=== PATIENT | male | born 1960 | race African-American/Black ===

== ENCOUNTER 2016-08-25 16:02 | Inpatient (IN) ==
[2016-08-25] MEDS ORDERED: *HR* Dextrose 50 % in Water (Syg) 50 ML SYRINGE IVP PRN ×2 (16:14→19:50)
--- NOTE | 2016-08-25 16:18 | Emergency Department Note ---
Disposition Clinical Impression: Hyperglycemia Altered mental status Qualifiers: Altered mental status type: unspecified Qualified Code(s): R41.82 - Altered mental status, unspecified Disposition: Admitted As Inpatient Condition: Undetermined Forms: ED Satisfaction Letter Time of Disposition: 17:46 General Adult HPI - General Chief complaint: ED Neuro Symptoms/Deficit Stated complaint: "I think he is having a stroke" Time Seen by Provider: 08/25/16 16:13 Source: patient, family Mode of arrival: ambulatory Limitations: altered mental status Nursing Notes Reviewed: Yes Vital Signs Reviewed: Yes - History of Present Illness HPI Narrative: 56-year-old male with history of diabetes, CAD, CVA, CKD, arrives [facility] emergency department complaining of confusion. The patient's significant other states that yesterday evening the patient began complaining of confusion and not feeling well. The patient's daughter states that roughly 1 hour ago she was notified and decided to bring the patient to the hospital at that time. The patient's family is unaware of when his last CVA was. The patient has never received TPA in the past. The patient denies any previous history of [facility]. The patient denies any complaints at this time. He is oriented to person and place. Patient denies any other complaints at this time. Onset (ago): unknown Improves with: nothing Worsens with: nothing Associated symptoms: Reports: confusion - Related Data Home Medications Medication Instructions Recorded Confirmed Glimepiride [Amaryl] 2 mg PO 04/10/16 Simvastatin [Zocor] 10 mg PO 04/10/16 Previous Rx's Medication Instructions Recorded Gentamicin OPTH Soln 1 drop LEFT EYE QID #1 bottle 04/10/16 Allergies Allergy/AdvReac Type Severity Reaction Status Date / Time No Known Allergies Allergy Verified 08/25/16 16:09 Constitutional: Denies: fever, chills, weakness, weight change Eyes: Denies: eye pain, eye discharge, vision change ENT ED: Denies: ear pain, throat pain, dental pain, hearing loss, epistaxis, congestion, dysphagia Cardiovascular: Denies: chest pain, palpitations, dyspnea on exertion, edema, syncope Respiratory: Denies: cough, dyspnea, wheezes, hemoptysis, stridor Gastrointestinal: Denies: abdominal pain, nausea, vomiting, diarrhea, constipation, hematemesis, melena, hematochezia Genitourinary: Denies: urgency, dysuria, frequency, hematuria Musculoskeletal: Denies: back pain, neck pain, arthralgia, myalgia Integumentary: Denies: rash, abrasion, lesions Neurological: Reports: confusion. Denies: headache, weakness, numbness, paresthesias Past Medical History - Past Medical History Attestation: Yes The following information was validated with the patient. Source: patient Medical history: Reports: coronary artery disease, CVA, diabetes, hyperlipidemia , hypertension Surgical history: Reports: non-contributory Psychiatric history: Reports: no psych history - Social History Smoking Status: Current every day smoker Smokeless Tobacco Status: No Alcohol use: Reports: none Drug use: Reports: none Physical Exam - General Limitations: altered mental status General appearance: alert, in no apparent distress - Head Head exam: atraumatic, normocephalic, normal inspection - Eye Eye exam: Present: normal appearance, PERRL, EOMI - ENT ENT exam: normal exam, normal oropharynx, mucous membranes moist - Chest Chest inspection: Present: normal inspection, symmetric chest wall rise - Respiratory Respiratory exam: Present: normal lung sounds bilaterally - Cardiovascular Cardiovascular exam: Present: regular rate, normal rhythm, normal heart sounds - Abdominal Exam Abdominal exam: Present: soft, Non-Tender. Absent: tenderness, distention, guarding, rebound, rigidity - Extremities Exam Extremities exam: Present: normal inspection, full ROM. Absent: tenderness, pedal edema - Neurological Exam Neurological exam: Present: alert - Expanded Neurological Exam Patient oriented to: Present: person, place. Absent: time Speech: Present: expressive aphasia Cranial nerves: EOM function (II, III, IV, ): Normal, facial sensation (V): Normal, facial palsy (VII): Normal, gag reflex (IX): Normal, spinal accessory function (XI): Normal, tongue deviation (XII): Normal Motor strength - LUE: 5/5 Motor strength - RUE: 5/5 Motor strength - LLE: 5/5 Motor strength - RLE: 5/5 Sensory exam upper extremity: light touch: Normal Sensory exam lower extremity: light touch: Normal Coma Scale Eye Opening: Spontaneous Coma Scale Motor Response: Obeys Commands Coma Scale Verbal Response: Confused Coma Scale Total: 14 - Skin Skin exam: Present: warm, dry, intact, normal color Course Vital Signs Temperature 99.4 F 08/25/16 16:09 Pulse Rate 81 08/25/16 16:09 Respiratory Rate 16 08/25/16 16:09 Blood Pressure 150/84 08/25/16 16:09 O2 Sat by Pulse Oximetry 96 08/25/16 16:09 Temperature 99.4 F 08/25/16 16:09 Pulse Rate 74 08/25/16 17:15 Respiratory Rate 17 08/25/16 16:18 Blood Pressure 130/73 08/25/16 17:15 O2 Sat by Pulse Oximetry 97 08/25/16 17:15 Oxygen Delivery Oxygen Delivery Room Air Medical Decision Making - MDM Narrative Medical decision making narrative: Accepted to hospitalist - Medical Records Medical records reviewed: Yes I reviewed the patient's medical records. - Lab Data Lab results reviewed: Yes I reviewed the patient's lab results. Result diagrams: 08/25/16 16:19 08/25/16 16:19 Lab Results 08/25/16 08/25/16 08/25/16 Range/Units 16:11 16:19 16:19 WBC 8.6 (4.3-11.1) K/mcL RBC 4.81 (4.19-5.50) M/mcL Hgb 13.9 (12.9-16.9) g/dL Hct 41.4 (37.5-50.1) % MCV 86.1 (83.0-100.0) fL MCH 28.9 (28.0-33.3) pg MCHC 33.6 (31.6-35.5) g/dL RDW 12.5 (11.5-14.5) % Plt Count 249 (140-400) K/mcL MPV 11.0 (9.4-12.4) fL Immature Gran % 0.2 (0-4) % Seg Neutrophils % 75.9 % Lymphocytes % 16.2 % Monocytes % 5.5 % Eosinophils % 1.5 % Basophils % 0.7 % Neutrophils # 6.5 (1.6-8.9) K/mcL Lymphocytes # 1.4 (0.6-4.6) K/mcL Monocytes # 0.5 (0.0-1.3) K/mcL Eosinophils # 0.1 (0.0-0.6) K/mcL Basophils # 0.1 (0.0-0.2) K/mcL VBG pH (7.32-7.42) pH Units VBG pCO2 (41-51) mmHg VBG pO2 (25-40) mmHg VBG HCO3 (21-27) mEq/L Sodium 137 (136-145) mEq/L Potassium 3.8 (3.5-4.5) mEq/L Chloride 100 (98-109) mEq/L Carbon Dioxide 26 (19-29) mEq/L BUN 14 (8-26) mg/dL Creatinine 1.38 H (0.72-1.25) mg/dL Est GFR ( Amer) > 60 (> 60) Est GFR (Non-Af Amer) 53 L (> 60) BUN/Creatinine Ratio 10 (6-26) Glucose 647 H* (70-99) mg/dL POC Glucose 545 H* (58-89) Calculated Osmolality 315 H (280-300) Lactic Acid (0.5-2.2) mmol/L Calcium 9.0 (8.6-10.8) mg/dL Total Bilirubin 0.6 (0.2-1.2) mg/dL AST 12 (5-34) Units/L ALT 25 (0-55) Units/L Alkaline Phosphatase 134 H (38-126) Units/L Troponin I (0-0.03) ng/mL Serum Total Protein 7.7 (6.0-8.3) g/dL Albumin 3.8 (3.5-5.0) g/dL Globulin 3.9 H (2.4-3.5) g/dL Albumin/Globulin Ratio 1.0 L (1.1-2.2) Beta-Hydroxybutyric Acd 0.21 (0.02-0.27) mmol/L Urine Color (Yellow) Urine Clarity (Clear) Urine pH (5.0-8.0) pH Units Ur Specific [place] (1.010-1.025) Urine Protein (Neg-Trace) mg/dL Urine Glucose (UA) (Normal) mg/dL Urine Ketones (Negative) mg/dL Urine Blood (Negative) Urine Nitrite (Negative) Urine Bilirubin (Negative) Urine Urobilinogen (Normal) mg/dL Ur Leukocyte Esterase (Negative) Ur Culture Indicated? (NO) Urine Opiates Screen (Hpjktd=116) ng/mL Ur Barbiturates Screen (Bljsxy=147) ng/mL Ur Phencyclidine Scrn (Cutoff=25) ng/mL Ur Amphetamines Screen (Ctzubk=4779) ng/mL U Benzodiazepines Scrn (Qnqkjz=320) ng/mL Urine Cocaine Screen (Cutoff= 300) ng/mL U Marijuana (THC) Screen (Cutoff = 50) ng/mL 08/25/16 08/25/16 08/25/16 Range/Units 16:19 16:19 16:35 WBC (4.3-11.1) K/mcL RBC (4.19-5.50) M/mcL Hgb (12.9-16.9) g/dL Hct (37.5-50.1) % MCV (83.0-100.0) fL MCH (28.0-33.3) pg MCHC (31.6-35.5) g/dL RDW (11.5-14.5) % Plt Count (140-400) K/mcL MPV (9.4-12.4) fL Immature Gran % (0-4) % Seg Neutrophils % % Lymphocytes % % Monocytes % % Eosinophils % % Basophils % % Neutrophils # (1.6-8.9) K/mcL Lymphocytes # (0.6-4.6) K/mcL Monocytes # (0.0-1.3) K/mcL Eosinophils # (0.0-0.6) K/mcL Basophils # (0.0-0.2) K/mcL VBG pH 7.39 (7.32-7.42) pH Units VBG pCO2 46 (41-51) mmHg VBG pO2 85 H (25-40) mmHg VBG HCO3 27.8 H (21-27) mEq/L Sodium (136-145) mEq/L Potassium (3.5-4.5) mEq/L Chloride (98-109) mEq/L Carbon Dioxide (19-29) mEq/L BUN (8-26) mg/dL Creatinine (0.72-1.25) mg/dL Est GFR ( Amer) (> 60) Est GFR (Non-Af Amer) (> 60) BUN/Creatinine Ratio (6-26) Glucose (70-99) mg/dL POC Glucose (58-89) Calculated Osmolality (280-300) Lactic Acid 2.9 H (0.5-2.2) mmol/L Calcium (8.6-10.8) mg/dL Total Bilirubin (0.2-1.2) mg/dL AST (5-34) Units/L ALT (0-55) Units/L Alkaline Phosphatase (38-126) Units/L Troponin I 0.00 (0-0.03) ng/mL Serum Total Protein (6.0-8.3) g/dL Albumin (3.5-5.0) g/dL Globulin (2.4-3.5) g/dL Albumin/Globulin Ratio (1.1-2.2) Beta-Hydroxybutyric Acd (0.02-0.27) mmol/L Urine Color (Yellow) Urine Clarity (Clear) Urine pH (5.0-8.0) pH Units Ur Specific [place] (1.010-1.025) Urine Protein (Neg-Trace) mg/dL Urine Glucose (UA) (Normal) mg/dL Urine Ketones (Negative) mg/dL Urine Blood (Negative) Urine Nitrite (Negative) Urine Bilirubin (Negative) Urine Urobilinogen (Normal) mg/dL Ur Leukocyte Esterase (Negative) Ur Culture Indicated? (NO) Urine Opiates Screen (Xxltae=995) ng/mL Ur Barbiturates Screen (Fqazof=692) ng/mL Ur Phencyclidine Scrn (Cutoff=25) ng/mL Ur Amphetamines Screen (Cjqjgv=4233) ng/mL U Benzodiazepines Scrn (Ifiwis=856) ng/mL Urine Cocaine Screen (Cutoff= 300) ng/mL U Marijuana (THC) Screen (Cutoff = 50) ng/mL 08/25/16 08/25/16 Range/Units 16:55 16:55 WBC (4.3-11.1) K/mcL RBC (4.19-5.50) M/mcL Hgb (12.9-16.9) g/dL Hct (37.5-50.1) % MCV (83.0-100.0) fL MCH (28.0-33.3) pg MCHC (31.6-35.5) g/dL RDW (11.5-14.5) % Plt Count (140-400) K/mcL MPV (9.4-12.4) fL Immature Gran % (0-4) % Seg Neutrophils % % Lymphocytes % % Monocytes % % Eosinophils % % Basophils % % Neutrophils # (1.6-8.9) K/mcL Lymphocytes # (0.6-4.6) K/mcL Monocytes # (0.0-1.3) K/mcL Eosinophils # (0.0-0.6) K/mcL Basophils # (0.0-0.2) K/mcL VBG pH (7.32-7.42) pH Units VBG pCO2 (41-51) mmHg VBG pO2 (25-40) mmHg VBG HCO3 (21-27) mEq/L Sodium (136-145) mEq/L Potassium (3.5-4.5) mEq/L Chloride (98-109) mEq/L Carbon Dioxide (19-29) mEq/L BUN (8-26) mg/dL Creatinine (0.72-1.25) mg/dL Est GFR ( Amer) (> 60) Est GFR (Non-Af Amer) (> 60) BUN/Creatinine Ratio (6-26) Glucose (70-99) mg/dL POC Glucose (58-89) Calculated Osmolality (280-300) Lactic Acid (0.5-2.2) mmol/L Calcium (8.6-10.8) mg/dL Total Bilirubin (0.2-1.2) mg/dL AST (5-34) Units/L ALT (0-55) Units/L Alkaline Phosphatase (38-126) Units/L Troponin I (0-0.03) ng/mL Serum Total Protein (6.0-8.3) g/dL Albumin (3.5-5.0) g/dL Globulin (2.4-3.5) g/dL Albumin/Globulin Ratio (1.1-2.2) Beta-Hydroxybutyric Acd (0.02-0.27) mmol/L Urine Color Yellow (Yellow) Urine Clarity Clear (Clear) Urine pH 6.0 (5.0-8.0) pH Units Ur Specific [place] > 1.030 H (1.010-1.025) Urine Protein Negative (Neg-Trace) mg/dL Urine Glucose (UA) >=1000 H (Normal) mg/dL Urine Ketones Negative (Negative) mg/dL Urine Blood Negative (Negative) Urine Nitrite Negative (Negative) Urine Bilirubin Negative (Negative) Urine Urobilinogen Normal (Normal) mg/dL Ur Leukocyte Esterase Negative (Negative) Ur Culture Indicated? NO (NO) Urine Opiates Screen Negative (Xmgfpq=936) ng/mL Ur Barbiturates Screen Negative (Dbmrgd=864) ng/mL Ur Phencyclidine Scrn Negative (Cutoff=25) ng/mL Ur Amphetamines Screen Negative (Whyoih=6579) ng/mL U Benzodiazepines Scrn Negative (Afegyi=703) ng/mL Urine Cocaine Screen Negative (Cutoff= 300) ng/mL U Marijuana (THC) Screen Negative (Cutoff = 50) ng/mL - Radiology Data Radiology results reviewed: Yes I reviewed the patient's radiology results. - EKG Data EKG #1 EKG attestation: Yes I reviewed and interpreted this EKG. EKG results narrative: Heart rate 77 bpm. TN interval 160 ms. QTC 400 ms. Normal axis. Normal sinus rhythm. No ST elevation or ST depression noted. EKG similar to EKG from 03/22/2012. No acute changes noted.
[2016-08-25 16:37] LABS: Basophils # 0.1 K/mcL (0.0-0.2); Basophils % 0.7 %; Eosinophils # 0.1 K/mcL (0.0-0.6); Eosinophils % 1.5 %; Hematocrit 41.4 % (37.5-50.1); Hemoglobin 13.9 g/dL (12.9-16.9); Immature Granulocytes % 0.2 % (0-4); Lymphocytes # 1.4 K/mcL (0.6-4.6); Lymphocytes % 16.2 %; Mean Corpuscular HGB Conc 33.6 g/dL (31.6-35.5); Mean Corpuscular Hemoglobin 28.9 pg (28.0-33.3); Mean Corpuscular Volume 86.1 fL (83.0-100.0); Monocytes # 0.5 K/mcL (0.0-1.3); Monocytes % 5.5 %; Neutrophils # 6.5 K/mcL (1.6-8.9); Platelet Count 249 K/mcL (140-400); Red Blood Count 4.81 M/mcL (4.19-5.50); Red Cell Distribution Width 12.5 % (11.5-14.5); Segmented Neutrophils % 75.9 %
[2016-08-25 16:40] LABS: Beta-Hydroxybutyric Acid 0.21 mmol/L (0.02-0.27)
[2016-08-25 16:51] LABS: Alanine Aminotransferase 25 Units/L (0-55); Albumin 3.8 g/dL (3.5-5.0); Alkaline Phosphatase 134 Units/L (38-126); Aspartate Amino Transferase 12 Units/L (5-34); BUN/Creatinine Ratio 10 (6-26); Bilirubin,Total 0.6 mg/dL (0.2-1.2); Blood Urea Nitrogen 14 mg/dL (8-26); Carbon Dioxide 26 mEq/L (19-29); Chloride 100 mEq/L (98-109); Globulin 3.9 g/dL (2.4-3.5); Osmolality,Calculated 315 (280-300); Potassium 3.8 mEq/L (3.5-4.5); Sodium 137 mEq/L (136-145); Total Protein 7.7 g/dL (6.0-8.3); eGFR For African Americans > 60 (> 60); eGFR For Non-African Americans 53 (> 60)
[2016-08-25 16:53] LABS: VBG HCO3 27.8 mEq/L (21-27); VBG PH 7.39 pH Units (7.32-7.42)
[2016-08-25] MEDS: 0.9 % Sodium Chloride 1,000 ML IVC SCH ×3 (16:53→22:52)
[2016-08-25 16:55] LABS: Glucose 647 mg/dL (70-99)
[2016-08-25] MEDS ORDERED: Insulin Regular, Human 100 UNIT/ML IV ONE (16:58)
--- NOTE | 2016-08-25 16:58 | Emergency Department Note ---
Disposition Clinical Impression: Altered mental status, Hyperglycemia Disposition: Admitted As Inpatient Condition: Undetermined General Adult HPI - General Chief complaint: ED Neuro Symptoms/Deficit Stated complaint: "I think he is having a stroke" Time Seen by Provider: 08/25/16 16:13 Source: patient, family Mode of arrival: ambulatory Limitations: altered mental status - History of Present Illness Pain Scale: 0 Improves with: nothing Worsens with: nothing Associated symptoms: Reports: confusion - Related Data Home Medications Medication Instructions Recorded Confirmed Atorvastatin Calcium 80 mg PO HS 08/25/16 08/25/16 Cetirizine HCl [Zyrtec] 10 mg PO DAILY 08/25/16 08/25/16 Clopidogrel [Plavix] 75 mg PO DAILY 08/25/16 08/25/16 Glimepiride [Amaryl] 4 mg PO QAM 08/25/16 08/25/16 Lisinopril [Zestril] 20 mg PO DAILY 08/25/16 08/25/16 Pioglitazone HCl [Pioglitazone HCl] 30 mg PO DAILY 08/25/16 08/25/16 raNITIdine HCl [Ranitidine HCl] 150 mg PO BID 08/25/16 08/25/16 Allergies Allergy/AdvReac Type Severity Reaction Status Date / Time No Known Allergies Allergy Verified 08/25/16 16:09 Constitutional: Denies: fever, chills, weakness, weight change Eyes: Denies: eye pain, eye discharge, vision change ENT ED: Denies: ear pain, throat pain, dental pain, hearing loss, epistaxis, congestion, dysphagia Cardiovascular: Denies: chest pain, palpitations, dyspnea on exertion, edema, syncope Respiratory: Denies: cough, dyspnea, wheezes, hemoptysis, stridor Gastrointestinal: Denies: abdominal pain, nausea, vomiting, diarrhea, constipation, hematemesis, melena, hematochezia Genitourinary: Denies: urgency, dysuria, frequency, hematuria Musculoskeletal: Denies: back pain, neck pain, arthralgia, myalgia Integumentary: Denies: rash, abrasion, lesions Neurological: Reports: confusion. Denies: headache, weakness, numbness, paresthesias Past Medical History - Past Medical History Medical history: Reports: coronary artery disease, CVA, diabetes, hyperlipidemia , hypertension Surgical history: Reports: non-contributory Psychiatric history: Reports: no psych history - Social History Smoking Status: Current every day smoker Smokeless Tobacco Status: No Alcohol use: Reports: none Drug use: Reports: none Physical Exam - General Limitations: altered mental status General appearance: alert, in no apparent distress Course - Reevaluation(s) Reevaluation #1: I saw the patient with the resident, Dr. Yates. Patient was brought in by family saying that he has some altered mental status and they are concerned he might be having a stroke. The family disputes the exact duration of symptoms. Sounds like he may been having trouble since yesterday. Patient seems confused as he cannot even tell me why he is here in the emergency department. I do not find any focal neurologic deficits. We are going to do a workup on the patient that we will include a stroke workup but also look for metabolic issues and infectious issues. Disposition will be based on diagnostic results and reevaluation. Time: 16:57 Vital Signs Temperature 99.4 F 08/25/16 16:09 Pulse Rate 81 08/25/16 16:09 Respiratory Rate 16 08/25/16 16:09 Blood Pressure 150/84 08/25/16 16:09 O2 Sat by Pulse Oximetry 96 08/25/16 16:09 Temperature 99.4 F 08/25/16 16:09 Pulse Rate 68 08/25/16 18:37 Respiratory Rate 18 08/25/16 18:43 Blood Pressure 144/66 08/25/16 18:43 O2 Sat by Pulse Oximetry 97 08/25/16 18:37 Oxygen Delivery Oxygen Delivery Room Air Medical Decision Making - Lab Data Result diagrams: 08/25/16 16:19 08/25/16 16:19 Lab Results 08/25/16 08/25/16 08/25/16 Range/Units 16:11 16:19 16:19 WBC 8.6 (4.3-11.1) K/mcL RBC 4.81 (4.19-5.50) M/mcL Hgb 13.9 (12.9-16.9) g/dL Hct 41.4 (37.5-50.1) % MCV 86.1 (83.0-100.0) fL MCH 28.9 (28.0-33.3) pg MCHC 33.6 (31.6-35.5) g/dL RDW 12.5 (11.5-14.5) % Plt Count 249 (140-400) K/mcL MPV 11.0 (9.4-12.4) fL Immature Gran % 0.2 (0-4) % Seg Neutrophils % 75.9 % Lymphocytes % 16.2 % Monocytes % 5.5 % Eosinophils % 1.5 % Basophils % 0.7 % Neutrophils # 6.5 (1.6-8.9) K/mcL Lymphocytes # 1.4 (0.6-4.6) K/mcL Monocytes # 0.5 (0.0-1.3) K/mcL Eosinophils # 0.1 (0.0-0.6) K/mcL Basophils # 0.1 (0.0-0.2) K/mcL VBG pH (7.32-7.42) pH Units VBG pCO2 (41-51) mmHg VBG pO2 (25-40) mmHg VBG HCO3 (21-27) mEq/L Sodium 137 (136-145) mEq/L Potassium 3.8 (3.5-4.5) mEq/L Chloride 100 (98-109) mEq/L Carbon Dioxide 26 (19-29) mEq/L BUN 14 (8-26) mg/dL Creatinine 1.38 H (0.72-1.25) mg/dL Est GFR ( Amer) > 60 (> 60) Est GFR (Non-Af Amer) 53 L (> 60) BUN/Creatinine Ratio 10 (6-26) Glucose 647 H* (70-99) mg/dL POC Glucose 545 H* (58-89) Calculated Osmolality 315 H (280-300) Lactic Acid (0.5-2.2) mmol/L Calcium 9.0 (8.6-10.8) mg/dL Total Bilirubin 0.6 (0.2-1.2) mg/dL AST 12 (5-34) Units/L ALT 25 (0-55) Units/L Alkaline Phosphatase 134 H (38-126) Units/L Troponin I (0-0.03) ng/mL Serum Total Protein 7.7 (6.0-8.3) g/dL Albumin 3.8 (3.5-5.0) g/dL Globulin 3.9 H (2.4-3.5) g/dL Albumin/Globulin Ratio 1.0 L (1.1-2.2) Beta-Hydroxybutyric Acd 0.21 (0.02-0.27) mmol/L Urine Color (Yellow) Urine Clarity (Clear) Urine pH (5.0-8.0) pH Units Ur Specific [place] (1.010-1.025) Urine Protein (Neg-Trace) mg/dL Urine Glucose (UA) (Normal) mg/dL Urine Ketones (Negative) mg/dL Urine Blood (Negative) Urine Nitrite (Negative) Urine Bilirubin (Negative) Urine Urobilinogen (Normal) mg/dL Ur Leukocyte Esterase (Negative) Ur Culture Indicated? (NO) Urine Opiates Screen (Unojog=818) ng/mL Ur Barbiturates Screen (Xviosf=515) ng/mL Ur Phencyclidine Scrn (Cutoff=25) ng/mL Ur Amphetamines Screen (Dmygjv=1299) ng/mL U Benzodiazepines Scrn (Izitbl=611) ng/mL Urine Cocaine Screen (Cutoff= 300) ng/mL U Marijuana (THC) Screen (Cutoff = 50) ng/mL 08/25/16 08/25/16 08/25/16 Range/Units 16:19 16:19 16:35 WBC (4.3-11.1) K/mcL RBC (4.19-5.50) M/mcL Hgb (12.9-16.9) g/dL Hct (37.5-50.1) % MCV (83.0-100.0) fL MCH (28.0-33.3) pg MCHC (31.6-35.5) g/dL RDW (11.5-14.5) % Plt Count (140-400) K/mcL MPV (9.4-12.4) fL Immature Gran % (0-4) % Seg Neutrophils % % Lymphocytes % % Monocytes % % Eosinophils % % Basophils % % Neutrophils # (1.6-8.9) K/mcL Lymphocytes # (0.6-4.6) K/mcL Monocytes # (0.0-1.3) K/mcL Eosinophils # (0.0-0.6) K/mcL Basophils # (0.0-0.2) K/mcL VBG pH 7.39 (7.32-7.42) pH Units VBG pCO2 46 (41-51) mmHg VBG pO2 85 H (25-40) mmHg VBG HCO3 27.8 H (21-27) mEq/L Sodium (136-145) mEq/L Potassium (3.5-4.5) mEq/L Chloride (98-109) mEq/L Carbon Dioxide (19-29) mEq/L BUN (8-26) mg/dL Creatinine (0.72-1.25) mg/dL Est GFR ( Amer) (> 60) Est GFR (Non-Af Amer) (> 60) BUN/Creatinine Ratio (6-26) Glucose (70-99) mg/dL POC Glucose (58-89) Calculated Osmolality (280-300) Lactic Acid 2.9 H (0.5-2.2) mmol/L Calcium (8.6-10.8) mg/dL Total Bilirubin (0.2-1.2) mg/dL AST (5-34) Units/L ALT (0-55) Units/L Alkaline Phosphatase (38-126) Units/L Troponin I 0.00 (0-0.03) ng/mL Serum Total Protein (6.0-8.3) g/dL Albumin (3.5-5.0) g/dL Globulin (2.4-3.5) g/dL Albumin/Globulin Ratio (1.1-2.2) Beta-Hydroxybutyric Acd (0.02-0.27) mmol/L Urine Color (Yellow) Urine Clarity (Clear) Urine pH (5.0-8.0) pH Units Ur Specific [place] (1.010-1.025) Urine Protein (Neg-Trace) mg/dL Urine Glucose (UA) (Normal) mg/dL Urine Ketones (Negative) mg/dL Urine Blood (Negative) Urine Nitrite (Negative) Urine Bilirubin (Negative) Urine Urobilinogen (Normal) mg/dL Ur Leukocyte Esterase (Negative) Ur Culture Indicated? (NO) Urine Opiates Screen (Ykljgq=578) ng/mL Ur Barbiturates Screen (Tpkxla=767) ng/mL Ur Phencyclidine Scrn (Cutoff=25) ng/mL Ur Amphetamines Screen (Yweshv=0933) ng/mL U Benzodiazepines Scrn (Hlmltf=739) ng/mL Urine Cocaine Screen (Cutoff= 300) ng/mL U Marijuana (THC) Screen (Cutoff = 50) ng/mL 06/06/17 06/06/17 Range/Units 16:55 16:55 WBC (4.3-11.1) K/mcL RBC (4.19-5.50) M/mcL Hgb (12.9-16.9) g/dL Hct (37.5-50.1) % MCV (83.0-100.0) fL MCH (28.0-33.3) pg MCHC (31.6-35.5) g/dL RDW (11.5-14.5) % Plt Count (140-400) K/mcL MPV (9.4-12.4) fL Immature Gran % (0-4) % Seg Neutrophils % % Lymphocytes % % Monocytes % % Eosinophils % % Basophils % % Neutrophils # (1.6-8.9) K/mcL Lymphocytes # (0.6-4.6) K/mcL Monocytes # (0.0-1.3) K/mcL Eosinophils # (0.0-0.6) K/mcL Basophils # (0.0-0.2) K/mcL VBG pH (7.32-7.42) pH Units VBG pCO2 (41-51) mmHg VBG pO2 (25-40) mmHg VBG HCO3 (21-27) mEq/L Sodium (136-145) mEq/L Potassium (3.5-4.5) mEq/L Chloride (98-109) mEq/L Carbon Dioxide (19-29) mEq/L BUN (8-26) mg/dL Creatinine (0.72-1.25) mg/dL Est GFR ( Amer) (> 60) Est GFR (Non-Af Amer) (> 60) BUN/Creatinine Ratio (6-26) Glucose (70-99) mg/dL POC Glucose (58-89) Calculated Osmolality (280-300) Lactic Acid (0.5-2.2) mmol/L Calcium (8.6-10.8) mg/dL Total Bilirubin (0.2-1.2) mg/dL AST (5-34) Units/L ALT (0-55) Units/L Alkaline Phosphatase (38-126) Units/L Troponin I (0-0.03) ng/mL Serum Total Protein (6.0-8.3) g/dL Albumin (3.5-5.0) g/dL Globulin (2.4-3.5) g/dL Albumin/Globulin Ratio (1.1-2.2) Beta-Hydroxybutyric Acd (0.02-0.27) mmol/L Urine Color Yellow (Yellow) Urine Clarity Clear (Clear) Urine pH 6.0 (5.0-8.0) pH Units Ur Specific [place] > 1.030 H (1.010-1.025) Urine Protein Negative (Neg-Trace) mg/dL Urine Glucose (UA) >=1000 H (Normal) mg/dL Urine Ketones Negative (Negative) mg/dL Urine Blood Negative (Negative) Urine Nitrite Negative (Negative) Urine Bilirubin Negative (Negative) Urine Urobilinogen Normal (Normal) mg/dL Ur Leukocyte Esterase Negative (Negative) Ur Culture Indicated? NO (NO) Urine Opiates Screen Negative (Sbjegj=513) ng/mL Ur Barbiturates Screen Negative (Gbpsaa=458) ng/mL Ur Phencyclidine Scrn Negative (Cutoff=25) ng/mL Ur Amphetamines Screen Negative (Ehxlbz=8739) ng/mL U Benzodiazepines Scrn Negative (Xthhkn=612) ng/mL Urine Cocaine Screen Negative (Cutoff= 300) ng/mL U Marijuana (THC) Screen Negative (Cutoff = 50) ng/mL Attestation Statement - Attestation Attestation: I, Dr. Taylor, examined this patient [id number] and my medical decision- making was reviewed with Dr. Yates, Resident Physician. I agree with the documented findings, disposition and treatment plan as described except to the extent set forth below. Please see my progress notes for details.
[2016-08-25 17:06] LABS: Bilirubin,Urine Negative (Negative); Blood,Urine Negative (Negative); Clarity,Urine Clear (Clear); Color,Urine Yellow (Yellow); Glucose,Urine (UA) >=1000 mg/dL (Normal); Ketones,Urine Negative (Negative); Leukocyte Esterase,Urine Negative (Negative); Nitrite,Urine Negative (Negative); Protein,Urine Negative (Neg-Trace); Specific Gravity,Urine > 1.030 (1.010-1.025); Urobilinogen,Urine Normal (Normal)
[2016-08-25 17:11] LABS: Amphetamine Screen,Urine Negative ng/mL (Cutoff=1000); Barbiturate Screen,Urine Negative ng/mL (Cutoff=200); Benzodiazepines Screen,Urine Negative ng/mL (Cutoff=200); Cannabinoid Screen,Urine Negative ng/mL (Cutoff = 50); Cocaine Screen,Urine Negative ng/mL (Cutoff= 300); Opiate Screen,Urine Negative ng/mL (Cutoff=300); Phencyclidine Screen,Urine Negative ng/mL (Cutoff=25)
[2016-08-25] MEDS ORDERED: Dextrose Gel 15 GM PO PRN ×2 (19:50)
[2016-08-25] MEDS ORDERED: D5% in Water 1,000 ML IVC PRN (19:50)
[2016-08-25] MEDS ORDERED: Ipratropium/Albuterol Neb 3 ML IH PRN (19:53)
[2016-08-25] MEDS ORDERED: Nitroglycerin 0.4 MG TAB.SUBL SL PRN (19:53)
[2016-08-25] MEDS ORDERED: Acetaminophen 325 MG TABLET PO PRN (19:55)
[2016-08-25] MEDS ORDERED: Naloxone 0.4 MG/ML INJ IVP PRN (19:55)
[2016-08-25] MEDS ORDERED: *HR* Morphine 2 MG/ML SYRINGE IVP PRN (19:55)
[2016-08-25] MEDS ORDERED: Ondansetron 4 MG/2 ML VIAL IVP PRN (19:55)
[2016-08-25] MEDS ORDERED: Insulin LISPRO 300 UNITS/3 ML VIAL SQ SCH ×3 (20:00→21:00)
--- NOTE | 2016-08-25 20:01 | Internal Med History&Physical ---
Date of Encounter: 08/25/16 Time of Encounter: 19:58 Assessment and Plan (1) Hyperosmolar non-ketotic state in patient with type 2 diabetes mellitus Current visit: Yes Status: Acute Continue with Levemir 10 units at night, and insulin lispro 3 units 3 times a day plus a sliding scale Consider starting insulin drip Continue oral hypoglycemic agents Ordered hemoglobin A1c for the morning The patient will be admitted as inpatient, expected stay more than 2 midnights. Full code. Time spent on these admission 40 minutes. High risk for CVA (2) CVA (cerebral vascular accident) Current visit: Yes Status: Acute Possible new acute CVA of the CT scan shows possibly new scattered lacunar infarcts Start aspirin, continue Plavix Neurochecks Other MRI of the brain, echocardiogram and carotid ultrasounds Neurology consult Physical therapy Qualifiers: CVA mechanism: unspecified Qualified Code(s): I63.9 - Cerebral infarction, unspecified (3) Slurred speech Current visit: Yes Status: Acute (4) Hypertension Current visit: Yes Status: Acute Permissive hypertension Qualifiers: Hypertension type: essential hypertension Qualified Code(s): I10 - Essential (primary) hypertension (5) Tobacco abuse Current visit: Yes Status: Acute Smoking cessation counseling given for 5 minutes. Offer nicotine patch (6) CKD (chronic kidney disease) stage 3, GFR 30-59 ml/min Current visit: Yes Status: Acute (7) Altered mental status Current visit: Yes Status: Acute Possibly from metabolic encephalopathy from hyper glycemic nonketotic state versus CVA Qualifiers: Altered mental status type: unspecified Qualified Code(s): R41.82 - Altered mental status, unspecified Internal Medicine - H&P: HPI Chief complaint: After mental status and elevated glucose Admitted From: Emergency Dept History of present illness: Mr. Chapman is a 56 year old male with a past medical history of diabetes type 2 not insulin-dependent, CVA, CAD, hypertension, hyperlipidemia, who came to the emergency room brought by his family members as they thought he was having a stroke. Patient has been more confused lately and his speech has been more slurred than usual. In the emergency room she was found to have a glucose of 647 CT scan of the head showed chronic lacunar infarcts with generalized diffuse atrophy in the thalamic areas lior, unknown whether there are new or old. The patient is alert, he is a poor historian. He has a chronic left upper extremity weakness. The patient received 5 units of IV insulin down the emergency room and his glucose dropped to the 300s. His blood pressure is 150/ 84. He is able to follow commands, denies any other symptoms or complaints at the moment. Does not use any insulin at home. Past Med Surg Social Fam HX - Past Medical History Medical history: coronary artery disease, CVA, diabetes (Not insulin-dependent) , hyperlipidemia, hypertension, other (Tobacco use, chronic kidney disease stage III, hyperosmolar nonketotic state) Psychiatric history: no psych history - Past Surgical History Surgical History: no surgical history - Social History Smoking Status: Current every day smoker Packs per day: 1 pack per day Smokeless Tobacco Status: No Alcohol use: none Drug use: none - Additional Family History Additional family history: Father with CVA and myocardial infarction in his 50s , other family members with diabetes Internal Medicine - H&P: Meds Atorvastatin Calcium 80 mg PO HS 08/25/16 [History] Cetirizine HCl [Zyrtec] 10 mg PO DAILY 08/25/16 [History] Clopidogrel [Plavix] 75 mg PO DAILY 08/25/16 [History] Glimepiride [Amaryl] 4 mg PO QAM 08/25/16 [History] Lisinopril [Zestril] 20 mg PO DAILY 08/25/16 [History] Pioglitazone HCl [Pioglitazone HCl] 30 mg PO DAILY 08/25/16 [History] raNITIdine HCl [Ranitidine HCl] 150 mg PO BID 08/25/16 [History] Allergies No Known Allergies Allergy (Verified 08/25/16 16:09) All Systems PM: A 10-system review of systems was performed and is negative for pertinent findings except as documented above in the HPI. Review of systems: Slurred speech, other systems out of the 10 reviewed are negative - Constitutional Vitals: Temp Pulse Resp BP Pulse Ox 98.1 F 57 16 126/66 97 08/25/16 19:30 08/25/16 19:30 08/25/16 19:30 08/25/16 19:30 08/25/16 19:30 General appearance: Present: A&O X 3 (Slurred speech) - Head Head exam: Present: atraumatic, normocephalic - Eye Eye exam: Present: PERRL, conjuntiva pink, sclera anicteric Pupils: Present: PERRL - Neck Neck exam general surgery: Present: supple, trachea midline. Absent: lymphadenopathy - Respiratory Respiratory exam: Present: CTAB. Absent: accessory muscle use, rales, rhonchi, wheezes - Cardiovascular Cardiovascular exam: Present: RRR, +S1, +S2. Absent: diastolic murmur, gallop, rubs, systolic murmur - GI/Abdominal GI/Abdominal exam: Present: normal bowel sounds, soft, no peritoneal signs. Absent: distended, tenderness - Extremities Exam Extremities exam: Present: warm, radial pulses palpable and symetrical. Absent : calf tenderness, cyanotic, pedal edema Additional comments: slight weakness on the left upper extremity - Neurological Exam Neurological exam: Present: CN II-XII intact, oriented X3, no focal deficits. Absent: pronater drift, facial droop, speech deficit - Skin Skin exam: Present: dry, intact Internal Med - H&P Results - Labs CBC & Chem 7: 08/25/16 16:19 08/25/16 16:19
[2016-08-25] MEDS ORDERED: Insulin DETEMIR 100 UNIT/ML X5UNITS SQ SCH ×2 (21:00→21:10)
[2016-08-25] MEDS: Aspirin Enteric Coated 325 MG Tablet PO SCH (21:13)
[2016-08-25] MEDS: Famotidine 20 MG TABLET PO SCH (21:13)
[2016-08-25] MEDS: Insulin DETEMIR 100 UNIT/ML X5UNITS SQ SCH (22:50)
[2016-08-25] MEDS: *HR* Enoxaparin 40 MG/0.4 ML SYRINGE SQ SCH (22:50)
[2016-08-25] MEDS: Insulin LISPRO 300 UNITS/3 ML VIAL SQ SCH (22:51)
[2016-08-25] MEDS: Nicotine 21 MG PATCH.TD24 TD SCH (22:58)
[2016-08-26 05:06] LABS: Hemoglobin A1C 8.8 %
[2016-08-26 05:17] LABS: BUN/Creatinine Ratio 11 (6-26); Blood Urea Nitrogen 10 mg/dL (8-26); Calcium 8.4 mg/dL (8.6-10.8); Carbon Dioxide 24 mEq/L (19-29); Chloride 112 mEq/L (98-109); Glucose 154 mg/dL (70-99); Osmolality,Calculated 300 (280-300); Potassium 3.2 mEq/L (3.5-4.5); eGFR For African Americans > 60 (> 60); eGFR For Non-African Americans > 60 (> 60)
[2016-08-26 05:18] LABS: Sodium 144 mEq/L (136-145)
[2016-08-26] MEDS: *HR* Enoxaparin 40 MG/0.4 ML SYRINGE SQ SCH (05:49)
[2016-08-26] MEDS ORDERED: *HR* Glimepiride 4 MG TABLET PO SCH (09:00)
[2016-08-26] MEDS ORDERED: *HR* Pioglitazone 30 MG TABLET PO SCH (09:00)
[2016-08-26] MEDS: Nicotine 21 MG PATCH.TD24 TD SCH (10:02)
[2016-08-26] MEDS: Aspirin Enteric Coated 325 MG Tablet PO SCH (10:02)
[2016-08-26] MEDS: Lisinopril 20 MG TABLET PO SCH (10:02)
[2016-08-26] MEDS: Famotidine 20 MG TABLET PO SCH ×2 (10:02→20:58)
[2016-08-26] MEDS: Insulin LISPRO 300 UNITS/3 ML VIAL SQ SCH ×4 (10:03→20:59)
--- NOTE | 2016-08-26 15:24 | Electrocardiograph Report ---
[place] [address] Test Date: 2016-08-25 Pat Name: Cristian Chapman Department: 104 Room: 3B Gender: M Systems Developer: : 1960 Requested By: Tristen Yates Order Number: [id number] Reading MD: Janes Edward MD Measurements Intervals [place] Rate: 77 P: 55 TN: 160 QRS: 4 QRSD: 97 T: 61 QT: 368 QTc: 400 Interpretive Statements SINUS RHYTHM Electronically Signed On 08-26-2016 15:23:20 EDT by Janes Edward MD
--- NOTE | 2016-08-26 17:22 | Neurology - Consult Note ---
Date of Encounter: 08/26/16 Time of Encounter: 17:19 Assessment and Plan (1) CVA (cerebral vascular accident) Current Visit: Yes Status: Acute Patient has experienced an acute pontine infarct eccentric to the left which is resulting n a left-sided weakness as well as significant dysarthric speech. I would not expect a pontine infarct was resultant confusion however. This is the result of a small vessel infarct which is associated with his risk factors of poorly controlled diabetes mellitus, and cigarette smoking. I did inform Mr. Chapman that this is a very malignant combination. Not certain whether or not he understands the significance of all of this. Smoking cessation is absolutely necessary. As is better compliance. I would also recommend Plavix 75 mg daily indefinitely. Stroke protocol orders should be implemented. I will reevaluate him at your request. The documentation in the history of HPI and plan were at least partially created by [employer] voice recognition technology by Dr. Chapman. Errors in grammar, wording or other phrases may exist. If errors are found after the documentation signed, they will be addressed individually in the addendum section of this document when appropriate. Qualifiers: CVA mechanism: unspecified Qualified Code(s): I63.9 - Cerebral infarction, unspecified History of Present Illness HPI: Mr. Chapman is a 56 year old male who was seen for neurologic consultation secondary to an acute pontine infarction. This gentleman has a known history of diabetes and is apparently noncompliant because he came in with glucose level of 647. He also smokes a pack sequence a day. He states that at the time that his symptoms onset he was apparently eating at [employer] with his family. He suddenly developed dysarthric speech. Apparently he also had some confusion. He is not a good historian. He is very cooperative. He denies taking aspirin daily. He denies difficulty swallowing. He does have left sided weakness. I did review the MRI scan of the brain which does reveal a left central pontine infarction. I did review the MRI scan myself and also reveals severe deep white matter ischemic change along with multiple bilateral lacunar infarcts. Carotid duplex Doppler and echocardiogram were unrevealing. His blood pressure was mildly elevated but not severely. Past Med Surg Social Fam HX - Past Medical History Medical history: coronary artery disease, CVA, diabetes, hyperlipidemia, hypertension, other Psychiatric history: no psych history - Past Surgical History Surgical History: no surgical history - Social History Smoking Status: Current every day smoker Packs per day: 1 pack per day Smokeless Tobacco Status: No Alcohol use: none Drug use: none Medications and Allergies Atorvastatin Calcium 80 mg PO HS 08/25/16 [History] Cetirizine HCl [Zyrtec] 10 mg PO DAILY 08/25/16 [History] Clopidogrel [Plavix] 75 mg PO DAILY 08/25/16 [History] Glimepiride [Amaryl] 4 mg PO QAM 08/25/16 [History] Lisinopril [Zestril] 20 mg PO DAILY 08/25/16 [History] Pioglitazone HCl [Pioglitazone HCl] 30 mg PO DAILY 08/25/16 [History] raNITIdine HCl [Ranitidine HCl] 150 mg PO BID 08/25/16 [History] Allergies No Known Allergies Allergy (Verified 08/25/16 16:09) All Systems: A 10-system review of systems was performed and is negative for pertinent findings except as documented above in the HPI. Physical Examination - Vital Signs Vital Signs: Initial Vital Signs Temp Pulse Resp BP Pulse Ox 99.4 F 81 16 150/84 96 08/25/16 16:09 08/25/16 16:09 08/25/16 16:09 08/25/16 16:09 08/25/16 16:09 - Constitutional General appearance: comfortable - Neurologic Sensorimotor examination: intact Motor examination - right side: 5/5: deltoids, biceps, triceps, wrist flexion, hydrocrane operator, hip flexors, tibialis Anterior, quadriceps, plantarflexion Motor examination - left side: 4/5: deltoids, biceps, triceps, wrist flexion, hip flexors, hydrocrane operator, quadriceps, tibialis Anterior, plantarflexion Detailed sensory examination: intact Mental Status Examination: Patient is awake alert and oriented to person place. He is not a very good historian. He does appear to have some motor apraxia with command following. There is no agnosia. Speech is very dysarthric. Results - Laboratory Findings CBC and BMP: 08/25/16 16:19 08/26/16 04:25 Abnormal lab findings: Abnormal lab results VBG pO2 85 mmHg (25-40) H 08/25/16 16:35 VBG HCO3 27.8 mEq/L (21-27) H 08/25/16 16:35 Potassium 3.2 mEq/L (3.5-4.5) L 08/26/16 04:25 Chloride 112 mEq/L (98-109) H 08/26/16 04:25 Glucose 154 mg/dL (70-99) H 08/26/16 04:25 POC Glucose 284 (58-89) H 08/26/16 12:33 Hemoglobin A1c 8.8 % (-5.6) H 08/26/16 04:25 Lactic Acid 2.9 mmol/L (0.5-2.2) H 08/25/16 16:19 Calcium 8.4 mg/dL (8.6-10.8) L 08/26/16 04:25 Alkaline Phosphatase 134 Units/L (38-126) H 08/25/16 16:19 Globulin 3.9 g/dL (2.4-3.5) H 08/25/16 16:19 Albumin/Globulin Ratio 1.0 (1.1-2.2) L 08/25/16 16:19 Ur Specific [place] > 1.030 (1.010-1.025) H 08/25/16 16:55 Urine Glucose (UA) >=1000 mg/dL (Normal) H 08/25/16 16:55 Consult Discharge Plan - Plan Instructions: Ischemic Stroke (DC)
--- NOTE | 2016-08-26 17:23 | Internal Med Progress Note ---
Date of Encounter: 08/26/16 Time of Encounter: 10:20 - Assessment and plan (1) Hyperosmolar non-ketotic state in patient with type 2 diabetes mellitus Current Visit: Yes Status: Resolved Assessment and plan: Osmolality has returned to normal, 300. Blood glucose has been around 200 or less today. (2) CVA (cerebral vascular accident) Current Visit: Yes Status: Acute Assessment and plan: Last night after admission, patient began having slurred speech. He was evaluated by admitting physician and sent for MRI. It does show an acute ischemic lacunar infarct in the left. Midline lior. There is no evidence of intracranial hemorrhage or mass there are remote multifocal lacunar infarcts and chronic white matter ischemic changes. He does have obvious left-sided deficits, he has had prior CVA. Patient states that he has had these deficits in the past. He does have facial droop, left arm and left leg weakness on the left side. Facial movements are not symmetric. He does have obvious slurred speech. He has been seen by neurology. Plavix 75 mg indefinitely has been recommended, as well as smoking cessation and better glycemic control. We will discuss this again with patient in the morning. Neurology has signed off. PT is recommending inpatient rehabilitation or discharge. Qualifiers: CVA mechanism: unspecified Qualified Code(s): I63.9 - Cerebral infarction, unspecified (3) Slurred speech Current Visit: Yes Status: Acute Assessment and plan: Plan as above (4) Diabetes Current Visit: No Status: Acute Assessment and plan: Patient's blood glucose has been around 200. His A1c is 8.8. We need to maintain better glucose control. Continue diabetic diet, Accu-Cheks before meals at bedtime, sliding scale insulin. Qualifiers: Diabetes mellitus type: other specified (including NELI) Diabetes mellitus complication status: with hyperglycemia Qualified Code(s): E13.65 - Other specified diabetes mellitus with hyperglycemia (5) CKD (chronic kidney disease) stage 3, GFR 30-59 ml/min Current Visit: Yes Status: Acute Assessment and plan: Creatinine is within normal limits at 0.87 today. Continue to avoid nephrotoxins Avoid NSAIDs Monitor labs. - Time Spent With Patient less than 15 minutes - Subjective Interval history: Patient just arrived back in room from testing when I saw him. He is alert and oriented, speech is slurred, although he does answer questions appropriately. He does have prior left-sided deficit from CVA. Is decidedly weakon left. Does have rleft-sided facial droop. Family members at bedside state that he appears normal. He did pass his swallow exam and was eating a regular diet when I entered the room he was not having any difficulty. Neurology is here seeing him now. His blood sugar has been around 200 today. - Constitutional Vitals: Temp Pulse Resp BP Pulse Ox 98.2 F 63 16 155/73 96 08/26/16 16:17 08/26/16 16:17 08/26/16 16:17 08/26/16 16:17 08/26/16 16:17 General appearance: Present: A&O X 3 (Slurred speech), pleasant, answers questions appropriately - Head Head exam: Present: normal inspection - Eye Eye exam: Present: normal appearance, conjuntiva pink. Absent: nystagmus - ENT ENT exam: Present: mucous membranes moist, normal exam - Neck Neck exam general surgery: Present: normal inspection. Absent: lymphadenopathy , tenderness, nuchal rigidity - Respiratory Respiratory exam: Present: CTAB. Absent: rales, respiratory distress, rhonchi, stridor, wheezes - Cardiovascular Cardiovascular exam: Present: RRR, +S1, +S2. Absent: clicks, diastolic murmur, gallop, systolic murmur - Expanded Cardiovascular Exam Peripheral pulses: 1+: Dorsalis Pedis (L) PM, Dorsalis Pedis (R) PM - GI/Abdominal GI/Abdominal exam: Present: normal bowel sounds, soft. Absent: distended, firm , hepatomegaly, splenomegaly, tenderness - Extremities Exam Extremities exam: Present: normal inspection, pedal edema, warm, radial pulses palpable and symetrical. Absent: tenderness - Neurological Exam Neurological exam: Present: alert, motor sensory deficit, oriented X3, pronater drift, facial droop, speech deficit. Absent: altered, strengths equal and symetr throughout Internal Medicine: Result - Labs CBC & Chem 7: 08/25/16 16:19 08/26/16 04:25 Labs: BMP 08/26/16 04:25 Sodium 144 D Potassium 3.2 L Chloride 112 H Carbon Dioxide 24 BUN 10 Creatinine 0.87 Glucose 154 H Calcium 8.4 L Consult Discharge Plan - Plan Instructions: Ischemic Stroke (DC) Referrals: Anthony Angulo MD [Primary Care Provider] -
--- NOTE | 2016-08-26 19:06 | Carotid Imaging Report ---
Carotid Duplex Patient Name:Cristian Chapman Order Number:[id number] Procedure Date:08/26/2016 Date:1960Age:56 yrs Gender:Male Lt BP:133 / 75 mmHg Rt.BP:133 / 75 mmHgHeart Rate: Location:[facility] Room #: 34 Electrical Control Assembler:Lidia Erwin Referring MD:Christiano Porter MD shed workers supervisor:None Reading MD:Parminder Andrews MD Primary Indications:Slurred speech Risk Factors Yes/No Hypertension Hypercholesterolemia Diabetes Hx of CVA Hx of CAD/PTCA Family History Smoking Current Impressions: The right carotid artery bifurcation has a 40-59% stenosis. The left carotid artery bifurcation has a 40-59% stenosis. Recommendations: Risk factor reduction. Follow-up carotid duplex in 1 year. Findings Carotid Duplex: Right: The right distal common carotid artery has turbulent flow with plaque. There is smooth homogeneous plaque. There is 40-59% stenosis in the right bifurcation. There is smooth homogeneous plaque. Left: The left mid common carotid artery has turbulent flow with plaque. There is highly irregular homogeneous plaque. The left distal common carotid artery has turbulent flow with plaque. There is smooth homogeneous plaque. There is 40-59% stenosis in the left bifurcation. There is smooth homogeneous plaque. There is nonstenotic plaque in the left eca. There is smooth homogeneous plaque. Carotid Results Right PSV EDV Assessment Proximal CCA 133 20 Normal Mid CCA 128 28 Normal Distal CCA 168 25 Non Stenotic Plaque Bifurcation 147 39 40-59% stenosis Proximal ICA 92 19 Normal Mid ICA 97 21 Normal Distal ICA 91 25 Normal ECA 115 13 Normal Vertebral Artery 57 8 Antegrade Flow Left PSV EDV Assessment Proximal CCA 76 20 Normal Mid CCA 502 86 Non Stenotic Plaque Distal CCA 220 30 Non Stenotic Plaque Bifurcation 172 24 40-59% stenosis Proximal ICA 82 25 Normal Mid ICA 91 24 Normal Distal ICA 78 24 Normal ECA 103 11 Non Stenotic Plaque Vertebral Artery 60 14 Antegrade Flow Ratio's Right ICA/CCA Ratio: 0.76 ICA/CCA Values: 97/128 Left ICA/CCA Ratio: 0.18 ICA/CCA Values: 91/502 Updated by Parminder Andrews MD on 08/26/2016 6:52:08 PM electronically signed on 08/26/2016 6:59:00 PM with status of Final
[2016-08-26] MEDS: Insulin DETEMIR 100 UNIT/ML X5UNITS SQ SCH (20:58)
[2016-08-26] MEDS: 0.9 % Sodium Chloride 1,000 ML IVC SCH (21:29)
[2016-08-27] MEDS: *HR* Enoxaparin 40 MG/0.4 ML SYRINGE SQ SCH (05:59)
[2016-08-27] MEDS: 0.9 % Sodium Chloride w KCl 40 MEQ/1,000 ML MLS IVC SCH ×2 (08:36→23:12)
[2016-08-27] MEDS: Aspirin Enteric Coated 325 MG Tablet PO SCH (08:37)
[2016-08-27] MEDS: Nicotine 21 MG PATCH.TD24 TD SCH ×2 (08:37→20:10)
[2016-08-27] MEDS: Insulin LISPRO 300 UNITS/3 ML VIAL SQ SCH ×4 (08:37→20:11)
[2016-08-27] MEDS: Famotidine 20 MG TABLET PO SCH ×2 (08:37→20:10)
[2016-08-27] MEDS: Lisinopril 20 MG TABLET PO SCH (08:37)
--- NOTE | 2016-08-27 16:31 | Internal Med Progress Note ---
Date of Encounter: 08/27/16 Time of Encounter: 09:00 - Assessment and plan (1) Hyperosmolar non-ketotic state in patient with type 2 diabetes mellitus Current Visit: Yes Status: Resolved (2) CVA (cerebral vascular accident) Current Visit: Yes Status: Acute Assessment and plan: MRI shows an acute ischemic lacunar infarct in the left. Midline lior. There is no evidence of intracranial hemorrhage or mass there are remote multifocal lacunar infarcts and chronic white matter ischemic changes. He does have obvious left-sided deficits, he has had prior CVA. Patient states that he has had these deficits in the past. He does have facial droop, left arm and left leg weakness on the left side. Facial movements are not symmetric. He does have obvious slurred speech. He has been seen by neurology. Plavix 75 mg indefinitely has been recommended, as well as smoking cessation and better glycemic control. PT is recommending inpatient rehabilitation or discharge. supervisor park workers is on board and will be making referrals. Patient will be here at least overnight pending placement. He is agreeable to this. Continue telemetry Continue to monitor patient Physical therapy Inpatient rehabilitation pending Qualifiers: CVA mechanism: unspecified Qualified Code(s): I63.9 - Cerebral infarction, unspecified (3) Slurred speech Current Visit: Yes Status: Acute Assessment and plan: Plan as above (4) Diabetes Current Visit: No Status: Acute Assessment and plan: Patient's blood glucose has been around 200. His A1c is 8.8. Continue diabetic diet, Accu-Cheks before meals at bedtime, sliding scale insulin. Qualifiers: Diabetes mellitus type: other specified (including NELI) Diabetes mellitus complication status: with hyperglycemia Qualified Code(s): E13.65 - Other specified diabetes mellitus with hyperglycemia (5) CKD (chronic kidney disease) stage 3, GFR 30-59 ml/min Current Visit: Yes Status: Acute Assessment and plan: Continue to avoid nephrotoxins Avoid NSAIDs Monitor labs. - Time Spent With Patient less than 15 minutes - Subjective Interval history: Patient was seen and examined at 9 AM. The vicinity of his bed watching TV eating breakfast. He has no trouble with eating or drinking, swallowing. Patient's condition remains unchanged from yesterday. It is recommended that he have inpatient rehabilitation to regain strength. supervisor park workers is on board and has presented and requests to [facility]. Patient will be here at least overnight until decision is made. - Constitutional Vitals: Temp Pulse Resp BP Pulse Ox 98.2 F 51 20 144/77 96 08/27/16 14:56 08/27/16 14:56 08/27/16 14:56 08/27/16 14:56 08/27/16 14:56 General appearance: Present: cooperative, A&O X 3 (Slurred speech), pleasant, no acute distress, answers questions appropriately - Head Head exam: Present: normal inspection - Eye Eye exam: Present: EOMI, normal appearance, conjuntiva pink - ENT ENT exam: Present: mucous membranes moist, normal exam - Neck Neck exam general surgery: Present: normal inspection. Absent: lymphadenopathy , tenderness - Respiratory Respiratory exam: Present: CTAB. Absent: rales, respiratory distress, rhonchi, stridor, wheezes - Cardiovascular Cardiovascular exam: Present: RRR, +S1, +S2. Absent: diastolic murmur, systolic murmur - GI/Abdominal GI/Abdominal exam: Present: distended, normal bowel sounds, soft, tenderness. Absent: firm, hepatomegaly - Neurological Exam Neurological exam: Present: alert, motor sensory deficit, oriented X3, no focal deficits, facial droop, speech deficit. Absent: strengths equal and symetr throughout Internal Medicine: Result - Labs CBC & Chem 7: 08/25/16 16:19 08/26/16 04:25 Consult Discharge Plan - Plan Instructions: Ischemic Stroke (DC) Referrals: Anthony Angulo MD [Primary Care Provider] -
[2016-08-27] MEDS: Insulin DETEMIR 100 UNIT/ML X5UNITS SQ SCH (20:11)
[2016-08-28 05:17] LABS: Basophils # 0.1 K/mcL (0.0-0.2); Basophils % 0.6 %; Eosinophils # 0.1 K/mcL (0.0-0.6); Eosinophils % 1.5 %; Immature Granulocytes % 0.2 % (0-4); Lymphocytes # 1.5 K/mcL (0.6-4.6); Lymphocytes % 18.4 %; Mean Corpuscular Hemoglobin 29.5 pg (28.0-33.3); Mean Corpuscular Volume 86.8 fL (83.0-100.0); Mean Platelet Volume 10.9 fL (9.4-12.4); Monocytes # 0.5 K/mcL (0.0-1.3); Monocytes % 6.5 %; Neutrophils # 5.9 K/mcL (1.6-8.9); Platelet Count 194 K/mcL (140-400); Red Blood Count 4.03 M/mcL (4.19-5.50); Red Cell Distribution Width 12.7 % (11.5-14.5); Segmented Neutrophils % 72.8 %
[2016-08-28 05:23] LABS: Hemoglobin 11.9 g/dL (12.9-16.9)
[2016-08-28 05:35] LABS: BUN/Creatinine Ratio 16 (6-26); Blood Urea Nitrogen 14 mg/dL (8-26); Calcium 8.4 mg/dL (8.6-10.8); Carbon Dioxide 20 mEq/L (19-29); Chloride 115 mEq/L (98-109); Glucose 247 mg/dL (70-99); Osmolality,Calculated 305 (280-300); Potassium 3.8 mEq/L (3.5-4.5); Sodium 143 mEq/L (136-145); eGFR For African Americans > 60 (> 60); eGFR For Non-African Americans > 60 (> 60)
[2016-08-28] MEDS: *HR* Enoxaparin 40 MG/0.4 ML SYRINGE SQ SCH (05:45)
[2016-08-28] MEDS: Lisinopril 20 MG TABLET PO SCH (08:05)
[2016-08-28] MEDS: Famotidine 20 MG TABLET PO SCH (08:06)
[2016-08-28] MEDS: Insulin LISPRO 300 UNITS/3 ML VIAL SQ SCH ×3 (08:06→17:09)
[2016-08-28] MEDS: Nicotine 21 MG PATCH.TD24 TD SCH (08:06)
[2016-08-28] MEDS: Aspirin Enteric Coated 325 MG Tablet PO SCH (08:06)
[2016-08-28] MEDS: 0.9 % Sodium Chloride w KCl 40 MEQ/1,000 ML MLS IVC SCH (14:47)
[2016-08-28 14:59] VITALS: BP 139/65
--- NOTE | 2016-08-28 16:17 | Discharge Summary ---
Date of Encounter: 08/28/16 Time of Encounter: 10:45 - Discharge Diagnosis (1) Hyperosmolar non-ketotic state in patient with type 2 diabetes mellitus Priority: Primary Status: Resolved (2) CVA (cerebral vascular accident) Priority: Secondary Status: Acute Comments: Acute ischemic lacunar infarct in the left midline lior. No hemorrhage or mass. There are remote multifocal lacunar infarcts and chronic white matter ischemic changes. Patient has obvious left-sided deficits, he has had prior CVAs, as well. Patient states these deficits do not be. He does have left-sided facial droop, left arm and leg weakness, and obvious slurred speech. He was seen by neurology. He started Plavix 75 mg, we are working on smoking cessation, and he needs to have much better glycemic control. [facility]. These will be his healthcare goals. Qualifiers: CVA mechanism: unspecified Qualified Code(s): I63.9 - Cerebral infarction, unspecified (3) Slurred speech Priority: Secondary Status: Acute Comments: Plan as above (4) Diabetes Priority: Secondary Status: Acute Comments: Patient has had poor glycemic control. A1c is 8.8. Blood glucoses been around 200. He will need a diabetic diet, Accu-Cheks before meals and at bedtime, as well as sliding scale insulin. We will continue his home medications. Qualifiers: Diabetes mellitus type: other specified (including NELI) Diabetes mellitus complication status: with hyperglycemia Qualified Code(s): E13.65 - Other specified diabetes mellitus with hyperglycemia (5) CKD (chronic kidney disease) stage 3, GFR 30-59 ml/min Priority: Secondary Status: Chronic Comments: Stage III. Continue to avoid nephrotoxins and NSAIDs. Lab draws to monitor. - Discharge Medications Prescriptions: Nicotine Patch [Nicoderm] 21 mg TD DAILY #15 patch.td24 Home Medications: Atorvastatin Calcium 80 mg PO HS 08/25/16 [History] Cetirizine HCl [Zyrtec] 10 mg PO DAILY 08/25/16 [History] Clopidogrel [Plavix] 75 mg PO DAILY 08/25/16 [History] Glimepiride [Amaryl] 4 mg PO QAM 08/25/16 [History] Lisinopril [Zestril] 20 mg PO DAILY 08/25/16 [History] Pioglitazone HCl 30 mg PO DAILY 08/25/16 [History] raNITIdine HCl [Ranitidine HCl] 150 mg PO BID 08/25/16 [History] Acetaminophen [Tylenol] 650 mg PO Q6HR PRN #0 tablet 08/28/16 [Rx] Aspirin Enteric Coated [Aspirin EC] 325 mg PO DAILY tablet. 08/28/16 [Rx] Nicotine Patch [Nicoderm] 21 mg TD DAILY #15 patch.td24 08/28/16 [Rx] Allergies/Adverse Reactions: Allergies No Known Allergies Allergy (Verified 08/25/16 16:09) Date of admission: 08/25/16 19:55 Primary care physician: Anthony Angulo MD Consults: 08/25/16 19:57 Consult to Neurology [CONS] Routine Consulting Provider: Neurology [facility] Reason for Consult: cva Call Completed: No 08/25/16 20:33 Consult to Occupational Therapy [CONS] Routine Comment: Evaluate, develop and implement POC Reason for Consult: cva Consult to Physical Therapy [CONS] Routine Comment: Evaluate, develop and implement POC Reason for Consult: cva 08/25/16 21:23 Consult to Speech Therapy [CONS] Routine Comment: Evaluate, develop and implement POC Reason for Consult: Passed dyshagia screening. CVA R/O Call Completed: No 08/27/16 10:41 Consult to Client Service Supervisor [CONS] Routine Reason for SW Consult: CVA r/o Discharging clinician: Essie Jones Anticipated date of discharge: 08/28/16 - Patient Status Disposition: Transfer LTC Condition: Good Functional capacity at discharge: independent ambulation Overall status at discharge: patient is back to baseline - Discharge Instructions Instructions: How to Stop Smoking (DC), Diabetes Mellitus Type 2 in Adults (GEN ), Ischemic Stroke (DC) Follow Up With: Anthony Angulo MD [Primary Care Provider] - - Diet and Activity Activity: resume usual activities as tolerated Diet: diabetic diet, low fat, low cholesterol, low salt diet Interval History: Mr. Chapman is a 56-year-old male with history of prior CVA, diabetes, hypertension, tobacco abuse. He was brought to the emergency room by his family due to the family was having a stroke. They reported increased confusion and speech was more slurred than normal. Patient was initially admitted for hyperosmolar non-ketotic state. His blood sugar was 647, CT scan of the head showed chronic lacunar infarcts with generalized diffuse atrophy. MRI showed lacunar infarcts with chronic microvascular changes. Patient is alert, he is a poor historian. He has chronic left-sided deficits from prior CVA, as well as facial droop. This remains unchanged, after 5 units of IV insulin in the emergency department his blood sugar dropped in the 300s and osmolality remained within normal limits. Blood pressure is well controlled in the inpatient setting. He was seen by neurology while he was here, they suggest smoking cessation, better glycemic and hypertension control her keys to avoiding further neurological incidents. His A1c is 8.8, Accu-Cheks have been around 200. He will need to follow a diabetic diet at the snf as well as continue Accu-Cheks before meals and at bedtime. He has chronic kidney disease stage III. We will continue to avoid nephrotoxins and NSAIDs and monitor labs per [facility] protocol. Physical therapy recommends inpatient rehabilitation for patient he is agreeable to this and [facility]. Patient is alert, oriented, answers questions appropriately. Physical exam is unremarkable other than what is stated above. His vital signs are stable and he is appropriate for discharge. I will send him with a prescription for nicotine patches. Patient will also continue statin, beta rosio, Plavix. Hospital course: Mr. Chapman is a 56 year old male Time spent discussing smoking cessation with patient: 3 to 10 minutes - Time Spent with Patient Total time spent providing and/or coordinating discharge services: Less than 30 minutes - Constitutional Vitals: Temp Pulse Resp BP Pulse Ox 98.3 F 53 16 139/65 98 08/28/16 14:59 08/28/16 14:59 08/28/16 14:59 08/28/16 14:59 08/28/16 14:59 General appearance: Present: cooperative, A&O X 3 (Slurred speech), pleasant, no acute distress, answers questions appropriately - Head Head exam: Present: normal inspection - Eye Eye exam: Present: EOMI, normal appearance, conjuntiva pink. Absent: nystagmus - ENT ENT exam: Present: mucous membranes moist, normal exam, normal external ear exam - Neck Neck exam general surgery: Present: normal inspection. Absent: lymphadenopathy , tenderness - Respiratory Respiratory exam: Absent: accessory muscle use, rales, respiratory distress, rhonchi, stridor, wheezes - Cardiovascular Cardiovascular exam: Present: RRR, +S1, +S2. Absent: clicks, diastolic murmur, gallop, systolic murmur - GI/Abdominal GI/Abdominal exam: Present: distended, firm, normal bowel sounds, soft. Absent : hepatomegaly, tenderness - Extremities Exam Extremities exam: Present: normal capillary refill, warm, radial pulses palpable and symetrical. Absent: pedal edema, tenderness - Neurological Exam Neurological exam: Present: alert, oriented X3, facial droop, speech deficit. Absent: no focal deficits, strengths equal and symetr throughout
--- NOTE | 2016-08-28 16:30 | Physician Discharge Referral ---
ExtendedCare Referral Info Transfer To: [facility] Provider in Charge after Transfer: PCP Institutional Level of Care: Intermediate - MR - Diagnosis (1) Hyperosmolar non-ketotic state in patient with type 2 diabetes mellitus Priority: Primary Status: Resolved (2) CVA (cerebral vascular accident) Priority: Secondary Status: Acute (3) Slurred speech Priority: Secondary Status: Acute (4) Diabetes Priority: Secondary Status: Acute (5) CKD (chronic kidney disease) stage 3, GFR 30-59 ml/min Priority: Secondary Status: Chronic Expected Duration of Placement: 30 days Prognosis: Good Aware of Diagnosis: Patient, Family Aware of Prognosis: Patient, Family - Transfer Medications Prescriptions: Nicotine Patch [Nicoderm] 21 mg TD DAILY #15 patch.td24 Home Medications: Atorvastatin Calcium 80 mg PO HS 08/25/16 [History] Cetirizine HCl [Zyrtec] 10 mg PO DAILY 08/25/16 [History] Clopidogrel [Plavix] 75 mg PO DAILY 08/25/16 [History] Glimepiride [Amaryl] 4 mg PO QAM 08/25/16 [History] Lisinopril [Zestril] 20 mg PO DAILY 08/25/16 [History] Pioglitazone HCl 30 mg PO DAILY 08/25/16 [History] raNITIdine HCl [Ranitidine HCl] 150 mg PO BID 08/25/16 [History] Acetaminophen [Tylenol] 650 mg PO Q6HR PRN #0 tablet 08/28/16 [Rx] Aspirin Enteric Coated [Aspirin EC] 325 mg PO DAILY tablet. 08/28/16 [Rx] Nicotine Patch [Nicoderm] 21 mg TD DAILY #15 patch.td24 08/28/16 [Rx] Allergies/Adverse Reactions: Allergies No Known Allergies Allergy (Verified 08/25/16 16:09) - Respiratory Orders Smoking Cessation: Smoking cessation has been advised. For more information, call the [place] Tobacco Quit Line at 1-712-BPZN-NOW. - Lab Orders Lab Orders: CBC, Other (include drug levels w/frequency) (CHEM 7 to assess renal function q 3 mos) - Ancillary Orders May use pressure relief devices daily prn, May go on KULDEEP w/family/respon republican w /meds at nurse discretion PRN, May consult with Dentist, Medical Equipment Repair Technician, Product Safety Officer PRN - Advance Directives Code Status: Full Code - Mobility Orders Ambulate - Rehabiliation Orders Rehab Potential: Good Rehab Orders: ROM Exercises, Evaluation for Physical Therapy, Evaluation for Occupational Therapy - Treatments Skin tear care topically daily PRN per policy, May check for fecal impaction rectally daily PRN, Fleet enema rectally every other day PRN cleansing purposes - Diet Orders No Added Salt (ANAI), No Concentrated Sweets, Renal CERTIFICATION: I certify that the transfer of the above named patient to an Extended Care Facility is necessary for the continuing treatment of the diagnosis listed. The above information is true and accurate reflection of patient's current condition. Confidential - Redisclosure prohibited without a patient's written consent.
== END 2016-08-28 17:46 | DRG 637 ==
LOC: 3BNU 16:02 → EMEROO 16:02 → 3BNU 19:09
PROVIDERS: ADMIT Internal Medicine; ATTEND Registered Nurse

== ENCOUNTER 2017-05-31 09:21 | Inpatient (IN) ==
--- NOTE | 2017-05-31 09:30 | Emergency Department Note ---
Disposition Clinical Impression: Altered mental status Qualifiers: Altered mental status type: unspecified Qualified Code(s): R41.82 - Altered mental status, unspecified Disposition: Admitted As Inpatient Condition: Fair Referrals: Anthony Angulo MD [Primary Care Provider] - Time of Disposition: 12:28 General Adult HPI - General Stated complaint: mutiple falls, AMS Time Seen by Provider: 05/31/17 09:24 Source: patient, EMS Mode of arrival: EMS Limitations: other (A facial) Nursing Notes Reviewed: Yes Vital Signs Reviewed: Yes - History of Present Illness HPI Narrative: 56-year-old with history of previous strokes with aphasia and left-sided weakness as a residual. Patient is on blood thinners. Patient Paolo's had a couple falls of this weekend. The patient's family states he is just not acting himself although they note no new neurologic changes other than he is not acting himself. When he arrives here he does have a low-grade fever. Patient is not eating or drinking. 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 Location: other (Patient denies any pain) Treatments Prior to Arrival: none - Related Data Home Medications Medication Instructions Recorded Confirmed Atorvastatin Calcium 80 mg PO HS 08/25/16 05/31/17 Clopidogrel [Plavix] 75 mg PO DAILY 08/25/16 05/31/17 Glimepiride [Amaryl] 4 mg PO QAM 08/25/16 05/31/17 Lisinopril [Zestril] 20 mg PO DAILY 08/25/16 05/31/17 Pioglitazone HCl 30 mg PO DAILY 08/25/16 05/31/17 raNITIdine HCl [Ranitidine HCl] 150 mg PO BID 08/25/16 05/31/17 Sertraline [Zoloft] 50 mg PO DAILY 05/31/17 05/31/17 Previous Rx's Medication Instructions Recorded Aspirin Enteric Coated [Aspirin EC] 325 mg PO DAILY tablet. 08/28/16 Allergies Allergy/AdvReac Type Severity Reaction Status Date / Time No Known Allergies Allergy Verified 08/25/16 16:09 All systems ED: reviewed and negative except as stated. Constitutional: Denies: fever, chills, weakness, weight change Eyes: Denies: eye pain, eye discharge, vision change ENT ED: Denies: ear pain, throat pain, dental pain, hearing loss, epistaxis, congestion, dysphagia Cardiovascular: Denies: chest pain, palpitations, dyspnea on exertion, edema, syncope Respiratory: Denies: cough, dyspnea, wheezes, hemoptysis, stridor Gastrointestinal: Denies: abdominal pain, nausea, vomiting, diarrhea, constipation, hematemesis, melena, hematochezia Genitourinary: Denies: urgency, dysuria, frequency, hematuria Musculoskeletal: Denies: back pain, neck pain, arthralgia, myalgia Integumentary: Denies: rash, abrasion, lesions Neurological: Reports: other (SHEENT has expressive aphasia and left-sided residual weakness from previous strokes no new neurologic changes otherwise.). Denies: headache, weakness, numbness, paresthesias, confusion, abnormal gait, vertigo Psychiatric: Denies: anxiety, depression, suicidal thoughts, homicidal thoughts , auditory hallucinations, visual hallucinations Endocrine: Denies: fatigue Hematological/Lymphatic: Denies: easy bleeding, easy bruising Allergic/Immunologic: Denies: facial swelling, urticaria Past Medical History - Past Medical History Medical history: Reports: coronary artery disease, CVA, diabetes, hyperlipidemia , hypertension, other Surgical history: Reports: no surgical history Psychiatric history: Reports: no psych history - Social History Smoking Status: Former smoker Smokeless Tobacco Status: No Alcohol use: Reports: none Drug use: Reports: none Physical Exam - General Limitations: other General appearance: alert, in no apparent distress - Head Head exam: atraumatic, normocephalic, normal inspection - Eye Eye exam: Present: normal appearance, PERRL, EOMI - Expanded Eye Exam Pupils: Left: reactive - ENT ENT exam: normal exam, normal oropharynx, mucous membranes moist - Expanded ENT Exam External ear exam: Present: normal external inspection Mouth exam: Present: normal external inspection Teeth exam: Present: normal inspection Throat exam: Present: normal inspection - Neck Neck exam: Present: normal inspection, full ROM, trachea midline - Chest Chest inspection: Present: normal inspection, symmetric chest wall rise - Respiratory Respiratory exam: Present: normal lung sounds bilaterally - Cardiovascular Cardiovascular exam: Present: regular rate, normal rhythm, normal heart sounds - Abdominal Exam Abdominal exam: Present: soft, Non-Tender. Absent: tenderness, distention, guarding, rebound, rigidity - Extremities Exam Extremities exam: Present: normal inspection, full ROM. Absent: tenderness, pedal edema - Expanded Upper Extremity Exam Shoulder exam: Present: normal inspection, full ROM Arm exam: Present: normal inspection, full ROM Elbow exam: Present: normal inspection, full ROM Forearm/Wrist exam: Present: normal inspection, full ROM Hand exam: Present: normal inspection, full ROM Vascular exam: Normal: capillary refill, radial pulse - Expanded Lower Extremity Exam Hip/Pelvis exam: Present: normal inspection, full ROM Upper leg exam: Present: normal inspection, full ROM Knee exam: Present: normal inspection, full ROM Lower leg exam: Present: normal inspection, full ROM Ankle exam: Present: normal inspection, full ROM Foot/toe exam: Present: normal inspection, full ROM Neurovascular/Tendon exam: Absent: motor deficit, sensory deficit, tendon deficit Gait: not tested/not observed - Back Exam Back exam: Present: normal inspection, full ROM. Absent: tenderness - Neurological Exam Neurological exam: Present: alert, motor sensory deficit - Expanded Neurological Exam Patient oriented to: Present: person, place, time Coma Scale Eye Opening: Spontaneous Coma Scale Motor Response: Obeys Commands Coma Scale Verbal Response: Oriented Coma Scale Total: 15 - Psychiatric Psychiatric exam: Present: normal affect, normal mood - Skin Skin exam: Present: warm, dry, intact, normal color Course - Reevaluation(s) Reevaluation #1: 56-year-old comes detention with some confusion and generalized weakness. The family states his neurologic status concerning weakness in his extremities is at its baseline. He is normally a phasic. Does have evidence of a UTI with too numerous to count white cells and a white count 35 and elevated lactate. Time: 12:27 - Consultations Consultation #1: Discussed with Dr. Steiner, it. Time: 12:27 Vital Signs Temperature 100.2 F H 05/31/17 09:24 Pulse Rate 110 05/31/17 09:24 Respiratory Rate 20 05/31/17 09:24 Blood Pressure 122/66 05/31/17 09:24 O2 Sat by Pulse Oximetry 94 05/31/17 09:24 Temperature 100.2 F H 05/31/17 09:24 Pulse Rate 110 05/31/17 09:24 Respiratory Rate 20 05/31/17 09:24 Blood Pressure 122/66 05/31/17 09:24 O2 Sat by Pulse Oximetry 96 05/31/17 09:32 Oxygen Delivery Oxygen Delivery Room Air Medical Decision Making - Lab Data Result diagrams: 05/31/17 09:45 05/31/17 09:45 Lab Results 05/31/1718 18 Range/Units 09:45 09:45 09:45 WBC 35.7 H* (4.3-11.1) K/mcL RBC 4.40 (4.19-5.50) M/mcL Hgb 12.6 L (12.9-16.9) g/dL Hct 39.6 (37.5-50.1) % MCV 90.0 (83.0-100.0) fL MCH 28.6 (28.0-33.3) pg MCHC 31.8 (31.6-35.5) g/dL RDW 13.8 (11.5-14.5) % Plt Count 338 (140-400) K/mcL MPV 9.4 (9.4-12.4) fL Immature Gran % 4.4 H (0-4) % Seg Neutrophils % 87.8 % Lymphocytes % 3.2 % Monocytes % 4.3 % Eosinophils % 0.0 % Basophils % 0.3 % Neutrophils # 31.3 H (1.6-8.9) K/mcL Lymphocytes # 1.1 (0.6-4.6) K/mcL Monocytes # 1.5 H (0.0-1.3) K/mcL Eosinophils # 0.0 (0.0-0.6) K/mcL Basophils # 0.1 (0.0-0.2) K/mcL Platelet Estimate Normal (Normal) PT 14.2 H (9.4-12.1) Seconds INR 1.3 APTT 31.6 (26.0-36.0) Seconds Sodium 135 L (136-145) mEq/L Potassium 3.7 (3.5-5.1) mEq/L Chloride 96 L (98-107) mEq/L Carbon Dioxide 26 (23-29) mEq/L BUN 29 H (6-20) mg/dL Creatinine 1.22 (0.70-1.30) mg/dL Est GFR ( Amer) > 60 (> 60) Est GFR (Non-Af Amer) > 60 (> 60) BUN/Creatinine Ratio 24 (6-26) Glucose 304 H (70-105) mg/dL Calculated Osmolality 297 (280-300) Lactic Acid (0.5-2.2) mmol/L Calcium 9.6 (8.6-10.3) mg/dL Troponin I 0.03 (< 0.04) ng/mL B-Natriuretic Peptide (Less than 100) pg/mL Urine Color (Yellow) Urine Clarity (Clear) Urine pH (5.0-8.0) pH Units Ur Specific [place] (1.010-1.025) Urine Protein (Neg-Trace) mg/dL Urine Glucose (UA) (Normal) mg/dL Urine Ketones (Negative) mg/dL Urine Blood (Negative) Urine Nitrite (Negative) Urine Bilirubin (Negative) Urine Urobilinogen (Normal) mg/dL Ur Leukocyte Esterase (Negative) Urine Microscopic RBC (0-3) per hpf Urine Microscopic WBC (0-3) per hpf Ur Squamous Epith Cells (None-Few) per lpf Urine Bacteria (None-Few) per hpf Hyaline Casts (None-Few) per lpf Ur Culture Indicated? (NO) 05/31/17 05/31/17 05/31/17 Range/Units 09:45 09:45 11:21 WBC (4.3-11.1) K/mcL RBC (4.19-5.50) M/mcL Hgb (12.9-16.9) g/dL Hct (37.5-50.1) % MCV (83.0-100.0) fL MCH (28.0-33.3) pg MCHC (31.6-35.5) g/dL RDW (11.5-14.5) % Plt Count (140-400) K/mcL MPV (9.4-12.4) fL Immature Gran % (0-4) % Seg Neutrophils % % Lymphocytes % % Monocytes % % Eosinophils % % Basophils % % Neutrophils # (1.6-8.9) K/mcL Lymphocytes # (0.6-4.6) K/mcL Monocytes # (0.0-1.3) K/mcL Eosinophils # (0.0-0.6) K/mcL Basophils # (0.0-0.2) K/mcL Platelet Estimate (Normal) PT (9.4-12.1) Seconds INR APTT (26.0-36.0) Seconds Sodium (136-145) mEq/L Potassium (3.5-5.1) mEq/L Chloride (98-107) mEq/L Carbon Dioxide (23-29) mEq/L BUN (6-20) mg/dL Creatinine (0.70-1.30) mg/dL Est GFR ( Amer) (> 60) Est GFR (Non-Af Amer) (> 60) BUN/Creatinine Ratio (6-26) Glucose (70-105) mg/dL Calculated Osmolality (280-300) Lactic Acid 2.9 H (0.5-2.2) mmol/L Calcium (8.6-10.3) mg/dL Troponin I (< 0.04) ng/mL B-Natriuretic Peptide 69 (Less than 100) pg/mL Urine Color Dark Yellow (Yellow) Urine Clarity Turbid A (Clear) Urine pH 8.0 (5.0-8.0) pH Units Ur Specific [place] 1.018 (1.010-1.025) Urine Protein 100 H (Neg-Trace) mg/dL Urine Glucose (UA) Normal (Normal) mg/dL Urine Ketones Negative (Negative) mg/dL Urine Blood Small H (Negative) Urine Nitrite Negative (Negative) Urine Bilirubin Negative (Negative) Urine Urobilinogen Normal (Normal) mg/dL Ur Leukocyte Esterase Moderate H (Negative) Urine Microscopic RBC 5-15 H (0-3) per hpf Urine Microscopic WBC TNTC H (0-3) per hpf Ur Squamous Epith Cells Few (None-Few) per lpf Urine Bacteria Many H (None-Few) per hpf Hyaline Casts None Seen (None-Few) per lpf Ur Culture Indicated? YES A (NO) - EKG Data EKG #1 EKG attestation: Yes I reviewed and interpreted this EKG. EKG shows normal: sinus rhythm, axis Rate: tachycardia (105) Rhythm: NSR [place]/QRS: normal Interpretation: no acute changes
[2017-05-31 10:05] LABS: Basophils % 0.3 %; Mean Corpuscular HGB Conc 31.8 g/dL (31.6-35.5); Mean Platelet Volume 9.4 fL (9.4-12.4)
[2017-05-31 10:06] LABS: Basophils # 0.1 K/mcL (0.0-0.2); Hematocrit 39.6 % (37.5-50.1); Hemoglobin 12.6 g/dL (12.9-16.9); Immature Granulocytes % 4.4 % (0-4); Lymphocytes % 3.2 %; Mean Corpuscular Hemoglobin 28.6 pg (28.0-33.3); Monocytes # 1.5 K/mcL (0.0-1.3); Monocytes % 4.3 %; Neutrophils # 31.3 K/mcL (1.6-8.9); Platelet Count 338 K/mcL (140-400); Red Cell Distribution Width 13.8 % (11.5-14.5); Segmented Neutrophils % 87.8 %
[2017-05-31 10:09] LABS: Lymphocytes # 1.1 K/mcL (0.6-4.6)
[2017-05-31 10:11] LABS: INR 1.3; Prothrombin Time 14.2 Seconds (9.4-12.1)
[2017-05-31 10:14] LABS: Activated Partial Thrombo Time 31.6 Seconds (26.0-36.0)
[2017-05-31 10:15] LABS: Platelet Estimate Normal (Normal)
[2017-05-31 10:21] LABS: BUN/Creatinine Ratio 24 (6-26); Blood Urea Nitrogen 29 mg/dL (6-20); Calcium 9.6 mg/dL (8.6-10.3); Carbon Dioxide 26 mEq/L (23-29); Chloride 96 mEq/L (98-107); Glucose 304 mg/dL (70-105); Osmolality,Calculated 297 (280-300); Potassium 3.7 mEq/L (3.5-5.1); Sodium 135 mEq/L (136-145); eGFR For African Americans > 60 (> 60); eGFR For Non-African Americans > 60 (> 60)
[2017-05-31] MEDS ORDERED: Piperacillin/Tazobactam 3.375 GM in 0.9 % Sodium Chloride Mini Bag 100 ML IVPB ONE (10:43)
[2017-05-31 11:22] LABS: Troponin I 0.03 ng/mL (< 0.04)
[2017-05-31] MEDS ORDERED: Piperacillin/Tazobactam 3.375 GM in Water for inj. (sterile) 20 ML 20 ML IVP ONE (11:30)
[2017-05-31 11:32] LABS: Bilirubin,Urine Negative (Negative); Blood,Urine Small (Negative); Clarity,Urine Turbid (Clear); Color,Urine Dark Yellow (Yellow); Glucose,Urine (UA) Normal (Normal); Ketones,Urine Negative (Negative); Leukocyte Esterase,Urine Moderate (Negative); Nitrite,Urine Negative (Negative); Protein,Urine 100 mg/dL (Neg-Trace); Specific Gravity,Urine 1.018 (1.010-1.025); Urobilinogen,Urine Normal (Normal)
[2017-05-31] MEDS ORDERED: 0.9 % Sodium Chloride 1,000 ML IVC ONE (11:34)
[2017-05-31 11:36] LABS: Bacteria,Urine Many per hpf (None-Few); Hyaline Casts,Urine None Seen per lpf (None-Few); Squamous Epithelial Cell,Urine Few per lpf (None-Few); WBC,Urine TNTC per hpf (0-3)
--- NOTE | 2017-05-31 13:36 | Internal Med History&Physical ---
Date of Encounter: 05/31/17 Time of Encounter: 13:32 Assessment and Plan (1) Sepsis Current visit: Yes Status: Acute Patient appears septic most likely from urinary source patient had lactic acidosis at fever very high white count 35,000 and tachycardia was started on IV Zosyn send blood culture and urine culture Qualifiers: Sepsis type: sepsis due to unspecified organism Qualified Code(s): A41.9 - Sepsis, unspecified organism (2) Altered mental status Current visit: Yes Status: Acute Mental status changes most likely due to sepsis and urinary tract infection Qualifiers: Altered mental status type: unspecified Qualified Code(s): R41.82 - Altered mental status, unspecified (3) UTI (urinary tract infection) Current visit: Yes Status: Acute UA consistent with the UTI was sent for urine culture Qualifiers: Urinary tract infection type: acute cystitis Hematuria presence: without hematuria Qualified Code(s): N30.00 - Acute cystitis without hematuria (4) CVA (cerebral vascular accident) Current visit: No Status: Chronic Prior CVA with left-sided weakness Qualifiers: CVA mechanism: unspecified Qualified Code(s): I63.9 - Cerebral infarction, unspecified (5) Diabetes Current visit: No Status: Chronic Chronic we will resume home medication and place on sliding scale Qualifiers: Diabetes mellitus type: type 2 Diabetes mellitus termination 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 insulin use: unspecified senior living insulin use status Diabetes mellitus complication status : with hyperglycemia Qualified Code(s): E11.65 - Type 2 diabetes mellitus with hyperglycemia (6) Hypertension Current visit: No Status: Chronic Chronic and well controlled Qualifiers: Hypertension type: essential hypertension Qualified Code(s): I10 - Essential (primary) hypertension (7) Tobacco abuse Current visit: No Status: Acute Chronic (8) CKD (chronic kidney disease) stage 3, GFR 30-59 ml/min Current visit: No Status: Chronic Creatinine is at baseline Internal Medicine - H&P: HPI Chief complaint: mental status changes Admitted From: Emergency Dept Plans for Post Hospital Care: Home History of present illness: Mr. Chapman is a 56 year old male Patient with history of diabetes, CVA with left-sided weakness, smoking history , CK-MB, CAD and high cholesterol. Patient was sent from snf due to increased confusion poor by mouth intake and generalized weakness on arrival here patient was febrile evaluation consistent with a UTI white count 35,000 with lactic acidosis ,tachycardia suggestive of sepsis patient does not look toxic. Be admitted for treatment of possible sepsis from UTI. Past Med Surg Social Fam HX - Past Medical History Medical history: coronary artery disease, CVA, diabetes, hyperlipidemia, hypertension, other Psychiatric history: no psych history - Past Surgical History Surgical History: no surgical history - Social History Smoking Status: Former smoker Smokeless Tobacco Status: No Alcohol use: none Drug use: none Internal Medicine - H&P: Meds Atorvastatin Calcium 80 mg PO HS 08/25/16 [History] Clopidogrel [Plavix] 75 mg PO DAILY 08/25/16 [History] Glimepiride [Amaryl] 4 mg PO QAM 08/25/16 [History] Lisinopril [Zestril] 20 mg PO DAILY 08/25/16 [History] Pioglitazone HCl 30 mg PO DAILY 08/25/16 [History] raNITIdine HCl [Ranitidine HCl] 150 mg PO BID 08/25/16 [History] Aspirin Enteric Coated [Aspirin EC] 325 mg PO DAILY tablet. 08/28/16 [Rx] Sertraline [Zoloft] 50 mg PO DAILY 05/31/17 [History] 3 Allergy/AdvReac Type Severity Reaction Status Date / Time No Known Allergies Allergy Verified 08/25/16 16:09 All Systems PM: A 10-system review of systems was performed and is negative for pertinent findings except as documented above in the HPI. - Constitutional Constitutional: fatigue, fever(s), weakness - EENT Eyes: no change in vision, no discharge, no pain, no photophobia Ears: no ear discharge, no ear pain, no tinnitus Nose, mouth and throat: no dysphagia, no nasal discharge, no neck pain, no sore throat - Cardiovascular Cardiovascular ROS IM: no chest pain, no diaphoresis, no dyspnea, no lightheadedness, no palpitations, no syncope - Respiratory Respiratory: no cough, no dyspnea, no wheezing, no excessive phlegm production - Gastrointestinal Gastrointestinal: no abdominal pain, no diarrhea, no hematemesis, no hematochezia, no melena, no nausea, no vomiting - Musculoskeletal Musculoskeletal ROS IM: no numbness, no tingling - Constitutional Vitals: Temp Pulse Resp BP Pulse Ox 100.6 F H 99 16 110/67 93 05/31/17 13:15 05/31/17 13:15 05/31/17 13:15 05/31/17 13:15 05/31/17 13:15 General appearance: Present: mild distress - Eye Eye exam: Present: PERRL, conjuntiva pink, sclera anicteric Pupils: Present: PERRL - Neck Neck exam general surgery: Present: supple, trachea midline. Absent: lymphadenopathy - Respiratory Respiratory exam: Present: CTAB. Absent: accessory muscle use, rales, rhonchi, wheezes - Cardiovascular Cardiovascular exam: Present: RRR, +S1, +S2, tachycardia. Absent: diastolic murmur, gallop, rubs, systolic murmur - GI/Abdominal GI/Abdominal exam: Present: normal bowel sounds, soft, no peritoneal signs. Absent: distended, tenderness Internal Med - H&P Results - Labs CBC & Chem 7: 05/31/17 09:45 05/31/17 09:45
[2017-05-31] MEDS ORDERED: Naloxone 0.4 MG/ML INJ IVP PRN (13:42)
[2017-05-31] MEDS ORDERED: Mag Hydrox/Al Hydrox/Simeth 30 ML UDC PO PRN (13:42)
[2017-05-31] MEDS ORDERED: Ondansetron 4 MG/2 ML VIAL IVP PRN (13:42)
[2017-05-31] MEDS ORDERED: Acetaminophen 325 MG TABLET PO PRN (13:42)
[2017-05-31] MEDS ORDERED: Dextrose Gel 15 GM/37.5 ML TUBE PO PRN ×2 (13:48)
[2017-05-31] MEDS ORDERED: *HR* Dextrose 50 % in Water (Syg) 50 ML SYRINGE IVP PRN (13:48)
[2017-05-31] MEDS ORDERED: D5% in Water 1,000 ML IVC PRN (13:48)
[2017-05-31] MEDS: 0.9 % Sodium Chloride 1,000 ML IVC SCH (17:37)
[2017-05-31] MEDS: Insulin LISPRO 300 UNITS/3 ML VIAL SQ SCH (17:39)
[2017-05-31] MEDS ORDERED: Acetaminophen IV 500 MG/50 ML INFUS..BTL IVPB PRN (19:50)
--- NOTE | 2017-05-31 20:42 | Electrocardiograph Report ---
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
[2017-05-31] MEDS: Piperacillin/Tazobactam 3.375 GM in 0.9 % Sodium Chloride Mini Bag 100 ML IVPB SCH (21:23)
[2017-05-31] MEDS: Famotidine 20 MG TABLET PO SCH (21:30)
[2017-06-01 04:59] LABS: Mean Platelet Volume 9.7 fL (9.4-12.4)
[2017-06-01 05:00] LABS: Hematocrit 33.6 % (37.5-50.1); Hemoglobin 10.8 g/dL (12.9-16.9); Mean Corpuscular HGB Conc 32.1 g/dL (31.6-35.5); Mean Corpuscular Hemoglobin 28.8 pg (28.0-33.3); Mean Corpuscular Volume 89.6 fL (83.0-100.0); Platelet Count 313 K/mcL (140-400); Red Blood Count 3.75 M/mcL (4.19-5.50); Red Cell Distribution Width 13.9 % (11.5-14.5)
[2017-06-01 05:15] LABS: Alanine Aminotransferase 16 Units/L (7-52); Albumin 3.2 g/dL (3.5-5.7); Albumin/Globulin Ratio 0.9 (1.1-2.2); Alkaline Phosphatase 83 Units/L (34-104); Aspartate Amino Transferase 11 Units/L (13-39); BUN/Creatinine Ratio 28 (6-26); Bilirubin,Total 0.7 mg/dL (0.3-1.0); Blood Urea Nitrogen 29 mg/dL (6-20); Calcium 8.8 mg/dL (8.6-10.3); Carbon Dioxide 26 mEq/L (23-29); Chloride 105 mEq/L (98-107); Chol/HDL Ratio 3.2 (0-4.9); Cholesterol 111 mg/dL (< 200); Globulin 3.6 g/dL (2.4-3.5); Glucose 103 mg/dL (70-105); HDL Cholesterol 35 mg/dL (40-59); LDL Cholesterol,Calculated 61 mg/dL (0-99); Magnesium 1.9 mg/dL (1.6-2.6); Osmolality,Calculated 294 (280-300); Potassium 3.3 mEq/L (3.5-5.1); Sodium 139 mEq/L (136-145); Total Protein 6.8 g/dL (6.4-8.9); Triglycerides 73 mg/dL (< 150); eGFR For African Americans > 60 (> 60); eGFR For Non-African Americans > 60 (> 60)
[2017-06-01] MEDS: *HR* Enoxaparin 40 MG/0.4 ML SYRINGE SQ SCH (05:18)
[2017-06-01] MEDS: Piperacillin/Tazobactam 3.375 GM in 0.9 % Sodium Chloride Mini Bag 100 ML IVPB SCH ×3 (05:18→21:24)
[2017-06-01] MEDS: 0.9 % Sodium Chloride 1,000 ML IVC SCH (05:19)
[2017-06-01] MEDS: Insulin LISPRO 300 UNITS/3 ML VIAL SQ SCH ×3 (08:13→16:50)
[2017-06-01] MEDS: Famotidine 20 MG TABLET PO SCH ×2 (10:31→21:23)
[2017-06-01] MEDS: Lisinopril 20 MG TABLET PO SCH (10:32)
[2017-06-01] MEDS: *HR* Glimepiride 4 MG TABLET PO SCH (10:32)
[2017-06-01] MEDS: *HR* Pioglitazone 30 MG TABLET PO SCH (10:32)
--- NOTE | 2017-06-01 10:37 | Internal Med Progress Note ---
Date of Encounter: 06/01/17 Time of Encounter: 10:37 - Assessment and plan (1) Sepsis Current Visit: Yes Status: Acute Assessment and plan: Sepsis most likely from urinary source patient does have a UTI he has not had any fever since yesterday white count has decreased-down to 29.7 heart rate 90- 100 we will continue to monitor Continue With Zosyn pending culture results Qualifiers: Sepsis type: sepsis due to unspecified organism Qualified Code(s): A41.9 - Sepsis, unspecified organism (2) Altered mental status Current Visit: Yes Status: Acute Assessment and plan: 1 daily since patient is back to baseline most likely related to infectious process-we will continue to monitor Qualifiers: Altered mental status type: unspecified Qualified Code(s): R41.82 - Altered mental status, unspecified (3) UTI (urinary tract infection) Current Visit: Yes Status: Acute Assessment and plan: Urinalysis indicative of UTI continue with Zosyn pending culture sensitivity Qualifiers: Urinary tract infection type: acute cystitis Hematuria presence: without hematuria Qualified Code(s): N30.00 - Acute cystitis without hematuria (4) CKD (chronic kidney disease) stage 3, GFR 30-59 ml/min Current Visit: No Status: Chronic Assessment and plan: It appears patient is around baseline creatinine today is 1.02 we will continue to monitor Avoid nephrotoxins (5) CVA (cerebral vascular accident) Current Visit: No Status: Chronic Assessment and plan: Prior CVA with left-sided weakness as well as has some aphasia. Patient's family states he is at baseline. We will consult PT and OT for strengthening Continue pureed diet and honey thickened liquids. 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: unspecified sheet turner insulin use status Diabetes mellitus complication status : with hyperglycemia Qualified Code(s): E11.65 - Type 2 diabetes mellitus with hyperglycemia (7) Hypertension Current Visit: No Status: Chronic Assessment and plan: Presently controlled continue with home medications Qualifiers: Hypertension type: essential hypertension Qualified Code(s): I10 - Essential (primary) hypertension (8) Hypokalemia Current Visit: Yes Status: Acute Assessment and plan: Today potassium is 3.3 replace and recheck - Time Spent With Patient less than 15 minutes - Subjective Interval history: Patient has history of prior CVA with aphasia-family at bedside states the patient is at baseline however he is having some difficulty swallowing. Family states that he is on a pureed diet at the [facility]. We will have patient evaluated by speech - Constitutional Vitals: Temp Pulse Resp BP Pulse Ox 99.6 F 97 16 119/64 91 06/01/17 07:13 06/01/17 07:13 06/01/17 07:13 06/01/17 07:13 06/01/17 07:13 General appearance: Present: mild distress - Head Head exam: Present: atraumatic, normocephalic - Eye Eye exam: Present: PERRL, conjuntiva pink, sclera anicteric Pupils: Present: PERRL - Neck Neck exam general surgery: Present: supple, trachea midline. Absent: lymphadenopathy - Respiratory Respiratory exam: Present: CTAB. Absent: accessory muscle use, rales, rhonchi, wheezes - Cardiovascular Cardiovascular exam: Present: RRR, +S1, +S2. Absent: diastolic murmur, gallop, rubs, systolic murmur - GI/Abdominal GI/Abdominal exam: Present: normal bowel sounds, soft, no peritoneal signs. Absent: distended, tenderness - Extremities Exam Extremities exam: Present: warm, radial pulses palpable and symmetrical. Absent : calf tenderness, cyanotic, pedal edema - Neurological Exam Neurological exam: Present: CN II-XII intact, oriented X3, no focal deficits. Absent: pronater drift, facial droop, speech deficit - Skin Skin exam: Present: dry, intact Internal Medicine: Result - Labs CBC & Chem 7: 06/01/17 03:52 06/01/17 03:52 Labs: Short CBC 06/01/17 Range/Units 03:52 WBC 29.7 H (4.3-11.1) K/mcL Hgb 10.8 L D (12.9-16.9) g/dL Hct 33.6 L (37.5-50.1) % Plt Count 313 (140-400) K/mcL BMP 06/01/17 03:52 Sodium 139 Potassium 3.3 L Chloride 105 Carbon Dioxide 26 BUN 29 H Creatinine 1.03 Glucose 103 Calcium 8.8 Liver Function 06/01/17 Range/Units 03:52 Total Bilirubin 0.7 (0.3-1.0) mg/dL AST 11 L (13-39) Units/L ALT 16 (7-52) Units/L Alkaline Phosphatase 83 (34-104) Units/L Albumin 3.2 L (3.5-5.7) g/dL - ABG Interpretation ABG results: PT/INR, D-dimer PT 14.2 Seconds (9.4-12.1) H 05/31/17 09:45 Consult Discharge Plan - Plan Referrals: Anthony Angulo MD [Primary Care Provider] -
[2017-06-01] MEDS ORDERED: Potassium Chloride 20 MEQ, Lidocaine 1% 2 ML in D5% in Water 250 ML IVPB ONE (10:53)
[2017-06-02 04:46] LABS: Basophils # 0.1 K/mcL (0.0-0.2); Basophils % 0.4 %; Eosinophils # 0.1 K/mcL (0.0-0.6); Eosinophils % 0.7 %; Hematocrit 33.9 % (37.5-50.1); Immature Granulocytes % 0.8 % (0-4); Lymphocytes # 1.5 K/mcL (0.6-4.6); Lymphocytes % 9.1 %; Mean Corpuscular HGB Conc 32.4 g/dL (31.6-35.5); Mean Corpuscular Hemoglobin 29.1 pg (28.0-33.3); Mean Corpuscular Volume 89.7 fL (83.0-100.0); Mean Platelet Volume 10.1 fL (9.4-12.4); Monocytes # 0.9 K/mcL (0.0-1.3); Monocytes % 5.6 %; Platelet Count 335 K/mcL (140-400); Red Blood Count 3.78 M/mcL (4.19-5.50); Red Cell Distribution Width 13.9 % (11.5-14.5); Segmented Neutrophils % 83.4 %
[2017-06-02 04:54] LABS: BUN/Creatinine Ratio 27 (6-26); Blood Urea Nitrogen 23 mg/dL (6-20); Carbon Dioxide 27 mEq/L (23-29); Chloride 107 mEq/L (98-107); Glucose 84 mg/dL (70-105); Osmolality,Calculated 297 (280-300); Potassium 3.4 mEq/L (3.5-5.1); Sodium 142 mEq/L (136-145); eGFR For African Americans > 60 (> 60); eGFR For Non-African Americans > 60 (> 60)
[2017-06-02 05:48] LABS: Platelet Estimate Normal (Normal)
[2017-06-02] MEDS: *HR* Enoxaparin 40 MG/0.4 ML SYRINGE SQ SCH (06:09)
[2017-06-02] MEDS: Piperacillin/Tazobactam 3.375 GM in 0.9 % Sodium Chloride Mini Bag 100 ML IVPB SCH ×2 (06:09→11:16)
[2017-06-02] MEDS: Insulin LISPRO 300 UNITS/3 ML VIAL SQ SCH ×3 (07:53→17:08)
[2017-06-02] MEDS: *HR* Pioglitazone 30 MG TABLET PO SCH (09:15)
[2017-06-02] MEDS: Lisinopril 20 MG TABLET PO SCH (09:15)
[2017-06-02] MEDS: Famotidine 20 MG TABLET PO SCH ×2 (09:15→21:17)
[2017-06-02] MEDS: *HR* Glimepiride 4 MG TABLET PO SCH (09:16)
--- NOTE | 2017-06-02 11:02 | Internal Med Progress Note ---
Date of Encounter: 06/02/17 Time of Encounter: 11:02 - Assessment and plan (1) Sepsis Current Visit: Yes Status: Acute Assessment and plan: 1 vital signs have returned to normal he is afebrile white count trending down, we will de-escalate antibiotics anticipate discharge back to the [facility] tomorrow Qualifiers: Sepsis type: sepsis due to unspecified organism Qualified Code(s): A41.9 - Sepsis, unspecified organism (2) Altered mental status Current Visit: Yes Status: Acute Assessment and plan: 11 according the family patient has returned back to baseline he does have history of CVA with left-sided weakness. Altered been stable most likely related to infectious process Qualifiers: Altered mental status type: unspecified Qualified Code(s): R41.82 - Altered mental status, unspecified (3) UTI (urinary tract infection) Current Visit: Yes Status: Acute Assessment and plan: 1 urinalysis indicative of UTI urine culture grew Proteus mirabilis-we will change Zosyn to Rocephin based upon sensitivity. Qualifiers: Urinary tract infection type: acute cystitis Hematuria presence: without hematuria Qualified Code(s): N30.00 - Acute cystitis without hematuria (4) CVA (cerebral vascular accident) Current Visit: No Status: Chronic Assessment and plan: Patient has history of CVA with left-sided weakness he is currently residing at [facility] receiving rehabilitation. He is evaluated by PT OT suggest continued rehabilitation. He was also evaluated by speech therapy who recommends pureed diet with honey thickened liquids. 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 insulin use: unspecified prison insulin use status Diabetes mellitus complication status : with hyperglycemia Qualified Code(s): E11.65 - Type 2 diabetes mellitus with hyperglycemia (6) Hypertension Current Visit: No Status: Chronic Assessment and plan: Presently controlled continue lisinopril Qualifiers: Hypertension type: essential hypertension Qualified Code(s): I10 - Essential (primary) hypertension (7) Hypokalemia Current Visit: Yes Status: Acute Assessment and plan: Potassium 3.4 today we will give replacement and recheck - Time Spent With Patient less than 15 minutes - Subjective Interval history: Family at bedside feeding patient expressed the patient is improving. PT OT did evaluate patient recommending continued physical therapy at [facility]. Patient is hemodynamically stable at this time - Constitutional Vitals: Temp Pulse Resp BP Pulse Ox 98.5 F 79 18 131/71 94 06/02/17 06:52 06/02/17 06:52 06/02/17 06:52 06/02/17 06:52 06/02/17 06:52 General appearance: Present: mild distress - Head Head exam: Present: atraumatic, normocephalic - Eye Eye exam: Present: PERRL, conjuntiva pink, sclera anicteric Pupils: Present: PERRL - Neck Neck exam general surgery: Present: supple, trachea midline. Absent: lymphadenopathy - Respiratory Respiratory exam: Present: CTAB. Absent: accessory muscle use, rales, rhonchi, wheezes - Cardiovascular Cardiovascular exam: Present: RRR, +S1, +S2. Absent: diastolic murmur, gallop, rubs, systolic murmur - GI/Abdominal GI/Abdominal exam: Present: normal bowel sounds, soft, no peritoneal signs. Absent: distended, tenderness - Extremities Exam Extremities exam: Present: warm, radial pulses palpable and symmetrical. Absent : calf tenderness, cyanotic, pedal edema - Neurological Exam Neurological exam: Present: CN II-XII intact, oriented X3, no focal deficits. Absent: pronater drift, facial droop, speech deficit - Skin Skin exam: Present: dry, intact Internal Medicine: Result - Labs CBC & Chem 7: 06/02/17 03:18 06/02/17 03:18 Labs: Short CBC 06/02/17 Range/Units 03:18 WBC 16.8 H (4.3-11.1) K/mcL Hgb 11.0 L (12.9-16.9) g/dL Hct 33.9 L (37.5-50.1) % Plt Count 335 (140-400) K/mcL Neutrophils # 14.0 H (1.6-8.9) K/mcL BMP 06/02/17 03:18 Sodium 142 Potassium 3.4 L Chloride 107 Carbon Dioxide 27 BUN 23 H Creatinine 0.84 Glucose 84 Calcium 9.0 - ABG Interpretation ABG results: PT/INR, D-dimer PT 14.2 Seconds (9.4-12.1) H 05/31/17 09:45 Consult Discharge Plan - Plan Referrals: Anthony Angulo MD [Primary Care Provider] -
[2017-06-02] MEDS ORDERED: Potassium Chloride 20 MEQ, Lidocaine 1% 2 ML in D5% in Water 250 ML IVPB ONE (14:30)
[2017-06-02] MEDS ORDERED: Insulin LISPRO 300 UNITS/3 ML VIAL SQ SCH (21:00)
[2017-06-03] MEDS: *HR* Enoxaparin 40 MG/0.4 ML SYRINGE SQ SCH (05:20)
[2017-06-03] MEDS: Insulin LISPRO 300 UNITS/3 ML VIAL SQ SCH ×3 (08:31→17:11)
[2017-06-03] MEDS: Famotidine 20 MG TABLET PO SCH (08:38)
[2017-06-03] MEDS: Lisinopril 20 MG TABLET PO SCH (08:39)
[2017-06-03] MEDS ORDERED: cefTRIAXone 1,000 MG in Water for inj. (sterile) 20 ML 10 ML IVP SCH (09:00)
[2017-06-03 09:09] LABS: Basophils # 0.1 K/mcL (0.0-0.2); Basophils % 0.6 %; Eosinophils # 0.1 K/mcL (0.0-0.6); Eosinophils % 1.4 %; Hematocrit 35.2 % (37.5-50.1); Hemoglobin 11.2 g/dL (12.9-16.9); Immature Granulocytes % 0.6 % (0-4); Lymphocytes # 1.4 K/mcL (0.6-4.6); Mean Corpuscular HGB Conc 31.8 g/dL (31.6-35.5); Mean Corpuscular Hemoglobin 28.5 pg (28.0-33.3); Mean Corpuscular Volume 89.6 fL (83.0-100.0); Mean Platelet Volume 9.2 fL (9.4-12.4); Monocytes # 0.8 K/mcL (0.0-1.3); Monocytes % 8.7 %; Neutrophils # 7.1 K/mcL (1.6-8.9); Platelet Count 330 K/mcL (140-400); Red Blood Count 3.93 M/mcL (4.19-5.50); Red Cell Distribution Width 13.8 % (11.5-14.5); Segmented Neutrophils % 73.7 %
[2017-06-03 09:56] LABS: BUN/Creatinine Ratio 24 (6-26); Blood Urea Nitrogen 18 mg/dL (6-20); Carbon Dioxide 27 mEq/L (23-29); Chloride 108 mEq/L (98-107); Glucose 117 mg/dL (70-105); Osmolality,Calculated 299 (280-300); Potassium 3.7 mEq/L (3.5-5.1); Sodium 143 mEq/L (136-145); eGFR For African Americans > 60 (> 60); eGFR For Non-African Americans > 60 (> 60)
--- NOTE | 2017-06-03 11:18 | Discharge Summary ---
Date of Encounter: 06/03/17 Time of Encounter: 11:09 - Discharge Diagnosis (1) UTI (urinary tract infection) Priority: Primary Status: Acute Comments: 1 urine culture did reveal Proteus mirabilis sensitive to Rocephin which patient received we will initiate on Omnicef as outpatient which he will continue for the next 11 days for complete 14 day regime Follow-up with PCP as outpatient Qualifiers: Urinary tract infection type: acute cystitis Hematuria presence: without hematuria Qualified Code(s): N30.00 - Acute cystitis without hematuria (2) Sepsis Priority: Primary Status: Resolved Comments: This has resolved patient white count has returned to normal he is no longer tachycardic afebrile mental status back to baseline Qualifiers: Sepsis type: sepsis due to unspecified organism Qualified Code(s): A41.9 - Sepsis, unspecified organism (3) Altered mental status Priority: Primary Status: Resolved Comments: This is resolved patient's back to baseline Qualifiers: Altered mental status type: unspecified Qualified Code(s): R41.82 - Altered mental status, unspecified (4) CVA (cerebral vascular accident) Priority: Secondary Status: Chronic Comments: This is chronic he has left-sided weakness as well as aphasia he will continue rehabilitation at [facility] Qualifiers: CVA mechanism: unspecified Qualified Code(s): I63.9 - Cerebral infarction, unspecified (5) Diabetes Priority: Secondary Status: Chronic Comments: Continue with home medications Qualifiers: Diabetes mellitus type: type 2 Diabetes mellitus halfway insulin use: 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 Chapman is a 56 year old male past medical history of diabetes CVA with left- sided weakness smoking history coronary artery disease and high cholesterol. Patient is a resident of an [facility] where he is receiving rehabilitation secondary to stroke. [facility] due to increased confusion and poor oral intake and generalized weakness. Upon presentation to the ER patient had was tachycardic he had elevated lactate as well as elevated white count. Urinalysis was indicative of a UTI he was admitted. The patient was empirically started on Zosyn urine cultures did reveal Proteus mirabilis, he was switched to Rocephin per sensitivity. His white count has improved its back to baseline he has been afebrile mental status back to baseline according to family members. He has been eating well and has been participating in physical therapy. He will be switched over to oral antibiotics and discharged back to [facility]. He will follow up with primary care as outpatient . I did review this with family members who are present at bedside they verbalized understanding. Presently he is hemodynamically stable at this time Discharge discussed with: patient, family - Time Spent with Patient Total time spent providing and/or coordinating discharge services: Less than 30 minutes - Discharge Medications Home Medications: Atorvastatin Calcium 80 mg PO HS 08/25/16 [History] Clopidogrel [Plavix] 75 mg PO DAILY 08/25/16 [History] Glimepiride [Amaryl] 4 mg PO QAM 08/25/16 [History] Lisinopril [Zestril] 20 mg PO DAILY 08/25/16 [History] Pioglitazone HCl 30 mg PO DAILY 08/25/16 [History] raNITIdine HCl [Ranitidine HCl] 150 mg PO BID 08/25/16 [History] Aspirin Enteric Coated [Aspirin EC] 325 mg PO DAILY tablet. 08/28/16 [Rx] Sertraline [Zoloft] 50 mg PO DAILY 05/31/17 [History] Cefdinir [Omnicef] 300 mg PO BID 11 Days capsule 06/03/17 [Rx] Allergies/Adverse Reactions: 3 Allergy/AdvReac Type Severity Reaction Status Date / Time No Known Allergies Allergy Verified 08/25/16 16:09 Date of admission: 05/31/17 16:35 Primary care physician: Anthony Angulo MD Consults: 06/01/17 08:25 Consult to Speech Therapy [CONS] Routine Comment: Evaluate, develop and implement POC Reason for Consult: Trouble swallowing, choking. Call Completed: No 06/01/17 14:51 Consult to Physical Therapy [CONS] Routine Comment: Evaluate, develop and implement POC Reason for Consult: weakness Does patient have active BEDREST order?: No Is patient medically & hemodynamically stable?: Yes Patient assessed for mobility or mobilized this visit?: No 06/01/17 14:52 Consult to Occupational Therapy [CONS] Routine Comment: Evaluate, develop and implement POC Reason for Consult: weakness Does patient have active BEDREST order?: No Is patient medically & hemodynamically stable?: Yes Patient assessed for mobility or mobilized this visit?: No Discharging clinician: Dang Leon Anticipated date of discharge: 06/03/17 - Constitutional Vitals: Temp Pulse Resp BP Pulse Ox 98.4 F 79 15 120/70 93 06/03/17 06:47 06/03/17 06:47 06/03/17 06:47 06/03/17 06:47 06/03/17 06:47 General appearance: Present: cooperative - Head Head exam: Present: atraumatic, normocephalic - Eye Eye exam: Present: PERRL, conjuntiva pink, sclera anicteric Pupils: Present: PERRL - Neck Neck exam general surgery: Present: supple, trachea midline. Absent: lymphadenopathy - Respiratory Respiratory exam: Present: CTAB. Absent: accessory muscle use, rales, rhonchi, wheezes - Cardiovascular Cardiovascular exam: Present: RRR, +S1, +S2. Absent: diastolic murmur, gallop, rubs, systolic murmur - GI/Abdominal GI/Abdominal exam: Present: normal bowel sounds, soft, no peritoneal signs. Absent: distended, tenderness - Extremities Exam Extremities exam: Present: warm, radial pulses palpable and symmetrical. Absent : calf tenderness, cyanotic, pedal edema - Neurological Exam Neurological exam: Present: CN II-XII intact, oriented X3, no focal deficits. Absent: pronater drift, facial droop, speech deficit - Skin Skin exam: Present: dry, intact - Patient Status Disposition: Transfer SNF Condition: Fair Functional capacity at discharge: wheelchair bound Overall status at discharge: patient is progressing back to baseline - Discharge Instructions Instructions: Urinary Tract Infection in Men (DC), Sepsis (DC) Follow Up With: Anthony Angulo MD [Primary Care Provider] - Forms: ED Satisfaction Letter, Work/School Release - Diet and Activity Activity: as per physical therapy Diet: advance to your usual diet
--- NOTE | 2017-06-03 11:46 | Physician Discharge Referral ---
ExtendedCare Referral Info Transfer To: signiture Provider in Charge: Dang Leon Provider in Charge after Transfer: PCP Institutional Level of Care: Skilled - Diagnosis (1) UTI (urinary tract infection) Priority: Primary Status: Acute (2) Sepsis Priority: Primary Status: Resolved (3) Altered mental status Priority: Primary Status: Resolved (4) CVA (cerebral vascular accident) Priority: Secondary Status: Chronic (5) Diabetes Priority: Secondary Status: Chronic (6) Hypertension Priority: Secondary Status: Chronic (7) Hypokalemia Priority: Secondary Status: Resolved Prognosis: Fair Aware of Diagnosis: Family - Transfer Medications Home Medications: Atorvastatin Calcium 80 mg PO HS 08/25/16 [History] Clopidogrel [Plavix] 75 mg PO DAILY 08/25/16 [History] Glimepiride [Amaryl] 4 mg PO QAM 08/25/16 [History] Lisinopril [Zestril] 20 mg PO DAILY 08/25/16 [History] Pioglitazone HCl 30 mg PO DAILY 08/25/16 [History] raNITIdine HCl [Ranitidine HCl] 150 mg PO BID 08/25/16 [History] Aspirin Enteric Coated [Aspirin EC] 325 mg PO DAILY tablet. 08/28/16 [Rx] Sertraline [Zoloft] 50 mg PO DAILY 05/31/17 [History] Cefdinir [Omnicef] 300 mg PO BID 11 Days capsule 06/03/17 [Rx] Allergies/Adverse Reactions: 3 Allergy/AdvReac Type Severity Reaction Status Date / Time No Known Allergies Allergy Verified 08/25/16 16:09 - Respiratory Orders Smoking Cessation: Smoking cessation has been advised. For more information, call the [place] Tobacco Quit Line at 3-552-VEGENOW. - Advance Directives Code Status: Full Code - Rehabiliation Orders Rehab Potential: Fair Rehab Orders: Evaluation for Physical Therapy, Evaluation for Occupational Therapy, Evaluation for Speech Therapy - Treatments Skin tear care topically daily PRN per policy - Diet Orders Pureed CERTIFICATION: I certify that the transfer of the above named patient to an Extended Care Facility is necessary for the continuing treatment of the diagnosis listed. The above information is true and accurate reflection of patient's current condition. Confidential - Redisclosure prohibited without a patient's written consent.
[2017-06-03 16:08] VITALS: BP 147/87
[2017-06-04] MEDS ORDERED: Cefdinir 300 MG CAPSULE PO SCH (09:00)
== END 2017-06-03 19:00 | DRG 872 ==
LOC: 3BNU 09:21 → EMEROO 09:21 → 3BNU 12:56
PROVIDERS: ADMIT Registered Nurse; ATTEND Registered Nurse

== ENCOUNTER 2018-10-27 07:38 | Observation (INO) ==
[2018-10-27 08:06] LABS: Basophils # 0.1 K/mcL (0.0-0.2); Basophils % 0.9 %; Eosinophils # 0.2 K/mcL (0.0-0.6); Eosinophils % 2.5 %; Hematocrit 40.1 % (37.5-50.1); Hemoglobin 13.1 g/dL (12.9-16.9); Immature Granulocytes % 0.2 % (0-4); Lymphocytes # 1.8 K/mcL (0.6-4.6); Lymphocytes % 22.9 %; Mean Corpuscular HGB Conc 32.7 g/dL (31.6-35.5); Mean Corpuscular Hemoglobin 29.2 pg (28.0-33.3); Mean Corpuscular Volume 89.5 fL (83.0-100.0); Mean Platelet Volume 9.5 fL (9.4-12.4); Monocytes # 0.6 K/mcL (0.0-1.3); Monocytes % 7.5 %; Neutrophils # 5.3 K/mcL (1.6-8.9); Platelet Count 256 K/mcL (140-400); Red Blood Count 4.48 M/mcL (4.19-5.50); Red Cell Distribution Width 12.5 % (11.5-14.5)
[2018-10-27 08:13] LABS: INR 1.1; Prothrombin Time 12.1 Seconds (9.4-12.1)
[2018-10-27] MEDS ORDERED: Isovue-370 500 ML BOTTLE IVP ONE (08:18)
[2018-10-27 08:29] LABS: Troponin I < 0.03 ng/mL (< 0.04)
[2018-10-27 08:54] LABS: Alanine Aminotransferase 15 Units/L (7-52); Albumin 3.8 g/dL (3.5-5.7); Albumin/Globulin Ratio 1.1 (1.1-2.2); Alkaline Phosphatase 65 Units/L (34-104); Aspartate Amino Transferase 13 Units/L (13-39); BUN/Creatinine Ratio 21 (6-26); Bilirubin,Total 0.4 mg/dL (0.3-1.0); Blood Urea Nitrogen 20 mg/dL (6-20); Calcium 8.8 mg/dL (8.6-10.3); Carbon Dioxide 26 mEq/L (23-29); Chloride 104 mEq/L (98-107); Globulin 3.4 g/dL (2.4-3.5); Glucose 125 mg/dL (70-105); Osmolality,Calculated 290 (280-300); Potassium 3.9 mEq/L (3.5-5.1); Sodium 138 mEq/L (136-145); Total Protein 7.2 g/dL (6.4-8.9); eGFR For African Americans > 60 (> 60); eGFR For Non-African Americans > 60 (> 60)
[2018-10-27] MEDS ORDERED: Gadolinium Contrast Agent (WT Based) IV PRN (09:56)
[2018-10-27] MEDS ORDERED: Acetaminophen 325 MG TABLET PO PRN (09:58)
[2018-10-27] MEDS ORDERED: *HR* Labetalol 20 MG/4 ML SYRINGE IVP PRN (10:08)
[2018-10-27] MEDS ORDERED: Dextrose Gel 15 GM/37.5 ML TUBE PO PRN ×2 (10:10)
[2018-10-27] MEDS ORDERED: D5% in Water 1,000 ML IVC PRN (10:10)
[2018-10-27] MEDS ORDERED: *HR* Dextrose 50 % in Water (Syg) 50 ML SYRINGE IVP PRN (10:10)
[2018-10-27 10:11] LABS: Bilirubin,Urine Negative (Negative); Blood,Urine Moderate (Negative); Clarity,Urine Turbid (Clear); Color,Urine Yellow (Yellow); Glucose,Urine (UA) Normal (Normal); Ketones,Urine Negative (Negative); Leukocyte Esterase,Urine Negative (Negative); Nitrite,Urine Negative (Negative); Protein,Urine Negative (Neg-Trace); Specific Gravity,Urine 1.021 (1.010-1.025); Urobilinogen,Urine Normal (Normal)
[2018-10-27 10:13] LABS: Bacteria,Urine None Seen per hpf (None-Few); Hyaline Casts,Urine None Seen per lpf (None-Few); RBC,Urine 15-30 per hpf (0-3); Squamous Epithelial Cell,Urine Many per lpf (None-Few); WBC,Urine 0-3 per hpf (0-3)
[2018-10-27] MEDS: Aspirin Enteric Coated 81 MG Tablet PO SCH (11:10)
[2018-10-27] MEDS: Insulin LISPRO 300 UNITS/3 ML VIAL SQ SCH ×3 (13:33→21:47)
[2018-10-27] MEDS ORDERED: Perflutren Lipid Microsphere 1.3 ML in 0.9 % Sodium Chloride 8.7 ML IVP ONE (14:05)
[2018-10-28 06:23] LABS: Basophils # 0.1 K/mcL (0.0-0.2); Basophils % 0.8 %; Eosinophils # 0.2 K/mcL (0.0-0.6); Eosinophils % 3.6 %; Hematocrit 38.5 % (37.5-50.1); Hemoglobin 12.6 g/dL (12.9-16.9); Immature Granulocytes % 0.5 % (0-4); Lymphocytes # 1.7 K/mcL (0.6-4.6); Lymphocytes % 27.2 %; Mean Corpuscular HGB Conc 32.7 g/dL (31.6-35.5); Mean Corpuscular Hemoglobin 29.2 pg (28.0-33.3); Mean Corpuscular Volume 89.1 fL (83.0-100.0); Mean Platelet Volume 9.6 fL (9.4-12.4); Monocytes # 0.5 K/mcL (0.0-1.3); Monocytes % 7.3 %; Neutrophils # 3.7 K/mcL (1.6-8.9); Platelet Count 252 K/mcL (140-400); Red Blood Count 4.32 M/mcL (4.19-5.50); Red Cell Distribution Width 12.5 % (11.5-14.5); Segmented Neutrophils % 60.6 %; White Blood Count 6.2 K/mcL (4.3-11.1)
[2018-10-28 06:37] LABS: INR 1.1; Prothrombin Time 12.5 Seconds (9.4-12.1)
[2018-10-28 06:44] LABS: BUN/Creatinine Ratio 18 (6-26); Blood Urea Nitrogen 16 mg/dL (6-20); Carbon Dioxide 29 mEq/L (23-29); Chloride 100 mEq/L (98-107); Chol/HDL Ratio 3.8 (0-4.9); Cholesterol 125 mg/dL (< 200); Glucose 126 mg/dL (70-105); HDL Cholesterol 33 mg/dL (40-59); LDL Cholesterol,Calculated 81 mg/dL (0-99); Osmolality,Calculated 295 (280-300); Potassium 3.5 mEq/L (3.5-5.1); Sodium 141 mEq/L (136-145); Triglycerides 53 mg/dL (< 150); eGFR For African Americans > 60 (> 60); eGFR For Non-African Americans > 60 (> 60)
[2018-10-28 06:45] LABS: Chol/HDL Ratio 3.8 (0-4.9)
[2018-10-28] MEDS: Insulin LISPRO 300 UNITS/3 ML VIAL SQ SCH ×4 (08:32→22:12)
[2018-10-28] MEDS: Aspirin Enteric Coated 81 MG Tablet PO SCH (08:57)
[2018-10-28] MEDS: Lisinopril 20 MG TABLET PO SCH (08:57)
[2018-10-28 10:34] LABS: Estimated Average Glucose 163 mg/dl
[2018-10-29 07:48] VITALS: BP 126/72
[2018-10-29] MEDS: Aspirin Enteric Coated 81 MG Tablet PO SCH (08:00)
[2018-10-29] MEDS: Lisinopril 20 MG TABLET PO SCH (08:00)
[2018-10-29] MEDS: Insulin LISPRO 300 UNITS/3 ML VIAL SQ SCH (08:02)
== END 2018-10-29 11:25 ==
LOC: 3BNU 07:38 → EMEROOARM 07:38 → 3BNU 09:59
PROVIDERS: ADMIT Internal Medicine; ATTEND Internal Medicine

== ENCOUNTER 2019-12-06 15:38 | Inpatient (IN) ==
[2019-12-06 16:17] LABS: Basophils # 0.1 K/mcL (0.0-0.2); Basophils % 0.8 %; Eosinophils # 0.1 K/mcL (0.0-0.6); Eosinophils % 1.3 %; Hematocrit 46.3 % (37.5-50.1); Hemoglobin 14.9 g/dL (12.9-16.9); Immature Granulocytes % 0.3 % (0-4); Lymphocytes # 1.6 K/mcL (0.6-4.6); Lymphocytes % 21.6 %; Mean Corpuscular HGB Conc 32.2 g/dL (31.6-35.5); Mean Corpuscular Hemoglobin 28.7 pg (28.0-33.3); Mean Corpuscular Volume 89.2 fL (83.0-100.0); Mean Platelet Volume 10.7 fL (9.4-12.4); Monocytes # 0.4 K/mcL (0.0-1.3); Monocytes % 5.2 %; Neutrophils # 5.3 K/mcL (1.6-8.9); Platelet Count 260 K/mcL (140-400); Red Blood Count 5.19 M/mcL (4.19-5.50); Red Cell Distribution Width 13.1 % (11.5-14.5); Segmented Neutrophils % 70.8 %; White Blood Count 7.5 K/mcL (4.3-11.1)
[2019-12-06 16:46] LABS: Acetaminophen < 10 mcg/mL (10-20); BUN/Creatinine Ratio 13 (6-26); Blood Urea Nitrogen 10 mg/dL (8-23); Calcium 8.7 mg/dL (8.6-10.3); Carbon Dioxide 26 mEq/L (23-29); Chloride 100 mEq/L (98-107); Ethanol < 10 mg/dL (Less than 10); Glucose 430 mg/dL (70-105); Osmolality,Calculated 301 (280-300); Potassium 3.5 mEq/L (3.5-5.1); Salicylate < 2.5 mg/dL (15.0-30.0); Sodium 137 mEq/L (136-145); eGFR For African Americans > 60 (> 60); eGFR For Non-African Americans > 60 (> 60)
[2019-12-06] MEDS ORDERED: Insulin Regular, Human 100 UNIT/ML SQ ONE (17:02)
[2019-12-06 17:05] LABS: Bilirubin,Urine Negative (Negative); Blood,Urine Negative (Negative); Clarity,Urine Clear (Clear); Color,Urine Light-Yellow (Yellow); Glucose,Urine (UA) >=1000 mg/dL (Normal); Ketones,Urine Negative (Negative); Leukocyte Esterase,Urine Negative (Negative); Nitrite,Urine Negative (Negative); Protein,Urine Negative (Neg-Trace); RBC,Urine 0-3 per hpf (0-3); Specific Gravity,Urine > 1.030 (1.010-1.025); WBC,Urine 0-3 per hpf (0-3)
[2019-12-06 17:14] LABS: Amphetamine Screen,Urine Negative ng/mL (Cutoff=1000); Barbiturate Screen,Urine Negative ng/mL (Cutoff=200); Benzodiazepines Screen,Urine Negative ng/mL (Cutoff=200); Cannabinoid Screen,Urine Negative ng/mL (Cutoff = 50); Cocaine Screen,Urine Negative ng/mL (Cutoff= 300); Opiate Screen,Urine Negative ng/mL (Cutoff=300); Phencyclidine Screen,Urine Negative ng/mL (Cutoff=25)
[2019-12-06] MEDS ORDERED: Ondansetron 4 MG/2 ML VIAL IVP PRN (17:24)
[2019-12-06] MEDS ORDERED: Naloxone 0.4 MG/ML INJ IVP PRN (17:24)
[2019-12-06] MEDS ORDERED: *HR* HYDROcodone/Acet 5/325 mg TABLET PO PRN (17:24)
[2019-12-06] MEDS ORDERED: D5% in Water 1,000 ML IVC PRN (17:26)
[2019-12-06] MEDS ORDERED: Dextrose Gel 15 GM/37.5 ML TUBE PO PRN ×2 (17:26)
[2019-12-06] MEDS ORDERED: *HR* Dextrose 50 % in Water (Vial) 50 ML VIAL IVP PRN (17:26)
[2019-12-06] MEDS ORDERED: Albuterol 2.5 MG/3 ML NEBULIZER IH PRN (17:52)
[2019-12-06] MEDS: *HR* Heparin 5,000 UNIT/ML VIAL SQ SCH (19:53)
[2019-12-06] MEDS: Insulin DETEMIR 100 UNIT/ML X5UNITS SQ SCH (19:53)
[2019-12-06] MEDS: Insulin LISPRO 300 UNITS/3 ML VIAL SQ SCH (19:54)
[2019-12-07 01:36] LABS: INR 1.1; Prothrombin Time 12.6 Seconds (9.4-12.1)
[2019-12-07 01:38] LABS: Basophils # 0.1 K/mcL (0.0-0.2); Basophils % 0.7 %; Eosinophils # 0.1 K/mcL (0.0-0.6); Eosinophils % 1.4 %; Hemoglobin 14.7 g/dL (12.9-16.9); Immature Granulocytes % 0.2 % (0-4); Lymphocytes % 24.7 %; Mean Corpuscular Hemoglobin 28.4 pg (28.0-33.3); Mean Corpuscular Volume 88.8 fL (83.0-100.0); Monocytes # 0.5 K/mcL (0.0-1.3); Monocytes % 5.6 %; Neutrophils # 5.5 K/mcL (1.6-8.9); Platelet Count 260 K/mcL (140-400); Red Blood Count 5.18 M/mcL (4.19-5.50); Segmented Neutrophils % 67.4 %; White Blood Count 8.1 K/mcL (4.3-11.1)
[2019-12-07 01:39] LABS: Activated Partial Thrombo Time 33.7 Seconds (26.0-36.0)
[2019-12-07 01:58] LABS: BUN/Creatinine Ratio 14 (6-26); Blood Urea Nitrogen 9 mg/dL (8-23); Calcium 8.7 mg/dL (8.6-10.3); Carbon Dioxide 26 mEq/L (23-29); Chloride 102 mEq/L (98-107); Glucose 145 mg/dL (70-105); Osmolality,Calculated 289 (280-300); Potassium 3.1 mEq/L (3.5-5.1); Sodium 139 mEq/L (136-145); eGFR For African Americans > 60 (> 60); eGFR For Non-African Americans > 60 (> 60)
[2019-12-07 02:00] LABS: Magnesium 1.7 mg/dL (1.6-2.6); Phosphorous 3.5 mg/dL (2.7-4.5)
[2019-12-07] MEDS: *HR* Heparin 5,000 UNIT/ML VIAL SQ SCH ×2 (06:10→17:53)
[2019-12-07] MEDS: Aspirin Enteric Coated 81 MG Tablet PO SCH (08:22)
[2019-12-07] MEDS: lisinopriL 20 MG TABLET PO SCH (08:22)
[2019-12-07] MEDS: Insulin LISPRO 300 UNITS/3 ML VIAL SQ SCH ×4 (08:23→21:28)
[2019-12-07] MEDS: Insulin DETEMIR 100 UNIT/ML X5UNITS SQ SCH (21:28)
[2019-12-08 01:09] LABS: Hematocrit 45.4 % (37.5-50.1); Hemoglobin 14.3 g/dL (12.9-16.9); Mean Corpuscular HGB Conc 31.5 g/dL (31.6-35.5); Mean Corpuscular Volume 88.8 fL (83.0-100.0); Mean Platelet Volume 10.8 fL (9.4-12.4); Platelet Count 261 K/mcL (140-400); Red Blood Count 5.11 M/mcL (4.19-5.50); Red Cell Distribution Width 13.2 % (11.5-14.5); White Blood Count 7.1 K/mcL (4.3-11.1)
[2019-12-08 01:29] LABS: BUN/Creatinine Ratio 23 (6-26); Blood Urea Nitrogen 19 mg/dL (8-23); Calcium 8.7 mg/dL (8.6-10.3); Carbon Dioxide 26 mEq/L (23-29); Chloride 102 mEq/L (98-107); Glucose 209 mg/dL (70-105); Osmolality,Calculated 294 (280-300); Potassium 3.4 mEq/L (3.5-5.1); Sodium 138 mEq/L (136-145); eGFR For African Americans > 60 (> 60); eGFR For Non-African Americans > 60 (> 60)
[2019-12-08] MEDS: *HR* Heparin 5,000 UNIT/ML VIAL SQ SCH ×2 (05:59→17:39)
[2019-12-08] MEDS: Insulin LISPRO 300 UNITS/3 ML VIAL SQ SCH ×4 (08:18→23:23)
[2019-12-08] MEDS: lisinopriL 20 MG TABLET PO SCH (09:08)
[2019-12-08] MEDS: Aspirin Enteric Coated 81 MG Tablet PO SCH (09:08)
[2019-12-08] MEDS: Furosemide 20 MG TABLET PO SCH (09:08)
[2019-12-08] MEDS ORDERED: E-Z-HD (BARIUM SULF) SUSPENSION PO ONE (17:06)
[2019-12-08] MEDS: D5% in 0.9% NACL 1,000 ML IVC SCH (17:39)
[2019-12-08] MEDS ORDERED: Potassium Chloride 20 MEQ, Lidocaine 1% 2 ML in 0.9 % Sodium Chloride 250 ML IVPB ONE (22:45)
[2019-12-08] MEDS: Insulin DETEMIR 100 UNIT/ML X5UNITS SQ SCH (23:24)
[2019-12-09 03:26] LABS: Hematocrit 43.6 % (37.5-50.1); Hemoglobin 13.7 g/dL (12.9-16.9); Mean Corpuscular HGB Conc 31.4 g/dL (31.6-35.5); Mean Corpuscular Hemoglobin 28.7 pg (28.0-33.3); Mean Corpuscular Volume 91.2 fL (83.0-100.0); Mean Platelet Volume 10.8 fL (9.4-12.4); Platelet Count 265 K/mcL (140-400); Red Blood Count 4.78 M/mcL (4.19-5.50); Red Cell Distribution Width 13.2 % (11.5-14.5); White Blood Count 7.3 K/mcL (4.3-11.1)
[2019-12-09 03:43] LABS: BUN/Creatinine Ratio 28 (6-26); Blood Urea Nitrogen 20 mg/dL (8-23); Calcium 8.3 mg/dL (8.6-10.3); Carbon Dioxide 25 mEq/L (23-29); Chloride 106 mEq/L (98-107); Glucose 198 mg/dL (70-105); Osmolality,Calculated 296 (280-300); Potassium 3.9 mEq/L (3.5-5.1); Sodium 139 mEq/L (136-145); eGFR For African Americans > 60 (> 60); eGFR For Non-African Americans > 60 (> 60)
[2019-12-09] MEDS: *HR* Heparin 5,000 UNIT/ML VIAL SQ SCH ×2 (05:02→17:27)
[2019-12-09] MEDS: Insulin LISPRO 300 UNITS/3 ML VIAL SQ SCH ×3 (05:58→17:27)
[2019-12-09] MEDS: Furosemide 20 MG TABLET PO SCH (09:07)
[2019-12-09] MEDS: lisinopriL 20 MG TABLET PO SCH (09:07)
[2019-12-09] MEDS: D5% in 0.9% NACL 1,000 ML IVC SCH (09:16)
[2019-12-09] MEDS: Aspirin Enteric Coated 81 MG Tablet PO SCH (09:19)
[2019-12-09] MEDS: Insulin DETEMIR 100 UNIT/ML X5UNITS SQ SCH (21:26)
[2019-12-09] MEDS: Potassium Chloride Elixir 20 MEQ/15 ML UDC PO SCH (21:31)
[2019-12-10 02:05] LABS: Hematocrit 43.6 % (37.5-50.1); Hemoglobin 13.8 g/dL (12.9-16.9); Mean Corpuscular HGB Conc 31.7 g/dL (31.6-35.5); Mean Corpuscular Hemoglobin 29.1 pg (28.0-33.3); Mean Corpuscular Volume 91.8 fL (83.0-100.0); Mean Platelet Volume 10.3 fL (9.4-12.4); Platelet Count 232 K/mcL (140-400); Red Blood Count 4.75 M/mcL (4.19-5.50); Red Cell Distribution Width 13.1 % (11.5-14.5); White Blood Count 5.9 K/mcL (4.3-11.1)
[2019-12-10 02:24] LABS: BUN/Creatinine Ratio 22 (6-26); Blood Urea Nitrogen 14 mg/dL (8-23); Calcium 8.2 mg/dL (8.6-10.3); Carbon Dioxide 25 mEq/L (23-29); Chloride 109 mEq/L (98-107); Glucose 186 mg/dL (70-105); Osmolality,Calculated 297 (280-300); Potassium 3.7 mEq/L (3.5-5.1); Sodium 141 mEq/L (136-145); eGFR For African Americans > 60 (> 60); eGFR For Non-African Americans > 60 (> 60)
[2019-12-10] MEDS: D5% in 0.9% NACL 1,000 ML IVC SCH ×2 (02:39→16:14)
[2019-12-10] MEDS: Insulin LISPRO 300 UNITS/3 ML VIAL SQ SCH ×4 (05:33→17:00)
[2019-12-10] MEDS: *HR* Heparin 5,000 UNIT/ML VIAL SQ SCH ×2 (05:38→17:07)
[2019-12-10] MEDS: Aspirin Enteric Coated 81 MG Tablet PO SCH (09:22)
[2019-12-10] MEDS: Potassium Chloride Elixir 20 MEQ/15 ML UDC PO SCH ×2 (09:22→21:26)
[2019-12-10] MEDS: Insulin DETEMIR 100 UNIT/ML X5UNITS SQ SCH (22:26)
[2019-12-11] MEDS: Insulin LISPRO 300 UNITS/3 ML VIAL SQ SCH ×4 (00:14→17:39)
[2019-12-11] MEDS: *HR* Heparin 5,000 UNIT/ML VIAL SQ SCH ×2 (05:29→17:42)
[2019-12-11] MEDS: D5% in 0.9% NACL 1,000 ML IVC SCH ×2 (07:30→17:43)
[2019-12-11] MEDS: Aspirin Enteric Coated 81 MG Tablet PO SCH (07:31)
[2019-12-11] MEDS: Potassium Chloride Elixir 20 MEQ/15 ML UDC PO SCH ×2 (08:35→22:16)
[2019-12-11] MEDS: lisinopriL 20 MG TABLET PO SCH (08:37)
[2019-12-11] MEDS ORDERED: E-Z-HD (BARIUM SULF) SUSPENSION PO ONE (10:50)
[2019-12-11] MEDS ORDERED: E-Z-PAQUE (BARIUM SULF) SUSP 1 BOTTLE PO ONE (10:50)
[2019-12-11] MEDS: Insulin DETEMIR 100 UNIT/ML X5UNITS SQ SCH (22:17)
[2019-12-12] MEDS: Insulin LISPRO 300 UNITS/3 ML VIAL SQ SCH ×4 (00:46→17:05)
[2019-12-12] MEDS: *HR* Heparin 5,000 UNIT/ML VIAL SQ SCH ×2 (06:13→17:05)
[2019-12-12] MEDS: D5% in 0.9% NACL 1,000 ML IVC SCH (06:18)
[2019-12-12 06:52] VITALS: BP 110/65
[2019-12-12] MEDS: Aspirin Enteric Coated 81 MG Tablet PO SCH (09:00)
[2019-12-12] MEDS: lisinopriL 20 MG TABLET PO SCH (09:00)
[2019-12-12] MEDS: Potassium Chloride Elixir 20 MEQ/15 ML UDC PO SCH (09:01)
== END 2019-12-12 17:49 | disposition home health service (06) | DRG 884 ==
LOC: EMEROOARM 15:38 → 3BNU 15:38 → SUATTDRO 17:34 → 3BNU 18:45
PROVIDERS: ADMIT Internal Medicine; ATTEND Internal Medicine

== ENCOUNTER 2020-04-13 09:56 | Observation (INO) ==
[2020-04-13] MEDS ORDERED: *HR* Dextrose 50 % in Water (Vial) 50 ML VIAL IVP ONE (10:11)
[2020-04-13] MEDS ORDERED: 0.9 % Sodium Chloride 1,000 ML IVC ONE (10:16)
[2020-04-13 10:53] LABS: Basophils # 0.1 K/mcL (0.0-0.2); Basophils % 0.7 %; Eosinophils # 0.1 K/mcL (0.0-0.6); Eosinophils % 1.7 %; Hematocrit 41.1 % (37.5-50.1); Hemoglobin 12.6 g/dL (12.9-16.9); Immature Granulocytes % 0.3 % (0-4); Lymphocytes # 2.3 K/mcL (0.6-4.6); Lymphocytes % 29.9 %; Mean Corpuscular HGB Conc 30.7 g/dL (31.6-35.5); Mean Corpuscular Hemoglobin 28.4 pg (28.0-33.3); Mean Corpuscular Volume 92.8 fL (83.0-100.0); Mean Platelet Volume 9.8 fL (9.4-12.4); Monocytes # 0.7 K/mcL (0.0-1.3); Monocytes % 8.6 %; Neutrophils # 4.5 K/mcL (1.6-8.9); Platelet Count 258 K/mcL (140-400); Red Blood Count 4.43 M/mcL (4.19-5.50); Red Cell Distribution Width 14.9 % (11.5-14.5); Segmented Neutrophils % 58.8 %; White Blood Count 7.6 K/mcL (4.3-11.1)
[2020-04-13 11:15] LABS: BUN/Creatinine Ratio 28 (6-26); Blood Urea Nitrogen 29 mg/dL (8-23); Calcium 9.2 mg/dL (8.6-10.3); Carbon Dioxide 13 mEq/L (23-29); Chloride 104 mEq/L (98-107); Glucose 97 mg/dL (70-105); Osmolality,Calculated 294 (280-300); Potassium 3.5 mEq/L (3.5-5.1); Sodium 139 mEq/L (136-145); eGFR For African Americans > 60 (> 60); eGFR For Non-African Americans > 60 (> 60)
[2020-04-13 11:22] LABS: Troponin I < 0.03 ng/mL (< 0.04)
[2020-04-13] MEDS ORDERED: 0.9 % Sodium Chloride 1,000 ML ONE (12:30)
[2020-04-13] MEDS ORDERED: 0.9 % Sodium Chloride 1,000 ML IVC STA (12:35)
[2020-04-13 14:06] LABS: Phosphorous 3.8 mg/dL (2.7-4.5)
[2020-04-13] MEDS ORDERED: Dextrose Gel 15 GM/37.5 ML TUBE PO PRN ×2 (14:39)
[2020-04-13] MEDS ORDERED: *HR* Dextrose 50 % in Water (Vial) 50 ML VIAL IVP PRN (14:39)
[2020-04-13] MEDS ORDERED: D5% in Water 1,000 ML IVC PRN (14:39)
[2020-04-13] MEDS ORDERED: Ringers Solution, Lactated 1,000 ML IVC ONE (14:48)
[2020-04-13 16:09] LABS: VBG HCO3 23 mEq/L (21-27); VBG PCO2 46 mmHg (41-51); VBG PO2 70 mmHg (25-50)
[2020-04-13] MEDS: cefTRIAXone 1,000 MG in Water for inj. (sterile) 10 ML IVP SCH (16:48)
[2020-04-13 17:18] LABS: Bilirubin,Urine Negative (Negative); Blood,Urine Negative (Negative); Clarity,Urine Clear (Clear); Color,Urine Light-Yellow (Yellow); Glucose,Urine (UA) >=1000 mg/dL (Normal); Hyaline Casts,Urine Few per lpf (None Seen); Ketones,Urine Negative (Negative); Leukocyte Esterase,Urine Negative (Negative); Mucus,Urine Few per lpf (None-Few); Nitrite,Urine Negative (Negative); Protein,Urine Trace mg/dL (Neg-Trace); Specific Gravity,Urine 1.012 (1.010-1.025); Squamous Epithelial Cell,Urine Few per hpf (None-Few); Urobilinogen,Urine Normal (Normal); WBC,Urine 0-3 per hpf (0-3)
[2020-04-14 05:40] LABS: Adenovirus F 40/41 PCR Not detected (Not detect); Astrovirus PCR Not detected (Not detect); C.difficile Toxin A/B Gene PCR Not detected (Not detect); Campylobacter by PCR Not detected (Not detect); Cryptosporidium by PCR Not detected (Not detect); Cyclospora cayetanensis PCR Not detected (Not detect); E. coli O157 by PCR Not detected (Not detect); Entamoeba histolytica PCR Not detected (Not detect); Enteroaggregative E.coli(EAEC) Not detected (Not detect); Enteropathogenic E.coli(EPEC) Not detected (Not detect); Enterotoxigenic E.coli (ETEC) Not detected (Not detect); Giardia lamblia PCR Not detected (Not detect); Norovirus GI/GII PCR Not detected (Not detect); Plesiomonas shigelloides PCR Not detected (Not detect); Rotavirus A PCR Not detected (Not detect); Salmonella PCR Not detected (Not detect); Sapovirus PCR Not detected (Not detect); Shig/EnteroinvasiveE coli EIEC Not detected (Not detect); Shigalike tox-prod E coli STEC Not detected (Not detect); Vibrio PCR Not detected (Not detect); Vibrio cholerae PCR Not detected (Not detect); Yersinia enterocolitica PCR Not detected (Not detect)
[2020-04-14] MEDS: *HR* Enoxaparin 40 MG/0.4 ML SYRINGE SQ SCH (06:05)
[2020-04-14] MEDS: cefTRIAXone 1,000 MG in Water for inj. (sterile) 10 ML IVP SCH (08:40)
[2020-04-14 16:19] LABS: Basophils % 0.6 %; Eosinophils # 0.2 K/mcL (0.0-0.6); Eosinophils % 2.1 %; Hematocrit 36.9 % (37.5-50.1); Hemoglobin 11.9 g/dL (12.9-16.9); Immature Granulocytes % 0.1 % (0-4); Lymphocytes # 2.2 K/mcL (0.6-4.6); Lymphocytes % 30.9 %; Mean Corpuscular HGB Conc 32.2 g/dL (31.6-35.5); Mean Platelet Volume 10.2 fL (9.4-12.4); Monocytes # 0.6 K/mcL (0.0-1.3); Monocytes % 8.3 %; Neutrophils # 4.1 K/mcL (1.6-8.9); Platelet Count 201 K/mcL (140-400); Red Cell Distribution Width 14.8 % (11.5-14.5)
[2020-04-14 16:38] LABS: Albumin 3.6 g/dL (3.5-5.7); Albumin/Globulin Ratio 1.3 (1.1-2.2); Bilirubin,Direct 0.1 mg/dL (0.0-0.2); Bilirubin,Indirect 0.2 mg/dL (0.0-1.0); Bilirubin,Total 0.3 mg/dL (0.3-1.0); Globulin 2.8 g/dL (2.4-3.5); Total Protein 6.4 g/dL (6.4-8.9)
[2020-04-14 16:39] LABS: BUN/Creatinine Ratio 25 (6-26); Blood Urea Nitrogen 21 mg/dL (8-23); Calcium 8.5 mg/dL (8.6-10.3); Carbon Dioxide 22 mEq/L (23-29); Chloride 112 mEq/L (98-107); Glucose 130 mg/dL (70-105); Osmolality,Calculated 299 (280-300); Potassium 3.6 mEq/L (3.5-5.1); Sodium 142 mEq/L (136-145); eGFR For African Americans > 60 (> 60); eGFR For Non-African Americans > 60 (> 60)
[2020-04-14 16:53] LABS: Thyroid Stimulating Hormone 1.707 mcIU/mL (0.340-5.600)
[2020-04-14] MEDS: Lactobacillus 1 EACH CAP.SPRINK PO SCH (21:10)
[2020-04-15] MEDS: *HR* Enoxaparin 40 MG/0.4 ML SYRINGE SQ SCH (05:02)
[2020-04-15] MEDS: Lactobacillus 1 EACH CAP.SPRINK PO SCH (07:27)
[2020-04-15] MEDS ORDERED: Aspirin Enteric Coated 81 MG Tablet PO SCH (09:00)
[2020-04-15 11:13] VITALS: BP 110/68
[2020-04-15] MEDS: Insulin LISPRO 300 UNITS/3 ML VIAL SUBQ SCH ×2 (12:33→17:01)
[2020-04-15] MEDS ORDERED: Insulin LISPRO 300 UNITS/3 ML VIAL SUBQ SCH (21:00)
== END 2020-04-15 17:52 | disposition home health service (06) ==
LOC: 2NNU 09:56 → EMEROOARM 09:56 → SUATTDRO 13:33 → 2NNU 14:25 → 3BNU 04-14 15:44
PROVIDERS: ADMIT Internal Medicine; ATTEND Internal Medicine

== ENCOUNTER 2020-05-16 12:55 | Observation (INO) ==
[2020-05-16] MEDS ORDERED: 0.9 % Sodium Chloride 1,000 ML IVC ONE (13:09)
[2020-05-16 13:32] LABS: Basophils # 0.1 K/mcL (0.0-0.2); Basophils % 0.7 %; Eosinophils # 0.1 K/mcL (0.0-0.6); Eosinophils % 0.9 %; Hematocrit 47.7 % (37.5-50.1); Hemoglobin 14.7 g/dL (12.9-16.9); Immature Granulocytes % 0.3 % (0-4); Lymphocytes # 1.8 K/mcL (0.6-4.6); Lymphocytes % 19.6 %; Mean Corpuscular HGB Conc 30.8 g/dL (31.6-35.5); Mean Corpuscular Hemoglobin 28.5 pg (28.0-33.3); Mean Corpuscular Volume 92.6 fL (83.0-100.0); Mean Platelet Volume 10.3 fL (9.4-12.4); Monocytes # 0.5 K/mcL (0.0-1.3); Monocytes % 5.9 %; Neutrophils # 6.5 K/mcL (1.6-8.9); Platelet Count 284 K/mcL (140-400); Red Blood Count 5.15 M/mcL (4.19-5.50); Red Cell Distribution Width 14.9 % (11.5-14.5); Segmented Neutrophils % 72.6 %
[2020-05-16 14:01] LABS: Alanine Aminotransferase 33 Units/L (7-52); Albumin 4.6 g/dL (3.5-5.7); Albumin/Globulin Ratio 1.2 (1.1-2.2); Alkaline Phosphatase 59 Units/L (34-104); Aspartate Amino Transferase 25 Units/L (13-39); BUN/Creatinine Ratio 35 (6-26); Bilirubin,Indirect 0.5 mg/dL (0.0-1.0); Bilirubin,Total 0.5 mg/dL (0.3-1.0); Blood Urea Nitrogen 29 mg/dL (8-23); Carbon Dioxide 25 mEq/L (23-29); Chloride 101 mEq/L (98-107); Creatine Kinase 101 Units/L (30-223); Glucose 204 mg/dL (70-105); Magnesium 2.8 mg/dL (1.6-2.6); Osmolality,Calculated 302 (280-300); Potassium 4.2 mEq/L (3.5-5.1); Sodium 140 mEq/L (136-145); Total Protein 8.6 g/dL (6.4-8.9); Troponin I < 0.03 ng/mL (< 0.04); eGFR For African Americans > 60 (> 60); eGFR For Non-African Americans > 60 (> 60)
[2020-05-16 14:04] LABS: Bilirubin,Urine Negative (Negative); Blood,Urine Negative (Negative); Clarity,Urine Clear (Clear); Color,Urine Light-Yellow (Yellow); Glucose,Urine (UA) >=1000 mg/dL (Normal); Ketones,Urine Trace mg/dL (Negative); Leukocyte Esterase,Urine Negative (Negative); Nitrite,Urine Negative (Negative); PH,Urine 5.5 pH Units (5.0-8.0); Protein,Urine Negative (Neg-Trace); RBC,Urine 0-3 per hpf (0-3); Specific Gravity,Urine 1.026 (1.010-1.025); Urobilinogen,Urine Normal (Normal); WBC,Urine 0-3 per hpf (0-3)
[2020-05-16 14:27] LABS: Adenovirus Not Detected (Not Detect); Bordetella Pertussis Not Detected (Not Detect); Chlamydophila pneumoniae Not Detected (Not Detect); Coronavirus 229E Not Detected (Not Detect); Coronavirus HKU1 Not Detected (Not Detect); Coronavirus NL63 Not Detected (Not Detect); Coronavirus OC43 Not Detected (Not Detect); Human Metapneumovirus Not Detected (Not Detect); Human Rhinovirus/Enterovirus Not Detected (Not Detect); Influenza A Subtype 2009 H1 Not Detected (Not Detect); Influenza B Not Detected (Not Detect); Mycoplasma pneumoniae Not Detected (Not Detect); Parainfluenza Virus 1 Not Detected (Not Detect); Parainfluenza Virus 2 Not Detected (Not Detect); Parainfluenza Virus 3 Not Detected (Not Detect); Parainfluenza Virus 4 Not Detected (Not Detect); Respiratory Syncytial Virus Not Detected (Not Detect); SARS-CoV-2 Not Detected (Not Detect)
[2020-05-16] MEDS ORDERED: Ondansetron 4 MG/2 ML VIAL IVP PRN (16:53)
[2020-05-16] MEDS ORDERED: Naloxone 0.4 MG/ML INJ IVP PRN (16:53)
[2020-05-16] MEDS ORDERED: *HR* Dextrose 50 % in Water (Vial) 50 ML VIAL IVP PRN (17:23)
[2020-05-16] MEDS ORDERED: Dextrose Gel 15 GM/37.5 ML TUBE PO PRN ×2 (17:23)
[2020-05-16] MEDS ORDERED: D5% in Water 1,000 ML IVC PRN (17:23)
[2020-05-16] MEDS ORDERED: Perflutren Lipid Microsphere 1.3 ML in 0.9 % Sodium Chloride 8.7 ML IVP PRN (17:27)
[2020-05-16 18:12] LABS: C-Reactive Protein < 5 mg/L (Less than 10); Lipase 43 Units/L (11-82)
[2020-05-16 18:25] LABS: Thyroid Stimulating Hormone 1.198 mcIU/mL (0.340-5.600)
[2020-05-16] MEDS: 0.9 % Sodium Chloride 1,000 ML IVC SCH (18:38)
[2020-05-16 18:49] LABS: Folate 12.3 ng/mL (3.0-16.0)
[2020-05-16 18:58] LABS: Estimated Average Glucose 151 mg/dl; Hemoglobin A1C 6.9 %
[2020-05-16] MEDS: Insulin LISPRO 300 UNITS/3 ML VIAL SUBQ SCH (19:25)
[2020-05-16 21:49] LABS: ABG Base Excess -2 mEq/L (-2 to 3); ABG HCO3 25 mEq/L (21-27); ABG Oxygen Saturation 93 % (95-98); ABG PCO2 46 mmHg (35-45); ABG PH 7.33 pH Units (7.32-7.45); ABG PO2 72 mmHg (85-104); ABG TCO2 26 mEq/L (20-26)
[2020-05-16 22:04] LABS: Magnesium 2.1 mg/dL (1.6-2.6); Phosphorous 4.5 mg/dL (2.7-4.5)
[2020-05-16 22:05] LABS: Troponin I < 0.03 ng/mL (< 0.04)
[2020-05-16] MEDS: *HR* Heparin 5,000 UNIT/ML VIAL SQ SCH (22:14)
[2020-05-17] MEDS: Insulin LISPRO 300 UNITS/3 ML VIAL SUBQ SCH ×5 (00:44→23:48)
[2020-05-17 04:45] LABS: BUN/Creatinine Ratio 41 (6-26); Blood Urea Nitrogen 27 mg/dL (8-23); Calcium 9.2 mg/dL (8.6-10.3); Carbon Dioxide 20 mEq/L (23-29); Chloride 108 mEq/L (98-107); Chol/HDL Ratio 3.9 (0-4.9); Cholesterol 132 mg/dL (< 200); Glucose 110 mg/dL (70-105); HDL Cholesterol 34 mg/dL (40-59); LDL Cholesterol,Calculated 83 mg/dL (< 100); Osmolality,Calculated 300 (280-300); Potassium 5.1 mEq/L (3.5-5.1); Sodium 142 mEq/L (136-145); Triglycerides 77 mg/dL (< 150); eGFR For African Americans > 60 (> 60); eGFR For Non-African Americans > 60 (> 60)
[2020-05-17 05:20] LABS: Basophils # 0.1 K/mcL (0.0-0.2); Basophils % 0.6 %; Eosinophils # 0.1 K/mcL (0.0-0.6); Hematocrit 40.5 % (37.5-50.1); Immature Granulocytes % 0.6 % (0-4); Lymphocytes # 2.2 K/mcL (0.6-4.6); Lymphocytes % 28.1 %; Mean Corpuscular HGB Conc 31.6 g/dL (31.6-35.5); Mean Corpuscular Hemoglobin 28.4 pg (28.0-33.3); Mean Platelet Volume 11.1 fL (9.4-12.4); Monocytes # 0.6 K/mcL (0.0-1.3); Monocytes % 7.5 %; Neutrophils # 4.8 K/mcL (1.6-8.9); Platelet Count 250 K/mcL (140-400); Red Cell Distribution Width 14.9 % (11.5-14.5); Segmented Neutrophils % 62.2 %; White Blood Count 7.8 K/mcL (4.3-11.1)
[2020-05-17 05:22] LABS: Hemoglobin 12.8 g/dL (12.9-16.9)
[2020-05-17] MEDS: *HR* Heparin 5,000 UNIT/ML VIAL SQ SCH ×3 (05:41→21:17)
[2020-05-17] MEDS: Aspirin Enteric Coated 81 MG Tablet PO SCH (09:32)
[2020-05-17] MEDS: Cyanocobalamin (B-12) 1,000 MCG TABLET PO SCH (09:33)
[2020-05-17] MEDS: 0.9 % Sodium Chloride 1,000 ML IVC SCH (09:33)
[2020-05-17] MEDS: levETIRAcetam 250 MG TABLET PO SCH (17:47)
[2020-05-18] MEDS: 0.9 % Sodium Chloride 1,000 ML IVC SCH ×2 (00:08→14:29)
[2020-05-18] MEDS: levETIRAcetam 250 MG TABLET PO SCH ×2 (06:06→18:46)
[2020-05-18] MEDS: *HR* Heparin 5,000 UNIT/ML VIAL SQ SCH ×3 (06:06→20:16)
[2020-05-18] MEDS: Insulin LISPRO 300 UNITS/3 ML VIAL SUBQ SCH ×3 (06:07→18:44)
[2020-05-18] MEDS: Cyanocobalamin (B-12) 1,000 MCG TABLET PO SCH (08:31)
[2020-05-18] MEDS: Aspirin Enteric Coated 81 MG Tablet PO SCH (08:31)
[2020-05-19] MEDS: Insulin LISPRO 300 UNITS/3 ML VIAL SUBQ SCH ×4 (00:34→18:44)
[2020-05-19] MEDS: 0.9 % Sodium Chloride 1,000 ML IVC SCH (02:56)
[2020-05-19] MEDS: levETIRAcetam 250 MG TABLET PO SCH ×2 (05:03→17:16)
[2020-05-19] MEDS: *HR* Heparin 5,000 UNIT/ML VIAL SQ SCH ×3 (05:03→22:12)
[2020-05-19 06:25] LABS: Hematocrit 34.2 % (37.5-50.1); Mean Corpuscular HGB Conc 31.3 g/dL (31.6-35.5); Mean Corpuscular Hemoglobin 29.6 pg (28.0-33.3); Mean Corpuscular Volume 94.5 fL (83.0-100.0); Mean Platelet Volume 10.5 fL (9.4-12.4); Platelet Count 211 K/mcL (140-400); Red Blood Count 3.62 M/mcL (4.19-5.50); Red Cell Distribution Width 15.1 % (11.5-14.5); White Blood Count 6.5 K/mcL (4.3-11.1)
[2020-05-19 06:26] LABS: Hemoglobin 10.7 g/dL (12.9-16.9)
[2020-05-19 06:47] LABS: BUN/Creatinine Ratio 33 (6-26); Blood Urea Nitrogen 24 mg/dL (8-23); Calcium 8.7 mg/dL (8.6-10.3); Carbon Dioxide 26 mEq/L (23-29); Chloride 111 mEq/L (98-107); Glucose 140 mg/dL (70-105); Osmolality,Calculated 302 (280-300); Potassium 3.7 mEq/L (3.5-5.1); Sodium 143 mEq/L (136-145); eGFR For African Americans > 60 (> 60); eGFR For Non-African Americans > 60 (> 60)
[2020-05-19] MEDS: Cyanocobalamin (B-12) 1,000 MCG TABLET PO SCH (08:37)
[2020-05-19] MEDS: Aspirin Enteric Coated 81 MG Tablet PO SCH (08:38)
[2020-05-20] MEDS: Insulin LISPRO 300 UNITS/3 ML VIAL SUBQ SCH ×3 (00:21→11:50)
[2020-05-20] MEDS: levETIRAcetam 250 MG TABLET PO SCH (06:21)
[2020-05-20] MEDS: *HR* Heparin 5,000 UNIT/ML VIAL SQ SCH (06:21)
[2020-05-20] MEDS: Aspirin Enteric Coated 81 MG Tablet PO SCH (09:49)
[2020-05-20] MEDS: Cyanocobalamin (B-12) 1,000 MCG TABLET PO SCH (09:49)
[2020-05-20 10:42] VITALS: BP 102/61
== END 2020-05-20 13:58 | disposition home health service (06) ==
LOC: EMEROOARM 12:55 → 3BNU 12:55 → SUATTDRO 16:42 → 3BNU 17:53
PROVIDERS: ADMIT Internal Medicine; ATTEND General Practice

== ENCOUNTER 2020-06-02 14:19 | Inpatient (IN) ==
[2020-06-02 15:01] LABS: Basophils # 0.1 K/mcL (0.0-0.2); Basophils % 1.2 %; Eosinophils # 0.1 K/mcL (0.0-0.6); Eosinophils % 1.2 %; Hematocrit 51.3 % (37.5-50.1); Hemoglobin 15.6 g/dL (12.9-16.9); Immature Granulocytes % 0.4 % (0-4); Lymphocytes # 2.2 K/mcL (0.6-4.6); Lymphocytes % 21.1 %; Mean Corpuscular HGB Conc 30.4 g/dL (31.6-35.5); Mean Corpuscular Volume 95.4 fL (83.0-100.0); Mean Platelet Volume 11.3 fL (9.4-12.4); Monocytes # 0.6 K/mcL (0.0-1.3); Monocytes % 5.9 %; Neutrophils # 7.3 K/mcL (1.6-8.9); Platelet Count 253 K/mcL (140-400); Red Blood Count 5.38 M/mcL (4.19-5.50); Red Cell Distribution Width 14.9 % (11.5-14.5); Segmented Neutrophils % 70.2 %; White Blood Count 10.4 K/mcL (4.3-11.1)
[2020-06-02 15:05] LABS: Estimated Average Glucose 169 mg/dl; Hemoglobin A1C 7.5 %
[2020-06-02 15:14] LABS: Alanine Aminotransferase 66 Units/L (7-52); Albumin 4.6 g/dL (3.5-5.7); Albumin/Globulin Ratio 1.1 (1.1-2.2); Alkaline Phosphatase 66 Units/L (34-104); Aspartate Amino Transferase 37 Units/L (13-39); BUN/Creatinine Ratio 60 (6-26); Bilirubin,Total 0.4 mg/dL (0.3-1.0); Blood Urea Nitrogen 62 mg/dL (8-23); Carbon Dioxide 25 mEq/L (23-29); Chloride 114 mEq/L (98-107); Globulin 4.1 g/dL (2.4-3.5); Glucose 389 mg/dL (70-105); Osmolality,Calculated 350 (280-300); Phosphorous 5.9 mg/dL (2.7-4.5); Potassium 4.2 mEq/L (3.5-5.1); Sodium 153 mEq/L (136-145); Total Protein 8.7 g/dL (6.4-8.9); eGFR For African Americans > 60 (> 60); eGFR For Non-African Americans > 60 (> 60)
[2020-06-02] MEDS: 0.9 % Sodium Chloride 1,000 ML IVC SCH (15:52)
[2020-06-02 17:09] LABS: VBG HCO3 26 mEq/L (21-27); VBG PCO2 48 mmHg (41-51); VBG PH 7.35 pH Units (7.32-7.42); VBG PO2 158 mmHg (25-50)
[2020-06-02] MEDS ORDERED: 0.9 % Sodium Chloride 1,000 ML IVC ONE (17:50)
[2020-06-02 18:12] LABS: Bilirubin,Urine Negative (Negative); Blood,Urine Negative (Negative); Clarity,Urine Clear (Clear); Color,Urine Colorless (Yellow); Glucose,Urine (UA) >=1000 mg/dL (Normal); Ketones,Urine Trace mg/dL (Negative); Leukocyte Esterase,Urine Negative (Negative); Mucus,Urine Few per lpf (None-Few); Nitrite,Urine Negative (Negative); Protein,Urine Negative (Neg-Trace); Specific Gravity,Urine 1.028 (1.010-1.025); Urobilinogen,Urine Normal (Normal); WBC,Urine 0-3 per hpf (0-3)
[2020-06-02] MEDS ORDERED: Ondansetron ODT 4 MG TAB.RAPDIS SL PRN (19:47)
[2020-06-02] MEDS ORDERED: Naloxone 0.4 MG/ML INJ IVP PRN (19:47)
[2020-06-02] MEDS ORDERED: Dextrose Gel 15 GM/37.5 ML TUBE PO PRN ×2 (19:48)
[2020-06-02] MEDS ORDERED: *HR* Dextrose 50 % in Water (Vial) 50 ML VIAL IVP PRN (19:48)
[2020-06-02] MEDS ORDERED: D5% in Water 1,000 ML IVC PRN (19:48)
[2020-06-02 21:49] LABS: BUN/Creatinine Ratio 57 (6-26); Blood Urea Nitrogen 51 mg/dL (8-23); Calcium 8.6 mg/dL (8.6-10.3); Carbon Dioxide 19 mEq/L (23-29); Chloride 124 mEq/L (98-107); Glucose 224 mg/dL (70-105); Osmolality,Calculated 345 (280-300); Potassium 4.9 mEq/L (3.5-5.1); Sodium 157 mEq/L (136-145); eGFR For African Americans > 60 (> 60); eGFR For Non-African Americans > 60 (> 60)
[2020-06-02] MEDS: Insulin LISPRO 300 UNITS/3 ML VIAL SUBQ SCH (23:05)
[2020-06-02] MEDS: Lactobacillus 1 EACH CAP.SPRINK PO SCH (23:07)
[2020-06-02] MEDS: levETIRAcetam 250 MG TABLET PO SCH (23:07)
[2020-06-03] MEDS: D5% in Water 1,000 ML IVC SCH ×2 (00:07→13:02)
[2020-06-03] MEDS: Insulin LISPRO 300 UNITS/3 ML VIAL SUBQ SCH ×7 (00:20→21:18)
[2020-06-03 00:54] LABS: Hematocrit 48.6 % (37.5-50.1); Hemoglobin 14.5 g/dL (12.9-16.9); Mean Corpuscular HGB Conc 29.8 g/dL (31.6-35.5); Mean Corpuscular Hemoglobin 29.4 pg (28.0-33.3); Mean Corpuscular Volume 98.4 fL (83.0-100.0); Mean Platelet Volume 11.2 fL (9.4-12.4); Platelet Count 238 K/mcL (140-400); Red Blood Count 4.94 M/mcL (4.19-5.50); Red Cell Distribution Width 14.8 % (11.5-14.5); White Blood Count 11.4 K/mcL (4.3-11.1)
[2020-06-03 01:15] LABS: Alanine Aminotransferase 51 Units/L (7-52); Albumin 4.2 g/dL (3.5-5.7); Albumin/Globulin Ratio 1.2 (1.1-2.2); Alkaline Phosphatase 56 Units/L (34-104); Aspartate Amino Transferase 24 Units/L (13-39); BUN/Creatinine Ratio 53 (6-26); Bilirubin,Total 0.4 mg/dL (0.3-1.0); Blood Urea Nitrogen 48 mg/dL (8-23); Calcium 9.1 mg/dL (8.6-10.3); Carbon Dioxide 24 mEq/L (23-29); Chloride 122 mEq/L (98-107); Globulin 3.6 g/dL (2.4-3.5); Glucose 219 mg/dL (70-105); Osmolality,Calculated 345 (280-300); Potassium 3.5 mEq/L (3.5-5.1); Sodium 158 mEq/L (136-145); Total Protein 7.8 g/dL (6.4-8.9); eGFR For African Americans > 60 (> 60); eGFR For Non-African Americans > 60 (> 60)
[2020-06-03] MEDS: *HR* Heparin 5,000 UNIT/ML VIAL SQ SCH ×4 (01:39→21:39)
[2020-06-03] MEDS: 0.9 % Sodium Chloride 1,000 ML IVC SCH (07:25)
[2020-06-03 07:50] LABS: BUN/Creatinine Ratio 48 (6-26); Blood Urea Nitrogen 41 mg/dL (8-23); Calcium 8.9 mg/dL (8.6-10.3); Carbon Dioxide 20 mEq/L (23-29); Chloride 122 mEq/L (98-107); Glucose 221 mg/dL (70-105); Osmolality,Calculated 333 (280-300); Sodium 153 mEq/L (136-145); eGFR For African Americans > 60 (> 60); eGFR For Non-African Americans > 60 (> 60)
[2020-06-03] MEDS: levETIRAcetam 250 MG TABLET PO SCH ×2 (10:31→21:39)
[2020-06-03] MEDS: Aspirin Enteric Coated 81 MG Tablet PO SCH (10:31)
[2020-06-03] MEDS: Lactobacillus 1 EACH CAP.SPRINK PO SCH ×2 (10:31→21:39)
[2020-06-03] MEDS: Cyanocobalamin (B-12) 1,000 MCG TABLET PO SCH (10:31)
[2020-06-03 10:43] LABS: BUN/Creatinine Ratio 45 (6-26); Blood Urea Nitrogen 39 mg/dL (8-23); Calcium 9.2 mg/dL (8.6-10.3); Carbon Dioxide 21 mEq/L (23-29); Chloride 118 mEq/L (98-107); Glucose 256 mg/dL (70-105); Osmolality,Calculated 334 (280-300); Potassium 3.7 mEq/L (3.5-5.1); Sodium 153 mEq/L (136-145); eGFR For African Americans > 60 (> 60); eGFR For Non-African Americans > 60 (> 60)
[2020-06-03 14:57] LABS: BUN/Creatinine Ratio 45 (6-26); Blood Urea Nitrogen 37 mg/dL (8-23); Calcium 9.2 mg/dL (8.6-10.3); Carbon Dioxide 25 mEq/L (23-29); Chloride 120 mEq/L (98-107); Glucose 194 mg/dL (70-105); Osmolality,Calculated 328 (280-300); Potassium 3.5 mEq/L (3.5-5.1); Sodium 152 mEq/L (136-145); eGFR For African Americans > 60 (> 60); eGFR For Non-African Americans > 60 (> 60)
[2020-06-03 18:18] LABS: BUN/Creatinine Ratio 46 (6-26); Blood Urea Nitrogen 36 mg/dL (8-23); Carbon Dioxide 26 mEq/L (23-29); Chloride 120 mEq/L (98-107); Glucose 161 mg/dL (70-105); Osmolality,Calculated 328 (280-300); Potassium 3.4 mEq/L (3.5-5.1); Sodium 153 mEq/L (136-145); eGFR For African Americans > 60 (> 60); eGFR For Non-African Americans > 60 (> 60)
[2020-06-03 19:09] LABS: BUN/Creatinine Ratio 43 (6-26); Blood Urea Nitrogen 35 mg/dL (8-23); Carbon Dioxide 26 mEq/L (23-29); Chloride 119 mEq/L (98-107); Glucose 173 mg/dL (70-105); Osmolality,Calculated 326 (280-300); Potassium 3.3 mEq/L (3.5-5.1); Sodium 152 mEq/L (136-145); eGFR For African Americans > 60 (> 60); eGFR For Non-African Americans > 60 (> 60)
[2020-06-04] MEDS: *HR* Heparin 5,000 UNIT/ML VIAL SQ SCH ×3 (05:56→20:37)
[2020-06-04 06:12] LABS: Hematocrit 45.6 % (37.5-50.1); Hemoglobin 13.8 g/dL (12.9-16.9); Mean Corpuscular HGB Conc 30.3 g/dL (31.6-35.5); Mean Corpuscular Hemoglobin 28.8 pg (28.0-33.3); Mean Corpuscular Volume 95.2 fL (83.0-100.0); Mean Platelet Volume 11.5 fL (9.4-12.4); Platelet Count 194 K/mcL (140-400); Red Blood Count 4.79 M/mcL (4.19-5.50); Red Cell Distribution Width 14.7 % (11.5-14.5); White Blood Count 9.3 K/mcL (4.3-11.1)
[2020-06-04 06:18] LABS: BUN/Creatinine Ratio 42 (6-26); Blood Urea Nitrogen 32 mg/dL (8-23); Carbon Dioxide 22 mEq/L (23-29); Chloride 117 mEq/L (98-107); Glucose 181 mg/dL (70-105); Osmolality,Calculated 321 (280-300); Potassium 4.1 mEq/L (3.5-5.1); Sodium 150 mEq/L (136-145); eGFR For African Americans > 60 (> 60); eGFR For Non-African Americans > 60 (> 60)
[2020-06-04] MEDS: Insulin LISPRO 300 UNITS/3 ML VIAL SUBQ SCH ×4 (07:52→20:59)
[2020-06-04] MEDS: Aspirin Enteric Coated 81 MG Tablet PO SCH (07:53)
[2020-06-04] MEDS: Cyanocobalamin (B-12) 1,000 MCG TABLET PO SCH (07:54)
[2020-06-04] MEDS: Lactobacillus 1 EACH CAP.SPRINK PO SCH ×2 (07:54→20:28)
[2020-06-05] MEDS: *HR* Heparin 5,000 UNIT/ML VIAL SQ SCH ×3 (05:25→21:19)
[2020-06-05 06:05] LABS: BUN/Creatinine Ratio 41 (6-26); Blood Urea Nitrogen 28 mg/dL (8-23); Calcium 9.1 mg/dL (8.6-10.3); Carbon Dioxide 26 mEq/L (23-29); Chloride 117 mEq/L (98-107); Glucose 135 mg/dL (70-105); Osmolality,Calculated 320 (280-300); Potassium 4.5 mEq/L (3.5-5.1); Sodium 151 mEq/L (136-145); eGFR For African Americans > 60 (> 60); eGFR For Non-African Americans > 60 (> 60)
[2020-06-05 06:09] LABS: Hematocrit 44.4 % (37.5-50.1); Hemoglobin 13.8 g/dL (12.9-16.9); Mean Corpuscular HGB Conc 31.1 g/dL (31.6-35.5); Mean Corpuscular Hemoglobin 29.7 pg (28.0-33.3); Mean Corpuscular Volume 95.5 fL (83.0-100.0); Mean Platelet Volume 12.4 fL (9.4-12.4); Platelet Count 192 K/mcL (140-400); Red Blood Count 4.65 M/mcL (4.19-5.50); Red Cell Distribution Width 14.5 % (11.5-14.5)
[2020-06-05] MEDS: Insulin LISPRO 300 UNITS/3 ML VIAL SUBQ SCH ×4 (08:07→21:19)
[2020-06-05] MEDS ORDERED: D5% in Water 1,000 ML IVC SCH (08:30)
[2020-06-05] MEDS: Cyanocobalamin (B-12) 1,000 MCG TABLET PO SCH (09:02)
[2020-06-05] MEDS: Aspirin Enteric Coated 81 MG Tablet PO SCH (09:02)
[2020-06-05] MEDS: Lactobacillus 1 EACH CAP.SPRINK PO SCH ×2 (09:02→21:18)
[2020-06-05] MEDS: Insulin DETEMIR 100 UNIT/ML X5UNITS SUBQ SCH (21:18)
[2020-06-05] MEDS: levETIRAcetam 250 MG TABLET PO SCH (21:19)
[2020-06-06] MEDS: *HR* Heparin 5,000 UNIT/ML VIAL SQ SCH ×3 (05:06→21:34)
[2020-06-06 06:50] LABS: Hematocrit 39.8 % (37.5-50.1); Hemoglobin 12.7 g/dL (12.9-16.9); Mean Corpuscular HGB Conc 31.9 g/dL (31.6-35.5); Mean Corpuscular Hemoglobin 29.3 pg (28.0-33.3); Mean Corpuscular Volume 91.9 fL (83.0-100.0); Mean Platelet Volume 11.9 fL (9.4-12.4); Platelet Count 185 K/mcL (140-400); Red Blood Count 4.33 M/mcL (4.19-5.50); Red Cell Distribution Width 14.1 % (11.5-14.5)
[2020-06-06] MEDS: Insulin LISPRO 300 UNITS/3 ML VIAL SUBQ SCH ×4 (09:34→21:37)
[2020-06-06] MEDS: Lactobacillus 1 EACH CAP.SPRINK PO SCH ×2 (09:35→21:33)
[2020-06-06] MEDS: Cyanocobalamin (B-12) 1,000 MCG TABLET PO SCH (09:35)
[2020-06-06] MEDS: Aspirin Enteric Coated 81 MG Tablet PO SCH (09:36)
[2020-06-06] MEDS: levETIRAcetam 250 MG TABLET PO SCH ×2 (09:36→21:34)
[2020-06-06] MEDS: Insulin DETEMIR 100 UNIT/ML X5UNITS SUBQ SCH ×2 (09:50→21:36)
[2020-06-07] MEDS: *HR* Heparin 5,000 UNIT/ML VIAL SQ SCH ×3 (05:12→21:25)
[2020-06-07 05:14] LABS: Basophils # 0.1 K/mcL (0.0-0.2); Basophils % 0.6 %; Eosinophils # 0.1 K/mcL (0.0-0.6); Eosinophils % 1.5 %; Hematocrit 41.8 % (37.5-50.1); Hemoglobin 13.2 g/dL (12.9-16.9); Immature Granulocytes % 0.3 % (0-4); Immature Platelets 8.1 % (1.1-6.1); Mean Corpuscular HGB Conc 31.6 g/dL (31.6-35.5); Mean Corpuscular Hemoglobin 28.9 pg (28.0-33.3); Mean Corpuscular Volume 91.5 fL (83.0-100.0); Mean Platelet Volume 12.2 fL (9.4-12.4); Monocytes # 0.6 K/mcL (0.0-1.3); Monocytes % 7.1 %; Neutrophils # 5.8 K/mcL (1.6-8.9); Nucleated Red Blood Cells 0.2 /100 WBC (0); Platelet Count 178 K/mcL (140-400); Red Blood Count 4.57 M/mcL (4.19-5.50); Red Cell Distribution Width 14.1 % (11.5-14.5); Segmented Neutrophils % 67.5 %; White Blood Count 8.6 K/mcL (4.3-11.1)
[2020-06-07 05:16] LABS: BUN/Creatinine Ratio 39 (6-26); Blood Urea Nitrogen 28 mg/dL (8-23); Calcium 8.9 mg/dL (8.6-10.3); Carbon Dioxide 25 mEq/L (23-29); Chloride 112 mEq/L (98-107); Glucose 159 mg/dL (70-105); Magnesium 2.4 mg/dL (1.6-2.6); Osmolality,Calculated 309 (280-300); Potassium 5.1 mEq/L (3.5-5.1); Sodium 145 mEq/L (136-145); eGFR For African Americans > 60 (> 60); eGFR For Non-African Americans > 60 (> 60)
[2020-06-07] MEDS: Insulin LISPRO 300 UNITS/3 ML VIAL SUBQ SCH ×4 (10:17→21:24)
[2020-06-07] MEDS: levETIRAcetam 250 MG TABLET PO SCH ×2 (10:18→21:22)
[2020-06-07] MEDS: Cyanocobalamin (B-12) 1,000 MCG TABLET PO SCH (10:18)
[2020-06-07] MEDS: Aspirin Enteric Coated 81 MG Tablet PO SCH (10:18)
[2020-06-07] MEDS: Lactobacillus 1 EACH CAP.SPRINK PO SCH ×2 (10:18→21:22)
[2020-06-07] MEDS: Insulin DETEMIR 100 UNIT/ML X5UNITS SUBQ SCH ×2 (10:21→21:24)
[2020-06-08] MEDS: *HR* Heparin 5,000 UNIT/ML VIAL SQ SCH ×3 (05:18→22:01)
[2020-06-08 05:43] LABS: BUN/Creatinine Ratio 40 (6-26); Blood Urea Nitrogen 26 mg/dL (8-23); Calcium 9.2 mg/dL (8.6-10.3); Carbon Dioxide 29 mEq/L (23-29); Chloride 110 mEq/L (98-107); Glucose 164 mg/dL (70-105); Magnesium 2.1 mg/dL (1.6-2.6); Osmolality,Calculated 310 (280-300); Phosphorous 3.8 mg/dL (2.7-4.5); Potassium 4.9 mEq/L (3.5-5.1); Sodium 146 mEq/L (136-145); eGFR For African Americans > 60 (> 60); eGFR For Non-African Americans > 60 (> 60)
[2020-06-08] MEDS: Insulin LISPRO 300 UNITS/3 ML VIAL SUBQ SCH ×4 (09:36→21:57)
[2020-06-08] MEDS: levETIRAcetam 250 MG TABLET PO SCH ×2 (09:36→21:56)
[2020-06-08] MEDS: Lactobacillus 1 EACH CAP.SPRINK PO SCH ×2 (09:37→21:57)
[2020-06-08] MEDS: Cyanocobalamin (B-12) 1,000 MCG TABLET PO SCH (09:37)
[2020-06-08] MEDS: Aspirin Enteric Coated 81 MG Tablet PO SCH (09:37)
[2020-06-08] MEDS: Insulin DETEMIR 100 UNIT/ML X5UNITS SUBQ SCH ×2 (09:41→22:00)
[2020-06-09 04:47] LABS: BUN/Creatinine Ratio 36 (6-26); Blood Urea Nitrogen 25 mg/dL (8-23); Calcium 9.6 mg/dL (8.6-10.3); Carbon Dioxide 29 mEq/L (23-29); Chloride 106 mEq/L (98-107); Glucose 251 mg/dL (70-105); Magnesium 2.2 mg/dL (1.6-2.6); Osmolality,Calculated 315 (280-300); Phosphorous 3.7 mg/dL (2.7-4.5); Potassium 3.9 mEq/L (3.5-5.1); Sodium 146 mEq/L (136-145); eGFR For African Americans > 60 (> 60); eGFR For Non-African Americans > 60 (> 60)
[2020-06-09] MEDS: *HR* Heparin 5,000 UNIT/ML VIAL SQ SCH ×3 (05:20→21:54)
[2020-06-09] MEDS: Insulin DETEMIR 100 UNIT/ML X5UNITS SUBQ SCH ×2 (08:15→21:56)
[2020-06-09] MEDS: Insulin LISPRO 300 UNITS/3 ML VIAL SUBQ SCH ×6 (08:15→21:55)
[2020-06-09] MEDS: Aspirin Enteric Coated 81 MG Tablet PO SCH (08:16)
[2020-06-09] MEDS: Lactobacillus 1 EACH CAP.SPRINK PO SCH ×2 (08:16→21:55)
[2020-06-09] MEDS: Cyanocobalamin (B-12) 1,000 MCG TABLET PO SCH (08:16)
[2020-06-09] MEDS: levETIRAcetam 250 MG TABLET PO SCH ×2 (08:17→21:55)
[2020-06-10 07:48] LABS: BUN/Creatinine Ratio 35 (6-26); Blood Urea Nitrogen 26 mg/dL (8-23); Calcium 9.4 mg/dL (8.6-10.3); Carbon Dioxide 27 mEq/L (23-29); Chloride 108 mEq/L (98-107); Glucose 173 mg/dL (70-105); Magnesium 2.1 mg/dL (1.6-2.6); Osmolality,Calculated 311 (280-300); Phosphorous 4.3 mg/dL (2.7-4.5); Potassium 3.7 mEq/L (3.5-5.1); Sodium 146 mEq/L (136-145); eGFR For African Americans > 60 (> 60); eGFR For Non-African Americans > 60 (> 60)
[2020-06-10] MEDS: Insulin DETEMIR 100 UNIT/ML X5UNITS SUBQ SCH ×2 (09:38→21:22)
[2020-06-10] MEDS: Insulin LISPRO 300 UNITS/3 ML VIAL SUBQ SCH ×7 (09:38→21:22)
[2020-06-10] MEDS: Cyanocobalamin (B-12) 1,000 MCG TABLET PO SCH (09:39)
[2020-06-10] MEDS: *HR* Heparin 5,000 UNIT/ML VIAL SQ SCH ×3 (09:39→21:23)
[2020-06-10] MEDS: Aspirin Enteric Coated 81 MG Tablet PO SCH (09:40)
[2020-06-10] MEDS: levETIRAcetam 250 MG TABLET PO SCH ×2 (09:40→21:21)
[2020-06-10] MEDS: Lactobacillus 1 EACH CAP.SPRINK PO SCH ×2 (09:40→21:21)
[2020-06-10] MEDS ORDERED: Furosemide 20 MG/2 ML VIAL IVP ONE (15:21)
[2020-06-10 15:50] LABS: Hematocrit 43.5 % (37.5-50.1); Hemoglobin 13.6 g/dL (12.9-16.9); Mean Corpuscular HGB Conc 31.3 g/dL (31.6-35.5); Mean Corpuscular Hemoglobin 29.2 pg (28.0-33.3); Mean Corpuscular Volume 93.5 fL (83.0-100.0); Mean Platelet Volume 11.7 fL (9.4-12.4); Platelet Count 232 K/mcL (140-400); Red Blood Count 4.65 M/mcL (4.19-5.50); Red Cell Distribution Width 14.3 % (11.5-14.5); White Blood Count 9.4 K/mcL (4.3-11.1)
[2020-06-10] MEDS: Ipratropium/Albuterol Neb 3 ML IH SCH ×3 (16:18→23:25)
[2020-06-10 18:24] LABS: Adenovirus Not Detected (Not Detect); Bordetella Pertussis Not Detected (Not Detect); Chlamydophila pneumoniae Not Detected (Not Detect); Coronavirus 229E Not Detected (Not Detect); Coronavirus HKU1 Not Detected (Not Detect); Coronavirus NL63 Not Detected (Not Detect); Coronavirus OC43 Not Detected (Not Detect); Human Metapneumovirus Not Detected (Not Detect); Human Rhinovirus/Enterovirus Not Detected (Not Detect); Influenza A Subtype 2009 H1 Not Detected (Not Detect); Influenza B Not Detected (Not Detect); Mycoplasma pneumoniae Not Detected (Not Detect); Parainfluenza Virus 1 Not Detected (Not Detect); Parainfluenza Virus 2 Not Detected (Not Detect); Parainfluenza Virus 3 Not Detected (Not Detect); Parainfluenza Virus 4 Not Detected (Not Detect); Respiratory Syncytial Virus Not Detected (Not Detect); SARS-CoV-2 Not Detected (Not Detect)
[2020-06-10 19:25] LABS: Bacteria,Urine Few per hpf (None-Few); Bilirubin,Urine Negative (Negative); Blood,Urine Moderate (Negative); Budding Yeast,Urine Many per hpf (None Seen); Clarity,Urine Turbid (Clear); Color,Urine Yellow (Yellow); Glucose,Urine (UA) >=1000 mg/dL (Normal); Ketones,Urine Negative (Negative); Leukocyte Esterase,Urine Large (Negative); Mucus,Urine Few per lpf (None-Few); Nitrite,Urine Negative (Negative); Protein,Urine 30 mg/dL (Neg-Trace); RBC,Urine TNTC per hpf (0-3); Specific Gravity,Urine 1.028 (1.010-1.025); Urobilinogen,Urine Normal (Normal); WBC,Urine 50-100 per hpf (0-3)
[2020-06-11] MEDS: Piperacillin/Tazobactam 3.375 GM in 0.9 % Sodium Chloride Mini Bag 100 ML IVPB SCH ×4 (00:35→23:59)
[2020-06-11] MEDS: Ipratropium/Albuterol Neb 3 ML IH SCH ×5 (03:34→20:36)
[2020-06-11] MEDS: *HR* Heparin 5,000 UNIT/ML VIAL SQ SCH ×3 (05:57→21:25)
[2020-06-11] MEDS: Insulin LISPRO 300 UNITS/3 ML VIAL SUBQ SCH ×8 (08:13→23:59)
[2020-06-11] MEDS: Insulin DETEMIR 100 UNIT/ML X5UNITS SUBQ SCH ×2 (08:13→21:30)
[2020-06-11] MEDS: Aspirin Enteric Coated 81 MG Tablet PO SCH (08:14)
[2020-06-11] MEDS: Cyanocobalamin (B-12) 1,000 MCG TABLET PO SCH (08:14)
[2020-06-11] MEDS: levETIRAcetam 250 MG TABLET PO SCH ×2 (08:15→20:39)
[2020-06-11] MEDS: Lactobacillus 1 EACH CAP.SPRINK PO SCH ×2 (08:15→20:39)
[2020-06-11 08:36] LABS: BUN/Creatinine Ratio 38 (6-26); Blood Urea Nitrogen 36 mg/dL (8-23); Calcium 9.6 mg/dL (8.6-10.3); Carbon Dioxide 31 mEq/L (23-29); Chloride 107 mEq/L (98-107); Glucose 223 mg/dL (70-105); Magnesium 2.3 mg/dL (1.6-2.6); Osmolality,Calculated 323 (280-300); Phosphorous 5.2 mg/dL (2.7-4.5); Potassium 3.5 mEq/L (3.5-5.1); Sodium 149 mEq/L (136-145); eGFR For African Americans > 60 (> 60); eGFR For Non-African Americans > 60 (> 60)
[2020-06-11] MEDS ORDERED: methylPREDNISolone 125 MG/2 ML VIAL IVP ONE (09:08)
[2020-06-11 09:44] LABS: ABG Base Excess 4 mEq/L (-2 to 3); ABG HCO3 31 mEq/L (21-27); ABG Oxygen Saturation 93 % (95-98); ABG PCO2 52 mmHg (35-45); ABG PH 7.38 pH Units (7.32-7.45); ABG PO2 69 mmHg (85-104); ABG TCO2 33 mEq/L (20-26)
[2020-06-11] MEDS ORDERED: E-Z-HD (BARIUM SULF) SUSPENSION PO ONE (14:03)
[2020-06-11] MEDS ORDERED: E-Z-PAQUE (BARIUM SULF) SUSP 1 BOTTLE PO ONE (14:03)
[2020-06-11] MEDS: MethylPREDNISolone 40 MG/ML VIAL IVP SCH (16:19)
[2020-06-11] MEDS ORDERED: Furosemide 40 MG/4 ML VIAL IVP ONE (16:46)
[2020-06-11] MEDS ORDERED: Levalbuterol Neb 1.25 MG/3 ML ONE (17:13)
[2020-06-12] MEDS: Ipratropium/Albuterol Neb 3 ML IH SCH ×4 (00:22→11:28)
[2020-06-12 03:32] LABS: Basophils % 0.1 %; Hematocrit 42.1 % (37.5-50.1); Immature Granulocytes % 0.4 % (0-4); Lymphocytes # 0.7 K/mcL (0.6-4.6); Lymphocytes % 7.8 %; Mean Corpuscular HGB Conc 30.9 g/dL (31.6-35.5); Mean Corpuscular Hemoglobin 29.3 pg (28.0-33.3); Mean Platelet Volume 10.9 fL (9.4-12.4); Monocytes # 0.8 K/mcL (0.0-1.3); Monocytes % 8.6 %; Neutrophils # 7.8 K/mcL (1.6-8.9); Platelet Count 314 K/mcL (140-400); Red Blood Count 4.43 M/mcL (4.19-5.50); Red Cell Distribution Width 14.6 % (11.5-14.5); Segmented Neutrophils % 83.1 %; White Blood Count 9.4 K/mcL (4.3-11.1)
[2020-06-12 03:33] LABS: VBG Ionized Calcium 1.09 mmol/L (1.15-1.35)
[2020-06-12 03:50] LABS: Magnesium 2.4 mg/dL (1.6-2.6); Phosphorous 4.2 mg/dL (2.7-4.5)
[2020-06-12 03:51] LABS: Alanine Aminotransferase 40 Units/L (7-52); Albumin 3.7 g/dL (3.5-5.7); Albumin/Globulin Ratio 0.9 (1.1-2.2); Alkaline Phosphatase 54 Units/L (34-104); Aspartate Amino Transferase 20 Units/L (13-39); BUN/Creatinine Ratio 43 (6-26); Bilirubin,Indirect 0.4 mg/dL (0.0-1.0); Bilirubin,Total 0.4 mg/dL (0.3-1.0); Blood Urea Nitrogen 43 mg/dL (8-23); Calcium 9.2 mg/dL (8.6-10.3); Carbon Dioxide 31 mEq/L (23-29); Chloride 109 mEq/L (98-107); Globulin 4.1 g/dL (2.4-3.5); Glucose 278 mg/dL (70-105); Osmolality,Calculated 331 (280-300); Potassium 3.6 mEq/L (3.5-5.1); Sodium 150 mEq/L (136-145); Total Protein 7.8 g/dL (6.4-8.9); eGFR For African Americans > 60 (> 60); eGFR For Non-African Americans > 60 (> 60)
[2020-06-12 04:06] LABS: Platelet Estimate Normal (Normal)
[2020-06-12] MEDS ORDERED: Calcium Gluconate 1gm/50mL 1 GM/50 ML BAG IVPB PRN (04:12)
[2020-06-12] MEDS: Insulin LISPRO 300 UNITS/3 ML VIAL SUBQ SCH ×4 (05:16→18:17)
[2020-06-12] MEDS: *HR* Heparin 5,000 UNIT/ML VIAL SQ SCH ×3 (05:16→21:28)
[2020-06-12] MEDS ORDERED: MethylPREDNISolone 40 MG/ML VIAL IVP SCH (06:00)
[2020-06-12] MEDS: levETIRAcetam 250 MG TABLET PO SCH (08:04)
[2020-06-12] MEDS: Aspirin Enteric Coated 81 MG Tablet PO SCH (08:04)
[2020-06-12] MEDS: Lactobacillus 1 EACH CAP.SPRINK PO SCH (08:04)
[2020-06-12] MEDS: Cyanocobalamin (B-12) 1,000 MCG TABLET PO SCH (08:04)
[2020-06-12] MEDS: MethylPREDNISolone 40 MG/ML VIAL IVP SCH ×2 (08:21)
[2020-06-12] MEDS: Piperacillin/Tazobactam 3.375 GM in 0.9 % Sodium Chloride Mini Bag 100 ML IVPB SCH ×2 (08:21→17:09)
[2020-06-12] MEDS ORDERED: *HR* Dextrose 50 % in Water (Vial) 50 ML VIAL IVP PRN (11:52)
[2020-06-12] MEDS ORDERED: Ondansetron ODT 4 MG TAB.RAPDIS SL PRN (11:52)
[2020-06-12] MEDS ORDERED: Dextrose Gel 15 GM/37.5 ML TUBE PO PRN ×2 (11:52)
[2020-06-12] MEDS ORDERED: Naloxone 0.4 MG/ML INJ IVP PRN (11:52)
[2020-06-12] MEDS ORDERED: D5% in Water 1,000 ML IVC PRN (11:52)
[2020-06-12] MEDS ORDERED: Insulin LISPRO 300 UNITS/3 ML VIAL SUBQ SCH (12:00)
[2020-06-12] MEDS ORDERED: Ipratropium/Albuterol Neb 3 ML IH SCH (12:00)
[2020-06-12] MEDS ORDERED: *HR* Metoprolol 5 MG/5 ML VIAL IVP SCH ×2 (12:07→18:00)
[2020-06-12] MEDS ORDERED: *HR* Metoprolol 5 MG/5 ML VIAL IVP ONE ×3 (12:08→18:00)
[2020-06-12] MEDS ORDERED: Furosemide 20 MG/2 ML VIAL IVP ONE ×3 (12:41→16:00)
[2020-06-12] MEDS ORDERED: Levalbuterol Neb 0.63 MG/3 ML IH SCH (16:00)
[2020-06-12 16:46] LABS: BUN/Creatinine Ratio 43 (6-26); Blood Urea Nitrogen 52 mg/dL (8-23); Calcium 9.3 mg/dL (8.6-10.3); Carbon Dioxide 28 mEq/L (23-29); Chloride 109 mEq/L (98-107); Creatine Kinase 90 Units/L (30-223); Glucose 268 mg/dL (70-105); Osmolality,Calculated 333 (280-300); Potassium 4.2 mEq/L (3.5-5.1); Sodium 150 mEq/L (136-145); Uric Acid 6.7 mg/dL (2.3-7.6); eGFR For African Americans > 60 (> 60); eGFR For Non-African Americans > 60 (> 60)
[2020-06-12 16:58] LABS: Sodium, Urine 99.8 mEq/L
[2020-06-12] MEDS ORDERED: Levalbuterol Neb 0.63 MG/3 ML IH PRN (18:02)
[2020-06-13] MEDS: *HR* Metoprolol 5 MG/5 ML VIAL IVP SCH ×5 (00:54→18:01)
[2020-06-13] MEDS: Insulin LISPRO 300 UNITS/3 ML VIAL SUBQ SCH ×4 (00:55→18:00)
[2020-06-13] MEDS: Piperacillin/Tazobactam 3.375 GM in 0.9 % Sodium Chloride Mini Bag 100 ML IVPB SCH ×3 (00:55→17:59)
[2020-06-13] MEDS: *HR* Heparin 5,000 UNIT/ML VIAL SQ SCH ×3 (05:20→21:17)
[2020-06-13] MEDS ORDERED: MethylPREDNISolone 40 MG/ML VIAL IVP SCH (09:00)
[2020-06-13] MEDS ORDERED: Furosemide 20 MG/2 ML VIAL IVP ONE (14:14)
[2020-06-13 16:48] LABS: VBG Ionized Calcium 1.05 mmol/L (1.15-1.35)
[2020-06-13 16:53] LABS: Basophils % 0.2 %; Hematocrit 46.2 % (37.5-50.1); Hemoglobin 13.7 g/dL (12.9-16.9); Immature Granulocytes % 0.5 % (0-4); Lymphocytes # 1.4 K/mcL (0.6-4.6); Lymphocytes % 14.6 %; Mean Corpuscular HGB Conc 29.7 g/dL (31.6-35.5); Mean Corpuscular Hemoglobin 28.9 pg (28.0-33.3); Mean Corpuscular Volume 97.5 fL (83.0-100.0); Mean Platelet Volume 10.9 fL (9.4-12.4); Monocytes # 0.5 K/mcL (0.0-1.3); Monocytes % 5.4 %; Neutrophils # 7.8 K/mcL (1.6-8.9); Platelet Count 296 K/mcL (140-400); Red Blood Count 4.74 M/mcL (4.19-5.50); Red Cell Distribution Width 14.8 % (11.5-14.5); Segmented Neutrophils % 79.3 %; White Blood Count 9.9 K/mcL (4.3-11.1)
[2020-06-13 17:11] LABS: BUN/Creatinine Ratio 56 (6-26); Blood Urea Nitrogen 54 mg/dL (8-23); Calcium 9.3 mg/dL (8.6-10.3); Carbon Dioxide 27 mEq/L (23-29); Chloride 112 mEq/L (98-107); Glucose 192 mg/dL (70-105); Magnesium 2.6 mg/dL (1.6-2.6); Osmolality,Calculated 336 (280-300); Phosphorous 4.3 mg/dL (2.7-4.5); Potassium 4.6 mEq/L (3.5-5.1); Sodium 153 mEq/L (136-145); eGFR For African Americans > 60 (> 60); eGFR For Non-African Americans > 60 (> 60)
[2020-06-13] MEDS ORDERED: Naloxone 0.4 MG/ML INJ IVP PRN (19:49)
[2020-06-13] MEDS ORDERED: Levalbuterol Neb 0.63 MG/3 ML IH PRN (19:49)
[2020-06-13] MEDS ORDERED: *HR* Dextrose 50 % in Water (Vial) 50 ML VIAL IVP PRN (19:49)
[2020-06-13] MEDS ORDERED: Dextrose Gel 15 GM/37.5 ML TUBE PO PRN ×2 (19:49)
[2020-06-13] MEDS ORDERED: D5% in Water 1,000 ML IVC PRN (19:49)
[2020-06-13] MEDS ORDERED: Ondansetron ODT 4 MG TAB.RAPDIS SL PRN (19:49)
[2020-06-14] MEDS: Insulin LISPRO 300 UNITS/3 ML VIAL SUBQ SCH ×4 (02:07→17:37)
[2020-06-14] MEDS: *HR* Metoprolol 5 MG/5 ML VIAL IVP SCH ×4 (02:18→17:31)
[2020-06-14] MEDS: Piperacillin/Tazobactam 3.375 GM in 0.9 % Sodium Chloride Mini Bag 100 ML IVPB SCH ×3 (02:22→16:39)
[2020-06-14 04:42] LABS: Basophils % 0.3 %; Eosinophils % 0.2 %; Hematocrit 42.9 % (37.5-50.1); Hemoglobin 12.9 g/dL (12.9-16.9); Immature Granulocytes % 0.4 % (0-4); Lymphocytes % 19.2 %; Mean Corpuscular HGB Conc 30.1 g/dL (31.6-35.5); Mean Corpuscular Hemoglobin 29.5 pg (28.0-33.3); Mean Corpuscular Volume 98.2 fL (83.0-100.0); Mean Platelet Volume 10.9 fL (9.4-12.4); Monocytes # 0.9 K/mcL (0.0-1.3); Monocytes % 8.8 %; Neutrophils # 7.3 K/mcL (1.6-8.9); Platelet Count 325 K/mcL (140-400); Red Blood Count 4.37 M/mcL (4.19-5.50); Red Cell Distribution Width 14.6 % (11.5-14.5); Segmented Neutrophils % 71.1 %; White Blood Count 10.3 K/mcL (4.3-11.1)
[2020-06-14 05:03] LABS: BUN/Creatinine Ratio 59 (6-26); Blood Urea Nitrogen 58 mg/dL (8-23); Calcium 9.1 mg/dL (8.6-10.3); Carbon Dioxide 27 mEq/L (23-29); Chloride 114 mEq/L (98-107); Glucose 213 mg/dL (70-105); Osmolality,Calculated 343 (280-300); Potassium 3.7 mEq/L (3.5-5.1); Sodium 155 mEq/L (136-145); eGFR For African Americans > 60 (> 60); eGFR For Non-African Americans > 60 (> 60)
[2020-06-14] MEDS: *HR* Heparin 5,000 UNIT/ML VIAL SQ SCH ×3 (05:35→23:24)
[2020-06-14] MEDS: Insulin DETEMIR 100 UNIT/ML X5UNITS SUBQ SCH (06:32)
[2020-06-14] MEDS ORDERED: Ringers Solution, Lactated 1,000 ML IVC ONE (09:19)
[2020-06-14] MEDS ORDERED: Ringers Solution, Lactated 1,000 ML ONE (09:20)
[2020-06-14] MEDS ORDERED: Isovue-370 500 ML BOTTLE IVP ONE (09:43)
[2020-06-14] MEDS: MethylPREDNISolone 40 MG/ML VIAL IVP SCH (09:46)
[2020-06-14 09:59] LABS: Basophils # 0.1 K/mcL (0.0-0.2); Basophils % 0.5 %; Eosinophils % 0.1 %; Hematocrit 46.1 % (37.5-50.1); Hemoglobin 13.7 g/dL (12.9-16.9); Immature Granulocytes % 1.8 % (0-4); Lymphocytes # 0.6 K/mcL (0.6-4.6); Lymphocytes % 5.4 %; Mean Corpuscular HGB Conc 29.7 g/dL (31.6-35.5); Mean Corpuscular Hemoglobin 29.1 pg (28.0-33.3); Mean Corpuscular Volume 97.9 fL (83.0-100.0); Mean Platelet Volume 10.9 fL (9.4-12.4); Monocytes # 0.4 K/mcL (0.0-1.3); Monocytes % 3.1 %; Platelet Count 357 K/mcL (140-400); Red Blood Count 4.71 M/mcL (4.19-5.50); Red Cell Distribution Width 14.9 % (11.5-14.5); Segmented Neutrophils % 89.1 %; White Blood Count 11.2 K/mcL (4.3-11.1)
[2020-06-14] MEDS ORDERED: D5% in Water 1,000 ML IVC SCH (10:00)
[2020-06-14 10:14] LABS: INR 1.1; Prothrombin Time 12.8 Seconds (9.4-12.1)
[2020-06-14 10:17] LABS: Activated Partial Thrombo Time 27.7 Seconds (26.0-36.0)
[2020-06-14 10:36] LABS: Anisocytosis 1+ (Not Present); Platelet Estimate Normal (Normal)
[2020-06-14 10:40] LABS: Alanine Aminotransferase 2999 Units/L (7-52); Albumin 3.7 g/dL (3.5-5.7); Albumin/Globulin Ratio 0.9 (1.1-2.2); Alkaline Phosphatase 71 Units/L (34-104); Aspartate Amino Transferase 2559 Units/L (13-39); BUN/Creatinine Ratio 46 (6-26); Blood Urea Nitrogen 66 mg/dL (8-23); Calcium 9.4 mg/dL (8.6-10.3); Carbon Dioxide 27 mEq/L (23-29); Chloride 114 mEq/L (98-107); Globulin 3.9 g/dL (2.4-3.5); Glucose 150 mg/dL (70-105); Osmolality,Calculated 352 (280-300); Sodium 160 mEq/L (136-145); Total Protein 7.6 g/dL (6.4-8.9); Troponin I 0.18 ng/mL (< 0.04); eGFR For African Americans > 60 (> 60); eGFR For Non-African Americans 50 (> 60)
[2020-06-14 11:15] LABS: ABG Base Excess -1 mEq/L (-2 to 3); ABG HCO3 26 mEq/L (21-27); ABG Oxygen Saturation 92 % (95-98); ABG PCO2 48 mmHg (35-45); ABG PH 7.34 pH Units (7.32-7.45); ABG PO2 69 mmHg (85-104); ABG TCO2 27 mEq/L (20-26); Blood Gas Modality AF; Blood Gas VT 480 cc
[2020-06-14] MEDS ORDERED: Dexmedetomidine HCl 400 MCG/100 ML MLS IVC ONE (12:11)
[2020-06-14] MEDS: Midazolam HCl 50 MG/100 ML IV.SOLN IVC SCH ×2 (12:23→21:29)
[2020-06-14] MEDS: Norepinephrine 4 MG/254 ML IV.SOLN IVC SCH (12:24)
[2020-06-14] MEDS: Dexmedetomidine HCl 400 MCG/100 ML MLS IVC SCH (12:34)
[2020-06-14 12:40] LABS: BUN/Creatinine Ratio 42 (6-26); Blood Urea Nitrogen 61 mg/dL (8-23); Carbon Dioxide 27 mEq/L (23-29); Chloride 112 mEq/L (98-107); Glucose 254 mg/dL (70-105); Osmolality,Calculated 350 (280-300); Potassium 4.1 mEq/L (3.5-5.1); Sodium 157 mEq/L (136-145); eGFR For African Americans > 60 (> 60); eGFR For Non-African Americans 50 (> 60)
[2020-06-14] MEDS: FentaNYL (PF) 1,000 MCG/100 ML IV.SOLN IVC SCH ×2 (13:12→21:30)
[2020-06-14 16:20] LABS: Hemoglobin 12.5 g/dL (12.9-16.9); Mean Corpuscular HGB Conc 30.5 g/dL (31.6-35.5); Mean Corpuscular Hemoglobin 28.8 pg (28.0-33.3); Mean Corpuscular Volume 94.5 fL (83.0-100.0); Mean Platelet Volume 10.9 fL (9.4-12.4); Monocytes # 0.8 K/mcL (0.0-1.3); Platelet Count 277 K/mcL (140-400); Red Blood Count 4.34 M/mcL (4.19-5.50); Red Cell Distribution Width 14.7 % (11.5-14.5); White Blood Count 13.5 K/mcL (4.3-11.1)
[2020-06-14 16:33] LABS: INR 1.2; Prothrombin Time 13.7 Seconds (9.4-12.1)
[2020-06-14 16:36] LABS: Activated Partial Thrombo Time 30.5 Seconds (26.0-36.0)
[2020-06-14 16:42] LABS: Albumin 3.4 g/dL (3.5-5.7); Alkaline Phosphatase 55 Units/L (34-104); BUN/Creatinine Ratio 46 (6-26); Bilirubin,Direct 0.1 mg/dL (0.0-0.2); Bilirubin,Indirect 0.6 mg/dL (0.0-1.0); Bilirubin,Total 0.7 mg/dL (0.3-1.0); Blood Urea Nitrogen 60 mg/dL (8-23); Calcium 8.8 mg/dL (8.6-10.3); Carbon Dioxide 29 mEq/L (23-29); Chloride 114 mEq/L (98-107); Globulin 3.5 g/dL (2.4-3.5); Glucose 199 mg/dL (70-105); Magnesium 2.8 mg/dL (1.6-2.6); Osmolality,Calculated 344 (280-300); Phosphorous 4.8 mg/dL (2.7-4.5); Potassium 3.8 mEq/L (3.5-5.1); Sodium 156 mEq/L (136-145); Total Protein 6.9 g/dL (6.4-8.9); Troponin I 1.29 ng/mL (< 0.04); eGFR For African Americans > 60 (> 60); eGFR For Non-African Americans 56 (> 60)
[2020-06-14 16:53] LABS: Lymphocytes # 1.6 K/mcL (0.6-4.6); Neutrophils # 11.1 K/mcL (1.6-8.9)
[2020-06-14] MEDS ORDERED: Artificial Tears SOLN 15 ML BOTTLE BOTH EYES PRN (16:53)
[2020-06-14 16:54] LABS: Platelet Estimate Normal (Normal)
[2020-06-14 17:06] LABS: Alanine Aminotransferase 2499 Units/L (7-52); Aspartate Amino Transferase 2351 Units/L (13-39)
[2020-06-14] MEDS ORDERED: Perflutren Lipid Microsphere 1.3 ML in 0.9 % Sodium Chloride 8.7 ML IVP PRN (17:14)
[2020-06-14] MEDS: Pantoprazole 40 MG VIAL IVP SCH (17:33)
[2020-06-14] MEDS: Artificial Tears SOLN 15 ML BOTTLE BOTH EYES SCH (20:10)
[2020-06-14] MEDS: Chlorhexidine Rinse 15 ML MOUTHWASH MM SCH (20:10)
[2020-06-14 20:37] LABS: Hematocrit 39.9 % (37.5-50.1); Hemoglobin 12.2 g/dL (12.9-16.9)
[2020-06-14 22:15] LABS: Alanine Aminotransferase 2369 Units/L (7-52); Albumin 3.2 g/dL (3.5-5.7); Albumin/Globulin Ratio 0.9 (1.1-2.2); Alkaline Phosphatase 50 Units/L (34-104); Aspartate Amino Transferase 2199 Units/L (13-39); BUN/Creatinine Ratio 47 (6-26); Bilirubin,Direct 0.2 mg/dL (0.0-0.2); Bilirubin,Indirect 0.5 mg/dL (0.0-1.0); Bilirubin,Total 0.7 mg/dL (0.3-1.0); Blood Urea Nitrogen 62 mg/dL (8-23); Calcium 8.5 mg/dL (8.6-10.3); Carbon Dioxide 27 mEq/L (23-29); Chloride 116 mEq/L (98-107); Globulin 3.4 g/dL (2.4-3.5); Glucose 147 mg/dL (70-105); Osmolality,Calculated 342 (280-300); Potassium 3.1 mEq/L (3.5-5.1); Sodium 156 mEq/L (136-145); Total Protein 6.6 g/dL (6.4-8.9); eGFR For African Americans > 60 (> 60); eGFR For Non-African Americans 55 (> 60)
[2020-06-15] MEDS: Piperacillin/Tazobactam 3.375 GM in 0.9 % Sodium Chloride Mini Bag 100 ML IVPB SCH ×3 (00:09→16:10)
[2020-06-15] MEDS: Artificial Tears SOLN 15 ML BOTTLE BOTH EYES SCH ×6 (00:47→19:48)
[2020-06-15] MEDS: Insulin LISPRO 300 UNITS/3 ML VIAL SUBQ SCH ×4 (00:47→18:06)
[2020-06-15] MEDS: *HR* Metoprolol 5 MG/5 ML VIAL IVP SCH ×4 (00:47→17:44)
[2020-06-15] MEDS: Norepinephrine 4 MG/254 ML IV.SOLN IVC SCH ×2 (01:50→18:25)
[2020-06-15 02:39] LABS: VBG Ionized Calcium 1.03 mmol/L (1.15-1.35)
[2020-06-15 02:40] LABS: Hematocrit 37.9 % (37.5-50.1); Hemoglobin 11.6 g/dL (12.9-16.9); Mean Corpuscular HGB Conc 30.6 g/dL (31.6-35.5); Mean Corpuscular Hemoglobin 28.6 pg (28.0-33.3); Mean Corpuscular Volume 93.6 fL (83.0-100.0); Mean Platelet Volume 10.9 fL (9.4-12.4); Platelet Count 289 K/mcL (140-400); Red Blood Count 4.05 M/mcL (4.19-5.50); White Blood Count 13.4 K/mcL (4.3-11.1)
[2020-06-15 03:24] LABS: Alanine Aminotransferase 2133 Units/L (7-52); Albumin 3.1 g/dL (3.5-5.7); Albumin/Globulin Ratio 0.9 (1.1-2.2); Alkaline Phosphatase 55 Units/L (34-104); Aspartate Amino Transferase 1731 Units/L (13-39); BUN/Creatinine Ratio 52 (6-26); Bilirubin,Direct 0.2 mg/dL (0.0-0.2); Bilirubin,Indirect 0.7 mg/dL (0.0-1.0); Bilirubin,Total 0.9 mg/dL (0.3-1.0); Blood Urea Nitrogen 65 mg/dL (8-23); Calcium 8.4 mg/dL (8.6-10.3); Carbon Dioxide 23 mEq/L (23-29); Chloride 116 mEq/L (98-107); Globulin 3.3 g/dL (2.4-3.5); Glucose 172 mg/dL (70-105); Magnesium 2.5 mg/dL (1.6-2.6); Osmolality,Calculated 345 (280-300); Phosphorous 1.9 mg/dL (2.7-4.5); Potassium 3.5 mEq/L (3.5-5.1); Sodium 156 mEq/L (136-145); Total Protein 6.4 g/dL (6.4-8.9); eGFR For African Americans > 60 (> 60); eGFR For Non-African Americans 59 (> 60)
[2020-06-15] MEDS: Calcium Gluconate 1gm/50mL 1 GM/50 ML BAG IVPB PRN ×2 (04:29→18:12)
[2020-06-15 04:33] LABS: ABG Base Excess -1 mEq/L (-2 to 3); ABG HCO3 21 mEq/L (21-27); ABG Oxygen Saturation 99 % (95-98); ABG PCO2 27 mmHg (35-45); ABG PH 7.51 pH Units (7.32-7.45); ABG PO2 123 mmHg (85-104); ABG TCO2 22 mEq/L (20-26); Blood Gas Modality ASSIST CONTROL; Blood Gas VT 450 cc
[2020-06-15] MEDS: *HR* Heparin 5,000 UNIT/ML VIAL SQ SCH ×4 (05:35→22:13)
[2020-06-15] MEDS: FentaNYL (PF) 1,000 MCG/100 ML IV.SOLN IVC SCH ×2 (06:31→14:48)
[2020-06-15 06:56] LABS: Alanine Aminotransferase 1942 Units/L (7-52); Albumin 3.1 g/dL (3.5-5.7); Alkaline Phosphatase 55 Units/L (34-104); Aspartate Amino Transferase 1349 Units/L (13-39); BUN/Creatinine Ratio 50 (6-26); Bilirubin,Direct 0.2 mg/dL (0.0-0.2); Bilirubin,Indirect 0.7 mg/dL (0.0-1.0); Bilirubin,Total 0.9 mg/dL (0.3-1.0); Blood Urea Nitrogen 72 mg/dL (8-23); Calcium 8.8 mg/dL (8.6-10.3); Carbon Dioxide 20 mEq/L (23-29); Chloride 116 mEq/L (98-107); Globulin 3.1 g/dL (2.4-3.5); Glucose 216 mg/dL (70-105); Osmolality,Calculated 346 (280-300); Phosphorous 2.7 mg/dL (2.7-4.5); Potassium 3.7 mEq/L (3.5-5.1); Sodium 154 mEq/L (136-145); Total Protein 6.2 g/dL (6.4-8.9); eGFR For African Americans > 60 (> 60); eGFR For Non-African Americans 50 (> 60)
[2020-06-15] MEDS: Pantoprazole 40 MG VIAL IVP SCH (07:52)
[2020-06-15] MEDS: MethylPREDNISolone 40 MG/ML VIAL IVP SCH (07:52)
[2020-06-15] MEDS: Chlorhexidine Rinse 15 ML MOUTHWASH MM SCH ×2 (07:52→19:48)
[2020-06-15] MEDS: Potassium Phosphate 44 MEQ in 0.9 % Sodium Chloride 250 ML IVPB PRN (08:39)
[2020-06-15] MEDS: Midazolam HCl 50 MG/100 ML IV.SOLN IVC SCH (09:40)
[2020-06-15 10:41] LABS: Calcium 8.5 mg/dL (8.6-10.3); Potassium 3.7 mEq/L (3.5-5.1)
[2020-06-15] MEDS: Dexmedetomidine HCl 400 MCG/100 ML MLS IVC SCH (11:43)
[2020-06-15 15:17] LABS: Calcium 8.2 mg/dL (8.6-10.3); Potassium 4.1 mEq/L (3.5-5.1)
[2020-06-15 17:54] LABS: VBG Ionized Calcium 0.99 mmol/L (1.15-1.35)
[2020-06-15 18:15] LABS: Magnesium 2.4 mg/dL (1.6-2.6); Phosphorous 6.3 mg/dL (2.7-4.5)
[2020-06-15 23:21] LABS: VBG Ionized Calcium 1.03 mmol/L (1.15-1.35)
[2020-06-16] MEDS: Piperacillin/Tazobactam 3.375 GM in 0.9 % Sodium Chloride Mini Bag 100 ML IVPB SCH ×4 (00:07→23:48)
[2020-06-16] MEDS: Insulin LISPRO 300 UNITS/3 ML VIAL SUBQ SCH ×5 (00:08→23:48)
[2020-06-16] MEDS: Calcium Gluconate 1gm/50mL 1 GM/50 ML BAG IVPB PRN (00:08)
[2020-06-16] MEDS: Artificial Tears SOLN 15 ML BOTTLE BOTH EYES SCH ×7 (00:08→23:48)
[2020-06-16] MEDS: FentaNYL (PF) 1,000 MCG/100 ML IV.SOLN IVC SCH (01:40)
[2020-06-16] MEDS: *HR* Metoprolol 5 MG/5 ML VIAL IVP SCH ×5 (01:57→23:48)
[2020-06-16 04:23] LABS: ABG Base Excess -6 mEq/L (-2 to 3); ABG HCO3 21 mEq/L (21-27); ABG Oxygen Saturation 88 % (95-98); ABG PCO2 46 mmHg (35-45); ABG PH 7.26 pH Units (7.32-7.45); ABG PO2 64 mmHg (85-104); ABG TCO2 22 mEq/L (20-26); Blood Gas Modality AF; Blood Gas VT 450 cc
[2020-06-16 04:57] LABS: Hematocrit 36.9 % (37.5-50.1); Hemoglobin 11.3 g/dL (12.9-16.9); Mean Corpuscular HGB Conc 30.6 g/dL (31.6-35.5); Mean Corpuscular Hemoglobin 29.7 pg (28.0-33.3); Mean Corpuscular Volume 97.1 fL (83.0-100.0); Mean Platelet Volume 11.1 fL (9.4-12.4); Platelet Count 256 K/mcL (140-400); Red Cell Distribution Width 14.6 % (11.5-14.5)
[2020-06-16 05:01] LABS: VBG Ionized Calcium 1.12 mmol/L (1.15-1.35)
[2020-06-16 05:16] LABS: Calcium 8.4 mg/dL (8.6-10.3); Magnesium 2.4 mg/dL (1.6-2.6); Phosphorous 6.9 mg/dL (2.7-4.5); Potassium 4.1 mEq/L (3.5-5.1)
[2020-06-16] MEDS: *HR* Heparin 5,000 UNIT/ML VIAL SQ SCH ×3 (05:58→21:11)
[2020-06-16] MEDS: Chlorhexidine Rinse 15 ML MOUTHWASH MM SCH ×2 (07:44→21:11)
[2020-06-16] MEDS: Pantoprazole 40 MG VIAL IVP SCH (07:44)
[2020-06-16] MEDS: MethylPREDNISolone 40 MG/ML VIAL IVP SCH (07:44)
[2020-06-16 08:25] LABS: Bilirubin,Urine Negative (Negative); Blood,Urine Large (Negative); Budding Yeast,Urine Many per hpf (None Seen); Clarity,Urine Ex.Turbid (Clear); Color,Urine Yellow (Yellow); Glucose,Urine (UA) 50 mg/dL (Normal); Ketones,Urine 20 mg/dL (Negative); Leukocyte Esterase,Urine Large (Negative); Nitrite,Urine Negative (Negative); Protein,Urine 70 mg/dL (Neg-Trace); RBC,Urine TNTC per hpf (0-3); Specific Gravity,Urine 1.028 (1.010-1.025); Urobilinogen,Urine Normal (Normal); WBC,Urine 50-100 per hpf (0-3)
[2020-06-16] MEDS: Dexmedetomidine HCl 400 MCG/100 ML MLS IVC SCH (12:15)
[2020-06-16 16:03] LABS: Calcium 8.2 mg/dL (8.6-10.3); Potassium 4.2 mEq/L (3.5-5.1)
[2020-06-16 21:52] LABS: BUN/Creatinine Ratio 43 (6-26); Blood Urea Nitrogen 60 mg/dL (8-23); Calcium 8.1 mg/dL (8.6-10.3); Carbon Dioxide 24 mEq/L (23-29); Chloride 116 mEq/L (98-107); Glucose 176 mg/dL (70-105); Osmolality,Calculated 337 (280-300); Potassium 3.7 mEq/L (3.5-5.1); Sodium 153 mEq/L (136-145); eGFR For African Americans > 60 (> 60); eGFR For Non-African Americans 53 (> 60)
[2020-06-17] MEDS: FentaNYL (PF) 1,000 MCG/100 ML IV.SOLN IVC SCH (00:51)
[2020-06-17] MEDS: Artificial Tears SOLN 15 ML BOTTLE BOTH EYES SCH ×6 (03:03→23:06)
[2020-06-17 03:06] LABS: Basophils % 0.2 %; Eosinophils % 0.2 %; Hematocrit 33.3 % (37.5-50.1); Hemoglobin 10.2 g/dL (12.9-16.9); Immature Granulocytes % 1.1 % (0-4); Lymphocytes # 1.8 K/mcL (0.6-4.6); Lymphocytes % 14.5 %; Mean Corpuscular HGB Conc 30.6 g/dL (31.6-35.5); Mean Corpuscular Hemoglobin 29.7 pg (28.0-33.3); Mean Corpuscular Volume 96.8 fL (83.0-100.0); Mean Platelet Volume 10.7 fL (9.4-12.4); Monocytes # 0.7 K/mcL (0.0-1.3); Monocytes % 5.4 %; Neutrophils # 9.8 K/mcL (1.6-8.9); Platelet Count 214 K/mcL (140-400); Red Blood Count 3.44 M/mcL (4.19-5.50); Red Cell Distribution Width 14.7 % (11.5-14.5); Segmented Neutrophils % 78.6 %; White Blood Count 12.5 K/mcL (4.3-11.1)
[2020-06-17 03:34] LABS: BUN/Creatinine Ratio 43 (6-26); Blood Urea Nitrogen 53 mg/dL (8-23); Carbon Dioxide 22 mEq/L (23-29); Chloride 118 mEq/L (98-107); Glucose 189 mg/dL (70-105); Magnesium 2.3 mg/dL (1.6-2.6); Osmolality,Calculated 339 (280-300); Potassium 3.7 mEq/L (3.5-5.1); Sodium 155 mEq/L (136-145); eGFR For African Americans > 60 (> 60); eGFR For Non-African Americans 59 (> 60)
[2020-06-17] MEDS: Potassium Chloride 40 MEQ/200 ML BAG IVPB PRN ×2 (03:59→05:05)
[2020-06-17] MEDS: *HR* Metoprolol 5 MG/5 ML VIAL IVP SCH ×4 (05:11→23:08)
[2020-06-17] MEDS: Insulin LISPRO 300 UNITS/3 ML VIAL SUBQ SCH ×4 (05:15→23:59)
[2020-06-17] MEDS: *HR* Heparin 5,000 UNIT/ML VIAL SQ SCH ×3 (05:15→22:25)
[2020-06-17 06:43] LABS: INR 1.2; Prothrombin Time 13.4 Seconds (9.4-12.1)
[2020-06-17] MEDS: Piperacillin/Tazobactam 3.375 GM in 0.9 % Sodium Chloride Mini Bag 100 ML IVPB SCH ×3 (08:30→23:06)
[2020-06-17] MEDS: MethylPREDNISolone 40 MG/ML VIAL IVP SCH (08:31)
[2020-06-17] MEDS: Pantoprazole 40 MG VIAL IVP SCH (08:31)
[2020-06-17] MEDS: Chlorhexidine Rinse 15 ML MOUTHWASH MM SCH ×2 (08:31→22:24)
[2020-06-17] MEDS: Dexmedetomidine HCl 400 MCG/100 ML MLS IVC SCH (13:49)
[2020-06-17 16:13] LABS: ABG Base Excess 0 mEq/L (-2 to 3); ABG HCO3 26 mEq/L (21-27); ABG Oxygen Saturation 98 % (95-98); ABG PCO2 44 mmHg (35-45); ABG PH 7.37 pH Units (7.32-7.45); ABG PO2 110 mmHg (85-104); ABG TCO2 27 mEq/L (20-26); Blood Gas Modality AF; Blood Gas VT 450 cc
[2020-06-17 18:29] LABS: BUN/Creatinine Ratio 44 (6-26); Blood Urea Nitrogen 44 mg/dL (8-23); Calcium 8.1 mg/dL (8.6-10.3); Carbon Dioxide 26 mEq/L (23-29); Chloride 119 mEq/L (98-107); Glucose 313 mg/dL (70-105); Osmolality,Calculated 339 (280-300); Potassium 4.3 mEq/L (3.5-5.1); Sodium 153 mEq/L (136-145); eGFR For African Americans > 60 (> 60); eGFR For Non-African Americans > 60 (> 60)
[2020-06-17 23:34] LABS: BUN/Creatinine Ratio 40 (6-26); Blood Urea Nitrogen 38 mg/dL (8-23); Carbon Dioxide 27 mEq/L (23-29); Chloride 121 mEq/L (98-107); Glucose 272 mg/dL (70-105); Osmolality,Calculated 339 (280-300); Potassium 3.8 mEq/L (3.5-5.1); Sodium 155 mEq/L (136-145); eGFR For African Americans > 60 (> 60); eGFR For Non-African Americans > 60 (> 60)
[2020-06-18 03:44] LABS: Hemoglobin 8.9 g/dL (12.9-16.9); Mean Corpuscular HGB Conc 29.7 g/dL (31.6-35.5); Mean Corpuscular Hemoglobin 28.8 pg (28.0-33.3); Mean Corpuscular Volume 97.1 fL (83.0-100.0); Mean Platelet Volume 11.2 fL (9.4-12.4); Platelet Count 181 K/mcL (140-400); Red Blood Count 3.09 M/mcL (4.19-5.50); Red Cell Distribution Width 14.9 % (11.5-14.5); White Blood Count 10.5 K/mcL (4.3-11.1)
[2020-06-18 03:44] LABS: VBG Ionized Calcium 1.12 mmol/L (1.15-1.35)
[2020-06-18 04:01] LABS: Magnesium 2.3 mg/dL (1.6-2.6); Phosphorous 2.4 mg/dL (2.7-4.5)
[2020-06-18] MEDS: Artificial Tears SOLN 15 ML BOTTLE BOTH EYES SCH ×5 (04:08→20:58)
[2020-06-18 04:22] LABS: Alanine Aminotransferase 544 Units/L (7-52); Albumin 2.8 g/dL (3.5-5.7); Albumin/Globulin Ratio 1.1 (1.1-2.2); Alkaline Phosphatase 50 Units/L (34-104); Aspartate Amino Transferase 56 Units/L (13-39); BUN/Creatinine Ratio 39 (6-26); Bilirubin,Direct 0.1 mg/dL (0.0-0.2); Bilirubin,Indirect 0.4 mg/dL (0.0-1.0); Bilirubin,Total 0.5 mg/dL (0.3-1.0); Blood Urea Nitrogen 35 mg/dL (8-23); Carbon Dioxide 28 mEq/L (23-29); Chloride 120 mEq/L (98-107); Globulin 2.6 g/dL (2.4-3.5); Glucose 243 mg/dL (70-105); Osmolality,Calculated 336 (280-300); Potassium 3.6 mEq/L (3.5-5.1); Sodium 155 mEq/L (136-145); Total Protein 5.4 g/dL (6.4-8.9); eGFR For African Americans > 60 (> 60); eGFR For Non-African Americans > 60 (> 60)
[2020-06-18 04:27] LABS: ABG Base Excess 3 mEq/L (-2 to 3); ABG HCO3 29 mEq/L (21-27); ABG Oxygen Saturation 98 % (95-98); ABG PCO2 47 mmHg (35-45); ABG PH 7.39 pH Units (7.32-7.45); ABG PO2 105 mmHg (85-104); ABG TCO2 30 mEq/L (20-26); Blood Gas VT 450 cc
[2020-06-18] MEDS: Potassium Chloride 40 MEQ/200 ML BAG IVPB PRN (05:09)
[2020-06-18] MEDS: *HR* Heparin 5,000 UNIT/ML VIAL SQ SCH ×3 (05:11→22:11)
[2020-06-18] MEDS: *HR* Metoprolol 5 MG/5 ML VIAL IVP SCH ×3 (05:11→17:52)
[2020-06-18] MEDS: Insulin LISPRO 300 UNITS/3 ML VIAL SUBQ SCH ×4 (05:13→20:58)
[2020-06-18] MEDS: Pantoprazole 40 MG VIAL IVP SCH (09:34)
[2020-06-18] MEDS: Piperacillin/Tazobactam 3.375 GM in 0.9 % Sodium Chloride Mini Bag 100 ML IVPB SCH ×2 (09:35→17:52)
[2020-06-18] MEDS: Chlorhexidine Rinse 15 ML MOUTHWASH MM SCH ×2 (09:35→20:58)
[2020-06-18] MEDS: MethylPREDNISolone 40 MG/ML VIAL IVP SCH (09:36)
[2020-06-18] MEDS: Aspirin 81 MG TAB.CHEW PO SCH (09:37)
[2020-06-18] MEDS: Midazolam HCl 50 MG/100 ML IV.SOLN IVC SCH ×2 (09:37→11:02)
[2020-06-18] MEDS: Norepinephrine 4 MG/254 ML IV.SOLN IVC SCH ×2 (09:40→11:59)
[2020-06-18] MEDS: Potassium Phosphate 44 MEQ in 0.9 % Sodium Chloride 250 ML IVPB PRN (09:45)
[2020-06-18] MEDS: Dexmedetomidine HCl 400 MCG/100 ML MLS IVC SCH (12:05)
[2020-06-18 12:58] LABS: BUN/Creatinine Ratio 40 (6-26); Blood Urea Nitrogen 32 mg/dL (8-23); Calcium 7.8 mg/dL (8.6-10.3); Carbon Dioxide 26 mEq/L (23-29); Chloride 119 mEq/L (98-107); Glucose 336 mg/dL (70-105); Osmolality,Calculated 336 (280-300); Potassium 4.4 mEq/L (3.5-5.1); Sodium 153 mEq/L (136-145); eGFR For African Americans > 60 (> 60); eGFR For Non-African Americans > 60 (> 60)
[2020-06-18 18:53] LABS: BUN/Creatinine Ratio 41 (6-26); Blood Urea Nitrogen 30 mg/dL (8-23); Calcium 7.8 mg/dL (8.6-10.3); Carbon Dioxide 26 mEq/L (23-29); Chloride 120 mEq/L (98-107); Glucose 192 mg/dL (70-105); Osmolality,Calculated 331 (280-300); Phosphorous 4.4 mg/dL (2.7-4.5); Potassium 4.3 mEq/L (3.5-5.1); Sodium 155 mEq/L (136-145); eGFR For African Americans > 60 (> 60); eGFR For Non-African Americans > 60 (> 60)
[2020-06-19] MEDS: *HR* Metoprolol 5 MG/5 ML VIAL IVP SCH ×5 (00:09→23:30)
[2020-06-19] MEDS: Insulin LISPRO 300 UNITS/3 ML VIAL SUBQ SCH ×7 (00:09→23:38)
[2020-06-19] MEDS: Artificial Tears SOLN 15 ML BOTTLE BOTH EYES SCH ×7 (00:11→23:29)
[2020-06-19] MEDS: Piperacillin/Tazobactam 3.375 GM in 0.9 % Sodium Chloride Mini Bag 100 ML IVPB SCH ×4 (00:11→23:30)
[2020-06-19 00:58] LABS: BUN/Creatinine Ratio 47 (6-26); Blood Urea Nitrogen 32 mg/dL (8-23); Calcium 7.5 mg/dL (8.6-10.3); Carbon Dioxide 27 mEq/L (23-29); Chloride 120 mEq/L (98-107); Glucose 145 mg/dL (70-105); Osmolality,Calculated 327 (280-300); Potassium 3.8 mEq/L (3.5-5.1); Sodium 154 mEq/L (136-145); eGFR For African Americans > 60 (> 60); eGFR For Non-African Americans > 60 (> 60)
[2020-06-19 04:10] LABS: Hematocrit 28.4 % (37.5-50.1); Hemoglobin 8.7 g/dL (12.9-16.9); Mean Corpuscular HGB Conc 30.6 g/dL (31.6-35.5); Mean Corpuscular Hemoglobin 29.8 pg (28.0-33.3); Mean Corpuscular Volume 97.3 fL (83.0-100.0); Mean Platelet Volume 11.2 fL (9.4-12.4); Platelet Count 185 K/mcL (140-400); Red Blood Count 2.92 M/mcL (4.19-5.50); Red Cell Distribution Width 14.8 % (11.5-14.5); White Blood Count 10.4 K/mcL (4.3-11.1)
[2020-06-19 04:33] LABS: BUN/Creatinine Ratio 36 (6-26); Blood Urea Nitrogen 30 mg/dL (8-23); Calcium 7.7 mg/dL (8.6-10.3); Carbon Dioxide 27 mEq/L (23-29); Chloride 118 mEq/L (98-107); Glucose 229 mg/dL (70-105); Osmolality,Calculated 327 (280-300); Potassium 3.5 mEq/L (3.5-5.1); Sodium 152 mEq/L (136-145); eGFR For African Americans > 60 (> 60); eGFR For Non-African Americans > 60 (> 60)
[2020-06-19] MEDS: Potassium Chloride 40 MEQ/200 ML BAG IVPB PRN (04:37)
[2020-06-19 04:38] LABS: ABG Base Excess 2 mEq/L (-2 to 3); ABG HCO3 28 mEq/L (21-27); ABG Oxygen Saturation 98 % (95-98); ABG PCO2 48 mmHg (35-45); ABG PH 7.36 pH Units (7.32-7.45); ABG PO2 106 mmHg (85-104); ABG TCO2 29 mEq/L (20-26); Blood Gas VT 450 cc
[2020-06-19 05:13] LABS: Magnesium 2.1 mg/dL (1.6-2.6); Phosphorous 3.1 mg/dL (2.7-4.5)
[2020-06-19] MEDS: *HR* Heparin 5,000 UNIT/ML VIAL SQ SCH ×3 (05:22→21:34)
[2020-06-19] MEDS: Chlorhexidine Rinse 15 ML MOUTHWASH MM SCH ×2 (08:45→21:38)
[2020-06-19] MEDS: Pantoprazole 40 MG VIAL IVP SCH (08:46)
[2020-06-19] MEDS: MethylPREDNISolone 40 MG/ML VIAL IVP SCH (08:46)
[2020-06-19] MEDS: Aspirin 81 MG TAB.CHEW PO SCH (08:47)
[2020-06-19] MEDS: Midazolam HCl 50 MG/100 ML IV.SOLN IVC SCH (08:52)
[2020-06-19] MEDS: Norepinephrine 4 MG/254 ML IV.SOLN IVC SCH (12:00)
[2020-06-19] MEDS: FentaNYL (PF) 1,000 MCG/100 ML IV.SOLN IVC SCH (12:00)
[2020-06-19] MEDS: Dexmedetomidine HCl 400 MCG/100 ML MLS IVC SCH (12:01)
[2020-06-19 12:49] LABS: BUN/Creatinine Ratio 32 (6-26); Blood Urea Nitrogen 25 mg/dL (8-23); Calcium 7.7 mg/dL (8.6-10.3); Carbon Dioxide 27 mEq/L (23-29); Chloride 119 mEq/L (98-107); Glucose 154 mg/dL (70-105); Osmolality,Calculated 319 (280-300); Potassium 3.9 mEq/L (3.5-5.1); Sodium 151 mEq/L (136-145); eGFR For African Americans > 60 (> 60); eGFR For Non-African Americans > 60 (> 60)
[2020-06-19] MEDS ORDERED: Ringers Solution, Lactated 500 ML ONE (12:59)
[2020-06-19 14:25] LABS: Adenovirus Not Detected (Not Detect); Bordetella Pertussis Not Detected (Not Detect); Chlamydophila pneumoniae Not Detected (Not Detect); Coronavirus 229E Not Detected (Not Detect); Coronavirus HKU1 Not Detected (Not Detect); Coronavirus NL63 Not Detected (Not Detect); Coronavirus OC43 Not Detected (Not Detect); Human Metapneumovirus Not Detected (Not Detect); Human Rhinovirus/Enterovirus Not Detected (Not Detect); Influenza A Subtype 2009 H1 Not Detected (Not Detect); Influenza B Not Detected (Not Detect); Mycoplasma pneumoniae Not Detected (Not Detect); Parainfluenza Virus 1 Not Detected (Not Detect); Parainfluenza Virus 2 Not Detected (Not Detect); Parainfluenza Virus 3 Not Detected (Not Detect); Parainfluenza Virus 4 Not Detected (Not Detect); Respiratory Syncytial Virus Not Detected (Not Detect); SARS-CoV-2 Not Detected (Not Detect)
[2020-06-19] MEDS: Micafungin 100 MG in 0.9 % Sodium Chloride Mini Bag 100 ML IVPB SCH (14:32)
[2020-06-19] MEDS ORDERED: *HR* Propofol 200 MG/20 ML VIAL IVP ONE (14:40)
[2020-06-19] MEDS ORDERED: Lidocaine -MPF 2% 5 ML VIAL SQ ONE (14:40)
[2020-06-19 16:25] LABS: BUN/Creatinine Ratio 36 (6-26); Blood Urea Nitrogen 25 mg/dL (8-23); Calcium 7.4 mg/dL (8.6-10.3); Carbon Dioxide 24 mEq/L (23-29); Chloride 116 mEq/L (98-107); Glucose 262 mg/dL (70-105); Osmolality,Calculated 321 (280-300); Potassium 4.2 mEq/L (3.5-5.1); Sodium 149 mEq/L (136-145); eGFR For African Americans > 60 (> 60); eGFR For Non-African Americans > 60 (> 60)
[2020-06-19 22:20] LABS: BUN/Creatinine Ratio 34 (6-26); Blood Urea Nitrogen 24 mg/dL (8-23); Calcium 7.8 mg/dL (8.6-10.3); Carbon Dioxide 27 mEq/L (23-29); Chloride 118 mEq/L (98-107); Glucose 158 mg/dL (70-105); Osmolality,Calculated 319 (280-300); Potassium 3.4 mEq/L (3.5-5.1); Sodium 151 mEq/L (136-145); eGFR For African Americans > 60 (> 60); eGFR For Non-African Americans > 60 (> 60)
[2020-06-20] MEDS: Potassium Chloride 40 MEQ/200 ML BAG IVPB PRN ×2 (00:04→01:16)
[2020-06-20 03:39] LABS: VBG Ionized Calcium 1.09 mmol/L (1.15-1.35)
[2020-06-20 03:40] LABS: Hematocrit 25.5 % (37.5-50.1); Hemoglobin 7.8 g/dL (12.9-16.9); Mean Corpuscular HGB Conc 30.6 g/dL (31.6-35.5); Mean Corpuscular Hemoglobin 28.9 pg (28.0-33.3); Mean Corpuscular Volume 94.4 fL (83.0-100.0); Mean Platelet Volume 11.6 fL (9.4-12.4); Platelet Count 170 K/mcL (140-400); Red Cell Distribution Width 14.5 % (11.5-14.5); White Blood Count 11.3 K/mcL (4.3-11.1)
[2020-06-20 04:01] LABS: Magnesium 1.9 mg/dL (1.6-2.6); Phosphorous 2.6 mg/dL (2.7-4.5)
[2020-06-20 04:09] LABS: ABG Base Excess 2 mEq/L (-2 to 3); ABG HCO3 27 mEq/L (21-27); ABG Oxygen Saturation 91 % (95-98); ABG PCO2 43 mmHg (35-45); ABG PH 7.41 pH Units (7.32-7.45); ABG PO2 62 mmHg (85-104); ABG TCO2 29 mEq/L (20-26); Blood Gas VT 450 cc
[2020-06-20] MEDS: Artificial Tears SOLN 15 ML BOTTLE BOTH EYES SCH ×5 (04:15→21:15)
[2020-06-20] MEDS: Potassium Phosphate 44 MEQ in 0.9 % Sodium Chloride 250 ML IVPB PRN (05:03)
[2020-06-20] MEDS: Insulin LISPRO 300 UNITS/3 ML VIAL SUBQ SCH ×5 (05:09→21:15)
[2020-06-20] MEDS: *HR* Metoprolol 5 MG/5 ML VIAL IVP SCH ×3 (05:13→18:37)
[2020-06-20] MEDS: *HR* Heparin 5,000 UNIT/ML VIAL SQ SCH ×3 (05:13→21:14)
[2020-06-20] MEDS: Piperacillin/Tazobactam 3.375 GM in 0.9 % Sodium Chloride Mini Bag 100 ML IVPB SCH ×2 (07:52→16:37)
[2020-06-20] MEDS: Chlorhexidine Rinse 15 ML MOUTHWASH MM SCH ×2 (07:53→21:14)
[2020-06-20] MEDS: Micafungin 100 MG in 0.9 % Sodium Chloride Mini Bag 100 ML IVPB SCH (07:55)
[2020-06-20] MEDS: MethylPREDNISolone 40 MG/ML VIAL IVP SCH (07:55)
[2020-06-20] MEDS: Pantoprazole 40 MG VIAL IVP SCH (07:56)
[2020-06-20] MEDS: Aspirin 81 MG TAB.CHEW PO SCH (07:56)
[2020-06-20 09:30] LABS: BUN/Creatinine Ratio 28 (6-26); Blood Urea Nitrogen 19 mg/dL (8-23); Calcium 7.6 mg/dL (8.6-10.3); Carbon Dioxide 27 mEq/L (23-29); Chloride 114 mEq/L (98-107); Glucose 211 mg/dL (70-105); Osmolality,Calculated 307 (280-300); Potassium 4.2 mEq/L (3.5-5.1); Sodium 144 mEq/L (136-145); eGFR For African Americans > 60 (> 60); eGFR For Non-African Americans > 60 (> 60)
[2020-06-20] MEDS: Midazolam HCl 50 MG/100 ML IV.SOLN IVC SCH (10:02)
[2020-06-20] MEDS: Norepinephrine 4 MG/254 ML IV.SOLN IVC SCH (10:02)
[2020-06-20] MEDS: FentaNYL (PF) 1,000 MCG/100 ML IV.SOLN IVC SCH (11:26)
[2020-06-20] MEDS: Dexmedetomidine HCl 400 MCG/100 ML MLS IVC SCH (11:27)
[2020-06-20] MEDS: Calcium Gluconate 1gm/50mL 1 GM/50 ML BAG IVPB PRN (12:22)
[2020-06-20 17:07] LABS: VBG Ionized Calcium 1.11 mmol/L (1.15-1.35)
[2020-06-20 17:24] LABS: Magnesium 2.4 mg/dL (1.6-2.6); Phosphorous 4.3 mg/dL (2.7-4.5); Potassium 4.5 mEq/L (3.5-5.1)
[2020-06-21] MEDS: *HR* Metoprolol 5 MG/5 ML VIAL IVP SCH ×2 (00:25→05:42)
[2020-06-21] MEDS: Piperacillin/Tazobactam 3.375 GM in 0.9 % Sodium Chloride Mini Bag 100 ML IVPB SCH ×3 (00:25→16:05)
[2020-06-21] MEDS: Artificial Tears SOLN 15 ML BOTTLE BOTH EYES SCH ×3 (00:25→07:29)
[2020-06-21] MEDS: Insulin LISPRO 300 UNITS/3 ML VIAL SUBQ SCH ×7 (00:28→23:51)
[2020-06-21 04:30] LABS: ABG Base Excess 3 mEq/L (-2 to 3); ABG HCO3 27 mEq/L (21-27); ABG Oxygen Saturation 99 % (95-98); ABG PCO2 39 mmHg (35-45); ABG PH 7.45 pH Units (7.32-7.45); ABG PO2 115 mmHg (85-104); ABG TCO2 28 mEq/L (20-26); Blood Gas VT 450 cc
[2020-06-21 04:44] LABS: Hematocrit 25.3 % (37.5-50.1); Mean Corpuscular HGB Conc 31.6 g/dL (31.6-35.5); Mean Corpuscular Hemoglobin 29.3 pg (28.0-33.3); Mean Corpuscular Volume 92.7 fL (83.0-100.0); Mean Platelet Volume 11.8 fL (9.4-12.4); Platelet Count 207 K/mcL (140-400); Red Blood Count 2.73 M/mcL (4.19-5.50); Red Cell Distribution Width 14.6 % (11.5-14.5); White Blood Count 12.6 K/mcL (4.3-11.1)
[2020-06-21 04:55] LABS: BUN/Creatinine Ratio 19 (6-26); Blood Urea Nitrogen 14 mg/dL (8-23); Carbon Dioxide 27 mEq/L (23-29); Chloride 111 mEq/L (98-107); Glucose 122 mg/dL (70-105); Osmolality,Calculated 300 (280-300); Potassium 3.8 mEq/L (3.5-5.1); Sodium 144 mEq/L (136-145); eGFR For African Americans > 60 (> 60); eGFR For Non-African Americans > 60 (> 60)
[2020-06-21 04:57] LABS: Magnesium 2.1 mg/dL (1.6-2.6); Phosphorous 3.5 mg/dL (2.7-4.5)
[2020-06-21] MEDS: *HR* Heparin 5,000 UNIT/ML VIAL SQ SCH ×3 (05:42→22:25)
[2020-06-21] MEDS: Aspirin 81 MG TAB.CHEW PO SCH (07:30)
[2020-06-21] MEDS: Pantoprazole 40 MG VIAL IVP SCH (07:30)
[2020-06-21] MEDS: MethylPREDNISolone 40 MG/ML VIAL IVP SCH (07:30)
[2020-06-21] MEDS: Chlorhexidine Rinse 15 ML MOUTHWASH MM SCH ×2 (07:30→22:39)
[2020-06-21] MEDS ORDERED: *HR* Metoprolol 5 MG/5 ML VIAL IVP PRN (10:33)
[2020-06-21] MEDS ORDERED: Dextrose Gel 15 GM/37.5 ML TUBE PO PRN ×2 (15:51)
[2020-06-21] MEDS ORDERED: Ondansetron ODT 4 MG TAB.RAPDIS SL PRN (15:51)
[2020-06-21] MEDS ORDERED: Levalbuterol Neb 0.63 MG/3 ML IH PRN (15:51)
[2020-06-21] MEDS ORDERED: Naloxone 0.4 MG/ML INJ IVP PRN (15:51)
[2020-06-21] MEDS ORDERED: *HR* Dextrose 50 % in Water (Vial) 50 ML VIAL IVP PRN (15:51)
[2020-06-21] MEDS ORDERED: levETIRAcetam 500 MG/5 ML UDC GTUBE SCH (21:00)
[2020-06-21] MEDS: levETIRAcetam 500 MG/5 ML UDC GTUBE SCH (22:30)
[2020-06-22] MEDS: Piperacillin/Tazobactam 3.375 GM in 0.9 % Sodium Chloride Mini Bag 100 ML IVPB SCH ×3 (00:04→15:35)
[2020-06-22] MEDS: Insulin LISPRO 300 UNITS/3 ML VIAL SUBQ SCH ×5 (04:22→19:47)
[2020-06-22] MEDS: *HR* Heparin 5,000 UNIT/ML VIAL SQ SCH ×3 (04:23→23:18)
[2020-06-22 04:39] LABS: Hematocrit 24.6 % (37.5-50.1); Hemoglobin 7.6 g/dL (12.9-16.9); Mean Corpuscular HGB Conc 30.9 g/dL (31.6-35.5); Mean Corpuscular Hemoglobin 29.6 pg (28.0-33.3); Mean Corpuscular Volume 95.7 fL (83.0-100.0); Mean Platelet Volume 11.5 fL (9.4-12.4); Platelet Count 214 K/mcL (140-400); Red Blood Count 2.57 M/mcL (4.19-5.50); Red Cell Distribution Width 14.5 % (11.5-14.5); White Blood Count 10.9 K/mcL (4.3-11.1)
[2020-06-22 04:55] LABS: Magnesium 1.8 mg/dL (1.6-2.6); Phosphorous 3.4 mg/dL (2.7-4.5)
[2020-06-22] MEDS: predniSONE 10 MG TABLET PO SCH (08:31)
[2020-06-22] MEDS: Aspirin 81 MG TAB.CHEW PO SCH (08:31)
[2020-06-22] MEDS: Chlorhexidine Rinse 15 ML MOUTHWASH MM SCH ×3 (08:32→19:47)
[2020-06-22] MEDS: levETIRAcetam 500 MG/5 ML UDC GTUBE SCH ×2 (08:32→19:47)
[2020-06-22] MEDS ORDERED: predniSONE 10 MG TABLET PO SCH (09:00)
[2020-06-23] MEDS: Insulin LISPRO 300 UNITS/3 ML VIAL SUBQ SCH ×6 (01:00→21:33)
[2020-06-23] MEDS: Piperacillin/Tazobactam 3.375 GM in 0.9 % Sodium Chloride Mini Bag 100 ML IVPB SCH ×3 (01:00→17:25)
[2020-06-23 02:26] LABS: Hematocrit 30.7 % (37.5-50.1); Hemoglobin 9.4 g/dL (12.9-16.9); Mean Corpuscular HGB Conc 30.6 g/dL (31.6-35.5); Mean Corpuscular Hemoglobin 29.8 pg (28.0-33.3); Mean Corpuscular Volume 97.5 fL (83.0-100.0); Mean Platelet Volume 11.7 fL (9.4-12.4); Platelet Count 245 K/mcL (140-400); Red Blood Count 3.15 M/mcL (4.19-5.50); Red Cell Distribution Width 14.8 % (11.5-14.5); White Blood Count 15.1 K/mcL (4.3-11.1)
[2020-06-23 02:39] LABS: Phosphorous 3.4 mg/dL (2.7-4.5)
[2020-06-23] MEDS: *HR* Heparin 5,000 UNIT/ML VIAL SQ SCH ×3 (05:34→21:32)
[2020-06-23] MEDS: predniSONE 10 MG TABLET PO SCH (07:56)
[2020-06-23] MEDS: Aspirin 81 MG TAB.CHEW PO SCH (07:57)
[2020-06-23] MEDS: levETIRAcetam 500 MG/5 ML UDC GTUBE SCH ×2 (07:57→21:32)
[2020-06-24] MEDS: Piperacillin/Tazobactam 3.375 GM in 0.9 % Sodium Chloride Mini Bag 100 ML IVPB SCH ×4 (00:46→23:10)
[2020-06-24] MEDS: Insulin LISPRO 300 UNITS/3 ML VIAL SUBQ SCH ×6 (00:47→20:22)
[2020-06-24] MEDS: *HR* Heparin 5,000 UNIT/ML VIAL SQ SCH ×3 (06:05→20:50)
[2020-06-24 06:28] LABS: Hematocrit 27.3 % (37.5-50.1); Hemoglobin 8.3 g/dL (12.9-16.9); Mean Corpuscular HGB Conc 30.4 g/dL (31.6-35.5); Mean Corpuscular Volume 95.5 fL (83.0-100.0); Mean Platelet Volume 11.1 fL (9.4-12.4); Platelet Count 292 K/mcL (140-400); Red Blood Count 2.86 M/mcL (4.19-5.50); Red Cell Distribution Width 15.2 % (11.5-14.5); White Blood Count 11.7 K/mcL (4.3-11.1)
[2020-06-24 06:57] LABS: Magnesium 1.9 mg/dL (1.6-2.6); Phosphorous 3.5 mg/dL (2.7-4.5)
[2020-06-24] MEDS: levETIRAcetam 500 MG/5 ML UDC GTUBE SCH ×2 (08:05→20:21)
[2020-06-24] MEDS: Aspirin 81 MG TAB.CHEW PO SCH (08:06)
[2020-06-24] MEDS: predniSONE 10 MG TABLET PO SCH (08:06)
[2020-06-24] MEDS ORDERED: D5% in Water 1,000 ML IVC PRN (09:40)
[2020-06-25 01:58] LABS: Hematocrit 27.5 % (37.5-50.1); Hemoglobin 8.4 g/dL (12.9-16.9); Mean Corpuscular HGB Conc 30.5 g/dL (31.6-35.5); Mean Corpuscular Hemoglobin 29.6 pg (28.0-33.3); Mean Corpuscular Volume 96.8 fL (83.0-100.0); Mean Platelet Volume 11.2 fL (9.4-12.4); Platelet Count 320 K/mcL (140-400); Red Blood Count 2.84 M/mcL (4.19-5.50); Red Cell Distribution Width 15.6 % (11.5-14.5); White Blood Count 10.7 K/mcL (4.3-11.1)
[2020-06-25 02:18] LABS: Magnesium 1.8 mg/dL (1.6-2.6); Phosphorous 3.3 mg/dL (2.7-4.5)
[2020-06-25] MEDS: Insulin LISPRO 300 UNITS/3 ML VIAL SUBQ SCH ×6 (03:12→20:08)
[2020-06-25] MEDS: *HR* Heparin 5,000 UNIT/ML VIAL SQ SCH ×3 (04:47→20:08)
[2020-06-25] MEDS: Piperacillin/Tazobactam 3.375 GM in 0.9 % Sodium Chloride Mini Bag 100 ML IVPB SCH (07:39)
[2020-06-25] MEDS: levETIRAcetam 500 MG/5 ML UDC GTUBE SCH ×2 (07:40→20:08)
[2020-06-25] MEDS: Aspirin 81 MG TAB.CHEW GTUBE SCH (07:41)
[2020-06-25] MEDS ORDERED: predniSONE 5 MG TABLET GTUBE SCH (09:00)
[2020-06-25] MEDS ORDERED: predniSONE 10 MG TABLET GTUBE SCH (09:00)
[2020-06-26] MEDS: Insulin LISPRO 300 UNITS/3 ML VIAL SUBQ SCH ×6 (03:34→20:54)
[2020-06-26 03:41] LABS: Mean Corpuscular Hemoglobin 29.8 pg (28.0-33.3); Mean Platelet Volume 10.8 fL (9.4-12.4); Platelet Count 370 K/mcL (140-400); Red Blood Count 3.02 M/mcL (4.19-5.50); Red Cell Distribution Width 16.2 % (11.5-14.5); White Blood Count 10.9 K/mcL (4.3-11.1)
[2020-06-26 03:59] LABS: Magnesium 1.8 mg/dL (1.6-2.6)
[2020-06-26] MEDS: *HR* Heparin 5,000 UNIT/ML VIAL SQ SCH ×3 (04:35→20:53)
[2020-06-26] MEDS: Aspirin 81 MG TAB.CHEW GTUBE SCH (08:44)
[2020-06-26] MEDS: levETIRAcetam 500 MG/5 ML UDC GTUBE SCH ×2 (08:44→20:53)
[2020-06-27] MEDS: Insulin LISPRO 300 UNITS/3 ML VIAL SUBQ SCH ×4 (00:44→11:40)
[2020-06-27 03:32] LABS: Hematocrit 30.1 % (37.5-50.1); Hemoglobin 9.4 g/dL (12.9-16.9); Mean Corpuscular HGB Conc 31.2 g/dL (31.6-35.5); Mean Corpuscular Volume 96.2 fL (83.0-100.0); Mean Platelet Volume 10.5 fL (9.4-12.4); Platelet Count 384 K/mcL (140-400); Red Blood Count 3.13 M/mcL (4.19-5.50); Red Cell Distribution Width 16.7 % (11.5-14.5)
[2020-06-27] MEDS: *HR* Heparin 5,000 UNIT/ML VIAL SQ SCH ×2 (04:42→14:19)
[2020-06-27] MEDS: levETIRAcetam 500 MG/5 ML UDC GTUBE SCH (07:13)
[2020-06-27] MEDS: Aspirin 81 MG TAB.CHEW GTUBE SCH (07:13)
[2020-06-27 11:05] VITALS: BP 108/67
== END 2020-06-27 15:55 | disposition home health service (06) | DRG 637 ==
LOC: EMEROOARM 14:19 → 3ANU 14:19 → SUATTDRO 18:46 → 3ANU 20:10 → SUATTDRO 06-05 12:08 → ICNU 06-11 18:46 → 2ANU 06-13 23:16 → ICNU 06-14 08:37 → 2ANU 06-21 16:52
PROVIDERS: ADMIT Family Medicine; ATTEND Family Medicine

== ENCOUNTER 2020-06-28 11:42 | Observation (INO) ==
[2020-06-28] MEDS: 0.9 % Sodium Chloride 1,000 ML IVC ONE ×2 (12:09→13:29)
[2020-06-28 12:28] LABS: Basophils % 0.3 %; Eosinophils # 0.1 K/mcL (0.0-0.6); Eosinophils % 0.5 %; Hematocrit 30.4 % (37.5-50.1); Hemoglobin 9.7 g/dL (12.9-16.9); Immature Granulocytes % 0.3 % (0-4); Lymphocytes # 1.2 K/mcL (0.6-4.6); Lymphocytes % 9.6 %; Mean Corpuscular HGB Conc 31.9 g/dL (31.6-35.5); Mean Corpuscular Volume 97.1 fL (83.0-100.0); Mean Platelet Volume 10.2 fL (9.4-12.4); Monocytes # 0.9 K/mcL (0.0-1.3); Monocytes % 6.8 %; Neutrophils # 10.3 K/mcL (1.6-8.9); Platelet Count 351 K/mcL (140-400); Red Blood Count 3.13 M/mcL (4.19-5.50); Red Cell Distribution Width 17.2 % (11.5-14.5); Segmented Neutrophils % 82.5 %; White Blood Count 12.5 K/mcL (4.3-11.1)
[2020-06-28 12:31] LABS: VBG HCO3 27 mEq/L (21-27); VBG PCO2 39 mmHg (41-51); VBG PH 7.45 pH Units (7.32-7.42); VBG PO2 121 mmHg (25-50)
[2020-06-28] MEDS ORDERED: Piperacillin/Tazobactam 3.375 GM in 0.9 % Sodium Chloride Mini Bag 100 ML IVPB ONE (12:43)
[2020-06-28] MEDS ORDERED: Isovue-370 500 ML BOTTLE IVP ONE (12:44)
[2020-06-28 12:50] LABS: Troponin I 0.03 ng/mL (< 0.04)
[2020-06-28] MEDS ORDERED: Piperacillin/Tazobactam 3.375 GM VIAL ONE (13:18)
[2020-06-28 14:12] LABS: BUN/Creatinine Ratio 43 (6-26); Blood Urea Nitrogen 29 mg/dL (8-23); Calcium 8.6 mg/dL (8.6-10.3); Carbon Dioxide 28 mEq/L (23-29); Chloride 105 mEq/L (98-107); Glucose 292 mg/dL (70-105); Magnesium 2.1 mg/dL (1.6-2.6); Osmolality,Calculated 311 (280-300); Sodium 142 mEq/L (136-145); eGFR For African Americans > 60 (> 60); eGFR For Non-African Americans > 60 (> 60)
[2020-06-28] MEDS ORDERED: Naloxone 0.4 MG/ML INJ IVP PRN (16:22)
[2020-06-28] MEDS ORDERED: Ondansetron 4 MG/2 ML VIAL IVP PRN (16:22)
[2020-06-28] MEDS: *HR* Heparin 5,000 UNIT/ML VIAL SQ SCH (17:32)
[2020-06-28] MEDS: 0.9 % Sodium Chloride 1,000 ML IVC SCH (18:48)
[2020-06-28] MEDS: Piperacillin/Tazobactam 3.375 GM in 0.9 % Sodium Chloride Mini Bag 100 ML IVPB SCH (20:44)
[2020-06-28] MEDS: levETIRAcetam 500 MG/5 ML UDC GTUBE SCH (20:44)
[2020-06-29] MEDS: Piperacillin/Tazobactam 3.375 GM in 0.9 % Sodium Chloride Mini Bag 100 ML IVPB SCH ×3 (05:33→21:56)
[2020-06-29] MEDS: *HR* Heparin 5,000 UNIT/ML VIAL SQ SCH ×2 (05:33→17:40)
[2020-06-29 05:37] LABS: Basophils # 0.1 K/mcL (0.0-0.2); Basophils % 0.5 %; Eosinophils # 0.2 K/mcL (0.0-0.6); Eosinophils % 2.2 %; Immature Granulocytes % 0.6 % (0-4); Lymphocytes % 9.9 %; Mean Corpuscular Hemoglobin 29.5 pg (28.0-33.3); Mean Corpuscular Volume 98.5 fL (83.0-100.0); Mean Platelet Volume 10.3 fL (9.4-12.4); Monocytes # 0.4 K/mcL (0.0-1.3); Monocytes % 4.4 %; Platelet Count 292 K/mcL (140-400); Red Blood Count 2.64 M/mcL (4.19-5.50); Red Cell Distribution Width 16.9 % (11.5-14.5); Segmented Neutrophils % 82.4 %; White Blood Count 9.8 K/mcL (4.3-11.1)
[2020-06-29 05:43] LABS: Hemoglobin 7.8 g/dL (12.9-16.9)
[2020-06-29 05:57] LABS: BUN/Creatinine Ratio 34 (6-26); Blood Urea Nitrogen 18 mg/dL (8-23); Calcium 7.9 mg/dL (8.6-10.3); Carbon Dioxide 26 mEq/L (23-29); Chloride 111 mEq/L (98-107); Glucose 221 mg/dL (70-105); Magnesium 1.9 mg/dL (1.6-2.6); Osmolality,Calculated 305 (280-300); Phosphorous 2.7 mg/dL (2.7-4.5); Potassium 3.2 mEq/L (3.5-5.1); Sodium 143 mEq/L (136-145); eGFR For African Americans > 60 (> 60); eGFR For Non-African Americans > 60 (> 60)
[2020-06-29] MEDS ORDERED: Potassium Chloride 40 MEQ, Lidocaine 1% 2 ML in 0.9 % Sodium Chloride 500 ML IVPB ONE (07:30)
[2020-06-29] MEDS: 0.9 % Sodium Chloride 1,000 ML IVC SCH (07:41)
[2020-06-29] MEDS ORDERED: Ondansetron 4 MG/2 ML VIAL ONE (07:48)
[2020-06-29] MEDS ORDERED: *HR* FentaNYL (PF) 100 MCG/2 ML VIAL ONE (07:48)
[2020-06-29] MEDS ORDERED: *HR* Propofol 200 MG/20 ML VIAL IVP ONE (07:48)
[2020-06-29] MEDS ORDERED: Dexamethasone 4 MG/ML VIAL ONE (07:48)
[2020-06-29] MEDS ORDERED: *HR* Succinylcholine 200 MG/10 ML VIAL IVP ONE (07:48)
[2020-06-29] MEDS ORDERED: Lidocaine HCL 4 ML Topical Solution (Laryng-O-Jet Kit Sterile Pak) TP ONE (07:48)
[2020-06-29] MEDS ORDERED: Lidocaine -MPF 2% 2 ML VIAL ONE ×2 (07:48→09:44)
[2020-06-29] MEDS: Cyanocobalamin (B-12) 1,000 MCG TABLET GTUBE SCH (08:18)
[2020-06-29] MEDS: Aspirin 81 MG TAB.CHEW GTUBE SCH (08:18)
[2020-06-29] MEDS: levETIRAcetam 500 MG/5 ML UDC GTUBE SCH ×2 (08:18→21:57)
[2020-06-29 09:22] LABS: Adenovirus Not Detected (Not Detect); Bordetella Pertussis Not Detected (Not Detect); Chlamydophila pneumoniae Not Detected (Not Detect); Coronavirus 229E Not Detected (Not Detect); Coronavirus HKU1 Not Detected (Not Detect); Coronavirus NL63 Not Detected (Not Detect); Coronavirus OC43 Not Detected (Not Detect); Human Metapneumovirus Not Detected (Not Detect); Human Rhinovirus/Enterovirus Not Detected (Not Detect); Influenza A Subtype 2009 H1 Not Detected (Not Detect); Influenza B Not Detected (Not Detect); Mycoplasma pneumoniae Not Detected (Not Detect); Parainfluenza Virus 1 Not Detected (Not Detect); Parainfluenza Virus 2 Not Detected (Not Detect); Parainfluenza Virus 3 Not Detected (Not Detect); Parainfluenza Virus 4 Not Detected (Not Detect); Respiratory Syncytial Virus Not Detected (Not Detect); SARS-CoV-2 Not Detected (Not Detect)
[2020-06-30] MEDS ORDERED: *HR* Dextrose 50 % in Water (Vial) 50 ML VIAL IVP PRN (00:56)
[2020-06-30] MEDS ORDERED: D5% in Water 1,000 ML IVC PRN (00:56)
[2020-06-30] MEDS ORDERED: Dextrose Gel 15 GM/37.5 ML TUBE PO PRN ×2 (00:56)
[2020-06-30] MEDS: Insulin LISPRO 300 UNITS/3 ML VIAL SUBQ SCH ×4 (02:17→17:24)
[2020-06-30 02:38] LABS: Basophils % 0.7 %; Eosinophils # 0.2 K/mcL (0.0-0.6); Eosinophils % 3.7 %; Hematocrit 24.4 % (37.5-50.1); Hemoglobin 7.3 g/dL (12.9-16.9); Immature Granulocytes % 0.4 % (0-4); Lymphocytes # 0.9 K/mcL (0.6-4.6); Lymphocytes % 16.4 %; Mean Corpuscular HGB Conc 29.9 g/dL (31.6-35.5); Mean Corpuscular Volume 100.4 fL (83.0-100.0); Mean Platelet Volume 10.3 fL (9.4-12.4); Monocytes # 0.3 K/mcL (0.0-1.3); Monocytes % 4.9 %; Neutrophils # 4.2 K/mcL (1.6-8.9); Platelet Count 255 K/mcL (140-400); Red Blood Count 2.43 M/mcL (4.19-5.50); Red Cell Distribution Width 16.5 % (11.5-14.5); Segmented Neutrophils % 73.9 %; White Blood Count 5.7 K/mcL (4.3-11.1)
[2020-06-30 02:52] LABS: BUN/Creatinine Ratio 33 (6-26); Blood Urea Nitrogen 19 mg/dL (8-23); Calcium 7.9 mg/dL (8.6-10.3); Carbon Dioxide 25 mEq/L (23-29); Chloride 114 mEq/L (98-107); Glucose 337 mg/dL (70-105); Osmolality,Calculated 314 (280-300); Potassium 3.5 mEq/L (3.5-5.1); Sodium 144 mEq/L (136-145); eGFR For African Americans > 60 (> 60); eGFR For Non-African Americans > 60 (> 60)
[2020-06-30] MEDS: Piperacillin/Tazobactam 3.375 GM in 0.9 % Sodium Chloride Mini Bag 100 ML IVPB SCH ×3 (06:25→20:40)
[2020-06-30] MEDS: *HR* Heparin 5,000 UNIT/ML VIAL SQ SCH ×2 (06:27→17:31)
[2020-06-30] MEDS: Aspirin 81 MG TAB.CHEW GTUBE SCH (07:42)
[2020-06-30] MEDS: levETIRAcetam 500 MG/5 ML UDC GTUBE SCH ×2 (07:42→20:41)
[2020-06-30] MEDS: Cyanocobalamin (B-12) 1,000 MCG TABLET GTUBE SCH (07:42)
[2020-06-30] MEDS: Acetylcysteine 10% 2 ML INHSOL IH SCH ×3 (11:32→22:31)
[2020-06-30] MEDS: Ipratropium/Albuterol Neb 3 ML IH SCH ×2 (15:41→22:31)
[2020-07-01] MEDS: Piperacillin/Tazobactam 3.375 GM in 0.9 % Sodium Chloride Mini Bag 100 ML IVPB SCH ×3 (06:06→21:46)
[2020-07-01] MEDS: *HR* Heparin 5,000 UNIT/ML VIAL SQ SCH ×2 (06:07→16:16)
[2020-07-01 07:03] LABS: Basophils # 0.1 K/mcL (0.0-0.2); Basophils % 0.7 %; Eosinophils # 0.2 K/mcL (0.0-0.6); Eosinophils % 2.2 %; Hematocrit 23.5 % (37.5-50.1); Hemoglobin 7.3 g/dL (12.9-16.9); Immature Granulocytes % 1.2 % (0-4); Lymphocytes # 1.3 K/mcL (0.6-4.6); Lymphocytes % 17.5 %; Mean Corpuscular HGB Conc 31.1 g/dL (31.6-35.5); Mean Corpuscular Hemoglobin 30.3 pg (28.0-33.3); Mean Corpuscular Volume 97.5 fL (83.0-100.0); Mean Platelet Volume 10.4 fL (9.4-12.4); Monocytes # 0.4 K/mcL (0.0-1.3); Neutrophils # 5.3 K/mcL (1.6-8.9); Platelet Count 243 K/mcL (140-400); Red Blood Count 2.41 M/mcL (4.19-5.50); Red Cell Distribution Width 15.9 % (11.5-14.5); Segmented Neutrophils % 73.4 %; White Blood Count 7.3 K/mcL (4.3-11.1)
[2020-07-01 07:15] LABS: BUN/Creatinine Ratio 31 (6-26); Blood Urea Nitrogen 15 mg/dL (8-23); Calcium 8.1 mg/dL (8.6-10.3); Carbon Dioxide 25 mEq/L (23-29); Chloride 113 mEq/L (98-107); Glucose 315 mg/dL (70-105); Osmolality,Calculated 313 (280-300); Potassium 3.4 mEq/L (3.5-5.1); Sodium 145 mEq/L (136-145); eGFR For African Americans > 60 (> 60); eGFR For Non-African Americans > 60 (> 60)
[2020-07-01] MEDS: Ipratropium/Albuterol Neb 3 ML IH SCH ×3 (07:30→21:44)
[2020-07-01] MEDS: Acetylcysteine 10% 2 ML INHSOL IH SCH ×3 (07:30→21:44)
[2020-07-01] MEDS: Aspirin 81 MG TAB.CHEW GTUBE SCH (08:22)
[2020-07-01] MEDS: levETIRAcetam 500 MG/5 ML UDC GTUBE SCH ×2 (08:22→21:46)
[2020-07-01] MEDS: Cyanocobalamin (B-12) 1,000 MCG TABLET GTUBE SCH (08:22)
[2020-07-01] MEDS: Insulin LISPRO 300 UNITS/3 ML VIAL SUBQ SCH ×4 (08:23→23:45)
[2020-07-02 05:13] LABS: Basophils % 0.5 %; Eosinophils # 0.2 K/mcL (0.0-0.6); Eosinophils % 3.2 %; Hematocrit 23.4 % (37.5-50.1); Immature Granulocytes % 0.5 % (0-4); Lymphocytes # 1.3 K/mcL (0.6-4.6); Mean Corpuscular HGB Conc 29.9 g/dL (31.6-35.5); Mean Corpuscular Volume 100.4 fL (83.0-100.0); Mean Platelet Volume 10.4 fL (9.4-12.4); Monocytes # 0.3 K/mcL (0.0-1.3); Monocytes % 5.8 %; Neutrophils # 3.9 K/mcL (1.6-8.9); Platelet Count 246 K/mcL (140-400); Red Blood Count 2.33 M/mcL (4.19-5.50); Red Cell Distribution Width 15.9 % (11.5-14.5); White Blood Count 5.7 K/mcL (4.3-11.1)
[2020-07-02] MEDS: Piperacillin/Tazobactam 3.375 GM in 0.9 % Sodium Chloride Mini Bag 100 ML IVPB SCH ×4 (05:15→20:47)
[2020-07-02] MEDS: *HR* Heparin 5,000 UNIT/ML VIAL SQ SCH ×2 (05:16→17:38)
[2020-07-02 05:19] LABS: BUN/Creatinine Ratio 33 (6-26); Blood Urea Nitrogen 17 mg/dL (8-23); Calcium 7.9 mg/dL (8.6-10.3); Carbon Dioxide 28 mEq/L (23-29); Chloride 109 mEq/L (98-107); Glucose 238 mg/dL (70-105); Osmolality,Calculated 305 (280-300); Sodium 143 mEq/L (136-145); eGFR For African Americans > 60 (> 60); eGFR For Non-African Americans > 60 (> 60)
[2020-07-02] MEDS: Insulin LISPRO 300 UNITS/3 ML VIAL SUBQ SCH ×3 (05:35→17:50)
[2020-07-02] MEDS: Ipratropium/Albuterol Neb 3 ML IH SCH ×4 (07:26→22:39)
[2020-07-02] MEDS: Acetylcysteine 10% 2 ML INHSOL IH SCH ×4 (07:26→22:39)
[2020-07-02] MEDS: Aspirin 81 MG TAB.CHEW GTUBE SCH (09:56)
[2020-07-02] MEDS: levETIRAcetam 500 MG/5 ML UDC GTUBE SCH ×2 (09:57→20:48)
[2020-07-02] MEDS: Cyanocobalamin (B-12) 1,000 MCG TABLET GTUBE SCH (09:57)
[2020-07-02] MEDS ORDERED: Potassium Chloride 40 MEQ, Lidocaine 1% 2 ML in 0.9 % Sodium Chloride 500 ML IVPB ONE (10:01)
[2020-07-02] MEDS ORDERED: 0.9 % Sodium Chloride 250 ML ONE (11:24)
[2020-07-02] MEDS ORDERED: E-Z-PAQUE (BARIUM SULF) SUSP 1 BOTTLE PO ONE (15:22)
[2020-07-02] MEDS ORDERED: E-Z-HD (BARIUM SULF) SUSPENSION PO ONE (15:22)
[2020-07-03] MEDS: Insulin LISPRO 300 UNITS/3 ML VIAL SUBQ SCH ×3 (00:13→11:28)
[2020-07-03 02:22] LABS: Basophils # 0.1 K/mcL (0.0-0.2); Eosinophils # 0.2 K/mcL (0.0-0.6); Eosinophils % 3.3 %; Hematocrit 29.1 % (37.5-50.1); Immature Granulocytes % 0.5 % (0-4); Lymphocytes # 1.5 K/mcL (0.6-4.6); Lymphocytes % 25.6 %; Mean Corpuscular HGB Conc 30.2 g/dL (31.6-35.5); Mean Corpuscular Hemoglobin 29.8 pg (28.0-33.3); Mean Corpuscular Volume 98.6 fL (83.0-100.0); Mean Platelet Volume 10.3 fL (9.4-12.4); Monocytes # 0.4 K/mcL (0.0-1.3); Monocytes % 7.1 %; Neutrophils # 3.6 K/mcL (1.6-8.9); Platelet Count 231 K/mcL (140-400); Red Blood Count 2.95 M/mcL (4.19-5.50); Red Cell Distribution Width 15.7 % (11.5-14.5); Segmented Neutrophils % 62.5 %; White Blood Count 5.7 K/mcL (4.3-11.1)
[2020-07-03 02:25] LABS: Hemoglobin 8.8 g/dL (12.9-16.9)
[2020-07-03 02:43] LABS: BUN/Creatinine Ratio 37 (6-26); Blood Urea Nitrogen 16 mg/dL (8-23); Calcium 7.8 mg/dL (8.6-10.3); Carbon Dioxide 26 mEq/L (23-29); Chloride 110 mEq/L (98-107); Glucose 131 mg/dL (70-105); Osmolality,Calculated 297 (280-300); Potassium 3.1 mEq/L (3.5-5.1); Sodium 142 mEq/L (136-145); eGFR For African Americans > 60 (> 60); eGFR For Non-African Americans > 60 (> 60)
[2020-07-03] MEDS: *HR* Heparin 5,000 UNIT/ML VIAL SQ SCH (05:46)
[2020-07-03] MEDS: Piperacillin/Tazobactam 3.375 GM in 0.9 % Sodium Chloride Mini Bag 100 ML IVPB SCH ×2 (05:47→12:07)
[2020-07-03] MEDS: Ipratropium/Albuterol Neb 3 ML IH SCH ×2 (07:24→16:43)
[2020-07-03] MEDS: Acetylcysteine 10% 2 ML INHSOL IH SCH ×2 (07:24→16:43)
[2020-07-03] MEDS ORDERED: Potassium Chloride 40 MEQ, Lidocaine 1% 2 ML in 0.9 % Sodium Chloride 500 ML IVPB ONE (07:34)
[2020-07-03] MEDS: Aspirin 81 MG TAB.CHEW GTUBE SCH (07:40)
[2020-07-03] MEDS: Cyanocobalamin (B-12) 1,000 MCG TABLET GTUBE SCH (07:40)
[2020-07-03] MEDS: levETIRAcetam 500 MG/5 ML UDC GTUBE SCH (07:40)
[2020-07-03 10:13] LABS: Magnesium 1.6 mg/dL (1.6-2.6)
[2020-07-03] MEDS ORDERED: Magnesium Sulfate 1 GM/102 ML PIGGYBACK IVPB ONE (10:37)
[2020-07-03 16:15] VITALS: BP 120/61
== END 2020-07-03 18:14 | disposition home health service (06) ==
LOC: 2ANU 11:42 → EMEROOARM 11:42 → SUATTDRO 15:37 → 2ANU 16:48
PROVIDERS: ADMIT Internal Medicine; ATTEND Internal Medicine

== ENCOUNTER 2020-09-08 08:01 | Inpatient (IN) ==
[2020-09-08] MEDS ORDERED: 0.9 % Sodium Chloride 1,000 ML IVC ONE (08:18)
[2020-09-08 09:00] LABS: Basophils # 0.1 K/mcL (0.0-0.2); Basophils % 0.7 %; Eosinophils # 0.2 K/mcL (0.0-0.6); Eosinophils % 1.3 %; Hematocrit 43.4 % (37.5-50.1); Hemoglobin 13.6 g/dL (12.9-16.9); Immature Granulocytes % 0.6 % (0-4); Lymphocytes # 2.8 K/mcL (0.6-4.6); Lymphocytes % 22.1 %; Mean Corpuscular HGB Conc 31.3 g/dL (31.6-35.5); Mean Corpuscular Hemoglobin 28.2 pg (28.0-33.3); Mean Platelet Volume 10.6 fL (9.4-12.4); Monocytes % 7.5 %; Neutrophils # 8.5 K/mcL (1.6-8.9); Platelet Count 458 K/mcL (140-400); Red Blood Count 4.82 M/mcL (4.19-5.50); Red Cell Distribution Width 13.4 % (11.5-14.5); Segmented Neutrophils % 67.8 %; White Blood Count 12.6 K/mcL (4.3-11.1)
[2020-09-08 09:16] LABS: BUN/Creatinine Ratio 42 (6-26); Blood Urea Nitrogen 33 mg/dL (8-23); Calcium 10.1 mg/dL (8.6-10.3); Carbon Dioxide 30 mEq/L (23-29); Chloride 95 mEq/L (98-107); Glucose 219 mg/dL (70-105); Osmolality,Calculated 298 (280-300); Sodium 137 mEq/L (136-145); eGFR For African Americans > 60 (> 60); eGFR For Non-African Americans > 60 (> 60)
[2020-09-08 09:16] LABS: Bacteria,Urine Few per hpf (None-Few); Bilirubin,Urine Negative (Negative); Blood,Urine Negative (Negative); Clarity,Urine Clear (Clear); Color,Urine Light-Yellow (Yellow); Glucose,Urine (UA) >=1000 mg/dL (Normal); Ketones,Urine Negative (Negative); Leukocyte Esterase,Urine Trace (Negative); Nitrite,Urine Negative (Negative); Protein,Urine Negative (Neg-Trace); RBC,Urine 0-3 per hpf (0-3); Specific Gravity,Urine 1.016 (1.010-1.025); Urobilinogen,Urine Normal (Normal)
[2020-09-08] MEDS ORDERED: 0.9 % Sodium Chloride 500 ML IVC ONE (09:33)
[2020-09-08] MEDS ORDERED: Piperacillin/Tazobactam 3.375 GM in 0.9 % Sodium Chloride Mini Bag 100 ML IVPB ONE (09:51)
[2020-09-08] MEDS ORDERED: Isovue-370 500 ML BOTTLE IVP ONE (09:53)
[2020-09-08] MEDS ORDERED: Ondansetron 4 MG/2 ML VIAL IVP PRN (11:22)
[2020-09-08] MEDS ORDERED: Naloxone 0.4 MG/ML INJ IVP PRN (11:22)
[2020-09-08] MEDS ORDERED: D5% in Water 1,000 ML IVC PRN (11:33)
[2020-09-08] MEDS ORDERED: Dextrose Gel 15 GM/37.5 ML TUBE PO PRN ×2 (11:33)
[2020-09-08] MEDS ORDERED: *HR* Dextrose 50 % in Water (Vial) 50 ML VIAL IVP PRN (11:33)
[2020-09-08] MEDS ORDERED: Vancomycin (wt based) 1,000 MG VIAL IVPB SCH (12:00)
[2020-09-08] MEDS: Insulin LISPRO 300 UNITS/3 ML VIAL SUBQ SCH ×3 (12:00→21:38)
[2020-09-08] MEDS: levETIRAcetam 500 MG/5 ML UDC GTUBE SCH (21:38)
[2020-09-08] MEDS: Piperacillin/Tazobactam 3.375 GM in 0.9 % Sodium Chloride Mini Bag 100 ML IVPB SCH (21:38)
[2020-09-09] MEDS: Insulin LISPRO 300 UNITS/3 ML VIAL SUBQ SCH ×7 (00:02→23:57)
[2020-09-09 01:55] LABS: Hematocrit 33.7 % (37.5-50.1); Mean Corpuscular HGB Conc 31.5 g/dL (31.6-35.5); Mean Corpuscular Hemoglobin 28.3 pg (28.0-33.3); Mean Corpuscular Volume 89.9 fL (83.0-100.0); Platelet Count 359 K/mcL (140-400); Red Blood Count 3.75 M/mcL (4.19-5.50); Red Cell Distribution Width 13.6 % (11.5-14.5); White Blood Count 11.7 K/mcL (4.3-11.1)
[2020-09-09 01:56] LABS: Hemoglobin 10.6 g/dL (12.9-16.9)
[2020-09-09 02:20] LABS: BUN/Creatinine Ratio 44 (6-26); Blood Urea Nitrogen 28 mg/dL (8-23); Calcium 8.7 mg/dL (8.6-10.3); Carbon Dioxide 28 mEq/L (23-29); Chloride 99 mEq/L (98-107); Glucose 224 mg/dL (70-105); Osmolality,Calculated 296 (280-300); Potassium 3.9 mEq/L (3.5-5.1); Sodium 137 mEq/L (136-145); eGFR For African Americans > 60 (> 60); eGFR For Non-African Americans > 60 (> 60)
[2020-09-09] MEDS: Piperacillin/Tazobactam 3.375 GM in 0.9 % Sodium Chloride Mini Bag 100 ML IVPB SCH ×3 (05:09→20:51)
[2020-09-09] MEDS: levETIRAcetam 500 MG/5 ML UDC GTUBE SCH ×2 (10:56→21:48)
[2020-09-09] MEDS: Aspirin 81 MG TAB.CHEW GTUBE SCH (10:59)
[2020-09-09] MEDS ORDERED: Ipratropium/Albuterol Neb 3 ML IH PRN (17:00)
[2020-09-09] MEDS: *HR* Heparin 5,000 UNIT/ML VIAL SQ SCH (18:47)
[2020-09-10] MEDS: *HR* Heparin 5,000 UNIT/ML VIAL SQ SCH ×2 (04:37→17:46)
[2020-09-10] MEDS: Insulin LISPRO 300 UNITS/3 ML VIAL SUBQ SCH ×6 (04:38→23:06)
[2020-09-10] MEDS: Piperacillin/Tazobactam 3.375 GM in 0.9 % Sodium Chloride Mini Bag 100 ML IVPB SCH ×3 (04:38→19:45)
[2020-09-10 07:20] LABS: ABG Base Excess 4 mEq/L (-2 to 3); ABG HCO3 28 mEq/L (21-27); ABG Oxygen Saturation 90 % (95-98); ABG PCO2 40 mmHg (35-45); ABG PH 7.46 pH Units (7.32-7.45); ABG PO2 55 mmHg (85-104); ABG TCO2 29 mEq/L (20-26)
[2020-09-10] MEDS ORDERED: Lidocaine Viscous Oral Soln 15 ML SOLUTION ONE (09:04)
[2020-09-10] MEDS ORDERED: *HR* FentaNYL (PF) 100 MCG/2 ML VIAL ONE (09:16)
[2020-09-10] MEDS ORDERED: *HR* Midazolam HCl 5 MG/5 ML VIAL IVP ONE ×2 (09:16)
[2020-09-10] MEDS ORDERED: Lidocaine Viscous Oral Soln 15 ML SOLUTION MM ONE (09:16)
[2020-09-10] MEDS ORDERED: *HR* FentaNYL (PF) 100 MCG/2 ML VIAL IVP ONE (09:16)
[2020-09-10] MEDS: levETIRAcetam 500 MG/5 ML UDC GTUBE SCH ×2 (10:56→19:46)
[2020-09-10] MEDS: Cyanocobalamin (B-12) 1,000 MCG TABLET GTUBE SCH (10:56)
[2020-09-10] MEDS: Aspirin 81 MG TAB.CHEW GTUBE SCH (10:58)
[2020-09-10 14:05] LABS: eGFR For African Americans > 60 (> 60); eGFR For Non-African Americans > 60 (> 60)
[2020-09-10 16:18] LABS: Adenovirus Not Detected (Not Detect); Coronavirus 229E Not Detected (Not Detect); Coronavirus HKU1 Not Detected (Not Detect); Coronavirus NL63 Not Detected (Not Detect); Coronavirus OC43 Not Detected (Not Detect); Human Metapneumovirus Not Detected (Not Detect); Human Rhinovirus/Enterovirus Not Detected (Not Detect); Influenza A Subtype 2009 H1 Not Detected (Not Detect); Influenza B Not Detected (Not Detect); Parainfluenza Virus 1 Not Detected (Not Detect); Parainfluenza Virus 2 Not Detected (Not Detect); Parainfluenza Virus 3 Not Detected (Not Detect); Parainfluenza Virus 4 Not Detected (Not Detect); Respiratory Syncytial Virus Not Detected (Not Detect); SARS-CoV-2 Not Detected (Not Detect)
[2020-09-10 16:19] LABS: Bordetella Pertussis Not Detected (Not Detect); Chlamydophila pneumoniae Not Detected (Not Detect); Mycoplasma pneumoniae Not Detected (Not Detect)
[2020-09-11 01:26] LABS: Basophils # 0.1 K/mcL (0.0-0.2); Basophils % 0.5 %; Eosinophils # 0.1 K/mcL (0.0-0.6); Hematocrit 31.7 % (37.5-50.1); Hemoglobin 10.2 g/dL (12.9-16.9); Immature Granulocytes % 0.6 % (0-4); Lymphocytes # 1.5 K/mcL (0.6-4.6); Lymphocytes % 13.8 %; Mean Corpuscular HGB Conc 32.2 g/dL (31.6-35.5); Mean Corpuscular Hemoglobin 28.8 pg (28.0-33.3); Mean Corpuscular Volume 89.5 fL (83.0-100.0); Mean Platelet Volume 10.6 fL (9.4-12.4); Monocytes % 9.1 %; Neutrophils # 8.2 K/mcL (1.6-8.9); Platelet Count 312 K/mcL (140-400); Red Blood Count 3.54 M/mcL (4.19-5.50); Red Cell Distribution Width 13.6 % (11.5-14.5); White Blood Count 10.9 K/mcL (4.3-11.1)
[2020-09-11 01:39] LABS: BUN/Creatinine Ratio 28 (6-26); Blood Urea Nitrogen 17 mg/dL (8-23); Calcium 8.1 mg/dL (8.6-10.3); Carbon Dioxide 28 mEq/L (23-29); Chloride 102 mEq/L (98-107); Glucose 207 mg/dL (70-105); Magnesium 1.9 mg/dL (1.6-2.6); Osmolality,Calculated 294 (280-300); Phosphorous 3.2 mg/dL (2.7-4.5); Potassium 3.9 mEq/L (3.5-5.1); Sodium 138 mEq/L (136-145); eGFR For African Americans > 60 (> 60); eGFR For Non-African Americans > 60 (> 60)
[2020-09-11] MEDS: Piperacillin/Tazobactam 3.375 GM in 0.9 % Sodium Chloride Mini Bag 100 ML IVPB SCH ×3 (04:36→18:24)
[2020-09-11] MEDS: Insulin LISPRO 300 UNITS/3 ML VIAL SUBQ SCH ×5 (04:37→20:48)
[2020-09-11] MEDS: *HR* Heparin 5,000 UNIT/ML VIAL SQ SCH ×2 (05:56→17:04)
[2020-09-11] MEDS: levETIRAcetam 500 MG/5 ML UDC GTUBE SCH ×2 (08:23→20:48)
[2020-09-11] MEDS: Aspirin 81 MG TAB.CHEW GTUBE SCH (08:24)
[2020-09-11] MEDS: Cyanocobalamin (B-12) 1,000 MCG TABLET GTUBE SCH (08:24)
[2020-09-11] MEDS: SODIUM CHLORIDE 0.9% IVPB SCH (23:08)
[2020-09-11] MEDS: VANCOMYCIN IVPB SCH (23:08)
[2020-09-12] MEDS: Insulin LISPRO 300 UNITS/3 ML VIAL SUBQ SCH ×6 (00:49→22:29)
[2020-09-12 02:03] LABS: Basophils % 0.5 %; Eosinophils # 0.1 K/mcL (0.0-0.6); Eosinophils % 1.8 %; Hematocrit 29.5 % (37.5-50.1); Hemoglobin 9.5 g/dL (12.9-16.9); Immature Granulocytes % 0.4 % (0-4); Lymphocytes # 1.4 K/mcL (0.6-4.6); Mean Corpuscular HGB Conc 32.2 g/dL (31.6-35.5); Mean Corpuscular Hemoglobin 28.8 pg (28.0-33.3); Mean Corpuscular Volume 89.4 fL (83.0-100.0); Mean Platelet Volume 10.5 fL (9.4-12.4); Monocytes # 0.6 K/mcL (0.0-1.3); Monocytes % 7.3 %; Neutrophils # 5.8 K/mcL (1.6-8.9); Platelet Count 304 K/mcL (140-400); Red Cell Distribution Width 13.6 % (11.5-14.5)
[2020-09-12 02:21] LABS: BUN/Creatinine Ratio 24 (6-26); Blood Urea Nitrogen 14 mg/dL (8-23); Calcium 8.2 mg/dL (8.6-10.3); Carbon Dioxide 28 mEq/L (23-29); Chloride 103 mEq/L (98-107); Glucose 205 mg/dL (70-105); Magnesium 1.7 mg/dL (1.6-2.6); Osmolality,Calculated 296 (280-300); Phosphorous 2.6 mg/dL (2.7-4.5); Potassium 3.6 mEq/L (3.5-5.1); Sodium 140 mEq/L (136-145); eGFR For African Americans > 60 (> 60); eGFR For Non-African Americans > 60 (> 60)
[2020-09-12] MEDS: Piperacillin/Tazobactam 3.375 GM in 0.9 % Sodium Chloride Mini Bag 100 ML IVPB SCH ×2 (03:13→11:17)
[2020-09-12] MEDS: *HR* Heparin 5,000 UNIT/ML VIAL SQ SCH ×2 (05:53→17:29)
[2020-09-12] MEDS: Cyanocobalamin (B-12) 1,000 MCG TABLET GTUBE SCH (08:47)
[2020-09-12] MEDS: Aspirin 81 MG TAB.CHEW GTUBE SCH (08:47)
[2020-09-12] MEDS: levETIRAcetam 500 MG/5 ML UDC GTUBE SCH ×2 (08:47→22:30)
[2020-09-12] MEDS: SODIUM CHLORIDE 0.9% IVPB SCH (12:32)
[2020-09-12] MEDS: VANCOMYCIN IVPB SCH (12:32)
[2020-09-12] MEDS ORDERED: Lidocaine -MPF 1% 5 ML AMPUL INFILT ONE (13:42)
[2020-09-12] MEDS ORDERED: metroNIDAZOLE 500 MG TABLET PO SCH (15:00)
[2020-09-12] MEDS: metroNIDAZOLE 500 MG TABLET GTUBE SCH ×2 (16:26→22:30)
[2020-09-12] MEDS: cefTRIAXone 2,000 MG in Water for inj. (sterile) 20 ML IVP SCH (18:12)
[2020-09-13] MEDS: Insulin LISPRO 300 UNITS/3 ML VIAL SUBQ SCH ×6 (01:05→21:23)
[2020-09-13] MEDS: SODIUM CHLORIDE 0.9% IVPB SCH ×2 (01:17→13:31)
[2020-09-13] MEDS: VANCOMYCIN IVPB SCH ×2 (01:17→13:31)
[2020-09-13 02:32] LABS: Basophils % 0.5 %; Eosinophils # 0.2 K/mcL (0.0-0.6); Eosinophils % 1.8 %; Hematocrit 29.9 % (37.5-50.1); Hemoglobin 9.7 g/dL (12.9-16.9); Immature Granulocytes % 0.2 % (0-4); Lymphocytes # 1.6 K/mcL (0.6-4.6); Lymphocytes % 19.3 %; Mean Corpuscular HGB Conc 32.4 g/dL (31.6-35.5); Mean Corpuscular Hemoglobin 29.4 pg (28.0-33.3); Mean Corpuscular Volume 90.6 fL (83.0-100.0); Mean Platelet Volume 10.6 fL (9.4-12.4); Monocytes # 0.7 K/mcL (0.0-1.3); Monocytes % 8.4 %; Neutrophils # 5.7 K/mcL (1.6-8.9); Platelet Count 336 K/mcL (140-400); Red Cell Distribution Width 13.6 % (11.5-14.5); Segmented Neutrophils % 69.8 %; White Blood Count 8.2 K/mcL (4.3-11.1)
[2020-09-13 02:46] LABS: BUN/Creatinine Ratio 31 (6-26); Blood Urea Nitrogen 16 mg/dL (8-23); Calcium 8.5 mg/dL (8.6-10.3); Carbon Dioxide 30 mEq/L (23-29); Chloride 102 mEq/L (98-107); Glucose 226 mg/dL (70-105); Magnesium 1.8 mg/dL (1.6-2.6); Osmolality,Calculated 300 (280-300); Phosphorous 2.9 mg/dL (2.7-4.5); Potassium 3.9 mEq/L (3.5-5.1); Sodium 141 mEq/L (136-145); eGFR For African Americans > 60 (> 60); eGFR For Non-African Americans > 60 (> 60)
[2020-09-13] MEDS: *HR* Heparin 5,000 UNIT/ML VIAL SQ SCH ×2 (05:07→17:00)
[2020-09-13] MEDS: Cyanocobalamin (B-12) 1,000 MCG TABLET GTUBE SCH (08:48)
[2020-09-13] MEDS: Aspirin 81 MG TAB.CHEW GTUBE SCH (08:48)
[2020-09-13] MEDS: metroNIDAZOLE 500 MG TABLET GTUBE SCH ×3 (08:48→21:21)
[2020-09-13] MEDS: levETIRAcetam 500 MG/5 ML UDC GTUBE SCH ×2 (08:50→21:22)
[2020-09-13] MEDS: cefTRIAXone 2,000 MG in Water for inj. (sterile) 20 ML IVP SCH (18:39)
[2020-09-14] MEDS: Insulin LISPRO 300 UNITS/3 ML VIAL SUBQ SCH ×6 (00:34→20:07)
[2020-09-14 01:48] LABS: Basophils # 0.1 K/mcL (0.0-0.2); Basophils % 0.9 %; Eosinophils # 0.2 K/mcL (0.0-0.6); Eosinophils % 2.2 %; Hematocrit 28.6 % (37.5-50.1); Hemoglobin 8.7 g/dL (12.9-16.9); Immature Granulocytes % 0.2 % (0-4); Lymphocytes # 1.8 K/mcL (0.6-4.6); Lymphocytes % 21.6 %; Mean Corpuscular HGB Conc 30.4 g/dL (31.6-35.5); Mean Corpuscular Hemoglobin 27.9 pg (28.0-33.3); Mean Corpuscular Volume 91.7 fL (83.0-100.0); Monocytes # 0.6 K/mcL (0.0-1.3); Monocytes % 7.9 %; Neutrophils # 5.5 K/mcL (1.6-8.9); Platelet Count 308 K/mcL (140-400); Red Blood Count 3.12 M/mcL (4.19-5.50); Red Cell Distribution Width 13.6 % (11.5-14.5); Segmented Neutrophils % 67.2 %; White Blood Count 8.2 K/mcL (4.3-11.1)
[2020-09-14 02:06] LABS: BUN/Creatinine Ratio 54 (6-26); Blood Urea Nitrogen 26 mg/dL (8-23); Calcium 8.4 mg/dL (8.6-10.3); Carbon Dioxide 31 mEq/L (23-29); Chloride 103 mEq/L (98-107); Glucose 151 mg/dL (70-105); Osmolality,Calculated 300 (280-300); Potassium 3.6 mEq/L (3.5-5.1); Sodium 141 mEq/L (136-145); eGFR For African Americans > 60 (> 60); eGFR For Non-African Americans > 60 (> 60)
[2020-09-14] MEDS: *HR* Heparin 5,000 UNIT/ML VIAL SQ SCH ×2 (05:00→16:48)
[2020-09-14] MEDS: Aspirin 81 MG TAB.CHEW GTUBE SCH (09:54)
[2020-09-14] MEDS: Cyanocobalamin (B-12) 1,000 MCG TABLET GTUBE SCH (09:54)
[2020-09-14] MEDS: levETIRAcetam 500 MG/5 ML UDC GTUBE SCH ×2 (09:55→20:11)
[2020-09-14] MEDS: metroNIDAZOLE 500 MG TABLET GTUBE SCH ×3 (09:56→20:08)
[2020-09-14] MEDS: VANCOMYCIN IVPB SCH ×2 (12:58)
[2020-09-14] MEDS: SODIUM CHLORIDE 0.9% IVPB SCH ×2 (12:58)
[2020-09-14] MEDS ORDERED: Water for inj. (sterile) 20 ML IV ONE (18:37)
[2020-09-14] MEDS: cefTRIAXone 2,000 MG in Water for inj. (sterile) 20 ML IVP SCH (18:45)
[2020-09-15] MEDS: SODIUM CHLORIDE 0.9% IVPB SCH ×2 (00:11→12:25)
[2020-09-15] MEDS: VANCOMYCIN IVPB SCH ×2 (00:11→12:25)
[2020-09-15] MEDS: Insulin LISPRO 300 UNITS/3 ML VIAL SUBQ SCH ×6 (00:56→21:22)
[2020-09-15] MEDS: *HR* Heparin 5,000 UNIT/ML VIAL SQ SCH ×2 (04:40→17:37)
[2020-09-15 05:50] LABS: BUN/Creatinine Ratio 38 (6-26); Blood Urea Nitrogen 20 mg/dL (8-23); Calcium 8.4 mg/dL (8.6-10.3); Carbon Dioxide 32 mEq/L (23-29); Chloride 103 mEq/L (98-107); Glucose 250 mg/dL (70-105); Osmolality,Calculated 297 (280-300); Potassium 3.4 mEq/L (3.5-5.1); Sodium 138 mEq/L (136-145); eGFR For African Americans > 60 (> 60); eGFR For Non-African Americans > 60 (> 60)
[2020-09-15 06:34] LABS: Basophils # 0.1 K/mcL (0.0-0.2); Basophils % 0.9 %; Eosinophils # 0.2 K/mcL (0.0-0.6); Eosinophils % 2.3 %; Hematocrit 28.8 % (37.5-50.1); Hemoglobin 8.9 g/dL (12.9-16.9); Immature Granulocytes % 0.5 % (0-4); Lymphocytes # 1.5 K/mcL (0.6-4.6); Lymphocytes % 17.7 %; Mean Corpuscular HGB Conc 30.9 g/dL (31.6-35.5); Mean Corpuscular Hemoglobin 28.3 pg (28.0-33.3); Mean Corpuscular Volume 91.7 fL (83.0-100.0); Mean Platelet Volume 10.8 fL (9.4-12.4); Monocytes # 0.6 K/mcL (0.0-1.3); Monocytes % 7.4 %; Neutrophils # 6.2 K/mcL (1.6-8.9); Platelet Count 335 K/mcL (140-400); Red Blood Count 3.14 M/mcL (4.19-5.50); Red Cell Distribution Width 13.7 % (11.5-14.5); Segmented Neutrophils % 71.2 %; White Blood Count 8.7 K/mcL (4.3-11.1)
[2020-09-15] MEDS ORDERED: Potassium Chloride Elixir 20 MEQ/15 ML UDC GTUBE ONE (07:16)
[2020-09-15] MEDS: Aspirin 81 MG TAB.CHEW GTUBE SCH (08:00)
[2020-09-15] MEDS: levETIRAcetam 500 MG/5 ML UDC GTUBE SCH ×2 (08:01→20:57)
[2020-09-15] MEDS: Cyanocobalamin (B-12) 1,000 MCG TABLET GTUBE SCH (08:03)
[2020-09-15] MEDS: metroNIDAZOLE 500 MG TABLET GTUBE SCH ×3 (08:03→20:57)
[2020-09-15] MEDS: cefTRIAXone 2,000 MG in Water for inj. (sterile) 20 ML IVP SCH (17:37)
[2020-09-16] MEDS: VANCOMYCIN IVPB SCH ×2 (00:02→11:55)
[2020-09-16] MEDS: SODIUM CHLORIDE 0.9% IVPB SCH ×2 (00:02→11:55)
[2020-09-16] MEDS: Insulin LISPRO 300 UNITS/3 ML VIAL SUBQ SCH ×6 (00:44→20:50)
[2020-09-16 05:33] LABS: Basophils % 0.7 %; Hemoglobin 8.8 g/dL (12.9-16.9); Immature Granulocytes % 0.5 % (0-4); Mean Corpuscular Volume 91.7 fL (83.0-100.0); Monocytes % 5.6 %; Segmented Neutrophils % 82.8 %
[2020-09-16 05:35] LABS: Basophils # 0.1 K/mcL (0.0-0.2); Eosinophils # 0.1 K/mcL (0.0-0.6); Eosinophils % 1.5 %; Hematocrit 28.9 % (37.5-50.1); Immature Platelets 2.1 % (1.1-6.1); Lymphocytes # 0.8 K/mcL (0.6-4.6); Lymphocytes % 8.9 %; Mean Corpuscular HGB Conc 30.4 g/dL (31.6-35.5); Mean Corpuscular Hemoglobin 27.9 pg (28.0-33.3); Mean Platelet Volume 10.3 fL (9.4-12.4); Monocytes # 0.5 K/mcL (0.0-1.3); Platelet Count 271 K/mcL (140-400); Red Blood Count 3.15 M/mcL (4.19-5.50); White Blood Count 8.5 K/mcL (4.3-11.1)
[2020-09-16] MEDS: *HR* Heparin 5,000 UNIT/ML VIAL SQ SCH ×2 (05:50→16:15)
[2020-09-16 05:52] LABS: BUN/Creatinine Ratio 47 (6-26); Blood Urea Nitrogen 23 mg/dL (8-23); Calcium 8.2 mg/dL (8.6-10.3); Carbon Dioxide 29 mEq/L (23-29); Chloride 103 mEq/L (98-107); Glucose 265 mg/dL (70-105); Osmolality,Calculated 295 (280-300); Potassium 3.3 mEq/L (3.5-5.1); Sodium 136 mEq/L (136-145); eGFR For African Americans > 60 (> 60); eGFR For Non-African Americans > 60 (> 60)
[2020-09-16] MEDS ORDERED: Potassium Chloride Elixir 20 MEQ/15 ML UDC GTUBE ONE (07:24)
[2020-09-16] MEDS: metroNIDAZOLE 500 MG TABLET GTUBE SCH ×3 (09:23→20:36)
[2020-09-16] MEDS: Aspirin 81 MG TAB.CHEW GTUBE SCH (09:23)
[2020-09-16] MEDS: levETIRAcetam 500 MG/5 ML UDC GTUBE SCH ×2 (09:23→20:36)
[2020-09-16] MEDS: Cyanocobalamin (B-12) 1,000 MCG TABLET GTUBE SCH (09:23)
[2020-09-16] MEDS: cefTRIAXone 2,000 MG in Water for inj. (sterile) 20 ML IVP SCH (18:00)
[2020-09-17] MEDS: Insulin LISPRO 300 UNITS/3 ML VIAL SUBQ SCH ×6 (00:44→20:54)
[2020-09-17] MEDS: SODIUM CHLORIDE 0.9% IVPB SCH ×2 (00:44→12:23)
[2020-09-17] MEDS: VANCOMYCIN IVPB SCH ×2 (00:44→12:23)
[2020-09-17 02:36] LABS: Basophils % 0.5 %; Eosinophils # 0.1 K/mcL (0.0-0.6); Eosinophils % 1.9 %; Hematocrit 29.4 % (37.5-50.1); Hemoglobin 9.4 g/dL (12.9-16.9); Immature Granulocytes % 0.7 % (0-4); Lymphocytes # 1.2 K/mcL (0.6-4.6); Lymphocytes % 19.6 %; Mean Corpuscular Hemoglobin 28.8 pg (28.0-33.3); Mean Corpuscular Volume 90.2 fL (83.0-100.0); Mean Platelet Volume 10.4 fL (9.4-12.4); Monocytes # 0.5 K/mcL (0.0-1.3); Monocytes % 7.6 %; Neutrophils # 4.1 K/mcL (1.6-8.9); Platelet Count 304 K/mcL (140-400); Red Blood Count 3.26 M/mcL (4.19-5.50); Segmented Neutrophils % 69.7 %; White Blood Count 5.9 K/mcL (4.3-11.1)
[2020-09-17 02:57] LABS: BUN/Creatinine Ratio 42 (6-26); Blood Urea Nitrogen 22 mg/dL (8-23); Calcium 7.9 mg/dL (8.6-10.3); Carbon Dioxide 26 mEq/L (23-29); Chloride 103 mEq/L (98-107); Glucose 241 mg/dL (70-105); Osmolality,Calculated 297 (280-300); Potassium 3.5 mEq/L (3.5-5.1); Sodium 138 mEq/L (136-145); eGFR For African Americans > 60 (> 60); eGFR For Non-African Americans > 60 (> 60)
[2020-09-17] MEDS: *HR* Heparin 5,000 UNIT/ML VIAL SQ SCH ×2 (05:17→17:01)
[2020-09-17] MEDS: Cyanocobalamin (B-12) 1,000 MCG TABLET GTUBE SCH (07:29)
[2020-09-17] MEDS: Aspirin 81 MG TAB.CHEW GTUBE SCH (07:30)
[2020-09-17] MEDS: levETIRAcetam 500 MG/5 ML UDC GTUBE SCH ×2 (07:30→20:42)
[2020-09-17] MEDS: metroNIDAZOLE 500 MG TABLET GTUBE SCH ×3 (07:30→20:42)
[2020-09-17] MEDS: cefTRIAXone 2,000 MG in Water for inj. (sterile) 20 ML IVP SCH (17:01)
[2020-09-18] MEDS: Insulin LISPRO 300 UNITS/3 ML VIAL SUBQ SCH ×4 (00:56→12:42)
[2020-09-18 04:28] LABS: Basophils # 0.1 K/mcL (0.0-0.2); Basophils % 0.7 %; Eosinophils # 0.2 K/mcL (0.0-0.6); Eosinophils % 2.9 %; Hematocrit 29.4 % (37.5-50.1); Hemoglobin 9.4 g/dL (12.9-16.9); Immature Granulocytes % 0.4 % (0-4); Lymphocytes # 1.4 K/mcL (0.6-4.6); Lymphocytes % 20.2 %; Mean Corpuscular Hemoglobin 28.8 pg (28.0-33.3); Mean Corpuscular Volume 90.2 fL (83.0-100.0); Mean Platelet Volume 9.9 fL (9.4-12.4); Monocytes # 0.8 K/mcL (0.0-1.3); Monocytes % 11.3 %; Neutrophils # 4.5 K/mcL (1.6-8.9); Platelet Count 302 K/mcL (140-400); Red Blood Count 3.26 M/mcL (4.19-5.50); Red Cell Distribution Width 14.5 % (11.5-14.5); Segmented Neutrophils % 64.5 %
[2020-09-18 04:46] LABS: BUN/Creatinine Ratio 37 (6-26); Blood Urea Nitrogen 18 mg/dL (8-23); Calcium 8.1 mg/dL (8.6-10.3); Carbon Dioxide 30 mEq/L (23-29); Chloride 100 mEq/L (98-107); Glucose 251 mg/dL (70-105); Osmolality,Calculated 302 (280-300); Potassium 3.3 mEq/L (3.5-5.1); Sodium 141 mEq/L (136-145); eGFR For African Americans > 60 (> 60); eGFR For Non-African Americans > 60 (> 60)
[2020-09-18 05:18] LABS: Platelet Estimate Normal (Normal)
[2020-09-18] MEDS: *HR* Heparin 5,000 UNIT/ML VIAL SQ SCH (05:28)
[2020-09-18] MEDS ORDERED: VANCOMYCIN IVPB SCH (06:00)
[2020-09-18] MEDS ORDERED: SODIUM CHLORIDE 0.9% IVPB SCH (06:00)
[2020-09-18] MEDS: levETIRAcetam 500 MG/5 ML UDC GTUBE SCH (09:46)
[2020-09-18] MEDS: Aspirin 81 MG TAB.CHEW GTUBE SCH (09:46)
[2020-09-18] MEDS: metroNIDAZOLE 500 MG TABLET GTUBE SCH (09:47)
[2020-09-18] MEDS: Cyanocobalamin (B-12) 1,000 MCG TABLET GTUBE SCH (09:47)
[2020-09-18] MEDS ORDERED: Potassium Chloride Elixir 20 MEQ/15 ML UDC GTUBE SCH (10:15)
[2020-09-18 12:44] VITALS: BP 128/75
== END 2020-09-18 13:40 | disposition home or self-care (01) | DRG 853 ==
LOC: EMEROOARM 08:01 → 2ANU 08:01 → SUATTDRO 11:24 → 2ANU 12:50
PROVIDERS: ADMIT Internal Medicine; ATTEND Internal Medicine

== ENCOUNTER 2020-10-11 18:18 | Inpatient (IN) ==
[2020-10-11] MEDS ORDERED: Ipratropium/Albuterol Neb 3 ML ONE (18:22)
[2020-10-11] MEDS ORDERED: Ipratropium/Albuterol Neb 3 ML IH ONE (18:23)
[2020-10-11 18:51] LABS: Bacteria,Urine Few per hpf (None-Few); Bilirubin,Urine Negative (Negative); Blood,Urine Negative (Negative); Clarity,Urine Clear (Clear); Color,Urine Yellow (Yellow); Glucose,Urine (UA) Normal (Normal); Ketones,Urine Negative (Negative); Leukocyte Esterase,Urine Moderate (Negative); Mucus,Urine Few per lpf (None-Few); Nitrite,Urine Negative (Negative); Protein,Urine Trace mg/dL (Neg-Trace); Specific Gravity,Urine 1.016 (1.010-1.025); Urobilinogen,Urine Normal (Normal)
[2020-10-11 18:59] LABS: Basophils # 0.1 K/mcL (0.0-0.2); Basophils % 0.8 %; Eosinophils # 0.2 K/mcL (0.0-0.6); Eosinophils % 1.8 %; Hematocrit 42.6 % (37.5-50.1); Immature Granulocytes % 0.3 % (0-4); Lymphocytes % 22.5 %; Mean Corpuscular Hemoglobin 28.3 pg (28.0-33.3); Mean Corpuscular Volume 91.4 fL (83.0-100.0); Mean Platelet Volume 10.3 fL (9.4-12.4); Monocytes # 0.6 K/mcL (0.0-1.3); Monocytes % 7.2 %; Neutrophils # 5.9 K/mcL (1.6-8.9); Platelet Count 342 K/mcL (140-400); Red Blood Count 4.66 M/mcL (4.19-5.50); Red Cell Distribution Width 15.4 % (11.5-14.5); Segmented Neutrophils % 67.4 %
[2020-10-11 19:01] LABS: Hemoglobin 13.2 g/dL (12.9-16.9); White Blood Count 8.8 K/mcL (4.3-11.1)
[2020-10-11 19:06] LABS: INR 1.5; Prothrombin Time 17.3 Seconds (9.4-12.1)
[2020-10-11 19:09] LABS: VBG HCO3 30 mEq/L (21-27); VBG PCO2 46 mmHg (41-51); VBG PH 7.43 pH Units (7.32-7.42); VBG PO2 115 mmHg (25-50)
[2020-10-11 19:25] LABS: Troponin I < 0.03 ng/mL (< 0.04)
[2020-10-11 19:39] LABS: Adenovirus Not Detected (Not Detect); Bordetella Pertussis Not Detected (Not Detect); Chlamydophila pneumoniae Not Detected (Not Detect); Coronavirus 229E Not Detected (Not Detect); Coronavirus HKU1 Not Detected (Not Detect); Coronavirus NL63 Not Detected (Not Detect); Coronavirus OC43 Not Detected (Not Detect); Human Metapneumovirus Not Detected (Not Detect); Human Rhinovirus/Enterovirus Not Detected (Not Detect); Influenza A Subtype 2009 H1 Not Detected (Not Detect); Influenza B Not Detected (Not Detect); Mycoplasma pneumoniae Not Detected (Not Detect); Parainfluenza Virus 1 Not Detected (Not Detect); Parainfluenza Virus 2 Not Detected (Not Detect); Parainfluenza Virus 3 Not Detected (Not Detect); Parainfluenza Virus 4 Not Detected (Not Detect); Respiratory Syncytial Virus Not Detected (Not Detect); SARS-CoV-2 Not Detected (Not Detect)
[2020-10-11 19:40] LABS: Alanine Aminotransferase 30 Units/L (7-52); Albumin 3.7 g/dL (3.5-5.7); Albumin/Globulin Ratio 0.9 (1.1-2.2); Alkaline Phosphatase 82 Units/L (34-104); Aspartate Amino Transferase 28 Units/L (13-39); BUN/Creatinine Ratio 34 (6-26); Bilirubin,Direct 0.1 mg/dL (0.0-0.2); Bilirubin,Indirect 0.2 mg/dL (0.0-1.0); Bilirubin,Total 0.3 mg/dL (0.3-1.0); Blood Urea Nitrogen 21 mg/dL (8-23); Calcium 9.1 mg/dL (8.6-10.3); Carbon Dioxide 25 mEq/L (23-29); Chloride 98 mEq/L (98-107); Globulin 3.9 g/dL (2.4-3.5); Glucose 217 mg/dL (70-105); Magnesium 1.8 mg/dL (1.6-2.6); Osmolality,Calculated 286 (280-300); Potassium 5.2 mEq/L (3.5-5.1); Sodium 133 mEq/L (136-145); Total Protein 7.6 g/dL (6.4-8.9); eGFR For African Americans > 60 (> 60); eGFR For Non-African Americans > 60 (> 60)
[2020-10-11] MEDS ORDERED: Isovue-370 500 ML BOTTLE IVP ONE (21:10)
[2020-10-11] MEDS ORDERED: Piperacillin/Tazobactam 3.375 GM in 0.9 % Sodium Chloride Mini Bag 100 ML IVPB ONE (22:09)
[2020-10-12] MEDS ORDERED: Acetaminophen 325 MG TABLET PO PRN (00:37)
[2020-10-12] MEDS ORDERED: Naloxone 0.4 MG/ML INJ IVP PRN (00:37)
[2020-10-12] MEDS ORDERED: *HR* HYDROcodone/Acet 5/325 mg TABLET PO PRN (00:37)
[2020-10-12] MEDS ORDERED: Ondansetron 4 MG/2 ML VIAL IVP PRN (00:37)
[2020-10-12] MEDS ORDERED: Melatonin 3 MG TABLET PO PRN (00:37)
[2020-10-12] MEDS ORDERED: D5% in Water 1,000 ML IVC PRN (00:40)
[2020-10-12] MEDS ORDERED: *HR* Dextrose 50 % in Water (Vial) 50 ML VIAL IVP PRN (00:40)
[2020-10-12] MEDS ORDERED: Dextrose Gel 15 GM/37.5 ML TUBE PO PRN ×2 (00:40)
[2020-10-12] MEDS ORDERED: Ipratropium/Albuterol Neb 3 ML IH PRN (00:43)
[2020-10-12] MEDS ORDERED: Insulin Human Regular 10 UNIT in 0.9 % Sodium Chloride 10 ML IV ONE (00:45)
[2020-10-12] MEDS ORDERED: *HR* Dextrose 50 % in Water (Vial) 50 ML VIAL IVP ONE (01:15)
[2020-10-12 03:26] LABS: Basophils # 0.1 K/mcL (0.0-0.2); Basophils % 0.6 %; Eosinophils # 0.1 K/mcL (0.0-0.6); Eosinophils % 1.1 %; Hematocrit 46.2 % (37.5-50.1); Hemoglobin 14.2 g/dL (12.9-16.9); Immature Granulocytes % 0.4 % (0-4); Lymphocytes # 1.8 K/mcL (0.6-4.6); Lymphocytes % 16.1 %; Mean Corpuscular HGB Conc 30.7 g/dL (31.6-35.5); Mean Corpuscular Hemoglobin 28.4 pg (28.0-33.3); Mean Corpuscular Volume 92.4 fL (83.0-100.0); Mean Platelet Volume 10.5 fL (9.4-12.4); Monocytes # 0.8 K/mcL (0.0-1.3); Monocytes % 6.9 %; Neutrophils # 8.5 K/mcL (1.6-8.9); Platelet Count 329 K/mcL (140-400); Red Cell Distribution Width 15.4 % (11.5-14.5); Segmented Neutrophils % 74.9 %; White Blood Count 11.4 K/mcL (4.3-11.1)
[2020-10-12 03:31] LABS: INR 1.3; Prothrombin Time 15.4 Seconds (9.4-12.1)
[2020-10-12 03:47] LABS: BUN/Creatinine Ratio 28 (6-26); Blood Urea Nitrogen 21 mg/dL (8-23); Calcium 9.5 mg/dL (8.6-10.3); Carbon Dioxide 27 mEq/L (23-29); Chloride 97 mEq/L (98-107); Chol/HDL Ratio 2.9 (0-4.9); Cholesterol 100 mg/dL (< 200); Glucose 180 mg/dL (70-105); HDL Cholesterol 35 mg/dL (40-59); LDL Cholesterol,Calculated 52 mg/dL (< 100); Osmolality,Calculated 288 (280-300); Phosphorous 4.2 mg/dL (2.7-4.5); Potassium 4.5 mEq/L (3.5-5.1); Sodium 135 mEq/L (136-145); Triglycerides 65 mg/dL (< 150); eGFR For African Americans > 60 (> 60); eGFR For Non-African Americans > 60 (> 60)
[2020-10-12] MEDS: Ipratropium/Albuterol Neb 3 ML IH SCH ×6 (04:12→23:56)
[2020-10-12] MEDS: Insulin LISPRO 300 UNITS/3 ML VIAL SUBQ SCH ×3 (05:14→18:16)
[2020-10-12] MEDS ORDERED: Ringers Solution, Lactated 1,000 ML IVC SCH (06:30)
[2020-10-12] MEDS: Piperacillin/Tazobactam 3.375 GM in 0.9 % Sodium Chloride Mini Bag 100 ML IVPB SCH ×2 (08:45→15:24)
[2020-10-12] MEDS: Apixaban 5 MG TABLET PO SCH ×2 (08:45→23:02)
[2020-10-12] MEDS ORDERED: Insulin DETEMIR 100 UNIT/ML X5UNITS SUBQ SCH (21:00)
[2020-10-12] MEDS: levETIRAcetam 500 MG/5 ML UDC GTUBE SCH (23:02)
[2020-10-13] MEDS: Insulin LISPRO 300 UNITS/3 ML VIAL SUBQ SCH ×5 (00:11→23:59)
[2020-10-13] MEDS: Piperacillin/Tazobactam 3.375 GM in 0.9 % Sodium Chloride Mini Bag 100 ML IVPB SCH ×3 (01:11→15:21)
[2020-10-13 01:39] LABS: Basophils # 0.1 K/mcL (0.0-0.2); Basophils % 0.7 %; Eosinophils # 0.1 K/mcL (0.0-0.6); Eosinophils % 1.6 %; Hematocrit 36.5 % (37.5-50.1); Immature Granulocytes % 0.4 % (0-4); Lymphocytes # 1.5 K/mcL (0.6-4.6); Lymphocytes % 21.3 %; Mean Corpuscular HGB Conc 30.7 g/dL (31.6-35.5); Mean Corpuscular Hemoglobin 28.6 pg (28.0-33.3); Mean Corpuscular Volume 93.1 fL (83.0-100.0); Mean Platelet Volume 10.8 fL (9.4-12.4); Monocytes # 0.6 K/mcL (0.0-1.3); Monocytes % 8.6 %; Neutrophils # 4.6 K/mcL (1.6-8.9); Platelet Count 267 K/mcL (140-400); Red Blood Count 3.92 M/mcL (4.19-5.50); Red Cell Distribution Width 15.4 % (11.5-14.5); Segmented Neutrophils % 67.4 %; White Blood Count 6.9 K/mcL (4.3-11.1)
[2020-10-13 01:41] LABS: Hemoglobin 11.2 g/dL (12.9-16.9)
[2020-10-13 01:57] LABS: BUN/Creatinine Ratio 34 (6-26); Blood Urea Nitrogen 22 mg/dL (8-23); Calcium 8.5 mg/dL (8.6-10.3); Carbon Dioxide 28 mEq/L (23-29); Chloride 101 mEq/L (98-107); Glucose 226 mg/dL (70-105); Magnesium 1.9 mg/dL (1.6-2.6); Osmolality,Calculated 292 (280-300); Phosphorous 4.8 mg/dL (2.7-4.5); Sodium 136 mEq/L (136-145); eGFR For African Americans > 60 (> 60); eGFR For Non-African Americans > 60 (> 60)
[2020-10-13] MEDS: Ipratropium/Albuterol Neb 3 ML IH SCH ×5 (03:52→19:45)
[2020-10-13] MEDS: Potassium Chloride Elixir 20 MEQ/15 ML UDC GTUBE SCH (09:02)
[2020-10-13] MEDS: levETIRAcetam 500 MG/5 ML UDC GTUBE SCH ×2 (09:02→20:10)
[2020-10-13] MEDS: Insulin DETEMIR 100 UNIT/ML X5UNITS SUBQ SCH ×2 (09:04→20:10)
[2020-10-13] MEDS: Apixaban 5 MG TABLET PO SCH ×2 (09:04→20:10)
[2020-10-14] MEDS: Ipratropium/Albuterol Neb 3 ML IH SCH ×7 (00:02→23:12)
[2020-10-14] MEDS: Piperacillin/Tazobactam 3.375 GM in 0.9 % Sodium Chloride Mini Bag 100 ML IVPB SCH ×2 (00:22→09:53)
[2020-10-14 01:00] LABS: Hematocrit 34.5 % (37.5-50.1); Hemoglobin 10.7 g/dL (12.9-16.9)
[2020-10-14 01:20] LABS: BUN/Creatinine Ratio 38 (6-26); Blood Urea Nitrogen 20 mg/dL (8-23); Calcium 8.5 mg/dL (8.6-10.3); Carbon Dioxide 27 mEq/L (23-29); Chloride 103 mEq/L (98-107); Glucose 118 mg/dL (70-105); Magnesium 1.8 mg/dL (1.6-2.6); Osmolality,Calculated 288 (280-300); Phosphorous 3.9 mg/dL (2.7-4.5); Sodium 137 mEq/L (136-145); eGFR For African Americans > 60 (> 60); eGFR For Non-African Americans > 60 (> 60)
[2020-10-14] MEDS: Insulin LISPRO 300 UNITS/3 ML VIAL SUBQ SCH ×3 (06:04→19:38)
[2020-10-14] MEDS: Apixaban 5 MG TABLET PO SCH (09:54)
[2020-10-14] MEDS: levETIRAcetam 500 MG/5 ML UDC GTUBE SCH ×2 (09:54→22:09)
[2020-10-14] MEDS: Potassium Chloride Elixir 20 MEQ/15 ML UDC GTUBE SCH (09:56)
[2020-10-14] MEDS: Insulin DETEMIR 100 UNIT/ML X5UNITS SUBQ SCH ×2 (09:57→22:33)
[2020-10-14] MEDS ORDERED: *HR* HYDROcodone/Acet 5/325 mg TABLET GTUBE PRN (16:24)
[2020-10-14] MEDS: cefTRIAXone 2,000 MG in Water for inj. (sterile) 20 ML IVP SCH (17:00)
[2020-10-14] MEDS: metroNIDAZOLE 500 MG TABLET GTUBE SCH ×2 (17:00→22:10)
[2020-10-14] MEDS: Apixaban 5 MG TABLET GTUBE SCH (22:10)
[2020-10-15] MEDS: Insulin LISPRO 300 UNITS/3 ML VIAL SUBQ SCH ×3 (01:05→12:11)
[2020-10-15] MEDS: Ipratropium/Albuterol Neb 3 ML IH SCH ×4 (03:47→16:47)
[2020-10-15 05:08] VITALS: BP 107/54; PULSE 82; TEMP 97.1
[2020-10-15] MEDS: metroNIDAZOLE 500 MG TABLET GTUBE SCH ×2 (09:42→15:05)
[2020-10-15] MEDS: Apixaban 5 MG TABLET GTUBE SCH (09:42)
[2020-10-15] MEDS: Potassium Chloride Elixir 20 MEQ/15 ML UDC GTUBE SCH (09:44)
[2020-10-15] MEDS: levETIRAcetam 500 MG/5 ML UDC GTUBE SCH (09:44)
[2020-10-15] MEDS: Insulin DETEMIR 100 UNIT/ML X5UNITS SUBQ SCH (09:58)
[2020-10-15] MEDS: cefTRIAXone 2,000 MG in Water for inj. (sterile) 20 ML IVP SCH (15:05)
[2020-10-15 17:32] VITALS: O2SAT 97
== END 2020-10-15 18:15 | disposition home health service (06) | DRG 177 ==
LOC: EMEROOARM 18:18 → 2NENU 18:18 → SUATTDRO 22:47 → 2NENU 23:20
PROVIDERS: ADMIT Internal Medicine; ATTEND Internal Medicine

== ENCOUNTER 2020-11-07 16:10 | Inpatient (IN) ==
[2020-11-07] MEDS ORDERED: Isovue-370 500 ML BOTTLE IVP ONE (16:34)
[2020-11-07 17:03] LABS: Basophils # 0.1 K/mcL (0.0-0.2); Basophils % 0.7 %; Eosinophils # 0.1 K/mcL (0.0-0.6); Eosinophils % 0.8 %; Hematocrit 40.8 % (37.5-50.1); Hemoglobin 13.1 g/dL (12.9-16.9); Immature Granulocytes % 0.6 % (0-4); Lymphocytes # 1.4 K/mcL (0.6-4.6); Lymphocytes % 13.3 %; Mean Corpuscular HGB Conc 32.1 g/dL (31.6-35.5); Mean Corpuscular Hemoglobin 28.9 pg (28.0-33.3); Mean Corpuscular Volume 90.1 fL (83.0-100.0); Mean Platelet Volume 11.6 fL (9.4-12.4); Monocytes # 1.1 K/mcL (0.0-1.3); Neutrophils # 7.6 K/mcL (1.6-8.9); Platelet Count 281 K/mcL (140-400); Red Blood Count 4.53 M/mcL (4.19-5.50); Red Cell Distribution Width 14.2 % (11.5-14.5); Segmented Neutrophils % 73.6 %; White Blood Count 10.3 K/mcL (4.3-11.1)
[2020-11-07 17:21] LABS: Alanine Aminotransferase 70 Units/L (7-52); Albumin 3.6 g/dL (3.5-5.7); Albumin/Globulin Ratio 0.8 (1.1-2.2); Alkaline Phosphatase 88 Units/L (34-104); Aspartate Amino Transferase 51 Units/L (13-39); BUN/Creatinine Ratio 74 (6-26); Bilirubin,Total 0.3 mg/dL (0.3-1.0); Blood Urea Nitrogen 64 mg/dL (8-23); C-Reactive Protein 170 mg/L (Less than 10); Calcium 9.7 mg/dL (8.6-10.3); Carbon Dioxide 30 mEq/L (23-29); Chloride 102 mEq/L (98-107); Globulin 4.4 g/dL (2.4-3.5); Glucose 291 mg/dL (70-105); Osmolality,Calculated 321 (280-300); Potassium 3.7 mEq/L (3.5-5.1); Sodium 141 mEq/L (136-145); eGFR For African Americans > 60 (> 60); eGFR For Non-African Americans > 60 (> 60)
[2020-11-07] MEDS ORDERED: Piperacillin/Tazobactam 3.375 GM in Water for inj. (sterile) 20 ML IVP ONE (19:19)
[2020-11-07] MEDS ORDERED: Melatonin 3 MG TABLET PO PRN (20:25)
[2020-11-07] MEDS ORDERED: Naloxone 0.4 MG/ML INJ IVP PRN (20:25)
[2020-11-07] MEDS ORDERED: Ondansetron 4 MG/2 ML VIAL IVP PRN (20:25)
[2020-11-07] MEDS ORDERED: Dextrose Gel 15 GM/37.5 ML TUBE PO PRN ×2 (20:31)
[2020-11-07] MEDS ORDERED: *HR* Dextrose 50 % in Water (Vial) 50 ML VIAL IVP PRN (20:31)
[2020-11-07] MEDS ORDERED: D5% in Water 1,000 ML IVC PRN (20:31)
[2020-11-07] MEDS: Ringers Solution, Lactated 1,000 ML IVC SCH (22:54)
[2020-11-08] MEDS: Insulin LISPRO 300 UNITS/3 ML VIAL SUBQ SCH ×4 (00:35→18:02)
[2020-11-08] MEDS: Cefepime HCl 2,000 MG in Water for inj. (sterile) 20 ML IVP SCH ×3 (00:41→15:49)
[2020-11-08 05:26] LABS: Basophils # 0.1 K/mcL (0.0-0.2); Basophils % 0.6 %; Eosinophils # 0.1 K/mcL (0.0-0.6); Hematocrit 40.9 % (37.5-50.1); Hemoglobin 12.7 g/dL (12.9-16.9); Immature Granulocytes % 0.5 % (0-4); Lymphocytes # 1.6 K/mcL (0.6-4.6); Lymphocytes % 18.4 %; Mean Corpuscular HGB Conc 31.1 g/dL (31.6-35.5); Mean Corpuscular Hemoglobin 28.4 pg (28.0-33.3); Mean Corpuscular Volume 91.5 fL (83.0-100.0); Mean Platelet Volume 12.2 fL (9.4-12.4); Monocytes % 11.7 %; Neutrophils # 5.8 K/mcL (1.6-8.9); Platelet Count 258 K/mcL (140-400); Red Blood Count 4.47 M/mcL (4.19-5.50); Segmented Neutrophils % 67.8 %; White Blood Count 8.6 K/mcL (4.3-11.1)
[2020-11-08 05:43] LABS: BUN/Creatinine Ratio 74 (6-26); Blood Urea Nitrogen 59 mg/dL (8-23); Calcium 9.4 mg/dL (8.6-10.3); Carbon Dioxide 30 mEq/L (23-29); Chloride 105 mEq/L (98-107); Glucose 179 mg/dL (70-105); Osmolality,Calculated 321 (280-300); Potassium 3.6 mEq/L (3.5-5.1); Sodium 145 mEq/L (136-145); eGFR For African Americans > 60 (> 60); eGFR For Non-African Americans > 60 (> 60)
[2020-11-08] MEDS ORDERED: Fluconazole 400 MG/200 ML 400 MG/200 ML BAG IVPB SCH (09:00)
[2020-11-08] MEDS: Ringers Solution, Lactated 1,000 ML IVC SCH (10:28)
[2020-11-08] MEDS ORDERED: Loratadine 10 MG TABLET PO PRN (10:40)
[2020-11-08] MEDS: levETIRAcetam 500 MG/5 ML UDC GTUBE SCH ×2 (12:01→21:25)
[2020-11-08] MEDS: metroNIDAZOLE 500 MG TABLET GTUBE SCH ×2 (15:49→21:25)
[2020-11-08] MEDS: Apixaban 5 MG TABLET GTUBE SCH (21:25)
[2020-11-08] MEDS: Insulin DETEMIR 100 UNIT/ML X5UNITS SUBQ SCH (22:06)
[2020-11-09] MEDS: Insulin LISPRO 300 UNITS/3 ML VIAL SUBQ SCH ×4 (00:27→17:27)
[2020-11-09] MEDS: Ringers Solution, Lactated 1,000 ML IVC SCH ×2 (00:30→18:14)
[2020-11-09] MEDS: Cefepime HCl 2,000 MG in Water for inj. (sterile) 20 ML IVP SCH ×4 (00:33→22:58)
[2020-11-09] MEDS: metroNIDAZOLE 500 MG TABLET GTUBE SCH ×3 (09:55→20:45)
[2020-11-09] MEDS: levETIRAcetam 500 MG/5 ML UDC GTUBE SCH ×2 (09:56→20:45)
[2020-11-09] MEDS: Apixaban 5 MG TABLET GTUBE SCH ×2 (09:56→20:45)
[2020-11-09] MEDS: Insulin DETEMIR 100 UNIT/ML X5UNITS SUBQ SCH (21:12)
[2020-11-09 22:35] LABS: Acinetobacter baumannii by PCR Not Detected (Not Detect); Candida albicans by PCR Not Detected (Not Detect); Candida glabrata by PCR Not Detected (Not Detect); Candida krusei by PCR Not Detected (Not Detect); Candida parapsilosis by PCR Not Detected (Not Detect); Candida tropicalis by PCR Not Detected (Not Detect); Enterobacter cloacae Cmplx PCR Not Detected (Not Detect); Enterobacteriaceae by PCR Not Detected (Not Detect); Enterococcus by PCR Not Detected (Not Detect); Escherichia coli by PCR Not Detected (Not Detect); Klebsiella oxytoca by PCR Not Detected (Not Detect); Klebsiella pneumoniae by PCR Not Detected (Not Detect); Proteus by PCR Not Detected (Not Detect); Pseudomonas aeruginosa by PCR Not Detected (Not Detect); Serratia marcescens by PCR Not Detected (Not Detect); Staphylococcus aureus by PCR Not Detected (Not Detect); Staphylococcus by PCR DETECTED (Not Detect); Streptococcus agalactiae(B)PCR Not Detected (Not Detect); Streptococcus by PCR Not Detected (Not Detect); Streptococcus pneumoniae PCR Not Detected (Not Detect); Streptococcus pyogenes (A) PCR Not Detected (Not Detect); mecA Methicillin-Resist Gene DETECTED (Not Detect)
[2020-11-10] MEDS: Insulin LISPRO 300 UNITS/3 ML VIAL SUBQ SCH ×4 (00:01→18:24)
[2020-11-10 02:33] LABS: Basophils % 0.6 %; Eosinophils # 0.2 K/mcL (0.0-0.6); Eosinophils % 2.1 %; Hematocrit 29.9 % (37.5-50.1); Immature Granulocytes % 0.7 % (0-4); Lymphocytes # 1.5 K/mcL (0.6-4.6); Lymphocytes % 20.7 %; Mean Corpuscular HGB Conc 32.4 g/dL (31.6-35.5); Mean Corpuscular Hemoglobin 29.5 pg (28.0-33.3); Mean Corpuscular Volume 90.9 fL (83.0-100.0); Mean Platelet Volume 11.6 fL (9.4-12.4); Monocytes # 0.6 K/mcL (0.0-1.3); Monocytes % 7.8 %; Neutrophils # 4.8 K/mcL (1.6-8.9); Platelet Count 247 K/mcL (140-400); Red Blood Count 3.29 M/mcL (4.19-5.50); Red Cell Distribution Width 13.7 % (11.5-14.5); Segmented Neutrophils % 68.1 %; White Blood Count 7.1 K/mcL (4.3-11.1)
[2020-11-10 02:45] LABS: Hemoglobin 9.7 g/dL (12.9-16.9)
[2020-11-10 02:55] LABS: BUN/Creatinine Ratio 57 (6-26); Blood Urea Nitrogen 33 mg/dL (8-23); Calcium 8.5 mg/dL (8.6-10.3); Carbon Dioxide 27 mEq/L (23-29); Chloride 112 mEq/L (98-107); Glucose 274 mg/dL (70-105); Osmolality,Calculated 321 (280-300); Sodium 147 mEq/L (136-145); eGFR For African Americans > 60 (> 60); eGFR For Non-African Americans > 60 (> 60)
[2020-11-10 03:04] LABS: Platelet Estimate Normal (Normal)
[2020-11-10] MEDS ORDERED: Potassium Chloride 40 MEQ, Lidocaine 1% 2 ML in 0.9 % Sodium Chloride 500 ML IVPB ONE (07:18)
[2020-11-10] MEDS: Apixaban 5 MG TABLET GTUBE SCH ×2 (10:34→21:45)
[2020-11-10] MEDS: levETIRAcetam 500 MG/5 ML UDC GTUBE SCH ×2 (10:34→21:45)
[2020-11-10] MEDS: metroNIDAZOLE 500 MG TABLET GTUBE SCH ×3 (10:34→21:46)
[2020-11-10] MEDS: Cefepime HCl 2,000 MG in Water for inj. (sterile) 20 ML IVP SCH ×2 (10:35→15:10)
[2020-11-10] MEDS: Insulin DETEMIR 100 UNIT/ML X5UNITS SUBQ SCH (21:46)
[2020-11-11] MEDS: Cefepime HCl 2,000 MG in Water for inj. (sterile) 20 ML IVP SCH ×4 (00:15→23:17)
[2020-11-11] MEDS: Insulin LISPRO 300 UNITS/3 ML VIAL SUBQ SCH ×5 (00:16→23:18)
[2020-11-11 02:27] LABS: Basophils # 0.1 K/mcL (0.0-0.2); Basophils % 0.9 %; Eosinophils # 0.2 K/mcL (0.0-0.6); Eosinophils % 2.2 %; Hematocrit 30.7 % (37.5-50.1); Hemoglobin 9.6 g/dL (12.9-16.9); Immature Granulocytes % 0.7 % (0-4); Lymphocytes # 1.6 K/mcL (0.6-4.6); Lymphocytes % 19.4 %; Mean Corpuscular HGB Conc 31.3 g/dL (31.6-35.5); Mean Corpuscular Hemoglobin 28.2 pg (28.0-33.3); Mean Corpuscular Volume 90.3 fL (83.0-100.0); Mean Platelet Volume 11.6 fL (9.4-12.4); Monocytes # 0.7 K/mcL (0.0-1.3); Monocytes % 8.5 %; Neutrophils # 5.6 K/mcL (1.6-8.9); Platelet Count 282 K/mcL (140-400); Red Cell Distribution Width 13.7 % (11.5-14.5); Segmented Neutrophils % 68.3 %; White Blood Count 8.2 K/mcL (4.3-11.1)
[2020-11-11 02:36] LABS: BUN/Creatinine Ratio 52 (6-26); Blood Urea Nitrogen 24 mg/dL (8-23); Calcium 8.2 mg/dL (8.6-10.3); Carbon Dioxide 27 mEq/L (23-29); Chloride 114 mEq/L (98-107); Glucose 202 mg/dL (70-105); Osmolality,Calculated 314 (280-300); Potassium 3.2 mEq/L (3.5-5.1); Sodium 147 mEq/L (136-145); eGFR For African Americans > 60 (> 60); eGFR For Non-African Americans > 60 (> 60)
[2020-11-11] MEDS ORDERED: Potassium Chloride 40 MEQ, Lidocaine 1% 2 ML in 0.9 % Sodium Chloride 500 ML IVPB ONE (07:24)
[2020-11-11] MEDS: Apixaban 5 MG TABLET GTUBE SCH ×2 (07:45→21:17)
[2020-11-11] MEDS: levETIRAcetam 500 MG/5 ML UDC GTUBE SCH ×2 (07:45→21:17)
[2020-11-11] MEDS: metroNIDAZOLE 500 MG TABLET GTUBE SCH ×3 (07:45→21:17)
[2020-11-11] MEDS ORDERED: Loratadine 10 MG TABLET GTUBE PRN (09:00)
[2020-11-11] MEDS ORDERED: Perflutren Lipid Microsphere 1.3 ML in 0.9 % Sodium Chloride 8.7 ML IVP PRN (09:37)
[2020-11-11] MEDS: Insulin DETEMIR 100 UNIT/ML X5UNITS SUBQ SCH (21:16)
[2020-11-11] MEDS ORDERED: Melatonin 3 MG TABLET GTUBE PRN (22:00)
[2020-11-12 02:22] LABS: Basophils # 0.1 K/mcL (0.0-0.2); Basophils % 0.9 %; Eosinophils # 0.2 K/mcL (0.0-0.6); Eosinophils % 1.9 %; Hematocrit 31.6 % (37.5-50.1); Immature Granulocytes % 1.2 % (0-4); Lymphocytes # 1.8 K/mcL (0.6-4.6); Lymphocytes % 19.3 %; Mean Corpuscular HGB Conc 31.6 g/dL (31.6-35.5); Mean Corpuscular Hemoglobin 28.6 pg (28.0-33.3); Mean Corpuscular Volume 90.3 fL (83.0-100.0); Mean Platelet Volume 11.6 fL (9.4-12.4); Monocytes # 0.6 K/mcL (0.0-1.3); Monocytes % 6.9 %; Neutrophils # 6.4 K/mcL (1.6-8.9); Platelet Count 293 K/mcL (140-400); Red Cell Distribution Width 13.6 % (11.5-14.5); Segmented Neutrophils % 69.8 %; White Blood Count 9.2 K/mcL (4.3-11.1)
[2020-11-12 02:41] LABS: BUN/Creatinine Ratio 52 (6-26); Blood Urea Nitrogen 22 mg/dL (8-23); Calcium 8.4 mg/dL (8.6-10.3); Carbon Dioxide 27 mEq/L (23-29); Chloride 113 mEq/L (98-107); Glucose 173 mg/dL (70-105); Osmolality,Calculated 307 (280-300); Potassium 2.9 mEq/L (3.5-5.1); Sodium 145 mEq/L (136-145); eGFR For African Americans > 60 (> 60); eGFR For Non-African Americans > 60 (> 60)
[2020-11-12] MEDS: Insulin LISPRO 300 UNITS/3 ML VIAL SUBQ SCH ×3 (05:23→17:56)
[2020-11-12] MEDS: Apixaban 5 MG TABLET GTUBE SCH ×2 (07:31→22:06)
[2020-11-12] MEDS: Cefepime HCl 2,000 MG in Water for inj. (sterile) 20 ML IVP SCH ×2 (07:31→15:52)
[2020-11-12] MEDS: metroNIDAZOLE 500 MG TABLET GTUBE SCH ×3 (07:31→22:06)
[2020-11-12] MEDS: levETIRAcetam 500 MG/5 ML UDC GTUBE SCH ×2 (07:32→22:05)
[2020-11-12] MEDS ORDERED: Magnesium Sulfate 1 GM/102 ML PIGGYBACK IVPB ONE (07:37)
[2020-11-12] MEDS ORDERED: Potassium Chloride 40 MEQ, Lidocaine 1% 2 ML in 0.9 % Sodium Chloride 500 ML IVPB ONE (07:37)
[2020-11-12] MEDS: Insulin DETEMIR 100 UNIT/ML X5UNITS SUBQ SCH (22:05)
[2020-11-13] MEDS: Insulin LISPRO 300 UNITS/3 ML VIAL SUBQ SCH ×4 (00:32→18:21)
[2020-11-13] MEDS: Cefepime HCl 2,000 MG in Water for inj. (sterile) 20 ML IVP SCH ×3 (00:33→16:02)
[2020-11-13 01:49] LABS: Basophils # 0.1 K/mcL (0.0-0.2); Basophils % 0.7 %; Eosinophils # 0.2 K/mcL (0.0-0.6); Eosinophils % 1.7 %; Hematocrit 30.2 % (37.5-50.1); Hemoglobin 9.9 g/dL (12.9-16.9); Immature Granulocytes % 1.1 % (0-4); Lymphocytes % 17.8 %; Mean Corpuscular HGB Conc 32.8 g/dL (31.6-35.5); Mean Corpuscular Hemoglobin 29.5 pg (28.0-33.3); Mean Corpuscular Volume 89.9 fL (83.0-100.0); Mean Platelet Volume 11.6 fL (9.4-12.4); Monocytes # 0.6 K/mcL (0.0-1.3); Monocytes % 5.7 %; Neutrophils # 8.3 K/mcL (1.6-8.9); Platelet Count 307 K/mcL (140-400); Red Blood Count 3.36 M/mcL (4.19-5.50); Red Cell Distribution Width 13.6 % (11.5-14.5); White Blood Count 11.3 K/mcL (4.3-11.1)
[2020-11-13 02:10] LABS: BUN/Creatinine Ratio 38 (6-26); Blood Urea Nitrogen 20 mg/dL (8-23); Calcium 7.9 mg/dL (8.6-10.3); Carbon Dioxide 25 mEq/L (23-29); Chloride 109 mEq/L (98-107); Glucose 253 mg/dL (70-105); Magnesium 1.6 mg/dL (1.6-2.6); Osmolality,Calculated 305 (280-300); Potassium 3.5 mEq/L (3.5-5.1); Sodium 142 mEq/L (136-145); eGFR For African Americans > 60 (> 60); eGFR For Non-African Americans > 60 (> 60)
[2020-11-13] MEDS: metroNIDAZOLE 500 MG TABLET GTUBE SCH ×3 (09:31→20:08)
[2020-11-13] MEDS: Apixaban 5 MG TABLET GTUBE SCH ×2 (09:31→20:08)
[2020-11-13] MEDS: levETIRAcetam 500 MG/5 ML UDC GTUBE SCH ×2 (09:32→20:08)
[2020-11-13] MEDS: Insulin DETEMIR 100 UNIT/ML X5UNITS SUBQ SCH (21:49)
[2020-11-14] MEDS: Cefepime HCl 2,000 MG in Water for inj. (sterile) 20 ML IVP SCH (01:06)
[2020-11-14] MEDS: Insulin LISPRO 300 UNITS/3 ML VIAL SUBQ SCH ×4 (01:07→18:25)
[2020-11-14 02:40] LABS: Basophils # 0.1 K/mcL (0.0-0.2); Basophils % 0.8 %; Eosinophils # 0.2 K/mcL (0.0-0.6); Eosinophils % 1.7 %; Hemoglobin 10.3 g/dL (12.9-16.9); Immature Granulocytes % 1.2 % (0-4); Lymphocytes # 1.9 K/mcL (0.6-4.6); Lymphocytes % 18.4 %; Mean Corpuscular HGB Conc 32.2 g/dL (31.6-35.5); Mean Corpuscular Hemoglobin 29.1 pg (28.0-33.3); Mean Corpuscular Volume 90.4 fL (83.0-100.0); Mean Platelet Volume 11.6 fL (9.4-12.4); Monocytes # 0.8 K/mcL (0.0-1.3); Monocytes % 7.5 %; Neutrophils # 7.2 K/mcL (1.6-8.9); Platelet Count 313 K/mcL (140-400); Red Blood Count 3.54 M/mcL (4.19-5.50); Red Cell Distribution Width 13.6 % (11.5-14.5); Segmented Neutrophils % 70.4 %; White Blood Count 10.2 K/mcL (4.3-11.1)
[2020-11-14 02:59] LABS: BUN/Creatinine Ratio 50 (6-26); Blood Urea Nitrogen 27 mg/dL (8-23); Calcium 7.8 mg/dL (8.6-10.3); Carbon Dioxide 24 mEq/L (23-29); Chloride 112 mEq/L (98-107); Glucose 231 mg/dL (70-105); Osmolality,Calculated 308 (280-300); Potassium 3.2 mEq/L (3.5-5.1); Sodium 143 mEq/L (136-145); eGFR For African Americans > 60 (> 60); eGFR For Non-African Americans > 60 (> 60)
[2020-11-14] MEDS: levETIRAcetam 500 MG/5 ML UDC GTUBE SCH ×2 (07:42→21:24)
[2020-11-14] MEDS: Apixaban 5 MG TABLET GTUBE SCH ×2 (07:43→21:22)
[2020-11-14] MEDS ORDERED: Potassium Chloride Elixir 20 MEQ/15 ML UDC GTUBE ONE ×3 (10:40→21:15)
[2020-11-14] MEDS ORDERED: Ipratropium/Albuterol Neb 3 ML IH PRN (14:52)
[2020-11-14] MEDS: Insulin DETEMIR 100 UNIT/ML X5UNITS SUBQ SCH (21:22)
[2020-11-15] MEDS: Insulin LISPRO 300 UNITS/3 ML VIAL SUBQ SCH ×3 (00:33→12:12)
[2020-11-15 04:06] LABS: BUN/Creatinine Ratio 52 (6-26); Blood Urea Nitrogen 24 mg/dL (8-23); Calcium 8.1 mg/dL (8.6-10.3); Carbon Dioxide 27 mEq/L (23-29); Chloride 113 mEq/L (98-107); Glucose 162 mg/dL (70-105); Osmolality,Calculated 308 (280-300); Potassium 3.5 mEq/L (3.5-5.1); Sodium 145 mEq/L (136-145); eGFR For African Americans > 60 (> 60); eGFR For Non-African Americans > 60 (> 60)
[2020-11-15] MEDS: Apixaban 5 MG TABLET GTUBE SCH (07:21)
[2020-11-15] MEDS: levETIRAcetam 500 MG/5 ML UDC GTUBE SCH (07:21)
[2020-11-15 16:13] VITALS: BP 145/73; PULSE 58; TEMP 98.4; O2SAT 96
== END 2020-11-15 18:08 | disposition home health service (06) | DRG 698 ==
LOC: EMEROOARM 16:10 → 2ANU 16:10 → SUATTDRO 20:40 → 2ANU 21:50 → SUATTDRO 11-08 12:02
PROVIDERS: ADMIT Family Medicine; ATTEND Family Medicine

== ENCOUNTER 2020-11-18 23:28 | Observation (INO) ==
[2020-11-18] MEDS ORDERED: *HR* Dextrose 50 % in Water (Vial) 50 ML VIAL ONE (23:43)
[2020-11-19] MEDS ORDERED: *HR* Dextrose 50 % in Water (Vial) 50 ML VIAL IVP ONE (00:17)
[2020-11-19 01:17] LABS: Basophils # 0.1 K/mcL (0.0-0.2); Basophils % 0.5 %; Eosinophils # 0.1 K/mcL (0.0-0.6); Eosinophils % 0.8 %; Hematocrit 33.7 % (37.5-50.1); Hemoglobin 10.5 g/dL (12.9-16.9); Immature Granulocytes % 0.4 % (0-4); Lymphocytes # 1.6 K/mcL (0.6-4.6); Lymphocytes % 15.1 %; Mean Corpuscular HGB Conc 31.2 g/dL (31.6-35.5); Mean Corpuscular Hemoglobin 28.8 pg (28.0-33.3); Mean Corpuscular Volume 92.3 fL (83.0-100.0); Mean Platelet Volume 11.4 fL (9.4-12.4); Monocytes # 0.7 K/mcL (0.0-1.3); Monocytes % 6.2 %; Neutrophils # 8.2 K/mcL (1.6-8.9); Platelet Count 280 K/mcL (140-400); Red Blood Count 3.65 M/mcL (4.19-5.50); Red Cell Distribution Width 14.6 % (11.5-14.5); White Blood Count 10.6 K/mcL (4.3-11.1)
[2020-11-19 01:29] LABS: BUN/Creatinine Ratio 47 (6-26); Blood Urea Nitrogen 23 mg/dL (8-23); Calcium 8.4 mg/dL (8.6-10.3); Carbon Dioxide 34 mEq/L (23-29); Chloride 102 mEq/L (98-107); Glucose 78 mg/dL (70-105); Osmolality,Calculated 295 (280-300); Sodium 141 mEq/L (136-145); eGFR For African Americans > 60 (> 60); eGFR For Non-African Americans > 60 (> 60)
[2020-11-19] MEDS ORDERED: Calcium Gluconate 1gm/50mL 1 GM/50 ML BAG IVPB ONE (03:55)
[2020-11-19] MEDS ORDERED: D5% in Water 1,000 ML IVC PRN (03:58)
[2020-11-19] MEDS ORDERED: *HR* Dextrose 50 % in Water (Vial) 50 ML VIAL IVP PRN (03:58)
[2020-11-19] MEDS ORDERED: Dextrose Gel 15 GM/37.5 ML TUBE PO PRN ×2 (03:58)
[2020-11-19] MEDS ORDERED: Potassium Chloride 20 MEQ, Lidocaine 1% 2 ML in 0.9 % Sodium Chloride 250 ML IVPB ONE (04:00)
[2020-11-19] MEDS ORDERED: Naloxone 0.4 MG/ML INJ IVP PRN (05:15)
[2020-11-19] MEDS ORDERED: Ondansetron 4 MG/2 ML VIAL IVP PRN (05:15)
[2020-11-19 05:36] LABS: Estimated Average Glucose 166 mg/dl; Hemoglobin A1C 7.4 %
[2020-11-19] MEDS ORDERED: Ipratropium/Albuterol Neb 3 ML IH PRN (06:39)
[2020-11-19 06:57] VITALS: O2SAT 94
[2020-11-19] MEDS ORDERED: Insulin LISPRO 300 UNITS/3 ML VIAL SUBQ SCH ×2 (07:30→21:00)
[2020-11-19] MEDS: Acetaminophen IV 500 MG/50 ML BAG IVPB SCH ×2 (07:33→11:46)
[2020-11-19 08:27] LABS: Bacteria,Urine Few per hpf (None-Few); Bilirubin,Urine Negative (Negative); Blood,Urine Negative (Negative); Budding Yeast,Urine Few per hpf (None Seen); Clarity,Urine Clear (Clear); Color,Urine Light-Yellow (Yellow); Glucose,Urine (UA) Normal (Normal); Ketones,Urine Negative (Negative); Leukocyte Esterase,Urine Small (Negative); Mucus,Urine Few per lpf (None-Few); Nitrite,Urine Negative (Negative); Protein,Urine Trace mg/dL (Neg-Trace); RBC,Urine 0-3 per hpf (0-3); Specific Gravity,Urine 1.019 (1.010-1.025); Urobilinogen,Urine Normal (Normal)
[2020-11-19] MEDS ORDERED: Apixaban 5 MG TABLET PO SCH (09:00)
[2020-11-19] MEDS ORDERED: Loratadine 10 MG TABLET PO SCH (09:00)
[2020-11-19] MEDS ORDERED: Potassium Chloride Elixir 20 MEQ/15 ML UDC GTUBE SCH (09:00)
[2020-11-19] MEDS ORDERED: levETIRAcetam 500 MG/5 ML UDC GTUBE SCH (09:00)
[2020-11-19 10:25] LABS: BUN/Creatinine Ratio 41 (6-26); Blood Urea Nitrogen 19 mg/dL (8-23); Calcium 8.6 mg/dL (8.6-10.3); Carbon Dioxide 30 mEq/L (23-29); Chloride 103 mEq/L (98-107); Glucose 95 mg/dL (70-105); Osmolality,Calculated 290 (280-300); Potassium 3.4 mEq/L (3.5-5.1); Sodium 139 mEq/L (136-145); eGFR For African Americans > 60 (> 60); eGFR For Non-African Americans > 60 (> 60)
[2020-11-19] MEDS ORDERED: Potassium Chloride Elixir 20 MEQ/15 ML UDC GTUBE ONE (10:40)
[2020-11-19 15:30] VITALS: BP 124/62; PULSE 58; TEMP 98.1
== END 2020-11-19 18:23 | disposition home or self-care (01) ==
LOC: EMEROOARM 23:28 → 2ANU 23:28 → SUATTDRO 11-19 02:39 → 2ANU 11-19 03:15
PROVIDERS: ADMIT Student in an Organized Health Care Education/Training Program; ATTEND Student in an Organized Health Care Education/Training Program

== ENCOUNTER 2020-12-10 00:27 | Observation (INO) ==
[2020-12-10 03:40] LABS: Basophils # 0.1 K/mcL (0.0-0.2); Basophils % 0.7 %; Eosinophils # 0.1 K/mcL (0.0-0.6); Eosinophils % 1.4 %; Hematocrit 39.5 % (37.5-50.1); Hemoglobin 12.9 g/dL (12.9-16.9); Immature Granulocytes % 0.5 % (0-4); Lymphocytes # 2.3 K/mcL (0.6-4.6); Lymphocytes % 24.3 %; Mean Corpuscular HGB Conc 32.7 g/dL (31.6-35.5); Mean Corpuscular Volume 88.8 fL (83.0-100.0); Mean Platelet Volume 10.6 fL (9.4-12.4); Monocytes # 0.6 K/mcL (0.0-1.3); Monocytes % 6.6 %; Neutrophils # 6.2 K/mcL (1.6-8.9); Platelet Count 310 K/mcL (140-400); Red Blood Count 4.45 M/mcL (4.19-5.50); Red Cell Distribution Width 13.6 % (11.5-14.5); Segmented Neutrophils % 66.5 %; White Blood Count 9.4 K/mcL (4.3-11.1)
[2020-12-10 03:46] LABS: BUN/Creatinine Ratio 61 (6-26); Blood Urea Nitrogen 44 mg/dL (8-23); Calcium 9.5 mg/dL (8.6-10.3); Carbon Dioxide 29 mEq/L (23-29); Chloride 103 mEq/L (98-107); Glucose 131 mg/dL (70-105); Osmolality,Calculated 303 (280-300); Potassium 3.7 mEq/L (3.5-5.1); Sodium 140 mEq/L (136-145); eGFR For African Americans > 60 (> 60); eGFR For Non-African Americans > 60 (> 60)
[2020-12-10 03:50] LABS: Bilirubin,Urine Negative (Negative); Blood,Urine Large (Negative); Clarity,Urine Cloudy (Clear); Color,Urine Red (Yellow); Glucose,Urine (UA) Normal (Normal); Ketones,Urine Negative (Negative); Specific Gravity,Urine 1.027 (1.010-1.025)
[2020-12-10 03:51] LABS: Leukocyte Esterase,Urine Small (Negative); Nitrite,Urine Negative (Negative); Protein,Urine >=300 mg/dL (Neg-Trace); Urobilinogen,Urine Normal (Normal)
[2020-12-10 04:14] LABS: INR 1.4; Prothrombin Time 15.1 Seconds (9.4-12.1)
[2020-12-10 04:16] LABS: Activated Partial Thrombo Time 35.6 Seconds (26.0-36.0)
[2020-12-10] MEDS ORDERED: 0.9 % Sodium Chloride 500 ML IV ONE (05:33)
[2020-12-10] MEDS ORDERED: Isovue-370 500 ML BOTTLE IVP ONE (08:55)
[2020-12-10] MEDS ORDERED: Ipratropium/Albuterol Neb 3 ML IH ONE (09:03)
[2020-12-10] MEDS ORDERED: Gadolinium Contrast Agent (WT Based) IV PRN (11:22)
[2020-12-10] MEDS ORDERED: GADOBUTROL 30 MMOL/30 ML VIAL IVP ONE (11:53)
[2020-12-10] MEDS ORDERED: Naloxone 0.4 MG/ML INJ IVP PRN (16:02)
[2020-12-10] MEDS ORDERED: Ondansetron 4 MG/2 ML VIAL IVP PRN (16:02)
[2020-12-10] MEDS ORDERED: Dextrose Gel 15 GM/37.5 ML TUBE PO PRN ×2 (16:06)
[2020-12-10] MEDS ORDERED: *HR* Dextrose 50 % in Water (Syg) 50 ML SYRINGE IVP PRN (16:06)
[2020-12-10] MEDS ORDERED: D5% in Water 1,000 ML IVC PRN (16:06)
[2020-12-10] MEDS: Insulin LISPRO 300 UNITS/3 ML VIAL SUBQ SCH (16:43)
[2020-12-10] MEDS ORDERED: Ipratropium/Albuterol Neb 3 ML IH PRN (17:40)
[2020-12-10] MEDS ORDERED: Loratadine 10 MG TABLET GTUBE PRN (17:55)
[2020-12-10] MEDS: Apixaban 5 MG TABLET GTUBE SCH (22:53)
[2020-12-10] MEDS: levETIRAcetam 500 MG/5 ML UDC GTUBE SCH (22:53)
[2020-12-11 06:59] LABS: BUN/Creatinine Ratio 54 (6-26); Blood Urea Nitrogen 31 mg/dL (8-23); Calcium 9.1 mg/dL (8.6-10.3); Carbon Dioxide 28 mEq/L (23-29); Chloride 106 mEq/L (98-107); Glucose 275 mg/dL (70-105); Osmolality,Calculated 308 (280-300); Potassium 3.7 mEq/L (3.5-5.1); Sodium 141 mEq/L (136-145); eGFR For African Americans > 60 (> 60); eGFR For Non-African Americans > 60 (> 60)
[2020-12-11 07:45] LABS: Basophils # 0.1 K/mcL (0.0-0.2); Basophils % 0.9 %; Eosinophils # 0.1 K/mcL (0.0-0.6); Eosinophils % 1.3 %; Hematocrit 37.3 % (37.5-50.1); Hemoglobin 11.5 g/dL (12.9-16.9); Immature Granulocytes % 0.6 % (0-4); Lymphocytes # 1.9 K/mcL (0.6-4.6); Lymphocytes % 18.4 %; Mean Corpuscular HGB Conc 30.8 g/dL (31.6-35.5); Mean Platelet Volume 10.9 fL (9.4-12.4); Monocytes # 0.7 K/mcL (0.0-1.3); Neutrophils # 7.5 K/mcL (1.6-8.9); Platelet Count 291 K/mcL (140-400); Red Cell Distribution Width 13.6 % (11.5-14.5); Segmented Neutrophils % 71.8 %; White Blood Count 10.4 K/mcL (4.3-11.1)
[2020-12-11] MEDS ORDERED: Insulin DETEMIR 100 UNIT/ML X5UNITS SUBQ ONE (08:59)
[2020-12-11] MEDS: Insulin LISPRO 300 UNITS/3 ML VIAL SUBQ SCH ×4 (10:29→20:38)
[2020-12-11] MEDS: levETIRAcetam 500 MG/5 ML UDC GTUBE SCH ×2 (10:43→22:29)
[2020-12-11] MEDS: Apixaban 5 MG TABLET GTUBE SCH ×2 (10:43→21:01)
[2020-12-11] MEDS: Potassium Chloride Elixir 20 MEQ/15 ML UDC GTUBE SCH (10:43)
[2020-12-11] MEDS ORDERED: cefTRIAXone 1,000 MG in Water for inj. (sterile) 10 ML IVP SCH (15:00)
[2020-12-11] MEDS: Insulin DETEMIR 100 UNIT/ML X5UNITS SUBQ SCH (21:01)
[2020-12-12 03:25] LABS: Bacteria,Urine Few per hpf (None-Few); Bilirubin,Urine Negative (Negative); Blood,Urine Moderate (Negative); Clarity,Urine Turbid (Clear); Color,Urine Yellow (Yellow); Glucose,Urine (UA) Normal (Normal); Ketones,Urine Negative (Negative); Leukocyte Esterase,Urine Large (Negative); Mucus,Urine Few per lpf (None-Few); Nitrite,Urine Positive (Negative); Protein,Urine 50 mg/dL (Neg-Trace); RBC,Urine 30-50 per hpf (0-3); Specific Gravity,Urine 1.025 (1.010-1.025); Urobilinogen,Urine Normal (Normal); WBC,Urine TNTC per hpf (0-3)
[2020-12-12 05:40] LABS: Basophils # 0.1 K/mcL (0.0-0.2); Basophils % 0.5 %; Eosinophils # 0.1 K/mcL (0.0-0.6); Eosinophils % 1.2 %; Hematocrit 36.8 % (37.5-50.1); Hemoglobin 11.1 g/dL (12.9-16.9); Immature Granulocytes % 0.3 % (0-4); Lymphocytes % 20.2 %; Mean Corpuscular HGB Conc 30.2 g/dL (31.6-35.5); Mean Corpuscular Hemoglobin 27.8 pg (28.0-33.3); Mean Platelet Volume 10.9 fL (9.4-12.4); Monocytes # 0.5 K/mcL (0.0-1.3); Neutrophils # 7.2 K/mcL (1.6-8.9); Platelet Count 262 K/mcL (140-400); Red Cell Distribution Width 13.4 % (11.5-14.5); Segmented Neutrophils % 72.8 %; White Blood Count 9.9 K/mcL (4.3-11.1)
[2020-12-12 05:59] LABS: BUN/Creatinine Ratio 58 (6-26); Blood Urea Nitrogen 32 mg/dL (8-23); Calcium 8.9 mg/dL (8.6-10.3); Carbon Dioxide 28 mEq/L (23-29); Chloride 106 mEq/L (98-107); Glucose 232 mg/dL (70-105); Osmolality,Calculated 304 (280-300); Sodium 140 mEq/L (136-145); eGFR For African Americans > 60 (> 60); eGFR For Non-African Americans > 60 (> 60)
[2020-12-12] MEDS: levETIRAcetam 500 MG/5 ML UDC GTUBE SCH ×2 (11:59→21:11)
[2020-12-12] MEDS: Apixaban 5 MG TABLET GTUBE SCH ×2 (11:59→21:11)
[2020-12-12] MEDS: Potassium Chloride Elixir 20 MEQ/15 ML UDC GTUBE SCH (11:59)
[2020-12-12] MEDS: Insulin LISPRO 300 UNITS/3 ML VIAL SUBQ SCH ×4 (12:00→21:28)
[2020-12-12] MEDS ORDERED: Cefdinir 125 MG/5 ML UDC GTUBE SCH (14:45)
[2020-12-12] MEDS: Insulin DETEMIR 100 UNIT/ML X5UNITS SUBQ SCH (21:11)
[2020-12-13] MEDS: Cefdinir 125 MG/5 ML UDC GTUBE SCH ×2 (00:48→10:50)
[2020-12-13 02:41] LABS: Basophils # 0.1 K/mcL (0.0-0.2); Basophils % 0.6 %; Eosinophils # 0.1 K/mcL (0.0-0.6); Eosinophils % 1.5 %; Hematocrit 36.8 % (37.5-50.1); Hemoglobin 11.4 g/dL (12.9-16.9); Immature Granulocytes % 0.3 % (0-4); Lymphocytes % 21.5 %; Mean Corpuscular Volume 90.4 fL (83.0-100.0); Mean Platelet Volume 11.2 fL (9.4-12.4); Monocytes # 0.5 K/mcL (0.0-1.3); Monocytes % 5.2 %; Neutrophils # 6.6 K/mcL (1.6-8.9); Platelet Count 300 K/mcL (140-400); Red Blood Count 4.07 M/mcL (4.19-5.50); Red Cell Distribution Width 13.6 % (11.5-14.5); Segmented Neutrophils % 70.9 %; White Blood Count 9.3 K/mcL (4.3-11.1)
[2020-12-13 03:18] LABS: BUN/Creatinine Ratio 58 (6-26); Blood Urea Nitrogen 28 mg/dL (8-23); Calcium 8.9 mg/dL (8.6-10.3); Carbon Dioxide 29 mEq/L (23-29); Chloride 105 mEq/L (98-107); Glucose 201 mg/dL (70-105); Osmolality,Calculated 301 (280-300); Sodium 140 mEq/L (136-145); eGFR For African Americans > 60 (> 60); eGFR For Non-African Americans > 60 (> 60)
[2020-12-13] MEDS: Insulin LISPRO 300 UNITS/3 ML VIAL SUBQ SCH ×3 (10:49→16:23)
[2020-12-13] MEDS: Potassium Chloride Elixir 20 MEQ/15 ML UDC GTUBE SCH (10:50)
[2020-12-13] MEDS: levETIRAcetam 500 MG/5 ML UDC GTUBE SCH (10:50)
[2020-12-13] MEDS: Apixaban 5 MG TABLET GTUBE SCH (10:50)
[2020-12-13 15:24] VITALS: BP 107/65; PULSE 70; TEMP 98.2; O2SAT 92
== END 2020-12-13 16:57 | disposition home health service (06) ==
LOC: EMEROOARM 00:27 → 3ANU 00:27 → SUATTDRO 15:26 → 3ANU 16:33
PROVIDERS: ADMIT Internal Medicine; ATTEND Internal Medicine

== ENCOUNTER 2020-12-19 07:58 | Inpatient (IN) ==
[2020-12-19] MEDS ORDERED: Ondansetron 4 MG/2 ML VIAL ONE (08:39)
[2020-12-19] MEDS ORDERED: 0.9 % Sodium Chloride 1,000 ML ONE ×3 (08:41→17:16)
[2020-12-19 08:53] LABS: Basophils # 0.1 K/mcL (0.0-0.2); Basophils % 0.4 %; Eosinophils % 0.1 %; Hematocrit 43.2 % (37.5-50.1); Immature Granulocytes % 0.5 % (0-4); Lymphocytes % 5.3 %; Mean Corpuscular HGB Conc 31.3 g/dL (31.6-35.5); Mean Corpuscular Hemoglobin 28.1 pg (28.0-33.3); Monocytes # 0.6 K/mcL (0.0-1.3); Monocytes % 3.1 %; Platelet Count 420 K/mcL (140-400); Red Cell Distribution Width 13.9 % (11.5-14.5); Segmented Neutrophils % 90.6 %
[2020-12-19 08:56] LABS: Neutrophils # 16.6 K/mcL (1.6-8.9); White Blood Count 18.3 K/mcL (4.3-11.1)
[2020-12-19 08:57] LABS: Hemoglobin 13.5 g/dL (12.9-16.9)
[2020-12-19] MEDS ORDERED: Isovue-370 500 ML BOTTLE IVP ONE (09:07)
[2020-12-19 09:10] LABS: VBG HCO3 29 mEq/L (21-27); VBG PCO2 57 mmHg (41-51); VBG PH 7.32 pH Units (7.32-7.42); VBG PO2 41 mmHg (25-50)
[2020-12-19] MEDS ORDERED: Piperacillin/Tazobactam 4.5 GM in Water for inj. (sterile) 20 ML IVP ONE (09:10)
[2020-12-19] MEDS ORDERED: Azithromycin 500 MG in 0.9 % Sodium Chloride 250 ML IVPB ONE (09:10)
[2020-12-19 09:15] LABS: BUN/Creatinine Ratio 34 (6-26); Blood Urea Nitrogen 32 mg/dL (8-23); Calcium 9.6 mg/dL (8.6-10.3); Carbon Dioxide 28 mEq/L (23-29); Chloride 96 mEq/L (98-107); Glucose 277 mg/dL (70-105); Osmolality,Calculated 305 (280-300); Potassium 3.6 mEq/L (3.5-5.1); Sodium 139 mEq/L (136-145); Troponin I < 0.03 ng/mL (< 0.04); eGFR For African Americans > 60 (> 60); eGFR For Non-African Americans > 60 (> 60)
[2020-12-19 09:52] LABS: Influenza A PCR Negative (Negative); Influenza B PCR Negative (Negative); Resp. Syncytial Virus PCR Negative (Negative); SARS-CoV-2 by PCR (In House) Negative (Negative)
[2020-12-19] MEDS ORDERED: Piperacillin/Tazobactam 3.375 GM in 0.9 % Sodium Chloride Mini Bag 100 ML IVPB ONE (10:00)
[2020-12-19] MEDS ORDERED: 0.9 % Sodium Chloride 1,000 ML IVC ONE (10:06)
[2020-12-19] MEDS: FentaNYL (PF) 1,000 MCG/100 ML IV.SOLN IVC SCH ×2 (10:20→18:44)
[2020-12-19] MEDS ORDERED: Artificial Tears SOLN 15 ML BOTTLE BOTH EYES PRN (12:32)
[2020-12-19] MEDS ORDERED: Naloxone 0.4 MG/ML INJ IVP PRN (12:32)
[2020-12-19] MEDS ORDERED: Acetaminophen 325 MG TABLET PO PRN (12:53)
[2020-12-19] MEDS ORDERED: Vancomycin (wt based) 1,000 MG VIAL IVPB SCH (13:00)
[2020-12-19 13:02] LABS: ABG PCO2 61 mmHg (35-45); ABG PH 7.27 pH Units (7.32-7.45); ABG PO2 106 mmHg (85-104)
[2020-12-19 13:03] LABS: ABG Base Excess 0 mEq/L (-2 to 3); ABG HCO3 28 mEq/L (21-27); ABG Oxygen Saturation 97 % (95-98); ABG TCO2 30 mEq/L (20-26)
[2020-12-19] MEDS ORDERED: 0.9 % Sodium Chloride 250 ML ONE ×2 (13:44→16:38)
[2020-12-19] MEDS ORDERED: *HR* Norepinephrine 4 MG/4 ML VIAL IVC ONE ×2 (13:44→16:38)
[2020-12-19] MEDS: Norepinephrine 4 MG/254 ML IV.SOLN IVC PRN ×2 (13:45→18:33)
[2020-12-19] MEDS ORDERED: *HR* Rocuronium Bromide 50 MG/5 ML VIAL IVP ONE (15:15)
[2020-12-19] MEDS ORDERED: *HR* Etomidate 20 MG/10 ML AMPUL IVP ONE (15:15)
[2020-12-19] MEDS ORDERED: Hydrocortisone Sodium Succ 100 MG/2 ML VIAL ONE (15:34)
[2020-12-19] MEDS: Pantoprazole 40 MG VIAL IVP SCH (15:44)
[2020-12-19] MEDS: Piperacillin/Tazobactam 3.375 GM in 0.9 % Sodium Chloride Mini Bag 100 ML IVPB SCH ×2 (15:44→23:56)
[2020-12-19] MEDS: Hydrocortisone Sodium Succ 100 MG/2 ML VIAL IVP SCH (15:45)
[2020-12-19] MEDS ORDERED: Perflutren Lipid Microsphere 1.3 ML in 0.9 % Sodium Chloride 8.7 ML IVP PRN ×3 (15:54→18:17)
[2020-12-19] MEDS ORDERED: D5% in Water 1,000 ML IVC PRN (16:02)
[2020-12-19] MEDS ORDERED: Dextrose Gel 15 GM/37.5 ML TUBE PO PRN ×2 (16:02)
[2020-12-19] MEDS: Vasopressin 40 UNIT in D5% in Water 100 ML IVC SCH (16:29)
[2020-12-19] MEDS ORDERED: Albumin Human 5% 12.5 GM/250 ML IV.SOLN IVC SCH (17:00)
[2020-12-19 17:03] LABS: BUN/Creatinine Ratio 33 (6-26); Blood Urea Nitrogen 29 mg/dL (8-23); Calcium 7.5 mg/dL (8.6-10.3); Carbon Dioxide 28 mEq/L (23-29); Chloride 110 mEq/L (98-107); Glucose 179 mg/dL (70-105); Osmolality,Calculated 312 (280-300); Potassium 3.7 mEq/L (3.5-5.1); Sodium 146 mEq/L (136-145); eGFR For African Americans > 60 (> 60); eGFR For Non-African Americans > 60 (> 60)
[2020-12-19 17:15] LABS: Thyroid Stimulating Hormone 1.364 mcIU/mL (0.340-5.600)
[2020-12-19] MEDS ORDERED: Sodium Bicarbonate 150 MEQ in D5% in Water 1,000 ML IVC SCH (17:15)
[2020-12-19 17:31] LABS: ABG Base Excess 5 mEq/L (-2 to 3); ABG Chloride 109 mEq/L (98-107); ABG Glucose 188 mg/dL (60-95); ABG HCO3 35 mEq/L (21-27); ABG Ionized Calcium 1.18 mmol/L (1.15-1.35); ABG Oxygen Saturation 81 % (95-98); ABG PCO2 86 mmHg (35-45); ABG PH 7.22 pH Units (7.32-7.45); ABG PO2 57 mmHg (85-104); ABG TCO2 37 mEq/L (20-26); Blood Gas Modality ASSIST CONTROL; Blood Gas VT 450 cc
[2020-12-19] MEDS ORDERED: *HR* Midazolam HCl 2 MG/2 ML VIAL ONE (17:41)
[2020-12-19 17:45] LABS: ABG Base Excess 2 mEq/L (-2 to 3); ABG HCO3 30 mEq/L (21-27); ABG Oxygen Saturation 94 % (95-98); ABG PCO2 57 mmHg (35-45); ABG PH 7.32 pH Units (7.32-7.45); ABG PO2 77 mmHg (85-104); ABG TCO2 31 mEq/L (20-26); Blood Gas VT 450 cc
[2020-12-19] MEDS: Phenylephrine 10 MG in 0.9 % Sodium Chloride 250 ML IVC SCH ×2 (18:54→19:54)
[2020-12-19] MEDS ORDERED: NOREPINEPHRINE IVC PRN (19:45)
[2020-12-19] MEDS ORDERED: Norepinephrine 8 MG/258 ML IV.SOLN IVC PRN ×2 (19:45→19:49)
[2020-12-19] MEDS: *HR* Heparin 5,000 UNIT/ML VIAL SQ SCH (20:00)
[2020-12-19] MEDS: Artificial Tears SOLN 15 ML BOTTLE BOTH EYES SCH ×3 (20:00→23:55)
[2020-12-19] MEDS: Insulin LISPRO 300 UNITS/3 ML VIAL SUBQ SCH (20:28)
[2020-12-19] MEDS: Chlorhexidine Rinse 15 ML MOUTHWASH MM SCH (20:29)
[2020-12-19] MEDS: Phenylephrine 50 MG in 0.9 % Sodium Chloride 250 ML IVC SCH (21:35)
[2020-12-19] MEDS: Norepinephrine 16 MG in 0.9 % Sodium Chloride 500 ML IVC PRN (22:49)
[2020-12-20] MEDS: Insulin LISPRO 300 UNITS/3 ML VIAL SUBQ SCH ×6 (01:24→20:02)
[2020-12-20] MEDS: Hydrocortisone Sodium Succ 100 MG/2 ML VIAL IVP SCH ×3 (02:28→15:24)
[2020-12-20] MEDS: FentaNYL (PF) 1,000 MCG/100 ML IV.SOLN IVC SCH ×3 (03:10→19:35)
[2020-12-20 04:15] LABS: ABG Base Excess -3 mEq/L (-2 to 3); ABG HCO3 27 mEq/L (21-27); ABG Oxygen Saturation 81 % (95-98); ABG PCO2 78 mmHg (35-45); ABG PH 7.15 pH Units (7.32-7.45); ABG PO2 60 mmHg (85-104); ABG TCO2 30 mEq/L (20-26); Blood Gas VT 300 cc
[2020-12-20 04:21] LABS: Hematocrit 33.5 % (37.5-50.1); Mean Corpuscular HGB Conc 30.1 g/dL (31.6-35.5); Mean Corpuscular Hemoglobin 27.8 pg (28.0-33.3); Mean Corpuscular Volume 92.3 fL (83.0-100.0); Mean Platelet Volume 11.3 fL (9.4-12.4); Platelet Count 310 K/mcL (140-400); Red Blood Count 3.63 M/mcL (4.19-5.50)
[2020-12-20] MEDS: Artificial Tears SOLN 15 ML BOTTLE BOTH EYES SCH ×5 (04:22→19:44)
[2020-12-20 04:23] LABS: VBG Ionized Calcium 1.03 mmol/L (1.15-1.35)
[2020-12-20] MEDS: Phenylephrine 50 MG in 0.9 % Sodium Chloride 250 ML IVC SCH ×3 (04:23→23:07)
[2020-12-20] MEDS: Norepinephrine 16 MG in 0.9 % Sodium Chloride 500 ML IVC PRN ×4 (04:23→23:07)
[2020-12-20 04:33] LABS: BUN/Creatinine Ratio 32 (6-26); Blood Urea Nitrogen 31 mg/dL (8-23); Calcium 7.3 mg/dL (8.6-10.3); Carbon Dioxide 29 mEq/L (23-29); Chloride 113 mEq/L (98-107); Glucose 148 mg/dL (70-105); Magnesium 1.7 mg/dL (1.6-2.6); Osmolality,Calculated 321 (280-300); Phosphorous 3.9 mg/dL (2.7-4.5); Potassium 3.1 mEq/L (3.5-5.1); Sodium 151 mEq/L (136-145); eGFR For African Americans > 60 (> 60); eGFR For Non-African Americans > 60 (> 60)
[2020-12-20 05:25] LABS: Hemoglobin 10.1 g/dL (12.9-16.9); White Blood Count 2.1 K/mcL (4.3-11.1)
[2020-12-20] MEDS: *HR* Heparin 5,000 UNIT/ML VIAL SQ SCH ×2 (06:06→17:51)
[2020-12-20] MEDS: Vasopressin 40 UNIT in D5% in Water 100 ML IVC SCH ×2 (06:38→23:08)
[2020-12-20 06:39] LABS: ABG Base Excess -2 mEq/L (-2 to 3); ABG HCO3 27 mEq/L (21-27); ABG Oxygen Saturation 87 % (95-98); ABG PCO2 67 mmHg (35-45); ABG PH 7.21 pH Units (7.32-7.45); ABG PO2 65 mmHg (85-104); ABG TCO2 29 mEq/L (20-26); Blood Gas VT 380 cc
[2020-12-20] MEDS: Calcium Gluconate 1gm/50mL 1 GM/50 ML BAG IVPB SCH ×2 (06:54→07:53)
[2020-12-20] MEDS ORDERED: Potassium Chloride Elixir 20 MEQ/15 ML UDC GTUBE ONE (06:59)
[2020-12-20 07:02] LABS: Lymphocytes # 0.9 K/mcL (0.6-4.6); Monocytes # 0.2 K/mcL (0.0-1.3)
[2020-12-20 07:03] LABS: Platelet Estimate Normal (Normal); Reactive Lymphocytes Present (Not Present); Toxic Granulation Present (Not Present)
[2020-12-20] MEDS: Piperacillin/Tazobactam 3.375 GM in 0.9 % Sodium Chloride Mini Bag 100 ML IVPB SCH ×2 (08:08→15:09)
[2020-12-20] MEDS: Pantoprazole 40 MG VIAL IVP SCH (08:08)
[2020-12-20] MEDS: Chlorhexidine Rinse 15 ML MOUTHWASH MM SCH ×2 (08:08→19:44)
[2020-12-20 10:08] LABS: Bacteria,Urine Few per hpf (None-Few); Bilirubin,Urine Negative (Negative); Blood,Urine Trace (Negative); Budding Yeast,Urine Few per hpf (None Seen); Clarity,Urine Clear (Clear); Color,Urine Light-Yellow (Yellow); Glucose,Urine (UA) Normal (Normal); Ketones,Urine Negative (Negative); Leukocyte Esterase,Urine Negative (Negative); Mucus,Urine Few per lpf (None-Few); Nitrite,Urine Negative (Negative); Protein,Urine Trace mg/dL (Neg-Trace); RBC,Urine 0-3 per hpf (0-3); Specific Gravity,Urine 1.012 (1.010-1.025); Urobilinogen,Urine Normal (Normal); WBC,Urine 0-3 per hpf (0-3)
[2020-12-20] MEDS: Azithromycin 500 MG in 0.9 % Sodium Chloride 250 ML IVPB SCH (11:27)
[2020-12-20] MEDS: Albumin Human 5% 12.5 GM/250 ML IV.SOLN IVC SCH ×3 (14:34→19:47)
[2020-12-20] MEDS: Dexmedetomidine HCl 400 MCG/100 ML MLS IVC SCH (19:39)
[2020-12-20] MEDS: *HR* Dextrose 50 % in Water (Syg) 50 ML SYRINGE IVP PRN (22:55)
[2020-12-20 23:41] LABS: BUN/Creatinine Ratio 25 (6-26); Blood Urea Nitrogen 21 mg/dL (8-23); Calcium 7.5 mg/dL (8.6-10.3); Carbon Dioxide 26 mEq/L (23-29); Chloride 114 mEq/L (98-107); Glucose 182 mg/dL (70-105); Osmolality,Calculated 318 (280-300); Potassium 3.8 mEq/L (3.5-5.1); Sodium 150 mEq/L (136-145); eGFR For African Americans > 60 (> 60); eGFR For Non-African Americans > 60 (> 60)
[2020-12-21] MEDS: Albumin Human 5% 12.5 GM/250 ML IV.SOLN IVC SCH ×2 (00:18→22:08)
[2020-12-21] MEDS: Hydrocortisone Sodium Succ 100 MG/2 ML VIAL IVP SCH ×3 (00:18→22:08)
[2020-12-21] MEDS: Piperacillin/Tazobactam 3.375 GM in 0.9 % Sodium Chloride Mini Bag 100 ML IVPB SCH ×3 (00:18→16:43)
[2020-12-21] MEDS: Artificial Tears SOLN 15 ML BOTTLE BOTH EYES SCH ×6 (00:19→19:44)
[2020-12-21] MEDS: Insulin LISPRO 300 UNITS/3 ML VIAL SUBQ SCH ×6 (00:28→19:45)
[2020-12-21] MEDS: FentaNYL (PF) 1,000 MCG/100 ML IV.SOLN IVC SCH ×3 (02:44→18:45)
[2020-12-21 03:45] LABS: ABG Base Excess -1 mEq/L (-2 to 3); ABG HCO3 25 mEq/L (21-27); ABG Oxygen Saturation 88 % (95-98); ABG PCO2 50 mmHg (35-45); ABG PH 7.31 pH Units (7.32-7.45); ABG PO2 61 mmHg (85-104); ABG TCO2 27 mEq/L (20-26); Blood Gas VT 380 cc
[2020-12-21 04:30] LABS: Basophils # 0.1 K/mcL (0.0-0.2); Basophils % 1.5 %; Eosinophils % 0.2 %; Hematocrit 28.5 % (37.5-50.1); Hemoglobin 8.9 g/dL (12.9-16.9); Immature Granulocytes % 0.3 % (0-4); Lymphocytes # 0.2 K/mcL (0.6-4.6); Lymphocytes % 3.8 %; Mean Corpuscular HGB Conc 31.2 g/dL (31.6-35.5); Mean Corpuscular Hemoglobin 28.4 pg (28.0-33.3); Mean Corpuscular Volume 91.1 fL (83.0-100.0); Mean Platelet Volume 11.4 fL (9.4-12.4); Monocytes # 0.1 K/mcL (0.0-1.3); Monocytes % 1.5 %; Neutrophils # 5.6 K/mcL (1.6-8.9); Platelet Count 174 K/mcL (140-400); Red Blood Count 3.13 M/mcL (4.19-5.50); Red Cell Distribution Width 14.4 % (11.5-14.5); Segmented Neutrophils % 92.7 %
[2020-12-21 05:06] LABS: BUN/Creatinine Ratio 27 (6-26); Blood Urea Nitrogen 20 mg/dL (8-23); Calcium 7.9 mg/dL (8.6-10.3); Carbon Dioxide 25 mEq/L (23-29); Chloride 115 mEq/L (98-107); Glucose 92 mg/dL (70-105); Magnesium 1.9 mg/dL (1.6-2.6); Osmolality,Calculated 316 (280-300); Phosphorous 1.7 mg/dL (2.7-4.5); Potassium 3.8 mEq/L (3.5-5.1); Sodium 152 mEq/L (136-145); eGFR For African Americans > 60 (> 60); eGFR For Non-African Americans > 60 (> 60)
[2020-12-21] MEDS: *HR* Heparin 5,000 UNIT/ML VIAL SQ SCH ×2 (05:20→18:06)
[2020-12-21 05:32] LABS: Platelet Estimate Normal (Normal)
[2020-12-21] MEDS ORDERED: Potassium Phosphate 44 MEQ in 0.9 % Sodium Chloride 250 ML IVPB ONE (06:14)
[2020-12-21] MEDS: Dexmedetomidine HCl 400 MCG/100 ML MLS IVC SCH ×2 (07:51→19:43)
[2020-12-21] MEDS: Pantoprazole 40 MG VIAL IVP SCH (08:05)
[2020-12-21] MEDS: Chlorhexidine Rinse 15 ML MOUTHWASH MM SCH ×2 (08:13→19:49)
[2020-12-21] MEDS: Norepinephrine 16 MG in 0.9 % Sodium Chloride 500 ML IVC PRN ×2 (08:56→17:55)
[2020-12-21] MEDS: Phenylephrine 50 MG in 0.9 % Sodium Chloride 250 ML IVC SCH ×3 (09:13→20:10)
[2020-12-21] MEDS: Azithromycin 500 MG in 0.9 % Sodium Chloride 250 ML IVPB SCH (10:47)
[2020-12-21 18:15] LABS: BUN/Creatinine Ratio 30 (6-26); Blood Urea Nitrogen 23 mg/dL (8-23); Calcium 7.4 mg/dL (8.6-10.3); Carbon Dioxide 22 mEq/L (23-29); Chloride 117 mEq/L (98-107); Glucose 91 mg/dL (70-105); Osmolality,Calculated 313 (280-300); Potassium 4.4 mEq/L (3.5-5.1); Sodium 150 mEq/L (136-145); eGFR For African Americans > 60 (> 60); eGFR For Non-African Americans > 60 (> 60)
[2020-12-21] MEDS: D5% in Water 1,000 ML IVC SCH (20:09)
[2020-12-21] MEDS: Calcium Gluconate 1gm/50mL 1 GM/50 ML BAG IVPB SCH ×2 (22:07→22:51)
[2020-12-22] MEDS: Phenylephrine 50 MG in 0.9 % Sodium Chloride 250 ML IVC SCH ×4 (01:24→19:25)
[2020-12-22] MEDS: Artificial Tears SOLN 15 ML BOTTLE BOTH EYES SCH ×6 (01:25→19:46)
[2020-12-22] MEDS: Insulin LISPRO 300 UNITS/3 ML VIAL SUBQ SCH ×6 (01:25→19:46)
[2020-12-22] MEDS: Hydrocortisone Sodium Succ 100 MG/2 ML VIAL IVP SCH ×4 (01:26→17:58)
[2020-12-22] MEDS: Piperacillin/Tazobactam 3.375 GM in 0.9 % Sodium Chloride Mini Bag 100 ML IVPB SCH ×3 (01:26→16:38)
[2020-12-22] MEDS: Albumin Human 5% 12.5 GM/250 ML IV.SOLN IVC SCH (01:27)
[2020-12-22] MEDS: Norepinephrine 16 MG in 0.9 % Sodium Chloride 500 ML IVC PRN ×3 (01:39→23:15)
[2020-12-22 03:38] LABS: ABG Base Excess -6 mEq/L (-2 to 3); ABG HCO3 20 mEq/L (21-27); ABG Oxygen Saturation 94 % (95-98); ABG PCO2 41 mmHg (35-45); ABG PH 7.29 pH Units (7.32-7.45); ABG PO2 78 mmHg (85-104); ABG TCO2 21 mEq/L (20-26); Blood Gas VT 380 cc
[2020-12-22 03:41] LABS: Basophils # 0.1 K/mcL (0.0-0.2); Basophils % 1.1 %; Hematocrit 27.4 % (37.5-50.1); Hemoglobin 8.5 g/dL (12.9-16.9); Immature Granulocytes % 13.2 % (0-4); Lymphocytes # 0.3 K/mcL (0.6-4.6); Lymphocytes % 3.8 %; Mean Corpuscular Hemoglobin 28.5 pg (28.0-33.3); Mean Corpuscular Volume 91.9 fL (83.0-100.0); Mean Platelet Volume 11.2 fL (9.4-12.4); Monocytes # 0.2 K/mcL (0.0-1.3); Monocytes % 2.3 %; Neutrophils # 6.5 K/mcL (1.6-8.9); Platelet Count 150 K/mcL (140-400); Red Blood Count 2.98 M/mcL (4.19-5.50); Red Cell Distribution Width 14.7 % (11.5-14.5); Segmented Neutrophils % 79.6 %; White Blood Count 8.2 K/mcL (4.3-11.1)
[2020-12-22 04:01] LABS: BUN/Creatinine Ratio 30 (6-26); Blood Urea Nitrogen 24 mg/dL (8-23); Calcium 7.3 mg/dL (8.6-10.3); Carbon Dioxide 20 mEq/L (23-29); Chloride 115 mEq/L (98-107); Glucose 153 mg/dL (70-105); Magnesium 2.1 mg/dL (1.6-2.6); Osmolality,Calculated 311 (280-300); Phosphorous 2.5 mg/dL (2.7-4.5); Potassium 4.1 mEq/L (3.5-5.1); Sodium 147 mEq/L (136-145); eGFR For African Americans > 60 (> 60); eGFR For Non-African Americans > 60 (> 60)
[2020-12-22 04:07] LABS: VBG Ionized Calcium 1.03 mmol/L (1.15-1.35)
[2020-12-22 04:21] LABS: Platelet Estimate Normal (Normal); Smudge Cells Present (Not Present)
[2020-12-22] MEDS: Calcium Gluconate 1gm/50mL 1 GM/50 ML BAG IVPB SCH ×2 (04:45→05:44)
[2020-12-22] MEDS: FentaNYL (PF) 1,000 MCG/100 ML IV.SOLN IVC SCH ×3 (05:05→19:50)
[2020-12-22] MEDS: *HR* Heparin 5,000 UNIT/ML VIAL SQ SCH ×2 (05:45→17:58)
[2020-12-22] MEDS: Azithromycin 500 MG in 0.9 % Sodium Chloride 250 ML IVPB SCH (08:34)
[2020-12-22] MEDS: Pantoprazole 40 MG VIAL IVP SCH (08:34)
[2020-12-22] MEDS: Chlorhexidine Rinse 15 ML MOUTHWASH MM SCH ×2 (08:34→19:50)
[2020-12-22] MEDS: Dexmedetomidine HCl 400 MCG/100 ML MLS IVC SCH ×2 (08:54→16:40)
[2020-12-22] MEDS: D5% in Water 1,000 ML IVC SCH ×2 (19:45→19:57)
[2020-12-22] MEDS: Vasopressin 40 UNIT in D5% in Water 100 ML IVC SCH (19:46)
[2020-12-23] MEDS: Artificial Tears SOLN 15 ML BOTTLE BOTH EYES SCH ×7 (00:29→23:22)
[2020-12-23] MEDS: Insulin LISPRO 300 UNITS/3 ML VIAL SUBQ SCH ×7 (00:29→23:22)
[2020-12-23] MEDS: Hydrocortisone Sodium Succ 100 MG/2 ML VIAL IVP SCH ×5 (00:33→23:25)
[2020-12-23] MEDS: Piperacillin/Tazobactam 3.375 GM in 0.9 % Sodium Chloride Mini Bag 100 ML IVPB SCH ×4 (00:35→23:24)
[2020-12-23] MEDS: FentaNYL (PF) 1,000 MCG/100 ML IV.SOLN IVC SCH ×4 (02:00→20:28)
[2020-12-23] MEDS: Dexmedetomidine HCl 400 MCG/100 ML MLS IVC SCH ×3 (02:00→20:29)
[2020-12-23 03:43] LABS: ABG Base Excess -9 mEq/L (-2 to 3); ABG HCO3 18 mEq/L (21-27); ABG Oxygen Saturation 88 % (95-98); ABG PCO2 38 mmHg (35-45); ABG PH 7.28 pH Units (7.32-7.45); ABG PO2 62 mmHg (85-104); ABG TCO2 19 mEq/L (20-26); Blood Gas VT 380 cc
[2020-12-23 04:59] LABS: Basophils % 0.1 %; Hematocrit 28.6 % (37.5-50.1); Hemoglobin 8.9 g/dL (12.9-16.9); Immature Granulocytes % 0.2 % (0-4); Lymphocytes # 0.4 K/mcL (0.6-4.6); Lymphocytes % 2.5 %; Mean Corpuscular HGB Conc 31.1 g/dL (31.6-35.5); Mean Corpuscular Hemoglobin 28.3 pg (28.0-33.3); Mean Corpuscular Volume 90.8 fL (83.0-100.0); Mean Platelet Volume 11.4 fL (9.4-12.4); Monocytes # 0.6 K/mcL (0.0-1.3); Monocytes % 3.5 %; Nucleated Red Blood Cells 0.2 /100 WBC (0); Platelet Count 102 K/mcL (140-400); Red Blood Count 3.15 M/mcL (4.19-5.50); Red Cell Distribution Width 15.4 % (11.5-14.5); Segmented Neutrophils % 93.7 %
[2020-12-23 05:04] LABS: Neutrophils # 15.6 K/mcL (1.6-8.9); White Blood Count 16.6 K/mcL (4.3-11.1)
[2020-12-23 05:07] LABS: VBG Ionized Calcium 0.99 mmol/L (1.15-1.35)
[2020-12-23 05:20] LABS: BUN/Creatinine Ratio 41 (6-26); Blood Urea Nitrogen 36 mg/dL (8-23); Calcium 7.4 mg/dL (8.6-10.3); Carbon Dioxide 18 mEq/L (23-29); Chloride 116 mEq/L (98-107); Glucose 160 mg/dL (70-105); Magnesium 2.1 mg/dL (1.6-2.6); Osmolality,Calculated 314 (280-300); Phosphorous 2.4 mg/dL (2.7-4.5); Potassium 4.4 mEq/L (3.5-5.1); Sodium 146 mEq/L (136-145); eGFR For African Americans > 60 (> 60); eGFR For Non-African Americans > 60 (> 60)
[2020-12-23 05:23] LABS: Dohle Bodies Present (Not Present)
[2020-12-23 05:24] LABS: Platelet Estimate Slight Decrease (Normal)
[2020-12-23] MEDS: Calcium Gluconate 1gm/50mL 1 GM/50 ML BAG IVPB SCH ×2 (06:16→06:45)
[2020-12-23] MEDS: *HR* Heparin 5,000 UNIT/ML VIAL SQ SCH ×2 (06:22→17:09)
[2020-12-23] MEDS: Norepinephrine 16 MG in 0.9 % Sodium Chloride 500 ML IVC PRN (07:53)
[2020-12-23] MEDS: Pantoprazole 40 MG VIAL IVP SCH (07:54)
[2020-12-23] MEDS: Chlorhexidine Rinse 15 ML MOUTHWASH MM SCH ×2 (07:54→20:28)
[2020-12-23] MEDS: Azithromycin 500 MG in 0.9 % Sodium Chloride 250 ML IVPB SCH (11:28)
[2020-12-23] MEDS: Vasopressin 40 UNIT in D5% in Water 100 ML IVC SCH (11:29)
[2020-12-23] MEDS ORDERED: Calcium Chloride 1,000 MG in 0.9 % Sodium Chloride 100 ML IVPB ONE (11:45)
[2020-12-24] MEDS: Norepinephrine 16 MG in 0.9 % Sodium Chloride 500 ML IVC PRN (02:00)
[2020-12-24] MEDS: FentaNYL (PF) 1,000 MCG/100 ML IV.SOLN IVC SCH ×4 (02:30→22:30)
[2020-12-24] MEDS: Artificial Tears SOLN 15 ML BOTTLE BOTH EYES SCH ×6 (04:09→23:59)
[2020-12-24] MEDS: Insulin LISPRO 300 UNITS/3 ML VIAL SUBQ SCH ×5 (04:09→19:54)
[2020-12-24] MEDS: Vasopressin 40 UNIT in D5% in Water 100 ML IVC SCH (04:11)
[2020-12-24 04:15] LABS: ABG Base Excess -8 mEq/L (-2 to 3); ABG HCO3 18 mEq/L (21-27); ABG Oxygen Saturation 89 % (95-98); ABG PCO2 36 mmHg (35-45); ABG PH 7.31 pH Units (7.32-7.45); ABG PO2 61 mmHg (85-104); ABG TCO2 19 mEq/L (20-26); Blood Gas VT 380 cc
[2020-12-24 04:48] LABS: Immature Granulocytes % 0.7 % (0-4)
[2020-12-24 04:50] LABS: Basophils # 0.1 K/mcL (0.0-0.2); Basophils % 0.7 %; Hematocrit 29.4 % (37.5-50.1); Hemoglobin 9.1 g/dL (12.9-16.9); Immature Platelets 6.5 % (1.1-6.1); Lymphocytes # 0.6 K/mcL (0.6-4.6); Mean Corpuscular Hemoglobin 27.7 pg (28.0-33.3); Mean Corpuscular Volume 89.4 fL (83.0-100.0); Mean Platelet Volume 12.1 fL (9.4-12.4); Monocytes % 1.9 %; Red Blood Count 3.29 M/mcL (4.19-5.50); Red Cell Distribution Width 15.7 % (11.5-14.5); Segmented Neutrophils % 93.7 %; White Blood Count 18.2 K/mcL (4.3-11.1)
[2020-12-24 04:58] LABS: BUN/Creatinine Ratio 46 (6-26); Blood Urea Nitrogen 43 mg/dL (8-23); Carbon Dioxide 18 mEq/L (23-29); Chloride 118 mEq/L (98-107); Glucose 149 mg/dL (70-105); Osmolality,Calculated 316 (280-300); Phosphorous 2.3 mg/dL (2.7-4.5); Sodium 146 mEq/L (136-145); eGFR For African Americans > 60 (> 60); eGFR For Non-African Americans > 60 (> 60)
[2020-12-24 05:02] LABS: Monocytes # 0.4 K/mcL (0.0-1.3); Neutrophils # 17.1 K/mcL (1.6-8.9); Platelet Count 82 K/mcL (140-400)
[2020-12-24] MEDS: Hydrocortisone Sodium Succ 100 MG/2 ML VIAL IVP SCH ×3 (05:57→18:22)
[2020-12-24] MEDS: *HR* Heparin 5,000 UNIT/ML VIAL SQ SCH ×2 (06:02→18:22)
[2020-12-24] MEDS ORDERED: Furosemide 40 MG/4 ML VIAL IVP ONE (07:23)
[2020-12-24] MEDS: Dexmedetomidine HCl 400 MCG/100 ML MLS IVC SCH ×2 (08:02→18:21)
[2020-12-24] MEDS: Chlorhexidine Rinse 15 ML MOUTHWASH MM SCH ×2 (08:04→19:56)
[2020-12-24] MEDS: Pantoprazole 40 MG VIAL IVP SCH (08:04)
[2020-12-24] MEDS: Piperacillin/Tazobactam 3.375 GM in 0.9 % Sodium Chloride Mini Bag 100 ML IVPB SCH ×2 (08:04→15:34)
[2020-12-24] MEDS ORDERED: Lidocaine Viscous Oral Soln 15 ML SOLUTION ONE (08:11)
[2020-12-25] MEDS: Insulin LISPRO 300 UNITS/3 ML VIAL SUBQ SCH ×6 (00:02→21:26)
[2020-12-25] MEDS: Hydrocortisone Sodium Succ 100 MG/2 ML VIAL IVP SCH ×4 (00:12→17:21)
[2020-12-25] MEDS: Piperacillin/Tazobactam 3.375 GM in 0.9 % Sodium Chloride Mini Bag 100 ML IVPB SCH ×3 (00:15→16:57)
[2020-12-25] MEDS: Artificial Tears SOLN 15 ML BOTTLE BOTH EYES SCH ×5 (03:40→21:25)
[2020-12-25 03:47] LABS: ABG Base Excess -6 mEq/L (-2 to 3); ABG HCO3 19 mEq/L (21-27); ABG Oxygen Saturation 92 % (95-98); ABG PCO2 35 mmHg (35-45); ABG PH 7.34 pH Units (7.32-7.45); ABG PO2 66 mmHg (85-104); ABG TCO2 20 mEq/L (20-26); Blood Gas VT 380 cc
[2020-12-25 04:09] LABS: Basophils # 0.1 K/mcL (0.0-0.2); Basophils % 0.6 %; Hematocrit 30.7 % (37.5-50.1); Hemoglobin 9.9 g/dL (12.9-16.9); Lymphocytes # 0.6 K/mcL (0.6-4.6); Lymphocytes % 2.8 %; Mean Corpuscular HGB Conc 32.2 g/dL (31.6-35.5); Mean Corpuscular Hemoglobin 28.3 pg (28.0-33.3); Mean Corpuscular Volume 87.7 fL (83.0-100.0); Mean Platelet Volume 12.4 fL (9.4-12.4); Monocytes # 0.3 K/mcL (0.0-1.3); Monocytes % 1.4 %; Neutrophils # 21.6 K/mcL (1.6-8.9); Nucleated Red Blood Cells 0.1 /100 WBC (0); Platelet Count 100 K/mcL (140-400); Red Cell Distribution Width 15.8 % (11.5-14.5); Segmented Neutrophils % 94.2 %; White Blood Count 22.9 K/mcL (4.3-11.1)
[2020-12-25 04:31] LABS: BUN/Creatinine Ratio 58 (6-26); Blood Urea Nitrogen 49 mg/dL (8-23); Calcium 6.9 mg/dL (8.6-10.3); Carbon Dioxide 19 mEq/L (23-29); Chloride 119 mEq/L (98-107); Glucose 192 mg/dL (70-105); Magnesium 1.6 mg/dL (1.6-2.6); Osmolality,Calculated 322 (280-300); Phosphorous 1.8 mg/dL (2.7-4.5); Potassium 3.3 mEq/L (3.5-5.1); Sodium 147 mEq/L (136-145); eGFR For African Americans > 60 (> 60); eGFR For Non-African Americans > 60 (> 60)
[2020-12-25] MEDS ORDERED: Potassium Chloride Elixir 20 MEQ/15 ML UDC GTUBE ONE (04:48)
[2020-12-25] MEDS: FentaNYL (PF) 1,000 MCG/100 ML IV.SOLN IVC SCH ×3 (04:55→18:41)
[2020-12-25] MEDS: Dexmedetomidine HCl 400 MCG/100 ML MLS IVC SCH ×2 (04:55→16:56)
[2020-12-25] MEDS: *HR* Heparin 5,000 UNIT/ML VIAL SQ SCH ×2 (05:10→17:21)
[2020-12-25] MEDS ORDERED: Ipratropium/Albuterol Neb 3 ML IH PRN (07:39)
[2020-12-25] MEDS ORDERED: Ipratropium/Albuterol Neb 3 ML ONE (07:45)
[2020-12-25] MEDS: Chlorhexidine Rinse 15 ML MOUTHWASH MM SCH ×2 (08:05→21:26)
[2020-12-25] MEDS: Pantoprazole 40 MG VIAL IVP SCH (08:05)
[2020-12-25] MEDS ORDERED: *HR* Metoprolol 5 MG/5 ML VIAL IVP ONE ×2 (11:00→11:12)
[2020-12-25 12:43] LABS: Magnesium 2.1 mg/dL (1.6-2.6); Phosphorous 3.4 mg/dL (2.7-4.5); Potassium 4.3 mEq/L (3.5-5.1)
[2020-12-25] MEDS: Furosemide 40 MG/4 ML VIAL IVP SCH (14:27)
[2020-12-25] MEDS: Phenylephrine 50 MG in 0.9 % Sodium Chloride 250 ML IVC SCH (21:26)
[2020-12-26] MEDS: Hydrocortisone Sodium Succ 100 MG/2 ML VIAL IVP SCH ×4 (00:03→17:02)
[2020-12-26] MEDS: Artificial Tears SOLN 15 ML BOTTLE BOTH EYES SCH ×6 (00:04→19:52)
[2020-12-26] MEDS: Insulin LISPRO 300 UNITS/3 ML VIAL SUBQ SCH ×6 (00:05→20:55)
[2020-12-26] MEDS: Piperacillin/Tazobactam 3.375 GM in 0.9 % Sodium Chloride Mini Bag 100 ML IVPB SCH ×2 (00:37→07:33)
[2020-12-26] MEDS: FentaNYL (PF) 1,000 MCG/100 ML IV.SOLN IVC SCH ×4 (01:44→19:51)
[2020-12-26] MEDS: Dexmedetomidine HCl 400 MCG/100 ML MLS IVC SCH ×3 (01:55→20:53)
[2020-12-26 04:18] LABS: ABG Base Excess -2 mEq/L (-2 to 3); ABG HCO3 26 mEq/L (21-27); ABG Oxygen Saturation 92 % (95-98); ABG PCO2 57 mmHg (35-45); ABG PH 7.26 pH Units (7.32-7.45); ABG PO2 74 mmHg (85-104); ABG TCO2 27 mEq/L (20-26); Blood Gas Modality ASSIST CONTROL; Blood Gas VT 380 cc
[2020-12-26 04:41] LABS: VBG Ionized Calcium 1.21 mmol/L (1.15-1.35)
[2020-12-26 04:48] LABS: Hemoglobin 8.9 g/dL (12.9-16.9); Red Cell Distribution Width 16.1 % (11.5-14.5)
[2020-12-26 04:50] LABS: Hematocrit 28.1 % (37.5-50.1); Immature Platelets 6.8 % (1.1-6.1); Mean Corpuscular HGB Conc 31.7 g/dL (31.6-35.5); Mean Corpuscular Hemoglobin 28.2 pg (28.0-33.3); Mean Corpuscular Volume 88.9 fL (83.0-100.0); Mean Platelet Volume 11.9 fL (9.4-12.4); Platelet Count 101 K/mcL (140-400); Red Blood Count 3.16 M/mcL (4.19-5.50); White Blood Count 20.3 K/mcL (4.3-11.1)
[2020-12-26 05:00] LABS: BUN/Creatinine Ratio 52 (6-26); Blood Urea Nitrogen 57 mg/dL (8-23); Calcium 7.4 mg/dL (8.6-10.3); Carbon Dioxide 25 mEq/L (23-29); Chloride 119 mEq/L (98-107); Glucose 130 mg/dL (70-105); Magnesium 1.9 mg/dL (1.6-2.6); Osmolality,Calculated 326 (280-300); Phosphorous 2.4 mg/dL (2.7-4.5); Potassium 3.8 mEq/L (3.5-5.1); Sodium 149 mEq/L (136-145); eGFR For African Americans > 60 (> 60); eGFR For Non-African Americans > 60 (> 60)
[2020-12-26 05:33] LABS: Large Platelets Present (Not Present); Lymphocytes # 0.4 K/mcL (0.6-4.6); Neutrophils # 19.9 K/mcL (1.6-8.9); Platelet Estimate Slight Decrease (Normal)
[2020-12-26] MEDS: *HR* Heparin 5,000 UNIT/ML VIAL SQ SCH ×2 (05:39→17:02)
[2020-12-26] MEDS: Chlorhexidine Rinse 15 ML MOUTHWASH MM SCH ×2 (07:33→19:51)
[2020-12-26] MEDS: Pantoprazole 40 MG VIAL IVP SCH (07:34)
[2020-12-26] MEDS: Furosemide 40 MG/4 ML VIAL IVP SCH (07:34)
[2020-12-26] MEDS: cefTRIAXone 1,000 MG in Water for inj. (sterile) 10 ML IVP SCH (13:18)
[2020-12-27] MEDS: Hydrocortisone Sodium Succ 100 MG/2 ML VIAL IVP SCH ×3 (00:11→15:52)
[2020-12-27] MEDS: Artificial Tears SOLN 15 ML BOTTLE BOTH EYES SCH ×6 (00:12→20:18)
[2020-12-27] MEDS: Insulin LISPRO 300 UNITS/3 ML VIAL SUBQ SCH ×6 (00:12→20:17)
[2020-12-27] MEDS: FentaNYL (PF) 1,000 MCG/100 ML IV.SOLN IVC SCH ×3 (02:14→19:05)
[2020-12-27 03:56] LABS: ABG Base Excess 1 mEq/L (-2 to 3); ABG HCO3 28 mEq/L (21-27); ABG Oxygen Saturation 93 % (95-98); ABG PCO2 56 mmHg (35-45); ABG PH 7.31 pH Units (7.32-7.45); ABG PO2 76 mmHg (85-104); ABG TCO2 30 mEq/L (20-26); Blood Gas Modality ASSIST CONTROL; Blood Gas VT 380 cc
[2020-12-27 05:45] LABS: BUN/Creatinine Ratio 55 (6-26); Blood Urea Nitrogen 53 mg/dL (8-23); Calcium 7.4 mg/dL (8.6-10.3); Carbon Dioxide 28 mEq/L (23-29); Chloride 115 mEq/L (98-107); Glucose 177 mg/dL (70-105); Magnesium 1.6 mg/dL (1.6-2.6); Osmolality,Calculated 327 (280-300); Potassium 3.3 mEq/L (3.5-5.1); Sodium 149 mEq/L (136-145); eGFR For African Americans > 60 (> 60); eGFR For Non-African Americans > 60 (> 60)
[2020-12-27] MEDS: Dexmedetomidine HCl 400 MCG/100 ML MLS IVC SCH ×2 (05:56→16:53)
[2020-12-27] MEDS: *HR* Heparin 5,000 UNIT/ML VIAL SQ SCH ×2 (06:50→16:49)
[2020-12-27] MEDS: Furosemide 40 MG/4 ML VIAL IVP SCH (07:29)
[2020-12-27] MEDS: Chlorhexidine Rinse 15 ML MOUTHWASH MM SCH ×2 (07:30→20:19)
[2020-12-27] MEDS: Pantoprazole 40 MG VIAL IVP SCH (07:30)
[2020-12-27] MEDS: cefTRIAXone 1,000 MG in Water for inj. (sterile) 10 ML IVP SCH (07:30)
[2020-12-27 10:36] LABS: Basophils # 0.1 K/mcL (0.0-0.2); Basophils % 0.4 %; Hematocrit 30.7 % (37.5-50.1); Hemoglobin 9.6 g/dL (12.9-16.9); Immature Granulocytes % 1.2 % (0-4); Lymphocytes # 0.7 K/mcL (0.6-4.6); Lymphocytes % 2.8 %; Mean Corpuscular HGB Conc 31.3 g/dL (31.6-35.5); Mean Corpuscular Hemoglobin 27.7 pg (28.0-33.3); Mean Corpuscular Volume 88.7 fL (83.0-100.0); Mean Platelet Volume 12.2 fL (9.4-12.4); Monocytes # 0.3 K/mcL (0.0-1.3); Monocytes % 1.2 %; Neutrophils # 22.8 K/mcL (1.6-8.9); Platelet Count 140 K/mcL (140-400); Red Blood Count 3.46 M/mcL (4.19-5.50); Red Cell Distribution Width 16.3 % (11.5-14.5); Segmented Neutrophils % 94.4 %; White Blood Count 24.2 K/mcL (4.3-11.1)
[2020-12-27 11:26] LABS: Platelet Estimate Slight Decrease (Normal)
[2020-12-27] MEDS: Docusate Oral Soln 100 MG/10 ML UDC GTUBE SCH ×2 (15:52→20:19)
[2020-12-28] MEDS: Artificial Tears SOLN 15 ML BOTTLE BOTH EYES SCH ×6 (00:22→20:54)
[2020-12-28] MEDS: Hydrocortisone Sodium Succ 100 MG/2 ML VIAL IVP SCH ×3 (00:22→15:18)
[2020-12-28] MEDS: Insulin LISPRO 300 UNITS/3 ML VIAL SUBQ SCH ×6 (00:22→20:54)
[2020-12-28] MEDS: Dexmedetomidine HCl 400 MCG/100 ML MLS IVC SCH ×3 (03:16→22:20)
[2020-12-28 03:49] LABS: Hemoglobin 10.2 g/dL (12.9-16.9)
[2020-12-28 03:50] LABS: Hematocrit 32.1 % (37.5-50.1); Mean Corpuscular HGB Conc 31.8 g/dL (31.6-35.5); Mean Corpuscular Hemoglobin 27.6 pg (28.0-33.3); Mean Platelet Volume 11.8 fL (9.4-12.4); Nucleated Red Blood Cells 0.1 /100 WBC (0); Platelet Count 174 K/mcL (140-400); Red Blood Count 3.69 M/mcL (4.19-5.50); Red Cell Distribution Width 16.4 % (11.5-14.5); White Blood Count 27.5 K/mcL (4.3-11.1)
[2020-12-28 03:53] LABS: BUN/Creatinine Ratio 55 (6-26); Blood Urea Nitrogen 44 mg/dL (8-23); Calcium 7.2 mg/dL (8.6-10.3); Carbon Dioxide 32 mEq/L (23-29); Chloride 110 mEq/L (98-107); Glucose 417 mg/dL (70-105); Magnesium 1.5 mg/dL (1.6-2.6); Osmolality,Calculated 337 (280-300); Sodium 149 mEq/L (136-145); eGFR For African Americans > 60 (> 60); eGFR For Non-African Americans > 60 (> 60)
[2020-12-28 04:33] LABS: Lymphocytes # 0.3 K/mcL (0.6-4.6); Monocytes # 0.3 K/mcL (0.0-1.3)
[2020-12-28 04:34] LABS: Platelet Estimate Normal (Normal)
[2020-12-28] MEDS: FentaNYL (PF) 1,000 MCG/100 ML IV.SOLN IVC SCH (04:56)
[2020-12-28 05:06] LABS: ABG Base Excess 5 mEq/L (-2 to 3); ABG HCO3 30 mEq/L (21-27); ABG Oxygen Saturation 95 % (95-98); ABG PCO2 47 mmHg (35-45); ABG PH 7.42 pH Units (7.32-7.45); ABG PO2 74 mmHg (85-104); ABG TCO2 32 mEq/L (20-26); Blood Gas VT 380 cc
[2020-12-28] MEDS: *HR* Heparin 5,000 UNIT/ML VIAL SQ SCH ×2 (06:27→17:11)
[2020-12-28] MEDS: Potassium Chloride 40 MEQ/200 ML BAG IVPB PRN ×2 (06:42→08:32)
[2020-12-28] MEDS: Docusate Oral Soln 100 MG/10 ML UDC GTUBE SCH ×2 (08:32→20:56)
[2020-12-28] MEDS: cefTRIAXone 1,000 MG in Water for inj. (sterile) 10 ML IVP SCH (08:32)
[2020-12-28] MEDS: Furosemide 40 MG/4 ML VIAL IVP SCH (08:32)
[2020-12-28] MEDS: Chlorhexidine Rinse 15 ML MOUTHWASH MM SCH ×2 (08:32→20:56)
[2020-12-28] MEDS: Pantoprazole 40 MG VIAL IVP SCH (08:33)
[2020-12-28] MEDS: Insulin DETEMIR 100 UNIT/ML X5UNITS SUBQ SCH ×2 (13:06→20:56)
[2020-12-28 15:18] LABS: BUN/Creatinine Ratio 53 (6-26); Blood Urea Nitrogen 41 mg/dL (8-23); Calcium 7.2 mg/dL (8.6-10.3); Carbon Dioxide 36 mEq/L (23-29); Chloride 109 mEq/L (98-107); Glucose 379 mg/dL (70-105); Osmolality,Calculated 336 (280-300); Potassium 3.3 mEq/L (3.5-5.1); Sodium 150 mEq/L (136-145); eGFR For African Americans > 60 (> 60); eGFR For Non-African Americans > 60 (> 60)
[2020-12-28] MEDS: Potassium Chloride Elixir 20 MEQ/15 ML UDC GTUBE PRN (17:11)
[2020-12-28 18:38] LABS: Magnesium 1.8 mg/dL (1.6-2.6)
[2020-12-28 21:42] LABS: BUN/Creatinine Ratio 58 (6-26); Blood Urea Nitrogen 40 mg/dL (8-23); Calcium 6.9 mg/dL (8.6-10.3); Carbon Dioxide 35 mEq/L (23-29); Chloride 111 mEq/L (98-107); Glucose 414 mg/dL (70-105); Osmolality,Calculated 335 (280-300); Sodium 149 mEq/L (136-145); eGFR For African Americans > 60 (> 60); eGFR For Non-African Americans > 60 (> 60)
[2020-12-29] MEDS: Artificial Tears SOLN 15 ML BOTTLE BOTH EYES SCH ×6 (00:07→20:00)
[2020-12-29] MEDS: Insulin LISPRO 300 UNITS/3 ML VIAL SUBQ SCH ×6 (00:08→21:29)
[2020-12-29] MEDS: Hydrocortisone Sodium Succ 100 MG/2 ML VIAL IVP SCH ×3 (00:10→17:51)
[2020-12-29] MEDS: Dexmedetomidine HCl 400 MCG/100 ML MLS IVC SCH ×3 (04:28→19:25)
[2020-12-29 04:36] LABS: Basophils % 0.2 %; Hematocrit 29.2 % (37.5-50.1); Hemoglobin 9.3 g/dL (12.9-16.9); Immature Granulocytes % 0.8 % (0-4); Lymphocytes # 0.4 K/mcL (0.6-4.6); Lymphocytes % 2.1 %; Mean Corpuscular HGB Conc 31.8 g/dL (31.6-35.5); Mean Corpuscular Hemoglobin 28.4 pg (28.0-33.3); Mean Platelet Volume 11.9 fL (9.4-12.4); Monocytes # 0.5 K/mcL (0.0-1.3); Monocytes % 2.4 %; Neutrophils # 19.6 K/mcL (1.6-8.9); Platelet Count 155 K/mcL (140-400); Red Blood Count 3.28 M/mcL (4.19-5.50); Red Cell Distribution Width 16.7 % (11.5-14.5); Segmented Neutrophils % 94.5 %; White Blood Count 20.7 K/mcL (4.3-11.1)
[2020-12-29 04:49] LABS: BUN/Creatinine Ratio 58 (6-26); Blood Urea Nitrogen 38 mg/dL (8-23); Calcium 6.9 mg/dL (8.6-10.3); Carbon Dioxide 37 mEq/L (23-29); Chloride 112 mEq/L (98-107); Glucose 285 mg/dL (70-105); Magnesium 2.1 mg/dL (1.6-2.6); Osmolality,Calculated 333 (280-300); Potassium 3.8 mEq/L (3.5-5.1); Sodium 152 mEq/L (136-145); eGFR For African Americans > 60 (> 60); eGFR For Non-African Americans > 60 (> 60)
[2020-12-29 05:00] LABS: Anisocytosis 1+ (Not Present); Hypochromasia Present (Not Present); Platelet Estimate Normal (Normal)
[2020-12-29] MEDS: *HR* Heparin 5,000 UNIT/ML VIAL SQ SCH ×2 (05:16→17:09)
[2020-12-29] MEDS: Insulin DETEMIR 100 UNIT/ML X5UNITS SUBQ SCH ×2 (09:03→21:31)
[2020-12-29] MEDS: cefTRIAXone 1,000 MG in Water for inj. (sterile) 10 ML IVP SCH (09:07)
[2020-12-29] MEDS: Chlorhexidine Rinse 15 ML MOUTHWASH MM SCH ×2 (09:07→21:28)
[2020-12-29] MEDS: Docusate Oral Soln 100 MG/10 ML UDC GTUBE SCH ×2 (09:07→21:30)
[2020-12-29] MEDS: Pantoprazole 40 MG VIAL IVP SCH (09:08)
[2020-12-30] MEDS: Artificial Tears SOLN 15 ML BOTTLE BOTH EYES SCH ×3 (00:42→09:02)
[2020-12-30] MEDS: Insulin LISPRO 300 UNITS/3 ML VIAL SUBQ SCH ×7 (00:42→23:35)
[2020-12-30] MEDS: Dexmedetomidine HCl 400 MCG/100 ML MLS IVC SCH ×3 (03:04→20:07)
[2020-12-30 05:03] LABS: Basophils % 0.1 %; Hematocrit 27.8 % (37.5-50.1); Hemoglobin 8.9 g/dL (12.9-16.9); Immature Granulocytes % 0.7 % (0-4); Lymphocytes # 0.6 K/mcL (0.6-4.6); Lymphocytes % 2.7 %; Mean Corpuscular Hemoglobin 28.1 pg (28.0-33.3); Mean Corpuscular Volume 87.7 fL (83.0-100.0); Mean Platelet Volume 11.7 fL (9.4-12.4); Monocytes # 0.5 K/mcL (0.0-1.3); Monocytes % 2.3 %; Neutrophils # 20.1 K/mcL (1.6-8.9); Platelet Count 174 K/mcL (140-400); Red Blood Count 3.17 M/mcL (4.19-5.50); Red Cell Distribution Width 16.7 % (11.5-14.5); Segmented Neutrophils % 94.2 %; White Blood Count 21.3 K/mcL (4.3-11.1)
[2020-12-30 05:18] LABS: BUN/Creatinine Ratio 73 (6-26); Blood Urea Nitrogen 36 mg/dL (8-23); Calcium 6.9 mg/dL (8.6-10.3); Carbon Dioxide 36 mEq/L (23-29); Chloride 110 mEq/L (98-107); Glucose 285 mg/dL (70-105); Osmolality,Calculated 327 (280-300); Potassium 3.4 mEq/L (3.5-5.1); Sodium 149 mEq/L (136-145); eGFR For African Americans > 60 (> 60); eGFR For Non-African Americans > 60 (> 60)
[2020-12-30 05:33] LABS: Anisocytosis 1+ (Not Present); Platelet Estimate Normal (Normal)
[2020-12-30] MEDS: Potassium Chloride 40 MEQ/200 ML BAG IVPB PRN (06:00)
[2020-12-30] MEDS ORDERED: Furosemide 20 MG/2 ML VIAL IVP ONE ×2 (07:48→11:55)
[2020-12-30] MEDS: cefTRIAXone 1,000 MG in Water for inj. (sterile) 10 ML IVP SCH (09:01)
[2020-12-30] MEDS: Pantoprazole 40 MG VIAL IVP SCH (09:01)
[2020-12-30] MEDS: Chlorhexidine Rinse 15 ML MOUTHWASH MM SCH (09:02)
[2020-12-30] MEDS: Insulin DETEMIR 100 UNIT/ML X5UNITS SUBQ SCH ×2 (09:07→20:11)
[2020-12-30] MEDS: Docusate Oral Soln 100 MG/10 ML UDC GTUBE SCH ×2 (09:08→20:11)
[2020-12-30] MEDS ORDERED: Insulin DETEMIR 100 UNIT/ML X5UNITS SUBQ ONE (11:06)
[2020-12-30] MEDS ORDERED: Albumin 25% 25gram/100mL 25 GM/100 ML IV.SOLN IVPB ONE (11:55)
[2020-12-30] MEDS ORDERED: Furosemide 40 MG/4 ML VIAL IVP ONE ×2 (16:27→22:06)
[2020-12-30] MEDS ORDERED: Furosemide 40 MG/4 ML VIAL ONE (16:27)
[2020-12-30 17:39] LABS: Alanine Aminotransferase 141 Units/L (7-52); Albumin 2.8 g/dL (3.5-5.7); Alkaline Phosphatase 134 Units/L (34-104); Aspartate Amino Transferase 34 Units/L (13-39); BUN/Creatinine Ratio 72 (6-26); Bilirubin,Direct 0.1 mg/dL (0.0-0.2); Bilirubin,Indirect 0.3 mg/dL (0.0-1.0); Bilirubin,Total 0.4 mg/dL (0.3-1.0); Blood Urea Nitrogen 34 mg/dL (8-23); Calcium 7.2 mg/dL (8.6-10.3); Carbon Dioxide 38 mEq/L (23-29); Chloride 110 mEq/L (98-107); Globulin 2.7 g/dL (2.4-3.5); Glucose 165 mg/dL (70-105); Osmolality,Calculated 325 (280-300); Potassium 3.4 mEq/L (3.5-5.1); Sodium 152 mEq/L (136-145); Total Protein 5.5 g/dL (6.4-8.9); eGFR For African Americans > 60 (> 60); eGFR For Non-African Americans > 60 (> 60)
[2020-12-30] MEDS: *HR* Heparin 5,000 UNIT/ML VIAL SQ SCH ×2 (17:41→19:26)
[2020-12-30] MEDS: Potassium Chloride Elixir 20 MEQ/15 ML UDC GTUBE PRN (18:52)
[2020-12-30] MEDS ORDERED: Potassium Chloride Elixir 20 MEQ/15 ML UDC GTUBE ONE (22:07)
[2020-12-30] MEDS: Piperacillin/Tazobactam 3.375 GM in 0.9 % Sodium Chloride Mini Bag 100 ML IVPB SCH (23:36)
[2020-12-31 04:11] LABS: Hematocrit 30.8 % (37.5-50.1); Hemoglobin 9.6 g/dL (12.9-16.9); Mean Corpuscular HGB Conc 31.2 g/dL (31.6-35.5); Mean Corpuscular Hemoglobin 27.8 pg (28.0-33.3); Mean Corpuscular Volume 89.3 fL (83.0-100.0); Mean Platelet Volume 11.8 fL (9.4-12.4); Platelet Count 194 K/mcL (140-400); Red Blood Count 3.45 M/mcL (4.19-5.50); Red Cell Distribution Width 17.2 % (11.5-14.5); White Blood Count 19.8 K/mcL (4.3-11.1)
[2020-12-31 04:31] LABS: VBG Ionized Calcium 1.05 mmol/L (1.15-1.35)
[2020-12-31] MEDS: Insulin LISPRO 300 UNITS/3 ML VIAL SUBQ SCH ×6 (04:31→23:20)
[2020-12-31 04:37] LABS: Lymphocytes # 1.6 K/mcL (0.6-4.6); Neutrophils # 18.2 K/mcL (1.6-8.9); Platelet Estimate Normal (Normal)
[2020-12-31 04:41] LABS: Alanine Aminotransferase 133 Units/L (7-52); Albumin 2.8 g/dL (3.5-5.7); Alkaline Phosphatase 134 Units/L (34-104); Aspartate Amino Transferase 36 Units/L (13-39); BUN/Creatinine Ratio 68 (6-26); Bilirubin,Total 0.5 mg/dL (0.3-1.0); Blood Urea Nitrogen 36 mg/dL (8-23); Calcium 7.5 mg/dL (8.6-10.3); Carbon Dioxide 40 mEq/L (23-29); Chloride 108 mEq/L (98-107); Globulin 2.9 g/dL (2.4-3.5); Glucose 140 mg/dL (70-105); Magnesium 1.8 mg/dL (1.6-2.6); Osmolality,Calculated 325 (280-300); Phosphorous 2.6 mg/dL (2.7-4.5); Potassium 4.8 mEq/L (3.5-5.1); Sodium 152 mEq/L (136-145); Total Protein 5.7 g/dL (6.4-8.9); eGFR For African Americans > 60 (> 60); eGFR For Non-African Americans > 60 (> 60)
[2020-12-31] MEDS: Calcium Gluconate 1gm/50mL 1 GM/50 ML BAG IVPB SCH ×2 (05:36→06:42)
[2020-12-31] MEDS: *HR* Heparin 5,000 UNIT/ML VIAL SQ SCH ×2 (05:38→17:40)
[2020-12-31] MEDS: Dexmedetomidine HCl 400 MCG/100 ML MLS IVC SCH ×2 (07:49→17:40)
[2020-12-31] MEDS: Pantoprazole 40 MG VIAL IVP SCH (07:50)
[2020-12-31] MEDS: Piperacillin/Tazobactam 3.375 GM in 0.9 % Sodium Chloride Mini Bag 100 ML IVPB SCH ×3 (07:50→23:19)
[2020-12-31] MEDS: Docusate Oral Soln 100 MG/10 ML UDC GTUBE SCH ×2 (07:51→20:02)
[2020-12-31] MEDS: Insulin DETEMIR 100 UNIT/ML X5UNITS SUBQ SCH (07:54)
[2020-12-31 09:21] LABS: ABG Base Excess 10 mEq/L (-2 to 3); ABG HCO3 36 mEq/L (21-27); ABG Oxygen Saturation 96 % (95-98); ABG PCO2 54 mmHg (35-45); ABG PH 7.43 pH Units (7.32-7.45); ABG PO2 80 mmHg (85-104); ABG TCO2 37 mEq/L (20-26); Blood Gas Modality AVAPS; Blood Gas VT 450 cc
[2020-12-31] MEDS: FentaNYL (PF) 1,000 MCG/100 ML IV.SOLN IVC SCH ×2 (13:06→23:37)
[2020-12-31] MEDS ORDERED: Isovue-370 500 ML BOTTLE IVP ONE (13:30)
[2020-12-31] MEDS: *HR* Dextrose 50 % in Water (Syg) 50 ML SYRINGE IVP PRN ×2 (16:25→20:01)
[2020-12-31] MEDS ORDERED: *HR* Midazolam HCl 2 MG/2 ML VIAL IVP ONE (16:54)
[2020-12-31] MEDS ORDERED: *HR* Etomidate 20 MG/10 ML AMPUL IVP ONE ×2 (16:54→17:18)
[2020-12-31] MEDS ORDERED: *HR* Rocuronium Bromide 50 MG/5 ML VIAL IVP ONE (17:18)
[2020-12-31] MEDS ORDERED: *HR* Propofol 200 MG/20 ML VIAL IVP ONE (17:18)
[2020-12-31] MEDS ORDERED: Artificial Tears SOLN 15 ML BOTTLE BOTH EYES PRN (19:52)
[2020-12-31] MEDS: Chlorhexidine Rinse 15 ML MOUTHWASH MM SCH (20:03)
[2020-12-31] MEDS: Artificial Tears SOLN 15 ML BOTTLE BOTH EYES SCH ×2 (20:03→23:19)
[2021-01-01] MEDS: *HR* Dextrose 50 % in Water (Syg) 50 ML SYRINGE IVP PRN (03:45)
[2021-01-01 03:54] LABS: ABG Base Excess 10 mEq/L (-2 to 3); ABG HCO3 37 mEq/L (21-27); ABG Oxygen Saturation 97 % (95-98); ABG PCO2 63 mmHg (35-45); ABG PH 7.37 pH Units (7.32-7.45); ABG PO2 101 mmHg (85-104); ABG TCO2 39 mEq/L (20-26); Blood Gas Modality ASSIST CONTROL; Blood Gas VT 440 cc
[2021-01-01] MEDS: D10% in Water 500 ML IVC SCH ×2 (03:55→23:18)
[2021-01-01] MEDS: Insulin LISPRO 300 UNITS/3 ML VIAL SUBQ SCH ×6 (03:56→23:17)
[2021-01-01] MEDS: Artificial Tears SOLN 15 ML BOTTLE BOTH EYES SCH ×6 (03:56→23:18)
[2021-01-01 03:58] LABS: Basophils % 0.1 %; Eosinophils # 0.1 K/mcL (0.0-0.6); Eosinophils % 0.4 %; Hematocrit 25.7 % (37.5-50.1); Hemoglobin 8.2 g/dL (12.9-16.9); Immature Granulocytes % 0.5 % (0-4); Lymphocytes # 0.7 K/mcL (0.6-4.6); Lymphocytes % 3.7 %; Mean Corpuscular HGB Conc 31.9 g/dL (31.6-35.5); Mean Corpuscular Hemoglobin 28.6 pg (28.0-33.3); Mean Corpuscular Volume 89.5 fL (83.0-100.0); Mean Platelet Volume 12.2 fL (9.4-12.4); Monocytes # 0.4 K/mcL (0.0-1.3); Platelet Count 162 K/mcL (140-400); Red Blood Count 2.87 M/mcL (4.19-5.50); Red Cell Distribution Width 17.2 % (11.5-14.5); Segmented Neutrophils % 93.3 %
[2021-01-01 04:03] LABS: Neutrophils # 16.8 K/mcL (1.6-8.9)
[2021-01-01 04:07] LABS: VBG Ionized Calcium 1.15 mmol/L (1.15-1.35)
[2021-01-01 04:17] LABS: BUN/Creatinine Ratio 55 (6-26); Blood Urea Nitrogen 29 mg/dL (8-23); Calcium 7.8 mg/dL (8.6-10.3); Carbon Dioxide 39 mEq/L (23-29); Chloride 107 mEq/L (98-107); Glucose 147 mg/dL (70-105); Magnesium 1.8 mg/dL (1.6-2.6); Osmolality,Calculated 317 (280-300); Phosphorous 4.2 mg/dL (2.7-4.5); Potassium 3.8 mEq/L (3.5-5.1); Sodium 149 mEq/L (136-145); eGFR For African Americans > 60 (> 60); eGFR For Non-African Americans > 60 (> 60)
[2021-01-01 04:25] LABS: Anisocytosis 1+ (Not Present); Platelet Estimate Normal (Normal)
[2021-01-01] MEDS: Potassium Chloride Elixir 20 MEQ/15 ML UDC GTUBE PRN (05:44)
[2021-01-01] MEDS: *HR* Heparin 5,000 UNIT/ML VIAL SQ SCH (05:45)
[2021-01-01] MEDS: Dexmedetomidine HCl 400 MCG/100 ML MLS IVC SCH (06:58)
[2021-01-01] MEDS ORDERED: *HR* Heparin 5,000 UNIT/ML VIAL IVP PRN ×2 (07:42)
[2021-01-01] MEDS ORDERED: *HR* Heparin 5,000 UNIT/ML VIAL IVP ONE (07:42)
[2021-01-01] MEDS: Docusate Oral Soln 100 MG/10 ML UDC GTUBE SCH ×2 (07:56→19:37)
[2021-01-01] MEDS: Chlorhexidine Rinse 15 ML MOUTHWASH MM SCH ×2 (07:56→19:37)
[2021-01-01] MEDS: Pantoprazole 40 MG VIAL IVP SCH (07:56)
[2021-01-01] MEDS: Piperacillin/Tazobactam 3.375 GM in 0.9 % Sodium Chloride Mini Bag 100 ML IVPB SCH ×3 (07:57→23:18)
[2021-01-01] MEDS ORDERED: Insulin DETEMIR 100 UNIT/ML X5UNITS SUBQ SCH (09:00)
[2021-01-01] MEDS: Heparin 25,000UNIT/250ML 1/2NS 25,000 UNIT/250 ML IV.SOLN IVC SCH (09:42)
[2021-01-01 10:59] LABS: Hematocrit 26.2 % (37.5-50.1); Hemoglobin 8.2 g/dL (12.9-16.9); Mean Corpuscular HGB Conc 31.3 g/dL (31.6-35.5); Mean Corpuscular Hemoglobin 28.2 pg (28.0-33.3); Mean Platelet Volume 12.5 fL (9.4-12.4); Platelet Count 154 K/mcL (140-400); Red Blood Count 2.91 M/mcL (4.19-5.50); Red Cell Distribution Width 17.2 % (11.5-14.5); White Blood Count 18.1 K/mcL (4.3-11.1)
[2021-01-01 11:07] LABS: Heparin anti-factor XA UFH < 0.04 IU/mL (0.30-0.70); INR 1.1; Prothrombin Time 12.6 Seconds (9.4-12.1)
[2021-01-01] MEDS ORDERED: Furosemide 40 MG/4 ML VIAL IVP ONE (11:19)
[2021-01-02 03:24] LABS: ABG Base Excess 9 mEq/L (-2 to 3); ABG HCO3 34 mEq/L (21-27); ABG Oxygen Saturation 95 % (95-98); ABG PCO2 52 mmHg (35-45); ABG PH 7.43 pH Units (7.32-7.45); ABG PO2 75 mmHg (85-104); ABG TCO2 36 mEq/L (20-26); Blood Gas Modality ASSIST CONTROL; Blood Gas VT 440 cc
[2021-01-02 04:03] LABS: VBG Ionized Calcium 1.13 mmol/L (1.15-1.35)
[2021-01-02 04:07] LABS: Basophils % 0.1 %; Eosinophils # 0.1 K/mcL (0.0-0.6); Eosinophils % 0.3 %; Hematocrit 24.3 % (37.5-50.1); Hemoglobin 7.7 g/dL (12.9-16.9); Immature Granulocytes % 0.5 % (0-4); Lymphocytes # 0.9 K/mcL (0.6-4.6); Lymphocytes % 5.4 %; Mean Corpuscular HGB Conc 31.7 g/dL (31.6-35.5); Mean Corpuscular Hemoglobin 28.1 pg (28.0-33.3); Mean Corpuscular Volume 88.7 fL (83.0-100.0); Mean Platelet Volume 12.4 fL (9.4-12.4); Monocytes # 0.3 K/mcL (0.0-1.3); Monocytes % 2.1 %; Platelet Count 178 K/mcL (140-400); Red Blood Count 2.74 M/mcL (4.19-5.50); Red Cell Distribution Width 17.5 % (11.5-14.5); Segmented Neutrophils % 91.6 %; White Blood Count 16.2 K/mcL (4.3-11.1)
[2021-01-02 04:09] LABS: Neutrophils # 14.8 K/mcL (1.6-8.9)
[2021-01-02 04:22] LABS: BUN/Creatinine Ratio 53 (6-26); Blood Urea Nitrogen 31 mg/dL (8-23); Calcium 7.9 mg/dL (8.6-10.3); Carbon Dioxide 37 mEq/L (23-29); Chloride 101 mEq/L (98-107); Glucose 304 mg/dL (70-105); Osmolality,Calculated 314 (280-300); Phosphorous 4.1 mg/dL (2.7-4.5); Potassium 4.6 mEq/L (3.5-5.1); Sodium 143 mEq/L (136-145); eGFR For African Americans > 60 (> 60); eGFR For Non-African Americans > 60 (> 60)
[2021-01-02] MEDS: Artificial Tears SOLN 15 ML BOTTLE BOTH EYES SCH ×5 (04:22→20:23)
[2021-01-02] MEDS: Insulin LISPRO 300 UNITS/3 ML VIAL SUBQ SCH ×5 (04:22→20:24)
[2021-01-02 04:30] LABS: Anisocytosis 1+ (Not Present); Platelet Estimate Normal (Normal); Poikilocytosis 1+ (Not Present)
[2021-01-02] MEDS: FentaNYL (PF) 1,000 MCG/100 ML IV.SOLN IVC SCH ×2 (05:46→17:41)
[2021-01-02] MEDS ORDERED: Calcium Gluconate 1gm/50mL 1 GM/50 ML BAG IVPB PRN (07:23)
[2021-01-02] MEDS ORDERED: Furosemide 40 MG/4 ML VIAL IVP SCH ×2 (07:30→09:00)
[2021-01-02] MEDS: Dexmedetomidine HCl 400 MCG/100 ML MLS IVC SCH (07:50)
[2021-01-02] MEDS: Albumin 25% 25gram/100mL 25 GM/100 ML IV.SOLN IVPB SCH ×2 (08:27→20:18)
[2021-01-02] MEDS: Piperacillin/Tazobactam 3.375 GM in 0.9 % Sodium Chloride Mini Bag 100 ML IVPB SCH ×2 (08:35→17:04)
[2021-01-02] MEDS: Furosemide 40 MG/4 ML VIAL IVP SCH ×2 (08:37→23:18)
[2021-01-02] MEDS: Pantoprazole 40 MG VIAL IVP SCH (08:37)
[2021-01-02] MEDS: Chlorhexidine Rinse 15 ML MOUTHWASH MM SCH ×2 (08:37→20:24)
[2021-01-02] MEDS: Docusate Oral Soln 100 MG/10 ML UDC GTUBE SCH ×2 (08:46→23:19)
[2021-01-02] MEDS: Heparin 25,000UNIT/250ML 1/2NS 25,000 UNIT/250 ML IV.SOLN IVC SCH (11:40)
[2021-01-03] MEDS: Piperacillin/Tazobactam 3.375 GM in 0.9 % Sodium Chloride Mini Bag 100 ML IVPB SCH ×3 (00:14→15:52)
[2021-01-03] MEDS: Artificial Tears SOLN 15 ML BOTTLE BOTH EYES SCH ×6 (00:26→21:41)
[2021-01-03] MEDS: Insulin LISPRO 300 UNITS/3 ML VIAL SUBQ SCH ×6 (00:27→21:42)
[2021-01-03 04:16] LABS: ABG Base Excess 14 mEq/L (-2 to 3); ABG HCO3 41 mEq/L (21-27); ABG Oxygen Saturation 95 % (95-98); ABG PCO2 64 mmHg (35-45); ABG PH 7.41 pH Units (7.32-7.45); ABG PO2 76 mmHg (85-104); ABG TCO2 42 mEq/L (20-26); Blood Gas Modality ASSIST CONTROL; Blood Gas VT 400 cc
[2021-01-03 04:41] LABS: VBG Ionized Calcium 1.14 mmol/L (1.15-1.35)
[2021-01-03 04:44] LABS: Hematocrit 20.7 % (37.5-50.1); Hemoglobin 6.6 g/dL (12.9-16.9); Mean Corpuscular HGB Conc 31.9 g/dL (31.6-35.5); Mean Corpuscular Hemoglobin 28.4 pg (28.0-33.3); Mean Corpuscular Volume 89.2 fL (83.0-100.0); Mean Platelet Volume 12.3 fL (9.4-12.4); Platelet Count 160 K/mcL (140-400); Red Blood Count 2.32 M/mcL (4.19-5.50); Red Cell Distribution Width 17.5 % (11.5-14.5); White Blood Count 11.6 K/mcL (4.3-11.1)
[2021-01-03 04:55] LABS: BUN/Creatinine Ratio 42 (6-26); Blood Urea Nitrogen 32 mg/dL (8-23); Calcium 8.5 mg/dL (8.6-10.3); Carbon Dioxide 40 mEq/L (23-29); Chloride 98 mEq/L (98-107); Glucose 110 mg/dL (70-105); Magnesium 1.9 mg/dL (1.6-2.6); Osmolality,Calculated 302 (280-300); Phosphorous 4.8 mg/dL (2.7-4.5); Potassium 4.7 mEq/L (3.5-5.1); Sodium 142 mEq/L (136-145); eGFR For African Americans > 60 (> 60); eGFR For Non-African Americans > 60 (> 60)
[2021-01-03] MEDS ORDERED: 0.9 % Sodium Chloride 250 ML ONE (06:58)
[2021-01-03] MEDS: FentaNYL (PF) 1,000 MCG/100 ML IV.SOLN IVC SCH (07:45)
[2021-01-03] MEDS: Docusate Oral Soln 100 MG/10 ML UDC GTUBE SCH ×2 (08:01→21:42)
[2021-01-03] MEDS: Pantoprazole 40 MG VIAL IVP SCH (08:02)
[2021-01-03] MEDS: Chlorhexidine Rinse 15 ML MOUTHWASH MM SCH ×2 (08:02→21:42)
[2021-01-03 08:06] LABS: Eosinophils # 0.2 K/mcL (0.0-0.6); Lymphocytes # 0.5 K/mcL (0.6-4.6); Monocytes # 0.7 K/mcL (0.0-1.3)
[2021-01-03 08:07] LABS: Anisocytosis 1+ (Not Present); Platelet Estimate Normal (Normal)
[2021-01-03] MEDS: Dexmedetomidine HCl 400 MCG/100 ML MLS IVC SCH (15:26)
[2021-01-03] MEDS: *HR* Heparin 5,000 UNIT/ML VIAL SQ SCH (17:29)
[2021-01-04] MEDS: Piperacillin/Tazobactam 3.375 GM in 0.9 % Sodium Chloride Mini Bag 100 ML IVPB SCH ×3 (00:02→16:55)
[2021-01-04] MEDS: FentaNYL (PF) 1,000 MCG/100 ML IV.SOLN IVC SCH ×2 (00:02→19:36)
[2021-01-04] MEDS: Artificial Tears SOLN 15 ML BOTTLE BOTH EYES SCH ×6 (00:03→21:36)
[2021-01-04] MEDS: Insulin LISPRO 300 UNITS/3 ML VIAL SUBQ SCH ×7 (00:05→23:11)
[2021-01-04 04:02] LABS: Basophils % 0.2 %; Eosinophils # 0.1 K/mcL (0.0-0.6); Eosinophils % 0.6 %; Hematocrit 27.8 % (37.5-50.1); Immature Granulocytes % 0.3 % (0-4); Lymphocytes % 8.6 %; Mean Corpuscular HGB Conc 32.4 g/dL (31.6-35.5); Mean Corpuscular Hemoglobin 29.5 pg (28.0-33.3); Mean Corpuscular Volume 91.1 fL (83.0-100.0); Mean Platelet Volume 11.7 fL (9.4-12.4); Monocytes # 0.8 K/mcL (0.0-1.3); Monocytes % 7.1 %; Neutrophils # 9.2 K/mcL (1.6-8.9); Platelet Count 189 K/mcL (140-400); Red Blood Count 3.05 M/mcL (4.19-5.50); Red Cell Distribution Width 17.7 % (11.5-14.5); Segmented Neutrophils % 83.2 %
[2021-01-04 04:20] LABS: BUN/Creatinine Ratio 43 (6-26); Blood Urea Nitrogen 28 mg/dL (8-23); Calcium 8.8 mg/dL (8.6-10.3); Carbon Dioxide 37 mEq/L (23-29); Chloride 98 mEq/L (98-107); Glucose 116 mg/dL (70-105); Magnesium 2.1 mg/dL (1.6-2.6); Osmolality,Calculated 294 (280-300); Phosphorous 4.1 mg/dL (2.7-4.5); Potassium 5.2 mEq/L (3.5-5.1); Sodium 139 mEq/L (136-145); eGFR For African Americans > 60 (> 60); eGFR For Non-African Americans > 60 (> 60)
[2021-01-04 04:28] LABS: VBG Ionized Calcium 1.21 mmol/L (1.15-1.35)
[2021-01-04 04:46] LABS: Anisocytosis 1+ (Not Present); Platelet Estimate Normal (Normal)
[2021-01-04 05:25] LABS: ABG Base Excess 6 mEq/L (-2 to 3); ABG HCO3 32 mEq/L (21-27); ABG Oxygen Saturation 94 % (95-98); ABG PCO2 54 mmHg (35-45); ABG PH 7.38 pH Units (7.32-7.45); ABG PO2 76 mmHg (85-104); ABG TCO2 34 mEq/L (20-26); Blood Gas Modality ASSIST CONTROL; Blood Gas VT 400 cc
[2021-01-04] MEDS: *HR* Heparin 5,000 UNIT/ML VIAL SQ SCH ×2 (06:13→18:29)
[2021-01-04] MEDS ORDERED: SODIUM ZIRCONIUM CYCLOSILICATE 5 GM POWD.PACK PO ONE (07:56)
[2021-01-04] MEDS: Pantoprazole 40 MG VIAL IVP SCH (09:17)
[2021-01-04] MEDS: Chlorhexidine Rinse 15 ML MOUTHWASH MM SCH ×2 (09:17→21:36)
[2021-01-04] MEDS: Docusate Oral Soln 100 MG/10 ML UDC GTUBE SCH ×2 (09:19→21:37)
[2021-01-04 15:18] LABS: BUN/Creatinine Ratio 41 (6-26); Blood Urea Nitrogen 26 mg/dL (8-23); Calcium 8.9 mg/dL (8.6-10.3); Carbon Dioxide 36 mEq/L (23-29); Chloride 97 mEq/L (98-107); Glucose 202 mg/dL (70-105); Osmolality,Calculated 291 (280-300); Sodium 135 mEq/L (136-145); eGFR For African Americans > 60 (> 60); eGFR For Non-African Americans > 60 (> 60)
[2021-01-05] MEDS: Artificial Tears SOLN 15 ML BOTTLE BOTH EYES SCH ×7 (00:06→23:57)
[2021-01-05] MEDS: Dexmedetomidine HCl 400 MCG/100 ML MLS IVC SCH ×2 (01:35→16:53)
[2021-01-05] MEDS: Insulin LISPRO 300 UNITS/3 ML VIAL SUBQ SCH ×6 (04:35→23:57)
[2021-01-05 04:44] LABS: VBG Ionized Calcium 1.22 mmol/L (1.15-1.35)
[2021-01-05 05:05] LABS: Basophils % 0.1 %; Eosinophils # 0.1 K/mcL (0.0-0.6); Eosinophils % 0.5 %; Hematocrit 27.4 % (37.5-50.1); Hemoglobin 8.8 g/dL (12.9-16.9); Immature Granulocytes % 0.5 % (0-4); Lymphocytes # 0.9 K/mcL (0.6-4.6); Mean Corpuscular HGB Conc 32.1 g/dL (31.6-35.5); Mean Corpuscular Hemoglobin 29.5 pg (28.0-33.3); Mean Corpuscular Volume 91.9 fL (83.0-100.0); Mean Platelet Volume 11.8 fL (9.4-12.4); Monocytes # 0.8 K/mcL (0.0-1.3); Neutrophils # 9.3 K/mcL (1.6-8.9); Platelet Count 197 K/mcL (140-400); Red Blood Count 2.98 M/mcL (4.19-5.50); Red Cell Distribution Width 17.9 % (11.5-14.5); Segmented Neutrophils % 83.9 %; White Blood Count 11.1 K/mcL (4.3-11.1)
[2021-01-05 05:15] LABS: ABG Base Excess 3 mEq/L (-2 to 3); ABG HCO3 29 mEq/L (21-27); ABG Oxygen Saturation 95 % (95-98); ABG PCO2 47 mmHg (35-45); ABG PO2 78 mmHg (85-104); ABG TCO2 30 mEq/L (20-26); Blood Gas Modality ASSIST CONTROL; Blood Gas VT 400 cc
[2021-01-05 05:26] LABS: BUN/Creatinine Ratio 43 (6-26); Blood Urea Nitrogen 26 mg/dL (8-23); Carbon Dioxide 35 mEq/L (23-29); Chloride 97 mEq/L (98-107); Glucose 128 mg/dL (70-105); Osmolality,Calculated 288 (280-300); Phosphorous 3.6 mg/dL (2.7-4.5); Potassium 4.8 mEq/L (3.5-5.1); Sodium 136 mEq/L (136-145); eGFR For African Americans > 60 (> 60); eGFR For Non-African Americans > 60 (> 60)
[2021-01-05 05:41] LABS: Platelet Estimate Normal (Normal)
[2021-01-05] MEDS: *HR* Heparin 5,000 UNIT/ML VIAL SQ SCH ×2 (06:04→17:37)
[2021-01-05] MEDS: FentaNYL (PF) 1,000 MCG/100 ML IV.SOLN IVC SCH ×2 (06:04→21:18)
[2021-01-05] MEDS: Docusate Oral Soln 100 MG/10 ML UDC GTUBE SCH ×2 (07:52→20:33)
[2021-01-05] MEDS: Pantoprazole 40 MG VIAL IVP SCH (07:55)
[2021-01-05] MEDS: Chlorhexidine Rinse 15 ML MOUTHWASH MM SCH ×2 (07:55→20:33)
[2021-01-06] MEDS: Artificial Tears SOLN 15 ML BOTTLE BOTH EYES SCH ×6 (03:46→23:46)
[2021-01-06] MEDS: Insulin LISPRO 300 UNITS/3 ML VIAL SUBQ SCH ×6 (03:46→23:47)
[2021-01-06 03:53] LABS: Basophils % 0.1 %; Eosinophils # 0.1 K/mcL (0.0-0.6); Eosinophils % 0.5 %; Hematocrit 23.6 % (37.5-50.1); Hemoglobin 7.6 g/dL (12.9-16.9); Immature Granulocytes % 0.3 % (0-4); Lymphocytes # 0.9 K/mcL (0.6-4.6); Mean Corpuscular HGB Conc 32.2 g/dL (31.6-35.5); Mean Corpuscular Hemoglobin 29.5 pg (28.0-33.3); Mean Corpuscular Volume 91.5 fL (83.0-100.0); Mean Platelet Volume 11.3 fL (9.4-12.4); Monocytes # 0.7 K/mcL (0.0-1.3); Platelet Count 181 K/mcL (140-400); Red Blood Count 2.58 M/mcL (4.19-5.50); Red Cell Distribution Width 18.3 % (11.5-14.5); Segmented Neutrophils % 83.1 %; White Blood Count 9.6 K/mcL (4.3-11.1)
[2021-01-06 04:00] LABS: ABG Base Excess 4 mEq/L (-2 to 3); ABG HCO3 29 mEq/L (21-27); ABG Oxygen Saturation 93 % (95-98); ABG PCO2 47 mmHg (35-45); ABG PO2 67 mmHg (85-104); ABG TCO2 31 mEq/L (20-26); Blood Gas VT 400 cc
[2021-01-06 04:13] LABS: BUN/Creatinine Ratio 39 (6-26); Blood Urea Nitrogen 24 mg/dL (8-23); Calcium 8.4 mg/dL (8.6-10.3); Carbon Dioxide 33 mEq/L (23-29); Chloride 95 mEq/L (98-107); Glucose 306 mg/dL (70-105); Magnesium 1.7 mg/dL (1.6-2.6); Osmolality,Calculated 292 (280-300); Phosphorous 3.5 mg/dL (2.7-4.5); Sodium 133 mEq/L (136-145); eGFR For African Americans > 60 (> 60); eGFR For Non-African Americans > 60 (> 60)
[2021-01-06] MEDS: *HR* Heparin 5,000 UNIT/ML VIAL SQ SCH ×2 (05:18→17:35)
[2021-01-06] MEDS: FentaNYL (PF) 1,000 MCG/100 ML IV.SOLN IVC SCH ×2 (07:30→17:30)
[2021-01-06] MEDS: Dexmedetomidine HCl 400 MCG/100 ML MLS IVC SCH ×2 (07:30→20:08)
[2021-01-06] MEDS: Docusate Oral Soln 100 MG/10 ML UDC GTUBE SCH ×2 (08:15→20:08)
[2021-01-06] MEDS: Chlorhexidine Rinse 15 ML MOUTHWASH MM SCH ×2 (08:20→20:08)
[2021-01-06] MEDS: Pantoprazole 40 MG VIAL IVP SCH (08:20)
[2021-01-07 03:43] LABS: Basophils % 0.1 %; Eosinophils % 0.4 %; Hemoglobin 6.8 g/dL (12.9-16.9); Immature Granulocytes % 0.5 % (0-4); Lymphocytes # 0.9 K/mcL (0.6-4.6); Lymphocytes % 11.1 %; Mean Corpuscular HGB Conc 30.9 g/dL (31.6-35.5); Mean Corpuscular Hemoglobin 28.6 pg (28.0-33.3); Mean Corpuscular Volume 92.4 fL (83.0-100.0); Mean Platelet Volume 10.8 fL (9.4-12.4); Monocytes # 0.7 K/mcL (0.0-1.3); Monocytes % 8.3 %; Neutrophils # 6.3 K/mcL (1.6-8.9); Platelet Count 177 K/mcL (140-400); Red Blood Count 2.38 M/mcL (4.19-5.50); Red Cell Distribution Width 18.6 % (11.5-14.5); Segmented Neutrophils % 79.6 %
[2021-01-07 03:50] LABS: VBG Ionized Calcium 1.19 mmol/L (1.15-1.35)
[2021-01-07 04:17] LABS: Alanine Aminotransferase 34 Units/L (7-52); Albumin 2.6 g/dL (3.5-5.7); Albumin/Globulin Ratio 0.7 (1.1-2.2); Alkaline Phosphatase 86 Units/L (34-104); Aspartate Amino Transferase 24 Units/L (13-39); BUN/Creatinine Ratio 49 (6-26); Bilirubin,Total 0.5 mg/dL (0.3-1.0); Blood Urea Nitrogen 32 mg/dL (8-23); Calcium 8.4 mg/dL (8.6-10.3); Carbon Dioxide 33 mEq/L (23-29); Chloride 94 mEq/L (98-107); Glucose 247 mg/dL (70-105); Magnesium 2.2 mg/dL (1.6-2.6); Osmolality,Calculated 289 (280-300); Phosphorous 4.2 mg/dL (2.7-4.5); Sodium 132 mEq/L (136-145); Total Protein 6.6 g/dL (6.4-8.9); eGFR For African Americans > 60 (> 60); eGFR For Non-African Americans > 60 (> 60)
[2021-01-07 04:18] LABS: Albumin 2.5 g/dL (3.5-5.7); Albumin/Globulin Ratio 0.6 (1.1-2.2); Bilirubin,Direct 0.1 mg/dL (0.0-0.2); Bilirubin,Indirect 0.4 mg/dL (0.0-1.0); Bilirubin,Total 0.5 mg/dL (0.3-1.0); Total Protein 6.5 g/dL (6.4-8.9)
[2021-01-07 04:39] LABS: ABG Base Excess 5 mEq/L (-2 to 3); ABG HCO3 31 mEq/L (21-27); ABG Oxygen Saturation 96 % (95-98); ABG PCO2 53 mmHg (35-45); ABG PH 7.37 pH Units (7.32-7.45); ABG PO2 84 mmHg (85-104); ABG TCO2 33 mEq/L (20-26); Blood Gas VT 400 cc
[2021-01-07] MEDS: Artificial Tears SOLN 15 ML BOTTLE BOTH EYES SCH ×6 (04:48→23:33)
[2021-01-07] MEDS: Insulin LISPRO 300 UNITS/3 ML VIAL SUBQ SCH ×6 (04:51→23:32)
[2021-01-07] MEDS: *HR* Heparin 5,000 UNIT/ML VIAL SQ SCH (04:54)
[2021-01-07] MEDS ORDERED: 0.9 % Sodium Chloride 250 ML IVC SCH (06:00)
[2021-01-07] MEDS: FentaNYL (PF) 1,000 MCG/100 ML IV.SOLN IVC SCH ×2 (07:06→17:21)
[2021-01-07] MEDS: Chlorhexidine Rinse 15 ML MOUTHWASH MM SCH ×2 (08:37→20:06)
[2021-01-07] MEDS: Dexmedetomidine HCl 400 MCG/100 ML MLS IVC SCH ×2 (08:37→23:28)
[2021-01-07] MEDS: Docusate Oral Soln 100 MG/10 ML UDC GTUBE SCH ×2 (08:37→20:06)
[2021-01-07] MEDS: Pantoprazole 40 MG VIAL IVP SCH (08:37)
[2021-01-07] MEDS ORDERED: 0.9 % Sodium Chloride 250 ML ONE (09:52)
[2021-01-07] MEDS ORDERED: Calcium Gluconate 1gm/50mL 1 GM/50 ML BAG IVPB PRN (14:47)
[2021-01-07] MEDS ORDERED: Ipratropium/Albuterol Neb 3 ML IH PRN (14:47)
[2021-01-07] MEDS ORDERED: Artificial Tears SOLN 15 ML BOTTLE BOTH EYES PRN (14:47)
[2021-01-07] MEDS ORDERED: *HR* Dextrose 50 % in Water (Syg) 50 ML SYRINGE IVP PRN (14:47)
[2021-01-07] MEDS ORDERED: Naloxone 0.4 MG/ML INJ IVP PRN (14:47)
[2021-01-07] MEDS ORDERED: D5% in Water 1,000 ML IVC PRN (14:47)
[2021-01-07] MEDS ORDERED: Dextrose Gel 15 GM/37.5 ML TUBE PO PRN ×2 (14:47)
[2021-01-07 14:51] LABS: Hematocrit 26.2 % (37.5-50.1)
[2021-01-07 14:52] LABS: Hemoglobin 8.6 g/dL (12.9-16.9)
[2021-01-07 15:24] LABS: % Iron Saturation 20 % (20-55); Iron 42 mcg/dL (65-175); Transferrin 151 mg/dL (203-362)
[2021-01-07 15:41] LABS: Basophils % 0.2 %; Eosinophils # 0.1 K/mcL (0.0-0.6); Eosinophils % 0.7 %; Immature Granulocytes % 0.3 % (0-4); Lymphocytes # 0.9 K/mcL (0.6-4.6); Lymphocytes % 9.7 %; Mean Corpuscular HGB Conc 31.6 g/dL (31.6-35.5); Mean Corpuscular Hemoglobin 29.1 pg (28.0-33.3); Mean Corpuscular Volume 91.9 fL (83.0-100.0); Mean Platelet Volume 11.6 fL (9.4-12.4); Monocytes # 0.7 K/mcL (0.0-1.3); Monocytes % 7.6 %; Neutrophils # 7.3 K/mcL (1.6-8.9); Platelet Count 203 K/mcL (140-400); Red Blood Count 2.96 M/mcL (4.19-5.50); Red Cell Distribution Width 17.6 % (11.5-14.5); Segmented Neutrophils % 81.5 %; White Blood Count 8.9 K/mcL (4.3-11.1)
[2021-01-08 03:45] LABS: ABG Base Excess 4 mEq/L (-2 to 3); ABG HCO3 30 mEq/L (21-27); ABG Oxygen Saturation 91 % (95-98); ABG PCO2 48 mmHg (35-45); ABG PO2 61 mmHg (85-104); ABG TCO2 31 mEq/L (20-26); Blood Gas VT 400 cc
[2021-01-08] MEDS: Artificial Tears SOLN 15 ML BOTTLE BOTH EYES SCH ×6 (04:01→23:58)
[2021-01-08] MEDS: Insulin LISPRO 300 UNITS/3 ML VIAL SUBQ SCH ×6 (04:02→23:59)
[2021-01-08 04:26] LABS: Basophils % 0.4 %; Eosinophils % 0.5 %; Hematocrit 25.3 % (37.5-50.1); Hemoglobin 8.3 g/dL (12.9-16.9); Immature Granulocytes % 0.5 % (0-4); Lymphocytes # 0.9 K/mcL (0.6-4.6); Lymphocytes % 10.3 %; Mean Corpuscular HGB Conc 32.8 g/dL (31.6-35.5); Mean Corpuscular Hemoglobin 29.7 pg (28.0-33.3); Mean Corpuscular Volume 90.7 fL (83.0-100.0); Monocytes # 0.7 K/mcL (0.0-1.3); Monocytes % 8.4 %; Neutrophils # 6.8 K/mcL (1.6-8.9); Platelet Count 204 K/mcL (140-400); Red Blood Count 2.79 M/mcL (4.19-5.50); Red Cell Distribution Width 17.7 % (11.5-14.5); Segmented Neutrophils % 79.9 %; White Blood Count 8.5 K/mcL (4.3-11.1)
[2021-01-08 04:34] LABS: VBG Ionized Calcium 1.19 mmol/L (1.15-1.35)
[2021-01-08 04:43] LABS: Alanine Aminotransferase 33 Units/L (7-52); Albumin 2.6 g/dL (3.5-5.7); Albumin/Globulin Ratio 0.6 (1.1-2.2); Alkaline Phosphatase 94 Units/L (34-104); Aspartate Amino Transferase 24 Units/L (13-39); Bilirubin,Direct 0.2 mg/dL (0.0-0.2); Bilirubin,Indirect 0.5 mg/dL (0.0-1.0); Bilirubin,Total 0.7 mg/dL (0.3-1.0); Globulin 4.2 g/dL (2.4-3.5); Total Protein 6.8 g/dL (6.4-8.9)
[2021-01-08] MEDS: Chlorhexidine Rinse 15 ML MOUTHWASH MM SCH ×2 (07:59→19:25)
[2021-01-08] MEDS: Docusate Oral Soln 100 MG/10 ML UDC GTUBE SCH ×2 (08:00→19:28)
[2021-01-08] MEDS: Pantoprazole 40 MG VIAL IVP SCH (08:00)
[2021-01-08] MEDS: FentaNYL (PF) 1,000 MCG/100 ML IV.SOLN IVC SCH ×2 (08:02→18:08)
[2021-01-08 08:46] LABS: BUN/Creatinine Ratio 49 (6-26); Blood Urea Nitrogen 31 mg/dL (8-23); Calcium 8.3 mg/dL (8.6-10.3); Carbon Dioxide 31 mEq/L (23-29); Chloride 94 mEq/L (98-107); Glucose 279 mg/dL (70-105); Magnesium 1.9 mg/dL (1.6-2.6); Osmolality,Calculated 293 (280-300); Phosphorous 4.3 mg/dL (2.7-4.5); Potassium 3.8 mEq/L (3.5-5.1); Sodium 133 mEq/L (136-145); eGFR For African Americans > 60 (> 60); eGFR For Non-African Americans > 60 (> 60)
[2021-01-08] MEDS: Dexmedetomidine HCl 400 MCG/100 ML MLS IVC SCH ×2 (09:46→20:36)
[2021-01-09] MEDS: Insulin LISPRO 300 UNITS/3 ML VIAL SUBQ SCH ×5 (03:07→20:16)
[2021-01-09] MEDS: Artificial Tears SOLN 15 ML BOTTLE BOTH EYES SCH ×5 (03:07→20:18)
[2021-01-09 03:15] LABS: Basophils % 0.3 %; Eosinophils # 0.1 K/mcL (0.0-0.6); Eosinophils % 0.7 %; Hematocrit 24.4 % (37.5-50.1); Hemoglobin 7.8 g/dL (12.9-16.9); Immature Granulocytes % 0.3 % (0-4); Lymphocytes # 0.8 K/mcL (0.6-4.6); Lymphocytes % 12.4 %; Mean Corpuscular Hemoglobin 29.3 pg (28.0-33.3); Mean Corpuscular Volume 91.7 fL (83.0-100.0); Mean Platelet Volume 10.4 fL (9.4-12.4); Monocytes # 0.7 K/mcL (0.0-1.3); Monocytes % 10.8 %; Neutrophils # 5.1 K/mcL (1.6-8.9); Platelet Count 188 K/mcL (140-400); Red Blood Count 2.66 M/mcL (4.19-5.50); Red Cell Distribution Width 17.6 % (11.5-14.5); Segmented Neutrophils % 75.5 %; White Blood Count 6.8 K/mcL (4.3-11.1)
[2021-01-09 03:23] LABS: VBG Ionized Calcium 1.21 mmol/L (1.15-1.35)
[2021-01-09 03:35] LABS: Alanine Aminotransferase 29 Units/L (7-52); Albumin 2.5 g/dL (3.5-5.7); Albumin/Globulin Ratio 0.6 (1.1-2.2); Alkaline Phosphatase 84 Units/L (34-104); Aspartate Amino Transferase 21 Units/L (13-39); BUN/Creatinine Ratio 48 (6-26); Bilirubin,Total 0.6 mg/dL (0.3-1.0); Blood Urea Nitrogen 25 mg/dL (8-23); Calcium 8.5 mg/dL (8.6-10.3); Carbon Dioxide 32 mEq/L (23-29); Chloride 95 mEq/L (98-107); Globulin 4.1 g/dL (2.4-3.5); Glucose 230 mg/dL (70-105); Osmolality,Calculated 288 (280-300); Phosphorous 3.8 mg/dL (2.7-4.5); Potassium 3.4 mEq/L (3.5-5.1); Sodium 133 mEq/L (136-145); Total Protein 6.6 g/dL (6.4-8.9); eGFR For African Americans > 60 (> 60); eGFR For Non-African Americans > 60 (> 60)
[2021-01-09] MEDS: FentaNYL (PF) 1,000 MCG/100 ML IV.SOLN IVC SCH ×4 (03:38→23:49)
[2021-01-09 04:23] LABS: Blood Gas VT 400 cc; VBG HCO3 30 mEq/L (21-27); VBG PCO2 51 mmHg (41-51); VBG PH 7.38 pH Units (7.32-7.42); VBG PO2 65 mmHg (25-50)
[2021-01-09] MEDS ORDERED: Potassium Chloride 40 MEQ/200 ML BAG IVPB PRN (05:10)
[2021-01-09 05:52] LABS: Bilirubin,Direct 0.1 mg/dL (0.0-0.2); Bilirubin,Indirect 0.5 mg/dL (0.0-1.0)
[2021-01-09] MEDS: Docusate Oral Soln 100 MG/10 ML UDC GTUBE SCH ×2 (07:55→19:47)
[2021-01-09] MEDS: Pantoprazole 40 MG VIAL IVP SCH (07:55)
[2021-01-09] MEDS: Chlorhexidine Rinse 15 ML MOUTHWASH MM SCH ×2 (07:55→20:18)
[2021-01-09] MEDS ORDERED: Lidocaine/EPI 1:100k 1% 50 ML VIAL ONE (14:55)
[2021-01-09] MEDS ORDERED: Lidocaine -MPF 2% 5 ML VIAL ONE (15:03)
[2021-01-09] MEDS ORDERED: *HR* Rocuronium Bromide 50 MG/5 ML VIAL ONE (15:03)
[2021-01-09] MEDS ORDERED: *HR* Propofol 200 MG/20 ML VIAL IVP ONE (15:03)
[2021-01-09] MEDS: Dexmedetomidine HCl 400 MCG/100 ML MLS IVC SCH (17:12)
[2021-01-10] MEDS: Artificial Tears SOLN 15 ML BOTTLE BOTH EYES SCH ×6 (00:24→21:03)
[2021-01-10] MEDS: Insulin LISPRO 300 UNITS/3 ML VIAL SUBQ SCH ×6 (00:24→20:53)
[2021-01-10] MEDS: Dexmedetomidine HCl 400 MCG/100 ML MLS IVC SCH ×2 (01:40→16:17)
[2021-01-10 04:35] LABS: ABG Base Excess 6 mEq/L (-2 to 3); ABG HCO3 32 mEq/L (21-27); ABG Oxygen Saturation 96 % (95-98); ABG PCO2 54 mmHg (35-45); ABG PH 7.38 pH Units (7.32-7.45); ABG PO2 84 mmHg (85-104); ABG TCO2 34 mEq/L (20-26); Blood Gas Modality ASSIST CONTROL; Blood Gas VT 400 cc
[2021-01-10 05:19] LABS: Basophils % 0.5 %; Eosinophils # 0.1 K/mcL (0.0-0.6); Eosinophils % 1.2 %; Hematocrit 25.3 % (37.5-50.1); Hemoglobin 7.7 g/dL (12.9-16.9); Immature Granulocytes % 0.5 % (0-4); Lymphocytes # 0.8 K/mcL (0.6-4.6); Lymphocytes % 13.5 %; Mean Corpuscular HGB Conc 30.4 g/dL (31.6-35.5); Mean Corpuscular Hemoglobin 28.7 pg (28.0-33.3); Mean Corpuscular Volume 94.4 fL (83.0-100.0); Mean Platelet Volume 10.7 fL (9.4-12.4); Monocytes # 0.7 K/mcL (0.0-1.3); Monocytes % 12.6 %; Neutrophils # 4.2 K/mcL (1.6-8.9); Platelet Count 205 K/mcL (140-400); Red Blood Count 2.68 M/mcL (4.19-5.50); Red Cell Distribution Width 17.5 % (11.5-14.5); Segmented Neutrophils % 71.7 %; White Blood Count 5.8 K/mcL (4.3-11.1)
[2021-01-10 05:40] LABS: Alanine Aminotransferase 23 Units/L (7-52); Albumin 2.6 g/dL (3.5-5.7); Albumin/Globulin Ratio 0.6 (1.1-2.2); Alkaline Phosphatase 72 Units/L (34-104); Aspartate Amino Transferase 16 Units/L (13-39); BUN/Creatinine Ratio 38 (6-26); Bilirubin,Total 0.3 mg/dL (0.3-1.0); Blood Urea Nitrogen 20 mg/dL (8-23); Calcium 8.4 mg/dL (8.6-10.3); Carbon Dioxide 34 mEq/L (23-29); Chloride 99 mEq/L (98-107); Globulin 4.2 g/dL (2.4-3.5); Glucose 36 mg/dL (70-105); Osmolality,Calculated 283 (280-300); Potassium 3.7 mEq/L (3.5-5.1); Sodium 137 mEq/L (136-145); Total Protein 6.8 g/dL (6.4-8.9); eGFR For African Americans > 60 (> 60); eGFR For Non-African Americans > 60 (> 60)
[2021-01-10] MEDS: FentaNYL (PF) 1,000 MCG/100 ML IV.SOLN IVC SCH ×2 (06:24→08:04)
[2021-01-10] MEDS ORDERED: Potassium Chloride Elixir 20 MEQ/15 ML UDC PO ONE (06:44)
[2021-01-10] MEDS: Chlorhexidine Rinse 15 ML MOUTHWASH MM SCH ×2 (08:03→20:53)
[2021-01-10] MEDS: Pantoprazole 40 MG VIAL IVP SCH (08:03)
[2021-01-10] MEDS: Docusate Oral Soln 100 MG/10 ML UDC GTUBE SCH ×2 (08:04→21:03)
[2021-01-10] MEDS: levETIRAcetam 250 MG TABLET PO SCH (20:53)
[2021-01-11] MEDS: Insulin LISPRO 300 UNITS/3 ML VIAL SUBQ SCH ×6 (00:16→22:02)
[2021-01-11] MEDS: Artificial Tears SOLN 15 ML BOTTLE BOTH EYES SCH ×3 (00:17→07:32)
[2021-01-11 03:35] LABS: Basophils % 0.3 %; Eosinophils # 0.1 K/mcL (0.0-0.6); Eosinophils % 0.9 %; Hematocrit 24.8 % (37.5-50.1); Hemoglobin 7.9 g/dL (12.9-16.9); Immature Granulocytes % 0.8 % (0-4); Lymphocytes # 0.9 K/mcL (0.6-4.6); Lymphocytes % 14.2 %; Mean Corpuscular HGB Conc 31.9 g/dL (31.6-35.5); Mean Corpuscular Hemoglobin 29.9 pg (28.0-33.3); Mean Corpuscular Volume 93.9 fL (83.0-100.0); Mean Platelet Volume 10.5 fL (9.4-12.4); Monocytes # 0.9 K/mcL (0.0-1.3); Monocytes % 13.3 %; Neutrophils # 4.6 K/mcL (1.6-8.9); Platelet Count 236 K/mcL (140-400); Red Blood Count 2.64 M/mcL (4.19-5.50); Red Cell Distribution Width 17.8 % (11.5-14.5); Segmented Neutrophils % 70.5 %; White Blood Count 6.6 K/mcL (4.3-11.1)
[2021-01-11 03:48] LABS: INR 1.1; Prothrombin Time 12.6 Seconds (9.4-12.1)
[2021-01-11 03:54] LABS: BUN/Creatinine Ratio 30 (6-26); Blood Urea Nitrogen 16 mg/dL (8-23); Calcium 8.5 mg/dL (8.6-10.3); Carbon Dioxide 32 mEq/L (23-29); Chloride 98 mEq/L (98-107); Glucose 127 mg/dL (70-105); Magnesium 1.9 mg/dL (1.6-2.6); Osmolality,Calculated 285 (280-300); Phosphorous 3.5 mg/dL (2.7-4.5); Potassium 3.6 mEq/L (3.5-5.1); Sodium 136 mEq/L (136-145); eGFR For African Americans > 60 (> 60); eGFR For Non-African Americans > 60 (> 60)
[2021-01-11] MEDS: Dexmedetomidine HCl 400 MCG/100 ML MLS IVC SCH ×2 (05:58→21:59)
[2021-01-11] MEDS: Docusate Oral Soln 100 MG/10 ML UDC GTUBE SCH ×2 (07:32→22:00)
[2021-01-11] MEDS: Chlorhexidine Rinse 15 ML MOUTHWASH MM SCH ×2 (07:33→22:00)
[2021-01-11] MEDS: FentaNYL (PF) 1,000 MCG/100 ML IV.SOLN IVC SCH (07:35)
[2021-01-11] MEDS: Pantoprazole 40 MG VIAL IVP SCH (07:47)
[2021-01-11] MEDS: levETIRAcetam 250 MG TABLET PO SCH ×2 (07:52→22:00)
[2021-01-11] MEDS ORDERED: *HR* FentaNYL (PF) 100 MCG/2 ML VIAL IVP PRN (08:55)
[2021-01-11 18:18] LABS: Potassium 4.4 mEq/L (3.5-5.1)
[2021-01-11] MEDS ORDERED: Furosemide 40 MG/4 ML VIAL IVP ONE (20:47)
[2021-01-11] MEDS: Acetaminophen 325 MG TABLET PO PRN (23:31)
[2021-01-12] MEDS: Insulin LISPRO 300 UNITS/3 ML VIAL SUBQ SCH ×6 (01:38→21:17)
[2021-01-12 03:27] LABS: Basophils % 0.3 %; Eosinophils % 0.7 %; Hematocrit 22.6 % (37.5-50.1); Hemoglobin 7.4 g/dL (12.9-16.9); Immature Granulocytes % 0.8 % (0-4); Lymphocytes # 0.8 K/mcL (0.6-4.6); Lymphocytes % 13.2 %; Mean Corpuscular HGB Conc 32.7 g/dL (31.6-35.5); Mean Corpuscular Hemoglobin 30.5 pg (28.0-33.3); Mean Platelet Volume 10.4 fL (9.4-12.4); Monocytes # 0.6 K/mcL (0.0-1.3); Monocytes % 9.5 %; Neutrophils # 4.5 K/mcL (1.6-8.9); Platelet Count 237 K/mcL (140-400); Red Blood Count 2.43 M/mcL (4.19-5.50); Red Cell Distribution Width 17.5 % (11.5-14.5); Segmented Neutrophils % 75.5 %
[2021-01-12 03:34] LABS: INR 1.1; Prothrombin Time 12.6 Seconds (9.4-12.1)
[2021-01-12 03:46] LABS: BUN/Creatinine Ratio 31 (6-26); Blood Urea Nitrogen 16 mg/dL (8-23); Calcium 8.3 mg/dL (8.6-10.3); Carbon Dioxide 32 mEq/L (23-29); Chloride 97 mEq/L (98-107); Glucose 192 mg/dL (70-105); Magnesium 1.9 mg/dL (1.6-2.6); Osmolality,Calculated 284 (280-300); Phosphorous 2.3 mg/dL (2.7-4.5); Potassium 3.8 mEq/L (3.5-5.1); Sodium 134 mEq/L (136-145); eGFR For African Americans > 60 (> 60); eGFR For Non-African Americans > 60 (> 60)
[2021-01-12] MEDS: Docusate Oral Soln 100 MG/10 ML UDC GTUBE SCH (07:44)
[2021-01-12] MEDS: Pantoprazole 40 MG VIAL IVP SCH (09:11)
[2021-01-12] MEDS: Chlorhexidine Rinse 15 ML MOUTHWASH MM SCH ×2 (09:12→21:17)
[2021-01-12] MEDS: levETIRAcetam 250 MG TABLET PO SCH ×2 (09:12→21:17)
[2021-01-12] MEDS: Dexmedetomidine HCl 400 MCG/100 ML MLS IVC SCH (09:17)
[2021-01-12] MEDS: Acetaminophen 325 MG TABLET PO PRN (10:18)
[2021-01-12 16:15] LABS: Adenovirus F 40/41 PCR Not detected (Not detect); Astrovirus PCR Not detected (Not detect); Campylobacter by PCR Not detected (Not detect); Cryptosporidium by PCR Not detected (Not detect); Cyclospora cayetanensis PCR Not detected (Not detect); E. coli O157 by PCR Not detected (Not detect); Entamoeba histolytica PCR Not detected (Not detect); Enteroaggregative E.coli(EAEC) Not detected (Not detect); Enteropathogenic E.coli(EPEC) Not detected (Not detect); Enterotoxigenic E.coli (ETEC) Not detected (Not detect); Giardia lamblia PCR Not detected (Not detect); Norovirus GI/GII PCR Not detected (Not detect); Plesiomonas shigelloides PCR Not detected (Not detect); Rotavirus A PCR Not detected (Not detect); Salmonella PCR Not detected (Not detect); Sapovirus PCR Not detected (Not detect); Shig/EnteroinvasiveE coli EIEC Not detected (Not detect); Shigalike tox-prod E coli STEC Not detected (Not detect); Vibrio PCR Not detected (Not detect); Vibrio cholerae PCR Not detected (Not detect); Yersinia enterocolitica PCR Not detected (Not detect)
[2021-01-12 16:17] LABS: C.difficile Toxin A/B Gene PCR DETECTED (Not detect)
[2021-01-12 17:56] LABS: Magnesium 2.2 mg/dL (1.6-2.6); Phosphorous 3.9 mg/dL (2.7-4.5)
[2021-01-12] MEDS: Vancomycin Oral Soln 125 MG/2.5 ML UDC PO SCH ×2 (18:35→21:17)
[2021-01-12] MEDS: Apixaban 5 MG TABLET GTUBE SCH (21:17)
[2021-01-13] MEDS: Insulin LISPRO 300 UNITS/3 ML VIAL SUBQ SCH ×6 (00:31→21:13)
[2021-01-13] MEDS: Dexmedetomidine HCl 400 MCG/100 ML MLS IVC SCH (02:35)
[2021-01-13 04:58] LABS: Basophils % 0.5 %; Eosinophils # 0.1 K/mcL (0.0-0.6); Eosinophils % 1.6 %; Hematocrit 25.6 % (37.5-50.1); Hemoglobin 7.9 g/dL (12.9-16.9); Immature Granulocytes % 0.9 % (0-4); Lymphocytes % 12.8 %; Mean Corpuscular HGB Conc 30.9 g/dL (31.6-35.5); Mean Corpuscular Hemoglobin 28.7 pg (28.0-33.3); Mean Corpuscular Volume 93.1 fL (83.0-100.0); Mean Platelet Volume 10.5 fL (9.4-12.4); Monocytes # 0.9 K/mcL (0.0-1.3); Monocytes % 11.6 %; Neutrophils # 5.6 K/mcL (1.6-8.9); Platelet Count 339 K/mcL (140-400); Red Blood Count 2.75 M/mcL (4.19-5.50); Red Cell Distribution Width 17.4 % (11.5-14.5); Segmented Neutrophils % 72.6 %; White Blood Count 7.7 K/mcL (4.3-11.1)
[2021-01-13 05:03] LABS: INR 1.2; Prothrombin Time 13.7 Seconds (9.4-12.1)
[2021-01-13 05:14] LABS: BUN/Creatinine Ratio 40 (6-26); Blood Urea Nitrogen 19 mg/dL (8-23); Calcium 8.6 mg/dL (8.6-10.3); Carbon Dioxide 34 mEq/L (23-29); Chloride 97 mEq/L (98-107); Glucose 102 mg/dL (70-105); Magnesium 1.9 mg/dL (1.6-2.6); Osmolality,Calculated 284 (280-300); Phosphorous 3.7 mg/dL (2.7-4.5); Potassium 3.8 mEq/L (3.5-5.1); Sodium 136 mEq/L (136-145); eGFR For African Americans > 60 (> 60); eGFR For Non-African Americans > 60 (> 60)
[2021-01-13] MEDS ORDERED: *HR* Enoxaparin 40 MG/0.4 ML SYRINGE SQ SCH (06:00)
[2021-01-13] MEDS: Chlorhexidine Rinse 15 ML MOUTHWASH MM SCH ×2 (08:52→20:58)
[2021-01-13] MEDS: Vancomycin Oral Soln 125 MG/2.5 ML UDC PO SCH (08:52)
[2021-01-13] MEDS: Apixaban 5 MG TABLET GTUBE SCH ×2 (08:53→20:54)
[2021-01-13] MEDS: levETIRAcetam 250 MG TABLET PO SCH (08:54)
[2021-01-13] MEDS: Vancomycin Oral Soln 125 MG/2.5 ML UDC GTUBE SCH ×3 (13:38→20:54)
[2021-01-13] MEDS ORDERED: Furosemide 40 MG/4 ML VIAL IVP ONE (18:55)
[2021-01-13] MEDS ORDERED: *HR* LORazepam 2 MG/ML VIAL IVP ONE (20:39)
[2021-01-13] MEDS ORDERED: Ondansetron 4 MG/2 ML VIAL IVP PRN (20:48)
[2021-01-13] MEDS: levETIRAcetam 500 MG/5 ML UDC GTUBE SCH (20:55)
[2021-01-13] MEDS ORDERED: levETIRAcetam 250 MG in 0.9 % Sodium Chloride 100 ML IVPB ONE (21:05)
[2021-01-13] MEDS ORDERED: *HR* Metoprolol 5 MG/5 ML VIAL IVP ONE (21:05)
[2021-01-14] MEDS ORDERED: Acetaminophen IV 500 MG/50 ML BAG IVPB ONE ×2 (00:30→04:16)
[2021-01-14] MEDS: Insulin LISPRO 300 UNITS/3 ML VIAL SUBQ SCH ×6 (01:45→20:39)
[2021-01-14] MEDS ORDERED: Morphine Sulfate 2 MG/ML SYRINGE IVP ONE (02:15)
[2021-01-14] MEDS ORDERED: *HR* Metoprolol 5 MG/5 ML VIAL IVP ONE (02:17)
[2021-01-14] MEDS ORDERED: *HR* LORazepam 2 MG/ML VIAL ONE (04:37)
[2021-01-14] MEDS ORDERED: *HR* LORazepam 2 MG/ML VIAL IVP ONE (04:37)
[2021-01-14] MEDS ORDERED: *HR* LORazepam 2 MG/ML VIAL IVP PRN (04:43)
[2021-01-14] MEDS: Dexmedetomidine HCl 400 MCG/100 ML MLS IVC SCH (04:53)
[2021-01-14] MEDS: Chlorhexidine Rinse 15 ML MOUTHWASH MM SCH ×2 (08:56→20:38)
[2021-01-14] MEDS: levETIRAcetam 500 MG/5 ML UDC GTUBE SCH ×2 (08:56→20:38)
[2021-01-14] MEDS: Apixaban 5 MG TABLET GTUBE SCH ×2 (08:57→20:38)
[2021-01-14] MEDS: Furosemide 20 MG/2 ML VIAL IVP SCH ×2 (08:58→16:52)
[2021-01-14] MEDS: Vancomycin Oral Soln 125 MG/2.5 ML UDC GTUBE SCH ×4 (08:58→20:39)
[2021-01-14 10:29] LABS: Basophils % 0.4 %; Eosinophils # 0.1 K/mcL (0.0-0.6); Eosinophils % 0.5 %; Hematocrit 26.6 % (37.5-50.1); Hemoglobin 8.3 g/dL (12.9-16.9); Immature Granulocytes % 0.6 % (0-4); Lymphocytes # 0.9 K/mcL (0.6-4.6); Lymphocytes % 9.7 %; Mean Corpuscular HGB Conc 31.2 g/dL (31.6-35.5); Mean Corpuscular Hemoglobin 28.9 pg (28.0-33.3); Mean Corpuscular Volume 92.7 fL (83.0-100.0); Mean Platelet Volume 10.1 fL (9.4-12.4); Monocytes # 0.9 K/mcL (0.0-1.3); Monocytes % 9.7 %; Neutrophils # 7.5 K/mcL (1.6-8.9); Platelet Count 490 K/mcL (140-400); Red Blood Count 2.87 M/mcL (4.19-5.50); Red Cell Distribution Width 17.3 % (11.5-14.5); Segmented Neutrophils % 79.1 %; White Blood Count 9.5 K/mcL (4.3-11.1)
[2021-01-14 10:37] LABS: INR 1.4; Prothrombin Time 15.2 Seconds (9.4-12.1)
[2021-01-14 10:52] LABS: BUN/Creatinine Ratio 28 (6-26); Blood Urea Nitrogen 18 mg/dL (8-23); Calcium 8.6 mg/dL (8.6-10.3); Carbon Dioxide 33 mEq/L (23-29); Chloride 97 mEq/L (98-107); Glucose 170 mg/dL (70-105); Magnesium 1.8 mg/dL (1.6-2.6); Osmolality,Calculated 290 (280-300); Phosphorous 4.1 mg/dL (2.7-4.5); Potassium 2.7 mEq/L (3.5-5.1); Sodium 137 mEq/L (136-145); eGFR For African Americans > 60 (> 60); eGFR For Non-African Americans > 60 (> 60)
[2021-01-14] MEDS ORDERED: Vancomycin (wt based) 1,000 MG VIAL IVPB SCH (11:00)
[2021-01-14] MEDS: QUEtiapine Fumarate 25 MG TABLET PO SCH ×2 (13:37→20:40)
[2021-01-14] MEDS ORDERED: Cefepime HCl 2,000 MG in Water for inj. (sterile) 20 ML IVP SCH (16:00)
[2021-01-14] MEDS: Piperacillin/Tazobactam 3.375 GM in 0.9 % Sodium Chloride Mini Bag 100 ML IVPB SCH (16:51)
[2021-01-14 22:33] LABS: Magnesium 2.5 mg/dL (1.6-2.6); Potassium 4.8 mEq/L (3.5-5.1)
[2021-01-15] MEDS: Insulin LISPRO 300 UNITS/3 ML VIAL SUBQ SCH ×4 (00:10→12:31)
[2021-01-15 04:31] VITALS: O2SAT 100
[2021-01-15] MEDS: Dexmedetomidine HCl 400 MCG/100 ML MLS IVC SCH (04:45)
[2021-01-15 05:39] LABS: Basophils % 0.4 %; Eosinophils # 0.1 K/mcL (0.0-0.6); Eosinophils % 1.3 %; Hematocrit 23.3 % (37.5-50.1); Hemoglobin 7.4 g/dL (12.9-16.9); Immature Granulocytes % 0.9 % (0-4); Lymphocytes # 1.1 K/mcL (0.6-4.6); Lymphocytes % 11.4 %; Mean Corpuscular HGB Conc 31.8 g/dL (31.6-35.5); Mean Corpuscular Hemoglobin 29.6 pg (28.0-33.3); Mean Corpuscular Volume 93.2 fL (83.0-100.0); Mean Platelet Volume 10.1 fL (9.4-12.4); Monocytes # 0.9 K/mcL (0.0-1.3); Monocytes % 9.1 %; Neutrophils # 7.4 K/mcL (1.6-8.9); Platelet Count 556 K/mcL (140-400); Red Cell Distribution Width 17.1 % (11.5-14.5); Segmented Neutrophils % 76.9 %; White Blood Count 9.6 K/mcL (4.3-11.1)
[2021-01-15 05:45] LABS: INR 1.4; Prothrombin Time 15.5 Seconds (9.4-12.1)
[2021-01-15 06:06] LABS: BUN/Creatinine Ratio 35 (6-26); Blood Urea Nitrogen 19 mg/dL (8-23); Calcium 8.2 mg/dL (8.6-10.3); Carbon Dioxide 30 mEq/L (23-29); Chloride 99 mEq/L (98-107); Glucose 186 mg/dL (70-105); Magnesium 2.1 mg/dL (1.6-2.6); Osmolality,Calculated 293 (280-300); Phosphorous 3.6 mg/dL (2.7-4.5); Sodium 138 mEq/L (136-145); eGFR For African Americans > 60 (> 60); eGFR For Non-African Americans > 60 (> 60)
[2021-01-15] MEDS ORDERED: Potassium Chloride Elixir 20 MEQ/15 ML UDC GTUBE ONE (07:17)
[2021-01-15] MEDS: levETIRAcetam 500 MG/5 ML UDC GTUBE SCH (08:08)
[2021-01-15] MEDS: Apixaban 5 MG TABLET GTUBE SCH (08:09)
[2021-01-15] MEDS: Vancomycin Oral Soln 125 MG/2.5 ML UDC GTUBE SCH ×2 (08:09→12:31)
[2021-01-15] MEDS: Piperacillin/Tazobactam 3.375 GM in 0.9 % Sodium Chloride Mini Bag 100 ML IVPB SCH ×2 (08:10)
[2021-01-15] MEDS: QUEtiapine Fumarate 25 MG TABLET PO SCH (08:10)
[2021-01-15] MEDS: Chlorhexidine Rinse 15 ML MOUTHWASH MM SCH (08:10)
[2021-01-15 11:30] VITALS: BP 98/47; PULSE 91; TEMP 98.6
== END 2021-01-15 15:55 | DRG 4 ==
LOC: EMEROOARM 07:58 → ICNU 17:25 → SUATTDRO 17:57 → ICNU 17:57 → 2NNU 01-11 16:06
PROVIDERS: ADMIT Pediatrics; ATTEND Internal Medicine

== ENCOUNTER 2021-03-22 22:46 | Inpatient (IN) ==
[2021-03-23] MEDS ORDERED: Norepinephrine 4 MG/254 ML IV.SOLN IVC SCH (08:00)
[2021-03-23] MEDS ORDERED: Naloxone 0.4 MG/ML INJ IVP PRN ×2 (08:02→18:13)
[2021-03-23] MEDS ORDERED: Acetaminophen 325 MG TABLET PO PRN ×2 (08:02→18:13)
[2021-03-23] MEDS ORDERED: Ondansetron 4 MG/2 ML VIAL IVP PRN ×2 (08:09→18:13)
[2021-03-23] MEDS ORDERED: Albuterol 2.5 MG/3 ML NEBULIZER IH PRN ×2 (08:09→18:13)
[2021-03-23] MEDS ORDERED: Pantoprazole 40 MG VIAL IVP SCH (09:00)
[2021-03-23] MEDS ORDERED: Vancomycin (wt based) 1,000 MG VIAL IVPB SCH (09:00)
[2021-03-23 09:24] LABS: Eosinophils % 0.6 %; Lymphocytes % 8.6 %
[2021-03-23 09:26] LABS: Basophils # 0.1 K/mcL (0.0-0.2); Basophils % 0.8 %; Eosinophils # 0.1 K/mcL (0.0-0.6); Hematocrit 31.3 % (37.5-50.1); Hemoglobin 8.8 g/dL (12.9-16.9); Immature Granulocytes % 0.6 % (0-4); Lymphocytes # 0.7 K/mcL (0.6-4.6); Mean Corpuscular HGB Conc 28.1 g/dL (31.6-35.5); Mean Corpuscular Hemoglobin 28.3 pg (28.0-33.3); Mean Corpuscular Volume 100.6 fL (83.0-100.0); Mean Platelet Volume 11.6 fL (9.4-12.4); Monocytes # 0.8 K/mcL (0.0-1.3); Monocytes % 9.3 %; Neutrophils # 6.8 K/mcL (1.6-8.9); Platelet Count 343 K/mcL (140-400); Red Blood Count 3.11 M/mcL (4.19-5.50); Red Cell Distribution Width 15.5 % (11.5-14.5); Segmented Neutrophils % 80.1 %; White Blood Count 8.5 K/mcL (4.3-11.1)
[2021-03-23 09:35] LABS: INR 1.2; Prothrombin Time 13.7 Seconds (9.4-12.1)
[2021-03-23 09:47] LABS: Platelet Estimate Normal (Normal)
[2021-03-23 10:04] LABS: Alanine Aminotransferase 162 Units/L (7-52); Albumin 2.9 g/dL (3.5-5.7); Albumin/Globulin Ratio 0.7 (1.1-2.2); Alkaline Phosphatase 95 Units/L (34-104); Aspartate Amino Transferase 95 Units/L (13-39); BUN/Creatinine Ratio 53 (6-26); Bilirubin,Indirect 0.5 mg/dL (0.0-1.0); Bilirubin,Total 0.5 mg/dL (0.3-1.0); Blood Urea Nitrogen 51 mg/dL (8-23); Calcium 8.3 mg/dL (8.6-10.3); Carbon Dioxide 25 mEq/L (23-29); Chloride 120 mEq/L (98-107); Globulin 4.2 g/dL (2.4-3.5); Glucose 355 mg/dL (70-105); Magnesium 2.2 mg/dL (1.6-2.6); Osmolality,Calculated 324 (280-300); Potassium 3.8 mEq/L (3.5-5.1); Sodium 143 mEq/L (136-145); Total Protein 7.1 g/dL (6.4-8.9); eGFR For African Americans > 60 (> 60); eGFR For Non-African Americans > 60 (> 60)
[2021-03-23] MEDS: Ipratropium/Albuterol Neb 3 ML IH SCH ×4 (11:27→23:43)
[2021-03-23 12:58] LABS: Bilirubin,Urine Negative (Negative); Blood,Urine Small (Negative); Budding Yeast,Urine Few per hpf (None Seen); Clarity,Urine Turbid (Clear); Color,Urine Light-Yellow (Yellow); Glucose,Urine (UA) 500 mg/dL (Normal); Ketones,Urine Negative (Negative); Leukocyte Esterase,Urine Large (Negative); Nitrite,Urine Negative (Negative); PH,Urine 5.5 pH Units (5.0-8.0); Protein,Urine 50 mg/dL (Neg-Trace); RBC,Urine 30-50 per hpf (0-3); Specific Gravity,Urine 1.016 (1.010-1.025); Squamous Epithelial Cell,Urine Few per hpf (None-Few); Urobilinogen,Urine Normal (Normal); WBC,Urine TNTC per hpf (0-3)
[2021-03-23] MEDS ORDERED: *HR* Dextrose 50 % in Water (Syg) 50 ML SYRINGE IVP PRN ×2 (13:48→18:13)
[2021-03-23] MEDS ORDERED: Dextrose Gel 15 GM/37.5 ML TUBE PO PRN ×4 (13:48→18:13)
[2021-03-23] MEDS ORDERED: D5% in Water 1,000 ML IVC PRN ×2 (13:48→18:13)
[2021-03-23] MEDS ORDERED: *HR* Propofol 200 MG/20 ML VIAL IVP ONE (14:36)
[2021-03-23] MEDS ORDERED: Cefepime HCl 2,000 MG in 0.9 % Sodium Chloride Mini Bag 100 ML IVPB SCH (16:00)
[2021-03-23 16:59] LABS: Source of Body Fluid RML BAL
[2021-03-23] MEDS ORDERED: Insulin LISPRO 300 UNITS/3 ML VIAL SUBQ SCH (18:00)
[2021-03-23] MEDS ORDERED: *HR* Heparin 5,000 UNIT/ML VIAL SQ SCH (18:00)
[2021-03-23 20:25] LABS: Appearance of Body Fluid Hazy (Clear); Volume of Body Fluid 11 mL
[2021-03-24 00:38] LABS: Acinetobacter baumannii by PCR Not Detected (Not Detect); Enterobacter cloacae Cmplx PCR Not Detected (Not Detect); Enterobacteriaceae by PCR Not Detected (Not Detect); Enterococcus by PCR DETECTED (Not Detect); Escherichia coli by PCR Not Detected (Not Detect); Klebsiella oxytoca by PCR Not Detected (Not Detect); Klebsiella pneumoniae by PCR Not Detected (Not Detect); Proteus by PCR Not Detected (Not Detect); Pseudomonas aeruginosa by PCR Not Detected (Not Detect); Serratia marcescens by PCR Not Detected (Not Detect); Staphylococcus aureus by PCR Not Detected (Not Detect); Staphylococcus by PCR Not Detected (Not Detect); Streptococcus agalactiae(B)PCR Not Detected (Not Detect); Streptococcus by PCR Not Detected (Not Detect); Streptococcus pneumoniae PCR Not Detected (Not Detect); Streptococcus pyogenes (A) PCR Not Detected (Not Detect); vanA/B Vancomycin-Resist Genes Not Detected (Not Detect)
[2021-03-24 00:39] LABS: Candida albicans by PCR Not Detected (Not Detect); Candida glabrata by PCR Not Detected (Not Detect); Candida krusei by PCR Not Detected (Not Detect); Candida parapsilosis by PCR Not Detected (Not Detect); Candida tropicalis by PCR Not Detected (Not Detect)
[2021-03-24] MEDS: Insulin LISPRO 300 UNITS/3 ML VIAL SUBQ SCH ×5 (01:25→23:45)
[2021-03-24] MEDS: Cefepime HCl 2,000 MG in 0.9 % Sodium Chloride Mini Bag 100 ML IVPB SCH ×2 (01:29→09:25)
[2021-03-24] MEDS: Ipratropium/Albuterol Neb 3 ML IH SCH ×6 (03:25→23:10)
[2021-03-24 05:14] LABS: Basophils # 0.1 K/mcL (0.0-0.2); Basophils % 0.9 %; Eosinophils # 0.1 K/mcL (0.0-0.6); Eosinophils % 1.5 %; Hematocrit 29.5 % (37.5-50.1); Hemoglobin 8.7 g/dL (12.9-16.9); Immature Granulocytes % 0.6 % (0-4); Lymphocytes % 14.8 %; Mean Corpuscular HGB Conc 29.5 g/dL (31.6-35.5); Mean Corpuscular Hemoglobin 28.9 pg (28.0-33.3); Mean Platelet Volume 11.3 fL (9.4-12.4); Monocytes # 0.7 K/mcL (0.0-1.3); Monocytes % 9.8 %; Platelet Count 355 K/mcL (140-400); Red Blood Count 3.01 M/mcL (4.19-5.50); Segmented Neutrophils % 72.4 %; White Blood Count 6.8 K/mcL (4.3-11.1)
[2021-03-24] MEDS: *HR* Heparin 5,000 UNIT/ML VIAL SQ SCH ×2 (05:39→16:42)
[2021-03-24 05:48] LABS: Alanine Aminotransferase 108 Units/L (7-52); Albumin 2.9 g/dL (3.5-5.7); Albumin/Globulin Ratio 0.7 (1.1-2.2); Alkaline Phosphatase 74 Units/L (34-104); Aspartate Amino Transferase 41 Units/L (13-39); BUN/Creatinine Ratio 43 (6-26); Bilirubin,Direct 0.1 mg/dL (0.0-0.2); Bilirubin,Indirect 0.3 mg/dL (0.0-1.0); Bilirubin,Total 0.4 mg/dL (0.3-1.0); Blood Urea Nitrogen 28 mg/dL (8-23); Calcium 8.8 mg/dL (8.6-10.3); Carbon Dioxide 24 mEq/L (23-29); Chloride 121 mEq/L (98-107); Globulin 4.2 g/dL (2.4-3.5); Glucose 127 mg/dL (70-105); Magnesium 1.8 mg/dL (1.6-2.6); Osmolality,Calculated 321 (280-300); Phosphorous 3.2 mg/dL (2.7-4.5); Potassium 3.3 mEq/L (3.5-5.1); Sodium 152 mEq/L (136-145); Total Protein 7.1 g/dL (6.4-8.9); eGFR For African Americans > 60 (> 60); eGFR For Non-African Americans > 60 (> 60)
[2021-03-24] MEDS ORDERED: D5% in Water 1,000 ML IVC SCH (06:45)
[2021-03-24] MEDS: Pantoprazole 40 MG VIAL IVP SCH (09:26)
[2021-03-24 11:35] LABS: BUN/Creatinine Ratio 38 (6-26); Blood Urea Nitrogen 25 mg/dL (8-23); Calcium 8.5 mg/dL (8.6-10.3); Carbon Dioxide 22 mEq/L (23-29); Chloride 122 mEq/L (98-107); Glucose 160 mg/dL (70-105); Osmolality,Calculated 310 (280-300); Potassium 3.7 mEq/L (3.5-5.1); Sodium 146 mEq/L (136-145); eGFR For African Americans > 60 (> 60); eGFR For Non-African Americans > 60 (> 60)
[2021-03-24] MEDS: Piperacillin/Tazobactam 3.375 GM in 0.9 % Sodium Chloride Mini Bag 100 ML IVPB SCH ×2 (16:41→23:22)
[2021-03-25 03:14] LABS: Immature Granulocytes % 0.6 % (0-4); Segmented Neutrophils % 66.8 %
[2021-03-25 03:15] LABS: Basophils % 0.6 %; Eosinophils # 0.1 K/mcL (0.0-0.6); Eosinophils % 1.9 %; Hematocrit 28.1 % (37.5-50.1); Hemoglobin 8.3 g/dL (12.9-16.9); Lymphocytes # 1.3 K/mcL (0.6-4.6); Lymphocytes % 18.4 %; Mean Corpuscular HGB Conc 29.5 g/dL (31.6-35.5); Mean Corpuscular Hemoglobin 28.8 pg (28.0-33.3); Mean Corpuscular Volume 97.6 fL (83.0-100.0); Monocytes # 0.8 K/mcL (0.0-1.3); Monocytes % 11.7 %; Neutrophils # 4.6 K/mcL (1.6-8.9); Platelet Count 359 K/mcL (140-400); Red Blood Count 2.88 M/mcL (4.19-5.50); Red Cell Distribution Width 14.7 % (11.5-14.5); White Blood Count 6.9 K/mcL (4.3-11.1)
[2021-03-25 03:32] LABS: Alanine Aminotransferase 74 Units/L (7-52); Albumin 2.7 g/dL (3.5-5.7); Albumin/Globulin Ratio 0.7 (1.1-2.2); Alkaline Phosphatase 72 Units/L (34-104); Aspartate Amino Transferase 23 Units/L (13-39); BUN/Creatinine Ratio 28 (6-26); Bilirubin,Direct 0.1 mg/dL (0.0-0.2); Bilirubin,Indirect 0.1 mg/dL (0.0-1.0); Bilirubin,Total 0.2 mg/dL (0.3-1.0); Blood Urea Nitrogen 20 mg/dL (8-23); Calcium 8.6 mg/dL (8.6-10.3); Carbon Dioxide 27 mEq/L (23-29); Chloride 121 mEq/L (98-107); Globulin 3.9 g/dL (2.4-3.5); Glucose 172 mg/dL (70-105); Magnesium 1.8 mg/dL (1.6-2.6); Osmolality,Calculated 307 (280-300); Phosphorous 3.2 mg/dL (2.7-4.5); Potassium 3.4 mEq/L (3.5-5.1); Sodium 145 mEq/L (136-145); Total Protein 6.6 g/dL (6.4-8.9); eGFR For African Americans > 60 (> 60); eGFR For Non-African Americans > 60 (> 60)
[2021-03-25] MEDS: Ipratropium/Albuterol Neb 3 ML IH SCH ×6 (04:37→23:34)
[2021-03-25] MEDS: *HR* Heparin 5,000 UNIT/ML VIAL SQ SCH ×2 (05:19→18:32)
[2021-03-25] MEDS: Insulin LISPRO 300 UNITS/3 ML VIAL SUBQ SCH ×3 (05:20→18:33)
[2021-03-25] MEDS ORDERED: Ferrous Sulfate Oral Soln 300 MG/5 ML UDC GTUBE SCH (09:00)
[2021-03-25] MEDS: Piperacillin/Tazobactam 3.375 GM in 0.9 % Sodium Chloride Mini Bag 100 ML IVPB SCH ×2 (11:04→18:32)
[2021-03-25] MEDS: Potassium Chloride Elixir 20 MEQ/15 ML UDC GTUBE SCH (11:05)
[2021-03-25] MEDS: Pantoprazole 40 MG VIAL IVP SCH (11:05)
[2021-03-25] MEDS: Lactobacillus 1 EACH CAP.SPRINK GTUBE SCH (11:23)
[2021-03-25] MEDS: Ferrous Sulfate Oral Soln 300 MG/5 ML UDC GTUBE SCH (13:11)
[2021-03-25] MEDS ORDERED: Vancomycin 1,250 MG/262.5 ML IV.SOLN IVPB SCH (15:00)
[2021-03-25] MEDS ORDERED: Perflutren Lipid Microsphere 1.3 ML in 0.9 % Sodium Chloride 8.7 ML IVP PRN (16:44)
[2021-03-26] MEDS: Piperacillin/Tazobactam 3.375 GM in 0.9 % Sodium Chloride Mini Bag 100 ML IVPB SCH ×3 (00:05→16:13)
[2021-03-26] MEDS: Insulin LISPRO 300 UNITS/3 ML VIAL SUBQ SCH ×4 (00:54→17:43)
[2021-03-26] MEDS: Ipratropium/Albuterol Neb 3 ML IH SCH ×6 (04:01→23:40)
[2021-03-26 04:09] LABS: Basophils % 0.4 %; Eosinophils # 0.1 K/mcL (0.0-0.6); Eosinophils % 1.2 %; Hematocrit 26.9 % (37.5-50.1); Immature Granulocytes % 0.8 % (0-4); Lymphocytes # 1.5 K/mcL (0.6-4.6); Lymphocytes % 20.9 %; Mean Corpuscular HGB Conc 29.7 g/dL (31.6-35.5); Mean Corpuscular Volume 97.5 fL (83.0-100.0); Mean Platelet Volume 11.5 fL (9.4-12.4); Monocytes # 0.6 K/mcL (0.0-1.3); Monocytes % 8.8 %; Neutrophils # 4.9 K/mcL (1.6-8.9); Platelet Count 365 K/mcL (140-400); Red Blood Count 2.76 M/mcL (4.19-5.50); Red Cell Distribution Width 14.7 % (11.5-14.5); Segmented Neutrophils % 67.9 %; White Blood Count 7.2 K/mcL (4.3-11.1)
[2021-03-26 04:29] LABS: Alanine Aminotransferase 53 Units/L (7-52); Albumin 2.7 g/dL (3.5-5.7); Albumin/Globulin Ratio 0.7 (1.1-2.2); Alkaline Phosphatase 67 Units/L (34-104); Aspartate Amino Transferase 17 Units/L (13-39); BUN/Creatinine Ratio 39 (6-26); Bilirubin,Indirect 0.2 mg/dL (0.0-1.0); Bilirubin,Total 0.2 mg/dL (0.3-1.0); Blood Urea Nitrogen 26 mg/dL (8-23); Calcium 8.3 mg/dL (8.6-10.3); Carbon Dioxide 27 mEq/L (23-29); Chloride 117 mEq/L (98-107); Globulin 3.9 g/dL (2.4-3.5); Glucose 156 mg/dL (70-105); Magnesium 1.6 mg/dL (1.6-2.6); Osmolality,Calculated 314 (280-300); Phosphorous 3.9 mg/dL (2.7-4.5); Potassium 4.2 mEq/L (3.5-5.1); Sodium 148 mEq/L (136-145); Total Protein 6.6 g/dL (6.4-8.9); eGFR For African Americans > 60 (> 60); eGFR For Non-African Americans > 60 (> 60)
[2021-03-26] MEDS: *HR* Heparin 5,000 UNIT/ML VIAL SQ SCH ×2 (05:16→17:43)
[2021-03-26] MEDS: Ferrous Sulfate Oral Soln 300 MG/5 ML UDC GTUBE SCH (09:39)
[2021-03-26] MEDS: Potassium Chloride Elixir 20 MEQ/15 ML UDC GTUBE SCH (09:39)
[2021-03-26] MEDS: Lactobacillus 1 EACH CAP.SPRINK GTUBE SCH (09:39)
[2021-03-26] MEDS: Pantoprazole 40 MG VIAL IVP SCH (09:39)
[2021-03-27] MEDS: Piperacillin/Tazobactam 3.375 GM in 0.9 % Sodium Chloride Mini Bag 100 ML IVPB SCH ×3 (00:45→16:13)
[2021-03-27] MEDS: Insulin LISPRO 300 UNITS/3 ML VIAL SUBQ SCH ×4 (00:45→17:46)
[2021-03-27] MEDS: Ipratropium/Albuterol Neb 3 ML IH SCH ×6 (04:00→23:35)
[2021-03-27 05:25] LABS: Eosinophils % 1.3 %; Hemoglobin 8.5 g/dL (12.9-16.9); Mean Platelet Volume 11.2 fL (9.4-12.4); Red Cell Distribution Width 14.8 % (11.5-14.5)
[2021-03-27 05:27] LABS: Basophils # 0.1 K/mcL (0.0-0.2); Basophils % 0.7 %; Eosinophils # 0.1 K/mcL (0.0-0.6); Hematocrit 28.6 % (37.5-50.1); Immature Granulocytes % 1.3 % (0-4); Lymphocytes # 1.7 K/mcL (0.6-4.6); Lymphocytes % 15.9 %; Mean Corpuscular HGB Conc 29.7 g/dL (31.6-35.5); Mean Corpuscular Hemoglobin 28.7 pg (28.0-33.3); Mean Corpuscular Volume 96.6 fL (83.0-100.0); Monocytes # 0.7 K/mcL (0.0-1.3); Monocytes % 6.8 %; Platelet Count 410 K/mcL (140-400); Red Blood Count 2.96 M/mcL (4.19-5.50); White Blood Count 10.5 K/mcL (4.3-11.1)
[2021-03-27 05:31] LABS: Neutrophils # 7.8 K/mcL (1.6-8.9)
[2021-03-27 05:46] LABS: BUN/Creatinine Ratio 33 (6-26); Blood Urea Nitrogen 21 mg/dL (8-23); Calcium 8.6 mg/dL (8.6-10.3); Carbon Dioxide 30 mEq/L (23-29); Chloride 111 mEq/L (98-107); Glucose 169 mg/dL (70-105); Magnesium 1.6 mg/dL (1.6-2.6); Osmolality,Calculated 303 (280-300); Phosphorous 3.4 mg/dL (2.7-4.5); Sodium 143 mEq/L (136-145); eGFR For African Americans > 60 (> 60); eGFR For Non-African Americans > 60 (> 60)
[2021-03-27] MEDS: *HR* Heparin 5,000 UNIT/ML VIAL SQ SCH ×2 (06:03→17:46)
[2021-03-27] MEDS: Ferrous Sulfate Oral Soln 300 MG/5 ML UDC GTUBE SCH (07:59)
[2021-03-27] MEDS: Lactobacillus 1 EACH CAP.SPRINK GTUBE SCH (07:59)
[2021-03-27] MEDS: Potassium Chloride Elixir 20 MEQ/15 ML UDC GTUBE SCH (07:59)
[2021-03-27] MEDS: Pantoprazole 40 MG VIAL IVP SCH (08:02)
[2021-03-28] MEDS: Piperacillin/Tazobactam 3.375 GM in 0.9 % Sodium Chloride Mini Bag 100 ML IVPB SCH ×3 (01:04→17:14)
[2021-03-28] MEDS: Insulin LISPRO 300 UNITS/3 ML VIAL SUBQ SCH ×4 (01:05→18:10)
[2021-03-28 01:57] LABS: Basophils # 0.1 K/mcL (0.0-0.2); Basophils % 0.6 %; Eosinophils # 0.2 K/mcL (0.0-0.6); Eosinophils % 1.4 %; Hematocrit 28.8 % (37.5-50.1); Hemoglobin 8.7 g/dL (12.9-16.9); Immature Granulocytes % 1.1 % (0-4); Lymphocytes % 18.9 %; Mean Corpuscular HGB Conc 30.2 g/dL (31.6-35.5); Mean Corpuscular Hemoglobin 28.7 pg (28.0-33.3); Mean Platelet Volume 11.2 fL (9.4-12.4); Monocytes # 0.7 K/mcL (0.0-1.3); Monocytes % 6.6 %; Neutrophils # 7.7 K/mcL (1.6-8.9); Platelet Count 450 K/mcL (140-400); Red Blood Count 3.03 M/mcL (4.19-5.50); Red Cell Distribution Width 14.8 % (11.5-14.5); Segmented Neutrophils % 71.4 %; White Blood Count 10.8 K/mcL (4.3-11.1)
[2021-03-28 02:07] LABS: BUN/Creatinine Ratio 36 (6-26); Blood Urea Nitrogen 21 mg/dL (8-23); Calcium 8.7 mg/dL (8.6-10.3); Carbon Dioxide 29 mEq/L (23-29); Chloride 107 mEq/L (98-107); Glucose 145 mg/dL (70-105); Magnesium 1.6 mg/dL (1.6-2.6); Osmolality,Calculated 296 (280-300); Phosphorous 3.1 mg/dL (2.7-4.5); Potassium 3.8 mEq/L (3.5-5.1); Sodium 140 mEq/L (136-145); eGFR For African Americans > 60 (> 60); eGFR For Non-African Americans > 60 (> 60)
[2021-03-28] MEDS: Ipratropium/Albuterol Neb 3 ML IH SCH ×6 (03:54→23:35)
[2021-03-28] MEDS: *HR* Heparin 5,000 UNIT/ML VIAL SQ SCH ×2 (05:46→17:14)
[2021-03-28] MEDS: Lactobacillus 1 EACH CAP.SPRINK GTUBE SCH (10:02)
[2021-03-28] MEDS: Potassium Chloride Elixir 20 MEQ/15 ML UDC GTUBE SCH (10:02)
[2021-03-28] MEDS: Ferrous Sulfate Oral Soln 300 MG/5 ML UDC GTUBE SCH (10:03)
[2021-03-29] MEDS: Insulin LISPRO 300 UNITS/3 ML VIAL SUBQ SCH ×4 (00:07→18:31)
[2021-03-29] MEDS: Piperacillin/Tazobactam 3.375 GM in 0.9 % Sodium Chloride Mini Bag 100 ML IVPB SCH ×3 (00:08→16:03)
[2021-03-29] MEDS: Ipratropium/Albuterol Neb 3 ML IH SCH ×6 (03:43→23:02)
[2021-03-29 05:06] LABS: Basophils # 0.1 K/mcL (0.0-0.2); Basophils % 0.6 %; Eosinophils # 0.1 K/mcL (0.0-0.6); Eosinophils % 1.3 %; Hematocrit 29.2 % (37.5-50.1); Hemoglobin 8.7 g/dL (12.9-16.9); Immature Granulocytes % 1.1 % (0-4); Lymphocytes # 1.5 K/mcL (0.6-4.6); Lymphocytes % 14.8 %; Mean Corpuscular HGB Conc 29.8 g/dL (31.6-35.5); Mean Corpuscular Hemoglobin 28.2 pg (28.0-33.3); Mean Corpuscular Volume 94.5 fL (83.0-100.0); Mean Platelet Volume 10.6 fL (9.4-12.4); Monocytes # 0.7 K/mcL (0.0-1.3); Monocytes % 6.9 %; Neutrophils # 7.6 K/mcL (1.6-8.9); Platelet Count 452 K/mcL (140-400); Red Blood Count 3.09 M/mcL (4.19-5.50); Red Cell Distribution Width 15.4 % (11.5-14.5); Segmented Neutrophils % 75.3 %; White Blood Count 10.1 K/mcL (4.3-11.1)
[2021-03-29 05:27] LABS: BUN/Creatinine Ratio 28 (6-26); Blood Urea Nitrogen 20 mg/dL (8-23); Calcium 8.7 mg/dL (8.6-10.3); Carbon Dioxide 30 mEq/L (23-29); Chloride 105 mEq/L (98-107); Glucose 290 mg/dL (70-105); Magnesium 1.7 mg/dL (1.6-2.6); Osmolality,Calculated 293 (280-300); Phosphorous 3.4 mg/dL (2.7-4.5); Potassium 4.1 mEq/L (3.5-5.1); Sodium 135 mEq/L (136-145); eGFR For African Americans > 60 (> 60); eGFR For Non-African Americans > 60 (> 60)
[2021-03-29] MEDS: *HR* Heparin 5,000 UNIT/ML VIAL SQ SCH ×2 (06:03→18:31)
[2021-03-29] MEDS: Lactobacillus 1 EACH CAP.SPRINK GTUBE SCH (09:18)
[2021-03-29] MEDS: Ferrous Sulfate Oral Soln 300 MG/5 ML UDC GTUBE SCH (09:19)
[2021-03-29] MEDS: Potassium Chloride Elixir 20 MEQ/15 ML UDC GTUBE SCH (09:19)
[2021-03-30] MEDS: Piperacillin/Tazobactam 3.375 GM in 0.9 % Sodium Chloride Mini Bag 100 ML IVPB SCH ×3 (01:22→17:27)
[2021-03-30] MEDS: Insulin LISPRO 300 UNITS/3 ML VIAL SUBQ SCH ×4 (01:22→17:28)
[2021-03-30] MEDS: Ipratropium/Albuterol Neb 3 ML IH SCH ×6 (03:32→23:16)
[2021-03-30] MEDS ORDERED: 0.9 % Sodium Chloride 1,000 ML IV ONE (04:58)
[2021-03-30] MEDS: *HR* Heparin 5,000 UNIT/ML VIAL SQ SCH ×2 (05:23→17:27)
[2021-03-30] MEDS ORDERED: *HR* Metoprolol 5 MG/5 ML VIAL IVP ONE (05:48)
[2021-03-30 07:19] LABS: Basophils # 0.1 K/mcL (0.0-0.2); Basophils % 0.4 %; Eosinophils # 0.1 K/mcL (0.0-0.6); Eosinophils % 0.7 %; Hematocrit 31.1 % (37.5-50.1); Hemoglobin 9.5 g/dL (12.9-16.9); Immature Granulocytes % 0.8 % (0-4); Lymphocytes # 2.1 K/mcL (0.6-4.6); Lymphocytes % 12.2 %; Mean Corpuscular HGB Conc 30.5 g/dL (31.6-35.5); Mean Corpuscular Hemoglobin 28.2 pg (28.0-33.3); Mean Corpuscular Volume 92.3 fL (83.0-100.0); Mean Platelet Volume 11.6 fL (9.4-12.4); Monocytes % 5.9 %; Nucleated Red Blood Cells 0.2 /100 WBC (0); Platelet Count 408 K/mcL (140-400); Red Blood Count 3.37 M/mcL (4.19-5.50); Red Cell Distribution Width 15.7 % (11.5-14.5)
[2021-03-30 07:19] LABS: BUN/Creatinine Ratio 27 (6-26); Blood Urea Nitrogen 19 mg/dL (8-23); Calcium 8.9 mg/dL (8.6-10.3); Carbon Dioxide 25 mEq/L (23-29); Chloride 102 mEq/L (98-107); Glucose 258 mg/dL (70-105); Magnesium 1.7 mg/dL (1.6-2.6); Osmolality,Calculated 293 (280-300); Phosphorous 2.8 mg/dL (2.7-4.5); Potassium 4.7 mEq/L (3.5-5.1); Sodium 136 mEq/L (136-145); eGFR For African Americans > 60 (> 60); eGFR For Non-African Americans > 60 (> 60)
[2021-03-30 07:26] LABS: Neutrophils # 13.4 K/mcL (1.6-8.9); White Blood Count 16.8 K/mcL (4.3-11.1)
[2021-03-30] MEDS: Potassium Chloride Elixir 20 MEQ/15 ML UDC GTUBE SCH (08:24)
[2021-03-30] MEDS: Lactobacillus 1 EACH CAP.SPRINK GTUBE SCH (08:24)
[2021-03-30] MEDS: Ferrous Sulfate Oral Soln 300 MG/5 ML UDC GTUBE SCH (12:13)
[2021-03-31] MEDS: Piperacillin/Tazobactam 3.375 GM in 0.9 % Sodium Chloride Mini Bag 100 ML IVPB SCH ×2 (00:55→10:11)
[2021-03-31] MEDS: Insulin LISPRO 300 UNITS/3 ML VIAL SUBQ SCH ×3 (01:17→12:52)
[2021-03-31] MEDS: Ipratropium/Albuterol Neb 3 ML IH SCH ×4 (03:15→16:13)
[2021-03-31] MEDS: *HR* Heparin 5,000 UNIT/ML VIAL SQ SCH (05:58)
[2021-03-31 08:19] VITALS: TEMP 98.4
[2021-03-31] MEDS: Potassium Chloride Elixir 20 MEQ/15 ML UDC GTUBE SCH (10:15)
[2021-03-31] MEDS: Ferrous Sulfate Oral Soln 300 MG/5 ML UDC GTUBE SCH (10:15)
[2021-03-31] MEDS: Lactobacillus 1 EACH CAP.SPRINK GTUBE SCH (10:16)
[2021-03-31 12:29] LABS: Adenovirus Not Detected (Not Detect); Bordetella Pertussis Not Detected (Not Detect); Chlamydophila pneumoniae Not Detected (Not Detect); Coronavirus 229E Not Detected (Not Detect); Coronavirus HKU1 Not Detected (Not Detect); Coronavirus NL63 Not Detected (Not Detect); Coronavirus OC43 Not Detected (Not Detect); Human Metapneumovirus Not Detected (Not Detect); Human Rhinovirus/Enterovirus Not Detected (Not Detect); Influenza A Subtype 2009 H1 Not Detected (Not Detect); Influenza B Not Detected (Not Detect); Mycoplasma pneumoniae Not Detected (Not Detect); Parainfluenza Virus 1 Not Detected (Not Detect); Parainfluenza Virus 2 Not Detected (Not Detect); Parainfluenza Virus 3 Not Detected (Not Detect); Parainfluenza Virus 4 Not Detected (Not Detect); Respiratory Syncytial Virus Not Detected (Not Detect); SARS-CoV-2 Not Detected (Not Detect)
[2021-03-31 14:07] VITALS: BP 101/69; PULSE 122
[2021-03-31 15:42] LABS: Eosinophils % 0.6 %; Red Cell Distribution Width 15.9 % (11.5-14.5)
[2021-03-31 15:44] LABS: Basophils # 0.1 K/mcL (0.0-0.2); Basophils % 0.5 %; Eosinophils # 0.1 K/mcL (0.0-0.6); Immature Granulocytes % 0.7 % (0-4); Immature Platelets 3.2 % (1.1-6.1); Lymphocytes # 1.7 K/mcL (0.6-4.6); Lymphocytes % 10.8 %; Mean Corpuscular Hemoglobin 28.2 pg (28.0-33.3); Mean Platelet Volume 10.9 fL (9.4-12.4); Monocytes % 6.2 %; Neutrophils # 12.5 K/mcL (1.6-8.9); Platelet Count 347 K/mcL (140-400); Red Blood Count 3.19 M/mcL (4.19-5.50); Segmented Neutrophils % 81.2 %; White Blood Count 15.4 K/mcL (4.3-11.1)
[2021-03-31 15:56] LABS: BUN/Creatinine Ratio 26 (6-26); Blood Urea Nitrogen 19 mg/dL (8-23); Carbon Dioxide 27 mEq/L (23-29); Chloride 104 mEq/L (98-107); Glucose 177 mg/dL (70-105); Magnesium 1.9 mg/dL (1.6-2.6); Osmolality,Calculated 289 (280-300); Phosphorous 3.2 mg/dL (2.7-4.5); Potassium 5.4 mEq/L (3.5-5.1); Sodium 136 mEq/L (136-145); eGFR For African Americans > 60 (> 60); eGFR For Non-African Americans > 60 (> 60)
[2021-03-31 16:32] LABS: Platelet Clumps Few (Not Present)
[2021-03-31 18:10] VITALS: O2SAT 97
== END 2021-03-31 16:40 | DRG 466 ==
LOC: 2NNU → SUATTDRO 03-23 08:03 → 3BNU 03-27 11:51
PROVIDERS: ADMIT Internal Medicine; ATTEND Registered Nurse

== ENCOUNTER 2021-04-08 18:42 | Inpatient (IN) ==
[2021-04-08 21:11] LABS: Basophils # 0.1 K/mcL (0.0-0.2); Eosinophils # 0.1 K/mcL (0.0-0.6); Hematocrit 38.6 % (37.5-50.1); Immature Granulocytes % 0.6 % (0-4); Lymphocytes # 1.7 K/mcL (0.6-4.6); Mean Corpuscular HGB Conc 31.1 g/dL (31.6-35.5); Mean Corpuscular Hemoglobin 28.6 pg (28.0-33.3); Mean Corpuscular Volume 91.9 fL (83.0-100.0); Monocytes # 0.9 K/mcL (0.0-1.3); Monocytes % 6.4 %; Neutrophils # 10.9 K/mcL (1.6-8.9); Platelet Count 502 K/mcL (140-400); Red Cell Distribution Width 15.4 % (11.5-14.5); White Blood Count 13.8 K/mcL (4.3-11.1)
[2021-04-08] MEDS: Calcium Gluconate 1gm/50mL 1 GM/50 ML BAG IVPB PRN ×2 (21:28→22:03)
[2021-04-08 21:41] LABS: Potassium 7.2 mEq/L (3.5-5.1)
[2021-04-08] MEDS ORDERED: Insulin Human Regular 10 UNIT in 0.9 % Sodium Chloride 10 ML IV ONE (21:47)
[2021-04-08 21:52] LABS: Alanine Aminotransferase 72 Units/L (7-52); Albumin 3.9 g/dL (3.5-5.7); Albumin/Globulin Ratio 0.7 (1.1-2.2); Alkaline Phosphatase 104 Units/L (34-104); Aspartate Amino Transferase 54 Units/L (13-39); BUN/Creatinine Ratio 54 (6-26); Bilirubin,Indirect 0.3 mg/dL (0.0-1.0); Bilirubin,Total 0.3 mg/dL (0.3-1.0); Blood Urea Nitrogen 60 mg/dL (8-23); Calcium 10.5 mg/dL (8.6-10.3); Carbon Dioxide 28 mEq/L (23-29); Chloride 96 mEq/L (98-107); Globulin 5.7 g/dL (2.4-3.5); Glucose 206 mg/dL (70-105); Osmolality,Calculated 297 (280-300); Sodium 132 mEq/L (136-145); Total Protein 9.6 g/dL (6.4-8.9); eGFR For African Americans > 60 (> 60); eGFR For Non-African Americans > 60 (> 60)
[2021-04-08] MEDS ORDERED: *HR* Dextrose 50 % in Water (Syg) 50 ML SYRINGE IVP ONE (21:52)
[2021-04-08] MEDS ORDERED: 0.9 % Sodium Chloride 1,000 ML IVC ONE (22:19)
[2021-04-08 23:10] LABS: Influenza A PCR Negative (Negative); Influenza B PCR Negative (Negative); Resp. Syncytial Virus PCR Negative (Negative)
[2021-04-08 23:12] LABS: SARS-CoV-2 by PCR (In House) Negative (Negative)
[2021-04-08] MEDS ORDERED: Ondansetron 4 MG/2 ML VIAL IVP PRN (23:52)
[2021-04-08] MEDS ORDERED: Naloxone 0.4 MG/ML INJ IVP PRN (23:52)
[2021-04-09] MEDS ORDERED: *HR* Dextrose 50 % in Water (Syg) 50 ML SYRINGE IVP PRN (01:35)
[2021-04-09] MEDS ORDERED: Dextrose Gel 15 GM/37.5 ML TUBE PO PRN ×2 (01:35)
[2021-04-09] MEDS ORDERED: D5% in Water 1,000 ML IVC PRN (01:35)
[2021-04-09 01:46] LABS: Basophils # 0.1 K/mcL (0.0-0.2); Basophils % 1.1 %; Eosinophils # 0.2 K/mcL (0.0-0.6); Eosinophils % 1.4 %; Hemoglobin 10.9 g/dL (12.9-16.9); Immature Granulocytes % 0.5 % (0-4); Lymphocytes # 1.4 K/mcL (0.6-4.6); Mean Corpuscular HGB Conc 30.3 g/dL (31.6-35.5); Mean Corpuscular Hemoglobin 28.2 pg (28.0-33.3); Mean Platelet Volume 11.3 fL (9.4-12.4); Monocytes # 0.8 K/mcL (0.0-1.3); Monocytes % 7.3 %; Neutrophils # 8.5 K/mcL (1.6-8.9); Platelet Count 408 K/mcL (140-400); Red Blood Count 3.87 M/mcL (4.19-5.50); Red Cell Distribution Width 15.4 % (11.5-14.5); Segmented Neutrophils % 76.7 %
[2021-04-09 01:55] LABS: Alanine Aminotransferase 57 Units/L (7-52); Albumin 3.4 g/dL (3.5-5.7); Albumin/Globulin Ratio 0.7 (1.1-2.2); Alkaline Phosphatase 87 Units/L (34-104); Aspartate Amino Transferase 40 Units/L (13-39); BUN/Creatinine Ratio 53 (6-26); Bilirubin,Total 0.3 mg/dL (0.3-1.0); Blood Urea Nitrogen 54 mg/dL (8-23); Calcium 10.2 mg/dL (8.6-10.3); Carbon Dioxide 29 mEq/L (23-29); Chloride 103 mEq/L (98-107); Glucose 164 mg/dL (70-105); Magnesium 2.4 mg/dL (1.6-2.6); Osmolality,Calculated 298 (280-300); Potassium 5.8 mEq/L (3.5-5.1); Sodium 135 mEq/L (136-145); Total Protein 8.4 g/dL (6.4-8.9); eGFR For African Americans > 60 (> 60); eGFR For Non-African Americans > 60 (> 60)
[2021-04-09] MEDS ORDERED: Insulin Human Regular 5 UNIT in 0.9 % Sodium Chloride 10 ML IV ONE (01:57)
[2021-04-09] MEDS: D5% in Lactated Ringers 1,000 ML IVC SCH ×2 (02:20→16:57)
[2021-04-09] MEDS: 0.9 % Sodium Chloride 1,000 ML IVC SCH ×2 (04:47→19:40)
[2021-04-09] MEDS: *HR* Heparin 5,000 UNIT/ML VIAL SQ SCH ×2 (05:04→16:56)
[2021-04-09] MEDS ORDERED: Insulin LISPRO 300 UNITS/3 ML VIAL SUBQ SCH (06:00)
[2021-04-09 06:59] LABS: Adenovirus F 40/41 PCR Not detected (Not detect); Astrovirus PCR Not detected (Not detect); C.difficile Toxin A/B Gene PCR Not detected (Not detect); Campylobacter by PCR Not detected (Not detect); Cryptosporidium by PCR Not detected (Not detect); Cyclospora cayetanensis PCR Not detected (Not detect); E. coli O157 by PCR Not detected (Not detect); Entamoeba histolytica PCR Not detected (Not detect); Enteroaggregative E.coli(EAEC) Not detected (Not detect); Enteropathogenic E.coli(EPEC) Not detected (Not detect); Enterotoxigenic E.coli (ETEC) Not detected (Not detect); Giardia lamblia PCR Not detected (Not detect); Norovirus GI/GII PCR Not detected (Not detect); Plesiomonas shigelloides PCR Not detected (Not detect); Rotavirus A PCR Not detected (Not detect); Salmonella PCR Not detected (Not detect); Sapovirus PCR Not detected (Not detect); Shig/EnteroinvasiveE coli EIEC Not detected (Not detect); Shigalike tox-prod E coli STEC Not detected (Not detect); Vibrio PCR Not detected (Not detect); Vibrio cholerae PCR Not detected (Not detect); Yersinia enterocolitica PCR Not detected (Not detect)
[2021-04-09 07:23] LABS: BUN/Creatinine Ratio 50 (6-26); Blood Urea Nitrogen 49 mg/dL (8-23); Carbon Dioxide 28 mEq/L (23-29); Chloride 101 mEq/L (98-107); Glucose 232 mg/dL (70-105); Osmolality,Calculated 306 (280-300); Potassium 5.7 mEq/L (3.5-5.1); Sodium 138 mEq/L (136-145); eGFR For African Americans > 60 (> 60); eGFR For Non-African Americans > 60 (> 60)
[2021-04-09 09:18] LABS: Bilirubin,Urine Negative (Negative); Blood,Urine Negative (Negative); Clarity,Urine Clear (Clear); Color,Urine Light-Yellow (Yellow); Glucose,Urine (UA) 30 mg/dL (Normal); Ketones,Urine Negative (Negative); Leukocyte Esterase,Urine Negative (Negative); Mucus,Urine Few per lpf (None-Few); Nitrite,Urine Negative (Negative); PH,Urine 7.5 pH Units (5.0-8.0); Protein,Urine 30 mg/dL (Neg-Trace); Specific Gravity,Urine 1.016 (1.010-1.025); Urobilinogen,Urine Normal (Normal); WBC,Urine 0-3 per hpf (0-3)
[2021-04-09] MEDS: Insulin LISPRO 300 UNITS/3 ML VIAL SUBQ SCH ×3 (11:21→23:56)
[2021-04-09 15:45] LABS: BUN/Creatinine Ratio 46 (6-26); Blood Urea Nitrogen 43 mg/dL (8-23); Calcium 10.2 mg/dL (8.6-10.3); Carbon Dioxide 31 mEq/L (23-29); Chloride 102 mEq/L (98-107); Glucose 183 mg/dL (70-105); Osmolality,Calculated 304 (280-300); Potassium 5.7 mEq/L (3.5-5.1); Sodium 139 mEq/L (136-145); eGFR For African Americans > 60 (> 60); eGFR For Non-African Americans > 60 (> 60)
[2021-04-09] MEDS ORDERED: Albuterol 2.5 MG/3 ML NEBULIZER IH ONE (17:10)
[2021-04-09 21:51] LABS: BUN/Creatinine Ratio 43 (6-26); Blood Urea Nitrogen 41 mg/dL (8-23); Calcium 9.7 mg/dL (8.6-10.3); Carbon Dioxide 26 mEq/L (23-29); Chloride 102 mEq/L (98-107); Glucose 422 mg/dL (70-105); Osmolality,Calculated 312 (280-300); Potassium 4.3 mEq/L (3.5-5.1); Sodium 137 mEq/L (136-145); eGFR For African Americans > 60 (> 60); eGFR For Non-African Americans > 60 (> 60)
[2021-04-09] MEDS ORDERED: *HR* Metoprolol 5 MG/5 ML VIAL IVP ONE (23:40)
[2021-04-10 02:30] LABS: Basophils # 0.1 K/mcL (0.0-0.2); Basophils % 0.8 %; Eosinophils # 0.1 K/mcL (0.0-0.6); Eosinophils % 0.6 %; Hematocrit 32.1 % (37.5-50.1); Hemoglobin 9.7 g/dL (12.9-16.9); Immature Granulocytes % 0.3 % (0-4); Lymphocytes # 0.9 K/mcL (0.6-4.6); Lymphocytes % 8.7 %; Mean Corpuscular HGB Conc 30.2 g/dL (31.6-35.5); Mean Corpuscular Hemoglobin 28.3 pg (28.0-33.3); Mean Corpuscular Volume 93.6 fL (83.0-100.0); Mean Platelet Volume 11.9 fL (9.4-12.4); Monocytes # 0.6 K/mcL (0.0-1.3); Monocytes % 6.1 %; Neutrophils # 8.2 K/mcL (1.6-8.9); Platelet Count 362 K/mcL (140-400); Red Blood Count 3.43 M/mcL (4.19-5.50); Red Cell Distribution Width 15.5 % (11.5-14.5); Segmented Neutrophils % 83.5 %; White Blood Count 9.8 K/mcL (4.3-11.1)
[2021-04-10 02:49] LABS: BUN/Creatinine Ratio 42 (6-26); Blood Urea Nitrogen 38 mg/dL (8-23); Calcium 9.5 mg/dL (8.6-10.3); Carbon Dioxide 26 mEq/L (23-29); Chloride 103 mEq/L (98-107); Glucose 443 mg/dL (70-105); Osmolality,Calculated 310 (280-300); Potassium 4.4 mEq/L (3.5-5.1); Sodium 136 mEq/L (136-145); eGFR For African Americans > 60 (> 60); eGFR For Non-African Americans > 60 (> 60)
[2021-04-10] MEDS: *HR* Heparin 5,000 UNIT/ML VIAL SQ SCH (05:30)
[2021-04-10] MEDS: Insulin LISPRO 300 UNITS/3 ML VIAL SUBQ SCH ×4 (05:31→20:47)
[2021-04-10] MEDS: D5% in Lactated Ringers 1,000 ML IVC SCH (05:31)
[2021-04-10] MEDS ORDERED: D5% in Lactated Ringers 1,000 ML IVC SCH (05:34)
[2021-04-10] MEDS ORDERED: Acetaminophen IV 1,000 MG/100 ML BAG IVPB ONE (07:21)
[2021-04-10] MEDS: Lactobacillus 1 EACH CAP.SPRINK GTUBE SCH (07:52)
[2021-04-10 09:24] LABS: Adenovirus Not Detected (Not Detect); Bordetella Pertussis Not Detected (Not Detect); Chlamydophila pneumoniae Not Detected (Not Detect); Coronavirus 229E Not Detected (Not Detect); Coronavirus HKU1 Not Detected (Not Detect); Coronavirus NL63 Not Detected (Not Detect); Coronavirus OC43 Not Detected (Not Detect); Human Metapneumovirus Not Detected (Not Detect); Human Rhinovirus/Enterovirus Not Detected (Not Detect); Influenza A Subtype 2009 H1 Not Detected (Not Detect); Influenza B Not Detected (Not Detect); Mycoplasma pneumoniae Not Detected (Not Detect); Parainfluenza Virus 1 Not Detected (Not Detect); Parainfluenza Virus 2 Not Detected (Not Detect); Parainfluenza Virus 3 Not Detected (Not Detect); Parainfluenza Virus 4 Not Detected (Not Detect); Respiratory Syncytial Virus Not Detected (Not Detect); SARS-CoV-2 Not Detected (Not Detect)
[2021-04-10] MEDS ORDERED: *HR* Metoprolol 5 MG/5 ML VIAL IVP PRN (16:26)
[2021-04-10] MEDS ORDERED: Ringers Solution, Lactated 1,000 ML IVC SCH (16:30)
[2021-04-11] MEDS: Insulin LISPRO 300 UNITS/3 ML VIAL SUBQ SCH ×7 (01:37→23:54)
[2021-04-11 01:56] LABS: BUN/Creatinine Ratio 39 (6-26); Blood Urea Nitrogen 30 mg/dL (8-23); Calcium 9.3 mg/dL (8.6-10.3); Carbon Dioxide 30 mEq/L (23-29); Chloride 106 mEq/L (98-107); Glucose 238 mg/dL (70-105); Osmolality,Calculated 298 (280-300); Potassium 4.5 mEq/L (3.5-5.1); Sodium 137 mEq/L (136-145); eGFR For African Americans > 60 (> 60); eGFR For Non-African Americans > 60 (> 60)
[2021-04-11 02:23] LABS: Basophils # 0.1 K/mcL (0.0-0.2); Basophils % 0.7 %; Eosinophils # 0.2 K/mcL (0.0-0.6); Eosinophils % 1.3 %; Hematocrit 30.6 % (37.5-50.1); Hemoglobin 9.4 g/dL (12.9-16.9); Immature Granulocytes % 0.2 % (0-4); Lymphocytes # 1.2 K/mcL (0.6-4.6); Lymphocytes % 9.1 %; Mean Corpuscular HGB Conc 30.7 g/dL (31.6-35.5); Mean Corpuscular Hemoglobin 28.8 pg (28.0-33.3); Mean Corpuscular Volume 93.9 fL (83.0-100.0); Mean Platelet Volume 11.5 fL (9.4-12.4); Monocytes # 0.7 K/mcL (0.0-1.3); Monocytes % 5.8 %; Neutrophils # 10.6 K/mcL (1.6-8.9); Platelet Count 309 K/mcL (140-400); Red Blood Count 3.26 M/mcL (4.19-5.50); Red Cell Distribution Width 15.7 % (11.5-14.5); Segmented Neutrophils % 82.9 %; White Blood Count 12.8 K/mcL (4.3-11.1)
[2021-04-11] MEDS ORDERED: 0.9 % Sodium Chloride 500 ML IVC ONE (07:27)
[2021-04-11] MEDS ORDERED: Isovue-370 500 ML BOTTLE IVP ONE (07:29)
[2021-04-11] MEDS: Piperacillin/Tazobactam 3.375 GM in 0.9 % Sodium Chloride Mini Bag 100 ML IVPB SCH ×2 (09:33→17:27)
[2021-04-11] MEDS: Lactobacillus 1 EACH CAP.SPRINK GTUBE SCH (09:33)
[2021-04-11 12:52] LABS: C-Reactive Protein 52 mg/L (Less than 10)
[2021-04-11] MEDS: Ringers Solution, Lactated 1,000 ML IVC SCH (17:26)
[2021-04-11 17:51] LABS: INR 1.1; Prothrombin Time 12.2 Seconds (9.4-12.1)
[2021-04-12] MEDS: Piperacillin/Tazobactam 3.375 GM in 0.9 % Sodium Chloride Mini Bag 100 ML IVPB SCH ×3 (01:29→15:29)
[2021-04-12] MEDS: Insulin LISPRO 300 UNITS/3 ML VIAL SUBQ SCH ×6 (04:41→23:18)
[2021-04-12] MEDS: Ringers Solution, Lactated 1,000 ML IVC SCH ×3 (05:40→20:33)
[2021-04-12] MEDS: Lactobacillus 1 EACH CAP.SPRINK GTUBE SCH (07:36)
[2021-04-12] MEDS ORDERED: *HR* FentaNYL (PF) 100 MCG/2 ML VIAL ONE (09:05)
[2021-04-12] MEDS ORDERED: Ondansetron 4 MG/2 ML VIAL ONE (09:05)
[2021-04-12] MEDS ORDERED: *HR* Midazolam HCl 2 MG/2 ML VIAL ONE (09:05)
[2021-04-12] MEDS ORDERED: Lidocaine -MPF 2% 5 ML VIAL ONE (09:05)
[2021-04-12] MEDS ORDERED: Lidocaine HCL 4 ML Topical Solution (Laryng-O-Jet Kit Sterile Pak) TP ONE (09:34)
[2021-04-12] MEDS ORDERED: Ondansetron 4 MG/2 ML VIAL IVP PRN (10:18)
[2021-04-12 11:46] LABS: Hemoglobin 9.5 g/dL (12.9-16.9); Mean Corpuscular Volume 95.5 fL (83.0-100.0); Red Cell Distribution Width 15.4 % (11.5-14.5); Segmented Neutrophils % 79.1 %
[2021-04-12 11:47] LABS: Basophils # 0.1 K/mcL (0.0-0.2); Basophils % 1.2 %; Eosinophils # 0.3 K/mcL (0.0-0.6); Eosinophils % 3.4 %; Hematocrit 31.8 % (37.5-50.1); Immature Granulocytes % 0.4 % (0-4); Lymphocytes # 1.1 K/mcL (0.6-4.6); Mean Corpuscular HGB Conc 29.9 g/dL (31.6-35.5); Mean Corpuscular Hemoglobin 28.5 pg (28.0-33.3); Mean Platelet Volume 11.8 fL (9.4-12.4); Monocytes # 0.2 K/mcL (0.0-1.3); Monocytes % 2.9 %; Neutrophils # 6.5 K/mcL (1.6-8.9); Platelet Count 231 K/mcL (140-400); Red Blood Count 3.33 M/mcL (4.19-5.50); White Blood Count 8.2 K/mcL (4.3-11.1)
[2021-04-12 12:30] LABS: Appearance of Body Fluid Cloudy (Clear); Volume of Body Fluid 23 mL
[2021-04-12 14:43] LABS: BUN/Creatinine Ratio 26 (6-26); Blood Urea Nitrogen 19 mg/dL (8-23); Calcium 9.4 mg/dL (8.6-10.3); Carbon Dioxide 25 mEq/L (23-29); Chloride 101 mEq/L (98-107); Glucose 119 mg/dL (70-105); Osmolality,Calculated 279 (280-300); Sodium 133 mEq/L (136-145); Vancomycin,Trough 24 mcg/mL (5-10); eGFR For African Americans > 60 (> 60); eGFR For Non-African Americans > 60 (> 60)
[2021-04-13] MEDS: Piperacillin/Tazobactam 3.375 GM in 0.9 % Sodium Chloride Mini Bag 100 ML IVPB SCH ×3 (00:32→15:55)
[2021-04-13] MEDS: Insulin LISPRO 300 UNITS/3 ML VIAL SUBQ SCH ×6 (03:39→22:57)
[2021-04-13] MEDS: Lactobacillus 1 EACH CAP.SPRINK GTUBE SCH (08:57)
[2021-04-13 10:31] LABS: Basophils # 0.1 K/mcL (0.0-0.2); Basophils % 0.6 %; Eosinophils # 0.2 K/mcL (0.0-0.6); Eosinophils % 2.5 %; Hematocrit 31.4 % (37.5-50.1); Hemoglobin 9.8 g/dL (12.9-16.9); Immature Granulocytes % 0.2 % (0-4); Lymphocytes # 1.8 K/mcL (0.6-4.6); Lymphocytes % 21.1 %; Mean Corpuscular HGB Conc 31.2 g/dL (31.6-35.5); Mean Corpuscular Hemoglobin 28.7 pg (28.0-33.3); Mean Corpuscular Volume 92.1 fL (83.0-100.0); Mean Platelet Volume 11.1 fL (9.4-12.4); Monocytes # 0.6 K/mcL (0.0-1.3); Monocytes % 7.4 %; Neutrophils # 5.7 K/mcL (1.6-8.9); Platelet Count 299 K/mcL (140-400); Red Blood Count 3.41 M/mcL (4.19-5.50); Red Cell Distribution Width 14.9 % (11.5-14.5); Segmented Neutrophils % 68.2 %; White Blood Count 8.3 K/mcL (4.3-11.1)
[2021-04-13 10:49] LABS: BUN/Creatinine Ratio 31 (6-26); Blood Urea Nitrogen 24 mg/dL (8-23); Calcium 9.2 mg/dL (8.6-10.3); Carbon Dioxide 27 mEq/L (23-29); Chloride 102 mEq/L (98-107); Glucose 153 mg/dL (70-105); Osmolality,Calculated 287 (280-300); Potassium 4.8 mEq/L (3.5-5.1); Sodium 135 mEq/L (136-145); eGFR For African Americans > 60 (> 60); eGFR For Non-African Americans > 60 (> 60)
[2021-04-13] MEDS: Ringers Solution, Lactated 1,000 ML IVC SCH ×2 (11:08→11:29)
[2021-04-13] MEDS ORDERED: Ringers Solution, Lactated 1,000 ML IVC SCH (14:45)
[2021-04-14] MEDS: Piperacillin/Tazobactam 3.375 GM in 0.9 % Sodium Chloride Mini Bag 100 ML IVPB SCH ×4 (00:22→23:35)
[2021-04-14 02:25] LABS: Basophils # 0.1 K/mcL (0.0-0.2); Basophils % 0.6 %; Eosinophils # 0.3 K/mcL (0.0-0.6); Eosinophils % 3.7 %; Hematocrit 31.7 % (37.5-50.1); Immature Granulocytes % 0.5 % (0-4); Lymphocytes # 1.5 K/mcL (0.6-4.6); Lymphocytes % 18.1 %; Mean Corpuscular HGB Conc 31.5 g/dL (31.6-35.5); Mean Corpuscular Volume 91.9 fL (83.0-100.0); Mean Platelet Volume 11.1 fL (9.4-12.4); Monocytes # 0.6 K/mcL (0.0-1.3); Monocytes % 6.9 %; Neutrophils # 5.9 K/mcL (1.6-8.9); Platelet Count 309 K/mcL (140-400); Red Blood Count 3.45 M/mcL (4.19-5.50); Red Cell Distribution Width 15.1 % (11.5-14.5); Segmented Neutrophils % 70.2 %; White Blood Count 8.4 K/mcL (4.3-11.1)
[2021-04-14 02:40] LABS: BUN/Creatinine Ratio 29 (6-26); Blood Urea Nitrogen 20 mg/dL (8-23); Carbon Dioxide 27 mEq/L (23-29); Chloride 103 mEq/L (98-107); Glucose 218 mg/dL (70-105); Osmolality,Calculated 287 (280-300); Potassium 4.5 mEq/L (3.5-5.1); Sodium 134 mEq/L (136-145); eGFR For African Americans > 60 (> 60); eGFR For Non-African Americans > 60 (> 60)
[2021-04-14] MEDS: Insulin LISPRO 300 UNITS/3 ML VIAL SUBQ SCH ×6 (03:17→23:07)
[2021-04-14] MEDS: Lactobacillus 1 EACH CAP.SPRINK GTUBE SCH (07:44)
[2021-04-14] MEDS: Insulin DETEMIR 100 UNIT/ML X5UNITS SUBQ SCH ×2 (08:15→20:28)
[2021-04-15 01:10] LABS: Basophils # 0.1 K/mcL (0.0-0.2); Eosinophils # 0.4 K/mcL (0.0-0.6); Eosinophils % 4.1 %; Hematocrit 34.1 % (37.5-50.1); Hemoglobin 10.4 g/dL (12.9-16.9); Immature Granulocytes % 0.5 % (0-4); Lymphocytes # 1.8 K/mcL (0.6-4.6); Lymphocytes % 19.7 %; Mean Corpuscular HGB Conc 30.5 g/dL (31.6-35.5); Mean Corpuscular Hemoglobin 27.9 pg (28.0-33.3); Mean Corpuscular Volume 91.4 fL (83.0-100.0); Mean Platelet Volume 10.8 fL (9.4-12.4); Monocytes # 0.8 K/mcL (0.0-1.3); Monocytes % 8.7 %; Neutrophils # 6.1 K/mcL (1.6-8.9); Platelet Count 334 K/mcL (140-400); Red Blood Count 3.73 M/mcL (4.19-5.50); Red Cell Distribution Width 15.3 % (11.5-14.5); White Blood Count 9.3 K/mcL (4.3-11.1)
[2021-04-15 01:25] LABS: BUN/Creatinine Ratio 32 (6-26); Blood Urea Nitrogen 24 mg/dL (8-23); Calcium 9.2 mg/dL (8.6-10.3); Carbon Dioxide 26 mEq/L (23-29); Chloride 103 mEq/L (98-107); Glucose 165 mg/dL (70-105); Osmolality,Calculated 288 (280-300); Potassium 4.6 mEq/L (3.5-5.1); Sodium 135 mEq/L (136-145); eGFR For African Americans > 60 (> 60); eGFR For Non-African Americans > 60 (> 60)
[2021-04-15 01:27] LABS: Magnesium 1.8 mg/dL (1.6-2.6); Phosphorous 3.4 mg/dL (2.7-4.5)
[2021-04-15] MEDS: Insulin LISPRO 300 UNITS/3 ML VIAL SUBQ SCH ×4 (03:22→14:18)
[2021-04-15] MEDS: Lactobacillus 1 EACH CAP.SPRINK GTUBE SCH (07:41)
[2021-04-15] MEDS: Piperacillin/Tazobactam 3.375 GM in 0.9 % Sodium Chloride Mini Bag 100 ML IVPB SCH ×2 (07:42→15:17)
[2021-04-15] MEDS: Insulin DETEMIR 100 UNIT/ML X5UNITS SUBQ SCH (07:42)
[2021-04-15 11:05] VITALS: BP 92/62; PULSE 101; TEMP 98.5; O2SAT 98
[2021-04-15 12:55] LABS: Adenovirus Not Detected (Not Detect); Bordetella Pertussis Not Detected (Not Detect); Chlamydophila pneumoniae Not Detected (Not Detect); Coronavirus 229E Not Detected (Not Detect); Coronavirus HKU1 Not Detected (Not Detect); Coronavirus NL63 Not Detected (Not Detect); Coronavirus OC43 Not Detected (Not Detect); Human Metapneumovirus Not Detected (Not Detect); Human Rhinovirus/Enterovirus Not Detected (Not Detect); Influenza A Subtype 2009 H1 Not Detected (Not Detect); Influenza B Not Detected (Not Detect); Mycoplasma pneumoniae Not Detected (Not Detect); Parainfluenza Virus 1 Not Detected (Not Detect); Parainfluenza Virus 2 Not Detected (Not Detect); Parainfluenza Virus 3 Not Detected (Not Detect); Parainfluenza Virus 4 Not Detected (Not Detect); Respiratory Syncytial Virus Not Detected (Not Detect); SARS-CoV-2 Not Detected (Not Detect)
[2021-04-16 17:03] LABS: HSV Source RLL BAL
== END 2021-04-15 16:14 | DRG 720 ==
LOC: EMEROOARM 18:42 → 2ANU 18:42 → SUATTDRO 23:52
PROVIDERS: ADMIT Internal Medicine; ATTEND Internal Medicine

== ENCOUNTER 2021-04-24 15:01 | Observation (INO) ==
[2021-04-25] MEDS ORDERED: Naloxone 0.4 MG/ML INJ IVP PRN (15:38)
[2021-04-25] MEDS ORDERED: Ondansetron 4 MG/2 ML VIAL IVP PRN (15:38)
[2021-04-25] MEDS ORDERED: D5% in 0.45% NACL 1,000 ML IVC SCH (15:45)
[2021-04-25] MEDS: Piperacillin/Tazobactam 3.375 GM in 0.9 % Sodium Chloride Mini Bag 100 ML IVPB SCH (16:17)
[2021-04-26] MEDS: Piperacillin/Tazobactam 3.375 GM in 0.9 % Sodium Chloride Mini Bag 100 ML IVPB SCH ×3 (00:07→16:45)
[2021-04-26] MEDS ORDERED: D5% in Water 1,000 ML IVC PRN (05:37)
[2021-04-26] MEDS ORDERED: Dextrose Gel 15 GM/37.5 ML TUBE PO PRN ×2 (05:37)
[2021-04-26] MEDS ORDERED: *HR* Dextrose 50 % in Water (Syg) 50 ML SYRINGE IVP PRN (05:37)
[2021-04-26] MEDS: Insulin LISPRO 300 UNITS/3 ML VIAL SUBQ SCH ×6 (08:41→20:51)
[2021-04-26] MEDS: Lactobacillus 1 EACH CAP.SPRINK GTUBE SCH (08:43)
[2021-04-26] MEDS: Ferrous Sulfate Oral Soln 300 MG/5 ML UDC GTUBE SCH (08:44)
[2021-04-26] MEDS: D5% in Water 1,000 ML IVC SCH (13:10)
[2021-04-26] MEDS: Insulin DETEMIR 100 UNIT/ML X5UNITS SUBQ SCH (20:52)
[2021-04-27] MEDS: Piperacillin/Tazobactam 3.375 GM in 0.9 % Sodium Chloride Mini Bag 100 ML IVPB SCH ×3 (00:44→16:00)
[2021-04-27] MEDS: Insulin LISPRO 300 UNITS/3 ML VIAL SUBQ SCH ×8 (00:48→21:19)
[2021-04-27 08:06] LABS: Basophils # 0.1 K/mcL (0.0-0.2); Basophils % 0.6 %; Eosinophils # 0.2 K/mcL (0.0-0.6); Eosinophils % 2.9 %; Hematocrit 33.3 % (37.5-50.1); Hemoglobin 10.1 g/dL (12.9-16.9); Immature Granulocytes % 0.3 % (0-4); Lymphocytes # 1.2 K/mcL (0.6-4.6); Lymphocytes % 14.8 %; Mean Corpuscular HGB Conc 30.3 g/dL (31.6-35.5); Mean Corpuscular Hemoglobin 28.5 pg (28.0-33.3); Mean Corpuscular Volume 93.8 fL (83.0-100.0); Mean Platelet Volume 11.5 fL (9.4-12.4); Monocytes # 0.8 K/mcL (0.0-1.3); Monocytes % 9.4 %; Neutrophils # 5.8 K/mcL (1.6-8.9); Platelet Count 267 K/mcL (140-400); Red Blood Count 3.55 M/mcL (4.19-5.50); Red Cell Distribution Width 15.2 % (11.5-14.5)
[2021-04-27] MEDS ORDERED: *HR* Alteplase (Cathflo) 2 MG VIAL IVP PRN (08:07)
[2021-04-27] MEDS: Ferrous Sulfate Oral Soln 300 MG/5 ML UDC GTUBE SCH (08:22)
[2021-04-27 08:24] LABS: Alanine Aminotransferase 29 Units/L (7-52); Albumin 3.1 g/dL (3.5-5.7); Albumin/Globulin Ratio 0.8 (1.1-2.2); Alkaline Phosphatase 83 Units/L (34-104); Aspartate Amino Transferase 25 Units/L (13-39); BUN/Creatinine Ratio 42 (6-26); Bilirubin,Total 0.2 mg/dL (0.3-1.0); Blood Urea Nitrogen 38 mg/dL (8-23); Calcium 9.2 mg/dL (8.6-10.3); Carbon Dioxide 32 mEq/L (23-29); Chloride 107 mEq/L (98-107); Globulin 4.1 g/dL (2.4-3.5); Glucose 275 mg/dL (70-105); Osmolality,Calculated 315 (280-300); Potassium 4.1 mEq/L (3.5-5.1); Sodium 143 mEq/L (136-145); Total Protein 7.2 g/dL (6.4-8.9); eGFR For African Americans > 60 (> 60); eGFR For Non-African Americans > 60 (> 60)
[2021-04-27] MEDS: Lactobacillus 1 EACH CAP.SPRINK GTUBE SCH (08:25)
[2021-04-27] MEDS: D5% in Water 1,000 ML IVC SCH (12:33)
[2021-04-27] MEDS ORDERED: *HR* Enoxaparin 40 MG/0.4 ML SYRINGE SQ ONE (14:20)
[2021-04-27] MEDS: Insulin DETEMIR 100 UNIT/ML X5UNITS SUBQ SCH (22:22)
[2021-04-28] MEDS: Piperacillin/Tazobactam 3.375 GM in 0.9 % Sodium Chloride Mini Bag 100 ML IVPB SCH ×4 (00:38→23:33)
[2021-04-28 02:56] LABS: Basophils # 0.1 K/mcL (0.0-0.2); Basophils % 0.8 %; Eosinophils # 0.2 K/mcL (0.0-0.6); Eosinophils % 2.5 %; Hematocrit 34.4 % (37.5-50.1); Hemoglobin 10.2 g/dL (12.9-16.9); Immature Granulocytes % 0.8 % (0-4); Lymphocytes # 1.6 K/mcL (0.6-4.6); Lymphocytes % 19.5 %; Mean Corpuscular HGB Conc 29.7 g/dL (31.6-35.5); Mean Corpuscular Hemoglobin 28.1 pg (28.0-33.3); Mean Corpuscular Volume 94.8 fL (83.0-100.0); Monocytes # 0.6 K/mcL (0.0-1.3); Monocytes % 7.7 %; Neutrophils # 5.5 K/mcL (1.6-8.9); Platelet Count 288 K/mcL (140-400); Red Blood Count 3.63 M/mcL (4.19-5.50); Red Cell Distribution Width 15.3 % (11.5-14.5); Segmented Neutrophils % 68.7 %
[2021-04-28 03:45] LABS: Alanine Aminotransferase 25 Units/L (7-52); Albumin 3.2 g/dL (3.5-5.7); Albumin/Globulin Ratio 0.8 (1.1-2.2); Alkaline Phosphatase 74 Units/L (34-104); Aspartate Amino Transferase 25 Units/L (13-39); BUN/Creatinine Ratio 34 (6-26); Bilirubin,Total 0.2 mg/dL (0.3-1.0); Blood Urea Nitrogen 32 mg/dL (8-23); Calcium 9.3 mg/dL (8.6-10.3); Carbon Dioxide 27 mEq/L (23-29); Chloride 104 mEq/L (98-107); Globulin 4.1 g/dL (2.4-3.5); Glucose 291 mg/dL (70-105); Osmolality,Calculated 310 (280-300); Potassium 4.7 mEq/L (3.5-5.1); Sodium 141 mEq/L (136-145); Total Protein 7.3 g/dL (6.4-8.9); eGFR For African Americans > 60 (> 60); eGFR For Non-African Americans > 60 (> 60)
[2021-04-28] MEDS: Insulin LISPRO 300 UNITS/3 ML VIAL SUBQ SCH ×6 (06:14→23:38)
[2021-04-28] MEDS: *HR* Enoxaparin 40 MG/0.4 ML SYRINGE SQ SCH (06:43)
[2021-04-28] MEDS: Lactobacillus 1 EACH CAP.SPRINK GTUBE SCH (08:31)
[2021-04-28] MEDS: Ferrous Sulfate Oral Soln 300 MG/5 ML UDC GTUBE SCH (08:32)
[2021-04-28] MEDS ORDERED: Moderna Covid-19 Vaccine 100MCG/0.5mL IM ONE (09:21)
[2021-04-28] MEDS ORDERED: Pfizer Covid-19 Vaccine 30MCG/0.3ML IM ONE (09:55)
[2021-04-28] MEDS: Insulin DETEMIR 100 UNIT/ML X5UNITS SUBQ SCH (20:15)
[2021-04-29] MEDS: *HR* Enoxaparin 40 MG/0.4 ML SYRINGE SQ SCH (05:05)
[2021-04-29] MEDS: Insulin LISPRO 300 UNITS/3 ML VIAL SUBQ SCH ×2 (06:10→12:43)
[2021-04-29] MEDS: Piperacillin/Tazobactam 3.375 GM in 0.9 % Sodium Chloride Mini Bag 100 ML IVPB SCH (10:10)
[2021-04-29] MEDS: Lactobacillus 1 EACH CAP.SPRINK GTUBE SCH (10:32)
[2021-04-29] MEDS: Ferrous Sulfate Oral Soln 300 MG/5 ML UDC GTUBE SCH (10:32)
[2021-04-29 11:56] VITALS: BP 100/66; PULSE 92; TEMP 98.5; O2SAT 96
[2021-04-29 13:41] LABS: Adenovirus Not Detected (Not Detect); Bordetella Pertussis Not Detected (Not Detect); Chlamydophila pneumoniae Not Detected (Not Detect); Coronavirus 229E Not Detected (Not Detect); Coronavirus HKU1 Not Detected (Not Detect); Coronavirus NL63 Not Detected (Not Detect); Coronavirus OC43 Not Detected (Not Detect); Human Metapneumovirus Not Detected (Not Detect); Human Rhinovirus/Enterovirus Not Detected (Not Detect); Influenza A Subtype 2009 H1 Not Detected (Not Detect); Influenza B Not Detected (Not Detect); Mycoplasma pneumoniae Not Detected (Not Detect); Parainfluenza Virus 1 Not Detected (Not Detect); Parainfluenza Virus 2 Not Detected (Not Detect); Parainfluenza Virus 3 Not Detected (Not Detect); Parainfluenza Virus 4 Not Detected (Not Detect); Respiratory Syncytial Virus Not Detected (Not Detect); SARS-CoV-2 Not Detected (Not Detect)
== END 2021-04-29 15:33 ==
LOC: 2ANU → SUATTDRO 04-25 14:17
PROVIDERS: ADMIT Hospitalist; ATTEND Hospitalist

== ENCOUNTER 2021-05-08 18:53 | Inpatient (IN) ==
[2021-05-08] MEDS ORDERED: Naloxone 0.4 MG/ML INJ IVP PRN (22:59)
[2021-05-08] MEDS ORDERED: Insulin Human Regular 10 UNIT in 0.9 % Sodium Chloride 10 ML IV ONE (23:15)
[2021-05-09 00:10] LABS: VBG HCO3 33 mEq/L (21-27); VBG PCO2 60 mmHg (41-51); VBG PH 7.36 pH Units (7.32-7.42); VBG PO2 55 mmHg (25-50)
[2021-05-09] MEDS: D5% in Water 1,000 ML IVC SCH ×2 (00:38→14:12)
[2021-05-09] MEDS: Piperacillin/Tazobactam 3.375 GM in D5% in Water (Mini-Bag+) 100 ML IVPB SCH ×3 (00:43→16:05)
[2021-05-09 01:00] LABS: Hemoglobin 10.9 g/dL (12.9-16.9); Red Cell Distribution Width 16.8 % (11.5-14.5)
[2021-05-09 01:02] LABS: Basophils # 0.1 K/mcL (0.0-0.2); Basophils % 0.7 %; Eosinophils # 0.1 K/mcL (0.0-0.6); Eosinophils % 0.4 %; Immature Granulocytes % 0.6 % (0-4); Lymphocytes # 1.6 K/mcL (0.6-4.6); Lymphocytes % 11.2 %; Mean Corpuscular HGB Conc 28.7 g/dL (31.6-35.5); Mean Corpuscular Hemoglobin 28.2 pg (28.0-33.3); Mean Corpuscular Volume 98.2 fL (83.0-100.0); Mean Platelet Volume 12.7 fL (9.4-12.4); Monocytes # 0.5 K/mcL (0.0-1.3); Monocytes % 3.6 %; Neutrophils # 12.2 K/mcL (1.6-8.9); Platelet Count 372 K/mcL (140-400); Red Blood Count 3.87 M/mcL (4.19-5.50); Segmented Neutrophils % 83.5 %; White Blood Count 14.6 K/mcL (4.3-11.1)
[2021-05-09 01:52] LABS: BUN/Creatinine Ratio 68 (6-26); Blood Urea Nitrogen 93 mg/dL (8-23); Calcium 9.5 mg/dL (8.6-10.3); Carbon Dioxide 32 mEq/L (23-29); Chloride 112 mEq/L (98-107); Glucose 475 mg/dL (70-105); Osmolality,Calculated 364 (280-300); Potassium 4.4 mEq/L (3.5-5.1); Sodium 152 mEq/L (136-145); eGFR For African Americans > 60 (> 60); eGFR For Non-African Americans 53 (> 60)
[2021-05-09] MEDS ORDERED: *HR* Dextrose 50 % in Water (Syg) 50 ML SYRINGE IVP PRN (01:55)
[2021-05-09] MEDS ORDERED: Dextrose Gel 15 GM/37.5 ML TUBE PO PRN ×2 (01:55)
[2021-05-09] MEDS ORDERED: D5% in Water 1,000 ML IVC PRN (01:55)
[2021-05-09] MEDS: Insulin DETEMIR 100 UNIT/ML X5UNITS SUBQ SCH ×2 (02:55→20:35)
[2021-05-09 03:16] LABS: Hypochromasia Present (Not Present)
[2021-05-09 03:17] LABS: Platelet Estimate Normal (Normal)
[2021-05-09] MEDS: Insulin LISPRO 300 UNITS/3 ML VIAL SUBQ SCH ×5 (05:06→19:58)
[2021-05-09] MEDS: Silver Sulfadiazine 50 GM TUBE TP SCH (17:02)
[2021-05-10] MEDS: Insulin LISPRO 300 UNITS/3 ML VIAL SUBQ SCH ×5 (00:45→21:57)
[2021-05-10] MEDS: Piperacillin/Tazobactam 3.375 GM in D5% in Water (Mini-Bag+) 100 ML IVPB SCH ×3 (00:47→21:50)
[2021-05-10 01:19] LABS: Basophils # 0.1 K/mcL (0.0-0.2); Basophils % 0.7 %; Eosinophils # 0.2 K/mcL (0.0-0.6); Eosinophils % 1.7 %; Hematocrit 36.1 % (37.5-50.1); Hemoglobin 10.8 g/dL (12.9-16.9); Immature Granulocytes % 0.6 % (0-4); Lymphocytes # 1.4 K/mcL (0.6-4.6); Lymphocytes % 13.7 %; Mean Corpuscular HGB Conc 29.9 g/dL (31.6-35.5); Mean Corpuscular Hemoglobin 28.4 pg (28.0-33.3); Mean Platelet Volume 12.1 fL (9.4-12.4); Monocytes # 0.7 K/mcL (0.0-1.3); Monocytes % 6.6 %; Neutrophils # 7.9 K/mcL (1.6-8.9); Platelet Count 301 K/mcL (140-400); Red Cell Distribution Width 15.8 % (11.5-14.5); Segmented Neutrophils % 76.7 %; White Blood Count 10.3 K/mcL (4.3-11.1)
[2021-05-10 01:47] LABS: BUN/Creatinine Ratio 61 (6-26); Blood Urea Nitrogen 69 mg/dL (8-23); Carbon Dioxide 28 mEq/L (23-29); Chloride 106 mEq/L (98-107); Glucose 232 mg/dL (70-105); Osmolality,Calculated 324 (280-300); Potassium 3.9 mEq/L (3.5-5.1); Sodium 143 mEq/L (136-145); eGFR For African Americans > 60 (> 60); eGFR For Non-African Americans > 60 (> 60)
[2021-05-10] MEDS: D5% in Water 1,000 ML IVC SCH ×2 (04:15→21:56)
[2021-05-10] MEDS: Ferrous Sulfate Oral Soln 300 MG/5 ML UDC GTUBE SCH (10:00)
[2021-05-10] MEDS: Lactobacillus 1 EACH CAP.SPRINK GTUBE SCH (10:01)
[2021-05-10] MEDS: Insulin DETEMIR 100 UNIT/ML X5UNITS SUBQ SCH (21:56)
[2021-05-11] MEDS: Piperacillin/Tazobactam 3.375 GM in D5% in Water (Mini-Bag+) 100 ML IVPB SCH ×3 (00:16→16:20)
[2021-05-11] MEDS: Silver Sulfadiazine 50 GM TUBE TP SCH ×2 (00:16→16:22)
[2021-05-11] MEDS: Insulin LISPRO 300 UNITS/3 ML VIAL SUBQ SCH ×7 (00:29→20:53)
[2021-05-11 02:09] LABS: Hematocrit 34.6 % (37.5-50.1); Hemoglobin 10.5 g/dL (12.9-16.9); Mean Corpuscular HGB Conc 30.3 g/dL (31.6-35.5); Mean Corpuscular Hemoglobin 28.5 pg (28.0-33.3); Mean Corpuscular Volume 93.8 fL (83.0-100.0); Mean Platelet Volume 12.3 fL (9.4-12.4); Platelet Count 295 K/mcL (140-400); Red Blood Count 3.69 M/mcL (4.19-5.50); White Blood Count 10.5 K/mcL (4.3-11.1)
[2021-05-11 02:36] LABS: BUN/Creatinine Ratio 55 (6-26); Blood Urea Nitrogen 53 mg/dL (8-23); Calcium 9.3 mg/dL (8.6-10.3); Carbon Dioxide 23 mEq/L (23-29); Chloride 103 mEq/L (98-107); Glucose 321 mg/dL (70-105); Osmolality,Calculated 315 (280-300); Potassium 4.4 mEq/L (3.5-5.1); Sodium 139 mEq/L (136-145); eGFR For African Americans > 60 (> 60); eGFR For Non-African Americans > 60 (> 60)
[2021-05-11] MEDS: Lactobacillus 1 EACH CAP.SPRINK GTUBE SCH (10:04)
[2021-05-11] MEDS: Ferrous Sulfate Oral Soln 300 MG/5 ML UDC GTUBE SCH (10:05)
[2021-05-11] MEDS: D5% in Water 1,000 ML IVC SCH ×2 (14:30→17:26)
[2021-05-11] MEDS: Insulin DETEMIR 100 UNIT/ML X5UNITS SUBQ SCH (20:54)
[2021-05-12] MEDS: Insulin LISPRO 300 UNITS/3 ML VIAL SUBQ SCH ×6 (00:59→20:28)
[2021-05-12] MEDS: Piperacillin/Tazobactam 3.375 GM in D5% in Water (Mini-Bag+) 100 ML IVPB SCH ×4 (01:46→23:55)
[2021-05-12 03:32] LABS: Hematocrit 33.8 % (37.5-50.1); Hemoglobin 10.2 g/dL (12.9-16.9); Mean Corpuscular HGB Conc 30.2 g/dL (31.6-35.5); Mean Corpuscular Hemoglobin 27.7 pg (28.0-33.3); Mean Corpuscular Volume 91.8 fL (83.0-100.0); Mean Platelet Volume 12.4 fL (9.4-12.4); Platelet Count 301 K/mcL (140-400); Red Blood Count 3.68 M/mcL (4.19-5.50); White Blood Count 10.5 K/mcL (4.3-11.1)
[2021-05-12] MEDS: D5% in Water 1,000 ML IVC SCH (03:41)
[2021-05-12 03:53] LABS: BUN/Creatinine Ratio 51 (6-26); Blood Urea Nitrogen 45 mg/dL (8-23); Calcium 8.7 mg/dL (8.6-10.3); Carbon Dioxide 30 mEq/L (23-29); Chloride 101 mEq/L (98-107); Glucose 312 mg/dL (70-105); Osmolality,Calculated 307 (280-300); Potassium 4.5 mEq/L (3.5-5.1); Sodium 137 mEq/L (136-145); eGFR For African Americans > 60 (> 60); eGFR For Non-African Americans > 60 (> 60)
[2021-05-12] MEDS: Ferrous Sulfate Oral Soln 300 MG/5 ML UDC GTUBE SCH (07:31)
[2021-05-12] MEDS: Lactobacillus 1 EACH CAP.SPRINK GTUBE SCH (07:31)
[2021-05-12 11:03] LABS: Estimated Average Glucose 192 mg/dl; Hemoglobin A1C 8.3 %
[2021-05-12] MEDS ORDERED: 0.9 % Sodium Chloride 1,000 ML ONE (13:34)
[2021-05-12] MEDS: Silver Sulfadiazine 50 GM TUBE TP SCH (16:53)
[2021-05-12] MEDS: Insulin DETEMIR 100 UNIT/ML X5UNITS SUBQ SCH (20:29)
[2021-05-13 01:05] LABS: Hematocrit 34.1 % (37.5-50.1); Hemoglobin 10.6 g/dL (12.9-16.9); Mean Corpuscular HGB Conc 31.1 g/dL (31.6-35.5); Mean Corpuscular Volume 93.4 fL (83.0-100.0); Mean Platelet Volume 12.3 fL (9.4-12.4); Platelet Count 273 K/mcL (140-400); Red Blood Count 3.65 M/mcL (4.19-5.50); White Blood Count 10.6 K/mcL (4.3-11.1)
[2021-05-13] MEDS: Insulin LISPRO 300 UNITS/3 ML VIAL SUBQ SCH ×5 (01:10→17:20)
[2021-05-13 01:16] LABS: BUN/Creatinine Ratio 46 (6-26); Blood Urea Nitrogen 39 mg/dL (8-23); C-Reactive Protein 27 mg/L (Less than 10); Calcium 8.8 mg/dL (8.6-10.3); Carbon Dioxide 26 mEq/L (23-29); Chloride 99 mEq/L (98-107); Glucose 252 mg/dL (70-105); Osmolality,Calculated 296 (280-300); Potassium 4.8 mEq/L (3.5-5.1); Sodium 134 mEq/L (136-145); eGFR For African Americans > 60 (> 60); eGFR For Non-African Americans > 60 (> 60)
[2021-05-13] MEDS: Lactobacillus 1 EACH CAP.SPRINK GTUBE SCH (09:23)
[2021-05-13] MEDS: Ferrous Sulfate Oral Soln 300 MG/5 ML UDC GTUBE SCH (09:23)
[2021-05-13] MEDS: Piperacillin/Tazobactam 3.375 GM in D5% in Water (Mini-Bag+) 100 ML IVPB SCH ×2 (09:23→17:21)
[2021-05-13 15:35] LABS: Adenovirus Not Detected (Not Detect); Bordetella Pertussis Not Detected (Not Detect); Chlamydophila pneumoniae Not Detected (Not Detect); Coronavirus 229E Not Detected (Not Detect); Coronavirus HKU1 Not Detected (Not Detect); Coronavirus NL63 Not Detected (Not Detect); Coronavirus OC43 Not Detected (Not Detect); Human Metapneumovirus Not Detected (Not Detect); Human Rhinovirus/Enterovirus Not Detected (Not Detect); Influenza A Subtype 2009 H1 Not Detected (Not Detect); Influenza B Not Detected (Not Detect); Mycoplasma pneumoniae Not Detected (Not Detect); Parainfluenza Virus 1 Not Detected (Not Detect); Parainfluenza Virus 2 Not Detected (Not Detect); Parainfluenza Virus 3 Not Detected (Not Detect); Parainfluenza Virus 4 Not Detected (Not Detect); Respiratory Syncytial Virus Not Detected (Not Detect); SARS-CoV-2 Not Detected (Not Detect)
[2021-05-13 15:39] VITALS: BP 93/64; PULSE 83; TEMP 99; O2SAT 99
== END 2021-05-13 18:20 | DRG 720 ==
LOC: 3NENU → SUATTDRO 21:06
PROVIDERS: ADMIT Internal Medicine; ATTEND Family Medicine

== ENCOUNTER 2021-06-05 22:41 | Inpatient (IN) ==
[2021-06-06] MEDS ORDERED: Ondansetron 4 MG/2 ML VIAL IVP PRN (00:36)
[2021-06-06] MEDS ORDERED: Melatonin 3 MG TABLET PO PRN (00:36)
[2021-06-06] MEDS ORDERED: Naloxone 0.4 MG/ML INJ IVP PRN (00:36)
[2021-06-06] MEDS ORDERED: Cefepime HCl 2,000 MG in 0.9 % Sodium Chloride 10 ML IVP ONE (00:44)
[2021-06-06] MEDS: D5% in Lactated Ringers 1,000 ML IVC SCH ×2 (01:15→09:21)
[2021-06-06 01:45] LABS: Immature Granulocytes % 0.5 % (0-4); Lymphocytes % 13.5 %; Red Blood Count 4.64 M/mcL (4.19-5.50)
[2021-06-06] MEDS: Dexamethasone Sodium Phos/PF 10 MG/ML VIAL IVP SCH (01:45)
[2021-06-06 01:47] LABS: Basophils # 0.1 K/mcL (0.0-0.2); Basophils % 0.6 %; Eosinophils # 0.1 K/mcL (0.0-0.6); Eosinophils % 0.5 %; Hematocrit 44.6 % (37.5-50.1); Immature Platelets 5.7 % (1.1-6.1); Lymphocytes # 1.7 K/mcL (0.6-4.6); Mean Corpuscular HGB Conc 29.1 g/dL (31.6-35.5); Mean Corpuscular Volume 96.1 fL (83.0-100.0); Mean Platelet Volume 13.7 fL (9.4-12.4); Monocytes # 0.8 K/mcL (0.0-1.3); Monocytes % 6.2 %; Platelet Count 248 K/mcL (140-400); Red Cell Distribution Width 17.3 % (11.5-14.5); Segmented Neutrophils % 78.7 %; White Blood Count 12.7 K/mcL (4.3-11.1)
[2021-06-06 01:54] LABS: INR 1.1; Prothrombin Time 12.6 Seconds (9.4-12.1)
[2021-06-06 01:58] LABS: BUN/Creatinine Ratio 78 (6-26); Blood Urea Nitrogen 101 mg/dL (8-23); Calcium 10.4 mg/dL (8.6-10.3); Carbon Dioxide 28 mEq/L (23-29); Chloride 116 mEq/L (98-107); Glucose 350 mg/dL (70-105); Osmolality,Calculated 370 (280-300); Sodium 157 mEq/L (136-145); eGFR For African Americans > 60 (> 60); eGFR For Non-African Americans 56 (> 60)
[2021-06-06 02:00] LABS: C-Reactive Protein 83 mg/L (Less than 10); Lactate Dehydrogenase 180 Units/L (140-271)
[2021-06-06 02:15] LABS: Ferritin 257 ng/mL (20-250)
[2021-06-06] MEDS ORDERED: D5% in Water 1,000 ML IVC PRN ×2 (02:43→22:08)
[2021-06-06] MEDS ORDERED: Dextrose 4 GM Chewable Tablets PO PRN ×4 (02:43→22:08)
[2021-06-06] MEDS ORDERED: *HR* Dextrose 50 % in Water (Syg) 50 ML SYRINGE IVP PRN ×2 (02:43→22:08)
[2021-06-06 02:45] LABS: D-Dimer 2210 ng/mLFEU (0-500)
[2021-06-06 02:56] LABS: Fibrinogen 880 mg/dL (169-393)
[2021-06-06] MEDS ORDERED: Insulin LISPRO 300 UNITS/3 ML VIAL SUBQ SCH ×2 (06:00→22:15)
[2021-06-06] MEDS: *HR* Heparin 5,000 UNIT/ML VIAL SQ SCH ×3 (06:54→22:05)
[2021-06-06 08:59] LABS: BUN/Creatinine Ratio 73 (6-26); Blood Urea Nitrogen 96 mg/dL (8-23); Calcium 9.3 mg/dL (8.6-10.3); Carbon Dioxide 31 mEq/L (23-29); Chloride 116 mEq/L (98-107); Glucose 613 mg/dL (70-105); Osmolality,Calculated 384 (280-300); Potassium 4.3 mEq/L (3.5-5.1); Sodium 158 mEq/L (136-145); eGFR For African Americans > 60 (> 60); eGFR For Non-African Americans 56 (> 60)
[2021-06-06] MEDS: Piperacillin/Tazobactam 3.375 GM in 0.9 % Sodium Chloride Mini Bag 100 ML IVPB SCH ×2 (09:21→17:01)
[2021-06-06] MEDS ORDERED: Insulin Human Regular 5 UNIT in 0.9 % Sodium Chloride 10 ML IV ONE (09:45)
[2021-06-06 10:02] LABS: ABG Base Excess 6 mEq/L (-2 to 3); ABG HCO3 32 mEq/L (21-27); ABG Oxygen Saturation 99 % (95-98); ABG PCO2 53 mmHg (35-45); ABG PH 7.39 pH Units (7.32-7.45); ABG PO2 127 mmHg (85-104); ABG TCO2 33 mEq/L (20-26)
[2021-06-06] MEDS: D5% in Water 1,000 ML IVC SCH ×2 (10:12→23:35)
[2021-06-06] MEDS ORDERED: Melatonin 3 MG TABLET GTUBE PRN (10:15)
[2021-06-06] MEDS: Insulin LISPRO 300 UNITS/3 ML VIAL SUBQ SCH ×2 (11:58→17:02)
[2021-06-06] MEDS ORDERED: Silver Sulfadiazine 50 GM TUBE TP SCH (15:00)
[2021-06-06] MEDS ORDERED: Silver Sulfadiazine 50 GM TUBE TP ONE (15:00)
[2021-06-06 15:50] LABS: BUN/Creatinine Ratio 72 (6-26); Blood Urea Nitrogen 89 mg/dL (8-23); Calcium 9.4 mg/dL (8.6-10.3); Carbon Dioxide 30 mEq/L (23-29); Chloride 118 mEq/L (98-107); Glucose 341 mg/dL (70-105); Osmolality,Calculated 365 (280-300); Potassium 3.9 mEq/L (3.5-5.1); Sodium 157 mEq/L (136-145); eGFR For African Americans > 60 (> 60); eGFR For Non-African Americans 60 (> 60)
[2021-06-06] MEDS ORDERED: Insulin DETEMIR 100 UNIT/ML X5UNITS SUBQ SCH (21:00)
[2021-06-06] MEDS: Insulin DETEMIR 100 UNIT/ML X5UNITS SUBQ SCH (22:06)
[2021-06-07] MEDS: Piperacillin/Tazobactam 3.375 GM in 0.9 % Sodium Chloride Mini Bag 100 ML IVPB SCH ×4 (00:23→23:59)
[2021-06-07] MEDS: Insulin LISPRO 300 UNITS/3 ML VIAL SUBQ SCH ×6 (00:25→18:16)
[2021-06-07] MEDS: *HR* Heparin 5,000 UNIT/ML VIAL SQ SCH (06:21)
[2021-06-07] MEDS: Dexamethasone Sodium Phos/PF 10 MG/ML VIAL IVP SCH (08:00)
[2021-06-07] MEDS: Lactobacillus 1 EACH CAP.SPRINK GTUBE SCH (08:01)
[2021-06-07] MEDS: Insulin DETEMIR 100 UNIT/ML X5UNITS SUBQ SCH ×3 (08:12→23:13)
[2021-06-07 08:15] LABS: Red Cell Distribution Width 16.5 % (11.5-14.5)
[2021-06-07 08:17] LABS: Hematocrit 33.9 % (37.5-50.1); Hemoglobin 9.9 g/dL (12.9-16.9); Immature Platelets 6.8 % (1.1-6.1); Mean Corpuscular HGB Conc 29.2 g/dL (31.6-35.5); Mean Corpuscular Hemoglobin 28.3 pg (28.0-33.3); Mean Corpuscular Volume 96.9 fL (83.0-100.0); Mean Platelet Volume 13.6 fL (9.4-12.4); Red Blood Count 3.5 M/mcL (4.19-5.50); White Blood Count 12.8 K/mcL (4.3-11.1)
[2021-06-07 08:36] LABS: BUN/Creatinine Ratio 70 (6-26); Blood Urea Nitrogen 80 mg/dL (8-23); Calcium 8.3 mg/dL (8.6-10.3); Carbon Dioxide 31 mEq/L (23-29); Chloride 113 mEq/L (98-107); Glucose 523 mg/dL (70-105); Magnesium 2.5 mg/dL (1.6-2.6); Osmolality,Calculated 364 (280-300); Potassium 3.4 mEq/L (3.5-5.1); Sodium 153 mEq/L (136-145); eGFR For African Americans > 60 (> 60); eGFR For Non-African Americans > 60 (> 60)
[2021-06-07] MEDS: Apixaban 5 MG TABLET GTUBE SCH (22:39)
[2021-06-08] MEDS: Insulin LISPRO 300 UNITS/3 ML VIAL SUBQ SCH ×4 (02:25→17:21)
[2021-06-08 05:45] LABS: Basophils % 0.2 %
[2021-06-08 05:47] LABS: Eosinophils % 0.4 %; Hemoglobin 9.8 g/dL (12.9-16.9); Immature Granulocytes % 0.7 % (0-4); Immature Platelets 7.7 % (1.1-6.1); Lymphocytes # 1.7 K/mcL (0.6-4.6); Lymphocytes % 15.9 %; Mean Corpuscular HGB Conc 28.8 g/dL (31.6-35.5); Mean Corpuscular Hemoglobin 27.7 pg (28.0-33.3); Mean Platelet Volume 13.3 fL (9.4-12.4); Monocytes # 0.8 K/mcL (0.0-1.3); Monocytes % 7.6 %; Neutrophils # 7.8 K/mcL (1.6-8.9); Platelet Count 191 K/mcL (140-400); Red Blood Count 3.54 M/mcL (4.19-5.50); Red Cell Distribution Width 16.2 % (11.5-14.5); Segmented Neutrophils % 75.2 %; White Blood Count 10.4 K/mcL (4.3-11.1)
[2021-06-08 06:03] LABS: BUN/Creatinine Ratio 82 (6-26); Blood Urea Nitrogen 68 mg/dL (8-23); Calcium 8.5 mg/dL (8.6-10.3); Carbon Dioxide 29 mEq/L (23-29); Chloride 116 mEq/L (98-107); Glucose 224 mg/dL (70-105); Magnesium 2.6 mg/dL (1.6-2.6); Osmolality,Calculated 343 (280-300); Potassium 4.1 mEq/L (3.5-5.1); Sodium 153 mEq/L (136-145); eGFR For African Americans > 60 (> 60); eGFR For Non-African Americans > 60 (> 60)
[2021-06-08] MEDS: Dexamethasone Sodium Phos/PF 10 MG/ML VIAL IVP SCH (09:54)
[2021-06-08] MEDS: Lactobacillus 1 EACH CAP.SPRINK GTUBE SCH (09:54)
[2021-06-08] MEDS: Apixaban 5 MG TABLET GTUBE SCH ×2 (09:55→20:11)
[2021-06-08] MEDS: Piperacillin/Tazobactam 3.375 GM in 0.9 % Sodium Chloride Mini Bag 100 ML IVPB SCH ×2 (10:04→17:20)
[2021-06-08] MEDS: Insulin DETEMIR 100 UNIT/ML X5UNITS SUBQ SCH ×2 (11:55→20:12)
[2021-06-09] MEDS: Insulin LISPRO 300 UNITS/3 ML VIAL SUBQ SCH ×4 (01:04→17:19)
[2021-06-09 01:42] LABS: Basophils % 0.2 %; Immature Granulocytes % 0.7 % (0-4)
[2021-06-09 01:44] LABS: Eosinophils # 0.1 K/mcL (0.0-0.6); Eosinophils % 0.5 %; Hematocrit 34.1 % (37.5-50.1); Hemoglobin 9.9 g/dL (12.9-16.9); Immature Platelets 6.7 % (1.1-6.1); Lymphocytes # 1.5 K/mcL (0.6-4.6); Lymphocytes % 14.9 %; Mean Corpuscular Hemoglobin 27.7 pg (28.0-33.3); Mean Corpuscular Volume 95.3 fL (83.0-100.0); Mean Platelet Volume 13.4 fL (9.4-12.4); Monocytes # 0.7 K/mcL (0.0-1.3); Monocytes % 6.7 %; Neutrophils # 7.5 K/mcL (1.6-8.9); Platelet Count 189 K/mcL (140-400); Red Blood Count 3.58 M/mcL (4.19-5.50); Red Cell Distribution Width 15.8 % (11.5-14.5); White Blood Count 9.7 K/mcL (4.3-11.1)
[2021-06-09 02:00] LABS: BUN/Creatinine Ratio 89 (6-26); Blood Urea Nitrogen 71 mg/dL (8-23); Calcium 8.5 mg/dL (8.6-10.3); Carbon Dioxide 30 mEq/L (23-29); Chloride 113 mEq/L (98-107); Glucose 253 mg/dL (70-105); Magnesium 2.3 mg/dL (1.6-2.6); Osmolality,Calculated 339 (280-300); Phosphorous 2.8 mg/dL (2.7-4.5); Potassium 4.6 mEq/L (3.5-5.1); Sodium 150 mEq/L (136-145); eGFR For African Americans > 60 (> 60); eGFR For Non-African Americans > 60 (> 60)
[2021-06-09] MEDS: Piperacillin/Tazobactam 3.375 GM in 0.9 % Sodium Chloride Mini Bag 100 ML IVPB SCH ×3 (02:48→15:04)
[2021-06-09] MEDS: Dexamethasone Sodium Phos/PF 10 MG/ML VIAL IVP SCH (08:37)
[2021-06-09] MEDS: Lactobacillus 1 EACH CAP.SPRINK GTUBE SCH (08:37)
[2021-06-09] MEDS: Apixaban 5 MG TABLET GTUBE SCH ×2 (08:37→20:57)
[2021-06-09] MEDS: Insulin DETEMIR 100 UNIT/ML X5UNITS SUBQ SCH ×2 (09:01→20:59)
[2021-06-10] MEDS: Piperacillin/Tazobactam 3.375 GM in 0.9 % Sodium Chloride Mini Bag 100 ML IVPB SCH ×3 (00:12→16:37)
[2021-06-10] MEDS: Insulin LISPRO 300 UNITS/3 ML VIAL SUBQ SCH ×4 (00:15→17:32)
[2021-06-10 01:49] LABS: Hematocrit 33.7 % (37.5-50.1)
[2021-06-10 02:57] LABS: BUN/Creatinine Ratio 73 (6-26); Blood Urea Nitrogen 58 mg/dL (8-23); Calcium 8.8 mg/dL (8.6-10.3); Carbon Dioxide 24 mEq/L (23-29); Chloride 114 mEq/L (98-107); Glucose 299 mg/dL (70-105); Magnesium 2.4 mg/dL (1.6-2.6); Osmolality,Calculated 337 (280-300); Phosphorous 2.6 mg/dL (2.7-4.5); Sodium 150 mEq/L (136-145); eGFR For African Americans > 60 (> 60); eGFR For Non-African Americans > 60 (> 60)
[2021-06-10] MEDS: Lactobacillus 1 EACH CAP.SPRINK GTUBE SCH (08:55)
[2021-06-10] MEDS: Insulin DETEMIR 100 UNIT/ML X5UNITS SUBQ SCH ×2 (08:55→20:47)
[2021-06-10] MEDS: Dexamethasone Sodium Phos/PF 10 MG/ML VIAL IVP SCH (08:56)
[2021-06-10] MEDS: Apixaban 5 MG TABLET GTUBE SCH ×2 (08:56→20:46)
[2021-06-11] MEDS: Piperacillin/Tazobactam 3.375 GM in 0.9 % Sodium Chloride Mini Bag 100 ML IVPB SCH ×2 (00:34→10:42)
[2021-06-11] MEDS: Insulin LISPRO 300 UNITS/3 ML VIAL SUBQ SCH ×4 (00:35→17:51)
[2021-06-11] MEDS: Apixaban 5 MG TABLET GTUBE SCH ×2 (10:25→21:38)
[2021-06-11] MEDS: Lactobacillus 1 EACH CAP.SPRINK GTUBE SCH (10:25)
[2021-06-11] MEDS: Insulin DETEMIR 100 UNIT/ML X5UNITS SUBQ SCH ×2 (10:33→21:42)
[2021-06-11] MEDS ORDERED: 0.9 % Sodium Chloride 250 ML IVC ONE (12:59)
[2021-06-11 15:45] LABS: BUN/Creatinine Ratio 75 (6-26); Blood Urea Nitrogen 58 mg/dL (8-23); Calcium 8.9 mg/dL (8.6-10.3); Carbon Dioxide 28 mEq/L (23-29); Chloride 108 mEq/L (98-107); Glucose 275 mg/dL (70-105); Osmolality,Calculated 322 (280-300); Potassium 5.9 mEq/L (3.5-5.1); Sodium 143 mEq/L (136-145); eGFR For African Americans > 60 (> 60); eGFR For Non-African Americans > 60 (> 60)
[2021-06-11] MEDS ORDERED: SODIUM ZIRCONIUM CYCLOSILICATE 5 GM POWD.PACK PO ONE (16:30)
[2021-06-11] MEDS: Meropenem 1,000 MG in 0.9 % Sodium Chloride 20 ML IVP SCH (17:51)
[2021-06-11] MEDS: levETIRAcetam 500 MG/5 ML UDC GTUBE SCH (21:38)
[2021-06-12] MEDS: Insulin LISPRO 300 UNITS/3 ML VIAL SUBQ SCH ×4 (02:07→17:44)
[2021-06-12] MEDS: Meropenem 1,000 MG in 0.9 % Sodium Chloride 20 ML IVP SCH ×3 (03:18→17:43)
[2021-06-12 04:08] LABS: Basophils # 0.1 K/mcL (0.0-0.2); Basophils % 0.8 %; Eosinophils # 0.3 K/mcL (0.0-0.6); Eosinophils % 2.5 %; Hemoglobin 10.4 g/dL (12.9-16.9); Immature Granulocytes % 2.6 % (0-4); Lymphocytes # 2.1 K/mcL (0.6-4.6); Mean Corpuscular HGB Conc 29.7 g/dL (31.6-35.5); Mean Corpuscular Hemoglobin 28.4 pg (28.0-33.3); Mean Corpuscular Volume 95.6 fL (83.0-100.0); Monocytes # 0.9 K/mcL (0.0-1.3); Monocytes % 7.4 %; Platelet Count 259 K/mcL (140-400); Red Blood Count 3.66 M/mcL (4.19-5.50); Red Cell Distribution Width 16.7 % (11.5-14.5); Segmented Neutrophils % 68.7 %; White Blood Count 11.7 K/mcL (4.3-11.1)
[2021-06-12 04:19] LABS: Albumin 2.9 g/dL (3.5-5.7); Albumin/Globulin Ratio 0.6 (1.1-2.2); Bilirubin,Indirect 0.2 mg/dL (0.0-1.0); Bilirubin,Total 0.2 mg/dL (0.3-1.0); Globulin 4.6 g/dL (2.4-3.5); Total Protein 7.5 g/dL (6.4-8.9)
[2021-06-12 04:20] LABS: BUN/Creatinine Ratio 89 (6-26); Blood Urea Nitrogen 54 mg/dL (8-23); Calcium 7.7 mg/dL (8.6-10.3); Carbon Dioxide 24 mEq/L (23-29); Chloride 114 mEq/L (98-107); Glucose 95 mg/dL (70-105); Magnesium 1.6 mg/dL (1.6-2.6); Osmolality,Calculated 311 (280-300); Phosphorous 3.5 mg/dL (2.7-4.5); Potassium 4.9 mEq/L (3.5-5.1); Sodium 143 mEq/L (136-145); eGFR For African Americans > 60 (> 60); eGFR For Non-African Americans > 60 (> 60)
[2021-06-12] MEDS ORDERED: Furosemide 40 MG/4 ML VIAL IVP ONE (08:39)
[2021-06-12] MEDS: Apixaban 5 MG TABLET GTUBE SCH ×2 (08:58→21:18)
[2021-06-12] MEDS: Lactobacillus 1 EACH CAP.SPRINK GTUBE SCH (08:58)
[2021-06-12] MEDS: Calcium Gluconate 1gm/50mL 1 GM/50 ML BAG IVPB SCH ×2 (08:59→10:00)
[2021-06-12] MEDS: levETIRAcetam 500 MG/5 ML UDC GTUBE SCH ×2 (09:01→21:18)
[2021-06-12] MEDS: Insulin DETEMIR 100 UNIT/ML X5UNITS SUBQ SCH ×2 (09:01→21:20)
[2021-06-12] MEDS ORDERED: Remdesivir 200 MG in 0.9 % Sodium Chloride 100 ML IVPB ONE (12:30)
[2021-06-13] MEDS: Insulin LISPRO 300 UNITS/3 ML VIAL SUBQ SCH ×4 (00:36→17:58)
[2021-06-13] MEDS: Meropenem 1,000 MG in 0.9 % Sodium Chloride 20 ML IVP SCH ×3 (02:41→17:58)
[2021-06-13 04:42] LABS: Basophils # 0.1 K/mcL (0.0-0.2); Basophils % 0.6 %; Eosinophils # 0.1 K/mcL (0.0-0.6); Eosinophils % 0.7 %; Hematocrit 36.3 % (37.5-50.1); Hemoglobin 11.2 g/dL (12.9-16.9); Immature Granulocytes % 2.4 % (0-4); Lymphocytes # 2.3 K/mcL (0.6-4.6); Lymphocytes % 14.7 %; Mean Corpuscular HGB Conc 30.9 g/dL (31.6-35.5); Mean Corpuscular Hemoglobin 28.7 pg (28.0-33.3); Mean Corpuscular Volume 93.1 fL (83.0-100.0); Mean Platelet Volume 12.7 fL (9.4-12.4); Monocytes # 1.2 K/mcL (0.0-1.3); Monocytes % 7.6 %; Neutrophils # 11.4 K/mcL (1.6-8.9); Platelet Count 314 K/mcL (140-400); Red Cell Distribution Width 16.8 % (11.5-14.5); White Blood Count 15.5 K/mcL (4.3-11.1)
[2021-06-13 04:49] LABS: INR 1.3; Prothrombin Time 14.8 Seconds (9.4-12.1)
[2021-06-13 07:21] LABS: Alanine Aminotransferase 34 Units/L (7-52); Albumin 3.4 g/dL (3.5-5.7); Albumin/Globulin Ratio 0.8 (1.1-2.2); Alkaline Phosphatase 92 Units/L (34-104); Aspartate Amino Transferase 31 Units/L (13-39); BUN/Creatinine Ratio 79 (6-26); Bilirubin,Total 0.2 mg/dL (0.3-1.0); Blood Urea Nitrogen 66 mg/dL (8-23); Calcium 9.8 mg/dL (8.6-10.3); Carbon Dioxide 24 mEq/L (23-29); Chloride 107 mEq/L (98-107); Globulin 4.3 g/dL (2.4-3.5); Glucose 138 mg/dL (70-105); Magnesium 2.3 mg/dL (1.6-2.6); Osmolality,Calculated 309 (280-300); Phosphorous 4.3 mg/dL (2.7-4.5); Potassium 6.6 mEq/L (3.5-5.1); Sodium 139 mEq/L (136-145); Total Protein 7.7 g/dL (6.4-8.9); eGFR For African Americans > 60 (> 60); eGFR For Non-African Americans > 60 (> 60)
[2021-06-13] MEDS ORDERED: Calcium Gluconate 1gm/50mL 1 GM/50 ML BAG IVPB ONE (07:26)
[2021-06-13] MEDS ORDERED: Insulin Human Regular 10 UNIT in 0.9 % Sodium Chloride 10 ML IV ONE ×2 (07:26→14:11)
[2021-06-13] MEDS ORDERED: *HR* Dextrose 50 % in Water (Syg) 50 ML SYRINGE IVP ONE ×2 (07:27→14:11)
[2021-06-13] MEDS ORDERED: Furosemide 20 MG/2 ML VIAL IVP ONE (07:27)
[2021-06-13] MEDS: levETIRAcetam 500 MG/5 ML UDC GTUBE SCH ×2 (08:45→21:14)
[2021-06-13] MEDS: Lactobacillus 1 EACH CAP.SPRINK GTUBE SCH (08:46)
[2021-06-13] MEDS: Apixaban 5 MG TABLET GTUBE SCH ×2 (08:46→21:14)
[2021-06-13] MEDS: SODIUM ZIRCONIUM CYCLOSILICATE 5 GM POWD.PACK PO SCH ×3 (08:47→21:14)
[2021-06-13] MEDS: Insulin DETEMIR 100 UNIT/ML X5UNITS SUBQ SCH ×2 (09:21→21:15)
[2021-06-13] MEDS: Artificial Tears SOLN 15 ML BOTTLE BOTH EYES SCH ×3 (12:01→17:59)
[2021-06-13] MEDS: Saline Nasal Spray 44 ML BOTTLE NS SCH ×3 (12:01→17:59)
[2021-06-13] MEDS: Saliva Stimulant 44.3ml BOTTLE PO SCH ×3 (12:01→17:59)
[2021-06-13] MEDS: Remdesivir 100 MG in 0.9 % Sodium Chloride 100 ML IVPB SCH (12:04)
[2021-06-13] MEDS ORDERED: Calcium Gluconate 1gm/50mL 1 GM/50 ML BAG IVPB PRN (14:11)
[2021-06-13] MEDS: Chlorhexidine Rinse 15 ML MOUTHWASH MM SCH (21:05)
[2021-06-14] MEDS: Saliva Stimulant 44.3ml BOTTLE PO SCH ×7 (00:39→22:55)
[2021-06-14] MEDS: Artificial Tears SOLN 15 ML BOTTLE BOTH EYES SCH ×7 (00:39→22:55)
[2021-06-14] MEDS: Saline Nasal Spray 44 ML BOTTLE NS SCH ×7 (00:39→22:55)
[2021-06-14] MEDS: Insulin LISPRO 300 UNITS/3 ML VIAL SUBQ SCH ×4 (00:40→18:13)
[2021-06-14] MEDS: Meropenem 1,000 MG in 0.9 % Sodium Chloride 20 ML IVP SCH ×3 (03:45→18:14)
[2021-06-14 04:29] LABS: Alanine Aminotransferase 33 Units/L (7-52); Albumin 3.3 g/dL (3.5-5.7); Albumin/Globulin Ratio 0.8 (1.1-2.2); Alkaline Phosphatase 98 Units/L (34-104); Aspartate Amino Transferase 27 Units/L (13-39); BUN/Creatinine Ratio 75 (6-26); Bilirubin,Total 0.2 mg/dL (0.3-1.0); Blood Urea Nitrogen 68 mg/dL (8-23); Calcium 9.8 mg/dL (8.6-10.3); Carbon Dioxide 28 mEq/L (23-29); Chloride 103 mEq/L (98-107); Globulin 4.3 g/dL (2.4-3.5); Glucose 184 mg/dL (70-105); Magnesium 2.1 mg/dL (1.6-2.6); Osmolality,Calculated 313 (280-300); Phosphorous 4.1 mg/dL (2.7-4.5); Potassium 5.1 mEq/L (3.5-5.1); Sodium 139 mEq/L (136-145); Total Protein 7.6 g/dL (6.4-8.9); eGFR For African Americans > 60 (> 60); eGFR For Non-African Americans > 60 (> 60)
[2021-06-14 04:30] LABS: % Iron Saturation 19 % (20-55); INR 1.5; Iron 61 mcg/dL (65-175); Prothrombin Time 16.2 Seconds (9.4-12.1); Transferrin 232 mg/dL (203-362)
[2021-06-14 04:49] LABS: Ferritin 238 ng/mL (20-250)
[2021-06-14 04:59] LABS: Folate > 22.3 ng/mL (3.0-16.0); Vitamin B12 1463 pg/mL (250-1100)
[2021-06-14] MEDS: Multivit/Ca/Min/Fe/FA 1 TAB TABLET PO SCH (08:51)
[2021-06-14] MEDS: Apixaban 5 MG TABLET GTUBE SCH ×2 (08:52→20:05)
[2021-06-14] MEDS: levETIRAcetam 500 MG/5 ML UDC GTUBE SCH ×2 (08:52→20:04)
[2021-06-14] MEDS: Lactobacillus 1 EACH CAP.SPRINK GTUBE SCH (08:52)
[2021-06-14] MEDS: Insulin DETEMIR 100 UNIT/ML X5UNITS SUBQ SCH ×2 (08:52→20:05)
[2021-06-14] MEDS: Chlorhexidine Rinse 15 ML MOUTHWASH MM SCH ×2 (08:53→20:25)
[2021-06-14] MEDS: Remdesivir 100 MG in 0.9 % Sodium Chloride 100 ML IVPB SCH (14:05)
[2021-06-15] MEDS: Insulin LISPRO 300 UNITS/3 ML VIAL SUBQ SCH ×5 (00:55→23:47)
[2021-06-15] MEDS: Meropenem 1,000 MG in 0.9 % Sodium Chloride 20 ML IVP SCH ×3 (04:07→18:22)
[2021-06-15] MEDS: Saline Nasal Spray 44 ML BOTTLE NS SCH ×6 (04:08→22:54)
[2021-06-15] MEDS: Artificial Tears SOLN 15 ML BOTTLE BOTH EYES SCH ×6 (04:08→22:54)
[2021-06-15] MEDS: Saliva Stimulant 44.3ml BOTTLE PO SCH ×6 (04:09→22:54)
[2021-06-15 04:31] LABS: Basophils # 0.1 K/mcL (0.0-0.2); Basophils % 0.5 %; Eosinophils % 0.3 %; Hematocrit 36.7 % (37.5-50.1); Hemoglobin 11.2 g/dL (12.9-16.9); Immature Granulocytes % 1.9 % (0-4); Lymphocytes # 2.5 K/mcL (0.6-4.6); Lymphocytes % 17.2 %; Mean Corpuscular HGB Conc 30.5 g/dL (31.6-35.5); Mean Corpuscular Hemoglobin 28.1 pg (28.0-33.3); Mean Platelet Volume 12.4 fL (9.4-12.4); Monocytes # 1.2 K/mcL (0.0-1.3); Monocytes % 8.1 %; Neutrophils # 10.5 K/mcL (1.6-8.9); Platelet Count 323 K/mcL (140-400); Red Blood Count 3.99 M/mcL (4.19-5.50); Red Cell Distribution Width 17.5 % (11.5-14.5); White Blood Count 14.5 K/mcL (4.3-11.1)
[2021-06-15 04:42] LABS: INR 1.5; Prothrombin Time 16.2 Seconds (9.4-12.1)
[2021-06-15 04:55] LABS: Alanine Aminotransferase 41 Units/L (7-52); Albumin 3.2 g/dL (3.5-5.7); Albumin/Globulin Ratio 0.7 (1.1-2.2); Alkaline Phosphatase 103 Units/L (34-104); Aspartate Amino Transferase 32 Units/L (13-39); BUN/Creatinine Ratio 79 (6-26); Bilirubin,Total 0.3 mg/dL (0.3-1.0); Blood Urea Nitrogen 75 mg/dL (8-23); Calcium 9.3 mg/dL (8.6-10.3); Carbon Dioxide 25 mEq/L (23-29); Chloride 104 mEq/L (98-107); Globulin 4.4 g/dL (2.4-3.5); Glucose 197 mg/dL (70-105); Magnesium 2.1 mg/dL (1.6-2.6); Osmolality,Calculated 314 (280-300); Potassium 5.3 mEq/L (3.5-5.1); Sodium 138 mEq/L (136-145); Total Protein 7.6 g/dL (6.4-8.9); eGFR For African Americans > 60 (> 60); eGFR For Non-African Americans > 60 (> 60)
[2021-06-15] MEDS: Lactobacillus 1 EACH CAP.SPRINK GTUBE SCH (10:06)
[2021-06-15] MEDS: Multivit/Ca/Min/Fe/FA 1 TAB TABLET PO SCH (10:06)
[2021-06-15] MEDS: Apixaban 5 MG TABLET GTUBE SCH ×2 (10:06→21:47)
[2021-06-15] MEDS: Chlorhexidine Rinse 15 ML MOUTHWASH MM SCH ×2 (10:10→21:42)
[2021-06-15] MEDS: levETIRAcetam 500 MG/5 ML UDC GTUBE SCH ×2 (10:12→21:47)
[2021-06-15] MEDS: Insulin DETEMIR 100 UNIT/ML X5UNITS SUBQ SCH ×2 (10:12→21:53)
[2021-06-15] MEDS: Remdesivir 100 MG in 0.9 % Sodium Chloride 100 ML IVPB SCH (13:24)
[2021-06-16] MEDS: Meropenem 1,000 MG in 0.9 % Sodium Chloride 20 ML IVP SCH (04:13)
[2021-06-16] MEDS: Saliva Stimulant 44.3ml BOTTLE PO SCH ×5 (04:14→21:36)
[2021-06-16] MEDS: Artificial Tears SOLN 15 ML BOTTLE BOTH EYES SCH ×5 (04:14→21:36)
[2021-06-16] MEDS: Saline Nasal Spray 44 ML BOTTLE NS SCH ×5 (04:15→21:36)
[2021-06-16 04:46] LABS: Hematocrit 36.9 % (37.5-50.1); Hemoglobin 11.5 g/dL (12.9-16.9); Mean Corpuscular HGB Conc 31.2 g/dL (31.6-35.5); Mean Corpuscular Hemoglobin 28.5 pg (28.0-33.3); Mean Corpuscular Volume 91.3 fL (83.0-100.0); Mean Platelet Volume 12.8 fL (9.4-12.4); Platelet Count 342 K/mcL (140-400); Red Blood Count 4.04 M/mcL (4.19-5.50); Red Cell Distribution Width 17.6 % (11.5-14.5); Segmented Neutrophils % 75.6 %; White Blood Count 17.5 K/mcL (4.3-11.1)
[2021-06-16 04:47] LABS: Basophils # 0.1 K/mcL (0.0-0.2); Basophils % 0.4 %; Eosinophils % 0.1 %; Immature Granulocytes % 1.3 % (0-4); Lymphocytes # 2.4 K/mcL (0.6-4.6); Lymphocytes % 13.6 %; Monocytes # 1.6 K/mcL (0.0-1.3); Neutrophils # 13.2 K/mcL (1.6-8.9)
[2021-06-16 04:56] LABS: INR 1.5; Prothrombin Time 17.1 Seconds (9.4-12.1)
[2021-06-16 05:00] LABS: Alanine Aminotransferase 51 Units/L (7-52); Albumin 3.3 g/dL (3.5-5.7); Albumin/Globulin Ratio 0.8 (1.1-2.2); Alkaline Phosphatase 109 Units/L (34-104); Aspartate Amino Transferase 38 Units/L (13-39); BUN/Creatinine Ratio 95 (6-26); Bilirubin,Total 0.2 mg/dL (0.3-1.0); Blood Urea Nitrogen 90 mg/dL (8-23); Calcium 9.3 mg/dL (8.6-10.3); Carbon Dioxide 26 mEq/L (23-29); Chloride 106 mEq/L (98-107); Globulin 4.4 g/dL (2.4-3.5); Glucose 246 mg/dL (70-105); Osmolality,Calculated 324 (280-300); Potassium 5.5 mEq/L (3.5-5.1); Sodium 139 mEq/L (136-145); Total Protein 7.7 g/dL (6.4-8.9); eGFR For African Americans > 60 (> 60); eGFR For Non-African Americans > 60 (> 60)
[2021-06-16] MEDS: Insulin LISPRO 300 UNITS/3 ML VIAL SUBQ SCH ×3 (06:10→17:27)
[2021-06-16] MEDS: SODIUM ZIRCONIUM CYCLOSILICATE 5 GM POWD.PACK PO SCH (09:40)
[2021-06-16] MEDS: Chlorhexidine Rinse 15 ML MOUTHWASH MM SCH ×2 (09:40→21:37)
[2021-06-16] MEDS: levETIRAcetam 500 MG/5 ML UDC GTUBE SCH ×2 (09:40→21:38)
[2021-06-16] MEDS: Lactobacillus 1 EACH CAP.SPRINK GTUBE SCH (09:41)
[2021-06-16] MEDS: Multivit/Ca/Min/Fe/FA 1 TAB TABLET PO SCH (09:41)
[2021-06-16] MEDS: Apixaban 5 MG TABLET GTUBE SCH ×2 (09:42→21:38)
[2021-06-16] MEDS: Insulin DETEMIR 100 UNIT/ML X5UNITS SUBQ SCH ×2 (09:42→21:38)
[2021-06-16] MEDS: Remdesivir 100 MG in 0.9 % Sodium Chloride 100 ML IVPB SCH (13:17)
[2021-06-17] MEDS: Saline Nasal Spray 44 ML BOTTLE NS SCH ×3 (01:01→08:07)
[2021-06-17] MEDS: Artificial Tears SOLN 15 ML BOTTLE BOTH EYES SCH ×3 (01:01→08:07)
[2021-06-17] MEDS: Saliva Stimulant 44.3ml BOTTLE PO SCH ×3 (01:01→08:07)
[2021-06-17] MEDS: Insulin LISPRO 300 UNITS/3 ML VIAL SUBQ SCH ×2 (01:01→06:01)
[2021-06-17 01:46] LABS: Basophils % 0.2 %; Red Cell Distribution Width 17.7 % (11.5-14.5)
[2021-06-17 01:49] LABS: Hematocrit 37.6 % (37.5-50.1); Hemoglobin 11.9 g/dL (12.9-16.9); Immature Granulocytes % 1.2 % (0-4); Immature Platelets 8.8 % (1.1-6.1); Lymphocytes # 1.7 K/mcL (0.6-4.6); Mean Corpuscular HGB Conc 31.6 g/dL (31.6-35.5); Mean Corpuscular Hemoglobin 28.6 pg (28.0-33.3); Mean Corpuscular Volume 90.4 fL (83.0-100.0); Mean Platelet Volume 13.3 fL (9.4-12.4); Monocytes % 5.6 %; Platelet Count 336 K/mcL (140-400); Red Blood Count 4.16 M/mcL (4.19-5.50); White Blood Count 18.5 K/mcL (4.3-11.1)
[2021-06-17 01:52] LABS: INR 1.8; Prothrombin Time 19.9 Seconds (9.4-12.1)
[2021-06-17 01:56] LABS: Neutrophils # 15.5 K/mcL (1.6-8.9)
[2021-06-17 02:02] LABS: Alanine Aminotransferase 62 Units/L (7-52); Albumin 3.3 g/dL (3.5-5.7); Albumin/Globulin Ratio 0.7 (1.1-2.2); Alkaline Phosphatase 132 Units/L (34-104); Aspartate Amino Transferase 47 Units/L (13-39); BUN/Creatinine Ratio 112 (6-26); Bilirubin,Total 0.3 mg/dL (0.3-1.0); Blood Urea Nitrogen 95 mg/dL (8-23); Calcium 9.1 mg/dL (8.6-10.3); Carbon Dioxide 23 mEq/L (23-29); Chloride 103 mEq/L (98-107); Globulin 4.5 g/dL (2.4-3.5); Glucose 345 mg/dL (70-105); Osmolality,Calculated 329 (280-300); Potassium 5.4 mEq/L (3.5-5.1); Sodium 138 mEq/L (136-145); Total Protein 7.8 g/dL (6.4-8.9); eGFR For African Americans > 60 (> 60); eGFR For Non-African Americans > 60 (> 60)
[2021-06-17] MEDS: Lactobacillus 1 EACH CAP.SPRINK GTUBE SCH (08:07)
[2021-06-17] MEDS: Apixaban 5 MG TABLET GTUBE SCH (08:07)
[2021-06-17] MEDS: levETIRAcetam 500 MG/5 ML UDC GTUBE SCH (08:08)
[2021-06-17] MEDS: Chlorhexidine Rinse 15 ML MOUTHWASH MM SCH (08:08)
[2021-06-17] MEDS: Insulin DETEMIR 100 UNIT/ML X5UNITS SUBQ SCH (08:08)
[2021-06-17] MEDS: SODIUM ZIRCONIUM CYCLOSILICATE 5 GM POWD.PACK PO SCH (08:09)
[2021-06-17] MEDS ORDERED: Multivitamin Liquid 15 ML UDC GTUBE SCH (09:00)
[2021-06-17 12:09] VITALS: BP 105/65; PULSE 104; TEMP 98.1; O2SAT 95
== END 2021-06-17 12:13 | DRG 720 ==
LOC: 2ANU → SUATTDRO 06-06 00:08 → 2ANU 06-06 00:09 → SUATTDRO 06-09 16:33
PROVIDERS: ADMIT Family Medicine; ATTEND Internal Medicine

== ENCOUNTER 2021-08-14 14:06 | Inpatient (IN) ==
[2021-08-14] MEDS ORDERED: Ondansetron 4 MG/2 ML VIAL IVP PRN (16:28)
[2021-08-14] MEDS ORDERED: Naloxone 0.4 MG/ML INJ IVP PRN (16:28)
[2021-08-14] MEDS ORDERED: D5% in Water 1,000 ML IVC PRN (16:31)
[2021-08-14] MEDS ORDERED: Dextrose Gel 15 GM/37.5 ML TUBE PO PRN ×2 (16:31)
[2021-08-14] MEDS ORDERED: *HR* Dextrose 50 % in Water (Syg) 50 ML SYRINGE IVP PRN (16:31)
[2021-08-14] MEDS: 0.9 % Sodium Chloride 1,000 ML IVC SCH (18:46)
[2021-08-14] MEDS ORDERED: *HR* Metoprolol 5 MG/5 ML VIAL IVP ONE (19:27)
[2021-08-14] MEDS: Insulin LISPRO 300 UNITS/3 ML VIAL SUBQ SCH (21:26)
[2021-08-14] MEDS ORDERED: 0.9 % Sodium Chloride 1,000 ML IVC ONE (22:21)
[2021-08-15] MEDS: Insulin LISPRO 300 UNITS/3 ML VIAL SUBQ SCH ×7 (00:09→23:49)
[2021-08-15 04:06] LABS: Basophils # 0.1 K/mcL (0.0-0.2); Basophils % 0.7 %; Eosinophils # 0.2 K/mcL (0.0-0.6); Hematocrit 24.6 % (37.5-50.1); Hemoglobin 7.5 g/dL (12.9-16.9); Immature Granulocytes % 1.1 % (0-4); Lymphocytes # 1.3 K/mcL (0.6-4.6); Lymphocytes % 6.1 %; Mean Corpuscular HGB Conc 30.5 g/dL (31.6-35.5); Mean Corpuscular Volume 88.5 fL (83.0-100.0); Mean Platelet Volume 9.4 fL (9.4-12.4); Monocytes # 1.1 K/mcL (0.0-1.3); Monocytes % 5.3 %; Neutrophils # 17.8 K/mcL (1.6-8.9); Platelet Count 635 K/mcL (140-400); Red Blood Count 2.78 M/mcL (4.19-5.50); Red Cell Distribution Width 14.9 % (11.5-14.5); Segmented Neutrophils % 85.8 %; White Blood Count 20.8 K/mcL (4.3-11.1)
[2021-08-15 04:25] LABS: BUN/Creatinine Ratio 44 (6-26); Blood Urea Nitrogen 25 mg/dL (8-23); Calcium 9.2 mg/dL (8.6-10.3); Carbon Dioxide 23 mEq/L (23-29); Chloride 97 mEq/L (98-107); Glucose 189 mg/dL (70-105); Osmolality,Calculated 283 (280-300); Potassium 4.7 mEq/L (3.5-5.1); Sodium 132 mEq/L (136-145); eGFR For African Americans > 60 (> 60); eGFR For Non-African Americans > 60 (> 60)
[2021-08-15 04:40] LABS: Bacteria,Urine Few per hpf (None-Few); Bilirubin,Urine Negative (Negative); Blood,Urine Large (Negative); Budding Yeast,Urine Few per hpf (None Seen); Clarity,Urine Turbid (Clear); Color,Urine Light-Yellow (Yellow); Glucose,Urine (UA) Normal (Normal); Ketones,Urine Trace mg/dL (Negative); Leukocyte Esterase,Urine Large (Negative); Nitrite,Urine Negative (Negative); Protein,Urine 30 mg/dL (Neg-Trace); RBC,Urine 30-50 per hpf (0-3); Specific Gravity,Urine 1.009 (1.010-1.025); Squamous Epithelial Cell,Urine Few per hpf (None-Few); Urobilinogen,Urine Normal (Normal); WBC,Urine TNTC per hpf (0-3)
[2021-08-15] MEDS ORDERED: *HR* Metoprolol 5 MG/5 ML VIAL IVP ONE (05:54)
[2021-08-15] MEDS: 0.9 % Sodium Chloride 1,000 ML IVC SCH (06:13)
[2021-08-15] MEDS ORDERED: Iopamidol - 370 500 ML MLS IVP ONE (07:22)
[2021-08-15] MEDS ORDERED: Piperacillin/Tazobactam 3.375 GM in 0.9 % Sodium Chloride Mini Bag 100 ML IVPB SCH (08:00)
[2021-08-15] MEDS: levETIRAcetam 500 MG/5 ML UDC GTUBE SCH ×2 (08:36→23:17)
[2021-08-15] MEDS: Lactobacillus 1 EACH CAP.SPRINK GTUBE SCH (08:36)
[2021-08-15] MEDS: Potassium Chloride Elixir 20 MEQ/15 ML UDC GTUBE SCH (08:36)
[2021-08-15] MEDS: Multivitamin Liquid 15 ML UDC GTUBE SCH (08:37)
[2021-08-15] MEDS: Ferrous Sulfate Oral Soln 300 MG/5 ML UDC GTUBE SCH (08:51)
[2021-08-15] MEDS ORDERED: FERROUS SULFATE 220 MG/5 ML GTUBE SCH (09:00)
[2021-08-15 10:03] LABS: Adenovirus Not Detected (Not Detect); Bordetella Pertussis Not Detected (Not Detect); Chlamydophila pneumoniae Not Detected (Not Detect); Coronavirus 229E Not Detected (Not Detect); Coronavirus HKU1 Not Detected (Not Detect); Coronavirus NL63 Not Detected (Not Detect); Coronavirus OC43 Not Detected (Not Detect); Human Metapneumovirus Not Detected (Not Detect); Human Rhinovirus/Enterovirus Not Detected (Not Detect); Influenza A Subtype 2009 H1 Not Detected (Not Detect); Influenza B Not Detected (Not Detect); Mycoplasma pneumoniae Not Detected (Not Detect); Parainfluenza Virus 1 Not Detected (Not Detect); Parainfluenza Virus 2 Not Detected (Not Detect); Parainfluenza Virus 3 Not Detected (Not Detect); Parainfluenza Virus 4 Not Detected (Not Detect); Respiratory Syncytial Virus Not Detected (Not Detect); SARS-CoV-2 Not Detected (Not Detect)
[2021-08-15] MEDS ORDERED: 0.9 % Sodium Chloride 500 ML IVC ONE (10:52)
[2021-08-15] MEDS ORDERED: Ertapenem 1,000 MG in 0.9 % Sodium Chloride Mini Bag 100 ML IVPB SCH (14:00)
[2021-08-15] MEDS: Micafungin 100 MG in 0.9 % Sodium Chloride Mini Bag 100 ML IVPB SCH (14:40)
[2021-08-15] MEDS: Meropenem 1,000 MG in 0.9 % Sodium Chloride Mini Bag 100 ML IVPB SCH ×2 (17:57→23:22)
[2021-08-15] MEDS: Insulin DETEMIR 100 UNIT/ML X5UNITS SUBQ SCH (23:18)
[2021-08-15] MEDS: Apixaban 5 MG TABLET GTUBE SCH (23:18)
[2021-08-16] MEDS: Insulin LISPRO 300 UNITS/3 ML VIAL SUBQ SCH ×5 (04:47→20:54)
[2021-08-16] MEDS: Meropenem 1,000 MG in 0.9 % Sodium Chloride Mini Bag 100 ML IVPB SCH ×2 (07:55→16:10)
[2021-08-16] MEDS: Apixaban 5 MG TABLET GTUBE SCH ×2 (08:08→20:53)
[2021-08-16] MEDS: Multivitamin Liquid 15 ML UDC GTUBE SCH (08:08)
[2021-08-16] MEDS: levETIRAcetam 500 MG/5 ML UDC GTUBE SCH ×2 (08:08→20:53)
[2021-08-16] MEDS: Potassium Chloride Elixir 20 MEQ/15 ML UDC GTUBE SCH (08:09)
[2021-08-16] MEDS: Lactobacillus 1 EACH CAP.SPRINK GTUBE SCH (08:09)
[2021-08-16] MEDS: Ferrous Sulfate Oral Soln 300 MG/5 ML UDC GTUBE SCH (08:09)
[2021-08-16 10:51] LABS: Basophils # 0.1 K/mcL (0.0-0.2); Basophils % 0.5 %; Eosinophils # 0.3 K/mcL (0.0-0.6); Eosinophils % 1.6 %; Hematocrit 19.4 % (37.5-50.1); Hemoglobin 6.1 g/dL (12.9-16.9); Lymphocytes # 1.8 K/mcL (0.6-4.6); Lymphocytes % 11.1 %; Mean Corpuscular HGB Conc 31.4 g/dL (31.6-35.5); Mean Corpuscular Hemoglobin 27.4 pg (28.0-33.3); Mean Platelet Volume 9.1 fL (9.4-12.4); Monocytes # 1.1 K/mcL (0.0-1.3); Monocytes % 6.7 %; Neutrophils # 13.2 K/mcL (1.6-8.9); Platelet Count 568 K/mcL (140-400); Red Blood Count 2.23 M/mcL (4.19-5.50); Red Cell Distribution Width 15.3 % (11.5-14.5); Segmented Neutrophils % 79.1 %; White Blood Count 16.6 K/mcL (4.3-11.1)
[2021-08-16 11:11] LABS: BUN/Creatinine Ratio 27 (6-26); Blood Urea Nitrogen 16 mg/dL (8-23); Calcium 8.2 mg/dL (8.6-10.3); Carbon Dioxide 27 mEq/L (23-29); Chloride 103 mEq/L (98-107); Glucose 277 mg/dL (70-105); Osmolality,Calculated 293 (280-300); Potassium 4.5 mEq/L (3.5-5.1); Sodium 136 mEq/L (136-145); eGFR For African Americans > 60 (> 60); eGFR For Non-African Americans > 60 (> 60)
[2021-08-16] MEDS: Micafungin 100 MG in 0.9 % Sodium Chloride Mini Bag 100 ML IVPB SCH (12:20)
[2021-08-16 14:23] LABS: Hematocrit 20.5 % (37.5-50.1); Hemoglobin 6.4 g/dL (12.9-16.9)
[2021-08-16] MEDS ORDERED: 0.9 % Sodium Chloride 250 ML ONE (17:49)
[2021-08-16] MEDS: Melatonin 3 MG TABLET GTUBE PRN (20:54)
[2021-08-16] MEDS: Insulin DETEMIR 100 UNIT/ML X5UNITS SUBQ SCH (20:54)
[2021-08-16 23:13] LABS: Hematocrit 25.7 % (37.5-50.1)
[2021-08-16 23:15] LABS: Hemoglobin 8.5 g/dL (12.9-16.9)
[2021-08-16] MEDS ORDERED: *HR* Labetalol 20 MG/4 ML SYRINGE IVP ONE (23:58)
[2021-08-17] MEDS: Meropenem 1,000 MG in 0.9 % Sodium Chloride Mini Bag 100 ML IVPB SCH ×3 (00:18→16:56)
[2021-08-17] MEDS: Insulin LISPRO 300 UNITS/3 ML VIAL SUBQ SCH ×6 (00:18→21:36)
[2021-08-17 05:20] LABS: Hematocrit 24.3 % (37.5-50.1); Hemoglobin 7.7 g/dL (12.9-16.9); Mean Corpuscular HGB Conc 31.7 g/dL (31.6-35.5); Mean Corpuscular Hemoglobin 27.6 pg (28.0-33.3); Mean Corpuscular Volume 87.1 fL (83.0-100.0); Mean Platelet Volume 9.3 fL (9.4-12.4); Platelet Count 544 K/mcL (140-400); Red Blood Count 2.79 M/mcL (4.19-5.50); Red Cell Distribution Width 14.9 % (11.5-14.5); White Blood Count 12.2 K/mcL (4.3-11.1)
[2021-08-17 05:39] LABS: BUN/Creatinine Ratio 29 (6-26); Blood Urea Nitrogen 15 mg/dL (8-23); Calcium 8.3 mg/dL (8.6-10.3); Carbon Dioxide 28 mEq/L (23-29); Chloride 103 mEq/L (98-107); Glucose 223 mg/dL (70-105); Osmolality,Calculated 290 (280-300); Sodium 136 mEq/L (136-145); eGFR For African Americans > 60 (> 60); eGFR For Non-African Americans > 60 (> 60)
[2021-08-17] MEDS: Apixaban 5 MG TABLET GTUBE SCH ×2 (07:49→21:35)
[2021-08-17] MEDS: Lactobacillus 1 EACH CAP.SPRINK GTUBE SCH (07:49)
[2021-08-17] MEDS: Potassium Chloride Elixir 20 MEQ/15 ML UDC GTUBE SCH (07:50)
[2021-08-17] MEDS: levETIRAcetam 500 MG/5 ML UDC GTUBE SCH ×2 (07:50→21:35)
[2021-08-17] MEDS: Multivitamin Liquid 15 ML UDC GTUBE SCH (07:51)
[2021-08-17] MEDS: Ferrous Sulfate Oral Soln 300 MG/5 ML UDC GTUBE SCH (07:51)
[2021-08-17] MEDS: Micafungin 100 MG in 0.9 % Sodium Chloride Mini Bag 100 ML IVPB SCH (13:56)
[2021-08-17] MEDS: Insulin DETEMIR 100 UNIT/ML X5UNITS SUBQ SCH (21:34)
[2021-08-18] MEDS: Insulin LISPRO 300 UNITS/3 ML VIAL SUBQ SCH ×6 (00:32→20:23)
[2021-08-18] MEDS: Meropenem 1,000 MG in 0.9 % Sodium Chloride Mini Bag 100 ML IVPB SCH ×3 (00:32→18:20)
[2021-08-18 03:28] LABS: Basophils # 0.1 K/mcL (0.0-0.2); Basophils % 0.7 %; Eosinophils # 0.4 K/mcL (0.0-0.6); Eosinophils % 3.8 %; Hematocrit 25.9 % (37.5-50.1); Hemoglobin 8.2 g/dL (12.9-16.9); Immature Granulocytes % 0.8 % (0-4); Lymphocytes # 1.6 K/mcL (0.6-4.6); Lymphocytes % 14.4 %; Mean Corpuscular HGB Conc 31.7 g/dL (31.6-35.5); Mean Corpuscular Hemoglobin 27.3 pg (28.0-33.3); Mean Corpuscular Volume 86.3 fL (83.0-100.0); Mean Platelet Volume 9.3 fL (9.4-12.4); Monocytes # 0.9 K/mcL (0.0-1.3); Monocytes % 7.9 %; Neutrophils # 7.9 K/mcL (1.6-8.9); Platelet Count 633 K/mcL (140-400); Segmented Neutrophils % 72.4 %; White Blood Count 10.9 K/mcL (4.3-11.1)
[2021-08-18 03:44] LABS: % Iron Saturation 10 % (20-55); BUN/Creatinine Ratio 30 (6-26); Blood Urea Nitrogen 15 mg/dL (8-23); Calcium 8.7 mg/dL (8.6-10.3); Carbon Dioxide 28 mEq/L (23-29); Chloride 101 mEq/L (98-107); Glucose 168 mg/dL (70-105); Iron 25 mcg/dL (65-175); Magnesium 1.9 mg/dL (1.6-2.6); Osmolality,Calculated 287 (280-300); Phosphorous 2.8 mg/dL (2.7-4.5); Potassium 4.3 mEq/L (3.5-5.1); Sodium 136 mEq/L (136-145); Transferrin 181 mg/dL (203-362); eGFR For African Americans > 60 (> 60); eGFR For Non-African Americans > 60 (> 60)
[2021-08-18 04:00] LABS: Ferritin 226 ng/mL (20-250)
[2021-08-18] MEDS: Potassium Chloride Elixir 20 MEQ/15 ML UDC GTUBE SCH (08:42)
[2021-08-18] MEDS: Ferrous Sulfate Oral Soln 300 MG/5 ML UDC GTUBE SCH (08:42)
[2021-08-18] MEDS: levETIRAcetam 500 MG/5 ML UDC GTUBE SCH ×2 (08:42→19:30)
[2021-08-18] MEDS: Lactobacillus 1 EACH CAP.SPRINK GTUBE SCH (08:42)
[2021-08-18] MEDS: Multivitamin Liquid 15 ML UDC GTUBE SCH (08:42)
[2021-08-18] MEDS: Apixaban 5 MG TABLET GTUBE SCH ×2 (08:43→19:32)
[2021-08-18] MEDS: Micafungin 100 MG in 0.9 % Sodium Chloride Mini Bag 100 ML IVPB SCH (12:58)
[2021-08-18] MEDS: Insulin DETEMIR 100 UNIT/ML X5UNITS SUBQ SCH (20:23)
[2021-08-19] MEDS: Meropenem 1,000 MG in 0.9 % Sodium Chloride Mini Bag 100 ML IVPB SCH ×2 (00:17→10:27)
[2021-08-19] MEDS: Insulin LISPRO 300 UNITS/3 ML VIAL SUBQ SCH ×6 (00:17→20:40)
[2021-08-19 02:00] LABS: Basophils # 0.1 K/mcL (0.0-0.2); Basophils % 0.9 %; Eosinophils # 0.4 K/mcL (0.0-0.6); Eosinophils % 3.3 %; Hematocrit 29.7 % (37.5-50.1); Hemoglobin 9.3 g/dL (12.9-16.9); Lymphocytes % 17.2 %; Mean Corpuscular HGB Conc 31.3 g/dL (31.6-35.5); Mean Corpuscular Hemoglobin 27.6 pg (28.0-33.3); Mean Corpuscular Volume 88.1 fL (83.0-100.0); Monocytes # 0.9 K/mcL (0.0-1.3); Monocytes % 7.7 %; Neutrophils # 8.1 K/mcL (1.6-8.9); Platelet Count 589 K/mcL (140-400); Red Blood Count 3.37 M/mcL (4.19-5.50); Segmented Neutrophils % 69.9 %; White Blood Count 11.6 K/mcL (4.3-11.1)
[2021-08-19 02:20] LABS: BUN/Creatinine Ratio 29 (6-26); Blood Urea Nitrogen 14 mg/dL (8-23); Calcium 9.1 mg/dL (8.6-10.3); Carbon Dioxide 28 mEq/L (23-29); Chloride 100 mEq/L (98-107); Glucose 185 mg/dL (70-105); Magnesium 1.9 mg/dL (1.6-2.6); Osmolality,Calculated 285 (280-300); Potassium 4.4 mEq/L (3.5-5.1); Sodium 135 mEq/L (136-145); eGFR For African Americans > 60 (> 60); eGFR For Non-African Americans > 60 (> 60)
[2021-08-19] MEDS: Apixaban 5 MG TABLET GTUBE SCH ×2 (10:23→20:36)
[2021-08-19] MEDS: Multivitamin Liquid 15 ML UDC GTUBE SCH (10:23)
[2021-08-19] MEDS: Potassium Chloride Elixir 20 MEQ/15 ML UDC GTUBE SCH (10:23)
[2021-08-19] MEDS: Ferrous Sulfate Oral Soln 300 MG/5 ML UDC GTUBE SCH (10:23)
[2021-08-19] MEDS: levETIRAcetam 500 MG/5 ML UDC GTUBE SCH ×2 (10:23→20:39)
[2021-08-19] MEDS: Lactobacillus 1 EACH CAP.SPRINK GTUBE SCH (10:24)
[2021-08-19] MEDS: Insulin DETEMIR 100 UNIT/ML X5UNITS SUBQ SCH (20:40)
[2021-08-20] MEDS: Insulin LISPRO 300 UNITS/3 ML VIAL SUBQ SCH ×6 (01:04→21:09)
[2021-08-20] MEDS: Ferrous Sulfate Oral Soln 300 MG/5 ML UDC GTUBE SCH (09:18)
[2021-08-20] MEDS: levETIRAcetam 500 MG/5 ML UDC GTUBE SCH ×2 (09:20→21:09)
[2021-08-20] MEDS: Multivitamin Liquid 15 ML UDC GTUBE SCH (09:21)
[2021-08-20] MEDS: Lactobacillus 1 EACH CAP.SPRINK GTUBE SCH (09:21)
[2021-08-20] MEDS: Potassium Chloride Elixir 20 MEQ/15 ML UDC GTUBE SCH (09:21)
[2021-08-20] MEDS: Apixaban 5 MG TABLET GTUBE SCH ×2 (09:23→21:09)
[2021-08-20 14:40] LABS: Hemoglobin 10.2 g/dL (12.9-16.9); Mean Corpuscular HGB Conc 31.9 g/dL (31.6-35.5); Mean Corpuscular Hemoglobin 27.9 pg (28.0-33.3); Mean Corpuscular Volume 87.7 fL (83.0-100.0); Mean Platelet Volume 9.3 fL (9.4-12.4); Platelet Count 687 K/mcL (140-400); Red Blood Count 3.65 M/mcL (4.19-5.50); Red Cell Distribution Width 15.3 % (11.5-14.5); White Blood Count 15.8 K/mcL (4.3-11.1)
[2021-08-20 14:56] LABS: BUN/Creatinine Ratio 29 (6-26); Blood Urea Nitrogen 18 mg/dL (8-23); Calcium 9.8 mg/dL (8.6-10.3); Carbon Dioxide 28 mEq/L (23-29); Chloride 95 mEq/L (98-107); Glucose 204 mg/dL (70-105); Magnesium 2.2 mg/dL (1.6-2.6); Osmolality,Calculated 288 (280-300); Phosphorous 4.2 mg/dL (2.7-4.5); Potassium 5.5 mEq/L (3.5-5.1); Sodium 135 mEq/L (136-145); eGFR For African Americans > 60 (> 60); eGFR For Non-African Americans > 60 (> 60)
[2021-08-20] MEDS ORDERED: SODIUM ZIRCONIUM CYCLOSILICATE 5 GM POWD.PACK PO STA (15:47)
[2021-08-20] MEDS: Insulin DETEMIR 100 UNIT/ML X5UNITS SUBQ SCH (21:10)
[2021-08-21] MEDS: Insulin LISPRO 300 UNITS/3 ML VIAL SUBQ SCH ×6 (01:47→22:13)
[2021-08-21] MEDS: levETIRAcetam 500 MG/5 ML UDC GTUBE SCH ×2 (08:31→22:12)
[2021-08-21] MEDS: Apixaban 5 MG TABLET GTUBE SCH ×2 (08:32→22:12)
[2021-08-21] MEDS: Multivitamin Liquid 15 ML UDC GTUBE SCH (08:32)
[2021-08-21] MEDS: Ferrous Sulfate Oral Soln 300 MG/5 ML UDC GTUBE SCH (08:32)
[2021-08-21] MEDS: Lactobacillus 1 EACH CAP.SPRINK GTUBE SCH (08:34)
[2021-08-21] MEDS ORDERED: Finasteride 5 MG TABLET PO SCH (09:00)
[2021-08-21] MEDS ORDERED: Lidocaine -MPF 2% 2 ML VIAL ONE (10:26)
[2021-08-21] MEDS ORDERED: *HR* Propofol 200 MG/20 ML VIAL IVP ONE (10:26)
[2021-08-21] MEDS ORDERED: Ondansetron 4 MG/2 ML VIAL ONE (10:28)
[2021-08-21 13:19] LABS: Basophils # 0.1 K/mcL (0.0-0.2); Basophils % 0.7 %; Eosinophils # 0.3 K/mcL (0.0-0.6); Eosinophils % 1.9 %; Hematocrit 31.5 % (37.5-50.1); Hemoglobin 9.9 g/dL (12.9-16.9); Immature Granulocytes % 0.8 % (0-4); Lymphocytes # 1.6 K/mcL (0.6-4.6); Lymphocytes % 10.1 %; Mean Corpuscular HGB Conc 31.4 g/dL (31.6-35.5); Mean Platelet Volume 9.4 fL (9.4-12.4); Monocytes # 0.6 K/mcL (0.0-1.3); Monocytes % 4.2 %; Neutrophils # 12.6 K/mcL (1.6-8.9); Platelet Count 578 K/mcL (140-400); Red Blood Count 3.54 M/mcL (4.19-5.50); Red Cell Distribution Width 15.1 % (11.5-14.5); Segmented Neutrophils % 82.3 %; White Blood Count 15.3 K/mcL (4.3-11.1)
[2021-08-21 13:37] LABS: BUN/Creatinine Ratio 32 (6-26); Blood Urea Nitrogen 18 mg/dL (8-23); Calcium 9.4 mg/dL (8.6-10.3); Carbon Dioxide 30 mEq/L (23-29); Chloride 99 mEq/L (98-107); Glucose 94 mg/dL (70-105); Osmolality,Calculated 284 (280-300); Potassium 4.4 mEq/L (3.5-5.1); Sodium 136 mEq/L (136-145); eGFR For African Americans > 60 (> 60); eGFR For Non-African Americans > 60 (> 60)
[2021-08-21] MEDS: Insulin DETEMIR 100 UNIT/ML X5UNITS SUBQ SCH (22:12)
[2021-08-21 22:33] LABS: Source of Body Fluid RIGHT LOWER LOBE LUN
[2021-08-21 22:34] LABS: Appearance of Body Fluid Slightly Hazy (Clear); Volume of Body Fluid 25 mL
[2021-08-22] MEDS: Insulin LISPRO 300 UNITS/3 ML VIAL SUBQ SCH ×6 (02:28→21:01)
[2021-08-22 08:09] LABS: Basophils # 0.1 K/mcL (0.0-0.2); Basophils % 0.6 %; Eosinophils # 0.1 K/mcL (0.0-0.6); Eosinophils % 0.7 %; Hematocrit 28.5 % (37.5-50.1); Immature Granulocytes % 0.5 % (0-4); Lymphocytes # 2.2 K/mcL (0.6-4.6); Lymphocytes % 19.2 %; Mean Corpuscular HGB Conc 31.6 g/dL (31.6-35.5); Mean Corpuscular Hemoglobin 27.7 pg (28.0-33.3); Mean Corpuscular Volume 87.7 fL (83.0-100.0); Mean Platelet Volume 9.5 fL (9.4-12.4); Monocytes # 1.1 K/mcL (0.0-1.3); Monocytes % 9.3 %; Platelet Count 583 K/mcL (140-400); Red Blood Count 3.25 M/mcL (4.19-5.50); Red Cell Distribution Width 15.3 % (11.5-14.5); Segmented Neutrophils % 69.7 %; White Blood Count 11.5 K/mcL (4.3-11.1)
[2021-08-22 08:24] LABS: BUN/Creatinine Ratio 42 (6-26); Blood Urea Nitrogen 27 mg/dL (8-23); Calcium 9.1 mg/dL (8.6-10.3); Carbon Dioxide 31 mEq/L (23-29); Chloride 97 mEq/L (98-107); Glucose 219 mg/dL (70-105); Osmolality,Calculated 292 (280-300); Potassium 4.5 mEq/L (3.5-5.1); Sodium 135 mEq/L (136-145); eGFR For African Americans > 60 (> 60); eGFR For Non-African Americans > 60 (> 60)
[2021-08-22] MEDS: Multivitamin Liquid 15 ML UDC GTUBE SCH (08:32)
[2021-08-22] MEDS: Ferrous Sulfate Oral Soln 300 MG/5 ML UDC GTUBE SCH (08:32)
[2021-08-22] MEDS: levETIRAcetam 500 MG/5 ML UDC GTUBE SCH ×2 (08:33→20:53)
[2021-08-22] MEDS: Apixaban 5 MG TABLET GTUBE SCH ×2 (08:33→20:54)
[2021-08-22] MEDS: Lactobacillus 1 EACH CAP.SPRINK GTUBE SCH (08:33)
[2021-08-22] MEDS: Finasteride 5 MG TABLET PO SCH (08:33)
[2021-08-22] MEDS: Insulin DETEMIR 100 UNIT/ML X5UNITS SUBQ SCH (21:00)
[2021-08-23] MEDS: Insulin LISPRO 300 UNITS/3 ML VIAL SUBQ SCH ×6 (00:20→21:08)
[2021-08-23 01:03] LABS: Basophils # 0.1 K/mcL (0.0-0.2); Basophils % 0.7 %; Eosinophils # 0.1 K/mcL (0.0-0.6); Eosinophils % 1.4 %; Hematocrit 30.3 % (37.5-50.1); Hemoglobin 9.5 g/dL (12.9-16.9); Immature Granulocytes % 0.7 % (0-4); Lymphocytes # 1.9 K/mcL (0.6-4.6); Lymphocytes % 19.1 %; Mean Corpuscular HGB Conc 31.4 g/dL (31.6-35.5); Mean Corpuscular Hemoglobin 27.5 pg (28.0-33.3); Mean Corpuscular Volume 87.8 fL (83.0-100.0); Mean Platelet Volume 9.5 fL (9.4-12.4); Monocytes # 0.9 K/mcL (0.0-1.3); Neutrophils # 6.9 K/mcL (1.6-8.9); Platelet Count 571 K/mcL (140-400); Red Blood Count 3.45 M/mcL (4.19-5.50); Red Cell Distribution Width 15.4 % (11.5-14.5); Segmented Neutrophils % 69.1 %
[2021-08-23 01:22] LABS: BUN/Creatinine Ratio 37 (6-26); Blood Urea Nitrogen 22 mg/dL (8-23); Calcium 9.2 mg/dL (8.6-10.3); Carbon Dioxide 31 mEq/L (23-29); Chloride 98 mEq/L (98-107); Glucose 192 mg/dL (70-105); Osmolality,Calculated 293 (280-300); Potassium 4.3 mEq/L (3.5-5.1); Sodium 137 mEq/L (136-145); eGFR For African Americans > 60 (> 60); eGFR For Non-African Americans > 60 (> 60)
[2021-08-23] MEDS: Ferrous Sulfate Oral Soln 300 MG/5 ML UDC GTUBE SCH (08:07)
[2021-08-23] MEDS: Multivitamin Liquid 15 ML UDC GTUBE SCH (08:07)
[2021-08-23] MEDS: levETIRAcetam 500 MG/5 ML UDC GTUBE SCH ×2 (08:07→21:07)
[2021-08-23] MEDS: Apixaban 5 MG TABLET GTUBE SCH ×2 (08:08→21:08)
[2021-08-23] MEDS: Lactobacillus 1 EACH CAP.SPRINK GTUBE SCH (08:08)
[2021-08-23] MEDS: Finasteride 5 MG TABLET PO SCH (08:08)
[2021-08-23] MEDS ORDERED: Insulin DETEMIR 100 UNIT/ML X5UNITS SUBQ SCH (21:00)
[2021-08-23] MEDS: Melatonin 3 MG TABLET GTUBE PRN (21:08)
[2021-08-24] MEDS: Insulin LISPRO 300 UNITS/3 ML VIAL SUBQ SCH ×6 (00:39→20:51)
[2021-08-24 04:34] LABS: Basophils # 0.1 K/mcL (0.0-0.2); Basophils % 0.5 %; Eosinophils # 0.2 K/mcL (0.0-0.6); Eosinophils % 1.4 %; Hematocrit 30.6 % (37.5-50.1); Hemoglobin 9.8 g/dL (12.9-16.9); Immature Granulocytes % 0.5 % (0-4); Lymphocytes # 1.8 K/mcL (0.6-4.6); Lymphocytes % 15.1 %; Mean Corpuscular Hemoglobin 28.3 pg (28.0-33.3); Mean Corpuscular Volume 88.4 fL (83.0-100.0); Mean Platelet Volume 9.8 fL (9.4-12.4); Monocytes % 8.1 %; Neutrophils # 8.7 K/mcL (1.6-8.9); Platelet Count 513 K/mcL (140-400); Red Blood Count 3.46 M/mcL (4.19-5.50); Red Cell Distribution Width 15.4 % (11.5-14.5); Segmented Neutrophils % 74.4 %; White Blood Count 11.7 K/mcL (4.3-11.1)
[2021-08-24 04:55] LABS: BUN/Creatinine Ratio 35 (6-26); Blood Urea Nitrogen 20 mg/dL (8-23); Calcium 9.4 mg/dL (8.6-10.3); Carbon Dioxide 31 mEq/L (23-29); Chloride 99 mEq/L (98-107); Glucose 171 mg/dL (70-105); Osmolality,Calculated 293 (280-300); Potassium 4.3 mEq/L (3.5-5.1); Sodium 138 mEq/L (136-145); eGFR For African Americans > 60 (> 60); eGFR For Non-African Americans > 60 (> 60)
[2021-08-24] MEDS ORDERED: Acetylcysteine 10% 2 ML INHSOL IH SCH (08:00)
[2021-08-24] MEDS: Acetylcysteine 10% 2 ML INHSOL IH SCH ×3 (09:22→21:57)
[2021-08-24] MEDS: Ipratropium/Albuterol Neb 3 ML IH SCH ×3 (09:22→21:57)
[2021-08-24] MEDS: Ferrous Sulfate Oral Soln 300 MG/5 ML UDC GTUBE SCH (10:43)
[2021-08-24] MEDS: Multivitamin Liquid 15 ML UDC GTUBE SCH (10:43)
[2021-08-24] MEDS: levETIRAcetam 500 MG/5 ML UDC GTUBE SCH ×2 (10:43→20:48)
[2021-08-24] MEDS: Lactobacillus 1 EACH CAP.SPRINK GTUBE SCH (10:44)
[2021-08-24] MEDS: Finasteride 5 MG TABLET PO SCH (10:44)
[2021-08-24] MEDS: Apixaban 5 MG TABLET GTUBE SCH ×2 (10:44→20:49)
[2021-08-24] MEDS ORDERED: Insulin DETEMIR 100 UNIT/ML X5UNITS SUBQ SCH (21:00)
[2021-08-25] MEDS: Insulin LISPRO 300 UNITS/3 ML VIAL SUBQ SCH ×6 (00:52→20:29)
[2021-08-25] MEDS: Acetylcysteine 10% 2 ML INHSOL IH SCH ×4 (03:56→22:08)
[2021-08-25] MEDS: Ipratropium/Albuterol Neb 3 ML IH SCH ×4 (03:56→22:08)
[2021-08-25 08:22] LABS: Basophils # 0.1 K/mcL (0.0-0.2); Basophils % 0.7 %; Eosinophils # 0.3 K/mcL (0.0-0.6); Eosinophils % 2.7 %; Hematocrit 28.9 % (37.5-50.1); Immature Granulocytes % 0.6 % (0-4); Lymphocytes # 1.8 K/mcL (0.6-4.6); Mean Corpuscular HGB Conc 31.1 g/dL (31.6-35.5); Mean Corpuscular Hemoglobin 27.7 pg (28.0-33.3); Mean Corpuscular Volume 88.9 fL (83.0-100.0); Mean Platelet Volume 10.1 fL (9.4-12.4); Monocytes # 0.8 K/mcL (0.0-1.3); Monocytes % 7.6 %; Neutrophils # 7.9 K/mcL (1.6-8.9); Platelet Count 509 K/mcL (140-400); Red Blood Count 3.25 M/mcL (4.19-5.50); Red Cell Distribution Width 15.3 % (11.5-14.5); Segmented Neutrophils % 72.4 %; White Blood Count 10.9 K/mcL (4.3-11.1)
[2021-08-25 08:52] LABS: BUN/Creatinine Ratio 34 (6-26); Blood Urea Nitrogen 20 mg/dL (8-23); Calcium 9.4 mg/dL (8.6-10.3); Carbon Dioxide 29 mEq/L (23-29); Chloride 100 mEq/L (98-107); Glucose 114 mg/dL (70-105); Osmolality,Calculated 289 (280-300); Potassium 4.5 mEq/L (3.5-5.1); Sodium 138 mEq/L (136-145); eGFR For African Americans > 60 (> 60); eGFR For Non-African Americans > 60 (> 60)
[2021-08-25] MEDS: Finasteride 5 MG TABLET PO SCH (09:49)
[2021-08-25] MEDS: Ferrous Sulfate Oral Soln 300 MG/5 ML UDC GTUBE SCH (09:50)
[2021-08-25] MEDS: Apixaban 5 MG TABLET GTUBE SCH ×2 (09:50→20:28)
[2021-08-25] MEDS: levETIRAcetam 500 MG/5 ML UDC GTUBE SCH ×2 (09:50→20:28)
[2021-08-25] MEDS: Multivitamin Liquid 15 ML UDC GTUBE SCH (09:51)
[2021-08-25] MEDS: Lactobacillus 1 EACH CAP.SPRINK GTUBE SCH (09:51)
[2021-08-25] MEDS: Insulin DETEMIR 100 UNIT/ML X5UNITS SUBQ SCH (20:29)
[2021-08-26] MEDS: Insulin LISPRO 300 UNITS/3 ML VIAL SUBQ SCH ×7 (01:22→23:42)
[2021-08-26] MEDS: Ipratropium/Albuterol Neb 3 ML IH SCH ×4 (04:17→22:32)
[2021-08-26] MEDS: Acetylcysteine 10% 2 ML INHSOL IH SCH ×4 (04:17→22:32)
[2021-08-26 04:48] LABS: Basophils # 0.1 K/mcL (0.0-0.2); Basophils % 0.7 %; Eosinophils # 0.3 K/mcL (0.0-0.6); Eosinophils % 3.1 %; Hematocrit 28.6 % (37.5-50.1); Hemoglobin 8.9 g/dL (12.9-16.9); Immature Granulocytes % 0.4 % (0-4); Lymphocytes # 1.8 K/mcL (0.6-4.6); Lymphocytes % 16.9 %; Mean Corpuscular HGB Conc 31.1 g/dL (31.6-35.5); Mean Corpuscular Hemoglobin 27.8 pg (28.0-33.3); Mean Corpuscular Volume 89.4 fL (83.0-100.0); Mean Platelet Volume 10.4 fL (9.4-12.4); Monocytes # 0.8 K/mcL (0.0-1.3); Monocytes % 7.5 %; Neutrophils # 7.6 K/mcL (1.6-8.9); Platelet Count 459 K/mcL (140-400); Red Cell Distribution Width 15.2 % (11.5-14.5); Segmented Neutrophils % 71.4 %; White Blood Count 10.6 K/mcL (4.3-11.1)
[2021-08-26 04:59] LABS: BUN/Creatinine Ratio 34 (6-26); Blood Urea Nitrogen 20 mg/dL (8-23); Calcium 9.1 mg/dL (8.6-10.3); Carbon Dioxide 31 mEq/L (23-29); Chloride 96 mEq/L (98-107); Glucose 210 mg/dL (70-105); Magnesium 1.9 mg/dL (1.6-2.6); Osmolality,Calculated 291 (280-300); Potassium 4.3 mEq/L (3.5-5.1); Sodium 136 mEq/L (136-145); eGFR For African Americans > 60 (> 60); eGFR For Non-African Americans > 60 (> 60)
[2021-08-26] MEDS: Finasteride 5 MG TABLET PO SCH (10:05)
[2021-08-26] MEDS: Lactobacillus 1 EACH CAP.SPRINK GTUBE SCH (10:06)
[2021-08-26] MEDS: Ferrous Sulfate Oral Soln 300 MG/5 ML UDC GTUBE SCH (10:06)
[2021-08-26] MEDS: Multivitamin Liquid 15 ML UDC GTUBE SCH (10:06)
[2021-08-26] MEDS: Apixaban 5 MG TABLET GTUBE SCH ×2 (10:06→20:29)
[2021-08-26] MEDS: levETIRAcetam 500 MG/5 ML UDC GTUBE SCH ×2 (10:08→20:29)
[2021-08-26] MEDS: Insulin DETEMIR 100 UNIT/ML X5UNITS SUBQ SCH ×2 (10:49→20:29)
[2021-08-27] MEDS: Acetylcysteine 10% 2 ML INHSOL IH SCH ×4 (03:47→21:25)
[2021-08-27] MEDS: Ipratropium/Albuterol Neb 3 ML IH SCH ×4 (03:47→21:24)
[2021-08-27] MEDS: Insulin LISPRO 300 UNITS/3 ML VIAL SUBQ SCH ×5 (05:51→22:09)
[2021-08-27 07:38] LABS: Basophils # 0.1 K/mcL (0.0-0.2); Basophils % 0.7 %; Eosinophils # 0.3 K/mcL (0.0-0.6); Hematocrit 29.2 % (37.5-50.1); Hemoglobin 9.1 g/dL (12.9-16.9); Immature Granulocytes % 0.6 % (0-4); Lymphocytes # 1.9 K/mcL (0.6-4.6); Lymphocytes % 17.7 %; Mean Corpuscular HGB Conc 31.2 g/dL (31.6-35.5); Mean Corpuscular Hemoglobin 27.9 pg (28.0-33.3); Mean Corpuscular Volume 89.6 fL (83.0-100.0); Mean Platelet Volume 10.5 fL (9.4-12.4); Monocytes # 0.8 K/mcL (0.0-1.3); Monocytes % 7.4 %; Neutrophils # 7.7 K/mcL (1.6-8.9); Platelet Count 488 K/mcL (140-400); Red Blood Count 3.26 M/mcL (4.19-5.50); Red Cell Distribution Width 15.4 % (11.5-14.5); Segmented Neutrophils % 70.6 %; White Blood Count 10.9 K/mcL (4.3-11.1)
[2021-08-27 07:42] LABS: BUN/Creatinine Ratio 50 (6-26); Blood Urea Nitrogen 28 mg/dL (8-23); Calcium 9.3 mg/dL (8.6-10.3); Carbon Dioxide 29 mEq/L (23-29); Chloride 98 mEq/L (98-107); Glucose 187 mg/dL (70-105); Osmolality,Calculated 290 (280-300); Sodium 135 mEq/L (136-145); eGFR For African Americans > 60 (> 60); eGFR For Non-African Americans > 60 (> 60)
[2021-08-27] MEDS: Insulin DETEMIR 100 UNIT/ML X5UNITS SUBQ SCH ×2 (09:14→22:09)
[2021-08-27] MEDS: Multivitamin Liquid 15 ML UDC GTUBE SCH (09:15)
[2021-08-27] MEDS: Ferrous Sulfate Oral Soln 300 MG/5 ML UDC GTUBE SCH (09:15)
[2021-08-27] MEDS: levETIRAcetam 500 MG/5 ML UDC GTUBE SCH ×2 (09:16→22:08)
[2021-08-27] MEDS: Lactobacillus 1 EACH CAP.SPRINK GTUBE SCH (09:17)
[2021-08-27] MEDS: Apixaban 5 MG TABLET GTUBE SCH ×2 (09:17→22:08)
[2021-08-27] MEDS: Finasteride 5 MG TABLET PO SCH (09:17)
[2021-08-28] MEDS: Insulin LISPRO 300 UNITS/3 ML VIAL SUBQ SCH ×6 (01:27→20:54)
[2021-08-28 01:55] LABS: Basophils # 0.1 K/mcL (0.0-0.2); Basophils % 0.8 %; Eosinophils # 0.3 K/mcL (0.0-0.6); Eosinophils % 2.8 %; Hemoglobin 8.9 g/dL (12.9-16.9); Immature Granulocytes % 0.5 % (0-4); Lymphocytes # 1.8 K/mcL (0.6-4.6); Lymphocytes % 18.3 %; Mean Corpuscular HGB Conc 31.8 g/dL (31.6-35.5); Mean Corpuscular Hemoglobin 27.5 pg (28.0-33.3); Mean Corpuscular Volume 86.4 fL (83.0-100.0); Mean Platelet Volume 10.1 fL (9.4-12.4); Monocytes # 0.8 K/mcL (0.0-1.3); Platelet Count 438 K/mcL (140-400); Red Blood Count 3.24 M/mcL (4.19-5.50); Red Cell Distribution Width 15.3 % (11.5-14.5); Segmented Neutrophils % 69.6 %; White Blood Count 10.1 K/mcL (4.3-11.1)
[2021-08-28 02:14] LABS: BUN/Creatinine Ratio 50 (6-26); Blood Urea Nitrogen 27 mg/dL (8-23); Carbon Dioxide 30 mEq/L (23-29); Chloride 100 mEq/L (98-107); Glucose 238 mg/dL (70-105); Osmolality,Calculated 301 (280-300); Potassium 4.3 mEq/L (3.5-5.1); Sodium 139 mEq/L (136-145); eGFR For African Americans > 60 (> 60); eGFR For Non-African Americans > 60 (> 60)
[2021-08-28] MEDS: Ipratropium/Albuterol Neb 3 ML IH SCH ×4 (03:21→22:03)
[2021-08-28] MEDS: Acetylcysteine 10% 2 ML INHSOL IH SCH ×4 (03:22→22:04)
[2021-08-28] MEDS: Lactobacillus 1 EACH CAP.SPRINK GTUBE SCH (07:57)
[2021-08-28] MEDS: Insulin DETEMIR 100 UNIT/ML X5UNITS SUBQ SCH ×2 (07:58→20:55)
[2021-08-28] MEDS: Ferrous Sulfate Oral Soln 300 MG/5 ML UDC GTUBE SCH (07:58)
[2021-08-28] MEDS: levETIRAcetam 500 MG/5 ML UDC GTUBE SCH ×2 (07:58→20:52)
[2021-08-28] MEDS: Multivitamin Liquid 15 ML UDC GTUBE SCH (07:58)
[2021-08-28] MEDS: Apixaban 5 MG TABLET GTUBE SCH ×2 (07:58→20:54)
[2021-08-28] MEDS: Finasteride 5 MG TABLET PO SCH (07:58)
[2021-08-29] MEDS: Insulin LISPRO 300 UNITS/3 ML VIAL SUBQ SCH ×4 (01:58→11:12)
[2021-08-29] MEDS: Ipratropium/Albuterol Neb 3 ML IH SCH ×2 (03:57→11:09)
[2021-08-29] MEDS: Acetylcysteine 10% 2 ML INHSOL IH SCH ×2 (04:01→11:10)
[2021-08-29] MEDS: Insulin DETEMIR 100 UNIT/ML X5UNITS SUBQ SCH (07:55)
[2021-08-29] MEDS: Apixaban 5 MG TABLET GTUBE SCH (07:55)
[2021-08-29] MEDS: Multivitamin Liquid 15 ML UDC GTUBE SCH (07:55)
[2021-08-29] MEDS: Ferrous Sulfate Oral Soln 300 MG/5 ML UDC GTUBE SCH (07:56)
[2021-08-29] MEDS: levETIRAcetam 500 MG/5 ML UDC GTUBE SCH (07:56)
[2021-08-29] MEDS: Lactobacillus 1 EACH CAP.SPRINK GTUBE SCH (07:56)
[2021-08-29] MEDS: Finasteride 5 MG TABLET PO SCH (07:56)
[2021-08-29 11:20] VITALS: BP 115/79; PULSE 90; TEMP 98.9; O2SAT 99
[2021-08-29 11:33] LABS: Influenza A PCR Negative (Negative); Influenza B PCR Negative (Negative); Resp. Syncytial Virus PCR Negative (Negative)
[2021-08-29 12:25] LABS: SARS-CoV-2 by PCR (In House) Negative (Negative)
== END 2021-08-29 13:40 | DRG 720 ==
LOC: 2ANU 14:06 → EMEROOARM 14:06 → 2ANU 17:25 → SUATTDRO 08-15 14:27
PROVIDERS: ADMIT Internal Medicine; ATTEND General Practice
PROC: ENDOBRF (2021-08-21 08:45)

== ENCOUNTER 2021-09-18 06:06 | Inpatient (IN) ==
[2021-09-18] MEDS ORDERED: Naloxone 0.4 MG/ML INJ IVP PRN (12:29)
[2021-09-18] MEDS ORDERED: Ondansetron 4 MG/2 ML VIAL IVP PRN (12:29)
[2021-09-18] MEDS ORDERED: Acetaminophen 325 MG TABLET PO PRN (12:29)
[2021-09-18] MEDS ORDERED: D5% in Water 1,000 ML IVC PRN (13:29)
[2021-09-18] MEDS ORDERED: Dextrose Gel 15 GM/37.5 ML TUBE PO PRN ×2 (13:29)
[2021-09-18 14:07] LABS: Basophils # 0.1 K/mcL (0.0-0.2); Basophils % 0.9 %; Eosinophils % 3.3 %; Hematocrit 29.9 % (37.5-50.1); Hemoglobin 9.3 g/dL (12.9-16.9); Immature Platelets 2.3 % (1.1-6.1); Lymphocytes # 2.5 K/mcL (0.6-4.6); Lymphocytes % 18.4 %; Mean Corpuscular HGB Conc 31.1 g/dL (31.6-35.5); Mean Corpuscular Hemoglobin 27.1 pg (28.0-33.3); Mean Corpuscular Volume 87.2 fL (83.0-100.0); Mean Platelet Volume 10.1 fL (9.4-12.4); Monocytes % 7.7 %; Neutrophils # 9.3 K/mcL (1.6-8.9); Platelet Count 438 K/mcL (140-400); Red Blood Count 3.43 M/mcL (4.19-5.50); Red Cell Distribution Width 15.9 % (11.5-14.5); Segmented Neutrophils % 68.7 %; White Blood Count 13.5 K/mcL (4.3-11.1)
[2021-09-18 14:08] LABS: Eosinophils # 0.5 K/mcL (0.0-0.6)
[2021-09-18] MEDS: 0.9 % Sodium Chloride 1,000 ML IVC SCH (14:08)
[2021-09-18] MEDS: Ipratropium/Albuterol Neb 3 ML IH SCH ×2 (14:52→22:57)
[2021-09-18] MEDS: Acetylcysteine 10% 2 ML INHSOL IH SCH ×2 (14:52→22:57)
[2021-09-18 15:48] LABS: BUN/Creatinine Ratio 37 (6-26); Blood Urea Nitrogen 29 mg/dL (8-23); Calcium 9.1 mg/dL (8.6-10.3); Carbon Dioxide 29 mEq/L (23-29); Chloride 103 mEq/L (98-107); Glucose 221 mg/dL (70-105); Osmolality,Calculated 305 (280-300); Phosphorous 5.4 mg/dL (2.7-4.5); Sodium 141 mEq/L (136-145); eGFR For African Americans > 60 (> 60); eGFR For Non-African Americans > 60 (> 60)
[2021-09-18] MEDS: Insulin LISPRO 300 UNITS/3 ML VIAL SUBQ SCH (17:38)
[2021-09-18] MEDS: Apixaban 5 MG TABLET GTUBE SCH (23:11)
[2021-09-19] MEDS: Insulin LISPRO 300 UNITS/3 ML VIAL SUBQ SCH ×4 (00:36→18:50)
[2021-09-19] MEDS: Ipratropium/Albuterol Neb 3 ML IH SCH ×4 (03:42→22:10)
[2021-09-19 07:13] LABS: Basophils # 0.1 K/mcL (0.0-0.2); Basophils % 0.8 %; Eosinophils # 0.5 K/mcL (0.0-0.6); Eosinophils % 4.3 %; Hematocrit 28.6 % (37.5-50.1); Hemoglobin 8.5 g/dL (12.9-16.9); Immature Granulocytes % 0.5 % (0-4); Lymphocytes # 1.7 K/mcL (0.6-4.6); Lymphocytes % 13.9 %; Mean Corpuscular HGB Conc 29.7 g/dL (31.6-35.5); Mean Corpuscular Hemoglobin 26.8 pg (28.0-33.3); Mean Corpuscular Volume 90.2 fL (83.0-100.0); Mean Platelet Volume 9.8 fL (9.4-12.4); Monocytes # 1.4 K/mcL (0.0-1.3); Monocytes % 11.8 %; Neutrophils # 8.3 K/mcL (1.6-8.9); Platelet Count 380 K/mcL (140-400); Red Blood Count 3.17 M/mcL (4.19-5.50); Red Cell Distribution Width 15.7 % (11.5-14.5); Segmented Neutrophils % 68.7 %; White Blood Count 12.1 K/mcL (4.3-11.1)
[2021-09-19] MEDS: 0.9 % Sodium Chloride 1,000 ML IVC SCH (07:32)
[2021-09-19] MEDS: Acetylcysteine 10% 2 ML INHSOL IH SCH ×3 (07:44→22:10)
[2021-09-19] MEDS: levETIRAcetam 500 MG/5 ML UDC GTUBE SCH ×2 (09:22→21:27)
[2021-09-19] MEDS: Apixaban 5 MG TABLET GTUBE SCH ×2 (09:22→21:27)
[2021-09-20] MEDS: Insulin LISPRO 300 UNITS/3 ML VIAL SUBQ SCH ×4 (00:27→19:08)
[2021-09-20] MEDS: Ipratropium/Albuterol Neb 3 ML IH SCH ×4 (03:41→22:01)
[2021-09-20] MEDS: Acetylcysteine 10% 2 ML INHSOL IH SCH ×4 (03:41→22:01)
[2021-09-20 07:10] LABS: Alanine Aminotransferase 21 Units/L (7-52); Albumin 2.8 g/dL (3.5-5.7); Albumin/Globulin Ratio 0.8 (1.1-2.2); Alkaline Phosphatase 65 Units/L (34-104); Aspartate Amino Transferase 31 Units/L (13-39); BUN/Creatinine Ratio 33 (6-26); Bilirubin,Total 0.4 mg/dL (0.3-1.0); Blood Urea Nitrogen 17 mg/dL (8-23); Calcium 8.1 mg/dL (8.6-10.3); Carbon Dioxide 26 mEq/L (23-29); Chloride 107 mEq/L (98-107); Globulin 3.5 g/dL (2.4-3.5); Glucose 168 mg/dL (70-105); Magnesium 1.9 mg/dL (1.6-2.6); Osmolality,Calculated 297 (280-300); Phosphorous 2.9 mg/dL (2.7-4.5); Sodium 141 mEq/L (136-145); Total Protein 6.3 g/dL (6.4-8.9); eGFR For African Americans > 60 (> 60); eGFR For Non-African Americans > 60 (> 60)
[2021-09-20 07:17] LABS: Basophils # 0.1 K/mcL (0.0-0.2); Basophils % 0.8 %; Eosinophils # 0.4 K/mcL (0.0-0.6); Eosinophils % 3.4 %; Hematocrit 27.7 % (37.5-50.1); Hemoglobin 8.5 g/dL (12.9-16.9); Immature Granulocytes % 0.4 % (0-4); Lymphocytes # 1.6 K/mcL (0.6-4.6); Lymphocytes % 12.9 %; Mean Corpuscular HGB Conc 30.7 g/dL (31.6-35.5); Mean Corpuscular Hemoglobin 26.7 pg (28.0-33.3); Mean Corpuscular Volume 87.1 fL (83.0-100.0); Mean Platelet Volume 10.2 fL (9.4-12.4); Monocytes % 8.3 %; Neutrophils # 8.9 K/mcL (1.6-8.9); Platelet Count 381 K/mcL (140-400); Red Blood Count 3.18 M/mcL (4.19-5.50); Red Cell Distribution Width 15.6 % (11.5-14.5); Segmented Neutrophils % 74.2 %
[2021-09-20] MEDS: levETIRAcetam 500 MG/5 ML UDC GTUBE SCH ×2 (12:13→23:31)
[2021-09-20] MEDS: Ferrous Sulfate Oral Soln 300 MG/5 ML UDC GTUBE SCH (12:14)
[2021-09-20] MEDS: Apixaban 5 MG TABLET GTUBE SCH ×2 (12:14→23:31)
[2021-09-20] MEDS: Lactobacillus 1 EACH CAP.SPRINK GTUBE SCH (12:14)
[2021-09-20] MEDS: Finasteride 5 MG TABLET PO SCH (12:14)
[2021-09-21] MEDS: Insulin LISPRO 300 UNITS/3 ML VIAL SUBQ SCH ×4 (00:45→17:59)
[2021-09-21 02:40] LABS: Basophils # 0.1 K/mcL (0.0-0.2); Basophils % 0.6 %; Eosinophils # 0.3 K/mcL (0.0-0.6); Eosinophils % 2.2 %; Hematocrit 26.2 % (37.5-50.1); Hemoglobin 8.2 g/dL (12.9-16.9); Immature Granulocytes % 0.4 % (0-4); Lymphocytes # 1.4 K/mcL (0.6-4.6); Lymphocytes % 11.6 %; Mean Corpuscular HGB Conc 31.3 g/dL (31.6-35.5); Mean Corpuscular Hemoglobin 27.2 pg (28.0-33.3); Mean Platelet Volume 9.6 fL (9.4-12.4); Monocytes # 0.9 K/mcL (0.0-1.3); Monocytes % 7.2 %; Neutrophils # 9.2 K/mcL (1.6-8.9); Platelet Count 413 K/mcL (140-400); Red Blood Count 3.01 M/mcL (4.19-5.50); Red Cell Distribution Width 15.6 % (11.5-14.5); White Blood Count 11.9 K/mcL (4.3-11.1)
[2021-09-21 03:14] LABS: BUN/Creatinine Ratio 33 (6-26); Blood Urea Nitrogen 17 mg/dL (8-23); Calcium 8.4 mg/dL (8.6-10.3); Carbon Dioxide 27 mEq/L (23-29); Chloride 106 mEq/L (98-107); Glucose 298 mg/dL (70-105); Magnesium 1.8 mg/dL (1.6-2.6); Osmolality,Calculated 307 (280-300); Phosphorous 2.2 mg/dL (2.7-4.5); Potassium 3.3 mEq/L (3.5-5.1); Sodium 142 mEq/L (136-145); eGFR For African Americans > 60 (> 60); eGFR For Non-African Americans > 60 (> 60)
[2021-09-21] MEDS: Acetylcysteine 10% 2 ML INHSOL IH SCH ×4 (03:31→20:32)
[2021-09-21] MEDS: Ipratropium/Albuterol Neb 3 ML IH SCH ×4 (03:31→20:27)
[2021-09-21] MEDS: Finasteride 5 MG TABLET PO SCH (10:28)
[2021-09-21] MEDS: Lactobacillus 1 EACH CAP.SPRINK GTUBE SCH (10:28)
[2021-09-21] MEDS: Apixaban 5 MG TABLET GTUBE SCH ×2 (10:28→23:04)
[2021-09-21] MEDS: Ferrous Sulfate Oral Soln 300 MG/5 ML UDC GTUBE SCH (10:29)
[2021-09-21] MEDS: levETIRAcetam 500 MG/5 ML UDC GTUBE SCH ×2 (10:29→23:04)
[2021-09-22] MEDS: Insulin LISPRO 300 UNITS/3 ML VIAL SUBQ SCH ×4 (00:01→17:55)
[2021-09-22 01:47] LABS: Basophils # 0.1 K/mcL (0.0-0.2); Basophils % 0.4 %; Eosinophils # 0.3 K/mcL (0.0-0.6); Eosinophils % 1.8 %; Hematocrit 25.2 % (37.5-50.1); Hemoglobin 7.7 g/dL (12.9-16.9); Immature Granulocytes % 0.4 % (0-4); Lymphocytes # 1.9 K/mcL (0.6-4.6); Lymphocytes % 12.6 %; Mean Corpuscular HGB Conc 30.6 g/dL (31.6-35.5); Mean Corpuscular Hemoglobin 26.9 pg (28.0-33.3); Mean Corpuscular Volume 88.1 fL (83.0-100.0); Mean Platelet Volume 10.1 fL (9.4-12.4); Monocytes % 6.6 %; Neutrophils # 11.8 K/mcL (1.6-8.9); Platelet Count 372 K/mcL (140-400); Red Blood Count 2.86 M/mcL (4.19-5.50); Red Cell Distribution Width 15.9 % (11.5-14.5); Segmented Neutrophils % 78.2 %
[2021-09-22 02:02] LABS: BUN/Creatinine Ratio 33 (6-26); Blood Urea Nitrogen 18 mg/dL (8-23); Calcium 8.4 mg/dL (8.6-10.3); Carbon Dioxide 28 mEq/L (23-29); Chloride 107 mEq/L (98-107); Glucose 242 mg/dL (70-105); Magnesium 1.7 mg/dL (1.6-2.6); Osmolality,Calculated 306 (280-300); Potassium 3.7 mEq/L (3.5-5.1); Sodium 143 mEq/L (136-145); eGFR For African Americans > 60 (> 60); eGFR For Non-African Americans > 60 (> 60)
[2021-09-22] MEDS: Acetylcysteine 10% 2 ML INHSOL IH SCH ×4 (03:52→22:39)
[2021-09-22] MEDS: Ipratropium/Albuterol Neb 3 ML IH SCH ×4 (03:52→22:39)
[2021-09-22 08:51] LABS: Adenovirus Not Detected (Not Detect); Coronavirus 229E Not Detected (Not Detect); Coronavirus HKU1 Not Detected (Not Detect); Coronavirus NL63 Not Detected (Not Detect); Coronavirus OC43 Not Detected (Not Detect); Human Metapneumovirus Not Detected (Not Detect); Human Rhinovirus/Enterovirus Not Detected (Not Detect); Influenza A Subtype 2009 H1 Not Detected (Not Detect); SARS-CoV-2 Not Detected (Not Detect)
[2021-09-22 08:52] LABS: Bordetella Pertussis Not Detected (Not Detect); Chlamydophila pneumoniae Not Detected (Not Detect); Influenza B Not Detected (Not Detect); Mycoplasma pneumoniae Not Detected (Not Detect); Parainfluenza Virus 1 Not Detected (Not Detect); Parainfluenza Virus 2 Not Detected (Not Detect); Parainfluenza Virus 3 Not Detected (Not Detect); Parainfluenza Virus 4 Not Detected (Not Detect); Respiratory Syncytial Virus Not Detected (Not Detect)
[2021-09-22] MEDS: levETIRAcetam 500 MG/5 ML UDC GTUBE SCH ×2 (10:12→21:51)
[2021-09-22] MEDS: Ferrous Sulfate Oral Soln 300 MG/5 ML UDC GTUBE SCH (10:13)
[2021-09-22] MEDS: Finasteride 5 MG TABLET PO SCH (10:13)
[2021-09-22] MEDS: Apixaban 5 MG TABLET GTUBE SCH ×2 (10:13→21:46)
[2021-09-22] MEDS: Lactobacillus 1 EACH CAP.SPRINK GTUBE SCH (10:13)
[2021-09-23] MEDS: Insulin LISPRO 300 UNITS/3 ML VIAL SUBQ SCH ×4 (01:10→17:42)
[2021-09-23] MEDS: Acetylcysteine 10% 2 ML INHSOL IH SCH ×4 (03:48→22:28)
[2021-09-23] MEDS: Ipratropium/Albuterol Neb 3 ML IH SCH ×4 (03:48→22:28)
[2021-09-23 04:13] LABS: Bilirubin,Urine Negative (Negative); Blood,Urine Large (Negative); Budding Yeast,Urine Many per hpf (None Seen); Clarity,Urine Ex.Turbid (Clear); Color,Urine Yellow (Yellow); Glucose,Urine (UA) >=1000 mg/dL (Normal); Ketones,Urine Trace mg/dL (Negative); Leukocyte Esterase,Urine Large (Negative); Mucus,Urine Few per lpf (None-Few); Nitrite,Urine Negative (Negative); Protein,Urine 100 mg/dL (Neg-Trace); RBC,Urine TNTC per hpf (0-3); Specific Gravity,Urine 1.021 (1.010-1.025); Urobilinogen,Urine Normal (Normal); WBC,Urine TNTC per hpf (0-3)
[2021-09-23] MEDS ORDERED: Lidocaine Viscous Oral Soln 15 ML SOLUTION ONE (10:10)
[2021-09-23] MEDS ORDERED: Lidocaine Viscous Oral Soln 15 ML SOLUTION MM ONE (10:26)
[2021-09-23] MEDS: Finasteride 5 MG TABLET PO SCH (11:09)
[2021-09-23] MEDS: Lactobacillus 1 EACH CAP.SPRINK GTUBE SCH (11:09)
[2021-09-23] MEDS: Apixaban 5 MG TABLET GTUBE SCH ×2 (11:09→19:56)
[2021-09-23] MEDS: levETIRAcetam 500 MG/5 ML UDC GTUBE SCH ×2 (11:11→19:56)
[2021-09-23] MEDS: Insulin DETEMIR 100 UNIT/ML X5UNITS SUBQ SCH (12:17)
[2021-09-23] MEDS: Ferrous Sulfate Oral Soln 300 MG/5 ML UDC GTUBE SCH (12:18)
[2021-09-23 15:17] LABS: Basophils # 0.1 K/mcL (0.0-0.2); Basophils % 0.5 %; Eosinophils # 0.4 K/mcL (0.0-0.6); Eosinophils % 2.9 %; Hemoglobin 8.3 g/dL (12.9-16.9); Immature Granulocytes % 0.4 % (0-4); Lymphocytes # 1.4 K/mcL (0.6-4.6); Mean Corpuscular HGB Conc 30.7 g/dL (31.6-35.5); Mean Corpuscular Hemoglobin 27.2 pg (28.0-33.3); Mean Corpuscular Volume 88.5 fL (83.0-100.0); Mean Platelet Volume 10.4 fL (9.4-12.4); Monocytes # 0.7 K/mcL (0.0-1.3); Neutrophils # 9.4 K/mcL (1.6-8.9); Platelet Count 388 K/mcL (140-400); Red Blood Count 3.05 M/mcL (4.19-5.50); Red Cell Distribution Width 15.7 % (11.5-14.5); Segmented Neutrophils % 78.2 %; White Blood Count 12.1 K/mcL (4.3-11.1)
[2021-09-23 15:34] LABS: BUN/Creatinine Ratio 38 (6-26); Blood Urea Nitrogen 18 mg/dL (8-23); Calcium 8.3 mg/dL (8.6-10.3); Carbon Dioxide 31 mEq/L (23-29); Chloride 104 mEq/L (98-107); Glucose 220 mg/dL (70-105); Osmolality,Calculated 301 (280-300); Potassium 4.1 mEq/L (3.5-5.1); Sodium 141 mEq/L (136-145); eGFR For African Americans > 60 (> 60); eGFR For Non-African Americans > 60 (> 60)
[2021-09-24] MEDS: Insulin LISPRO 300 UNITS/3 ML VIAL SUBQ SCH ×4 (01:16→16:51)
[2021-09-24] MEDS: Ipratropium/Albuterol Neb 3 ML IH SCH ×4 (03:50→22:51)
[2021-09-24] MEDS: Acetylcysteine 10% 2 ML INHSOL IH SCH ×4 (03:50→22:51)
[2021-09-24 10:33] LABS: Basophils # 0.1 K/mcL (0.0-0.2); Basophils % 0.7 %; Eosinophils # 0.3 K/mcL (0.0-0.6); Hematocrit 23.7 % (37.5-50.1); Hemoglobin 7.4 g/dL (12.9-16.9); Immature Granulocytes % 0.6 % (0-4); Lymphocytes # 1.3 K/mcL (0.6-4.6); Lymphocytes % 15.2 %; Mean Corpuscular HGB Conc 31.2 g/dL (31.6-35.5); Mean Corpuscular Hemoglobin 27.2 pg (28.0-33.3); Mean Corpuscular Volume 87.1 fL (83.0-100.0); Mean Platelet Volume 10.5 fL (9.4-12.4); Monocytes # 0.7 K/mcL (0.0-1.3); Monocytes % 8.2 %; Neutrophils # 6.1 K/mcL (1.6-8.9); Platelet Count 386 K/mcL (140-400); Red Blood Count 2.72 M/mcL (4.19-5.50); Red Cell Distribution Width 15.7 % (11.5-14.5); Segmented Neutrophils % 71.3 %; White Blood Count 8.5 K/mcL (4.3-11.1)
[2021-09-24 10:52] LABS: BUN/Creatinine Ratio 38 (6-26); Blood Urea Nitrogen 19 mg/dL (8-23); Calcium 8.2 mg/dL (8.6-10.3); Carbon Dioxide 30 mEq/L (23-29); Chloride 103 mEq/L (98-107); Glucose 245 mg/dL (70-105); Magnesium 1.5 mg/dL (1.6-2.6); Osmolality,Calculated 298 (280-300); Sodium 139 mEq/L (136-145); eGFR For African Americans > 60 (> 60); eGFR For Non-African Americans > 60 (> 60)
[2021-09-24] MEDS: levETIRAcetam 500 MG/5 ML UDC GTUBE SCH ×2 (11:14→21:59)
[2021-09-24] MEDS: Lactobacillus 1 EACH CAP.SPRINK GTUBE SCH (11:14)
[2021-09-24] MEDS: Finasteride 5 MG TABLET PO SCH (11:15)
[2021-09-24] MEDS: Apixaban 5 MG TABLET GTUBE SCH ×2 (11:15→21:59)
[2021-09-24] MEDS: Insulin DETEMIR 100 UNIT/ML X5UNITS SUBQ SCH (11:15)
[2021-09-24] MEDS: Ferrous Sulfate Oral Soln 300 MG/5 ML UDC GTUBE SCH (11:15)
[2021-09-25] MEDS: MetroNIDAZOLE 500 MG/100 ML 500 MG/100 ML BAG IVPB SCH ×4 (00:24→23:58)
[2021-09-25] MEDS: Insulin LISPRO 300 UNITS/3 ML VIAL SUBQ SCH ×5 (00:26→23:59)
[2021-09-25] MEDS: Acetylcysteine 10% 2 ML INHSOL IH SCH ×4 (03:34→22:33)
[2021-09-25] MEDS: Ipratropium/Albuterol Neb 3 ML IH SCH ×4 (03:34→22:33)
[2021-09-25] MEDS: levETIRAcetam 500 MG/5 ML UDC GTUBE SCH ×2 (09:47→21:28)
[2021-09-25] MEDS: Apixaban 5 MG TABLET GTUBE SCH ×2 (09:47→21:29)
[2021-09-25] MEDS: Lactobacillus 1 EACH CAP.SPRINK GTUBE SCH (09:47)
[2021-09-25] MEDS: Finasteride 5 MG TABLET PO SCH (09:47)
[2021-09-25] MEDS: Ferrous Sulfate Oral Soln 300 MG/5 ML UDC GTUBE SCH (09:48)
[2021-09-25 10:05] LABS: Basophils # 0.1 K/mcL (0.0-0.2); Basophils % 0.6 %; Eosinophils # 0.3 K/mcL (0.0-0.6); Eosinophils % 2.7 %; Hematocrit 25.5 % (37.5-50.1); Hemoglobin 7.9 g/dL (12.9-16.9); Immature Granulocytes % 0.4 % (0-4); Lymphocytes # 1.2 K/mcL (0.6-4.6); Lymphocytes % 11.5 %; Mean Corpuscular Hemoglobin 26.9 pg (28.0-33.3); Mean Corpuscular Volume 86.7 fL (83.0-100.0); Mean Platelet Volume 10.4 fL (9.4-12.4); Monocytes # 0.7 K/mcL (0.0-1.3); Monocytes % 6.7 %; Neutrophils # 7.8 K/mcL (1.6-8.9); Platelet Count 447 K/mcL (140-400); Red Blood Count 2.94 M/mcL (4.19-5.50); Red Cell Distribution Width 15.6 % (11.5-14.5); Segmented Neutrophils % 78.1 %
[2021-09-25 10:38] LABS: BUN/Creatinine Ratio 35 (6-26); Blood Urea Nitrogen 18 mg/dL (8-23); Calcium 8.3 mg/dL (8.6-10.3); Carbon Dioxide 29 mEq/L (23-29); Chloride 101 mEq/L (98-107); Glucose 283 mg/dL (70-105); Magnesium 1.9 mg/dL (1.6-2.6); Osmolality,Calculated 298 (280-300); Potassium 3.9 mEq/L (3.5-5.1); Sodium 138 mEq/L (136-145); eGFR For African Americans > 60 (> 60); eGFR For Non-African Americans > 60 (> 60)
[2021-09-25] MEDS: Insulin DETEMIR 100 UNIT/ML X5UNITS SUBQ SCH (12:11)
[2021-09-26] MEDS: Ipratropium/Albuterol Neb 3 ML IH SCH ×4 (03:43→20:44)
[2021-09-26] MEDS: Acetylcysteine 10% 2 ML INHSOL IH SCH ×4 (03:43→20:44)
[2021-09-26 03:48] LABS: Basophils # 0.1 K/mcL (0.0-0.2); Basophils % 0.6 %; Eosinophils # 0.3 K/mcL (0.0-0.6); Eosinophils % 2.9 %; Hematocrit 22.5 % (37.5-50.1); Hemoglobin 6.9 g/dL (12.9-16.9); Immature Granulocytes % 0.4 % (0-4); Lymphocytes # 1.4 K/mcL (0.6-4.6); Lymphocytes % 15.5 %; Mean Corpuscular HGB Conc 30.7 g/dL (31.6-35.5); Mean Corpuscular Hemoglobin 26.8 pg (28.0-33.3); Mean Corpuscular Volume 87.5 fL (83.0-100.0); Mean Platelet Volume 10.6 fL (9.4-12.4); Monocytes # 0.7 K/mcL (0.0-1.3); Monocytes % 7.9 %; Neutrophils # 6.8 K/mcL (1.6-8.9); Platelet Count 401 K/mcL (140-400); Red Blood Count 2.57 M/mcL (4.19-5.50); Red Cell Distribution Width 15.6 % (11.5-14.5); Segmented Neutrophils % 72.7 %; White Blood Count 9.3 K/mcL (4.3-11.1)
[2021-09-26 04:01] LABS: BUN/Creatinine Ratio 37 (6-26); Blood Urea Nitrogen 18 mg/dL (8-23); Calcium 8.2 mg/dL (8.6-10.3); Carbon Dioxide 31 mEq/L (23-29); Chloride 101 mEq/L (98-107); Glucose 240 mg/dL (70-105); Osmolality,Calculated 296 (280-300); Potassium 3.9 mEq/L (3.5-5.1); Sodium 138 mEq/L (136-145); eGFR For African Americans > 60 (> 60); eGFR For Non-African Americans > 60 (> 60)
[2021-09-26] MEDS: Insulin LISPRO 300 UNITS/3 ML VIAL SUBQ SCH ×3 (06:01→17:35)
[2021-09-26] MEDS ORDERED: 0.9 % Sodium Chloride 250 ML ONE (08:01)
[2021-09-26] MEDS: levETIRAcetam 500 MG/5 ML UDC GTUBE SCH ×2 (08:17→22:20)
[2021-09-26] MEDS: Lactobacillus 1 EACH CAP.SPRINK GTUBE SCH (08:18)
[2021-09-26] MEDS: Finasteride 5 MG TABLET PO SCH (08:18)
[2021-09-26] MEDS: MetroNIDAZOLE 500 MG/100 ML 500 MG/100 ML BAG IVPB SCH ×3 (08:19→22:17)
[2021-09-26] MEDS: Insulin DETEMIR 100 UNIT/ML X5UNITS SUBQ SCH (08:28)
[2021-09-26] MEDS: Apixaban 5 MG TABLET GTUBE SCH ×2 (08:28→22:17)
[2021-09-26] MEDS: Ferrous Sulfate Oral Soln 300 MG/5 ML UDC GTUBE SCH (09:32)
[2021-09-26 12:05] LABS: Hematocrit 28.8 % (37.5-50.1)
[2021-09-26 12:15] LABS: Hemoglobin 9.6 g/dL (12.9-16.9)
[2021-09-27] MEDS: Insulin LISPRO 300 UNITS/3 ML VIAL SUBQ SCH ×5 (02:00→23:45)
[2021-09-27] MEDS: Ipratropium/Albuterol Neb 3 ML IH SCH ×4 (04:12→21:36)
[2021-09-27] MEDS: Acetylcysteine 10% 2 ML INHSOL IH SCH ×4 (04:12→21:36)
[2021-09-27 07:55] LABS: Basophils # 0.1 K/mcL (0.0-0.2); Basophils % 0.8 %; Eosinophils # 0.4 K/mcL (0.0-0.6); Eosinophils % 4.6 %; Hematocrit 27.6 % (37.5-50.1); Hemoglobin 8.8 g/dL (12.9-16.9); Immature Granulocytes % 0.8 % (0-4); Lymphocytes # 1.4 K/mcL (0.6-4.6); Lymphocytes % 16.2 %; Mean Corpuscular HGB Conc 31.9 g/dL (31.6-35.5); Mean Corpuscular Hemoglobin 27.4 pg (28.0-33.3); Mean Platelet Volume 10.1 fL (9.4-12.4); Monocytes # 0.7 K/mcL (0.0-1.3); Monocytes % 8.3 %; Neutrophils # 5.9 K/mcL (1.6-8.9); Platelet Count 400 K/mcL (140-400); Red Blood Count 3.21 M/mcL (4.19-5.50); Red Cell Distribution Width 15.4 % (11.5-14.5); Segmented Neutrophils % 69.3 %; White Blood Count 8.6 K/mcL (4.3-11.1)
[2021-09-27] MEDS: Lactobacillus 1 EACH CAP.SPRINK GTUBE SCH (10:59)
[2021-09-27] MEDS: levETIRAcetam 500 MG/5 ML UDC GTUBE SCH ×2 (10:59→23:14)
[2021-09-27] MEDS: Ferrous Sulfate Oral Soln 300 MG/5 ML UDC GTUBE SCH (10:59)
[2021-09-27] MEDS: Finasteride 5 MG TABLET PO SCH (10:59)
[2021-09-27] MEDS: Insulin DETEMIR 100 UNIT/ML X5UNITS SUBQ SCH (11:00)
[2021-09-27] MEDS: Apixaban 5 MG TABLET GTUBE SCH ×2 (11:00→23:14)
[2021-09-27] MEDS: MetroNIDAZOLE 500 MG/100 ML 500 MG/100 ML BAG IVPB SCH ×3 (11:03→23:13)
[2021-09-27] MEDS: Melatonin 3 MG TABLET GTUBE PRN (23:14)
[2021-09-27] MEDS: Chlorhexidine Rinse 15 ML MOUTHWASH MM SCH (23:38)
[2021-09-28] MEDS: Ipratropium/Albuterol Neb 3 ML IH SCH ×4 (03:35→22:27)
[2021-09-28] MEDS: Acetylcysteine 10% 2 ML INHSOL IH SCH ×4 (03:36→22:27)
[2021-09-28] MEDS: Insulin LISPRO 300 UNITS/3 ML VIAL SUBQ SCH ×3 (05:55→17:26)
[2021-09-28 05:58] LABS: Basophils # 0.1 K/mcL (0.0-0.2); Basophils % 0.6 %; Eosinophils # 0.3 K/mcL (0.0-0.6); Eosinophils % 3.7 %; Hematocrit 30.9 % (37.5-50.1); Hemoglobin 9.7 g/dL (12.9-16.9); Immature Granulocytes % 0.9 % (0-4); Lymphocytes # 1.4 K/mcL (0.6-4.6); Lymphocytes % 17.8 %; Mean Corpuscular HGB Conc 31.4 g/dL (31.6-35.5); Mean Corpuscular Hemoglobin 27.4 pg (28.0-33.3); Mean Corpuscular Volume 87.3 fL (83.0-100.0); Monocytes # 0.7 K/mcL (0.0-1.3); Monocytes % 8.7 %; Neutrophils # 5.4 K/mcL (1.6-8.9); Platelet Count 481 K/mcL (140-400); Red Blood Count 3.54 M/mcL (4.19-5.50); Red Cell Distribution Width 15.6 % (11.5-14.5); Segmented Neutrophils % 68.3 %; White Blood Count 7.9 K/mcL (4.3-11.1)
[2021-09-28 06:19] LABS: BUN/Creatinine Ratio 29 (6-26); Blood Urea Nitrogen 15 mg/dL (8-23); Calcium 8.5 mg/dL (8.6-10.3); Carbon Dioxide 34 mEq/L (23-29); Chloride 99 mEq/L (98-107); Glucose 206 mg/dL (70-105); Osmolality,Calculated 295 (280-300); Potassium 3.8 mEq/L (3.5-5.1); Sodium 139 mEq/L (136-145); eGFR For African Americans > 60 (> 60); eGFR For Non-African Americans > 60 (> 60)
[2021-09-28] MEDS: Chlorhexidine Rinse 15 ML MOUTHWASH MM SCH ×3 (09:10→20:21)
[2021-09-28] MEDS: levETIRAcetam 500 MG/5 ML UDC GTUBE SCH ×2 (09:10→20:19)
[2021-09-28] MEDS: Lactobacillus 1 EACH CAP.SPRINK GTUBE SCH (09:11)
[2021-09-28] MEDS: Finasteride 5 MG TABLET PO SCH (09:11)
[2021-09-28] MEDS: Apixaban 5 MG TABLET GTUBE SCH ×2 (09:12→20:19)
[2021-09-28] MEDS: MetroNIDAZOLE 500 MG/100 ML 500 MG/100 ML BAG IVPB SCH ×3 (09:33→23:41)
[2021-09-28] MEDS: Insulin DETEMIR 100 UNIT/ML X5UNITS SUBQ SCH (09:38)
[2021-09-28] MEDS: Ferrous Sulfate Oral Soln 300 MG/5 ML UDC GTUBE SCH (12:10)
[2021-09-29] MEDS: Insulin LISPRO 300 UNITS/3 ML VIAL SUBQ SCH ×4 (00:35→17:35)
[2021-09-29] MEDS: Ipratropium/Albuterol Neb 3 ML IH SCH ×4 (04:11→22:42)
[2021-09-29] MEDS: Acetylcysteine 10% 2 ML INHSOL IH SCH ×4 (04:12→22:42)
[2021-09-29] MEDS: MetroNIDAZOLE 500 MG/100 ML 500 MG/100 ML BAG IVPB SCH ×2 (09:45→17:22)
[2021-09-29] MEDS: Lactobacillus 1 EACH CAP.SPRINK GTUBE SCH (09:47)
[2021-09-29] MEDS: Ferrous Sulfate Oral Soln 300 MG/5 ML UDC GTUBE SCH (09:47)
[2021-09-29] MEDS: Apixaban 5 MG TABLET GTUBE SCH ×2 (09:47→20:49)
[2021-09-29] MEDS: levETIRAcetam 500 MG/5 ML UDC GTUBE SCH ×2 (09:47→20:49)
[2021-09-29] MEDS: Finasteride 5 MG TABLET PO SCH (09:47)
[2021-09-29] MEDS: Chlorhexidine Rinse 15 ML MOUTHWASH MM SCH ×2 (09:47→20:48)
[2021-09-29] MEDS: Insulin DETEMIR 100 UNIT/ML X5UNITS SUBQ SCH (09:48)
[2021-09-29 11:59] LABS: Basophils # 0.1 K/mcL (0.0-0.2); Basophils % 0.7 %; Eosinophils # 0.4 K/mcL (0.0-0.6); Eosinophils % 5.1 %; Hematocrit 28.7 % (37.5-50.1); Hemoglobin 9.1 g/dL (12.9-16.9); Lymphocytes # 1.3 K/mcL (0.6-4.6); Lymphocytes % 16.6 %; Mean Corpuscular HGB Conc 31.7 g/dL (31.6-35.5); Mean Corpuscular Hemoglobin 27.1 pg (28.0-33.3); Mean Corpuscular Volume 85.4 fL (83.0-100.0); Mean Platelet Volume 10.5 fL (9.4-12.4); Monocytes # 0.8 K/mcL (0.0-1.3); Monocytes % 10.1 %; Neutrophils # 5.4 K/mcL (1.6-8.9); Platelet Count 474 K/mcL (140-400); Red Blood Count 3.36 M/mcL (4.19-5.50); Red Cell Distribution Width 15.8 % (11.5-14.5); Segmented Neutrophils % 66.5 %; White Blood Count 8.1 K/mcL (4.3-11.1)
[2021-09-29] MEDS: Ketoconazole Shampoo 120 ML BOTTLE TP SCH (12:52)
[2021-09-29] MEDS: Fluconazole 40 MG/ML MLS GTUBE SCH (14:39)
[2021-09-29 15:36] LABS: BUN/Creatinine Ratio 33 (6-26); Blood Urea Nitrogen 15 mg/dL (8-23); Calcium 8.2 mg/dL (8.6-10.3); Carbon Dioxide 35 mEq/L (23-29); Chloride 99 mEq/L (98-107); Glucose 289 mg/dL (70-105); Osmolality,Calculated 299 (280-300); Potassium 4.1 mEq/L (3.5-5.1); Sodium 139 mEq/L (136-145); eGFR For African Americans > 60 (> 60); eGFR For Non-African Americans > 60 (> 60)
[2021-09-30] MEDS: MetroNIDAZOLE 500 MG/100 ML 500 MG/100 ML BAG IVPB SCH ×3 (00:26→18:25)
[2021-09-30] MEDS: Insulin LISPRO 300 UNITS/3 ML VIAL SUBQ SCH ×4 (00:36→18:26)
[2021-09-30] MEDS: Acetylcysteine 10% 2 ML INHSOL IH SCH ×4 (03:36→22:32)
[2021-09-30] MEDS: Ipratropium/Albuterol Neb 3 ML IH SCH ×4 (03:36→22:32)
[2021-09-30 05:43] LABS: Basophils # 0.1 K/mcL (0.0-0.2); Basophils % 0.6 %; Eosinophils # 0.3 K/mcL (0.0-0.6); Eosinophils % 4.1 %; Hematocrit 27.4 % (37.5-50.1); Hemoglobin 8.5 g/dL (12.9-16.9); Immature Granulocytes % 0.8 % (0-4); Lymphocytes # 1.5 K/mcL (0.6-4.6); Lymphocytes % 19.6 %; Mean Platelet Volume 10.1 fL (9.4-12.4); Monocytes # 0.7 K/mcL (0.0-1.3); Monocytes % 9.1 %; Neutrophils # 5.1 K/mcL (1.6-8.9); Platelet Count 501 K/mcL (140-400); Red Blood Count 3.15 M/mcL (4.19-5.50); Red Cell Distribution Width 15.9 % (11.5-14.5); Segmented Neutrophils % 65.8 %; White Blood Count 7.8 K/mcL (4.3-11.1)
[2021-09-30 05:57] LABS: BUN/Creatinine Ratio 31 (6-26); Blood Urea Nitrogen 16 mg/dL (8-23); Calcium 8.1 mg/dL (8.6-10.3); Carbon Dioxide 35 mEq/L (23-29); Chloride 100 mEq/L (98-107); Glucose 253 mg/dL (70-105); Osmolality,Calculated 298 (280-300); Sodium 139 mEq/L (136-145); eGFR For African Americans > 60 (> 60); eGFR For Non-African Americans > 60 (> 60)
[2021-09-30] MEDS: Insulin DETEMIR 100 UNIT/ML X5UNITS SUBQ SCH (10:19)
[2021-09-30] MEDS: Fluconazole 40 MG/ML MLS GTUBE SCH (10:19)
[2021-09-30] MEDS: Chlorhexidine Rinse 15 ML MOUTHWASH MM SCH ×2 (10:20→20:02)
[2021-09-30] MEDS: Finasteride 5 MG TABLET PO SCH (10:20)
[2021-09-30] MEDS: Ferrous Sulfate Oral Soln 300 MG/5 ML UDC GTUBE SCH (10:20)
[2021-09-30] MEDS: Apixaban 5 MG TABLET GTUBE SCH ×2 (10:20→20:02)
[2021-09-30] MEDS: levETIRAcetam 500 MG/5 ML UDC GTUBE SCH ×2 (10:20→20:02)
[2021-09-30] MEDS: Lactobacillus 1 EACH CAP.SPRINK GTUBE SCH (10:21)
[2021-10-01] MEDS: MetroNIDAZOLE 500 MG/100 ML 500 MG/100 ML BAG IVPB SCH ×3 (01:00→17:36)
[2021-10-01] MEDS: Insulin LISPRO 300 UNITS/3 ML VIAL SUBQ SCH ×4 (01:27→17:36)
[2021-10-01] MEDS: Ipratropium/Albuterol Neb 3 ML IH SCH ×4 (03:31→22:41)
[2021-10-01] MEDS: Acetylcysteine 10% 2 ML INHSOL IH SCH ×4 (03:31→22:41)
[2021-10-01 04:12] LABS: Basophils % 0.4 %; Eosinophils # 0.2 K/mcL (0.0-0.6); Eosinophils % 2.3 %; Hematocrit 28.2 % (37.5-50.1); Immature Granulocytes % 0.7 % (0-4); Lymphocytes # 1.4 K/mcL (0.6-4.6); Lymphocytes % 13.3 %; Mean Corpuscular HGB Conc 31.9 g/dL (31.6-35.5); Mean Corpuscular Hemoglobin 27.7 pg (28.0-33.3); Mean Corpuscular Volume 86.8 fL (83.0-100.0); Monocytes # 0.8 K/mcL (0.0-1.3); Monocytes % 7.9 %; Neutrophils # 7.7 K/mcL (1.6-8.9); Platelet Count 522 K/mcL (140-400); Red Blood Count 3.25 M/mcL (4.19-5.50); Red Cell Distribution Width 15.9 % (11.5-14.5); Segmented Neutrophils % 75.4 %; White Blood Count 10.2 K/mcL (4.3-11.1)
[2021-10-01 04:34] LABS: BUN/Creatinine Ratio 30 (6-26); Blood Urea Nitrogen 15 mg/dL (8-23); Calcium 8.5 mg/dL (8.6-10.3); Carbon Dioxide 35 mEq/L (23-29); Chloride 98 mEq/L (98-107); Glucose 264 mg/dL (70-105); Osmolality,Calculated 294 (280-300); Potassium 3.8 mEq/L (3.5-5.1); Sodium 137 mEq/L (136-145); eGFR For African Americans > 60 (> 60); eGFR For Non-African Americans > 60 (> 60)
[2021-10-01] MEDS ORDERED: Insulin DETEMIR 100 UNIT/ML X5UNITS SUBQ SCH (09:00)
[2021-10-01] MEDS: Fluconazole 40 MG/ML MLS GTUBE SCH (11:10)
[2021-10-01] MEDS: levETIRAcetam 500 MG/5 ML UDC GTUBE SCH (11:10)
[2021-10-01] MEDS: Ferrous Sulfate Oral Soln 300 MG/5 ML UDC GTUBE SCH (11:10)
[2021-10-01] MEDS: Lactobacillus 1 EACH CAP.SPRINK GTUBE SCH (11:11)
[2021-10-01] MEDS: Finasteride 5 MG TABLET PO SCH (11:11)
[2021-10-01] MEDS: Apixaban 5 MG TABLET GTUBE SCH (11:12)
[2021-10-01] MEDS: Chlorhexidine Rinse 15 ML MOUTHWASH MM SCH (11:29)
[2021-10-02] MEDS: levETIRAcetam 500 MG/5 ML UDC GTUBE SCH ×3 (00:47→21:22)
[2021-10-02] MEDS: Chlorhexidine Rinse 15 ML MOUTHWASH MM SCH ×2 (00:47→08:10)
[2021-10-02] MEDS: MetroNIDAZOLE 500 MG/100 ML 500 MG/100 ML BAG IVPB SCH ×4 (00:48→23:46)
[2021-10-02] MEDS: Melatonin 3 MG TABLET GTUBE PRN (00:48)
[2021-10-02] MEDS: Apixaban 5 MG TABLET GTUBE SCH ×3 (00:48→21:23)
[2021-10-02] MEDS: Insulin LISPRO 300 UNITS/3 ML VIAL SUBQ SCH ×4 (01:57→16:50)
[2021-10-02 02:44] LABS: Basophils # 0.1 K/mcL (0.0-0.2); Basophils % 0.4 %; Eosinophils # 0.2 K/mcL (0.0-0.6); Eosinophils % 1.6 %; Hematocrit 29.8 % (37.5-50.1); Hemoglobin 9.3 g/dL (12.9-16.9); Immature Granulocytes % 0.8 % (0-4); Lymphocytes # 1.2 K/mcL (0.6-4.6); Lymphocytes % 10.2 %; Mean Corpuscular HGB Conc 31.2 g/dL (31.6-35.5); Mean Corpuscular Hemoglobin 27.1 pg (28.0-33.3); Mean Corpuscular Volume 86.9 fL (83.0-100.0); Mean Platelet Volume 10.1 fL (9.4-12.4); Monocytes # 0.9 K/mcL (0.0-1.3); Monocytes % 7.4 %; Neutrophils # 9.7 K/mcL (1.6-8.9); Platelet Count 559 K/mcL (140-400); Red Blood Count 3.43 M/mcL (4.19-5.50); Red Cell Distribution Width 15.9 % (11.5-14.5); Segmented Neutrophils % 79.6 %; White Blood Count 12.2 K/mcL (4.3-11.1)
[2021-10-02 03:08] LABS: BUN/Creatinine Ratio 33 (6-26); Blood Urea Nitrogen 15 mg/dL (8-23); Calcium 8.6 mg/dL (8.6-10.3); Carbon Dioxide 31 mEq/L (23-29); Chloride 99 mEq/L (98-107); Glucose 219 mg/dL (70-105); Osmolality,Calculated 292 (280-300); Potassium 3.8 mEq/L (3.5-5.1); Sodium 137 mEq/L (136-145); eGFR For African Americans > 60 (> 60); eGFR For Non-African Americans > 60 (> 60)
[2021-10-02] MEDS: Ipratropium/Albuterol Neb 3 ML IH SCH ×4 (04:01→22:46)
[2021-10-02] MEDS: Acetylcysteine 10% 2 ML INHSOL IH SCH ×4 (04:01→22:47)
[2021-10-02] MEDS: Ferrous Sulfate Oral Soln 300 MG/5 ML UDC GTUBE SCH (08:09)
[2021-10-02] MEDS: Lactobacillus 1 EACH CAP.SPRINK GTUBE SCH (08:10)
[2021-10-02] MEDS: Finasteride 5 MG TABLET PO SCH (08:10)
[2021-10-02] MEDS: Insulin DETEMIR 100 UNIT/ML X5UNITS SUBQ SCH (08:22)
[2021-10-02] MEDS: Fluconazole 40 MG/ML MLS GTUBE SCH (08:22)
[2021-10-02] MEDS: Ketoconazole Shampoo 120 ML BOTTLE TP SCH (08:23)
[2021-10-02] MEDS ORDERED: Iopamidol - 370 500 ML MLS PO ONE (11:38)
[2021-10-02 12:47] LABS: Albumin 2.8 g/dL (3.5-5.7); Albumin/Globulin Ratio 0.7 (1.1-2.2); Bilirubin,Indirect 0.2 mg/dL (0.0-1.0); Bilirubin,Total 0.2 mg/dL (0.3-1.0); Globulin 3.9 g/dL (2.4-3.5); Total Protein 6.7 g/dL (6.4-8.9)
[2021-10-03] MEDS: Insulin LISPRO 300 UNITS/3 ML VIAL SUBQ SCH ×4 (00:02→18:10)
[2021-10-03] MEDS: Acetylcysteine 10% 2 ML INHSOL IH SCH ×4 (04:08→22:33)
[2021-10-03] MEDS: Ipratropium/Albuterol Neb 3 ML IH SCH ×4 (04:08→22:33)
[2021-10-03] MEDS: Chlorhexidine Rinse 15 ML MOUTHWASH MM SCH ×3 (06:03→20:58)
[2021-10-03] MEDS: Lactobacillus 1 EACH CAP.SPRINK GTUBE SCH (10:43)
[2021-10-03] MEDS: Finasteride 5 MG TABLET PO SCH (10:43)
[2021-10-03] MEDS: Ferrous Sulfate Oral Soln 300 MG/5 ML UDC GTUBE SCH (10:43)
[2021-10-03] MEDS: Apixaban 5 MG TABLET GTUBE SCH ×2 (10:43→20:58)
[2021-10-03] MEDS: MetroNIDAZOLE 500 MG/100 ML 500 MG/100 ML BAG IVPB SCH ×2 (10:43→17:34)
[2021-10-03] MEDS: levETIRAcetam 500 MG/5 ML UDC GTUBE SCH ×2 (10:44→20:58)
[2021-10-03] MEDS: Insulin DETEMIR 100 UNIT/ML X5UNITS SUBQ SCH (10:44)
[2021-10-03] MEDS: Fluconazole 40 MG/ML MLS GTUBE SCH (10:53)
[2021-10-04] MEDS: MetroNIDAZOLE 500 MG/100 ML 500 MG/100 ML BAG IVPB SCH ×3 (00:13→20:40)
[2021-10-04] MEDS: Insulin LISPRO 300 UNITS/3 ML VIAL SUBQ SCH ×4 (02:53→16:58)
[2021-10-04 03:06] LABS: Basophils % 0.4 %; Eosinophils # 0.2 K/mcL (0.0-0.6); Eosinophils % 2.1 %; Hematocrit 31.3 % (37.5-50.1); Hemoglobin 9.4 g/dL (12.9-16.9); Immature Granulocytes % 0.7 % (0-4); Lymphocytes # 0.8 K/mcL (0.6-4.6); Lymphocytes % 7.5 %; Mean Corpuscular Hemoglobin 26.9 pg (28.0-33.3); Mean Corpuscular Volume 89.4 fL (83.0-100.0); Mean Platelet Volume 10.3 fL (9.4-12.4); Monocytes # 0.7 K/mcL (0.0-1.3); Monocytes % 6.4 %; Neutrophils # 8.5 K/mcL (1.6-8.9); Platelet Count 505 K/mcL (140-400); Red Cell Distribution Width 16.4 % (11.5-14.5); Segmented Neutrophils % 82.9 %; White Blood Count 10.3 K/mcL (4.3-11.1)
[2021-10-04 03:21] LABS: BUN/Creatinine Ratio 36 (6-26); Blood Urea Nitrogen 20 mg/dL (8-23); Calcium 8.3 mg/dL (8.6-10.3); Carbon Dioxide 31 mEq/L (23-29); Chloride 100 mEq/L (98-107); Glucose 143 mg/dL (70-105); Osmolality,Calculated 291 (280-300); Potassium 4.7 mEq/L (3.5-5.1); Sodium 138 mEq/L (136-145); eGFR For African Americans > 60 (> 60); eGFR For Non-African Americans > 60 (> 60)
[2021-10-04] MEDS: Ipratropium/Albuterol Neb 3 ML IH SCH ×4 (03:40→22:31)
[2021-10-04] MEDS: Acetylcysteine 10% 2 ML INHSOL IH SCH ×4 (03:40→22:31)
[2021-10-04] MEDS ORDERED: *HR* Metoprolol 5 MG/5 ML VIAL IVP ONE (05:07)
[2021-10-04] MEDS: Ferrous Sulfate Oral Soln 300 MG/5 ML UDC GTUBE SCH (10:45)
[2021-10-04] MEDS: levETIRAcetam 500 MG/5 ML UDC GTUBE SCH ×2 (10:46→20:42)
[2021-10-04] MEDS: Lactobacillus 1 EACH CAP.SPRINK GTUBE SCH (10:46)
[2021-10-04] MEDS: Finasteride 5 MG TABLET PO SCH (10:46)
[2021-10-04] MEDS: Apixaban 5 MG TABLET GTUBE SCH ×2 (10:46→20:41)
[2021-10-04] MEDS: Insulin DETEMIR 100 UNIT/ML X5UNITS SUBQ SCH (10:47)
[2021-10-04] MEDS: Fluconazole 40 MG/ML MLS GTUBE SCH (10:47)
[2021-10-04] MEDS: Chlorhexidine Rinse 15 ML MOUTHWASH MM SCH ×2 (10:48→20:42)
[2021-10-04] MEDS ORDERED: Acetaminophen IV 500 MG/50 ML BAG IVPB ONE (12:24)
[2021-10-04 12:31] LABS: Bacteria,Urine Few per hpf (None-Few); Bilirubin,Urine Negative (Negative); Blood,Urine Small (Negative); Clarity,Urine Clear (Clear); Color,Urine Yellow (Yellow); Glucose,Urine (UA) Normal (Normal); Hyaline Casts,Urine Few per lpf (None Seen); Ketones,Urine Trace mg/dL (Negative); Leukocyte Esterase,Urine Small (Negative); Mucus,Urine Few per lpf (None-Few); Nitrite,Urine Negative (Negative); Protein,Urine 100 mg/dL (Neg-Trace); Specific Gravity,Urine 1.024 (1.010-1.025); Urobilinogen,Urine Normal (Normal)
[2021-10-04] MEDS ORDERED: MetroNIDAZOLE 500 MG/100 ML 500 MG/100 ML BAG IVPB SCH (16:00)
[2021-10-04] MEDS: 0.9 % Sodium Chloride 1,000 ML IVC SCH (16:36)
[2021-10-04] MEDS: *HR* Dextrose 50 % in Water (Syg) 50 ML SYRINGE IVP PRN ×2 (20:07→22:58)
[2021-10-05] MEDS: Insulin LISPRO 300 UNITS/3 ML VIAL SUBQ SCH ×4 (00:40→17:44)
[2021-10-05 03:37] LABS: Basophils % 0.5 %; Eosinophils % 0.3 %; Hematocrit 25.6 % (37.5-50.1); Hemoglobin 7.9 g/dL (12.9-16.9); Immature Granulocytes % 0.7 % (0-4); Lymphocytes # 0.6 K/mcL (0.6-4.6); Lymphocytes % 9.4 %; Mean Corpuscular HGB Conc 30.9 g/dL (31.6-35.5); Mean Corpuscular Volume 87.4 fL (83.0-100.0); Mean Platelet Volume 10.2 fL (9.4-12.4); Monocytes # 0.7 K/mcL (0.0-1.3); Monocytes % 11.9 %; Neutrophils # 4.5 K/mcL (1.6-8.9); Platelet Count 422 K/mcL (140-400); Red Blood Count 2.93 M/mcL (4.19-5.50); Red Cell Distribution Width 16.5 % (11.5-14.5); Segmented Neutrophils % 77.2 %; White Blood Count 5.9 K/mcL (4.3-11.1)
[2021-10-05 03:54] LABS: BUN/Creatinine Ratio 30 (6-26); Blood Urea Nitrogen 17 mg/dL (8-23); Calcium 7.5 mg/dL (8.6-10.3); Carbon Dioxide 29 mEq/L (23-29); Chloride 102 mEq/L (98-107); Glucose 102 mg/dL (70-105); Osmolality,Calculated 282 (280-300); Potassium 3.5 mEq/L (3.5-5.1); Sodium 135 mEq/L (136-145); eGFR For African Americans > 60 (> 60); eGFR For Non-African Americans > 60 (> 60)
[2021-10-05] MEDS: Ipratropium/Albuterol Neb 3 ML IH SCH ×4 (03:56→22:21)
[2021-10-05] MEDS: Acetylcysteine 10% 2 ML INHSOL IH SCH ×4 (03:56→22:21)
[2021-10-05] MEDS: MetroNIDAZOLE 500 MG/100 ML 500 MG/100 ML BAG IVPB SCH ×3 (04:02→22:07)
[2021-10-05] MEDS: 0.9 % Sodium Chloride 1,000 ML IVC SCH (04:40)
[2021-10-05] MEDS ORDERED: *HR* Propofol 200 MG/20 ML VIAL IVP ONE (08:57)
[2021-10-05] MEDS ORDERED: Ondansetron 4 MG/2 ML VIAL ONE (08:57)
[2021-10-05] MEDS ORDERED: Lidocaine -MPF 2% 5 ML VIAL ONE (08:57)
[2021-10-05] MEDS: Chlorhexidine Rinse 15 ML MOUTHWASH MM SCH ×2 (11:03→22:07)
[2021-10-05] MEDS: Fluconazole 40 MG/ML MLS GTUBE SCH (11:03)
[2021-10-05] MEDS: Finasteride 5 MG TABLET PO SCH (11:03)
[2021-10-05] MEDS: levETIRAcetam 500 MG/5 ML UDC GTUBE SCH ×2 (11:03→22:07)
[2021-10-05] MEDS: Apixaban 5 MG TABLET GTUBE SCH ×2 (11:03→22:07)
[2021-10-05] MEDS: Lactobacillus 1 EACH CAP.SPRINK GTUBE SCH (11:03)
[2021-10-05] MEDS: Insulin DETEMIR 100 UNIT/ML X5UNITS SUBQ SCH (11:04)
[2021-10-06] MEDS: Insulin LISPRO 300 UNITS/3 ML VIAL SUBQ SCH ×4 (01:07→18:03)
[2021-10-06 01:28] LABS: Basophils % 0.2 %; Hematocrit 30.4 % (37.5-50.1); Immature Granulocytes % 0.5 % (0-4); Lymphocytes # 0.5 K/mcL (0.6-4.6); Lymphocytes % 11.3 %; Mean Corpuscular HGB Conc 29.6 g/dL (31.6-35.5); Mean Corpuscular Hemoglobin 26.6 pg (28.0-33.3); Mean Corpuscular Volume 89.9 fL (83.0-100.0); Mean Platelet Volume 9.8 fL (9.4-12.4); Monocytes # 0.5 K/mcL (0.0-1.3); Monocytes % 10.6 %; Neutrophils # 3.4 K/mcL (1.6-8.9); Platelet Count 384 K/mcL (140-400); Red Blood Count 3.38 M/mcL (4.19-5.50); Red Cell Distribution Width 16.3 % (11.5-14.5); Segmented Neutrophils % 77.4 %; White Blood Count 4.4 K/mcL (4.3-11.1)
[2021-10-06 01:43] LABS: BUN/Creatinine Ratio 31 (6-26); Blood Urea Nitrogen 19 mg/dL (8-23); Calcium 7.8 mg/dL (8.6-10.3); Carbon Dioxide 26 mEq/L (23-29); Chloride 103 mEq/L (98-107); Glucose 276 mg/dL (70-105); Osmolality,Calculated 298 (280-300); Sodium 138 mEq/L (136-145); Vancomycin,Trough 18 mcg/mL (5-10); eGFR For African Americans > 60 (> 60); eGFR For Non-African Americans > 60 (> 60)
[2021-10-06] MEDS: MetroNIDAZOLE 500 MG/100 ML 500 MG/100 ML BAG IVPB SCH ×3 (02:58→20:10)
[2021-10-06] MEDS: Ipratropium/Albuterol Neb 3 ML IH SCH ×4 (03:59→22:30)
[2021-10-06] MEDS: Acetylcysteine 10% 2 ML INHSOL IH SCH ×4 (03:59→22:30)
[2021-10-06] MEDS: Lactobacillus 1 EACH CAP.SPRINK GTUBE SCH (09:06)
[2021-10-06] MEDS: levETIRAcetam 500 MG/5 ML UDC GTUBE SCH ×2 (09:06→20:11)
[2021-10-06] MEDS: Chlorhexidine Rinse 15 ML MOUTHWASH MM SCH ×2 (09:06→19:32)
[2021-10-06] MEDS: Apixaban 5 MG TABLET GTUBE SCH ×2 (09:06→20:12)
[2021-10-06] MEDS: Finasteride 5 MG TABLET PO SCH (09:06)
[2021-10-06] MEDS: Fluconazole 40 MG/ML MLS GTUBE SCH (09:07)
[2021-10-06] MEDS: Insulin DETEMIR 100 UNIT/ML X5UNITS SUBQ SCH (09:07)
[2021-10-06] MEDS: Ketoconazole Shampoo 120 ML BOTTLE TP SCH (14:18)
[2021-10-07] MEDS: Insulin LISPRO 300 UNITS/3 ML VIAL SUBQ SCH ×4 (02:41→18:04)
[2021-10-07] MEDS: MetroNIDAZOLE 500 MG/100 ML 500 MG/100 ML BAG IVPB SCH ×3 (03:13→18:02)
[2021-10-07] MEDS: Acetylcysteine 10% 2 ML INHSOL IH SCH ×4 (03:13→22:55)
[2021-10-07] MEDS: Ipratropium/Albuterol Neb 3 ML IH SCH ×4 (03:13→22:56)
[2021-10-07 03:48] LABS: Basophils % 0.8 %; Eosinophils % 0.3 %; Hematocrit 28.9 % (37.5-50.1); Hemoglobin 8.7 g/dL (12.9-16.9); Immature Granulocytes % 0.3 % (0-4); Lymphocytes % 27.5 %; Mean Corpuscular HGB Conc 30.1 g/dL (31.6-35.5); Mean Corpuscular Hemoglobin 26.2 pg (28.0-33.3); Mean Platelet Volume 10.1 fL (9.4-12.4); Monocytes # 0.5 K/mcL (0.0-1.3); Monocytes % 12.3 %; Neutrophils # 2.2 K/mcL (1.6-8.9); Platelet Count 437 K/mcL (140-400); Red Blood Count 3.32 M/mcL (4.19-5.50); Segmented Neutrophils % 58.8 %; White Blood Count 3.7 K/mcL (4.3-11.1)
[2021-10-07 04:03] LABS: BUN/Creatinine Ratio 42 (6-26); Blood Urea Nitrogen 20 mg/dL (8-23); Calcium 7.8 mg/dL (8.6-10.3); Carbon Dioxide 27 mEq/L (23-29); Chloride 105 mEq/L (98-107); Glucose 179 mg/dL (70-105); Osmolality,Calculated 297 (280-300); Sodium 140 mEq/L (136-145); eGFR For African Americans > 60 (> 60); eGFR For Non-African Americans > 60 (> 60)
[2021-10-07] MEDS: Apixaban 5 MG TABLET GTUBE SCH ×2 (10:05→21:22)
[2021-10-07] MEDS: Chlorhexidine Rinse 15 ML MOUTHWASH MM SCH ×2 (10:06→21:22)
[2021-10-07] MEDS: Lactobacillus 1 EACH CAP.SPRINK GTUBE SCH (10:06)
[2021-10-07] MEDS: Fluconazole 40 MG/ML MLS GTUBE SCH (10:06)
[2021-10-07] MEDS: levETIRAcetam 500 MG/5 ML UDC GTUBE SCH ×2 (10:06→21:22)
[2021-10-07] MEDS: Finasteride 5 MG TABLET PO SCH (10:06)
[2021-10-07] MEDS: Insulin DETEMIR 100 UNIT/ML X5UNITS SUBQ SCH (10:14)
[2021-10-08] MEDS: Insulin LISPRO 300 UNITS/3 ML VIAL SUBQ SCH ×4 (00:36→17:58)
[2021-10-08] MEDS: MetroNIDAZOLE 500 MG/100 ML 500 MG/100 ML BAG IVPB SCH ×3 (02:58→17:57)
[2021-10-08] MEDS: Acetylcysteine 10% 2 ML INHSOL IH SCH (04:34)
[2021-10-08] MEDS: Ipratropium/Albuterol Neb 3 ML IH SCH (04:34)
[2021-10-08 08:01] LABS: Adenovirus Not Detected (Not Detect); Bordetella Pertussis Not Detected (Not Detect); Chlamydophila pneumoniae Not Detected (Not Detect); Coronavirus 229E Not Detected (Not Detect); Coronavirus HKU1 Not Detected (Not Detect); Coronavirus NL63 Not Detected (Not Detect); Coronavirus OC43 Not Detected (Not Detect); Human Metapneumovirus Not Detected (Not Detect); Human Rhinovirus/Enterovirus Not Detected (Not Detect); Influenza A Subtype 2009 H1 Not Detected (Not Detect); Influenza B Not Detected (Not Detect); Mycoplasma pneumoniae Not Detected (Not Detect); Parainfluenza Virus 1 Not Detected (Not Detect); Parainfluenza Virus 2 Not Detected (Not Detect); Parainfluenza Virus 3 Not Detected (Not Detect); Parainfluenza Virus 4 Not Detected (Not Detect); Respiratory Syncytial Virus Not Detected (Not Detect); SARS-CoV-2 DETECTED (Not Detect)
[2021-10-08 08:11] LABS: Influenza A PCR Body Fluid NOT DETECTED; Influenza B PCR Body Fluid NOT DETECTED; RVP Body Fluid Source BAL
[2021-10-08 08:16] LABS: Influenza A PCR Body Fluid NOT DETECTED; Influenza B PCR Body Fluid NOT DETECTED; RVP Body Fluid Source BAL
[2021-10-08] MEDS ORDERED: Ipratropium/Albuterol Neb 3 ML IH PRN (09:37)
[2021-10-08] MEDS: Apixaban 5 MG TABLET GTUBE SCH ×2 (10:29→21:03)
[2021-10-08] MEDS: levETIRAcetam 500 MG/5 ML UDC GTUBE SCH ×2 (10:29→21:02)
[2021-10-08] MEDS: Finasteride 5 MG TABLET PO SCH (10:30)
[2021-10-08] MEDS: Lactobacillus 1 EACH CAP.SPRINK GTUBE SCH (10:30)
[2021-10-08] MEDS: Chlorhexidine Rinse 15 ML MOUTHWASH MM SCH ×2 (10:41→21:02)
[2021-10-08] MEDS: Insulin DETEMIR 100 UNIT/ML X5UNITS SUBQ SCH (11:02)
[2021-10-08] MEDS: Fluconazole 40 MG/ML MLS GTUBE SCH (11:02)
[2021-10-08 12:15] LABS: Basophils % 0.5 %; Eosinophils % 0.3 %; Hematocrit 30.5 % (37.5-50.1); Hemoglobin 9.5 g/dL (12.9-16.9); Immature Granulocytes % 0.5 % (0-4); Lymphocytes # 0.9 K/mcL (0.6-4.6); Lymphocytes % 23.7 %; Mean Corpuscular HGB Conc 31.1 g/dL (31.6-35.5); Mean Corpuscular Hemoglobin 26.5 pg (28.0-33.3); Mean Corpuscular Volume 85.2 fL (83.0-100.0); Monocytes # 0.5 K/mcL (0.0-1.3); Monocytes % 12.5 %; Neutrophils # 2.3 K/mcL (1.6-8.9); Platelet Count 432 K/mcL (140-400); Red Blood Count 3.58 M/mcL (4.19-5.50); Red Cell Distribution Width 16.3 % (11.5-14.5); Segmented Neutrophils % 62.5 %; White Blood Count 3.8 K/mcL (4.3-11.1)
[2021-10-08 13:29] LABS: BUN/Creatinine Ratio 34 (6-26); Blood Urea Nitrogen 15 mg/dL (8-23); Calcium 7.8 mg/dL (8.6-10.3); Carbon Dioxide 26 mEq/L (23-29); Chloride 103 mEq/L (98-107); Glucose 192 mg/dL (70-105); Osmolality,Calculated 294 (280-300); Potassium 3.9 mEq/L (3.5-5.1); Sodium 139 mEq/L (136-145); eGFR For African Americans > 60 (> 60); eGFR For Non-African Americans > 60 (> 60)
[2021-10-08] MEDS: Dexamethasone Sodium Phos/PF 10 MG/ML VIAL IVP SCH (15:09)
[2021-10-08 16:25] LABS: HSV Source BAL
[2021-10-08 19:16] LABS: Albumin 2.4 g/dL (3.5-5.7); Albumin/Globulin Ratio 0.7 (1.1-2.2); Bilirubin,Indirect 0.2 mg/dL (0.0-1.0); Bilirubin,Total 0.2 mg/dL (0.3-1.0); Globulin 3.3 g/dL (2.4-3.5); Total Protein 5.7 g/dL (6.4-8.9)
[2021-10-09] MEDS: Insulin LISPRO 300 UNITS/3 ML VIAL SUBQ SCH ×4 (00:50→17:11)
[2021-10-09] MEDS: MetroNIDAZOLE 500 MG/100 ML 500 MG/100 ML BAG IVPB SCH ×2 (03:28→09:44)
[2021-10-09 06:23] LABS: Basophils % 0.3 %; Hemoglobin 8.7 g/dL (12.9-16.9); Immature Granulocytes % 0.3 % (0-4); Lymphocytes # 0.4 K/mcL (0.6-4.6); Lymphocytes % 13.9 %; Mean Corpuscular HGB Conc 31.1 g/dL (31.6-35.5); Mean Corpuscular Hemoglobin 26.7 pg (28.0-33.3); Mean Corpuscular Volume 85.9 fL (83.0-100.0); Mean Platelet Volume 10.4 fL (9.4-12.4); Monocytes # 0.3 K/mcL (0.0-1.3); Monocytes % 9.4 %; Neutrophils # 2.4 K/mcL (1.6-8.9); Platelet Count 375 K/mcL (140-400); Red Blood Count 3.26 M/mcL (4.19-5.50); Red Cell Distribution Width 16.2 % (11.5-14.5); Segmented Neutrophils % 76.1 %; White Blood Count 3.1 K/mcL (4.3-11.1)
[2021-10-09 08:28] LABS: Alanine Aminotransferase 67 Units/L (7-52); Albumin 2.7 g/dL (3.5-5.7); Albumin/Globulin Ratio 0.8 (1.1-2.2); Alkaline Phosphatase 63 Units/L (34-104); Aspartate Amino Transferase 100 Units/L (13-39); BUN/Creatinine Ratio 44 (6-26); Bilirubin,Total 0.2 mg/dL (0.3-1.0); Blood Urea Nitrogen 21 mg/dL (8-23); Calcium 7.8 mg/dL (8.6-10.3); Carbon Dioxide 28 mEq/L (23-29); Chloride 104 mEq/L (98-107); Globulin 3.4 g/dL (2.4-3.5); Glucose 285 mg/dL (70-105); Osmolality,Calculated 301 (280-300); Potassium 4.2 mEq/L (3.5-5.1); Sodium 139 mEq/L (136-145); Total Protein 6.1 g/dL (6.4-8.9); eGFR For African Americans > 60 (> 60); eGFR For Non-African Americans > 60 (> 60)
[2021-10-09 09:29] LABS: C-Reactive Protein 11 mg/L (Less than 10)
[2021-10-09] MEDS: Chlorhexidine Rinse 15 ML MOUTHWASH MM SCH ×2 (09:45→22:03)
[2021-10-09] MEDS: levETIRAcetam 500 MG/5 ML UDC GTUBE SCH ×2 (09:45→22:02)
[2021-10-09] MEDS: Ferrous Sulfate Oral Soln 300 MG/5 ML UDC GTUBE SCH (09:45)
[2021-10-09] MEDS: Lactobacillus 1 EACH CAP.SPRINK GTUBE SCH (09:48)
[2021-10-09] MEDS: Insulin DETEMIR 100 UNIT/ML X5UNITS SUBQ SCH (09:49)
[2021-10-09] MEDS: Finasteride 5 MG TABLET PO SCH (09:49)
[2021-10-09] MEDS: Apixaban 5 MG TABLET GTUBE SCH ×2 (09:49→22:03)
[2021-10-09] MEDS: Fluconazole 40 MG/ML MLS GTUBE SCH (09:50)
[2021-10-09] MEDS: Ketoconazole Shampoo 120 ML BOTTLE TP SCH (11:18)
[2021-10-09 12:39] LABS: RSV PCR Body Fluid NOT DETECTED
[2021-10-09 12:40] LABS: RSV PCR Body Fluid NOT DETECTED
[2021-10-09] MEDS: Dexamethasone Sodium Phos/PF 10 MG/ML VIAL IVP SCH (15:13)
[2021-10-10] MEDS: MetroNIDAZOLE 500 MG/100 ML 500 MG/100 ML BAG IVPB SCH (00:04)
[2021-10-10] MEDS: Insulin LISPRO 300 UNITS/3 ML VIAL SUBQ SCH ×4 (00:11→18:15)
[2021-10-10 04:57] LABS: Basophils % 0.2 %; Hematocrit 30.3 % (37.5-50.1); Hemoglobin 9.2 g/dL (12.9-16.9); Immature Granulocytes % 0.6 % (0-4); Lymphocytes # 0.8 K/mcL (0.6-4.6); Lymphocytes % 12.5 %; Mean Corpuscular HGB Conc 30.4 g/dL (31.6-35.5); Mean Corpuscular Hemoglobin 26.3 pg (28.0-33.3); Mean Corpuscular Volume 86.6 fL (83.0-100.0); Mean Platelet Volume 10.4 fL (9.4-12.4); Monocytes # 0.6 K/mcL (0.0-1.3); Monocytes % 9.7 %; Neutrophils # 4.8 K/mcL (1.6-8.9); Platelet Count 373 K/mcL (140-400); Red Cell Distribution Width 16.5 % (11.5-14.5)
[2021-10-10 04:58] LABS: White Blood Count 6.2 K/mcL (4.3-11.1)
[2021-10-10] MEDS ORDERED: MetroNIDAZOLE 500 MG/100 ML 500 MG/100 ML BAG IVPB SCH (08:00)
[2021-10-10] MEDS: Insulin DETEMIR 100 UNIT/ML X5UNITS SUBQ SCH (10:32)
[2021-10-10] MEDS: Chlorhexidine Rinse 15 ML MOUTHWASH MM SCH ×2 (10:33→19:51)
[2021-10-10] MEDS: levETIRAcetam 500 MG/5 ML UDC GTUBE SCH ×2 (10:33→19:51)
[2021-10-10] MEDS: Fluconazole 40 MG/ML MLS GTUBE SCH (10:36)
[2021-10-10] MEDS: Finasteride 5 MG TABLET PO SCH (10:37)
[2021-10-10] MEDS: Lactobacillus 1 EACH CAP.SPRINK GTUBE SCH (10:37)
[2021-10-10] MEDS: Apixaban 5 MG TABLET GTUBE SCH ×2 (10:37→19:52)
[2021-10-10] MEDS: Ferrous Sulfate Oral Soln 300 MG/5 ML UDC GTUBE SCH (10:53)
[2021-10-10 14:09] LABS: Albumin 2.6 g/dL (3.5-5.7); Albumin/Globulin Ratio 0.7 (1.1-2.2); Alkaline Phosphatase 63 Units/L (34-104); Aspartate Amino Transferase 88 Units/L (13-39); BUN/Creatinine Ratio 51 (6-26); Bilirubin,Total 0.2 mg/dL (0.3-1.0); Blood Urea Nitrogen 22 mg/dL (8-23); C-Reactive Protein 6 mg/L (Less than 10); Carbon Dioxide 29 mEq/L (23-29); Chloride 102 mEq/L (98-107); Globulin 3.7 g/dL (2.4-3.5); Glucose 232 mg/dL (70-105); Osmolality,Calculated 299 (280-300); Potassium 3.9 mEq/L (3.5-5.1); Sodium 139 mEq/L (136-145); Total Protein 6.3 g/dL (6.4-8.9); eGFR For African Americans > 60 (> 60); eGFR For Non-African Americans > 60 (> 60)
[2021-10-10] MEDS: Dexamethasone Sodium Phos/PF 10 MG/ML VIAL IVP SCH (14:56)
[2021-10-10 14:58] LABS: Alanine Aminotransferase 75 Units/L (7-52)
[2021-10-10] MEDS ORDERED: Remdesivir 200 MG in 0.9 % Sodium Chloride 100 ML IVPB ONE (17:00)
[2021-10-11] MEDS: Insulin LISPRO 300 UNITS/3 ML VIAL SUBQ SCH ×4 (00:54→17:57)
[2021-10-11 02:10] LABS: Hematocrit 29.6 % (37.5-50.1); Hemoglobin 9.1 g/dL (12.9-16.9); Immature Granulocytes % 0.5 % (0-4); Lymphocytes # 0.6 K/mcL (0.6-4.6); Lymphocytes % 9.3 %; Mean Corpuscular HGB Conc 30.7 g/dL (31.6-35.5); Mean Corpuscular Hemoglobin 26.5 pg (28.0-33.3); Mean Platelet Volume 10.7 fL (9.4-12.4); Monocytes # 0.4 K/mcL (0.0-1.3); Monocytes % 6.7 %; Neutrophils # 5.2 K/mcL (1.6-8.9); Platelet Count 404 K/mcL (140-400); Red Blood Count 3.44 M/mcL (4.19-5.50); Red Cell Distribution Width 16.6 % (11.5-14.5); Segmented Neutrophils % 83.5 %; White Blood Count 6.3 K/mcL (4.3-11.1)
[2021-10-11 02:21] LABS: Alanine Aminotransferase 121 Units/L (7-52); Albumin 2.6 g/dL (3.5-5.7); Albumin/Globulin Ratio 0.7 (1.1-2.2); Alkaline Phosphatase 75 Units/L (34-104); Aspartate Amino Transferase 146 Units/L (13-39); BUN/Creatinine Ratio 56 (6-26); Bilirubin,Indirect 0.2 mg/dL (0.0-1.0); Bilirubin,Total 0.2 mg/dL (0.3-1.0); Blood Urea Nitrogen 24 mg/dL (8-23); C-Reactive Protein 5 mg/L (Less than 10); Calcium 8.1 mg/dL (8.6-10.3); Carbon Dioxide 29 mEq/L (23-29); Chloride 101 mEq/L (98-107); Globulin 3.8 g/dL (2.4-3.5); Glucose 262 mg/dL (70-105); Osmolality,Calculated 299 (280-300); Potassium 4.1 mEq/L (3.5-5.1); Sodium 138 mEq/L (136-145); Total Protein 6.4 g/dL (6.4-8.9); eGFR For African Americans > 60 (> 60); eGFR For Non-African Americans > 60 (> 60)
[2021-10-11] MEDS: Apixaban 5 MG TABLET GTUBE SCH ×2 (07:59→20:59)
[2021-10-11] MEDS: Lactobacillus 1 EACH CAP.SPRINK GTUBE SCH (08:00)
[2021-10-11] MEDS: Finasteride 5 MG TABLET PO SCH (08:00)
[2021-10-11] MEDS: levETIRAcetam 500 MG/5 ML UDC GTUBE SCH ×2 (08:00→20:57)
[2021-10-11] MEDS: Ferrous Sulfate Oral Soln 300 MG/5 ML UDC GTUBE SCH (08:00)
[2021-10-11] MEDS: Chlorhexidine Rinse 15 ML MOUTHWASH MM SCH ×2 (08:00→20:57)
[2021-10-11] MEDS: Insulin DETEMIR 100 UNIT/ML X5UNITS SUBQ SCH (08:04)
[2021-10-11] MEDS: Fluconazole 40 MG/ML MLS GTUBE SCH (08:04)
[2021-10-11] MEDS: Dexamethasone Sodium Phos/PF 10 MG/ML VIAL IVP SCH (14:34)
[2021-10-11] MEDS: Remdesivir 100 MG in 0.9 % Sodium Chloride 100 ML IVPB SCH (17:57)
[2021-10-12] MEDS: Insulin LISPRO 300 UNITS/3 ML VIAL SUBQ SCH ×4 (00:17→17:31)
[2021-10-12 07:46] LABS: Basophils % 0.1 %; Hematocrit 30.6 % (37.5-50.1); Hemoglobin 9.5 g/dL (12.9-16.9); Immature Granulocytes % 0.4 % (0-4); Lymphocytes # 1.1 K/mcL (0.6-4.6); Lymphocytes % 14.6 %; Mean Corpuscular Hemoglobin 26.5 pg (28.0-33.3); Mean Corpuscular Volume 85.2 fL (83.0-100.0); Mean Platelet Volume 10.8 fL (9.4-12.4); Monocytes # 0.8 K/mcL (0.0-1.3); Monocytes % 10.6 %; Neutrophils # 5.4 K/mcL (1.6-8.9); Platelet Count 373 K/mcL (140-400); Red Blood Count 3.59 M/mcL (4.19-5.50); Red Cell Distribution Width 16.7 % (11.5-14.5); Segmented Neutrophils % 74.3 %; White Blood Count 7.2 K/mcL (4.3-11.1)
[2021-10-12 07:57] LABS: Alanine Aminotransferase 164 Units/L (7-52); Albumin 2.8 g/dL (3.5-5.7); Albumin/Globulin Ratio 0.8 (1.1-2.2); Alkaline Phosphatase 65 Units/L (34-104); Aspartate Amino Transferase 135 Units/L (13-39); BUN/Creatinine Ratio 50 (6-26); Bilirubin,Total 0.2 mg/dL (0.3-1.0); Blood Urea Nitrogen 25 mg/dL (8-23); Calcium 8.5 mg/dL (8.6-10.3); Carbon Dioxide 33 mEq/L (23-29); Chloride 99 mEq/L (98-107); Globulin 3.6 g/dL (2.4-3.5); Glucose 292 mg/dL (70-105); Osmolality,Calculated 303 (280-300); Potassium 4.1 mEq/L (3.5-5.1); Sodium 139 mEq/L (136-145); Total Protein 6.4 g/dL (6.4-8.9); eGFR For African Americans > 60 (> 60); eGFR For Non-African Americans > 60 (> 60)
[2021-10-12 07:59] LABS: Albumin 2.8 g/dL (3.5-5.7); Albumin/Globulin Ratio 0.8 (1.1-2.2); Bilirubin,Indirect 0.2 mg/dL (0.0-1.0); Bilirubin,Total 0.2 mg/dL (0.3-1.0); Globulin 3.5 g/dL (2.4-3.5); Total Protein 6.3 g/dL (6.4-8.9)
[2021-10-12] MEDS: Insulin DETEMIR 100 UNIT/ML X5UNITS SUBQ SCH (08:21)
[2021-10-12] MEDS: levETIRAcetam 500 MG/5 ML UDC GTUBE SCH ×2 (08:22→21:01)
[2021-10-12] MEDS: Lactobacillus 1 EACH CAP.SPRINK GTUBE SCH (08:22)
[2021-10-12] MEDS: Fluconazole 40 MG/ML MLS GTUBE SCH (08:22)
[2021-10-12] MEDS: Ferrous Sulfate Oral Soln 300 MG/5 ML UDC GTUBE SCH (08:22)
[2021-10-12] MEDS: Apixaban 5 MG TABLET GTUBE SCH ×2 (08:22→21:01)
[2021-10-12] MEDS: Finasteride 5 MG TABLET PO SCH (08:22)
[2021-10-12] MEDS: Chlorhexidine Rinse 15 ML MOUTHWASH MM SCH ×2 (08:22→21:00)
[2021-10-12] MEDS: Remdesivir 100 MG in 0.9 % Sodium Chloride 100 ML IVPB SCH (15:32)
[2021-10-12] MEDS: Dexamethasone Sodium Phos/PF 10 MG/ML VIAL IVP SCH (15:32)
[2021-10-13] MEDS: Insulin LISPRO 300 UNITS/3 ML VIAL SUBQ SCH ×4 (03:00→17:27)
[2021-10-13 03:17] LABS: Basophils % 0.1 %; Hematocrit 32.8 % (37.5-50.1); Hemoglobin 10.3 g/dL (12.9-16.9); Immature Granulocytes % 1.1 % (0-4); Lymphocytes # 0.7 K/mcL (0.6-4.6); Mean Corpuscular HGB Conc 31.4 g/dL (31.6-35.5); Mean Corpuscular Hemoglobin 26.5 pg (28.0-33.3); Mean Corpuscular Volume 84.5 fL (83.0-100.0); Mean Platelet Volume 11.2 fL (9.4-12.4); Monocytes # 0.6 K/mcL (0.0-1.3); Monocytes % 8.4 %; Neutrophils # 5.7 K/mcL (1.6-8.9); Platelet Count 422 K/mcL (140-400); Red Blood Count 3.88 M/mcL (4.19-5.50); Segmented Neutrophils % 80.4 %; White Blood Count 7.1 K/mcL (4.3-11.1)
[2021-10-13 03:41] LABS: Albumin 2.9 g/dL (3.5-5.7); Albumin/Globulin Ratio 0.7 (1.1-2.2); Bilirubin,Direct 0.1 mg/dL (0.0-0.2); Bilirubin,Indirect 0.1 mg/dL (0.0-1.0); Bilirubin,Total 0.2 mg/dL (0.3-1.0); Globulin 3.9 g/dL (2.4-3.5); Total Protein 6.8 g/dL (6.4-8.9)
[2021-10-13 03:42] LABS: Alanine Aminotransferase 175 Units/L (7-52); Albumin 2.9 g/dL (3.5-5.7); Albumin/Globulin Ratio 0.7 (1.1-2.2); Alkaline Phosphatase 82 Units/L (34-104); Aspartate Amino Transferase 114 Units/L (13-39); BUN/Creatinine Ratio 52 (6-26); Bilirubin,Total 0.2 mg/dL (0.3-1.0); Blood Urea Nitrogen 27 mg/dL (8-23); Calcium 8.7 mg/dL (8.6-10.3); Carbon Dioxide 32 mEq/L (23-29); Chloride 98 mEq/L (98-107); Globulin 3.9 g/dL (2.4-3.5); Glucose 306 mg/dL (70-105); Osmolality,Calculated 303 (280-300); Potassium 4.5 mEq/L (3.5-5.1); Sodium 138 mEq/L (136-145); Total Protein 6.8 g/dL (6.4-8.9); eGFR For African Americans > 60 (> 60); eGFR For Non-African Americans > 60 (> 60)
[2021-10-13] MEDS: Chlorhexidine Rinse 15 ML MOUTHWASH MM SCH ×2 (09:25→22:36)
[2021-10-13] MEDS: Ferrous Sulfate Oral Soln 300 MG/5 ML UDC GTUBE SCH (09:26)
[2021-10-13] MEDS: Insulin DETEMIR 100 UNIT/ML X5UNITS SUBQ SCH (09:26)
[2021-10-13] MEDS: levETIRAcetam 500 MG/5 ML UDC GTUBE SCH ×2 (09:26→22:36)
[2021-10-13] MEDS: Lactobacillus 1 EACH CAP.SPRINK GTUBE SCH (09:27)
[2021-10-13] MEDS: Finasteride 5 MG TABLET PO SCH (09:27)
[2021-10-13] MEDS: Ketoconazole Shampoo 120 ML BOTTLE TP SCH (09:27)
[2021-10-13] MEDS: Apixaban 5 MG TABLET GTUBE SCH ×2 (09:27→22:36)
[2021-10-13] MEDS ORDERED: Dexamethasone Sodium Phos/PF 10 MG/ML VIAL IVP SCH (15:00)
[2021-10-13] MEDS: Remdesivir 100 MG in 0.9 % Sodium Chloride 100 ML IVPB SCH (15:47)
[2021-10-14] MEDS: Insulin LISPRO 300 UNITS/3 ML VIAL SUBQ SCH ×4 (01:01→17:06)
[2021-10-14 03:36] LABS: Albumin 2.8 g/dL (3.5-5.7); Albumin/Globulin Ratio 0.8 (1.1-2.2); Bilirubin,Direct 0.1 mg/dL (0.0-0.2); Bilirubin,Indirect 0.1 mg/dL (0.0-1.0); Bilirubin,Total 0.2 mg/dL (0.3-1.0); Globulin 3.7 g/dL (2.4-3.5); Total Protein 6.5 g/dL (6.4-8.9)
[2021-10-14] MEDS: Ferrous Sulfate Oral Soln 300 MG/5 ML UDC GTUBE SCH (07:49)
[2021-10-14] MEDS: levETIRAcetam 500 MG/5 ML UDC GTUBE SCH ×2 (07:49→21:05)
[2021-10-14] MEDS: Lactobacillus 1 EACH CAP.SPRINK GTUBE SCH (07:49)
[2021-10-14] MEDS: Finasteride 5 MG TABLET PO SCH (07:49)
[2021-10-14] MEDS: Chlorhexidine Rinse 15 ML MOUTHWASH MM SCH ×2 (07:49→21:06)
[2021-10-14] MEDS: Insulin DETEMIR 100 UNIT/ML X5UNITS SUBQ SCH (07:50)
[2021-10-14] MEDS: Apixaban 5 MG TABLET GTUBE SCH ×2 (07:50→21:07)
[2021-10-14] MEDS: Remdesivir 100 MG in 0.9 % Sodium Chloride 100 ML IVPB SCH (15:58)
[2021-10-14] MEDS: Melatonin 3 MG TABLET GTUBE PRN (21:06)
[2021-10-14] MEDS: *HR* Dextrose 50 % in Water (Syg) 50 ML SYRINGE IVP PRN (23:49)
[2021-10-15] MEDS: Insulin LISPRO 300 UNITS/3 ML VIAL SUBQ SCH ×4 (00:03→17:00)
[2021-10-15 05:06] LABS: Albumin/Globulin Ratio 0.9 (1.1-2.2); Bilirubin,Direct 0.1 mg/dL (0.0-0.2); Bilirubin,Indirect 0.2 mg/dL (0.0-1.0); Bilirubin,Total 0.3 mg/dL (0.3-1.0); Globulin 3.3 g/dL (2.4-3.5); Total Protein 6.3 g/dL (6.4-8.9)
[2021-10-15] MEDS: Lactobacillus 1 EACH CAP.SPRINK GTUBE SCH (08:47)
[2021-10-15] MEDS: Finasteride 5 MG TABLET PO SCH (08:48)
[2021-10-15] MEDS: Apixaban 5 MG TABLET GTUBE SCH ×2 (08:48→20:01)
[2021-10-15] MEDS: Chlorhexidine Rinse 15 ML MOUTHWASH MM SCH ×3 (08:48→20:12)
[2021-10-15] MEDS: Ferrous Sulfate Oral Soln 300 MG/5 ML UDC GTUBE SCH (08:48)
[2021-10-15] MEDS: levETIRAcetam 500 MG/5 ML UDC GTUBE SCH ×2 (08:56→20:01)
[2021-10-15] MEDS: Insulin DETEMIR 100 UNIT/ML X5UNITS SUBQ SCH (09:54)
[2021-10-16] MEDS: Insulin LISPRO 300 UNITS/3 ML VIAL SUBQ SCH ×5 (00:19→23:59)
[2021-10-16] MEDS: Apixaban 5 MG TABLET GTUBE SCH ×2 (08:15→20:20)
[2021-10-16] MEDS: Finasteride 5 MG TABLET PO SCH (08:15)
[2021-10-16] MEDS: Lactobacillus 1 EACH CAP.SPRINK GTUBE SCH (08:16)
[2021-10-16] MEDS: levETIRAcetam 500 MG/5 ML UDC GTUBE SCH ×2 (08:16→20:21)
[2021-10-16] MEDS: Ferrous Sulfate Oral Soln 300 MG/5 ML UDC GTUBE SCH (08:16)
[2021-10-16] MEDS: Chlorhexidine Rinse 15 ML MOUTHWASH MM SCH ×2 (08:16→20:35)
[2021-10-16] MEDS: Ketoconazole Shampoo 120 ML BOTTLE TP SCH (08:16)
[2021-10-16 10:10] LABS: Basophils % 0.3 %; Eosinophils # 0.2 K/mcL (0.0-0.6); Eosinophils % 2.7 %; Hematocrit 33.7 % (37.5-50.1); Hemoglobin 10.5 g/dL (12.9-16.9); Immature Granulocytes % 2.3 % (0-4); Lymphocytes # 1.5 K/mcL (0.6-4.6); Lymphocytes % 16.1 %; Mean Corpuscular HGB Conc 31.2 g/dL (31.6-35.5); Mean Corpuscular Hemoglobin 26.6 pg (28.0-33.3); Mean Corpuscular Volume 85.5 fL (83.0-100.0); Mean Platelet Volume 10.9 fL (9.4-12.4); Monocytes # 0.9 K/mcL (0.0-1.3); Monocytes % 9.5 %; Neutrophils # 6.3 K/mcL (1.6-8.9); Platelet Count 424 K/mcL (140-400); Red Blood Count 3.94 M/mcL (4.19-5.50); Segmented Neutrophils % 69.1 %; White Blood Count 9.1 K/mcL (4.3-11.1)
[2021-10-16 10:35] LABS: Alanine Aminotransferase 105 Units/L (7-52); Albumin/Globulin Ratio 0.8 (1.1-2.2); Alkaline Phosphatase 88 Units/L (34-104); Aspartate Amino Transferase 44 Units/L (13-39); BUN/Creatinine Ratio 53 (6-26); Bilirubin,Total 0.3 mg/dL (0.3-1.0); Blood Urea Nitrogen 27 mg/dL (8-23); Calcium 8.6 mg/dL (8.6-10.3); Carbon Dioxide 32 mEq/L (23-29); Chloride 97 mEq/L (98-107); Globulin 3.6 g/dL (2.4-3.5); Glucose 221 mg/dL (70-105); Osmolality,Calculated 292 (280-300); Potassium 4.7 mEq/L (3.5-5.1); Sodium 135 mEq/L (136-145); Total Protein 6.6 g/dL (6.4-8.9); eGFR For African Americans > 60 (> 60); eGFR For Non-African Americans > 60 (> 60)
[2021-10-17] MEDS: Insulin LISPRO 300 UNITS/3 ML VIAL SUBQ SCH ×3 (05:09→16:03)
[2021-10-17] MEDS: Apixaban 5 MG TABLET GTUBE SCH ×2 (07:35→21:24)
[2021-10-17] MEDS: Chlorhexidine Rinse 15 ML MOUTHWASH MM SCH ×3 (07:35→21:24)
[2021-10-17] MEDS: Ferrous Sulfate Oral Soln 300 MG/5 ML UDC GTUBE SCH (07:35)
[2021-10-17] MEDS: Lactobacillus 1 EACH CAP.SPRINK GTUBE SCH (07:35)
[2021-10-17] MEDS: Finasteride 5 MG TABLET PO SCH (07:35)
[2021-10-17] MEDS: levETIRAcetam 500 MG/5 ML UDC GTUBE SCH ×2 (07:41→21:24)
[2021-10-17] MEDS: Ipratropium 1 PUFF INHALER IH SCH ×5 (09:42→23:20)
[2021-10-18 00:06] LABS: ABG Base Excess 5 mEq/L (-2 to 3); ABG HCO3 30 mEq/L (21-27); ABG Oxygen Saturation 94 % (95-98); ABG PCO2 42 mmHg (35-45); ABG PH 7.46 pH Units (7.32-7.45); ABG PO2 68 mmHg (85-104); ABG TCO2 31 mEq/L (20-26)
[2021-10-18] MEDS: Insulin LISPRO 300 UNITS/3 ML VIAL SUBQ SCH ×5 (01:23→22:09)
[2021-10-18] MEDS: Ipratropium 1 PUFF INHALER IH SCH ×5 (04:32→19:57)
[2021-10-18] MEDS: Lactobacillus 1 EACH CAP.SPRINK GTUBE SCH (10:36)
[2021-10-18] MEDS: Apixaban 5 MG TABLET GTUBE SCH ×2 (10:37→21:52)
[2021-10-18] MEDS: levETIRAcetam 500 MG/5 ML UDC GTUBE SCH ×2 (10:37→21:52)
[2021-10-18] MEDS: Ferrous Sulfate Oral Soln 300 MG/5 ML UDC GTUBE SCH (10:37)
[2021-10-18] MEDS: Finasteride 5 MG TABLET PO SCH (10:37)
[2021-10-18] MEDS: Chlorhexidine Rinse 15 ML MOUTHWASH MM SCH ×2 (10:37→21:53)
[2021-10-18 13:08] LABS: Basophils % 0.3 %; Eosinophils # 0.3 K/mcL (0.0-0.6); Hematocrit 34.5 % (37.5-50.1); Hemoglobin 10.7 g/dL (12.9-16.9); Immature Granulocytes % 1.2 % (0-4); Lymphocytes # 1.4 K/mcL (0.6-4.6); Lymphocytes % 10.4 %; Mean Corpuscular Hemoglobin 26.7 pg (28.0-33.3); Mean Platelet Volume 10.8 fL (9.4-12.4); Monocytes # 1.4 K/mcL (0.0-1.3); Monocytes % 10.4 %; Neutrophils # 9.9 K/mcL (1.6-8.9); Platelet Count 428 K/mcL (140-400); Red Blood Count 4.01 M/mcL (4.19-5.50); Segmented Neutrophils % 75.7 %; White Blood Count 13.1 K/mcL (4.3-11.1)
[2021-10-18 13:42] LABS: Alanine Aminotransferase 76 Units/L (7-52); Albumin 3.3 g/dL (3.5-5.7); Albumin/Globulin Ratio 0.8 (1.1-2.2); Alkaline Phosphatase 107 Units/L (34-104); Aspartate Amino Transferase 38 Units/L (13-39); BUN/Creatinine Ratio 55 (6-26); Bilirubin,Total 0.5 mg/dL (0.3-1.0); Blood Urea Nitrogen 31 mg/dL (8-23); Calcium 8.9 mg/dL (8.6-10.3); Carbon Dioxide 28 mEq/L (23-29); Chloride 95 mEq/L (98-107); Globulin 3.9 g/dL (2.4-3.5); Glucose 247 mg/dL (70-105); Osmolality,Calculated 287 (280-300); Potassium 5.3 mEq/L (3.5-5.1); Sodium 131 mEq/L (136-145); Total Protein 7.2 g/dL (6.4-8.9); eGFR For African Americans > 60 (> 60); eGFR For Non-African Americans > 60 (> 60)
[2021-10-19] MEDS: Ipratropium 1 PUFF INHALER IH SCH ×2 (00:09→03:57)
[2021-10-19] MEDS: Insulin LISPRO 300 UNITS/3 ML VIAL SUBQ SCH (05:48)
[2021-10-19] MEDS: Ipratropium/Albuterol Neb 3 ML IH SCH ×2 (08:04→10:57)
[2021-10-19] MEDS: Acetylcysteine 10% 2 ML INHSOL IH SCH ×2 (08:04→10:57)
[2021-10-19] MEDS: Apixaban 5 MG TABLET GTUBE SCH (09:00)
[2021-10-19] MEDS: Ferrous Sulfate Oral Soln 300 MG/5 ML UDC GTUBE SCH (09:00)
[2021-10-19] MEDS: Chlorhexidine Rinse 15 ML MOUTHWASH MM SCH (09:00)
[2021-10-19] MEDS: Finasteride 5 MG TABLET PO SCH (09:01)
[2021-10-19] MEDS: Lactobacillus 1 EACH CAP.SPRINK GTUBE SCH (09:01)
[2021-10-19] MEDS: levETIRAcetam 500 MG/5 ML UDC GTUBE SCH (09:02)
[2021-10-19 10:27] VITALS: BP 116/70; TEMP 99.6
[2021-10-19 11:49] VITALS: PULSE 108; O2SAT 100
== END 2021-10-19 12:41 | DRG 720 ==
LOC: 2ANU → SUATTDRO 09:54 → 2ANU 10-08 08:09
PROVIDERS: ADMIT Student in an Organized Health Care Education/Training Program; ATTEND Family Medicine

== ENCOUNTER 2021-10-24 14:14 | Inpatient (IN) ==
[2021-10-24] MEDS ORDERED: Naloxone 0.4 MG/ML INJ IVP PRN (17:25)
[2021-10-24] MEDS ORDERED: Calcium Gluconate 1gm/50mL 1 GM/50 ML BAG IVPB PRN (17:31)
[2021-10-24] MEDS ORDERED: Albuterol 2.5 MG/3 ML NEBULIZER IH ONE (17:46)
[2021-10-24] MEDS ORDERED: SODIUM ZIRCONIUM CYCLOSILICATE 5 GM POWD.PACK PO SCH (18:00)
[2021-10-24] MEDS ORDERED: *HR* FentaNYL (PF) 100 MCG/2 ML VIAL IM ONE (18:10)
[2021-10-24] MEDS ORDERED: diazePAM 10 MG/2 ML SYRINGE IM ONE (18:13)
[2021-10-24] MEDS: Dexmedetomidine HCl 400 MCG/100 ML MLS IVC SCH (18:20)
[2021-10-24] MEDS ORDERED: D5% in Water 1,000 ML IVC PRN (18:56)
[2021-10-24] MEDS ORDERED: *HR* Dextrose 50 % in Water (Syg) 50 ML SYRINGE IVP PRN (18:56)
[2021-10-24] MEDS ORDERED: Dextrose Gel 15 GM/37.5 ML TUBE PO PRN ×2 (18:56)
[2021-10-24] MEDS ORDERED: Insulin LISPRO 300 UNITS/3 ML VIAL SUBQ SCH ×2 (19:00→21:00)
[2021-10-24] MEDS ORDERED: *HR* Midazolam HCl 2 MG/2 ML VIAL IVP ONE (20:20)
[2021-10-24] MEDS ORDERED: *HR* Midazolam HCl 5 MG/5 ML VIAL IVP ONE (20:22)
[2021-10-24] MEDS ORDERED: 0.9 % Sodium Chloride 1,000 ML ONE (20:39)
[2021-10-24] MEDS: Pantoprazole 40 MG VIAL IVP SCH (20:49)
[2021-10-24] MEDS: *HR* Heparin 5,000 UNIT/ML VIAL SQ SCH (21:00)
[2021-10-24] MEDS ORDERED: Phenylephrine 20 MG in 0.9 % Sodium Chloride 250 ML IVC SCH (21:00)
[2021-10-24 21:23] LABS: VBG HCO3 25 mEq/L (21-27); VBG Ionized Calcium 1.11 mmol/L (1.15-1.35); VBG PCO2 48 mmHg (41-51); VBG PH 7.32 pH Units (7.32-7.42); VBG PO2 52 mmHg (25-50)
[2021-10-24 21:28] LABS: Hematocrit 28.5 % (37.5-50.1); Mean Corpuscular HGB Conc 31.6 g/dL (31.6-35.5); Mean Corpuscular Hemoglobin 27.4 pg (28.0-33.3); Mean Corpuscular Volume 86.9 fL (83.0-100.0); Mean Platelet Volume 11.8 fL (9.4-12.4); Platelet Count 239 K/mcL (140-400); Red Blood Count 3.28 M/mcL (4.19-5.50); White Blood Count 19.4 K/mcL (4.3-11.1)
[2021-10-24] MEDS: FentaNYL (PF) 1,000 MCG/100 ML IV.SOLN IVC SCH (21:36)
[2021-10-24 21:42] LABS: Albumin 2.8 g/dL (3.5-5.7); Albumin/Globulin Ratio 0.8 (1.1-2.2); Bilirubin,Direct 0.2 mg/dL (0.0-0.2); Bilirubin,Indirect 0.5 mg/dL (0.0-1.0); Bilirubin,Total 0.7 mg/dL (0.3-1.0); Calcium 8.3 mg/dL (8.6-10.3); Globulin 3.4 g/dL (2.4-3.5); Phosphorous 4.7 mg/dL (2.7-4.5); Potassium 6.3 mEq/L (3.5-5.1); Total Protein 6.2 g/dL (6.4-8.9)
[2021-10-24 22:05] LABS: Lymphocytes # 0.4 K/mcL (0.6-4.6); Monocytes # 0.4 K/mcL (0.0-1.3); Neutrophils # 18.2 K/mcL (1.6-8.9); Platelet Estimate Normal (Normal)
[2021-10-24] MEDS: Phenylephrine 100 MG in 0.9 % Sodium Chloride 250 ML IVC SCH (22:35)
[2021-10-24] MEDS: Piperacillin/Tazobactam 3.375 GM in 0.9 % Sodium Chloride Mini Bag 100 ML IVPB SCH (22:57)
[2021-10-24] MEDS: Hydrocortisone Sodium Succ 100 MG/2 ML VIAL IVP SCH (22:57)
[2021-10-25] MEDS: Dexmedetomidine HCl 400 MCG/100 ML MLS IVC SCH (00:30)
[2021-10-25] MEDS: Norepinephrine 4 MG/254 ML IV.SOLN IVC SCH ×2 (01:21→12:43)
[2021-10-25] MEDS: Phenylephrine 100 MG in 0.9 % Sodium Chloride 250 ML IVC SCH (03:05)
[2021-10-25 03:54] LABS: Hematocrit 31.6 % (37.5-50.1); Hemoglobin 9.7 g/dL (12.9-16.9); Mean Corpuscular HGB Conc 30.7 g/dL (31.6-35.5)
[2021-10-25 03:55] LABS: Mean Corpuscular Hemoglobin 27.2 pg (28.0-33.3); Mean Corpuscular Volume 88.8 fL (83.0-100.0); Mean Platelet Volume 11.6 fL (9.4-12.4); Platelet Count 285 K/mcL (140-400); Red Blood Count 3.56 M/mcL (4.19-5.50); Red Cell Distribution Width 17.7 % (11.5-14.5); White Blood Count 26.1 K/mcL (4.3-11.1)
[2021-10-25] MEDS ORDERED: Artificial Tears SOLN 15 ML BOTTLE BOTH EYES PRN (04:01)
[2021-10-25 04:13] LABS: Albumin 3.1 g/dL (3.5-5.7); Albumin/Globulin Ratio 0.8 (1.1-2.2); Bilirubin,Total 0.5 mg/dL (0.3-1.0); Calcium 8.4 mg/dL (8.6-10.3); Globulin 3.7 g/dL (2.4-3.5); Magnesium 2.3 mg/dL (1.6-2.6); Phosphorous 6.1 mg/dL (2.7-4.5); Potassium 5.7 mEq/L (3.5-5.1); Total Protein 6.8 g/dL (6.4-8.9)
[2021-10-25 04:20] LABS: ABG Base Excess -4 mEq/L (-2 to 3); ABG HCO3 22 mEq/L (21-27); ABG Oxygen Saturation 91 % (95-98); ABG PCO2 43 mmHg (35-45); ABG PH 7.31 pH Units (7.32-7.45); ABG PO2 66 mmHg (85-104); ABG TCO2 23 mEq/L (20-26); Blood Gas VT 450 cc
[2021-10-25 04:28] LABS: Thyroid Stimulating Hormone 0.878 mcIU/mL (0.340-5.600)
[2021-10-25 05:39] LABS: Lymphocytes # 1.6 K/mcL (0.6-4.6); Neutrophils # 21.9 K/mcL (1.6-8.9); Platelet Estimate Normal (Normal)
[2021-10-25] MEDS: Piperacillin/Tazobactam 3.375 GM in 0.9 % Sodium Chloride Mini Bag 100 ML IVPB SCH (06:04)
[2021-10-25] MEDS: Hydrocortisone Sodium Succ 100 MG/2 ML VIAL IVP SCH ×3 (06:08→20:17)
[2021-10-25] MEDS: *HR* Heparin 5,000 UNIT/ML VIAL SQ SCH ×3 (06:09→20:17)
[2021-10-25] MEDS: Chlorhexidine Rinse 15 ML MOUTHWASH MM SCH ×2 (07:49→20:18)
[2021-10-25] MEDS: Pantoprazole 40 MG VIAL IVP SCH (07:49)
[2021-10-25] MEDS: SODIUM ZIRCONIUM CYCLOSILICATE 5 GM POWD.PACK PO SCH (07:49)
[2021-10-25] MEDS: Artificial Tears SOLN 15 ML BOTTLE BOTH EYES SCH ×5 (09:15→23:17)
[2021-10-25] MEDS: Insulin LISPRO 300 UNITS/3 ML VIAL SUBQ SCH ×5 (09:18→23:17)
[2021-10-25] MEDS: 0.9 % Sodium Chloride 1,000 ML IVC SCH ×3 (12:03→23:54)
[2021-10-25] MEDS: Vasopressin 40 UNIT in D5% in Water 100 ML IVC SCH (12:30)
[2021-10-25] MEDS ORDERED: 0.9 % Sodium Chloride 500 ML ONE (12:33)
[2021-10-25] MEDS: FentaNYL (PF) 1,000 MCG/100 ML IV.SOLN IVC SCH (17:19)
[2021-10-25] MEDS: Meropenem 1,000 MG in 0.9 % Sodium Chloride 20 ML IVP SCH ×2 (17:22→23:54)
[2021-10-25 17:50] LABS: Bilirubin,Urine Negative (Negative); Blood,Urine Moderate (Negative); Clarity,Urine Clear (Clear); Color,Urine Light-Yellow (Yellow); Glucose,Urine (UA) 200 mg/dL (Normal); Ketones,Urine Negative (Negative); Leukocyte Esterase,Urine Trace (Negative); Mucus,Urine Few per lpf (None-Few); Nitrite,Urine Negative (Negative); PH,Urine 5.5 pH Units (5.0-8.0); Protein,Urine Trace mg/dL (Neg-Trace); RBC,Urine 50-100 per hpf (0-3); Urobilinogen,Urine Normal (Normal)
[2021-10-25 22:35] LABS: BUN/Creatinine Ratio 70 (6-26); Blood Urea Nitrogen 64 mg/dL (8-23); Carbon Dioxide 23 mEq/L (23-29); Chloride 108 mEq/L (98-107); Glucose 99 mg/dL (70-105); Osmolality,Calculated 306 (280-300); Potassium 4.2 mEq/L (3.5-5.1); Sodium 139 mEq/L (136-145); eGFR For African Americans > 60 (> 60); eGFR For Non-African Americans > 60 (> 60)
[2021-10-26 03:56] LABS: ABG Base Excess -2 mEq/L (-2 to 3); ABG HCO3 23 mEq/L (21-27); ABG Oxygen Saturation 95 % (95-98); ABG PCO2 39 mmHg (35-45); ABG PH 7.39 pH Units (7.32-7.45); ABG PO2 75 mmHg (85-104); ABG TCO2 25 mEq/L (20-26); Blood Gas VT 450 cc
[2021-10-26] MEDS: *HR* Heparin 5,000 UNIT/ML VIAL SQ SCH ×3 (04:12→20:47)
[2021-10-26] MEDS: Artificial Tears SOLN 15 ML BOTTLE BOTH EYES SCH ×6 (04:12→23:56)
[2021-10-26] MEDS: Insulin LISPRO 300 UNITS/3 ML VIAL SUBQ SCH ×5 (04:12→20:47)
[2021-10-26] MEDS: Hydrocortisone Sodium Succ 100 MG/2 ML VIAL IVP SCH ×3 (04:12→20:47)
[2021-10-26 04:54] LABS: Mean Corpuscular HGB Conc 32.2 g/dL (31.6-35.5); Mean Corpuscular Hemoglobin 27.9 pg (28.0-33.3); Mean Corpuscular Volume 86.8 fL (83.0-100.0); Mean Platelet Volume 11.2 fL (9.4-12.4); Platelet Count 178 K/mcL (140-400); Red Blood Count 2.65 M/mcL (4.19-5.50); Red Cell Distribution Width 17.5 % (11.5-14.5); White Blood Count 17.5 K/mcL (4.3-11.1)
[2021-10-26 05:01] LABS: Hemoglobin 7.4 g/dL (12.9-16.9)
[2021-10-26 05:15] LABS: Alanine Aminotransferase 127 Units/L (7-52); Albumin 2.7 g/dL (3.5-5.7); Albumin/Globulin Ratio 0.8 (1.1-2.2); Alkaline Phosphatase 60 Units/L (34-104); Aspartate Amino Transferase 98 Units/L (13-39); BUN/Creatinine Ratio 83 (6-26); Bilirubin,Total 0.3 mg/dL (0.3-1.0); Blood Urea Nitrogen 58 mg/dL (8-23); Carbon Dioxide 24 mEq/L (23-29); Chloride 110 mEq/L (98-107); Globulin 3.3 g/dL (2.4-3.5); Glucose 60 mg/dL (70-105); Magnesium 2.1 mg/dL (1.6-2.6); Osmolality,Calculated 306 (280-300); Phosphorous 2.5 mg/dL (2.7-4.5); Sodium 141 mEq/L (136-145); eGFR For African Americans > 60 (> 60); eGFR For Non-African Americans > 60 (> 60)
[2021-10-26 05:25] LABS: Eosinophils # 0.2 K/mcL (0.0-0.6); Lymphocytes # 1.1 K/mcL (0.6-4.6); Monocytes # 0.5 K/mcL (0.0-1.3); Neutrophils # 15.8 K/mcL (1.6-8.9); Platelet Estimate Normal (Normal)
[2021-10-26] MEDS: Meropenem 1,000 MG in 0.9 % Sodium Chloride 20 ML IVP SCH ×3 (07:32→23:55)
[2021-10-26] MEDS: 0.9 % Sodium Chloride 1,000 ML IVC SCH (07:32)
[2021-10-26] MEDS: Norepinephrine 4 MG/254 ML IV.SOLN IVC SCH (07:33)
[2021-10-26] MEDS: Pantoprazole 40 MG VIAL IVP SCH (07:33)
[2021-10-26] MEDS: FentaNYL (PF) 1,000 MCG/100 ML IV.SOLN IVC SCH (07:34)
[2021-10-26] MEDS: Chlorhexidine Rinse 15 ML MOUTHWASH MM SCH ×2 (07:34→20:47)
[2021-10-26] MEDS ORDERED: Albumin 25% 25gram/100mL 25 GM/100 ML IV.SOLN IVPB ONE (07:51)
[2021-10-26] MEDS: SODIUM ZIRCONIUM CYCLOSILICATE 5 GM POWD.PACK PO SCH (09:15)
[2021-10-26] MEDS: Vasopressin 40 UNIT in D5% in Water 100 ML IVC SCH (11:17)
[2021-10-26 12:39] LABS: VBG Ionized Calcium 1.16 mmol/L (1.15-1.35)
[2021-10-26 17:20] LABS: Basophils % 0.1 %; Hematocrit 22.1 % (37.5-50.1); Immature Granulocytes % 1.5 % (0-4); Lymphocytes # 0.4 K/mcL (0.6-4.6); Lymphocytes % 2.5 %; Mean Corpuscular HGB Conc 31.7 g/dL (31.6-35.5); Mean Corpuscular Hemoglobin 28.2 pg (28.0-33.3); Mean Corpuscular Volume 89.1 fL (83.0-100.0); Mean Platelet Volume 11.4 fL (9.4-12.4); Monocytes # 0.7 K/mcL (0.0-1.3); Monocytes % 4.7 %; Neutrophils # 13.5 K/mcL (1.6-8.9); Platelet Count 158 K/mcL (140-400); Red Blood Count 2.48 M/mcL (4.19-5.50); Red Cell Distribution Width 17.9 % (11.5-14.5); Segmented Neutrophils % 91.2 %; White Blood Count 14.8 K/mcL (4.3-11.1)
[2021-10-26 17:37] LABS: Platelet Estimate Normal (Normal)
[2021-10-26 17:38] LABS: Anisocytosis 1+ (Not Present)
[2021-10-26] MEDS: Dexmedetomidine HCl 400 MCG/100 ML MLS IVC SCH (20:47)
[2021-10-27] MEDS: Insulin LISPRO 300 UNITS/3 ML VIAL SUBQ SCH ×6 (00:02→20:45)
[2021-10-27 00:26] LABS: Hematocrit 22.4 % (37.5-50.1)
[2021-10-27] MEDS: Artificial Tears SOLN 15 ML BOTTLE BOTH EYES SCH ×2 (03:39→07:58)
[2021-10-27 03:42] LABS: ABG Base Excess 0 mEq/L (-2 to 3); ABG HCO3 24 mEq/L (21-27); ABG Oxygen Saturation 96 % (95-98); ABG PCO2 36 mmHg (35-45); ABG PH 7.43 pH Units (7.32-7.45); ABG PO2 83 mmHg (85-104); ABG TCO2 25 mEq/L (20-26); Blood Gas VT 450 cc
[2021-10-27 04:38] LABS: Basophils % 0.1 %; Hematocrit 23.2 % (37.5-50.1); Hemoglobin 7.1 g/dL (12.9-16.9); Lymphocytes # 0.4 K/mcL (0.6-4.6); Lymphocytes % 2.9 %; Mean Corpuscular HGB Conc 30.6 g/dL (31.6-35.5); Mean Corpuscular Hemoglobin 26.9 pg (28.0-33.3); Mean Corpuscular Volume 87.9 fL (83.0-100.0); Mean Platelet Volume 11.5 fL (9.4-12.4); Monocytes # 0.9 K/mcL (0.0-1.3); Monocytes % 6.2 %; Neutrophils # 13.2 K/mcL (1.6-8.9); Platelet Count 165 K/mcL (140-400); Red Blood Count 2.64 M/mcL (4.19-5.50); Red Cell Distribution Width 17.9 % (11.5-14.5); Segmented Neutrophils % 89.8 %; White Blood Count 14.7 K/mcL (4.3-11.1)
[2021-10-27 04:58] LABS: Alanine Aminotransferase 79 Units/L (7-52); Alkaline Phosphatase 60 Units/L (34-104); Aspartate Amino Transferase 48 Units/L (13-39); BUN/Creatinine Ratio 59 (6-26); Bilirubin,Total 0.3 mg/dL (0.3-1.0); Blood Urea Nitrogen 41 mg/dL (8-23); Calcium 8.4 mg/dL (8.6-10.3); Carbon Dioxide 25 mEq/L (23-29); Chloride 112 mEq/L (98-107); Glucose 183 mg/dL (70-105); Osmolality,Calculated 313 (280-300); Phosphorous 1.8 mg/dL (2.7-4.5); Potassium 3.7 mEq/L (3.5-5.1); Sodium 144 mEq/L (136-145); eGFR For African Americans > 60 (> 60); eGFR For Non-African Americans > 60 (> 60)
[2021-10-27] MEDS: *HR* Heparin 5,000 UNIT/ML VIAL SQ SCH ×3 (06:08→20:46)
[2021-10-27] MEDS: Hydrocortisone Sodium Succ 100 MG/2 ML VIAL IVP SCH ×2 (06:08→16:49)
[2021-10-27] MEDS: SODIUM ZIRCONIUM CYCLOSILICATE 5 GM POWD.PACK PO SCH (07:53)
[2021-10-27] MEDS: Vasopressin 40 UNIT in D5% in Water 100 ML IVC SCH (07:53)
[2021-10-27] MEDS: Meropenem 1,000 MG in 0.9 % Sodium Chloride 20 ML IVP SCH ×2 (07:57→16:00)
[2021-10-27] MEDS: Chlorhexidine Rinse 15 ML MOUTHWASH MM SCH ×2 (07:57→20:45)
[2021-10-27] MEDS: Pantoprazole 40 MG VIAL IVP SCH (07:57)
[2021-10-27] MEDS ORDERED: levETIRAcetam 500 MG/5 ML UDC GTUBE SCH (10:30)
[2021-10-27] MEDS: FentaNYL (PF) 1,000 MCG/100 ML IV.SOLN IVC SCH (11:36)
[2021-10-27] MEDS ORDERED: Dextrose Gel 15 GM/37.5 ML TUBE PO PRN ×2 (12:42)
[2021-10-27] MEDS ORDERED: D5% in Water 1,000 ML IVC PRN (12:42)
[2021-10-27] MEDS ORDERED: Calcium Gluconate 1gm/50mL 1 GM/50 ML BAG IVPB PRN (12:42)
[2021-10-27] MEDS ORDERED: Naloxone 0.4 MG/ML INJ IVP PRN (12:42)
[2021-10-27] MEDS ORDERED: FentaNYL (PF) 1,000 MCG/100 ML IV.SOLN IVC SCH (12:42)
[2021-10-27] MEDS ORDERED: Artificial Tears SOLN 15 ML BOTTLE BOTH EYES PRN (12:42)
[2021-10-27] MEDS ORDERED: Hydrocortisone Sodium Succ 100 MG/2 ML VIAL IVP SCH (18:00)
[2021-10-27] MEDS: levETIRAcetam 500 MG/5 ML UDC GTUBE SCH (20:45)
[2021-10-28] MEDS: Insulin LISPRO 300 UNITS/3 ML VIAL SUBQ SCH ×6 (00:13→20:19)
[2021-10-28] MEDS: Meropenem 1,000 MG in 0.9 % Sodium Chloride 20 ML IVP SCH ×4 (00:13→23:49)
[2021-10-28 04:32] LABS: Basophils % 0.1 %; Hematocrit 23.2 % (37.5-50.1); Hemoglobin 7.3 g/dL (12.9-16.9); Immature Granulocytes % 0.7 % (0-4); Lymphocytes # 0.8 K/mcL (0.6-4.6); Lymphocytes % 5.1 %; Mean Corpuscular HGB Conc 31.5 g/dL (31.6-35.5); Mean Corpuscular Hemoglobin 28.1 pg (28.0-33.3); Mean Corpuscular Volume 89.2 fL (83.0-100.0); Mean Platelet Volume 11.7 fL (9.4-12.4); Monocytes % 7.1 %; Neutrophils # 12.7 K/mcL (1.6-8.9); Platelet Count 162 K/mcL (140-400); Red Cell Distribution Width 18.5 % (11.5-14.5); White Blood Count 14.6 K/mcL (4.3-11.1)
[2021-10-28 04:49] LABS: Alanine Aminotransferase 58 Units/L (7-52); Albumin 2.9 g/dL (3.5-5.7); Alkaline Phosphatase 70 Units/L (34-104); Aspartate Amino Transferase 27 Units/L (13-39); BUN/Creatinine Ratio 75 (6-26); Bilirubin,Total 0.3 mg/dL (0.3-1.0); Blood Urea Nitrogen 49 mg/dL (8-23); Calcium 8.2 mg/dL (8.6-10.3); Carbon Dioxide 28 mEq/L (23-29); Chloride 113 mEq/L (98-107); Globulin 2.9 g/dL (2.4-3.5); Glucose 283 mg/dL (70-105); Magnesium 1.9 mg/dL (1.6-2.6); Osmolality,Calculated 329 (280-300); Phosphorous 1.8 mg/dL (2.7-4.5); Potassium 3.3 mEq/L (3.5-5.1); Sodium 148 mEq/L (136-145); Total Protein 5.8 g/dL (6.4-8.9); eGFR For African Americans > 60 (> 60); eGFR For Non-African Americans > 60 (> 60)
[2021-10-28] MEDS: Hydrocortisone Sodium Succ 100 MG/2 ML VIAL IVP SCH ×2 (05:44→17:01)
[2021-10-28] MEDS: *HR* Heparin 5,000 UNIT/ML VIAL SQ SCH ×2 (05:45→12:24)
[2021-10-28] MEDS: Chlorhexidine Rinse 15 ML MOUTHWASH MM SCH ×2 (07:46→20:17)
[2021-10-28] MEDS: levETIRAcetam 500 MG/5 ML UDC GTUBE SCH ×2 (07:46→20:16)
[2021-10-28] MEDS: Insulin DETEMIR 100 UNIT/ML X5UNITS SUBQ SCH ×2 (10:56→20:17)
[2021-10-28] MEDS ORDERED: Melatonin 3 MG TABLET GTUBE PRN (16:23)
[2021-10-28 17:38] LABS: Phosphorous 1.9 mg/dL (2.7-4.5); Potassium 5.2 mEq/L (3.5-5.1)
[2021-10-28] MEDS: Apixaban 5 MG TABLET GTUBE SCH (20:17)
[2021-10-29] MEDS: Insulin LISPRO 300 UNITS/3 ML VIAL SUBQ SCH ×6 (04:19→22:17)
[2021-10-29 04:33] LABS: Basophils % 0.2 %; Eosinophils % 0.3 %; Hematocrit 24.8 % (37.5-50.1); Hemoglobin 7.5 g/dL (12.9-16.9); Immature Granulocytes % 1.5 % (0-4); Lymphocytes # 0.9 K/mcL (0.6-4.6); Lymphocytes % 8.1 %; Mean Corpuscular HGB Conc 30.2 g/dL (31.6-35.5); Mean Corpuscular Volume 89.2 fL (83.0-100.0); Mean Platelet Volume 11.6 fL (9.4-12.4); Monocytes # 1.1 K/mcL (0.0-1.3); Monocytes % 10.1 %; Neutrophils # 8.9 K/mcL (1.6-8.9); Platelet Count 179 K/mcL (140-400); Red Blood Count 2.78 M/mcL (4.19-5.50); Red Cell Distribution Width 18.5 % (11.5-14.5); Segmented Neutrophils % 79.8 %; White Blood Count 11.2 K/mcL (4.3-11.1)
[2021-10-29 04:59] LABS: Alanine Aminotransferase 55 Units/L (7-52); Albumin 2.8 g/dL (3.5-5.7); Albumin/Globulin Ratio 0.9 (1.1-2.2); Alkaline Phosphatase 82 Units/L (34-104); Aspartate Amino Transferase 32 Units/L (13-39); BUN/Creatinine Ratio 70 (6-26); Bilirubin,Total 0.3 mg/dL (0.3-1.0); Blood Urea Nitrogen 38 mg/dL (8-23); Carbon Dioxide 34 mEq/L (23-29); Chloride 112 mEq/L (98-107); Globulin 3.1 g/dL (2.4-3.5); Glucose 108 mg/dL (70-105); Magnesium 2.1 mg/dL (1.6-2.6); Osmolality,Calculated 318 (280-300); Phosphorous 1.8 mg/dL (2.7-4.5); Potassium 3.5 mEq/L (3.5-5.1); Sodium 149 mEq/L (136-145); Total Protein 5.9 g/dL (6.4-8.9)
[2021-10-29] MEDS: Hydrocortisone Sodium Succ 100 MG/2 ML VIAL IVP SCH (05:15)
[2021-10-29] MEDS: Meropenem 1,000 MG in 0.9 % Sodium Chloride 20 ML IVP SCH ×2 (08:39→16:50)
[2021-10-29] MEDS: Apixaban 5 MG TABLET GTUBE SCH ×2 (08:40→21:56)
[2021-10-29] MEDS: levETIRAcetam 500 MG/5 ML UDC GTUBE SCH ×2 (08:40→21:55)
[2021-10-29] MEDS: Potassium Chloride Elixir 20 MEQ/15 ML UDC GTUBE SCH (08:40)
[2021-10-29] MEDS: Chlorhexidine Rinse 15 ML MOUTHWASH MM SCH ×2 (08:40→21:56)
[2021-10-29] MEDS: Ferrous Sulfate Oral Soln 300 MG/5 ML UDC GTUBE SCH (08:40)
[2021-10-29] MEDS: Lactobacillus 1 EACH CAP.SPRINK GTUBE SCH (08:40)
[2021-10-29] MEDS: Insulin DETEMIR 100 UNIT/ML X5UNITS SUBQ SCH ×2 (08:41→22:17)
[2021-10-29] MEDS ORDERED: lisinopriL 5 MG TABLET PO SCH (13:30)
[2021-10-29] MEDS: lisinopriL 5 MG TABLET GTUBE SCH (13:54)
[2021-10-29] MEDS: *HR* Dextrose 50 % in Water (Syg) 50 ML SYRINGE IVP PRN (22:20)
[2021-10-30] MEDS: Meropenem 1,000 MG in 0.9 % Sodium Chloride 20 ML IVP SCH ×3 (01:58→15:48)
[2021-10-30] MEDS: Insulin LISPRO 300 UNITS/3 ML VIAL SUBQ SCH ×6 (02:01→21:53)
[2021-10-30] MEDS: *HR* Dextrose 50 % in Water (Syg) 50 ML SYRINGE IVP PRN (02:02)
[2021-10-30 06:01] LABS: Basophils % 0.3 %; Eosinophils # 0.4 K/mcL (0.0-0.6); Eosinophils % 3.5 %; Hematocrit 26.2 % (37.5-50.1); Hemoglobin 8.2 g/dL (12.9-16.9); Immature Granulocytes % 4.9 % (0-4); Lymphocytes # 1.2 K/mcL (0.6-4.6); Lymphocytes % 10.1 %; Mean Corpuscular HGB Conc 31.3 g/dL (31.6-35.5); Mean Corpuscular Hemoglobin 27.8 pg (28.0-33.3); Mean Corpuscular Volume 88.8 fL (83.0-100.0); Mean Platelet Volume 11.1 fL (9.4-12.4); Monocytes # 1.6 K/mcL (0.0-1.3); Neutrophils # 8.3 K/mcL (1.6-8.9); Nucleated Red Blood Cells 0.2 /100 WBC (0); Platelet Count 198 K/mcL (140-400); Red Blood Count 2.95 M/mcL (4.19-5.50); Red Cell Distribution Width 18.6 % (11.5-14.5); Segmented Neutrophils % 68.2 %; White Blood Count 12.1 K/mcL (4.3-11.1)
[2021-10-30 06:25] LABS: BUN/Creatinine Ratio 63 (6-26); Blood Urea Nitrogen 30 mg/dL (8-23); Calcium 8.1 mg/dL (8.6-10.3); Carbon Dioxide 33 mEq/L (23-29); Chloride 108 mEq/L (98-107); Glucose 114 mg/dL (70-105); Magnesium 1.9 mg/dL (1.6-2.6); Osmolality,Calculated 311 (280-300); Potassium 3.5 mEq/L (3.5-5.1); Sodium 147 mEq/L (136-145)
[2021-10-30] MEDS: Apixaban 5 MG TABLET GTUBE SCH ×2 (10:01→21:48)
[2021-10-30] MEDS: Lactobacillus 1 EACH CAP.SPRINK GTUBE SCH (10:01)
[2021-10-30] MEDS: lisinopriL 5 MG TABLET GTUBE SCH (10:01)
[2021-10-30] MEDS: levETIRAcetam 500 MG/5 ML UDC GTUBE SCH ×2 (10:01→21:48)
[2021-10-30] MEDS: Potassium Chloride Elixir 20 MEQ/15 ML UDC GTUBE SCH (10:02)
[2021-10-30] MEDS: Chlorhexidine Rinse 15 ML MOUTHWASH MM SCH ×2 (10:02→21:48)
[2021-10-30] MEDS: Ferrous Sulfate Oral Soln 300 MG/5 ML UDC GTUBE SCH (10:02)
[2021-10-30] MEDS: Insulin DETEMIR 100 UNIT/ML X5UNITS SUBQ SCH (10:03)
[2021-10-30] MEDS ORDERED: Insulin DETEMIR 100 UNIT/ML X5UNITS SUBQ SCH (16:00)
[2021-10-31] MEDS: Insulin LISPRO 300 UNITS/3 ML VIAL SUBQ SCH ×6 (00:07→22:16)
[2021-10-31] MEDS: Meropenem 1,000 MG in 0.9 % Sodium Chloride 20 ML IVP SCH ×3 (00:35→17:23)
[2021-10-31 05:05] LABS: Basophils % 0.3 %; Eosinophils # 0.5 K/mcL (0.0-0.6); Eosinophils % 5.5 %; Hematocrit 22.6 % (37.5-50.1); Immature Granulocytes % 4.4 % (0-4); Lymphocytes # 1.6 K/mcL (0.6-4.6); Lymphocytes % 17.7 %; Mean Corpuscular Hemoglobin 26.9 pg (28.0-33.3); Mean Corpuscular Volume 86.9 fL (83.0-100.0); Mean Platelet Volume 11.3 fL (9.4-12.4); Monocytes % 11.3 %; Neutrophils # 5.4 K/mcL (1.6-8.9); Platelet Count 215 K/mcL (140-400); Red Cell Distribution Width 18.9 % (11.5-14.5); Segmented Neutrophils % 60.8 %; White Blood Count 8.8 K/mcL (4.3-11.1)
[2021-10-31 06:05] LABS: BUN/Creatinine Ratio 63 (6-26); Blood Urea Nitrogen 31 mg/dL (8-23); Calcium 7.5 mg/dL (8.6-10.3); Carbon Dioxide 31 mEq/L (23-29); Chloride 106 mEq/L (98-107); Glucose 214 mg/dL (70-105); Magnesium 2.1 mg/dL (1.6-2.6); Osmolality,Calculated 305 (280-300); Potassium 4.6 mEq/L (3.5-5.1); Sodium 141 mEq/L (136-145)
[2021-10-31] MEDS: Insulin DETEMIR 100 UNIT/ML X5UNITS SUBQ SCH ×2 (08:00→22:17)
[2021-10-31] MEDS: Chlorhexidine Rinse 15 ML MOUTHWASH MM SCH ×2 (08:01→22:16)
[2021-10-31] MEDS: levETIRAcetam 500 MG/5 ML UDC GTUBE SCH ×2 (08:01→22:17)
[2021-10-31] MEDS: Potassium Chloride Elixir 20 MEQ/15 ML UDC GTUBE SCH (08:01)
[2021-10-31] MEDS: Ferrous Sulfate Oral Soln 300 MG/5 ML UDC GTUBE SCH (08:01)
[2021-10-31] MEDS: Lactobacillus 1 EACH CAP.SPRINK GTUBE SCH (08:02)
[2021-10-31] MEDS: Apixaban 5 MG TABLET GTUBE SCH ×2 (08:02→22:16)
[2021-10-31] MEDS: lisinopriL 5 MG TABLET GTUBE SCH (08:02)
[2021-10-31] MEDS: Acetylcysteine 10% 2 ML INHSOL IH SCH ×3 (11:40→22:43)
[2021-10-31] MEDS: Albuterol 2.5 MG/3 ML NEBULIZER IH SCH ×3 (11:40→22:43)
[2021-11-01] MEDS: Insulin LISPRO 300 UNITS/3 ML VIAL SUBQ SCH ×6 (01:29→21:01)
[2021-11-01] MEDS: Meropenem 1,000 MG in 0.9 % Sodium Chloride 20 ML IVP SCH ×3 (01:34→16:55)
[2021-11-01] MEDS: Acetylcysteine 10% 2 ML INHSOL IH SCH ×4 (04:07→20:25)
[2021-11-01] MEDS: Albuterol 2.5 MG/3 ML NEBULIZER IH SCH ×4 (04:07→20:25)
[2021-11-01] MEDS: Chlorhexidine Rinse 15 ML MOUTHWASH MM SCH ×2 (09:02→21:05)
[2021-11-01 09:03] LABS: Basophils % 0.2 %; Eosinophils # 0.5 K/mcL (0.0-0.6); Eosinophils % 4.2 %; Hematocrit 23.4 % (37.5-50.1); Hemoglobin 7.4 g/dL (12.9-16.9); Immature Granulocytes % 2.3 % (0-4); Lymphocytes # 1.4 K/mcL (0.6-4.6); Lymphocytes % 12.8 %; Mean Corpuscular HGB Conc 31.6 g/dL (31.6-35.5); Mean Corpuscular Hemoglobin 27.7 pg (28.0-33.3); Mean Corpuscular Volume 87.6 fL (83.0-100.0); Mean Platelet Volume 10.4 fL (9.4-12.4); Monocytes # 0.8 K/mcL (0.0-1.3); Monocytes % 7.1 %; Neutrophils # 8.1 K/mcL (1.6-8.9); Platelet Count 258 K/mcL (140-400); Red Blood Count 2.67 M/mcL (4.19-5.50); Red Cell Distribution Width 18.6 % (11.5-14.5); Segmented Neutrophils % 73.4 %
[2021-11-01] MEDS: Ferrous Sulfate Oral Soln 300 MG/5 ML UDC GTUBE SCH (09:03)
[2021-11-01] MEDS: Potassium Chloride Elixir 20 MEQ/15 ML UDC GTUBE SCH (09:03)
[2021-11-01] MEDS: levETIRAcetam 500 MG/5 ML UDC GTUBE SCH ×2 (09:03→21:01)
[2021-11-01] MEDS: Insulin DETEMIR 100 UNIT/ML X5UNITS SUBQ SCH ×2 (09:03→21:05)
[2021-11-01] MEDS: lisinopriL 5 MG TABLET GTUBE SCH (09:04)
[2021-11-01] MEDS: Lactobacillus 1 EACH CAP.SPRINK GTUBE SCH (09:04)
[2021-11-01] MEDS: Apixaban 5 MG TABLET GTUBE SCH ×2 (09:04→21:00)
[2021-11-01 09:31] LABS: BUN/Creatinine Ratio 54 (6-26); Blood Urea Nitrogen 27 mg/dL (8-23); Calcium 8.1 mg/dL (8.6-10.3); Carbon Dioxide 32 mEq/L (23-29); Chloride 100 mEq/L (98-107); Glucose 191 mg/dL (70-105); Magnesium 1.9 mg/dL (1.6-2.6); Osmolality,Calculated 294 (280-300); Potassium 4.9 mEq/L (3.5-5.1); Sodium 137 mEq/L (136-145)
[2021-11-02] MEDS: Meropenem 1,000 MG in 0.9 % Sodium Chloride 20 ML IVP SCH ×4 (00:48→23:52)
[2021-11-02] MEDS: Insulin LISPRO 300 UNITS/3 ML VIAL SUBQ SCH ×7 (00:49→23:51)
[2021-11-02] MEDS: Acetylcysteine 10% 2 ML INHSOL IH SCH ×2 (04:05→09:47)
[2021-11-02] MEDS: Albuterol 2.5 MG/3 ML NEBULIZER IH SCH ×4 (04:05→22:05)
[2021-11-02] MEDS: Potassium Chloride Elixir 20 MEQ/15 ML UDC GTUBE SCH (08:26)
[2021-11-02] MEDS: Chlorhexidine Rinse 15 ML MOUTHWASH MM SCH ×2 (08:26→20:53)
[2021-11-02] MEDS: levETIRAcetam 500 MG/5 ML UDC GTUBE SCH ×2 (08:26→20:54)
[2021-11-02] MEDS: Lactobacillus 1 EACH CAP.SPRINK GTUBE SCH (08:27)
[2021-11-02] MEDS: lisinopriL 5 MG TABLET GTUBE SCH (08:27)
[2021-11-02] MEDS: Ferrous Sulfate Oral Soln 300 MG/5 ML UDC GTUBE SCH (08:28)
[2021-11-02] MEDS: Apixaban 5 MG TABLET GTUBE SCH ×2 (08:28→20:53)
[2021-11-02] MEDS: Insulin DETEMIR 100 UNIT/ML X5UNITS SUBQ SCH ×2 (08:33→20:53)
[2021-11-02 10:24] LABS: Basophils % 0.2 %; Eosinophils # 0.5 K/mcL (0.0-0.6); Eosinophils % 3.5 %; Hematocrit 26.7 % (37.5-50.1); Hemoglobin 8.4 g/dL (12.9-16.9); Immature Granulocytes % 1.4 % (0-4); Lymphocytes # 1.8 K/mcL (0.6-4.6); Lymphocytes % 12.6 %; Mean Corpuscular HGB Conc 31.5 g/dL (31.6-35.5); Mean Corpuscular Hemoglobin 27.4 pg (28.0-33.3); Mean Platelet Volume 10.5 fL (9.4-12.4); Monocytes # 0.8 K/mcL (0.0-1.3); Monocytes % 5.3 %; Neutrophils # 11.1 K/mcL (1.6-8.9); Platelet Count 373 K/mcL (140-400); Red Blood Count 3.07 M/mcL (4.19-5.50); Red Cell Distribution Width 18.5 % (11.5-14.5); White Blood Count 14.4 K/mcL (4.3-11.1)
[2021-11-02 10:46] LABS: BUN/Creatinine Ratio 40 (6-26); Blood Urea Nitrogen 23 mg/dL (8-23); Calcium 8.5 mg/dL (8.6-10.3); Carbon Dioxide 25 mEq/L (23-29); Chloride 101 mEq/L (98-107); Glucose 167 mg/dL (70-105); Magnesium 1.9 mg/dL (1.6-2.6); Osmolality,Calculated 283 (280-300); Potassium 6.5 mEq/L (3.5-5.1); Sodium 133 mEq/L (136-145)
[2021-11-02] MEDS ORDERED: Calcium Gluconate 1gm/50mL 1 GM/50 ML BAG IVPB ONE (11:19)
[2021-11-02] MEDS ORDERED: *HR* Dextrose 50 % in Water (Vial) 50 ML VIAL IVP ONE (11:20)
[2021-11-02] MEDS ORDERED: Insulin Human Regular 10 UNIT in 0.9 % Sodium Chloride 10 ML IV ONE (11:20)
[2021-11-02] MEDS: SODIUM ZIRCONIUM CYCLOSILICATE 5 GM POWD.PACK PO SCH ×3 (12:21→20:54)
[2021-11-02] MEDS: Psyllium 1 PACKET POWD.PACK GTUBE SCH ×3 (12:22→20:53)
[2021-11-02 13:41] LABS: ABG Base Excess 2 mEq/L (-2 to 3); ABG HCO3 27 mEq/L (21-27); ABG Oxygen Saturation 98 % (95-98); ABG PCO2 42 mmHg (35-45); ABG PH 7.42 pH Units (7.32-7.45); ABG PO2 99 mmHg (85-104); ABG TCO2 28 mEq/L (20-26); Blood Gas Modality ASSIST CONTROL; Blood Gas VT 450 cc
[2021-11-03] MEDS: Albuterol 2.5 MG/3 ML NEBULIZER IH SCH ×4 (04:02→22:35)
[2021-11-03] MEDS: Insulin LISPRO 300 UNITS/3 ML VIAL SUBQ SCH ×5 (05:06→21:11)
[2021-11-03 05:51] LABS: Basophils % 0.2 %; Eosinophils # 0.4 K/mcL (0.0-0.6); Eosinophils % 3.1 %; Hematocrit 25.7 % (37.5-50.1); Hemoglobin 8.1 g/dL (12.9-16.9); Immature Granulocytes % 1.3 % (0-4); Lymphocytes # 1.9 K/mcL (0.6-4.6); Lymphocytes % 14.2 %; Mean Corpuscular HGB Conc 31.5 g/dL (31.6-35.5); Mean Corpuscular Hemoglobin 27.3 pg (28.0-33.3); Mean Corpuscular Volume 86.5 fL (83.0-100.0); Mean Platelet Volume 10.3 fL (9.4-12.4); Monocytes # 0.9 K/mcL (0.0-1.3); Monocytes % 6.9 %; Neutrophils # 9.9 K/mcL (1.6-8.9); Platelet Count 387 K/mcL (140-400); Red Blood Count 2.97 M/mcL (4.19-5.50); Red Cell Distribution Width 18.3 % (11.5-14.5); Segmented Neutrophils % 74.3 %; White Blood Count 13.4 K/mcL (4.3-11.1)
[2021-11-03 06:27] LABS: BUN/Creatinine Ratio 43 (6-26); Blood Urea Nitrogen 29 mg/dL (8-23); Calcium 8.9 mg/dL (8.6-10.3); Carbon Dioxide 30 mEq/L (23-29); Chloride 99 mEq/L (98-107); Glucose 235 mg/dL (70-105); Magnesium 1.9 mg/dL (1.6-2.6); Osmolality,Calculated 295 (280-300); Phosphorous 4.1 mg/dL (2.7-4.5); Potassium 5.9 mEq/L (3.5-5.1); Sodium 136 mEq/L (136-145)
[2021-11-03] MEDS ORDERED: *HR* Dextrose 50 % in Water (Vial) 50 ML VIAL IVP ONE (09:25)
[2021-11-03] MEDS ORDERED: Insulin Human Regular 10 UNIT in 0.9 % Sodium Chloride 10 ML IV ONE (09:25)
[2021-11-03] MEDS: Apixaban 5 MG TABLET GTUBE SCH ×2 (10:07→20:54)
[2021-11-03] MEDS: lisinopriL 5 MG TABLET GTUBE SCH (10:07)
[2021-11-03] MEDS: Lactobacillus 1 EACH CAP.SPRINK GTUBE SCH (10:07)
[2021-11-03] MEDS: levETIRAcetam 500 MG/5 ML UDC GTUBE SCH ×2 (10:09→20:55)
[2021-11-03] MEDS: Ferrous Sulfate Oral Soln 300 MG/5 ML UDC GTUBE SCH (10:09)
[2021-11-03] MEDS: Chlorhexidine Rinse 15 ML MOUTHWASH MM SCH ×2 (10:09→20:52)
[2021-11-03] MEDS: Psyllium 1 PACKET POWD.PACK GTUBE SCH ×5 (10:10→20:55)
[2021-11-03] MEDS: SODIUM ZIRCONIUM CYCLOSILICATE 5 GM POWD.PACK PO SCH ×3 (10:10→20:54)
[2021-11-03] MEDS: Meropenem 1,000 MG in 0.9 % Sodium Chloride 20 ML IVP SCH ×3 (10:18→23:35)
[2021-11-03] MEDS: Insulin DETEMIR 100 UNIT/ML X5UNITS SUBQ SCH ×2 (10:34→21:11)
[2021-11-04] MEDS: Albuterol 2.5 MG/3 ML NEBULIZER IH SCH ×4 (03:58→22:16)
[2021-11-04] MEDS: Insulin LISPRO 300 UNITS/3 ML VIAL SUBQ SCH ×7 (04:56→23:37)
[2021-11-04] MEDS: Chlorhexidine Rinse 15 ML MOUTHWASH MM SCH ×2 (08:58→20:06)
[2021-11-04] MEDS: Ferrous Sulfate Oral Soln 300 MG/5 ML UDC GTUBE SCH (08:58)
[2021-11-04] MEDS: levETIRAcetam 500 MG/5 ML UDC GTUBE SCH ×2 (08:58→20:06)
[2021-11-04] MEDS: Psyllium 1 PACKET POWD.PACK GTUBE SCH ×3 (08:58→20:06)
[2021-11-04] MEDS: Apixaban 5 MG TABLET GTUBE SCH ×2 (08:59→20:06)
[2021-11-04] MEDS: Lactobacillus 1 EACH CAP.SPRINK GTUBE SCH (08:59)
[2021-11-04] MEDS: lisinopriL 5 MG TABLET GTUBE SCH (08:59)
[2021-11-04] MEDS: Meropenem 1,000 MG in 0.9 % Sodium Chloride 20 ML IVP SCH ×3 (09:00→23:38)
[2021-11-04] MEDS: Insulin DETEMIR 100 UNIT/ML X5UNITS SUBQ SCH ×2 (09:19→20:35)
[2021-11-04 09:42] LABS: Basophils % 0.2 %; Eosinophils # 0.4 K/mcL (0.0-0.6); Eosinophils % 2.1 %; Hematocrit 27.4 % (37.5-50.1); Hemoglobin 8.5 g/dL (12.9-16.9); Immature Granulocytes % 0.8 % (0-4); Lymphocytes # 1.7 K/mcL (0.6-4.6); Lymphocytes % 10.4 %; Mean Corpuscular Hemoglobin 26.9 pg (28.0-33.3); Mean Corpuscular Volume 86.7 fL (83.0-100.0); Mean Platelet Volume 10.1 fL (9.4-12.4); Monocytes # 1.4 K/mcL (0.0-1.3); Monocytes % 8.1 %; Neutrophils # 13.1 K/mcL (1.6-8.9); Platelet Count 474 K/mcL (140-400); Red Blood Count 3.16 M/mcL (4.19-5.50); Red Cell Distribution Width 17.9 % (11.5-14.5); Segmented Neutrophils % 78.4 %; White Blood Count 16.7 K/mcL (4.3-11.1)
[2021-11-04 09:59] LABS: BUN/Creatinine Ratio 46 (6-26); Blood Urea Nitrogen 33 mg/dL (8-23); Calcium 9.1 mg/dL (8.6-10.3); Carbon Dioxide 34 mEq/L (23-29); Chloride 97 mEq/L (98-107); Glucose 160 mg/dL (70-105); Osmolality,Calculated 293 (280-300); Phosphorous 4.5 mg/dL (2.7-4.5); Potassium 5.9 mEq/L (3.5-5.1); Sodium 136 mEq/L (136-145)
[2021-11-04] MEDS ORDERED: Sodium Bicarbonate 50 MEQ/50 ML VIAL IVP ONE (10:26)
[2021-11-04] MEDS ORDERED: D5% in Water 1,000 ML IVC SCH (10:30)
[2021-11-04] MEDS: SODIUM ZIRCONIUM CYCLOSILICATE 5 GM POWD.PACK PO SCH ×3 (14:53→20:05)
[2021-11-05] MEDS: Albuterol 2.5 MG/3 ML NEBULIZER IH SCH ×3 (03:57→15:34)
[2021-11-05] MEDS: Insulin LISPRO 300 UNITS/3 ML VIAL SUBQ SCH ×3 (04:11→12:42)
[2021-11-05 05:44] LABS: Basophils # 0.1 K/mcL (0.0-0.2); Basophils % 0.4 %; Eosinophils # 0.4 K/mcL (0.0-0.6); Eosinophils % 2.2 %; Hematocrit 25.9 % (37.5-50.1); Hemoglobin 8.2 g/dL (12.9-16.9); Immature Granulocytes % 1.1 % (0-4); Lymphocytes # 1.7 K/mcL (0.6-4.6); Lymphocytes % 10.7 %; Mean Corpuscular HGB Conc 31.7 g/dL (31.6-35.5); Mean Corpuscular Hemoglobin 27.5 pg (28.0-33.3); Mean Corpuscular Volume 86.9 fL (83.0-100.0); Mean Platelet Volume 10.3 fL (9.4-12.4); Monocytes # 1.2 K/mcL (0.0-1.3); Monocytes % 7.2 %; Neutrophils # 12.6 K/mcL (1.6-8.9); Platelet Count 476 K/mcL (140-400); Red Blood Count 2.98 M/mcL (4.19-5.50); Red Cell Distribution Width 17.9 % (11.5-14.5); Segmented Neutrophils % 78.4 %; White Blood Count 16.1 K/mcL (4.3-11.1)
[2021-11-05 06:01] LABS: BUN/Creatinine Ratio 49 (6-26); Blood Urea Nitrogen 39 mg/dL (8-23); Calcium 8.8 mg/dL (8.6-10.3); Carbon Dioxide 30 mEq/L (23-29); Chloride 97 mEq/L (98-107); Glucose 212 mg/dL (70-105); Osmolality,Calculated 290 (280-300); Phosphorous 4.3 mg/dL (2.7-4.5); Potassium 5.2 mEq/L (3.5-5.1); Sodium 132 mEq/L (136-145)
[2021-11-05] MEDS: Insulin DETEMIR 100 UNIT/ML X5UNITS SUBQ SCH (09:21)
[2021-11-05] MEDS: Ferrous Sulfate Oral Soln 300 MG/5 ML UDC GTUBE SCH (09:21)
[2021-11-05] MEDS: Chlorhexidine Rinse 15 ML MOUTHWASH MM SCH (09:21)
[2021-11-05] MEDS: levETIRAcetam 500 MG/5 ML UDC GTUBE SCH (09:21)
[2021-11-05] MEDS: Meropenem 1,000 MG in 0.9 % Sodium Chloride 20 ML IVP SCH (09:22)
[2021-11-05] MEDS: Psyllium 1 PACKET POWD.PACK GTUBE SCH (09:22)
[2021-11-05] MEDS: Lactobacillus 1 EACH CAP.SPRINK GTUBE SCH (09:22)
[2021-11-05] MEDS: lisinopriL 5 MG TABLET GTUBE SCH (09:23)
[2021-11-05] MEDS: Apixaban 5 MG TABLET GTUBE SCH (09:23)
[2021-11-05 13:41] LABS: Influenza A PCR Negative (Negative); Influenza B PCR Negative (Negative); Resp. Syncytial Virus PCR Negative (Negative)
[2021-11-05 13:59] LABS: SARS-CoV-2 by PCR (In House) Positive (Negative)
[2021-11-05 16:33] VITALS: BP 90/52; PULSE 100; TEMP 98.8; O2SAT 97
== END 2021-11-05 17:33 | DRG 720 ==
LOC: ICNU 17:15 → SUATTDRO 17:15 → 2NNU 10-29 20:37
PROVIDERS: ADMIT Internal Medicine; ATTEND Internal Medicine

== ENCOUNTER 2021-11-30 12:53 | Inpatient (IN) ==
[2021-11-30] MEDS ORDERED: Naloxone 0.4 MG/ML INJ IVP PRN (15:08)
[2021-11-30] MEDS ORDERED: Ondansetron 4 MG/2 ML VIAL IVP PRN (15:08)
[2021-11-30] MEDS ORDERED: Vancomycin (wt based) 1,000 MG VIAL IVPB SCH (16:00)
[2021-11-30] MEDS: Cefepime HCl 2,000 MG in 0.9 % Sodium Chloride 10 ML IVP SCH (17:40)
[2021-11-30 19:11] LABS: Influenza A PCR Negative (Negative); Influenza B PCR Negative (Negative); Resp. Syncytial Virus PCR Negative (Negative)
[2021-11-30 19:19] LABS: SARS-CoV-2 by PCR (In House) Positive (Negative)
[2021-12-01] MEDS: Cefepime HCl 2,000 MG in 0.9 % Sodium Chloride 10 ML IVP SCH ×3 (01:33→19:47)
[2021-12-01 02:39] LABS: Basophils # 0.1 K/mcL (0.0-0.2); Basophils % 0.9 %; Eosinophils # 0.2 K/mcL (0.0-0.6); Eosinophils % 1.8 %; Hematocrit 32.6 % (37.5-50.1); Hemoglobin 10.4 g/dL (12.9-16.9); Immature Granulocytes % 0.4 % (0-4); Lymphocytes # 1.6 K/mcL (0.6-4.6); Lymphocytes % 13.5 %; Mean Corpuscular HGB Conc 31.9 g/dL (31.6-35.5); Mean Corpuscular Hemoglobin 27.4 pg (28.0-33.3); Mean Platelet Volume 10.6 fL (9.4-12.4); Monocytes % 8.8 %; Neutrophils # 8.8 K/mcL (1.6-8.9); Platelet Count 399 K/mcL (140-400); Red Blood Count 3.79 M/mcL (4.19-5.50); Red Cell Distribution Width 17.6 % (11.5-14.5); Segmented Neutrophils % 74.6 %; White Blood Count 11.8 K/mcL (4.3-11.1)
[2021-12-01 02:51] LABS: Albumin 3.8 g/dL (3.5-5.7); Albumin/Globulin Ratio 0.8 (1.1-2.2); Bilirubin,Total 0.7 mg/dL (0.3-1.0); Calcium 9.9 mg/dL (8.6-10.3); Globulin 4.8 g/dL (2.4-3.5); Magnesium 2.8 mg/dL (1.6-2.6); Phosphorous 4.3 mg/dL (2.7-4.5); Potassium 4.4 mEq/L (3.5-5.1); Total Protein 8.6 g/dL (6.4-8.9)
[2021-12-01] MEDS: metroNIDAZOLE 500 MG TABLET GTUBE SCH (16:38)
[2021-12-01] MEDS ORDERED: *HR* Acetylcysteine 20% 600 MG/3 ML ORAL SYRINGE PO SCH (21:00)
[2021-12-02] MEDS: metroNIDAZOLE 500 MG TABLET GTUBE SCH ×3 (00:28→16:49)
[2021-12-02 04:53] LABS: Basophils # 0.1 K/mcL (0.0-0.2); Basophils % 0.9 %; Eosinophils # 0.3 K/mcL (0.0-0.6); Eosinophils % 2.2 %; Hematocrit 31.8 % (37.5-50.1); Hemoglobin 9.9 g/dL (12.9-16.9); Immature Granulocytes % 0.4 % (0-4); Lymphocytes # 1.3 K/mcL (0.6-4.6); Lymphocytes % 10.5 %; Mean Corpuscular HGB Conc 31.1 g/dL (31.6-35.5); Mean Corpuscular Hemoglobin 27.5 pg (28.0-33.3); Mean Corpuscular Volume 88.3 fL (83.0-100.0); Mean Platelet Volume 10.8 fL (9.4-12.4); Monocytes # 0.9 K/mcL (0.0-1.3); Monocytes % 6.9 %; Neutrophils # 10.1 K/mcL (1.6-8.9); Platelet Count 393 K/mcL (140-400); Red Cell Distribution Width 17.2 % (11.5-14.5); Segmented Neutrophils % 79.1 %; White Blood Count 12.7 K/mcL (4.3-11.1)
[2021-12-02 05:05] LABS: Albumin 3.9 g/dL (3.5-5.7); Albumin/Globulin Ratio 0.9 (1.1-2.2); Bilirubin,Total 0.8 mg/dL (0.3-1.0); Calcium 9.9 mg/dL (8.6-10.3); Globulin 4.5 g/dL (2.4-3.5); Magnesium 2.8 mg/dL (1.6-2.6); Potassium 4.1 mEq/L (3.5-5.1); Total Protein 8.4 g/dL (6.4-8.9)
[2021-12-02] MEDS ORDERED: *HR* LORazepam 2 MG/ML VIAL ONE (06:31)
[2021-12-02] MEDS ORDERED: levETIRAcetam 1,000 MG in 0.9 % Sodium Chloride 100 ML IVPB ONE (06:33)
[2021-12-02] MEDS ORDERED: *HR* LORazepam 2 MG/ML VIAL IVP STA (06:37)
[2021-12-02] MEDS: levETIRAcetam 500 MG/5 ML UDC GTUBE SCH ×3 (06:39→21:43)
[2021-12-02] MEDS ORDERED: Sodium Chloride for inhalation 3 ML VIAL IH PRN (06:44)
[2021-12-02] MEDS: Lactobacillus 1 EACH CAP.SPRINK GTUBE SCH (08:48)
[2021-12-02] MEDS: Ferrous Sulfate Oral Soln 300 MG/5 ML UDC GTUBE SCH (08:48)
[2021-12-02] MEDS: Finasteride 5 MG TABLET PO SCH (08:48)
[2021-12-02] MEDS: Cefepime HCl 2,000 MG in 0.9 % Sodium Chloride 10 ML IVP SCH (08:52)
[2021-12-02] MEDS ORDERED: Ipratropium/Albuterol Neb 3 ML IH SCH (09:00)
[2021-12-02] MEDS: Ipratropium 1 PUFF INHALER IH SCH ×2 (11:04→15:58)
[2021-12-02] MEDS ORDERED: 0.9 % Sodium Chloride 500 ML IVC ONE (12:26)
[2021-12-02] MEDS ORDERED: Dextrose Gel 15 GM/37.5 ML TUBE PO PRN ×2 (15:19)
[2021-12-02] MEDS ORDERED: D5% in Water 1,000 ML IVC PRN (15:19)
[2021-12-02] MEDS ORDERED: *HR* Dextrose 50 % in Water (Syg) 50 ML SYRINGE IVP PRN (15:19)
[2021-12-02] MEDS: Insulin LISPRO 300 UNITS/3 ML VIAL SUBQ SCH (16:59)
[2021-12-02] MEDS ORDERED: Acetylcysteine 10% 2 ML INHSOL IH SCH (18:00)
[2021-12-02 19:15] LABS: Influenza A PCR Negative (Negative); Influenza B PCR Negative (Negative); Resp. Syncytial Virus PCR Negative (Negative)
[2021-12-02 19:19] LABS: SARS-CoV-2 by PCR (In House) Positive (Negative)
[2021-12-02] MEDS ORDERED: *HR* Acetylcysteine 20% 600 MG/3 ML ORAL SYRINGE GTUBE SCH (21:00)
[2021-12-02] MEDS: *HR* Acetylcysteine 20% 600 MG/3 ML ORAL SYRINGE GTUBE SCH (21:43)
[2021-12-03] MEDS: Ipratropium 1 PUFF INHALER IH SCH ×4 (00:12→23:15)
[2021-12-03] MEDS: metroNIDAZOLE 500 MG TABLET GTUBE SCH ×4 (01:31→23:41)
[2021-12-03] MEDS: Insulin LISPRO 300 UNITS/3 ML VIAL SUBQ SCH ×5 (02:55→23:43)
[2021-12-03 05:11] LABS: Magnesium 2.8 mg/dL (1.6-2.6); Phosphorous 3.5 mg/dL (2.7-4.5)
[2021-12-03] MEDS ORDERED: Melatonin 3 MG TABLET GTUBE PRN (07:31)
[2021-12-03] MEDS: Ferrous Sulfate Oral Soln 300 MG/5 ML UDC GTUBE SCH (10:17)
[2021-12-03] MEDS: Chlorhexidine Rinse 15 ML MOUTHWASH MM SCH ×2 (10:17→20:15)
[2021-12-03] MEDS: levETIRAcetam 500 MG/5 ML UDC GTUBE SCH ×2 (10:17→20:15)
[2021-12-03] MEDS: Finasteride 5 MG TABLET PO SCH (10:17)
[2021-12-03] MEDS: Multivitamin Liquid 15 ML UDC GTUBE SCH (10:18)
[2021-12-03] MEDS: Psyllium 1 PACKET POWD.PACK GTUBE SCH ×3 (10:19→20:15)
[2021-12-03] MEDS: *HR* Acetylcysteine 20% 600 MG/3 ML ORAL SYRINGE GTUBE SCH ×2 (10:19→20:15)
[2021-12-03] MEDS: Lactobacillus 1 EACH CAP.SPRINK GTUBE SCH (10:19)
[2021-12-03] MEDS: Insulin DETEMIR 100 UNIT/ML X5UNITS SUBQ SCH (20:23)
[2021-12-04] MEDS: Insulin LISPRO 300 UNITS/3 ML VIAL SUBQ SCH ×5 (00:19→23:57)
[2021-12-04] MEDS: Psyllium 1 PACKET POWD.PACK GTUBE SCH ×3 (08:33→20:16)
[2021-12-04] MEDS: Chlorhexidine Rinse 15 ML MOUTHWASH MM SCH ×2 (08:33→20:16)
[2021-12-04] MEDS: Ferrous Sulfate Oral Soln 300 MG/5 ML UDC GTUBE SCH (08:34)
[2021-12-04] MEDS: levETIRAcetam 500 MG/5 ML UDC GTUBE SCH ×2 (08:34→20:16)
[2021-12-04] MEDS: *HR* Acetylcysteine 20% 600 MG/3 ML ORAL SYRINGE GTUBE SCH ×2 (08:34→20:16)
[2021-12-04] MEDS: Multivitamin Liquid 15 ML UDC GTUBE SCH (08:35)
[2021-12-04] MEDS: Finasteride 5 MG TABLET PO SCH (08:37)
[2021-12-04] MEDS: metroNIDAZOLE 500 MG TABLET GTUBE SCH ×3 (08:37→23:57)
[2021-12-04] MEDS: Lactobacillus 1 EACH CAP.SPRINK GTUBE SCH (08:37)
[2021-12-04 09:42] LABS: Basophils # 0.1 K/mcL (0.0-0.2); Basophils % 0.8 %; Eosinophils # 0.4 K/mcL (0.0-0.6); Eosinophils % 4.7 %; Hematocrit 29.4 % (37.5-50.1); Hemoglobin 8.9 g/dL (12.9-16.9); Immature Granulocytes % 0.3 % (0-4); Lymphocytes # 1.4 K/mcL (0.6-4.6); Lymphocytes % 15.9 %; Mean Corpuscular HGB Conc 30.3 g/dL (31.6-35.5); Mean Corpuscular Hemoglobin 27.5 pg (28.0-33.3); Mean Corpuscular Volume 90.7 fL (83.0-100.0); Mean Platelet Volume 10.5 fL (9.4-12.4); Monocytes # 0.7 K/mcL (0.0-1.3); Monocytes % 8.3 %; Neutrophils # 6.3 K/mcL (1.6-8.9); Platelet Count 319 K/mcL (140-400); Red Blood Count 3.24 M/mcL (4.19-5.50); Red Cell Distribution Width 16.9 % (11.5-14.5); White Blood Count 8.9 K/mcL (4.3-11.1)
[2021-12-04] MEDS: Ipratropium 1 PUFF INHALER IH SCH ×3 (10:56→22:53)
[2021-12-04 19:15] LABS: BUN/Creatinine Ratio 65 (6-26); Blood Urea Nitrogen 49 mg/dL (8-23); Calcium 9.5 mg/dL (8.6-10.3); Carbon Dioxide 23 mEq/L (23-29); Chloride 110 mEq/L (98-107); Glucose 277 mg/dL (70-105); Magnesium 2.2 mg/dL (1.6-2.6); Osmolality,Calculated 319 (280-300); Potassium 4.2 mEq/L (3.5-5.1); Sodium 143 mEq/L (136-145)
[2021-12-04] MEDS: Insulin DETEMIR 100 UNIT/ML X5UNITS SUBQ SCH (21:30)
[2021-12-05 03:32] LABS: Hematocrit 28.3 % (37.5-50.1); Hemoglobin 8.8 g/dL (12.9-16.9); Mean Corpuscular HGB Conc 31.1 g/dL (31.6-35.5); Mean Corpuscular Volume 90.1 fL (83.0-100.0); Mean Platelet Volume 11.1 fL (9.4-12.4); Platelet Count 312 K/mcL (140-400); Red Blood Count 3.14 M/mcL (4.19-5.50); Red Cell Distribution Width 16.7 % (11.5-14.5); White Blood Count 7.7 K/mcL (4.3-11.1)
[2021-12-05 03:43] LABS: INR 1.3; Prothrombin Time 14.4 Seconds (9.4-12.1)
[2021-12-05 03:51] LABS: BUN/Creatinine Ratio 74 (6-26); Blood Urea Nitrogen 48 mg/dL (8-23); Calcium 9.2 mg/dL (8.6-10.3); Carbon Dioxide 24 mEq/L (23-29); Chloride 110 mEq/L (98-107); Glucose 136 mg/dL (70-105); Magnesium 2.1 mg/dL (1.6-2.6); Osmolality,Calculated 311 (280-300); Potassium 4.1 mEq/L (3.5-5.1); Sodium 143 mEq/L (136-145)
[2021-12-05] MEDS: Insulin LISPRO 300 UNITS/3 ML VIAL SUBQ SCH ×3 (05:53→18:19)
[2021-12-05] MEDS ORDERED: Haloperidol Lactate 5 MG/ML VIAL IVP ONE (08:22)
[2021-12-05] MEDS: levETIRAcetam 500 MG/5 ML UDC GTUBE SCH ×2 (08:53→21:15)
[2021-12-05] MEDS: Chlorhexidine Rinse 15 ML MOUTHWASH MM SCH ×2 (08:53→21:15)
[2021-12-05] MEDS: Lactobacillus 1 EACH CAP.SPRINK GTUBE SCH (08:54)
[2021-12-05] MEDS: metroNIDAZOLE 500 MG TABLET GTUBE SCH ×2 (08:54→16:43)
[2021-12-05] MEDS: Multivitamin Liquid 15 ML UDC GTUBE SCH (08:54)
[2021-12-05] MEDS: Finasteride 5 MG TABLET PO SCH (08:54)
[2021-12-05] MEDS: *HR* Acetylcysteine 20% 600 MG/3 ML ORAL SYRINGE GTUBE SCH (08:54)
[2021-12-05] MEDS: Psyllium 1 PACKET POWD.PACK GTUBE SCH ×3 (08:55→21:16)
[2021-12-05] MEDS: Ferrous Sulfate Oral Soln 300 MG/5 ML UDC GTUBE SCH ×2 (08:55→12:38)
[2021-12-05] MEDS: Ipratropium 1 PUFF INHALER IH SCH ×2 (10:58→16:14)
[2021-12-05] MEDS: Insulin DETEMIR 100 UNIT/ML X5UNITS SUBQ SCH (21:16)
[2021-12-06] MEDS: Insulin LISPRO 300 UNITS/3 ML VIAL SUBQ SCH ×4 (00:45→18:37)
[2021-12-06] MEDS: *HR* Acetylcysteine 20% 600 MG/3 ML ORAL SYRINGE GTUBE SCH ×3 (00:45→21:10)
[2021-12-06] MEDS: metroNIDAZOLE 500 MG TABLET GTUBE SCH ×4 (00:45→23:20)
[2021-12-06] MEDS: Ipratropium 1 PUFF INHALER IH SCH ×3 (03:00→16:14)
[2021-12-06] MEDS: Multivitamin Liquid 15 ML UDC GTUBE SCH (08:46)
[2021-12-06] MEDS: Psyllium 1 PACKET POWD.PACK GTUBE SCH ×3 (08:46→21:10)
[2021-12-06] MEDS: levETIRAcetam 500 MG/5 ML UDC GTUBE SCH ×2 (08:47→21:10)
[2021-12-06] MEDS: Finasteride 5 MG TABLET PO SCH (08:47)
[2021-12-06] MEDS: Chlorhexidine Rinse 15 ML MOUTHWASH MM SCH ×3 (08:47→21:34)
[2021-12-06] MEDS: Lactobacillus 1 EACH CAP.SPRINK GTUBE SCH (08:47)
[2021-12-06] MEDS: Ferrous Sulfate Oral Soln 300 MG/5 ML UDC GTUBE SCH (08:48)
[2021-12-06] MEDS: Insulin DETEMIR 100 UNIT/ML X5UNITS SUBQ SCH (21:57)
[2021-12-07] MEDS: Insulin LISPRO 300 UNITS/3 ML VIAL SUBQ SCH ×5 (00:37→23:53)
[2021-12-07] MEDS: Ipratropium 1 PUFF INHALER IH SCH ×4 (04:28→23:21)
[2021-12-07 06:25] LABS: Hematocrit 30.3 % (37.5-50.1); Hemoglobin 9.3 g/dL (12.9-16.9); Mean Corpuscular HGB Conc 30.7 g/dL (31.6-35.5); Mean Corpuscular Volume 88.1 fL (83.0-100.0); Platelet Count 339 K/mcL (140-400); Red Blood Count 3.44 M/mcL (4.19-5.50); Red Cell Distribution Width 16.2 % (11.5-14.5); White Blood Count 10.6 K/mcL (4.3-11.1)
[2021-12-07 06:43] LABS: BUN/Creatinine Ratio 44 (6-26); Blood Urea Nitrogen 30 mg/dL (8-23); Calcium 9.4 mg/dL (8.6-10.3); Carbon Dioxide 22 mEq/L (23-29); Chloride 105 mEq/L (98-107); Glucose 220 mg/dL (70-105); Osmolality,Calculated 297 (280-300); Potassium 3.6 mEq/L (3.5-5.1); Sodium 137 mEq/L (136-145)
[2021-12-07] MEDS: Ferrous Sulfate Oral Soln 300 MG/5 ML UDC GTUBE SCH (09:15)
[2021-12-07] MEDS: Multivitamin Liquid 15 ML UDC GTUBE SCH (09:15)
[2021-12-07] MEDS: levETIRAcetam 500 MG/5 ML UDC GTUBE SCH ×2 (09:15→22:40)
[2021-12-07] MEDS: *HR* Acetylcysteine 20% 600 MG/3 ML ORAL SYRINGE GTUBE SCH ×2 (09:15→22:39)
[2021-12-07] MEDS: Chlorhexidine Rinse 15 ML MOUTHWASH MM SCH ×2 (09:15→22:39)
[2021-12-07] MEDS: metroNIDAZOLE 500 MG TABLET GTUBE SCH ×3 (09:16→23:53)
[2021-12-07] MEDS: Psyllium 1 PACKET POWD.PACK GTUBE SCH ×3 (09:16→22:39)
[2021-12-07] MEDS: Lactobacillus 1 EACH CAP.SPRINK GTUBE SCH (09:16)
[2021-12-07] MEDS: Finasteride 5 MG TABLET PO SCH (09:16)
[2021-12-07] MEDS: Insulin DETEMIR 100 UNIT/ML X5UNITS SUBQ SCH (23:04)
[2021-12-08 03:40] LABS: BUN/Creatinine Ratio 37 (6-26); Blood Urea Nitrogen 26 mg/dL (8-23); Calcium 8.9 mg/dL (8.6-10.3); Carbon Dioxide 21 mEq/L (23-29); Chloride 107 mEq/L (98-107); Glucose 137 mg/dL (70-105); Osmolality,Calculated 291 (280-300); Potassium 4.2 mEq/L (3.5-5.1); Sodium 137 mEq/L (136-145)
[2021-12-08] MEDS: Insulin LISPRO 300 UNITS/3 ML VIAL SUBQ SCH ×3 (04:18→17:43)
[2021-12-08 07:17] LABS: Hematocrit 27.3 % (37.5-50.1); Hemoglobin 8.6 g/dL (12.9-16.9); Mean Corpuscular HGB Conc 31.5 g/dL (31.6-35.5); Mean Corpuscular Hemoglobin 27.9 pg (28.0-33.3); Mean Corpuscular Volume 88.6 fL (83.0-100.0); Mean Platelet Volume 11.1 fL (9.4-12.4); Platelet Count 271 K/mcL (140-400); Red Blood Count 3.08 M/mcL (4.19-5.50); Red Cell Distribution Width 16.2 % (11.5-14.5)
[2021-12-08] MEDS: Psyllium 1 PACKET POWD.PACK GTUBE SCH ×3 (08:55→20:22)
[2021-12-08] MEDS: metroNIDAZOLE 500 MG TABLET GTUBE SCH ×2 (08:55→15:57)
[2021-12-08] MEDS: Finasteride 5 MG TABLET PO SCH (08:55)
[2021-12-08] MEDS: Lactobacillus 1 EACH CAP.SPRINK GTUBE SCH (08:55)
[2021-12-08] MEDS: *HR* Acetylcysteine 20% 600 MG/3 ML ORAL SYRINGE GTUBE SCH ×2 (08:56→20:21)
[2021-12-08] MEDS: levETIRAcetam 500 MG/5 ML UDC GTUBE SCH ×2 (08:56→20:21)
[2021-12-08] MEDS: Ferrous Sulfate Oral Soln 300 MG/5 ML UDC GTUBE SCH (08:56)
[2021-12-08] MEDS: Chlorhexidine Rinse 15 ML MOUTHWASH MM SCH ×2 (08:56→20:21)
[2021-12-08] MEDS: Multivitamin Liquid 15 ML UDC GTUBE SCH (08:56)
[2021-12-08] MEDS: Ipratropium 1 PUFF INHALER IH SCH ×2 (10:25→14:56)
[2021-12-08] MEDS: Insulin DETEMIR 100 UNIT/ML X5UNITS SUBQ SCH (20:22)
[2021-12-09] MEDS: Ipratropium 1 PUFF INHALER IH SCH ×2 (00:47→10:55)
[2021-12-09] MEDS: metroNIDAZOLE 500 MG TABLET GTUBE SCH ×2 (01:40→08:13)
[2021-12-09] MEDS: Insulin LISPRO 300 UNITS/3 ML VIAL SUBQ SCH ×2 (01:46→06:29)
[2021-12-09 04:10] VITALS: O2SAT 100
[2021-12-09 07:26] VITALS: TEMP 98.5
[2021-12-09] MEDS: *HR* Acetylcysteine 20% 600 MG/3 ML ORAL SYRINGE GTUBE SCH (08:12)
[2021-12-09] MEDS: Multivitamin Liquid 15 ML UDC GTUBE SCH (08:12)
[2021-12-09] MEDS: Psyllium 1 PACKET POWD.PACK GTUBE SCH (08:12)
[2021-12-09] MEDS: levETIRAcetam 500 MG/5 ML UDC GTUBE SCH (08:13)
[2021-12-09] MEDS: Chlorhexidine Rinse 15 ML MOUTHWASH MM SCH (08:13)
[2021-12-09] MEDS: Finasteride 5 MG TABLET PO SCH (08:13)
[2021-12-09] MEDS: Lactobacillus 1 EACH CAP.SPRINK GTUBE SCH (08:13)
[2021-12-09] MEDS: Ferrous Sulfate Oral Soln 300 MG/5 ML UDC GTUBE SCH (08:13)
[2021-12-09] MEDS ORDERED: Insulin LISPRO 300 UNITS/3 ML VIAL SUBQ SCH (10:26)
[2021-12-09 10:56] VITALS: BP 122/62; PULSE 80
== END 2021-12-09 15:05 | DRG 720 ==
LOC: 2NNU → SUATTDRO 14:26
PROVIDERS: ADMIT Student in an Organized Health Care Education/Training Program; ATTEND Internal Medicine

== ENCOUNTER 2022-01-07 15:23 | Observation (INO) ==
[2022-01-07] MEDS ORDERED: Ondansetron ODT 4 MG TAB.RAPDIS SL PRN (19:16)
[2022-01-07] MEDS ORDERED: Naloxone 0.4 MG/ML INJ IVP PRN (19:16)
[2022-01-07] MEDS ORDERED: Melatonin 3 MG TABLET PO PRN (19:16)
[2022-01-07] MEDS ORDERED: Sodium Chloride for inhalation 3 ML VIAL IH PRN (19:24)
[2022-01-07] MEDS ORDERED: Melatonin 3 MG TABLET GTUBE PRN (19:24)
[2022-01-07] MEDS ORDERED: Dextrose Gel 15 GM/37.5 ML TUBE PO PRN ×2 (19:38)
[2022-01-07] MEDS ORDERED: *HR* Dextrose 50 % in Water (Syg) 50 ML SYRINGE IVP PRN (19:38)
[2022-01-07] MEDS ORDERED: D5% in Water 1,000 ML IVC PRN (19:38)
[2022-01-07] MEDS ORDERED: Insulin DETEMIR 100 UNIT/ML X5UNITS SUBQ SCH (21:00)
[2022-01-07] MEDS ORDERED: Insulin LISPRO 300 UNITS/3 ML VIAL SUBQ SCH (21:00)
[2022-01-07] MEDS: levETIRAcetam 500 MG/5 ML UDC GTUBE SCH (21:50)
[2022-01-07 22:09] LABS: BUN/Creatinine Ratio 64 (6-26); Blood Urea Nitrogen 58 mg/dL (8-23); Calcium 9.3 mg/dL (8.6-10.3); Carbon Dioxide 22 mEq/L (23-29); Chloride 100 mEq/L (98-107); Glucose 183 mg/dL (70-105); Osmolality,Calculated 299 (280-300); Potassium 4.2 mEq/L (3.5-5.1); Sodium 134 mEq/L (136-145)
[2022-01-07 22:20] VITALS: O2SAT 100
[2022-01-08] MEDS: levETIRAcetam 500 MG/5 ML UDC GTUBE SCH (08:23)
[2022-01-08] MEDS ORDERED: Lactobacillus 1 EACH CAP.SPRINK GTUBE SCH (09:00)
[2022-01-08] MEDS: Insulin LISPRO 300 UNITS/3 ML VIAL SUBQ SCH ×2 (12:45→12:46)
[2022-01-08] MEDS ORDERED: Acetaminophen 325 MG TABLET PO PRN (13:42)
[2022-01-08] MEDS ORDERED: Psyllium 1 PACKET POWD.PACK GTUBE SCH (15:00)
[2022-01-08 16:00] VITALS: BP 116/44; TEMP 98.8
[2022-01-08 17:25] VITALS: PULSE 83
[2022-01-09] MEDS ORDERED: Ferrous Sulfate Oral Soln 300 MG/5 ML UDC GTUBE SCH (09:00)
[2022-01-09] MEDS ORDERED: Multivitamin Liquid 15 ML UDC GTUBE SCH (09:00)
[2022-01-09] MEDS ORDERED: Finasteride 5 MG TABLET PO SCH (09:00)
== END 2022-01-08 17:53 ==
LOC: 2NNU → SUATTDRO 18:20
PROVIDERS: ADMIT Internal Medicine; ATTEND Internal Medicine